=== PATIENT | female | born 1970 | race Caucasian/White ===

== ENCOUNTER 2019-03-02 08:36 | Emergency (ER) | payer OTHER, SELFPAY ==
[2019-03-02 08:37] VITALS: BP 139/84; PULSE 85; RESP 18; TEMP 36.4; O2SAT 98; BMI 30.4
--- NOTE | 2019-03-02 08:55 | ED.VIS.GEN ---
History of Present Illness Chief Complaint: Hypertension Informant: Patient, Family Onset: Today Narrative: Patient presents with concerns for hypertension. She is a history of hypertension and takes a half a tab of lisinopril a day. She believes that tabs are 25 mg. She states she has not checked her blood pressure at home for quite some time and checked it last evening. It was 126/93. Patient states she checked her blood pressure this morning and it read quite high on her home monitor. 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 Pressure readings there were 210/105 and 170/110. Patient states they had checked pressure on her left arm only. Patient went home and took her lisinopril and called her doctor's office. Doctor's office advised the pressure was too high for them to see in the office and she needed to go the emergency room. In triage here blood pressure is 139/84. Patient does report having some intermittent reflux symptoms. She denies headache. She reports being more fatigued, but states she does not sleep well and attributed it to that. - Past Medical History (1) Hypertension Status: Chronic Past Medical History Primary Care Physician: Zenaida Barksdale DO [Primary Care Provider] - Lives: With Family Review of Systems General: Denies: Chills, Fever Eyes: Denies: Visual changes - bilaterally ENT: Denies: Bilateral ear pain Cardiovascular: Reports: Chest pain - She attributes to reflux. Respiratory: Denies: Dyspnea, Cough Gastrointestinal: Denies: Abdominal pain, Nausea, Vomiting Musculoskeletal: Denies: Back pain, Extremity Pain Neurological: Denies: Headache, Weakness, Parasthesia Hematologic: Denies: Easy bruising Allergy: Denies: Uticaria Physical Exam Vital Signs/Narrative: Vital Signs Temp Pulse Resp BP Pulse Ox 03/02/19 08:37 97.6 F L 85 18 139/84 H 98 Inital Vital Signs reviewed: Yes General: Well nourished, Well developed Head: Normocephalic ENT: Moist mucous membranes Neck: Supple Cardiovascular: Regular rate, Regular rhythm Respiratory: No distress, CTA bilaterally Abdomen: Soft, Nontender Back: Nontender Extremities: Nontender Skin: Normal color, No rash Neurological: Alert, Oriented x3, Normal Strength, Normal Sensation Psychological: Normal affect Diagnostic/Tx/Re-eval Impressions Chest X-Ray 03/02/19 09:05 IMPRESSION: Normal x-ray examination of the chest. Electronically Signed: Paul Das, at 9:22 EST , Service support , 03/02/19 09:05 Chest 1 View (Portable) [RAD] Stat Laboratory Results 03/02/19 03/02/19 03/02/19 09:14 09:14 09:14 WBC 7.3 RBC 4.85 Hgb 14.9 Hct 44.4 MCV 91.5 MCH 30.7 MCHC 33.6 RDW Std Deviation 39.5 RDW Coeff of Claudio 11.8 Plt Count 315 MPV 9.6 Immature Gran % (Auto) 0.400 Neut % (Auto) 82.6 H Lymph % (Auto) 11.7 L Grand % (Auto) 4.3 Eos % (Auto) 0.3 Baso % (Auto) 0.7 Absolute Neuts (auto) 6.0 Absolute Lymphs (auto) 0.85 Nucleated RBC % 0 Sodium 139 Potassium 3.9 Chloride 105 Carbon Dioxide 24.0 Anion Gap 10 BUN 12 Creatinine 1.00 Estim Creat Clear Calc 62.58 Est GFR (MDRD) Af Amer 76 Est GFR (MDRD) Non-Af 63 BUN/Creatinine Ratio 12.0 Glucose 115 H Calcium 9.3 Troponin I < 0.015 Serum , Qual NEGATIVE Urine Color Urine Clarity Urine pH Ur Specific [place] Urine Protein Urine Glucose (UA) Urine Ketones Urine Occult Blood Urine Nitrite Urine Bilirubin Urine Urobilinogen Ur Leukocyte Esterase Urine RBC Urine WBC Ur Squamous Epith Cells Urine Bacteria Urine Mucus 03/02/19 09:20 WBC RBC Hgb Hct MCV MCH MCHC RDW Std Deviation RDW Coeff of Claudio Plt Count MPV Immature Gran % (Auto) Neut % (Auto) Lymph % (Auto) Grand % (Auto) Eos % (Auto) Baso % (Auto) Absolute Neuts (auto) Absolute Lymphs (auto) Nucleated RBC % Sodium Potassium Chloride Carbon Dioxide Anion Gap BUN Creatinine Estim Creat Clear Calc Est GFR (MDRD) Af Amer Est GFR (MDRD) Non-Af BUN/Creatinine Ratio Glucose Calcium Troponin I Serum , Qual Urine Color Yellow Urine Clarity Clear Urine pH 7.0 Ur Specific [place] 1.005 Urine Protein Negative Urine Glucose (UA) Normal Urine Ketones Negative Urine Occult Blood 50 H Urine Nitrite Negative Urine Bilirubin Negative Urine Urobilinogen Normal Ur Leukocyte Esterase Negative Urine RBC 0 SEEN Urine WBC 0 SEEN Ur Squamous Epith Cells 0 SEEN Urine Bacteria 0 SEEN Urine Mucus 0 SEEN - EKG Initial EKG Interpretation: Sinus Rhythm - Sinus at 95. Minimal anterior lateral ST depression at approximately 1/2 mm. - Medical Decision Making Patient was observed on panel monitor here. When I first saw the patient her blood pressure in her right arm was 165/88 and left arm was 147/78. At this time I rechecked blood pressure in each arm and they are essentially the same, left arm 150/83, right arm 153/99. At this time I will speak with her primary care physician. My suspicion is that we will have patient check her blood pressure couple times a day and keep a journal and follow-up in the office early next week. After speaking with Dr. Barksdale patient is advised to go ahead and take full tab of lisinopril daily and keep a journal of her blood pressures. ED Disposition - Plan for ED Patient: Disposition: Home or Assisted Living Diagnosis: Hypertension Instructions: HYPERTENSION, Established Referrals: Zenaida Barksdale DO [Primary Care Provider] - 5-7 Days Additional Instructions: Take a full tab of Lisinopril daily. Keep a journal of your blood pressures at home and follow-up with Dr Barksdale next week.
--- NOTE | 2019-03-02 09:05 | RAD_ITS ---
STUDY: X-RAY CHEST REASON FOR EXAM: Female, 48 years old. Chest pain. Hypertension. TECHNIQUE: Single AP portable view of the chest. COMPARISON: None. FINDINGS: The lungs are clear and expanded. There is no demonstrated pleural abnormality. Normal size heart. Normal mediastinum and марина. Normal visualized pulmonary arteries. Normal visualized aortic arch and descending thoracic aorta. Normal visualized thoracic spine. Normal visualized ribs, clavicles, and shoulders. There is no demonstrated abnormality of the visualized soft tissue structures of the upper abdomen. RAD/Chest 1 View (Portable) IMPRESSION: Normal x-ray examination of the chest. Electronically Signed: Paul Das, at 9:22 EST , Service support ,
[2019-03-02 09:23] LABS: Bacteria 0 SEEN /hpf (None Seen); Mucous, Urine 0 SEEN /hpf (<or=2+); Red Blood Cells-Urine 0 SEEN /hpf (0-5); Squamous Epithelial Cells - UA 0 SEEN /hpf (5-10); White Blood Cells 0 SEEN /hpf (0-5)
[2019-03-02 09:27] LABS: Absolute Lymphocyte Count 0.85 X10^3/uL (0.83-4.51); Basophil# 0.05 X10^3/uL; Basophil% 0.7 % (0-1); Eosinophil# 0.02 X10^3/uL; Eosinophils% 0.3 % (0-5); Hematocrit 44.4 % (37-47); Hemoglobin 14.9 g/dL (12.0-15.0); Lymphocyte # 0.85 X10^3/ul (4.0); Lymphocyte % 11.7 % (19-41); Mean Corp Hgb Conc 33.6 g/dL (32-36); Mean Corpuscular Hgb 30.7 pg (27.0-32.0); Mean Corpuscular Volume 91.5 fL (81-99); Mean Platelet Vol. 9.6 fl (6.2-12.0); Monocyte# 0.31 X10^3/uL; Monocyte% 4.3 % (0-10); NRBC Flagged by Analyzer 0 % (0-5); Neutrophil # 6.03 X10^3/uL (2.7-7.7); Neutrophil % 82.6 % (47-70); Platelet Count 315 K/mm3 (150-450); RBC Distribution Width CV 11.8 % (11.6-14.6); RBC Distribution Width SD 39.5 fl (35.1-43.9); Red Blood Count 4.85 M/mm3 (4.2-5.4); White Blood Count 7.3 K/mm3 (4.4-11.0)
[2019-03-02 09:31] LABS: Internal QC Validated? YES +Cl - CLEAR BKGD; Pregnancy, Serum, hCG Quali. NEGATIVE Negative
[2019-03-02 09:36] LABS: Color, Urine Yellow (Yellow); Glucose, Dipstick Normal (Normal); Ketone-Dipstick Negative (Negative); Leukocyte Esterase-Dipstick Negative /ul (Negative); Nitrite-Dipstick Negative (Negative); Occult Blood-Urine 50 /ul (Negative); Protein-Dipstick Negative (Negative); Specific Gravity, Urine 1.005 (1.002-1.030); Urine Bilirubin Dipstick Negative (Negative); Urine Clarity Clear (Clear); Urine Urobilinogen Normal (Normal)
[2019-03-02 09:42] LABS: Anion Gap 10 (5-15); BUN 12 mg/dL (7-18); Calcium,Total 9.3 mg/dL (8.5-10.1); Chloride 105 mmol/L (98-107); EST Glomerular Filtration Rate 63 mL/min (>60); Est Glom Filt Rate - Afr Amer 76 mL/min (>60); Estimated Creatinine Clearance 62.58 ml/min; Glucose 115 mg/dL (74-106); Potassium 3.9 mmol/L (3.5-5.1); Sodium Level 139 mmol/L (136-145)
[2019-03-02 10:25] VITALS: BP 158/99; RESP 20
== END 2019-03-02 10:27 | disposition home or self-care (01) ==
PROVIDERS: Emergency Provider Emergency Medicine; Family Provider Internal Medicine; PCP Internal Medicine
DX: I10 Essential (primary) hypertension (principal); Z79.899 Other long term (current) drug therapy
CPT/HCPCS: 71045; 80048; 81001; 84484; 84703; 85025; 93005; 99285

== ENCOUNTER 2020-07-24 14:58 | Outpatient (RCR) | payer OTHER, SELFPAY | END 2020-09-24 23:59 | LOC: IMMUN 14:58 | PROVIDERS: PCP Internal Medicine; Referring Provider Family Medicine; Visit Provider Family Medicine | DX: Z23 Encounter for immunization (principal) | CPT/HCPCS: 0001A; 0002A; 91300 ==

== ENCOUNTER 2021-12-06 23:48 | Emergency (ER) | payer OTHER, SELFPAY ==
[2021-12-06 23:50] VITALS: BP 159/93; PULSE 115; RESP 18; TEMP 36.7; O2SAT 99; BMI 25.0
[2021-12-07 00:46] VITALS: BP 148/87; PULSE 103; RESP 16; O2SAT 98
--- NOTE | 2021-12-07 00:46 | EKG12_ITS ---
Test Reason : PALPS Blood Pressure : / mmHG Vent. Rate : 096 BPM Atrial Rate : 096 BPM P-R Int : 118 ms QRS Dur : 080 ms QT Int : 344 ms P-R-T Axes : 051 073 039 degrees QTc Int : 434 ms Normal sinus rhythm Nonspecific ST abnormality Abnormal ECG Confirmed by OSIEL FANG, JARED ([id number]), video editor MELVI MATTA ([id number]) on 12/09/2021 12:48:49 PM Referred By: ALVARO Confirmed By:JARED CARTAGENA MD
--- NOTE | 2021-12-07 00:47 | EDS_ITS ---
HPI History of Present Illness Chief Complaint: Palpitations Informant: patient and spouse/S.O. Onset/Context/Timing Onset: Today (Several hours ago) Context: Sudden Onset (Soon after got off couch and took a drink of alcoholic beverage) Timing: Continuous Quality: Racing Location: chest Current Severity: Gone Maximum Severity: Moderate Worsened by: nothing Relieved by: nothing in particular Associated Symptoms Associated Symptoms: none Narrative Narrative: patient had sudden onset of racing heartbeat tonight. No associated chest discomfort, dyspnea, lightheadedness or near syncope/syncope, started going away as she came to the ED and now she is asymptomatic. She states when it was racing she was feeling anxious and that made it feel like it was racing further, she checked her blood pressure and it was elevated which made her feel more anxious. She has had episodes like this in the past but the last one was 2 or 3 years ago, this is only the third or fourth time it has happened. [facility] Medical History (Updated 12/07/21 @ 01:[address] Wesley Luna MD) Hypertension Home Medications lisinopril 10 mg tablet 5 mg PO DAILY 03/02/19 [History Last Taken Unknown] norethindrone 1 mg-ethinyl estradiol 20 mcg (21)-iron 75 mg (7) tablet 1 tab PO DAILY 03/02/19 [History Last Taken Unknown] levothyroxine 25 mcg tablet 25 mcg PO DAILY 12/07/21 [History Last Taken Unknown] Allergy/AdvReac Type Severity Reaction Status Date / Time No Known Allergies Allergy Verified 12/06/21 23:50 Social History Smoking Status: Never smoker ROS ROS ED Constitutional Constitutional ED: Denies chills or fever(s) Eyes Eyes: Denies change in vision or diplopia ENT ENT ED: Denies rhinorrhea or sore throat Cardiovascular Cardiovascular: Reports palpitations and racing heartbeat; Denies chest pain Respiratory/Chest Respiratory/Chest: Denies cough or dyspnea Gastrointestinal Gastrointestinal: Denies abdominal pain, diarrhea, nausea or vomiting Genitourinary Genitourinary ED: Denies dysuria or hematuria Musculoskeletal Musculoskeletal: Denies back pain or neck pain Integumentary Denies abscess or rash Neurologic Neurologic: Denies headache(s), paresthesias or weakness Psychiatric Psychiatric: Reports anxiety; Denies suicidal thoughts EXAM Physical Exam Const Vital Signs: 12/06/21 23:50 12/07/21 00:46 Temperature 98.1 F Temperature Source Temporal Pulse Rate 115 H 103 H Respiratory Rate 18 16 Blood Pressure 159/93 H 148/87 H Blood Pressure Mean 115 107 Pulse Ox 99 98 Oxygen Delivery Method Room Air Room Air Positive well nourished and well developed General Appearance ED: well developed and NAD HEENT Reports moist mucous membranes normocephalic and atraumatic Eyes PERRL and EOMs intact bilaterally Neck full ROM and supple Resp normal respiratory effort and clear to auscultation bilaterally Cardio regular rate and regular rhythm Cardio Narrative: Systolic ejection murmur heard best LLSB, 2/6 Rate: Negative for tachycardic GI non-tender and non-distended Auscultation: normoactive bowel sounds Palpation: soft Back/Spine no CVA tenderness General Back: other FROM Extremity normal to inspection General Extremety ED: Negative for edema, pulses abnormal or tenderness General Extremity: Negative for edema or pulses abnormal Neuro oriented x3, CN's II-XII intact bilaterally and no sensory deficits noted Sensorium / Orientation: awake and alert Motor Exam: strength 5/5 throughout Skin no rashes or lesions noted and no wounds MDM MDM MDM Narrative Medical decision making narrative: Patient has a normal EKG and a sinus rhythm on the monitor at this time and she is asymptomatic. I discussed her heart murmur, she states her doctor has heard it as well and she remembers having an echocardiogram, she was now referred to cardiology at that point, and does not remember if it showed anything significant. I reviewed the results in our system, the last when she had was 2012 and it showed mild 1+ tricuspid valve insufficiency, the valve was otherwise unremarkable and the other valves were unremarkable. It is unknown if this could be leading to a dysrhythmia. I recommend an outpatient follow-up with cardiology. I ran her blood counts and electrolytes here as we watched her blood pressure and rhythm on the monitor. Glucose is 209, this should be rechecked ideally when fasting as an outpatient. She had no recurrence of symptoms, her blood pressure gradually came down, 141 systolic the last time I saw it, and she is stable for discharge. Lab Data Attestation: I reviewed the patient's lab results. Labs: Laboratory Results - last 24 hr 12/07/21 12/07/21 00:20 00:20 WBC 4.6 RBC 4.35 Hgb 14.0 Hct 40.8 MCV 93.8 MCH 32.2 H MCHC 34.3 RDW Std Deviation 41.5 RDW Coeff of Claudio 11.9 Plt Count 264 MPV 9.5 Immature Gran % (Auto) 0.200 Neut % (Auto) 45.7 L Lymph % (Auto) 44.6 H [place] % (Auto) 7.1 Eos % (Auto) 1.1 Baso % (Auto) 1.3 H Absolute Neuts (auto) 2.1 Absolute Lymphs (auto) 2.06 Nucleated RBC % 0 Sodium 140 Potassium 3.9 Chloride 109 H Carbon Dioxide 26.0 Anion Gap 5 BUN 17 Creatinine 1.06 H Estim Creat Clear Calc 57.13 Est GFR (MDRD) Af Amer 71 Est GFR (MDRD) Non-Af 58 L BUN/Creatinine Ratio 16.0 Glucose 209 H Calcium 8.5 Rhythm Strip Rhythm Strip: Sinus Rhythm Rate: 100 Ectopy: None EKG Initial EKG: Attestation: I personally reviewed and interpreted this EKG as follows: Interpretation: Sinus Rhythm and No Acute Injury Pattern Discharge Plan Triage Chief Complaint: Palpitations ED Provider: Wesley Luna Dx/Rx/DC Orders Clinical Impression: Palpitations, Hyperglycemia Instructions: ED Understanding Supraventricular Tachycardia (SVT) Prescriptions: No Action norethindrone-e.estradiol-iron 1 EACH tablet 1 tab PO DAILY Label Comments: TAKE 1 TABLET BY MOUTH EVERY DAY lisinopril 10 MG tablet 5 mg PO DAILY Label Comments: TAKE 1 TABLET BY MOUTH TWICE DAILY levothyroxine 25 mcg tablet 25 mcg PO DAILY Label Comments: TAKE 1 TABLET BY MOUTH EVERY DAY IN THE MORNING ON EMPTY STOMACH Primary Care Provider: Zenaida Barksdale Referrals: Bisi Jamison MD [Med Staff - Active Staff] - (Call for appointment) Zenaida Barksdale DO [Primary Care Provider] - Activity Restrictions/Additional Instructions: Your blood sugar was 209, that is a random 1 and is a little on the high side it should be lower than 200, talk to your doctor about this and rechecking it as well. Disposition Disposition: Home, Self Care
[2021-12-07 01:04] LABS: Absolute Lymphocyte Count 2.06 X10^3/uL (0.83-4.51); Absolute Neutrophil Count 2.1 X10^3/uL (2.0-7.7); Basophil# 0.06 X10^3/uL; Basophil% 1.3 % (0-1); Eosinophil# 0.05 X10^3/uL; Eosinophils% 1.1 % (0-5); Hematocrit 40.8 % (37-47); Lymphocyte # 2.06 X10^3/ul (0.83-4.51); Lymphocyte % 44.6 % (19-41); Mean Corp Hgb Conc 34.3 g/dL (32-36); Mean Corpuscular Hgb 32.2 pg (27.0-32.0); Mean Corpuscular Volume 93.8 fL (81-99); Mean Platelet Vol. 9.5 fl (6.2-12.0); Monocyte# 0.33 X10^3/uL; Monocyte% 7.1 % (0-10); NRBC Flagged by Analyzer 0 % (0-5); Neutrophil # 2.11 X10^3/uL (2.7-7.7); Neutrophil % 45.7 % (47-70); POSITIVE MORPHOLOGY YES; Platelet Count 264 K/mm3 (150-450); RBC Distribution Width CV 11.9 % (11.6-14.6); RBC Distribution Width SD 41.5 fl (35.1-43.9); Red Blood Count 4.35 M/mm3 (4.2-5.4); White Blood Count 4.6 K/mm3 (4.4-11.0)
[2021-12-07 01:06] LABS: Differential Indicated SCAN CRITERIA MET
[2021-12-07 01:15] LABS: Anion Gap 5 (5-15); BUN 17 mg/dL (7-18); Calcium,Total 8.5 mg/dL (8.5-10.1); Chloride 109 mmol/L (98-107); Creatinine, Serum 1.06 mg/dL (0.55-1.02); EST Glomerular Filtration Rate 58 mL/min (>60); Est Glom Filt Rate - Afr Amer 71 mL/min (>60); Estimated Creatinine Clearance 57.13 ml/min; Glucose 209 mg/dL (74-106); Potassium 3.9 mmol/L (3.5-5.1); Sodium Level 140 mmol/L (136-145)
[2021-12-07 01:25] VITALS: PULSE 100; RESP 15; O2SAT 98
== END 2021-12-07 01:33 | disposition home or self-care (01) ==
PROVIDERS: Emergency Provider Emergency Medicine; PCP Internal Medicine; Visit Provider Emergency Medicine
DX: R00.2 Palpitations (principal); R73.9 Hyperglycemia, unspecified; I10 Essential (primary) hypertension; Z79.899 Other long term (current) drug therapy
CPT/HCPCS: 80048; 85025; 93005; 99284; A4216

== ENCOUNTER → 2022-01-06 | Outpatient (CLI) | payer OTHER, SELFPAY ==
--- NOTE | 2022-01-06 12:45 | ECHOD_ITS ---
Reason For Study: Tricuspid Insufficiency Procedure This was a 2D Doppler, Color Flow transthoracic echocardiogram. The exam was of adequate technical quality. Exam performed in department. Left Ventricle Normal LV size. Left ventricular systolic function is hyperdynamic. The estimated ejection fraction is 75 %. Diastolic function is indeterminate. No regional wall motion abnormalities noted. Right Ventricle Normal RV size. Normal systolic function. Atria Normal left atrium. Normal right atrium. No doppler evidence for ASD. Mitral Valve There is no mitral annular calcification. Normal mitral valve. Trivial mitral valve insufficiency. Tricuspid Valve Normal tricuspid valve. Mild to moderate (1-2+) eccentric tricuspid valve insufficiency. Right ventricular systolic pressure estimated to be 51 mmHg. Aortic Valve Trisinus/trileaflet aortic valve. Normal aortic valve. Pulmonic Valve The pulmonic valve is not well visualized. Trivial pulmonic valve insufficiency. Great Vessels Normal sized aortic root. Pericardium/Pleural No pericardial effusion. MMode/2D Measurements & Calculations LVIDd: 3.9 cm IVSd: 0.65 cm Ao root diam: 3.0 cm LVIDs: 2.4 cm LVPWd: 0.89 cm LA dimension: 3.2 cm RVDd: 3.7 cm FS: 38.4 % LAV(MOD-bp): 62.9 ml LA A4 area: 21.2 cm2 RA A4 area: 19.1 cm2 LAV(MOD-bp) Indexed: 35.5 ml/m2 LAV(MOD-sp2): 59.5 ml LAV(MOD-sp4): 64.6 ml Time Measurements MV dec time: 0.20 sec Doppler Measurements & Calculations MV E max gustabo: 106.4 cm/sec Lat Peak E' Gust[place]: 15.5 cm/sec Med Peak E' [place]: 15.4 cm/sec MV A max gustabo: 77.0 cm/sec E/E' lat: 6.9 E/E' med: 6.9 MV E/A: 1.4 MV V2 max: 118.3 cm/sec MV P1/2t max gustabo: 117.3 cm/sec Ao V2 max: 205.8 cm/sec MV max P.6 mmHg MV P1/2t: 65.4 msec Ao max P.0 mmHg MV V2 mean: 60.8 cm/sec MV dec slope: 525.6 cm/sec2 Ao V2 mean: 139.1 cm/sec MV mean P.8 mmHg MVA(P1/2t): 3.4 cm2 Ao mean P.9 mmHg MV V2 VTI: 27.6 cm Ao V2 VTI: 42.2 cm LV V1 max: 156.0 cm/sec PA V2 max: 128.9 cm/sec TR max gustabo: 325.6 cm/sec LV V1 max P.7 mmHg PA V2 mean: 96.9 cm/sec TR max P.6 mmHg LV V1 mean P.8 mmHg LV V1 mean: 114.6 cm/sec LV V1 VTI: 34.2 cm ECHO/Echo Complete Interpretation Summary Left ventricular systolic function is hyperdynamic. The estimated ejection fraction is 75 %. Trivial mitral valve insufficiency. Mild to moderate (1-2+) eccentric tricuspid valve insufficiency. Trivial pulmonic valve insufficiency. Right ventricular systolic pressure estimated to be 51 mmHg c/w pulmonary hyper tension. Diastolic function is indeterminate. Ordering Physician: Zenaida Barksdale Referring Physician: Zenaida Barksdale Performed By: Kwdawo Huerta RCS
== END | disposition home or self-care (01) ==
LOC: CVS 12:44
PROVIDERS: PCP Internal Medicine; Referring Provider Internal Medicine; Visit Provider Internal Medicine
DX: I07.1 Rheumatic tricuspid insufficiency (principal)
CPT/HCPCS: 93306

== ENCOUNTER 2022-01-23 21:56 | Emergency (ER) | payer OTHER, SELFPAY ==
[2022-01-23 21:59] VITALS: BP 151/81; PULSE 78; RESP 16; TEMP 36.4; O2SAT 97; BMI 25.9
[2022-01-23 22:12] VITALS: BP 141/94
[2022-01-23 22:56] VITALS: BP 131/81
--- NOTE | 2022-01-23 23:13 | EX.ED.DYSGE1 ---
HPI History of Present Illness Chief Complaint: Hypertension Informant: patient, spouse/S.O. and family Narrative Narrative: Patient had a switch from lisinopril at a low dose to nifedipine 30 mg a day just about a week ago. Since then her blood pressures have been running higher. She was checking them this evening and they were running up to the upper 160s systolic. She is not really having headache or visual changes. Sometimes she feels flushed when she takes the nifedipine but this was not occurring with the elevated blood pressures. The reason for the blood pressure switch was there is some question of some early pulmonary hypertension on an echo. She actually has follow-up with cardiology this . They note that their blood pressure machine was bought [id number]. It is about 3 years old. They read the instructions and it is not supposed to be kept in a humid area and has been kept in the bathroom and they are wondering if the machine is not working. They read the instructions and it is not supposed to be kept in a humid area and has been kept in the bathroom and they are wondering if the machine is not working. Since arriving here the patient's blood pressure has generally been 130s systolic. [facility] Medical History ADHD (attention deficit hyperactivity disorder) Essential hypertension Hypertension Hypothyroidism Non-rheumatic tricuspid valve insufficiency Pulmonary hypertension Pure hypercholesterolemia Home Medications levothyroxine 25 mcg tablet 25 mcg PO DAILY 12/07/21 [History Last Taken Unknown] ascorbic acid (vitamin C) 1,000 mg tablet 1 g PO DAILY 01/23/22 [History Last Taken Unknown] multivitamin 1 tab PO DAILY 01/23/22 [History Last Taken Unknown] nifedipine 30 mg tablet,extended release 30 mg PO DAILY 01/23/22 [History Last Taken Unknown] rosuvastatin 10 mg tablet 10 mg PO QHS 01/23/22 [History Last Taken Unknown] ubidecarenone-omega 3-vit E 25 mg-150 (90-60) mg-200 unit capsule (Co [id number] E-Fish Oil) 1 cap PO DAILY 01/23/22 [History Last Taken Unknown] vitamin B complex (Complex B-100 tablet,extended release) 1 tab PO Q OTHER DAY 01/23/22 [History Last Taken Unknown] Allergy/AdvReac Type Severity Reaction Status Date / Time No Known Allergies Allergy Verified 12/06/21 23:50 Family History Grandmother Heart disease Hypothyroidism Mother Hypothyroidism Diabetes Congestive heart failure Father Cancer Lung Social History Smoking Status: Never smoker alcohol intake: current details: occasional substance use type: does not use caffeine: Yes EXAM Physical Exam Const Vital Signs: 01/23/22 21:59 01/23/22 21:59 01/23/22 22:12 Temperature 97.6 F L 97.6 F L Temperature Source Temporal Temporal Pulse Rate 78 78 Respiratory Rate 16 16 Respiratory Pattern Normal Blood Pressure 151/81 H 151/81 H Blood Pressure Mean 104 104 Pulse Ox 97 97 Oxygen Delivery Method Room Air Room Air 01/23/22 22:12 01/23/22 22:56 Temperature Temperature Source Pulse Rate Respiratory Rate Respiratory Pattern Blood Pressure 141/94 H 131/81 H Blood Pressure Mean 109 97 Pulse Ox Oxygen Delivery Method Room Air Room Air Positive well nourished and well developed General Appearance ED: well developed and NAD; Negative for cyanotic, diaphoretic or pallor Eyes General Eye ED: Negative for scleral icterus Neck supple Resp normal respiratory effort and clear to auscultation bilaterally Cardio regular rate and regular rhythm Rate: Negative for bradycardia or tachycardic GI normal to inspection, nondistended, normoactive bowel sounds and non-tender Back/Spine no CVA tenderness Extremity normal to inspection General Extremety ED: Negative for edema or tenderness General Extremity: Negative for edema Neuro Sensorium / Orientation: alert Psych mental status grossly normal Skin General Skin Exam: Negative for pallor MDM MDM MDM Narrative Medical decision making narrative: Patient has multiple blood pressure checks here that are much more normal. She is not concerned about blood pressures in the 130s. I do not think we need to alter her therapy at this point. There is a question if her machine is working accurately at home. They will see if they can have this checked at her follow-up visit to see if it correlates directly with the cardiology blood pressure cuff. We will not change her meds at this point. She just had blood work done that I can see the end of November. She states she actually had blood work done more recently by her private physician that was okay. I do not think repeating this blood work EKGs x-rays will be needed at this time. Discharge Plan Triage Chief Complaint: Hypertension ED Provider: Zackery Coleman Dx/Rx/DC Orders Clinical Impression: Essential hypertension Instructions: ED Hypertension, Established Prescriptions: No Action rosuvastatin 10 mg tablet 10 mg PO QHS multivitamin Tablet 1 tab PO DAILY Co [id number] E-Fish Oil 25-150-200 mg-mg-unit capsule 1 cap PO DAILY Complex B-100 Tablet Extended Release 1 tab PO Q OTHER DAY ascorbic acid (vitamin C) 1,000 mg tablet 1 g PO DAILY levothyroxine 25 mcg tablet 25 mcg PO DAILY Label Comments: TAKE 1 TABLET BY MOUTH EVERY DAY IN THE MORNING ON EMPTY STOMACH nifedipine 30 mg tablet extended release 30 mg PO DAILY Primary Care Provider: Zenaida Barksdale Referrals: Zenaida Barksdale DO [Primary Care Provider] - Hussein De León MD [Med Staff - Active Staff] - Keep Skip appointment Disposition Disposition: Home, Self Care
[2022-01-23 23:24] VITALS: BP 144/71; PULSE 70; RESP 17; O2SAT 98
== END 2022-01-23 23:29 | disposition home or self-care (01) ==
PROVIDERS: Emergency Provider Emergency Medicine; PCP Internal Medicine; Visit Provider Emergency Medicine
DX: I10 Essential (primary) hypertension (principal); E78.00 Pure hypercholesterolemia, unspecified; E03.9 Hypothyroidism, unspecified; Z79.899 Other long term (current) drug therapy; Z82.49 Family history of ischemic heart disease and other diseases of the circulatory system
CPT/HCPCS: 99282

== ENCOUNTER → 2022-02-06 | Outpatient (CLI) | payer OTHER, SELFPAY ==
--- NOTE | 2022-02-06 06:10 | RAD_ITS ---
STUDY: X-RAY CHEST REASON FOR EXAM: Female, 51 years old. Pulmonary HTN TECHNIQUE: PA and lateral views of the chest. COMPARISON: 2018 FINDINGS: The lungs are clear and expanded. There is no demonstrated pleural abnormality. Normal size heart. Normal mediastinum and марина. Normal visualized pulmonary arteries. Normal visualized aortic arch and descending thoracic aorta. Normal visualized thoracic spine. Normal visualized ribs, clavicles, and shoulders. There is no demonstrated abnormality of the visualized soft tissue structures of the upper abdomen. RAD/Chest PA and Lateral IMPRESSION: Normal x-ray examination of the chest. Electronically Signed: Neville Kim MD at 9:26 EDT ,
== END | disposition home or self-care (01) ==
LOC: RAD 06:02
PROVIDERS: PCP Internal Medicine; Referring Provider Internal Medicine Cardiovascular Disease; Visit Provider Internal Medicine Cardiovascular Disease
DX: R00.2 Palpitations (principal); I27.20 Pulmonary hypertension, unspecified; E78.00 Pure hypercholesterolemia, unspecified; I10 Essential (primary) hypertension; I36.1 Nonrheumatic tricuspid (valve) insufficiency
CPT/HCPCS: 71046

== ENCOUNTER → 2022-02-12 | Outpatient (CLI) | payer OTHER, SELFPAY | END | disposition home or self-care (01) | LOC: CVS 11:51 | PROVIDERS: PCP Internal Medicine; Referring Provider Internal Medicine Cardiovascular Disease; Visit Provider Internal Medicine Cardiovascular Disease | DX: R69 Illness, unspecified (principal) ==

== ENCOUNTER → 2022-02-20 | Outpatient (CLI) | payer OTHER, SELFPAY ==
[2022-02-20 07:55] LABS: Erythrocyte Sedimentation Rate 10 mm/hr (0-30)
[2022-02-20 08:10] LABS: BNP,B-Type NATRIURETIC PEPTIDE 35.8 pg/mL (0-100)
[2022-02-20 08:16] LABS: AST(SGOT) 17 U/L (15-37); Alanine Aminotransfer ALT/SGPT 25 U/L (13-56); Albumin, Serum 3.2 g/dL (3.2-5.0); Alkaline Phosphatase 63 U/L (45-117); Anion Gap 6 (5-15); BUN 17 mg/dL (7-18); Bilirubin, Direct 0.22 mg/dL (0.00-0.30); CRP < 2.90 mg/L (0.0-3.0); Chloride 107 mmol/L (98-107); EST Glomerular Filtration Rate 81 mL/min (>60); Est Glom Filt Rate - Afr Amer 98 mL/min (>60); Globulin 3.4 g/dL (2.2-4.2); Potassium 3.9 mmol/L (3.5-5.1); Protein, Total 6.6 g/dL (6.4-8.2); Rheumatoid Factor < 10.0 IU/mL (<15); Sodium Level 139 mmol/L (136-145)
== END | disposition home or self-care (01) ==
LOC: LAB 05:59
PROVIDERS: PCP Internal Medicine; Referring Provider Internal Medicine Pulmonary Disease; Visit Provider Internal Medicine Pulmonary Disease
DX: I27.20 Pulmonary hypertension, unspecified (principal)
CPT/HCPCS: 36415; 80051; 80076; 82565; 83880; 84520; 85652; 86140; 86431

== ENCOUNTER → 2022-05-22 | Outpatient (CLI) | payer OTHER, SELFPAY ==
[2022-05-22 13:41] LABS: Erythrocyte Sedimentation Rate 9 mm/hr (0-30)
[2022-05-22 13:55] LABS: CRP < 2.90 mg/L (0.0-3.0)
[2022-05-25 14:25] LABS: ANTINUCLEAR ANTIBODIES DIRECT Negative (Negative); Anti-dsDNA Ab <1 IU/mL (0-9)
== END | disposition home or self-care (01) ==
LOC: LAB 12:09
PROVIDERS: PCP Internal Medicine; Referring Provider Anesthesiology Pain Medicine; Visit Provider Anesthesiology Pain Medicine
DX: I27.20 Pulmonary hypertension, unspecified (principal); R06.02 Shortness of breath
CPT/HCPCS: 36415; 85652; 86038; 86140; 86225

== ENCOUNTER → 2022-09-21 | Outpatient (CLI) | payer OTHER, SELFPAY ==
--- NOTE | 2022-09-21 13:59 | ECHOD_ITS ---
Reason For Study: PHTN Procedure This was a 2D Doppler, Color Flow transthoracic echocardiogram. Exam performed in department. Left Ventricle Normal LV size. Left ventricular systolic function is normal. The estimated ejection fraction is 65 %. Stage 1 diastolic dysfunction. No regional wall motion abnormalities noted. Right Ventricle Normal RV size. Normal systolic function. Atria Normal left atrium. Normal right atrium. Mitral Valve Normal mitral valve. Tricuspid Valve Normal tricuspid valve. Mild (1+) tricuspid valve insufficiency. Pulmonary artery systolic pressure is 52 mmHg. Aortic Valve Trisinus/trileaflet aortic valve. Pulmonic Valve Normal pulmonic valve. Great Vessels Normal aortic root. Pericardium/Pleural No pericardial effusion. MMode/2D Measurements & Calculations LVIDd: 3.8 cm IVSd: 0.87 cm LAV(MOD-bp): 47.6 ml LVIDs: 2.1 cm LVPWd: 0.84 cm LAV(MOD-bp) Indexed: 26.8 ml/m2 RVDd: 3.2 cm FS: 45.4 % LAV(MOD-sp2): 53.0 ml LAV(MOD-sp4): 41.3 ml SV(MOD-sp4): 34.4 ml SV(sp4-el): 37.4 ml LVAd ap4: 20.0 cm2 LVLd ap4: 7.3 cm EDV(MOD-sp4): 44.1 ml EDV(sp4-el): 46.8 ml LVAs ap4: 7.7 cm2 LVLs ap4: 5.3 cm ESV(MOD-sp4): 9.6 ml ESV(sp4-el): 9.4 ml EF(MOD-sp4): 78.1 % EF(sp4-el): 79.8 % LA A4 area: 16.8 cm2 RA A4 area: 17.3 cm2 Time Measurements MV dec time: 0.16 sec Doppler Measurements & Calculations MV E max gustabo: 106.8 cm/sec Lat Peak E' Gustabo: 18.5 cm/sec Med Peak E' Gustabo: 14.0 cm/sec MV A max gustabo: 86.9 cm/sec E/E' lat: 5.8 E/E' med: 7.6 MV E/A: 1.2 MV V2 max: 106.9 cm/sec MV dec slope: 663.7 cm/sec2 PA V2 max: 148.8 cm/sec MV max P.6 mmHg PA V2 mean: 111.5 cm/sec MV V2 mean: 64.9 cm/sec MV mean P.9 mmHg MV V2 VTI: 26.2 cm TR max gustabo: 346.6 cm/sec TR max P.0 mmHg ECHO/Echo Complete Interpretation Summary Normal LV size. Left ventricular systolic function is normal. The estimated ejection fraction is 65 %. Pulmonary artery systolic pressure is 52 mmHg. Stage 1 diastolic dysfunction. Ordering Physician: David Cooney V Referring Physician: David Cooney V Performed By: Mackenzie Chatman RCS
== END | disposition home or self-care (01) ==
LOC: CVS 13:58
PROVIDERS: PCP Internal Medicine; Referring Provider Internal Medicine Pulmonary Disease; Visit Provider Internal Medicine Pulmonary Disease
DX: I27.20 Pulmonary hypertension, unspecified (principal)
CPT/HCPCS: 93306

== ENCOUNTER 2024-10-12 14:30 | Outpatient (RCR) | payer OTHER, SELFPAY ==
--- NOTE | 2024-08-14 14:09 | HP.PTEVAL ---
Patient's Visit Information Visit Information Visit Information: MELVI IBARRA is a 53 year old F referred to Physical Therapy by Dr. Zenaida Barksdale DO with a diagnosis of cervical radiculopathy, trap spams, L IT band pain, piriformis and gastroc. Date of Evaluation: 08/11/24 Physical Therapist: Miguel Peng DPT Visit Plan Frequency: 2x /Week Duration: 4 Weeks Plan: Start with core and cervical strengthening lumbar ROM into extension. Add in DN as needed for cervical erector spinae and B UT. Subjective Subjective: Pt. is here today for her initial evaluation with diagnosis of cervical radiculopathy, trap spams, L IT band pain, piriformis pain and gastroc pain. Pt. has marked multiple issues, concerns for multiple signs suggesting systemic issues. Pt. reports not as much neck pain, but is more stiffness. Pt. reports having tingle in her L shoulder and shoulder blade. I can adjust a little bit and it does a away. Pt. reports that it is more annoying than painful. Pain Cervical spine: Pain Intensity (Out of 10): 2 Objective Objective: POSTURE: Pt. has fairly normal posture with out major FH posture. PALPATION: Pt. bas mild karuna NEURO: normal sensation and normal DTR of BUEs/BLEs. ROM: Pt. has normal cervical spine ROM, but does report some increase tingling with increased flexion. No marked issues. LUMBAR SPINE: normal ROM, but had a light increase in symptoms with extension, no pain with rest of movements. MMT: Pt. has 5/5 strength throughout BLEs, Core strength- fair-. BUEs 5/5 throughout. GAIT: Pt. has normal gait pattern. No abnormalities noted. STAIRS: Normal. Balance/Special Test Scores Oswestry Neck Score: 13 Goals Goal 1:: LTG: pt. to be I with HEP. Goal Time Frame: 4-6 Weeks Goal 2:: STG: Pt. to have no pain with all work and recreational activities. Goal Time Frame: 2-4 Weeks Goal 3:: LTG: pt. to sleep throughout the night without increase in symptoms. Goal Time Frame: 4-6 Weeks Goal 4:: LTG: Pt. to have full lumbar/cervical ROM without increase in symptoms. Goal Time Frame: 4-6 Weeks Goal 5:: LTG: Pt. to reports no cervical or lumbar radicular symptoms. Goal Time Frame: 4-6 Weeks Goal 6:: LTG: Pt. to complete all work activities without increase in neck or back pain. Goal Time Frame: 4-6 Weeks Rehabilitation Potential Physical Therapy Diagnosis: Pt. has signs and symptoms consistent with cervical radiculopathy, trap spams, L IT band pain, piriformis pain and gastroc pain. Pt. appears to have more chronic neck pain/tightness, but not as severe radicular symptoms. She is also having some low back pain that seems to progressing into her leg, but not marked radicular symptoms with testing today. Pt. would benefit from PT to address the above limitation progressing back to all recreational/work activities without limitations. Anticipated Interventions Therapeutic Exercise to Include: Strength training, Power training, Endurance training, Body mechanics, Flexibilty training, Passive ROM and Active ROM For the Purpose of:: To decrease pain, To decrease swelling/inflammation, To increase ROM, To improve nutrient delivery to tissue, To increase oxygenation perfusion, To improve health of tissue, To decrease soft tissue restriction and To increase flexibility/ROM Manual Therapy Techniques to Include: Mobilization, Functional dry needling and Soft tissue mobilization For the Purpose of:: To decrease pain, To decrease swelling/inflammation, To increase ROM and To improve nutrient delivery to tissue Text: Thank you for the opportunity to evaluate your patient. For Medicare and Medicare HMO plans, please review the plan of care and approve it. It will need to be FAXED BACK to us at [phone] for Medicare purposes. For Medicare only, by signing this I certify the plan of care. Please let me know if there are questions or concerns regarding this plan of care. Physician Signature: Date:
== END 2024-10-12 19:00 | disposition home or self-care (01) ==
LOC: PT 14:30
PROVIDERS: PCP Internal Medicine; Referring Provider Internal Medicine; Visit Provider Internal Medicine
DX: M54.12 Radiculopathy, cervical region (principal); M76.32 Iliotibial band syndrome, left leg
CPT/HCPCS: 97110; 97140; 97161

== ENCOUNTER 2025-03-16 17:41 | Emergency (ER) | payer OTHER, SELFPAY ==
[2025-03-16 17:42] VITALS: BP 146/87; PULSE 113; RESP 18; TEMP 35.9; O2SAT 99; BMI 31.1
--- NOTE | 2025-03-16 17:59 | EKG12_ITS ---
Test Reason : ANXIETY Blood Pressure : */* mmHG Vent. Rate : 86 BPM Atrial Rate : 86 BPM P-R Int : 128 ms QRS Dur : 84 ms QT Int : 348 ms P-R-T Axes : 56 69 32 degrees QTcB Int : 416 ms Normal sinus rhythm Normal ECG Confirmed by Eduard Limon ([id number]), fashion editor GLORIA GARNETT ([id number]) on 03/19/2025 8:37:10 AM Referred By: Confirmed By: Eduard Limon
--- NOTE | 2025-03-16 18:00 | EX.ED.DYSGE1 ---
HPI History of Present Illness Chief Complaint: General Illness Detail of Chief Complaint: Recent upper respiratory infection and palpitations Informant: patient and family Onset/Context/Timing Onset: Days Context: Sudden Onset Timing: Intermittent and Lasts (Seconds) Quality: Palpitations Location: Chest Current Severity: Gone Maximum Severity: Moderate Worsened by: Nothing Relieved by: Nothing Associated Symptoms Associated Symptoms: None Narrative Narrative: Patient is a 54-year-old woman. She has history of hypothyroidism, hypertension, hypercholesterolemia who has had upper respiratory tract infection symptoms started 8 days ago. She has mild rhinorrhea, congestion postnasal drainage. 2 when her symptoms started. She does have a cough which is nonproductive. What concerned her was that she is having palpitations. There is no exacerbating, precipitating or alleviating factors. She has no associated symptoms. She denies chest pressure, tightness or heaviness. She denies pain with breathing. She denies leg pain, swelling discoloration. She denies history of VTE. When she feels the palpitations she has not checked her heart rate. She states it only last seconds. She denies abdominal pain, she denies black or maroon-colored stool. Prior similar symptoms: No Recent Illness/Hospitalization: No PFSH PFS Medical History Palpitations Pure hypercholesterolemia ADHD (attention deficit hyperactivity disorder) Hypothyroidism Pulmonary hypertension Essential hypertension Non-rheumatic tricuspid valve insufficiency Hypertension Home Medications Medication Instructions Recorded Last Taken Type levothyroxine 25 mcg tablet 25 mcg PO DAILY 12/07/21 Unknown History ascorbic acid (vitamin C) 1,000 mg 1 g PO DAILY 01/23/22 Unknown History tablet multivitamin 1 tab PO DAILY 01/23/22 Unknown History ubidecarenone-omega 3-vit E 25 1 cap PO DAILY 01/23/22 Unknown History mg-150 (90-60) mg-200 unit capsule (Co [id number] E-Fish Oil) cholecalciferol (vitamin D3) 25 25 mcg PO DAILY 01/29/22 Unknown History mcg (1,000 unit) tablet vitamin B complex (Complex B-100 1 tab PO DAILY 05/01/22 Unknown History tablet,extended release) lisinopril 5 mg tablet 7.5 mg PO DAILY 02/25/24 Unknown History rosuvastatin 10 mg tablet 10 mg PO Q OTHER DAY 02/25/24 Unknown History cetirizine 10 mg tablet (Zyrtec) 10 mg PO DAILY 02/23/25 Unknown History magnesium glycinate mg PO DAILY 02/23/25 Unknown History metformin 500 mg tablet,extended 500 mg PO QPM #90 tabs 03/09/25 Unknown Rx release 24 hr tizanidine 4 mg capsule 4 mg PO Q8H PRN muscle spasticity 03/09/25 Unknown Rx #60 caps Allergy/AdvReac Type Severity Reaction Status Date / Time No Known Allergies Allergy Verified 03/16/25 17:42 Family History Grandmother Heart disease Hypothyroidism Mother Hypothyroidism Diabetes Congestive heart failure Father Cancer Lung Social History Smoking Status: Never smoker alcohol intake: current details: occasional substance use type: does not use caffeine: Yes Type: tea Number of servings: 1 ROS ROS ED Constitutional Constitutional ED: Denies chills, fever(s), subjective, sweats or weight loss Eyes Eyes: Denies blurry vision, change in vision or diplopia ENT ENT ED: Denies ear pain, rhinorrhea or sore throat Cardiovascular Cardiovascular: Reports palpitations; Denies chest pain, orthopnea, paroxysmal nocturnal dyspnea or racing heartbeat Respiratory/Chest Respiratory/Chest: Reports cough; Denies dyspnea, dyspnea on exertion, orthopnea, paroxysmal nocturnal dyspnea or sputum Gastrointestinal Gastrointestinal: Denies abdominal pain, melena, nausea or vomiting Musculoskeletal Musculoskeletal: Denies back pain Psychiatric Psychiatric: Reports anxiety; Denies depression Endocrine Endocrinology: Denies cold intolerance or heat intolerance Hematologic/Lymphatic Hematologic/Lymphatic: Reports systems reviewed and no addt'l complaints, except as documented EXAM Physical Exam Const Vital Signs: 03/16/25 17:42 03/16/25 18:15 03/16/25 18:17 Temperature 96.7 F L Temperature Source Temporal Pulse Rate 113 H Respiratory Rate 18 Respiratory Effort Normal Non-Labored Respiratory Pattern Normal Blood Pressure 146/87 H Blood Pressure Mean 106 Pulse Ox 99 96 Oxygen Delivery Method Room Air 03/16/25 18:30 Temperature Temperature Source Pulse Rate Respiratory Rate Respiratory Effort Respiratory Pattern Blood Pressure 149/84 H Blood Pressure Mean 103 Pulse Ox 97 Oxygen Delivery Method Positive well nourished and well developed Constitutional Narrative: Vital signs remarkable elevated blood pressure and heart rate. She is not tachypneic or hypoxic. General Appearance ED: well developed HEENT Reports moist mucous membranes HEENT Narrative: Head is atraumatic normocephalic. Ears normal. Nares patent. Eyes PERRL and EOMs intact bilaterally General Eye ED: Negative for pale conjunctiva or scleral icterus Neck no lymphadenopathy, supple and no JVD Chest Wall inspection of chest normal and palpation of chest normal Resp normal respiratory effort and clear to auscultation bilaterally Cardio regular rate, regular rhythm, S1 normal heart sound and S2 normal heart sound; Negative for no murmurs Rate: other Other Details: Patient has a known murmur. She has a grade 1/6 systolic crescendo-decrescendo murmur heard throughout the precordium GI normal to inspection, nondistended, normoactive bowel sounds, non-tender, non-distended and no masses; Negative for hepatosplenomegaly Palpation: soft Extremity normal to inspection Extremity Narrative: Insert lower extremity DVT Neuro oriented x3 and CN's II-XII intact bilaterally Sensorium / Orientation: alert Psych mental status grossly normal Skin no rashes or lesions noted, no wounds and skin turgor normal MDM MDM MDM Narrative Medical decision making narrative: Patient was concerned because EKG [place] the fire station that was abnormal. I reviewed the EKGs 1 revealed a sinus tachycardic with premature atrial beats. Another 1 that was performed was for quality and interpretation could not be made. The person is whether feels that there is something wrong. I informed him and patient that other than her heart rate being slightly fast there is no significant abnormality Prior to making informed the patient that we will obtain some blood work and EKG she made the comment "I would feel better if blood work was done". Obtain CBC to assess H&H. BMP to assess renal function and electrolytes and specifically potassium and calcium. Patient's not listed history of diabetes however she is on metformin. Lab Data Attestation: I reviewed the patient's lab results. Lab results narrative: CBC is unremarkable. Differential was not obtained since it is not needed. Basic metabolic panel is remarkable elevated glucose of 179. Patient is on metformin. Labs: Laboratory Results - last 24 hr 03/16/25 18:15 WBC 5.3 RBC 4.79 Hgb 14.8 Hct 43.8 MCV 91.4 MCH 30.9 MCHC 33.8 RDW Std Deviation 38.1 RDW Coeff of Claudio 11.2 L Plt Count 356 MPV 9.2 Sodium 139 Potassium 4.1 Chloride 101 Carbon Dioxide 24.7 Anion Gap 13 BUN 20 H Creatinine 0.90 Estim Creat Clear Calc 77.81 Est GFR (MDRD) Non-Af 76 BUN/Creatinine Ratio 22.4 H Glucose 179 H Calcium 9.0 EKG Initial EKG: Attestation: I personally reviewed and interpreted this EKG as follows: Interpretation: Sinus Rhythm (The EKG is normal. Rate is 86. PA interval 228 ms. QRS durations 84 ms. QT duration 3 and 48 ms. [place] is normal) Treatment and Re-Evaluation :: Patient was formed of results. She feels comfortable going home. Discharge Plan Triage Chief Complaint: General Illness ED Provider: Armando Ferris Dx/Rx/DC Orders Clinical Impression: Palpitations, Essential hypertension, Hypothyroidism, ADHD (attention deficit hyperactivity disorder), Pure hypercholesterolemia, Tachycardia Instructions: ED Heart Palpitations Prescriptions: No Action cholecalciferol (vitamin D3) 25 mcg (1,000 unit) tablet 25 mcg PO DAILY multivitamin Tablet 1 tab PO DAILY Co [id number] E-Fish Oil 25-150-200 mg-mg-unit capsule 1 cap PO DAILY ascorbic acid (vitamin C) 1,000 mg tablet 1 g PO DAILY Complex B-100 Tablet Extended Release 1 tab PO DAILY rosuvastatin 10 mg tablet 10 mg PO Q OTHER DAY lisinopril 5 mg tablet 7.5 mg PO DAILY cetirizine [Zyrtec] 10 mg tablet 10 mg PO DAILY magnesium glycinate 100 mg magnesium capsule PO DAILY levothyroxine 25 mcg tablet 25 mcg PO DAILY Patient Comments: TAKE 1 TABLET BY MOUTH EVERY DAY IN THE MORNING ON EMPTY STOMACH tizanidine 4 mg capsule 4 mg PO Q8H PRN (Reason: muscle spasticity) Qty: 60 0RF metformin 500 mg tablet extended release 24 hr 500 mg PO QPM Qty: 90 3RF Primary Care Provider: Zenaida Barksdale Referrals: Zenaida Barksdale DO [Primary Care Provider, Internal Medicine] - 1-2 Weeks Print Language: Occitan Disposition Disposition: Home, Self Care
[2025-03-16 18:17] VITALS: O2SAT 96
[2025-03-16 18:18] LABS: Hematocrit 43.8 % (37-47); Hemoglobin 14.8 g/dL (12.0-15.0); Mean Corp Hgb Conc 33.8 g/dL (32-36); Mean Corpuscular Volume 91.4 fL (81-99); Mean Platelet Vol. 9.2 fl (6.2-12.0); Platelet Count 356 K/mm3 (150-450); RBC Distribution Width CV 11.2 % (11.6-14.6); RBC Distribution Width SD 38.1 fl (35.1-43.9); Red Blood Count 4.79 M/mm3 (4.2-5.4); White Blood Count 5.3 K/mm3 (4.4-11.0)
--- OUTSIDE RECORDS SUMMARY | 2025-03-16 18:18 | XMS RPT_ITS | CCD ---
Author Organization [facility] Care Team Providers Care Credit Review Analyst Name Role Phone Zenaida Barksdale Unavailable Stone Torres Unavailable Gravius, Camelia Unavailable Unavailable Unavailable Unavailable MessengerTereza Unavailable Unavailable Zenaida Barksdale Unavailable Stone Torres Unavailable Messenger, Tereza Unavailable Unavailable Gravius, Camelia Unavailable Unavailable Long, Kelsy L Unavailable Unavailable Unavailable Unavailable Messenger Tereza Unavailable Unavailable Gravius, Camelia Unavailable Unavailable Keeley, Chantale Unavailable Unavailable Zenaida Barksdale DO Unavailable Stone Torres MD Unavailable Gravius CARBIDE TOOL DIE MAKER, Camelia Unavailable Unavailable Keeley CARTER, Chantale Unavailable Unavailable Unavailable Unavailable Stone Torres MD Primary Care Provider [phone] Zenaida Barksdale DO Unavailable Stone Torres MD Unavailable Dr. Zenaida Barksdale Primary Care Provider Dr. Hussein De León Attending Provider Maggie Cooney Unavailable Hussein De León MD Unavailable Yousif Greer LPN Unavailable Unavailable Dayna Couch Attending Provider Unavailable Dr. Zenaida Barksdale Referring Provider Dr. Zenaida Barksdale Primary Care Provider [phone] Dr. Hussein De León Attending Provider Dayna Couch Attending Provider Unavailable Dr. Zenaida Barksdale Referring Provider PROVIDER, UNKNOWN Attending Unavailable PROVIDER, UNKNOWN Admitting Unavailable MAGGIE COONEY Referring Unavailable Zay PYLE, Ana Unavailable Stone Torres MD Primary Care Provider Yue CARBIDE TOOL DIE MAKER, Kayela Unavailable Unavailable Zenaida Barksdale DO Attending Unavailable Stone Torres MD Referring Unavailable Zenaida Barksdale DO Consulting Unavailable Stone Torres MD Primary Care Provider Zenaida Barksdale DO Unavailable Maggie Cooney Unavailable Genet FANG, Hussein Forte Unavailable Stone Torres MD Unavailable Keeley AIRPLANE ELECTRICAL REPAIRER, Chantale Unavailable Unavailable Vipul AIRPLANE ELECTRICAL REPAIRER, PIERRE Unavailable Unavailable Zay PYLE, Ana Unavailable Cowley CARBIDE TOOL DIE MAKER, Kayela Unavailable Unavailable Gravius CARBIDE TOOL DIE MAKER, Camelia Unavailable Unavailable Unavailable Unavailable Stone Torres MD Primary Care Provider SULAIMAN WHYTE Referring Unavailable BONEZZI, STONE M Primary Care Unavailable Sulaiman Whyte MD Unavailable SULAIMAN WHYTE Attending Unavailable BONEZZI, STONE M Primary Care Unavailable DIPIKA, DANAE Referring Unavailable BONEZZI, STONE M Primary Care Unavailable DIPIKA, DANAE Attending Unavailable DIPIKA, DANAE Referring Unavailable BONEZZI, STONE M Primary Care Unavailable DIPIKA, DANAE Referring Unavailable BONEZZI, STONE M Primary Care Unavailable DIPIKA, DANAE Referring Unavailable BONEZZI, STONE M Primary Care Unavailable Jaya, Zenaida Primary Care Unavailable JayaZenaida dyson Referring Unavailable [place] CYANIDE FURNACE OPERATOR, Negrito Tabares Attending Unavailable Jaya Zenaida Primary Care Unavailable Zenaida Barksdale Referring Unavailable Dayna Colunga M Attending Unavail able Zenaida Barksdale Primary Care Unavailable Zenaida Barksdale Attending Unavailable Zenaida Barksdale Referring Unavailable Allergies Allergy Classification Reported Allergen(s) Allergy Type Date of Onset Reaction(s) Facility NEGATED: Highlighted row has been ruled out! (1 source) allergy to substance 6 [facility] Work Phone: NEGATED: Highlighted row has been ruled out! (1 source) drug allergy [facility] Work Phone: NEGATED: Highlighted row has been ruled out! (1 source) allergy to substance 6 [facility] Work Phone: NEGATED: Highlighted row has been ruled out! (1 source) drug allergy [facility] Work Phone: NEGATED: Highlighted row has been ruled out! (1 source) Allergy to substance (finding) 6 [facility]; [facility] Work Phone: NEGATED: Highlighted row has been ruled out! (1 source) Allergy to drug (finding) [facility]; [facility] Work Phone: NEGATED: Highlighted row has been ruled out! (1 source) Allergy to substance (finding) [facility]; [facility] Work Phone: NEGATED: Highlighted row has been ruled out! (1 source) Allergy to drug (finding) [facility]; [facility] Work Phone: NEGATED: Highlighted row has been ruled out! (1 source) Allergy to substance (finding) [facility]; [facility] Work Phone: NEGATED: Highlighted row has been ruled out! (1 source) Allergy to drug (finding) [facility]; [facility] Work Phone: Medications Current Medications Medication Drug Class(es) Dates Sig (Normalized) Sig (Original) amoxicillin 500 mg oral capsule (1 source) Penicillin-class Antibacterial Start: 06-29-2023 End: 07-09-2023 take 1 capsule by mouth twice daily amoxicillin (AMOXIL) 500 mg capsule Indications: Strep throat Take 1 capsule by mouth two times a day for 10 days. 20 capsule 0 06/29/2023 07/09/2023 Active Comment on above: Take 1 capsule by mo ut two times a day for 10 days. ascorbic acid 1000 mg oral tablet (20 sources) Vitamin C Start: 01-23-2022 take 1 g by mouth once daily Start: 01-23-2022 take 1 g by mouth once daily A scorbic Acid (Vitamin C) Active 1 GM PO DAILY January 22, 2022 11:00pm Start: 01-23-2022 take 1 g by mouth once daily A scorbic Acid (Vitamin C) Active 1 GM PO DAILY January 23, 2022 12:00am cholecalciferol 0.025 mg oral tablet (3 sources) Vitamin D Start: 01-29-2022 take 1 tablet by mouth once daily ergocalciferol, vitamin D2, (VITAMIN D2 ORAL) (20 sources) ergocalciferol, vitamin D2, (VITAMIN D2 ORAL) Take by mouth once daily. Active ergocalciferol, vitamin D2, (VITAMIN D2 ORAL) Take by mouth. Active ergocalciferol, vitamin D2, (VITAMIN D2 ORAL) Take by mouth. 0 Active Comment on above: Take by mouth. levothyroxine sodium 0.025 m g oral tablet (20 sources) l-Thyroxine Start: 05-16-2020 take 1 tablet by mouth once daily Start: 02-09-2020 take 1 tablet by stefanie once daily in the morning Levothyroxine Sodium 25 MCG Oral Tablet 1 (one) Tablet qam on empty stomach for 0 days Quantity: 30 {Tablet} Refills: 2 Ordered: 09-Feb-2020 Zenaida Barksdale DO, DO, Kathleen Start : 09-Feb-2020 Active Start: 11-13-2019 take 1 tablet by stefanie th once daily in the morning Levothyroxine Sodium 25 MCG Oral Tablet 1 (one) Tablet qam on empty stomach for 0 days Quantity: 30 {Tablet} Refills: 2 Ordered: 13-Nov-2019 Zenaida Barksdale DO, DO, Kathleen Start : 13-Nov-2019 Active Comment on above: TAKE 1 TABLET BY STEFANIE TH EVERY DAY IN THE MORNING ON EMPTY STOMACH lisinopril 5 mg oral tablet (20 sources) Angiotensin Converting Enzyme Inhibitor Start: 02-25-2024 take 7.5 mg by mouth once daily Start: 05-21-2023 End: 02-25-2024 take 3 tablets by mouth once daily Lisinopril 5 mg tablet Discontinued 15 mg PO DAILY May 21, 2023 9:32am February 25, 2024 9:34am Start: 02-08-2023 Start: 10-30-2022 End: 05-21-2023 take 2 tablets by mouth once daily Lisinopril 5 mg tablet Discontinued 10 mg PO DAILY October 30, 2022 8:44am May 21, 2023 9:32am Start: 09-02-2022 Start: 07-03-2022 take 1 tablet by stefanie th once daily lisinopriL 5 mg oral tablet 1 (one) Tablet qd for 0 days Quantity: 90 {Tablet} Refills: 3 Ordered: 03-Jul-2022 Zenaida Barksdale DO, DO, Kathleen Start : 03-Jul-2022 Active Comments: per dr. Vazquez bumped it up to 7.5 mg Start: 07-03-2022 take 1 tablet by stefanie th once daily lisinopriL 5 mg oral tablet 1 (one) Tablet qd for 0 days Quantity: 90 {Tablet} Refills: 3 Ordered: 03-Jul-2022 Zenaida Barksdale DO, DO, Kathleen Start : 03-Jul-2022 Active Comments: per dr. George emerymped it up to 7.5 mg Start: 05-01-2022 End: 10-30-2022 take 7.5 mg by mouth once daily Lisinopril 5 mg tablet Discontinued 7.5 mg PO DAILY 135 3 May 01, 2022 9:51am October 30, 2022 8:44am Start: 01-29-2022 End: 05-01-2022 take 1 tablet by mouth once daily Lisinopril 5 MG Oral Tablet 1 (one) Tablet qd for 0 days Quantity: 90 {Tablet} Refills: 3 Ordered: 09-Mar-2022 Zenaida Barksdale DO, DO, Kathleen Start : 09-Mar-2022 Active Comments: per dr. de león Start: 01-09-2022 End: 01-09-2022 take 1 tablet by mouth once daily Lisinopril 2.5 MG Oral Tablet 1 (one) Tablet qd for 0 days Quantity: 90 {Tablet} Refills: 3 Ordered: 23-Sep-202Zenaida Rivera DO, DO, Kathleen Start : 09-Jan-2022 End : 09-Jan-2022 Discontinued Start: 11-14-2021 take 1 tablet by stefanie th once daily Lisinopril 2.5 MG Oral Tablet 1 (one) Tablet qd for 0 days Quantity: 90 {Tablet} Refills: 3 Ordered: 14-Nov-2021 Zenaida Barksdale DO, DO, Kathleen Start : 14-Nov-2021 Active Start: 11-01-2020 take 1 tablet by stefanie th once daily Lisinopril 2.5 MG Oral Tablet 1 (one) Tablet qd for 0 days Quantity: 90 {Tablet} Refills: 3 Ordered: 01-Nov-2020 Zenaida Barksdale DO, DO, Kathleen Start : 01-Nov-2020 Active Start: 03-02-2019 End: 01-23-2022 take 5 mg by mouth once daily Lisinopril Discontinued 5 MG PO DAILY March 02, 2019 12:00am January 23, 2022 10:12am Start: 10-28-2018 take 0.5 tablet by [facility] once daily Lisinopril 10 MG Oral Tablet 1/2 Tablet qd for 0 days Quantity: 30 {Tablet} Refills: 3 Ordered: 28-Oct-2018 Zenaida Barksdale DO, DO, Kathleen Start : 28-Oct-2018 Active Start: 04-20-2017 End: 01-23-2022 take 5 mg by mouth once daily Lisinopril 10 MG tablet Discontinued 5 mg PO DAILY March 02, 2019 1:00am January 23, 2022 11:12am Start: 04-20-2017 take 7.5 mg by mouth once radha y lisinopril (ZESTRIL, PRINIVIL) 10 mg tablet Take 7.5 mg by mouth once daily. 2 04/20/2017 Active Start: 04-20-2017 take 1 tablet by stefanie th once daily, then take 5 mg by mouth once daily lisinopril (ZESTRIL, PRINIVIL) 10 mg tablet Take 10 mg by mouth once daily. 5 mg daily 2 04/20/2017 Active Start: 04-20-2017 take 1 tablet by stefanie th twice daily Lisinopril 10 MG Oral Tablet 1 (one) Tablet bid for 0 days Quantity: 60 {Tablet} Refills: 2 Ordered: 18-Nov-2017 Zenaida Barksdale DO Jaya Zenaida MCKEE Start : 18-Nov-2017 Active Comment on above: Take 10 mg by mouth twice daily. Take 10 mg by mouth once daily. [address]. de león per dr. de leónPt bumped it up to 7.5 mg Take 5 mg by mouth o nce daily. 5 mg daily 24 hr metFORMIN hydrochloride 500 mg extended release oral tablet (5 sources) Biguanide Start: 09-14-19 25 take 1 tablet by mouth once daily at bedtime metFORMIN ER (GLUCOPHAGE XR) 500 mg 24 hr tablet Take 500 mg by mouth daily at bedtime. 09/13/2024 Active Multivitamin preparation (20 sources) Start: 01-24-20 22 take 1 tablet by mouth once daily Multivitamin Active 1 TABLET PO DAILY January 22, 2022 11:00pm Start: 01-23-2022 take 1 tablet by stefanie th once daily Multivitamin Active 1 TABLET PO DAILY January 23, 2022 12:00am MULTIVITAMIN (MU LTIPLE VITAMIN ORAL) Take by mouth. Active MULTIVITAMIN (MU LTIPLE VITAMIN ORAL) Take by mouth. 0 Active Comment on above: Take by mouth. Multivitamin tablet (1 source) Start: 01-23-2022 perflutren lipid microspheres 1.3 mL in NaCl (PF) 0.9% 10 mL injection (DEFINITY) (16 sources) Start: 11-20-2022 End: 02-19-2024 perflutren lipid microspheres 1.3 mL in NaCl (PF) 0.9% 10 mL injection (DEFINITY) Start: 05-15-2022 End: 08-14-2023 perflutren lipid microsphere s 1.3 mL in NaCl (PF) 0.9% 10 mL injection (DEFINITY) 125 ml sodium chloride 9 mg/ ml prefilled syringe (9 sources) Start: 05-15-2022 End: 02-19-2024 sodium chloride 0.9 % (flush ) 10 mL (BD POSIFLUSH) Ubidecarenone-[place] 3-Vit E (Co I-31-Ytfurre E-Fish Oil) 25-150-200 mg-mg-unit capsule (4 sources) Start: 01-23-2022 Start: 01-23-2022 take 1 capsule by mo uth once daily Ubidecarenone-[place] 3-Vit E (Co G-16-Gyzohjy E-Fish Oil) 25-150-200 mg-mg-unit capsule Active 1 CAP PO DAILY January 22, 2022 11:00pm Start: 01-23-2022 take 1 capsule by mo uth once daily Ubidecarenone-[place] 3-Vit E (Co O-86-Dloyiva E-Fish Oil) 25-150-200 mg-mg-unit capsule Active 1 CAP PO DAILY January 23, 2022 12:00am Vitamin B Complex (Complex B -100) tablet extended release (5 sources) Start: 05-01-2022 Start: 01-23-2022 End: 05-01-2022 Vitamin B Complex (Complex B -100) tablet extended release Discontinued 1 {tbl} PO every other day January 23, 2022 12:00am May 01, 2022 9:28am Start: 01-23-2022 take 1 tablet by stefanie every other day Vitamin B Complex (Complex B-100) tablet extended release Active 1 TABLET PO every other day January 22, 2022 11:00pm Start: 01-23-2022 take 1 tablet by stefanie th every other day Vitamin B Complex (Complex B-100) tablet extended release Active 1 TABLET PO every other day January 23, 2022 12:00am Completed/Discontinued Medications Medication Drug Class(es) Dates Sig (Normalized) Sig (Original) amoxicillin 875 mg / clavulanate 125 mg oral tablet (20 sources) Penicillin-class Antibacterial Start: 05-06-2007 End: 11-03-2007 Start: 05-06-2007 End: 11-03-2007 take 1 tablet by mouth twice daily AUGMENTIN, 875-125MG (Oral Tablet) 1 (one) Tablet Twice daily for 0 days Quantity: 28 {Tablet} Refills: 0 Ordered: 06-May-2007 PIERRE Matthew LPN Start : 06-May-2007 End : 03-Nov-2007 Discontinued B Complex Oral Capsule (20 sources) B Complex Oral Capsule Active 24 hr buPROPion hydrochloride 150 mg extended release oral tablet (20 sources) Aminoketone Start: 09-13-2008 End: 01-07-2009 busPIRone hydrochloride 15 mg oral tablet (20 sources) Start: 01-21-2010 End: 02-10-2010 Comment on above: This order discontin ued per [facility]. cetirizine hydrochloride 10 mg oral tablet (14 sources) Histamine-1 Receptor Antagonist Start: 11-17-2022 End: 01-08-2023 Start: 11-13-2022 take 1 tablet by stefanie th once daily cetirizine 10 mg oral tablet 1 Tablet daily;allergy symptoms for 0 days Quantity: 30 {Tablet} Refills: 3 Ordered: 13-Nov-2022 Zenaida Barksdale DO, DO, Kathleen Start : 13-Nov-2022 Active Start: 10-30-2022 take 1 tablet by stefanie th once daily as needed citalopram 20 mg oral tablet (20 sources) Serotonin Reuptake Inhibitor Start: 10-03-2009 Comment on above: extreme fatigue clotrimazole 10 mg oral loze nge (6 sources) Azole Antifungal Start: 09-02-2022 End: 01-08-2023 Start: 09-02-2022 clotrimazole 1 0 mg mucous membrane Chuyita 1 Tablet 3 times per day for 0 days Quantity: 60 {Tablet} Refills: 1 Ordered: 02-Sep-2022 Ana Collazo CNP Start : 02-Sep-2022 Active dilTIAZem hydrochloride 30 m g oral tablet (15 sources) Calcium Channel Niko Start: 01-09-2022 End: 01-09-2022 PATRICIA 28, 3-0.03MG (Oral Ta blet) (20 sources) Progestin, Estrogen take 1 tablet by mouth once radha y PATRICIA 28, 3-0.03MG (Oral Tablet) 1 QD for 0 days Refills: 0 Ordered: 07-Jan-2010 PIERRE Matthew LPN Inactive take 1 tablet by mouth once radha y PATRICIA 28, 3-0.03MG (Oral Tablet) 1 QD for 0 days Refills: 0 Ordered: 07-Jan-2010 PIERRE Matthew Inactive DULoxetine 30 mg delayed release oral capsule (20 sources) Serotonin and Norepinephrine Reuptake Inhibitor Start: 11-09-2012 End: 11-09-2012 Start: 11-09-2012 End: 11-09-2012 CYMBALTA, 30MG (Oral Capsule Delayed Release Particles) [address] Part daily for 0 days Quantity: 30 {Capsule_DR_Part} Refills: 6 Ordered: 09-Nov-2012 Melissa FANG, Stone Liang Start : 09-Nov-2012 End : 09-Nov-2012 Discontinued escitalopram 10 mg oral tablet (20 sources) Serotonin Reuptake Inhibitor Start: 01-03-2013 End: 08-18-2013 esomeprazole 40 mg delayed release oral capsule (20 sources) Proton Pump Inhibitor Start: 11-29-2008 End: 01-07-2009 Ethinyl Estradiol / Ferrous fumarate / Norethindrone (20 sources) Estrogen Start: 07-14-2021 End: 09-25-2022 take 1 tablet by mouth once daily , 1 mg-20 mcg (21)/75 mg (7) per tablet TAKE 1 TABLET BY MOUTH EVERY DAY 84 tablet 3 07/14/2021 09/25/2022 Discontinued Start: 07-14-2021 take 1 tablet by stefanie th once daily , 1 mg-20 mcg (21)/75 mg (7) per tablet TAKE 1 TABLET BY MOUTH EVERY DAY 84 tablet 3 07/14/2021 Active Start: 07-23-2020 End: 07-14-2021 take 1 tablet by mouth once daily, then take 0.05 tablet by mouth once Norethin José-Eth Estrad-FE (,) 1 mg-20 mcg (21)/75 mg (7) per tablet Take 1 tablet by mouth once daily. 84 tablet 3 07/23/2020 07/14/2021 Discontinued Start: 03-02-2019 End: 01-23-2022 Norethindrone-E.Estradiol-Ir on 1 EACH tablet Discontinued 1 {tbl} PO DAILY March 02, 2019 1:00am January 23, 2022 11:13am Start: 03-02-2019 End: 01-23-2022 take 1 tablet by mouth once daily Norethindrone-E.Estradiol-Iron Discontinued 1 TABLET PO DAILY March 02, 2019 12:00am January 23, 2022 10:13am Start: 03-02-2019 End: 01-23-2022 take 1 tablet by mouth once daily Norethindrone-E.Estradiol-Iron Discontinued 1 TABLET PO DAILY March 02, 2019 1:00am January 23, 2022 11:13am Start: 03-02-2019 take 1 tablet by stefanie once daily Norethindrone-E.Estradiol-Iron Active 1 TABLET PO DAILY March 02, 2019 1:00am take 1 tablet by stefanie th once daily 05/08 1-20 MG-MCG Oral Tablet 1 qd (1-20 MG-MCG) Inactive take 1 tablet by stefanie th once daily 05/08 1-20 MG-MCG Oral Tablet 1 qd (1-20 MG-MCG) Active Comment on above: TAKE 1 TABLET BY STEFANIE TH EVERY DAY Take 1 tablet by stefanie th once daily. GILDESS 1.5/30, 1.5-30MG-MCG (Oral Tablet) (20 sources) Estrogen take 1 tablet by mouth once radha y GILDESS 1.5/30, 1.5-30MG-MCG (Oral Tablet) 1 qd as directed (1.5-30 MG-MCG) Inactive SPRINTEC 28, 0.25-35MG-MCG ( Oral Tablet) (20 sources) Progestin, Estrogen End: 05-06-2007 End: 05-06-2007 take 1 tablet by mouth once daily SPRINTEC 28, 0.25-35MG-MCG (Oral Tablet) 1 tab qd for 0 days Refills: 0 Ordered: 06-May-2007 End : 06-May-2007 Discontinued End: 05-06-2007 take 1 tablet by mouth once daily SPRINTEC 28, 0.25-35MG-MCG (Oral Tablet) 1 tab qd for 0 days Refills: 0 Ordered: 06-May-2007 Agnieszka Kyae RN End : 06-May-2007 Discontinued 12 hr fexofenadine hydrochloride 60 mg / pseudoephedrine hydrochloride 120 mg extended release oral tablet (20 sources) alpha-Adrenergic Agonist, Histamine-1 Receptor Antagonist Start: 05-06-2007 End: 11-03-2007 Start: 05-06-2007 End: 11-03-2007 take 60-120 mg by mouth twice daily MARCOS-D 12 HOUR, 60-120MG (Oral Tablet Extended Release 12 Hour) 1 (one) Tablet ER 12HR Twice daily for 0 days Quantity: 20 {Tablet_ER_12HR} Refills: 0 Ordered: 06-May-2007 PIERRE Matthew LPN Start : 06-May-2007 End : 03-Nov-2007 Discontinued Start: 05-06-2007 End: 11-03-2007 take 1 tablet by mouth every twelve hours MARCOS-D 12 HOUR, 60-120MG (Oral Tablet Extended Release 12 Hour) 1 (one) Tablet ER 12HR Twice daily for 0 days Quantity: 20 {Tablet_ER_12HR} Refills: 0 Ordered: 06-May-2007 PIERRE Matthew Start : 06-May-2007 End : 03-Nov-2007 Discontinued fish oil/borage/flax/om3,6,9 1 (FISH,BORA,FLAX OILS-OM3,6,9NO1 ORAL) (9 sources) End: 09-28-2024 fish oil/borage/flax/om3,6,9 1 (FISH,BORA,FLAX OILS-OM3,6,9NO1 ORAL) Take 1 mg by mouth. 09/28/2024 Discontinued fish oil/borage/ flax/om3,6,9 1 (FISH,BORA,FLAX OILS-OM3,6,9NO1 ORAL) Take 1 mg by mouth. Active fish oil/borage/ flax/om3,6,9 1 (FISH,BORA,FLAX OILS-OM3,6,9NO1 ORAL) Take 1 mg by mouth. 0 Active Comment on above: Take 1 mg by mouth. Fish Oils (20 sources) Fish Oil 300 MG Oral Capsule (300 MG) Active fluticasone furoate 0.0275 m g/actuat metered dose nasal spray (20 sources) Corticosteroid Start: 05-06-2007 End: 11-03-2007 Start: 05-06-2007 End: 11-03-2007 VERAMYST, 27.5MCG/SPRAY (Joe al Suspension) qd Suspension qd for 0 days Refills: 0 Ordered: 06-May-2007 PIERRE Matthew LPN Start : 06-May-2007 End : 03-Nov-2007 Discontinued GILDESS 1.5/30, 1.5-30MG-MCG (Oral Tablet) (2 sources) take 1 tablet by mouth once daily GILDESS 1.5/30, 1.5-30MG-MCG (Oral Tablet) 1 qd as directed (1.5-30 MG-MCG) Inactive Multi Vitamin Oral Tablet (20 sources) Multi Vitamin Or al Tablet Active multivit with min-folic acid (3 sources) 24 hr NIFEdipine 30 mg extended release oral tablet (19 sources) Dihydropyridine Calcium Channel Niko Start: 01-24-20 End: 07-04-19 Start: 01-09-2022 take 1 tablet by stefanie th once daily NIFEdipine ER 30 MG Oral Tablet Extended Release 24 Hour 1 (one) Tablet qd for 0 days Quantity: 30 {Tablet} Refills: 2 Ordered: 09-Jan-2022 Zenaida Barksdale DO, DO, Kathleen Start : 09-Jan-2022 Active Comments: cancel out the plain cardizem rx sent today Comment on above: cancel out the plain cardizem rx sent today omeprazole 20 mg delayed release oral capsule (20 sources) Proton Pump Inhibitor Start: 11-05-2008 End: 11-29-2008 oseltamivir 75 mg oral capsu le (9 sources) Neuraminidase Inhibitor Start: 03-27-2022 End: 04-01-2022 predniSONE 10 mg oral tablet (20 sources) Start: 02-24-2011 End: 03-03-2011 Start: 02-24-2011 End: 03-03-2011 take 3 tablets by mouth once daily PREDNISONE, 10MG (Oral Tablet) 3 (three) Tablet daily for 7 days Quantity: 21 {Tablet} Refills: 0 Ordered: 24-Feb-2011 AnaGloria lozada Start : 24-Feb-2011 End : 03-Mar-2011 Inactive rosuvastatin calcium 10 mg oral tablet (20 sources) HMG-CoA Reductase Inhibitor Start: 05-26-2019 End: 02-25-2024 take 1 tablet by mouth every other day Rosuvastatin 10 mg tablet Discontinued 10 mg PO .QOD May 01, 2022 9:27am February 25, 2024 9:34am Start: 05-26-2019 take 1 tablet by stefanie th once daily at bedtime rosuvastatin (CRESTOR) 10 mg tablet TAKE 1 TABLET BY MOUTH EVERYDAY AT BEDTIME 05/26/2019 Active Comment on above: TAKE 1 TABLET BY STEFANIE TH EVERYDAY AT BEDTIME SPRINTEC 28, 0.25-35MG-MCG (Oral Tablet) (2 sources) End: take 1 tablet by mouth once daily SPRINTEC 28, 0.25-35MG-MCG (Oral Tablet) 1 tab qd for 0 days Refills: 0 Ordered: 06-May-2007 Mast Agnieszka CARDENAS End : 06-May-2007 Discontinued traZODone hydrochloride 100 mg oral tablet (20 sources) Serotonin Reuptake Inhibitor Start: 3 End: 4 Start: 11-09-2012 End: 08-18-2013 take 0.5 tablet by mouth once daily for sleep TRAZODONE HCL, 100MG (Oral Tablet) 1/2 Tablet nightly for sleep for 0 days Quantity: 30 {Tablet} Refills: 6 Ordered: 18-Aug-2013 PIERRE Matthew LPN Start : 09-Nov-2012 End : 18-Aug-2013 Inactive Vitamin B Complex (6 sources) Vitamin B Complex Oral Capsu le (20 sources) Vitamin B Comple x Oral Capsule every other day Inactive Vitamin B Comple x Oral Capsule every other day Active NEGATED: Highlighted row has not occurred!drug or medication (17 sources) No Known Histori mariann Medications NEGATED: Highlighted row has not occurred!No Known Historical Medications (5 sources) No Known Histori mariann Medications Problems Active Problems Problem Classification Problem Date Documented Date Episodic/Chronic Abdominal pain (20 sources) Abdominal pain, unspecified site; Translations: [Generalized abdominal pain] Resolved: 3 03-06-2015 Episodic Administrative/social admission (20 sources) Counseling procedure with explicit context; Translations: [Patient encounter status] Resolved: 6 02-18-2018 Episodic Comment on above: reveiwed with patien t family history. will call over to Dr. jaclyn vizcarra to see when last tetanus. lipids. due 05-03 for pap and mammo will get done. Allergic reactions (20 sources) Contact dermatitis due to poison vern; Translations: [Contact dermatitis due to poison vern] Resolved: 3 03-05-2015 Episodic Anxiety disorders (20 sources) Anxiety; Translations: [Anxiety] Onset: 1 02-18-2018 Chronic Comment on above: stable Attention-deficit, conduct, and disruptive behavior disorders (20 sources) Attention deficit hyperactivity disorder; Translations: [Attention-deficit hyperactivity disorder, unspecified type] Onset: 3 02-18-2018 Chronic Comment on above: Saw Katey rao few yrs ago, managing without medications.Work at [employer] parttime. Cardiac dysrhythmias (20 sources) Ventricular premature beats; Translations: [Beat, premature ventricular] 02-18-2018 Chronic Comment on above: occasional assoc wit h fluttering. Cardiac dysrhythmias (20 sources) Palpitations; Translations: [Palpitations] Onset: 5 Resolved: 4 02-22-2014 Episodic Comment on above: better than was on l exapro Chronic obstructive pulmonary disease and bronchiectasis (20 sources) Bronchitis; Translations: [Bronchitis] Resolved: 9 01-22-2015 Episodic Chronic obstructive pulmonary disease and bronchiectasis (17 sources) Chronic obstructive pulmonary disease and bronchiectasis Coronary atherosclerosis and other heart disease (20 sources) Coronary atherosclerosis and other heart disease Diabetes mellitus without complication (20 sources) Impaired fasting glucose; Translations: [Impaired fasting glycaemia] 02-18-2018 Episodic Disorders of lipid metabolism (20 sources) Hyperlipidemia; Translations: [Hypercholesterolemia] Onset: 1 09-01-2019 Chronic Comment on above: discussed statin -- but not monitoring nmr in near future bc ins not covering - so woulld pay for response then not bc of sefl pay $ - wouild only ck reg lipid panel try qod Disorders of teeth and jaw (20 sources) Temporomandibular joint disorder; Translations: [Temporomandibular joint disease] Resolved: 4 05-30-2015 Episodic Essential hypertension (20 sources) Benign hypertension; Translations: [Hypertensive disorder] Onset: 1 02-18-2018 Chronic Comment on above: pt has tried going o ff med in past and it goes up needs to be consiste nt with checking BPs and make appt with kf to address any issues. Genitourinary symptoms and ill-defined conditions (20 sources) Abnormal urine odor; Translations: [Foul smelling urine] Resolved: 7 03-25-2017 Episodic Comment on above: Foul smelling urine in AM X 1 month.No burning, yellowish, no vaginal discharge, no vaginal itching.No blooddrink lots of water 90 ounces/day, thirsty all the time, frequency, Heart valve disorders (20 sources) Tricuspid valve regurgitation; Translations: [Tricuspid insufficiency] Onset: 2 01-09-2022 Chronic Comment on above: mild-mod per ECHO Immunizations and screening for infectious disease (20 sources) Need for prophylactic vaccination and inoculation against influenza; Translations: [Needs influenza immunization] 01-10-2020 Episodic Comment on above: treat w/tamiflu for household influenza A contact Malaise and fatigue (20 sources) Fatigue; Translations: [Fatigue] Resolved: 9 02-18-2018 Episodic Comment on above: sleep study good, so me insomnia--sibilia talk about ways to help. talk about relaxation breathing stress and restless sleephelp with trazadone Menstrual disorders (20 sources) Amenorrhea; Translations: [Amenorrhea] Resolved: 4 03-08-2015 Chronic Nausea and vomiting (20 sources) Nausea; Translations: [Nausea] Resolved: 9 03-05-2015 Episodic Other and unspecified benign neoplasm (20 sources) Hemangioma; Translations: [Hemangioma, multiple] 07-10-2021 Episodic Other connective tissue disease (20 sources) Myalgia; Translations: [Muscle pain] Episodic Other connective tissue disease (20 sources) Muscle pain; Translations: [Myalgia and myositis] Resolved: 9 02-18-2018 Episodic Comment on above: fibromyalgia and thi nk has. was getting massotherapy. seeing juan carlos. needs to start exercise program. clean eating.body can be sore for no apparent reason.Tension headaches Other inflammatory condition of skin (20 sources) Pruritus ani; Translations: [Pruritus ani] Resolved: 3 12-05-2012 Episodic Other lower respiratory disease (20 sources) Wheezing; Translations: [Wheezing] Resolved: 9 10-27-2012 Episodic Other lower respiratory disease (20 sources) Dyspnea; Translations: [Dyspnea on exertion] Episodic Other nutritional; endocrine; and metabolic disorders (20 sources) Overweight; Translations: [Over weight] Resolved: 9 02-18-2018 Chronic Comment on above: doing 30 day challen ges and weight watchers points. lost over 10 pounds goal 135. belly button meaurem ent 33" Other nutritional; endocrine; and metabolic disorders (20 sources) Body mass index 30+ - obesity; Translations: [BMI 30.0-30.9,adult] Resolved: 0 02-18-2018 Chronic Other nutritional; endocrine; and metabolic disorders (20 sources) Body mass index 25-29 - overweight; Translations: [BMI 26.0-26.9,adult] Resolved: 0 02-18-2018 Chronic Other nutritional; endocrine; and metabolic disorders (20 sources) Body mass index 25-29 - overweight; Translations: [BMI 27.0-27.9,adult] Resolved: 2 04-10-2020 Episodic Other nutritional; endocrine; and metabolic disorders (20 sources) Overweight; Translations: [Over weight] Resolved: 9 04-29-2018 Episodic Comment on above: gerson peralta ent 33" Other nutritional; endocrine; and metabolic disorders (20 sources) Overweight in adulthood with body mass index of 25 or more but less than 30; Translations: [BMI 27.0-27.9,adult] Resolved: 3 07-09-2021 Episodic Other upper respiratory disease (20 sources) Allergic rhinitis; Translations: [Allergic rhinitis] Resolved: 9 10-27-2012 Chronic Comment on above: see Dr. wright saw Dr. wright in [facility], nothing recent. hx allergy shots Other upper respiratory infections (20 sources) Streptococcal pharyngitis; Translations: [Acute sinusitis, unspecified] Resolved: 9 05-30-2015 Episodic Pulmonary heart disease (20 sources) Pulmonary hypertension; Translations: [Pulmonary hypertension] Onset: 2 01-09-2022 Chronic Comment on above: being followed - thi nking false read on the echo bc 5-other studies were normal and seeing pulm -- getting repeat echo at different facility at 6mo RVSP 51 mmHG per [facility] O 01/06/22 Residual codes; unclassified (20 sources) Current non-smoker ; Translations: [Current nonsmoker (Renamed from Current non-smoker)] 02-18-2018 Episodic Residual codes; unclassified (20 sources) Non-smoker; Translations: [Non-smoker] 04-10-2020 Episodic Residual codes; unclassified (20 sources) Body mass index 20-24 - normal; Translations: [BMI 23.0-23.9, adult] Resolved: 2 11-01-2020 Episodic Spondylosis; intervertebral disc disorders; other back problems (20 sources) Neck pain; Translations: [Pain in the coccyx] Resolved: 4 02-18-2018 Episodic Comment on above: xray good to PT laya use continue and now into back. doing better with PT so will follow. see chiropactor. doi ng well. see PT is helping. think fibro. Thyroid disorders (20 sources) Hypothyroidism; Translations: [Adult hypothyroidism] Onset: 1 09-01-2019 Chronic Comment on above: new dx 08/2019 Unclassified (20 sources) Abnormal cervical Papanicolaou smear; Translations: [Thyroid hormone tests abnormal] Onset: 5 Resolved: 9 03-25-2017 Episodic Comment on above: see care giver and having c olpscopy doing yearly paps. last HPV negaitve ASCUS cologuard study Unclassified (20 sources) Needs influenza immunization; Translations: [Need for prophylactic vaccination and inoculation against influenza (Renamed from Need for immunization against influenza)] 02-18-2018 Episodic Unclassified (20 sources) Coccydynia Unclassified (20 sources) Unclassified (20 sources) Current non-smoker ; Translations: [Current nonsmoker (Renamed from Current non-smoker)] 02-18-2018 Unclassified (20 sources) Beat, premature ventricular (427.69) Unclassified (20 sources) BMI 30.0-30.9,adult Unclassified (20 sources) Temporomandibular joint disease (524.60) Unclassified (20 sources) Hypertension, benign Unclassified (20 sources) Nutritional counseling Unclassified (20 sources) ADD - Adult/Child (314.00) Unclassified (20 sources) Abnormal Pap smear (795.00) Unclassified (20 sources) Patient encounter status; Translations: [Encounter for screening for lipid disorder] Resolved: 9 02-18-2018 Comment on above: reveiwed with purvi t family history. will call over to Dr. jaclyn vizcarra to see when last tetanus. lipids. due 05-03 for pap and mammo will get done. cologuard study Unclassified (20 sources) Foul smelling urine Unclassified (20 sources) Myalgia and myositis Unclassified (20 sources) Beat, premature ventricular Unclassified (20 sources) Abnormal Pap smear of cervix Unclassified (20 sources) BMI 26.0-26.9,adult Unclassified (20 sources) Abdominal Pain,General (789.07) Unclassified (20 sources) Non-smoker Unclassified (18 sources) BMI 29.0-29.9,adult Unclassified (13 sources) Abnormal TSH Unclassified (20 sources) Adult hypothyroidism Unclassified (8 sources) BMI 27.0-27.9,adult Unclassified (11 sources) Hypercholesteremia Unclassified (5 sources) BRONCHITIS, NOT SPECIFIED ACUTE OR CHRONIC (490.) Unclassified (3 sources) BMI 23.0-23.9, adult Past or Other Problems Problem Classification Problem Date Documented Date Episodic/Chronic Bacterial infection; unspecified site (13 sources) Streptococcal sore throat with scarlatina; Translations: [Strep throat/scarlet fever] Resolved: 09-25-2008 05-30-2015 Episodic Diabetes mellitus without complication (20 sources) Diabetes mellitus without complication Heart valve disorders (20 sources) Heart murmur; Translations: [Heart murmur] Onset: 07-23-2020 02-18-2018 Episodic Comment on above: echo in past echo in past/asx Other lower respiratory disease (20 sources) Dyspnea on exertion; Translations: [SOB (shortness of breath) on exertion] Resolved: 09-25-2008 03-01-2015 Episodic Comment on above: ? stress Residual codes; unclassified (5 sources) Increased body mass index; Translations: [BMI 29.0-29.9,adult] 10-28-2018 Episodic Residual codes; unclassified (19 sources) Abnormal cytology findings; Translations: [Low grade squamous intraepithelial dysplasia] Onset: 07-10-2014 Resolved: 09-25-2022 07-10-2014 Episodic Sexually transmitted infections (not HIV or hepatitis) (19 sources) Human papillomavirus deoxyribonucleic acid test positive, high risk on cervical specimen; Translations: [Cervical high risk human papillomavirus (HPV) DNA test positive] Onset: 05-25-2011 Resolved: 09-25-2022 05-25-2011 Episodic Unclassified (20 sources) Deliveries (Parity); Translations: [Deliveries (Parity)] 02-18-2018 Comment on above: 1 Unclassified (20 sources) Low Back Pain (Renamed from LBP (low back pain)) Unclassified (19 sources) Non-smoker; Translations: [Non-smoker] 02-18-2018 Unclassified (20 sources) Physical exam, routine Unclassified (20 sources) Abortions/Miscarriages ; Translations: [Abortions/Miscarriage s] 02-18-2018 Comment on above: 3 Unclassified (20 sources) Physical exam, routine (V70.0) Unclassified (20 sources) Pregnancies (); Translations: [Pregnancies ()] 02-18-2018 Comment on above: 4 Unclassified (20 sources) CONTACT DERMATITIS D/T POISON VERN, (692.6) Unclassified (20 sources) Abdominal Pain,Unspecified Site (789.00) Unclassified (20 sources) Physical exam Unclassified (17 sources) Screening status; Translations: [Screening for diabetes mellitus] Resolved: 04-29-2018 02-18-2018 Unclassified (20 sources) Work Physical (V70.5) Unclassified (20 sources) Strep throat (034.0) Unclassified (20 sources) Encounter for screening for lipid disorder Unclassified (19 sources) Screen for colon cancer Unclassified (17 sources) Abortions/Miscarriages ; Translations: [Abortions/Miscarriage s] 04-10-2020 Comment on above: 3 Unclassified (17 sources) Deliveries (Parity); Translations: [Deliveries (Parity)] 04-10-2020 Comment on above: 1 Unclassified (17 sources) Pregnancies (); Translations: [Pregnancies ()] 04-10-2020 Comment on above: 4 Unclassified (1 source) Hemangioma, multiple Results Test Name Value Interpretation Reference Range Facility Cardiology Visit Reporton Cardiology Visit Report [facility] [address] [place], [place] [address] OFFICE VISIT Date of Service: 02/23/25 MR#: [id number] Acct: [id number] Name: JAZZ PETTY Rep #: [id number] : 1970 Provider: MICK Coronel Age/Sex: 54/F Location: [facility] [place] Status: Signed HPI HPI History of Present Illness Details: This is a 54-year-old female with a history of pulmonary hypertension, hypertension and palpitations. Her most recent echocardiogram in 2022 demonstrated an ejection fraction of 65% with an RVSP of 52 mmHg with stage I diastolic dysfunction. She does see Dr. Whyte and Eros for her pulmonary HTN. From a cardiac standpoint, patient is doing well. She does not have any chest discomfort/heaviness/t ightness. Her exercise tolerance is stable for her age. She does not have any worsening symptoms of shortness of breath. She does not have any orthopnea. She denies PND. She does not have any symptoms of congestive heart failure. She does sometimes have palpitations after she takes her muscle relaxers. She does not have any lightheadedness or dizziness. She does not have any near-syncope or syncope. She does not have any lower extremity edema. She does not have any symptoms of claudication. Intake Vital Signs 02/25/24 08:30 02/23/25 08:29 Height 5 ft 5 in 5 ft 5 in Weight: 180 lb 185 lb BMI 29.9 30.7 BP 124/83 H 118/83 H Blood Pressure Location Lt brachial Lt brachial Position Sitting Sitting Respiration 16 18 Pulse 86 82 Pulse Source NIBP Monitor Pulse Oximetry (%) 98 Oxygen Delivery Method room air Intake Visit Reasons: 1 Y [employer] Director Required: No Accompanied by: Self Is patient in pain?: No Allergies No Known Allergies Allergy (Verified 02/23/25 08:50) Medications ???Medication ???Instructions ???Recorded ???Confirmed ???Type levothyroxine 25 mcg tablet 25 mcg PO DAILY 12/07/21 02/23/25 History ascorbic acid (vitamin C) 1,000 mg 1 g PO DAILY 01/23/22 02/23/25 H istory tablet multivitamin 1 tab PO DAILY 01/23/22 02/23/25 H istory ubidecarenone-omega 3-vit E 25 1 cap PO DAILY 01/23/22 02/23/25 H istory mg-150 (90-60) mg-200 unit capsule (Co E-95-Deqyoph E-Fish Oil) cholecalciferol (vitamin D3) 25 25 mcg PO DAILY 01/29/22 02/23/25 History mcg (1,000 unit) tablet vitamin B complex (Complex B-100 1 tab PO DAILY 05/01/22 02/23/25 H istory tablet,extended release) lisinopril 5 mg tablet 7.5 mg PO DAILY 02/25/24 02/23/25 History rosuvastatin 10 mg tablet 10 mg PO Q OTHER DAY 02/25/2411/10 History cetirizine 10 mg tablet (Zyrtec) 10 mg PO DAILY 02/23/25 02/23/25 H istory magnesium glycinate mg PO DAILY 02/23/25 02/23/25 Hist ory metformin 500 mg tablet,extended 500 mg PO QPM 02/23/25 02/23/25 Hi story release 24 hr Ejection fraction %: 65 Have you fallen in the past year?: No Nurse's Note: Took a muscle relaxer, and she can feel palps when she takes it. Pt's mom here in December. She is feeling "triggered" by being here today for the first time since her passing. EKG done in office today. Last one on file was from 01/29/22. [facility] Medical History Palpitations Pure hypercholesterolemia ADHD (attention deficit hyperactivity disorder) Hypothyroidism Pulmonary hypertension Essential hypertension Non-rheumatic tricuspid valve insufficiency Hypertension Family History Grandmother Heart disease Hypothyroidism Mother Hypothyroidism Diabetes Congestive heart failure Father Cancer Lung Social History Smoking Status: Never smoker alcohol intake: current details: occasional substance use type: does not use caffeine: Yes Type: tea Number of servings: 1 ROS Const Const: Negative for fatigue, weakness or headache(s) Eyes Eyes: Negative for change in vision ENT ENT: Negative for headache(s), dizziness, Nosebleed/epistaxis or balance problems Cardio Chest Pain: No Palpitations: Yes (When she takes her muscle relaxer ) feels like its: other Edema: None Resp Respiratory: Negative for SOB with activity GI GI: Negative nausea, vomiting, heartburn or bright, red blood in stools : Negative for hematuria Musc Musc: Negative for balance problems Neuro Neuro: Negative for dizziness, lightheadedness, syncope, headache(s) or weakness Endo Endo: Negative for fatigue Cardiology Exam Const Appearance: cooperative, healthy appearing, comfortable, no acute distress and well developed Nutritional Appearance: average body habitus and overweight Orientation: alert, awake and oriented x3 Head Head: normal to (more content not included)... Normal [facility] CNPNon [facility]10-2024 [facility] JAZZ PETTY ([id number]) 1970 F Date Time Provider Department 10/10/24 RAYMOND MEYERS During your visit today, we recorded the following information about you: Allergies As of Date: 10/10/2024 (No Known Allergies) Date Reviewed: 09/28/2024 Reviewed by: Danae Bar APRN.SNOW REMOVAL/PLOWING - Fully Assessed Reason for Visit: Mammogram Result Call Back [[id number]] Cmt: right breast diag mamm and us cb per ld Prescriptions as of 10/10/2024 - metFORMIN ER (GLUCOPHAGE XR) 500 mg 24 hr tablet Take 500 mg by mouth daily at bedtime. - cetirizine (ZYRTEC) 10 mg tablet Take 10 mg by mouth as needed. - levothyroxine (SYNTHROID) 25 mcg tablet TAKE 1 TABLET BY MOUTH EVERY DAY IN THE MORNING ON EMPTY STOMACH - rosuvastatin (CRESTOR) 10 mg tablet Take 10 mg by mouth every other day. - ergocalciferol, vitamin D2, (VITAMIN D2 ORAL) Take by mouth once daily. - lisinopril (ZESTRIL, PRINIVIL) 10 mg tablet Take 7.5 mg by mouth once daily. - MULTIVITAMIN (MULTIPLE VITAMIN ORAL) Take by mouth. Problem List As Of Date 10/10/2024 Noted Resolved Cervical high risk human papillomavirus (HPV) D*05/25/2011 09/25/2022 Low grade squamous intraepithelial dysplasia [I*07/10/2014 09/25/2022 Benign hypertension [I10] 07/23/2020 Heart murmur [R01.1] 07/23/2020 Hyperlipidemia [E78.5] 07/23/2020 Hypothyroidism [E03.9] 07/23/2020 Anxiety [F41.9] 07/23/2020 Attention deficit hyperactivity disorder (ADHD)*09/25/2022 Pulmonary hypertension (HCC) [I27.20] 06/02/2022 Tricuspid valve insufficiency [I07.1] 01/11/2022 Encounter Status:Closed by CLIARE ONEIL on 10/10/24 Normal [facility] DBT Breast - right diagnosti c for implanton 10-10-2024 IMPRESSION: The area of concern screening mammography is not reproduced on diagnostic mammography. No sonographic correlate. Findings may represent fibroglandular tissue or perhaps a cyst with interval resolution. There is no mammographic or sonographic evidence of malignancy in the right breast. Return to annual screening mammogram is recommended. Annual mammogram will be due in 1 year. BI-RADS Category 1: Negative RISK: Based on the Tyrer-Cuzick (TC) risk assessment model, this patient has a 16.9% lifetime risk of developing breast cancer, meaning they are at average risk for developing breast cancer. However, this is only an estimate based on available history provided on the patient's questionnaire. We encourage all patients to talk with their providers about these results, further recommendations for managing breast health, and appropriate supplemental screening options if the patient has dense breast tissue. Interpreting Radiologist: Wilton Cisneros M.D. Electronically signed on: 10/10/2024 Foot Worker: NESTOR Transcribe Date/Time: Oct 10 2024 3:26P Dictated by: WILTON CISNEROS MD This examination was interpreted and the report reviewed and electronically signed by: WILTON CISNEROS MD on Oct 10 2024 4:06PM [facility] DIVISION OF RADIOLOGY * * *Final Report* * * DATE OF EXAM: Oct 10 2024 3:57PM [facility] 0629 - EMMA JULIET SINGLETON RT / PROCEDURE REASON: Abnormal mammogram * * * * Physician Interpretation * * * * RESULT: [place] [address] #[id number] - EMMA SINGLETON RT #[id number] - [facility] Anthillz RT HISTORY: 53 year-old patient presents for diagnostic evaluation of the finding(s) described on prior mammogram in the right breast. Patient states no personal history of breast cancer. The patient has a family history of breast cancer. COMPARISON STUDIES: The present examination has been compared to prior imaging studies dated 07/23/2020 (mammogram), 08/15/2021 (mammogram), 08/21/2022 (mammogram), 09/27/2023 (mammogram) and 09/28/2024 (mammogram). MAMMOGRAM TECHNIQUE: The study was acquired using full field digital technology and interpreted from soft copy. Digital Breast Tomosynthesis (DBT) images were obtained and used to assist in the interpretation of this examination. MAMMOGRAM FINDINGS: The breast is heterogeneously dense, which may obscure small masses. No suspicious masses, calcifications or other abnormalities are seen in the right breast. There are no significant interval changes. ULTRASOUND TECHNIQUE: Targeted ultrasound of the indicated area was performed. Marie scale images were saved. ULTRASOUND FINDINGS: There are no suspicious findings in the imaged area. DIVISION OF RADIOLOGY Provider, [facility] - 10/10/2024 * * *Final Report* * * DATE OF EXAM: Oct 10 2024 3:57PM [facility] 0629 - [facility] JULIET Dior ARELI RT / PROCEDURE REASON: Abnormal mammogram * * * * Physician Interpretation * * * * RESULT: [place] [address] #[id number] - EMMA KATALINAG W ARELI RT #[id number] - [facility] Anthillz RT HISTORY: 53 year-old patient presents for diagnostic evaluation of the finding(s) described on prior mammogram in the right breast. Patient states no personal history of breast cancer. The patient has a family history of breast cancer. COMPARISON STUDIES: The present examination has been compared to prior imaging studies dated 07/23/2020 (mammogram), 08/15/2021 (mammogram), 08/21/2022 (mammogram), 09/27/2023 (mammogram) and 09/28/2024 (mammogram). MAMMOGRAM TECHNIQUE: The study was acquired using full field digital technology and interpreted from soft copy. Digital Breast Tomosynthesis (DBT) images were obtained and used to assist in the interpretation of this examination. MAMMOGRAM FINDINGS: The breast is heterogeneously dense, which may obscure small masses. No suspicious masses, calcifications or other abnormalities are seen in the right breast. There are no significant interval changes. ULTRASOUND TECHNIQUE: Targeted ultrasound of the indicated area was performed. Marie scale images were saved. ULTRASOUND FINDINGS: There are no suspicious findings in the imaged area. IMPRESSION IMPRESSION: The area of concern screening mammography is not reproduced on diagnostic mammography. No sonographic correlate. Findings may represent fibroglandular tissue or perhaps a cyst with interval resolution. There is no mammographic or sonographic evidence of malignancy in the right breast. Return to annual screening mammogram is recommended. Annual mammogram will be due in 1 year. BI-RADS Category 1: Negative RISK: Based on the Tyrer-Cuzick (TC) risk assessment model, this patient has a 16.9% lifetime risk of developing breast cancer, meaning they are at average risk for developing breast cancer. However, this is only an estimate based on available history provided on the patient's questionnaire. We encourage all patients to talk with their providers about these results, further recommendations for managing breast health, and appropriate supplemental screening options if the patient has dense breast tissue. Interpreting Radiologist: Wilton Cisneros M.D. Electronically signed on: 10/10/2024 Foot Worker: NESTOR Transcribe Date/Time: Oct 10 2024 3:26P Dictated by: WILTON CISNEROS MD This examination was interpreted and the report reviewed and electronically signed by: WILTON CISNEROS MD on Oct 10 2024 4:06PM [facility] EMMA CHUNG W ARELI RTon 025 EMMA DARDENG W ARELI RT * * *Final Report* * * DATE OF EXAM: Oct 10 2024 3:57PM W 06 - EMMA SINGLETON RT / PROCEDURE REASON: Abnormal mammogram * * * * Physician Interpretation * * * * RESULT: [place] [id number] #[id number] - EMMA SINGLETON RT #[id number] - [facility] BREAST LTD RT HISTORY: 53 year-old patient presents for diagnostic evaluation of the finding(s) described on prior mammogram in the right breast. Patient states no personal history of breast cancer. The patient has a family history of breast cancer. COMPARISON STUDIES: The present examination has been compared to prior imaging studies dated 07/23/2020 (mammogram), 08/15/2021 (mammogram), 08/21/2022 (mammogram), 09/27/2023 (mammogram) and 09/28/2024 (mammogram). MAMMOGRAM TECHNIQUE: The study was acquired using full field digital technology and interpreted from soft copy. Digital Breast Tomosynthesis (DBT) images were obtained and used to assist in the interpretation of this examination. MAMMOGRAM FINDINGS: The breast is heterogeneously dense, which may obscure small masses. No suspicious masses, calcifications or other abnormalities are seen in the right breast. There are no significant interval changes. ULTRASOUND TECHNIQUE: Targeted ultrasound of the indicated area was performed. Marie scale images were saved. ULTRASOUND FINDINGS: There are no suspicious findings in the imaged area. IMPRESSION: The area of concern screening mammography is not reproduced on diagnostic mammography. No sonographic correlate. Findings may represent fibroglandular tissue or perhaps a cyst with interval resolution. There is no mammographic or sonographic evidence of malignancy in the right breast. Return to annual screening mammogram is recommended. Annual mammogram will be due in 1 year. BI-RADS Category 1: Negative RISK: Based on the Tyrer-Cuzick (TC) risk assessment model, this patient has a 16.9% lifetime risk of developing breast cancer, meaning they are at average risk for developing breast cancer. However, this is only an estimate based on available history provided on the patient's questionnaire. We encourage all patients to talk with their providers about these results, further recommendations for managing breast health, and appropriate supplemental screening options if the patient has dense breast tissue. Interpreting Radiologist: Wilton Cisneros M.D. Electronically signed on: 10/10/2024 Foot Worker: NESTOR Transcribe Date/Time: Oct 10 2024 3:26P Dictated by: WILTON CISNEROS MD This examination was interpreted and the report reviewed and electronically signed by: WILTON CISNEROS MD on Oct 10 2024 4:06PM EST [id number] Normal [facility] US BREAST LTD RTon 10-10 [facility] US BREAST LTD RT * * *Final Report* * * DATE OF EXAM: Oct 10 2024 3:48PM WRU [id number] - [facility] US BREAST LTD RT / PROCEDURE REASON: Abnormal mammogram * * * * Physician Interpretation * * * * [place] [address] #[id number] - [facility] JULIET [place] ARELI RT #[id number] - [facility] US BREAST LTD RT HISTORY: 53 year-old patient presents for diagnostic evaluation of the finding(s) described on prior mammogram in the right breast. Patient states no personal history of breast cancer. The patient has a family history of breast cancer. COMPARISON STUDIES: The present examination has been compared to prior imaging studies dated 07/23/2020 (mammogram), 08/15/2021 (mammogram), 08/21/2022 (mammogram), 09/27/2023 (mammogram) and 09/28/2024 (mammogram). MAMMOGRAM TECHNIQUE: The study was acquired using full field digital technology and interpreted from soft copy. Digital Breast Tomosynthesis (DBT) images were obtained and used to assist in the interpretation of this examination. MAMMOGRAM FINDINGS: The breast is heterogeneously dense, which may obscure small masses. No suspicious masses, calcifications or other abnormalities are seen in the right breast. There are no significant interval changes. ULTRASOUND TECHNIQUE: Targeted ultrasound of the indicated area was performed. Marie scale images were saved. ULTRASOUND FINDINGS: There are no suspicious findings in the imaged area. IMPRESSION: The area of concern screening mammography is not reproduced on diagnostic mammography. No sonographic correlate. Findings may represent fibroglandular tissue or perhaps a cyst with interval resolution. There is no mammographic or sonographic evidence of malignancy in the right breast. Return to annual screening mammogram is recommended. Annual mammogram will be due in 1 year. BI-RADS Category 1: Negative RISK: Based on the Tyrer-Cuzick (TC) risk assessment model, this patient has a 16.9% lifetime risk of developing breast cancer, meaning they are at average risk for developing breast cancer. However, this is only an estimate based on available history provided on the patient's questionnaire. We encourage all patients to talk with their providers about these results, further recommendations for managing breast health, and appropriate supplemental screening options if the patient has dense breast tissue. Interpreting Radiologist: Wilton Cisneros M.D. Electronically signed on: 10/10/2024 Foot Worker: NESTOR Transcrihailey Date/Time: Oct 10 2024 3:46P Dictated by : WILTON CISNEROS MD This examination was interpreted and the report reviewed and electronically signed by: WILTON CISNEROS MD on Oct 10 2024 4:06PM EST [id number] Normal [facility] No Panel InformationOrdered By: [facility] Provider on 10-10-2024 [facility] No Panel Informationon 10-10 Radiology Study observation (narrative) [facility] US Breast - right limitedon 10-10-2024 IMPRESSION: The area of concern screening mammography is not reproduced on diagnostic mammography. No sonographic correlate. Findings may represent fibroglandular tissue or perhaps a cyst with interval resolution. There is no mammographic or sonographic evidence of malignancy in the right breast. Return to annual screening mammogram is recommended. Annual mammogram will be due in 1 year. BI-RADS Category 1: Negative RISK: Based on the Tyrer-Cuzick (TC) risk assessment model, this patient has a 16.9% lifetime risk of developing breast cancer, meaning they are at average risk for developing breast cancer. However, this is only an estimate based on available history provided on the patient's questionnaire. We encourage all patients to talk with their providers about these results, further recommendations for managing breast health, and appropriate supplemental screening options if the patient has dense breast tissue. Interpreting Radiologist: Wilton Cisneros M.D. Electronically signed on: 10/10/2024 Foot Worker: NESTOR Transcribe Date/Time: Oct 10 2024 3:46P Dictated by : WILTON CISNEROS MD This examination was interpreted and the report reviewed and electronically signed by: WILTON CISNEROS MD on Oct 10 2024 4:06PM EST DIVISION OF RADIOLOGY * * *Final Report* * * DATE OF EXAM: Oct 10 2024 3:48PM RUST [id number] - [facility] US BREAST [facility] RT / PROCEDURE REASON: Abnormal mammogram * * * * Physician Interpretation * * * * [facility] [address] [place] [address] #[id number] - [facility] DIAG [place] RT #[id number] - [facility] [place] BREAST [address] RT HISTORY: 53 year-old patient presents for diagnostic evaluation of the finding(s) described on prior mammogram in the right breast. Patient states no personal history of breast cancer. The patient has a family history of breast cancer. COMPARISON STUDIES: The present examination has been compared to prior imaging studies dated 07/23/2020 (mammogram), 08/15/2021 (mammogram), 08/21/2022 (mammogram), 09/27/2023 (mammogram) and 09/28/2024 (mammogram). MAMMOGRAM TECHNIQUE: The study was acquired using full field digital technology and interpreted from soft copy. Digital Breast Tomosynthesis (DBT) images were obtained and used to assist in the interpretation of this examination. MAMMOGRAM FINDINGS: The breast is heterogeneously dense, which may obscure small masses. No suspicious masses, calcifications or other abnormalities are seen in the right breast. There are no significant interval changes. ULTRASOUND TECHNIQUE: Targeted ultrasound of the indicated area was performed. Marie scale images were saved. ULTRASOUND FINDINGS: There are no suspicious findings in the imaged area. DIVISION OF RADIOLOGY Provider, [facility] - 10/10/2024 * * *Final Report* * * DATE OF EXAM: Oct 10 2024 3:48PM RUST 0594 - [facility] [place] BREAST [address] RT / PROCEDURE REASON: Abnormal mammogram * * * * Physician Interpretation * * * * [facility] [address] [place], [place] [id number] #[id number] - [facility] [place] W ARELI RT #[id number] - [facility] [place] BREAST LTD RT HISTORY: 53 year-old patient presents for diagnostic evaluation of the finding(s) described on prior mammogram in the right breast. Patient states no personal history of breast cancer. The patient has a family history of breast cancer. COMPARISON STUDIES: The present examination has been compared to prior imaging studies dated 07/23/2020 (mammogram), 08/15/2021 (mammogram), 08/21/2022 (mammogram), 09/27/2023 (mammogram) and 09/28/2024 (mammogram). MAMMOGRAM TECHNIQUE: The study was acquired using full field digital technology and interpreted from soft copy. Digital Breast Tomosynthesis (DBT) images were obtained and used to assist in the interpretation of this examination. MAMMOGRAM FINDINGS: The breast is heterogeneously dense, which may obscure small masses. No suspicious masses, calcifications or other abnormalities are seen in the right breast. There are no significant interval changes. ULTRASOUND TECHNIQUE: Targeted ultrasound of the indicated area was performed. Marie scale images were saved. ULTRASOUND FINDINGS: There are no suspicious findings in the imaged area. IMPRESSION IMPRESSION: The area of concern screening mammography is not reproduced on diagnostic mammography. No sonographic correlate. Findings may represent fibroglandular tissue or perhaps a cyst with interval resolution. There is no mammographic or sonographic evidence of malignancy in the right breast. Return to annual screening mammogram is recommended. Annual mammogram will be due in 1 year. BI-RADS Category 1: Negative RISK: Based on the Tyrer-Cuzick (TC) risk assessment model, this patient has a 16.9% lifetime risk of developing breast cancer, meaning they are at average risk for developing breast cancer. However, this is only an estimate based on available history provided on the patient's questionnaire. We encourage all patients to talk with their providers about these results, further recommendations for managing breast health, and appropriate supplemental screening options if the patient has dense breast tissue. Interpreting Radiologist: Wilton Cisneros M.D. Electronically signed on: 10/10/2024 Foot Worker: NESTOR Transcribe Date/Time: Oct 10 2024 3:46P Dictated by : WILTON CISNEROS MD This examination was interpreted and the report reviewed and electronically signed by: WILTON CISNEROS MD on Oct 10 2024 4:06PM EST [facility] CNOVon 09-28-2024 CNOV Office Visit (OBGYWM ) JAZZ PETTY ([id number]) 1970 F Date Time Provider Department 09/28/24 3:30 PM DANAE BAR OBGYWDaniel During your visit today, we recorded the following information about you: Blood pressure Weight Height Last Period 126/88 80.6 kg 1.651 m 09/18/24 Danae Bar APRN.SNOW REMOVAL/PLOWING 09/28/2024 3:07 PM Signed 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 Jazz is a 53 year old who presents for an annual gynecologic exam without complaints. Postmenopausal: No. Menstrual cycle every 45, irregular with 4-5 days flow. HRT use: No. 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 Pap smear (cervix),lgsil Essential hypertension High cholesterol Undiagnosed cardiac murmurs PAST SURGICAL HISTORY Procedure Laterality Date COLPOSCOPY CERVIX UPPER/ADJACENT VAGINA 1995,2009, Colposcopy UNSPECIFIED ORAL SURGERY PROCEDURE, BY REPORT WISDOM TEETH EXTRACTION FAMILY HISTORY Problem Relation Age of Onset Diabetes Mother Heart Mother CHF Thyroid Mother Cancer Father LUNG CANCER Thyroid Maternal Grandmother Heart Maternal Grandmother CHF Emphysema Maternal Grandfather Breast Cancer Maternal Aunt Heart Maternal Aunt CHF SOCIAL HISTORY Social History Tobacco Use Smoking status: Never Passive exposure: Never Smokeless tobacco: Never Vaping Use Vaping status: Never Used Substance Use Topics Alcohol use: Yes Comment: occasionally,NOT WHILE Drug use: No REVIEW OF SYSTEMS Abdomen: No abdominal pain, nausea, vomiting, diarrhea, or constipation. No bloating, early satiety, indigestion, or increased flatulence. Bladder: No dysuria, gross hematuria, urinary frequency, urinary urgency, or incontinence Breast: No breast lumps, nipple d/c, overlying skin changes, redness or skin retraction Allergies and current medication updated:Yes SENSITIVE EXAM: The sensitive examination was discussed with the Patient or Patient's Authorized Assurance Senior. As applicable, any other physician, advance practice provider, medical student, or other health professional student that will be observing or involved in the sensitive examination for educational or training purposes was discussed with the Patient or Authorized Assurance Senior. The Patient or Authorized Assurance Senior has agreed to proceed with the sensitive examination. (Sensitive examination includes inspection and/or palpation of the breasts, pelvis, prostate and anorectal regions). EXAM: BP 126/88 Ht 5' 5" (1.65m) Wt 177 lb 9.6 oz (80.6kg) LMP 09/18/2024 BMI 29.55 kg/(m2). GENERAL: pleasant, female in no apparent distress HEENT: Normocephalic, atraumatic, mucus membranes moist, and no lesions DERMATOLOGY: Normal, without lesions, non-icteric, and non-hirsute BREAST: soft, non-tender, symmetric, no dominant mass, normal nipple-areolar complex, no lymphadenopathy, and no nipple discharge CHEST: Normal inspiratory effort ABDOMEN: soft, non-tender, and no masses PELVIC: external genitalia normal, normal Bartholin's glands, urethra, [place]'s glands, no vulvar lesions, no cervical lesions, physiologic discharge present, normal appearing perineal body and perianal region BIMANUAL: uterus normal size, shape and consistency, no adnexal masses, and non-tender RECTOVAGINAL: deferred. NEURO: alert and oriented x3,exam grossly non-focal EXTREMITIES: normal ASSESSMENT/PLAN: 1) Health maintenance: Pap/HPV up to date. Mammogram ordered Mammogram up to date Nutrition, exercise and routine health maintenance exams reviewed. Calcium/Vitamin D supplementation information provided. 2) Follow up one year or sooner as needed Danae Bar APRN.SNOW REMOVAL/PLOWING Referring Provider: DANAE BAR [[id number]] Allergies As of Date: 09/28/2024 (No Known Allergies) Date Reviewed: 09/28/2024 Reviewed by: Danae Bar APRN.SNOW REMOVAL/PLOWING - Fully Assessed Reason for Visit: Well Woman [[id number]] Primary Visit Diagnosis:Encounter for gynecological examination (general) (routine) without abnormal findings [Z01.419] Other Visit Diagnosis:Encounter for screening mammogram for breast c (more content not included)... Normal [facility] EMMA SCREENING W TOMOon 09-28 [facility] SCREENING W ARELI * * *Final Report* * * DATE OF EXAM: Sep 28 2024 2:23PM WRW [id number] - [facility] SCREENING W ARELI / PROCEDURE REASON: Encounter for screening mammogram for breast cancer * * * * Physician Interpretation * * * * RESULT: [place] [address] [place] [address] #[id number] - [facility] SCREENING W ARELI HISTORY: 53 year-old patient presents for screening. Patient is asymptomatic in both breasts. Patient states no personal history of breast cancer. The patient has a family history of breast cancer. COMPARISON STUDIES: The present examination has been compared to prior imaging studies dated 05/21/2015 (mammogram), 06/05/2016 (mammogram), 06/08/2017 (mammogram), 06/14/2018 (mammogram), 06/16/2019 (mammogram), 07/23/2020 (mammogram), 08/15/2021 (mammogram), 08/21/2022 (mammogram) and 09/27/2023 (mammogram). MAMMOGRAM TECHNIQUE: The study was acquired using full field digital technology and interpreted from soft copy. Digital Breast Tomosynthesis (DBT) images were obtained and used to assist in the interpretation of this examination. MAMMOGRAM FINDINGS: The breasts are heterogeneously dense, which may obscure small masses. There is a low density, oval mass in the central region of the right breast, posterior depth. No suspicious masses, calcifications or other abnormalities are seen in the left breast. IMPRESSION: The oval mass in the central region of the right breast, posterior depth requires additional evaluation. Diagnostic ultrasound is recommended. BI-RADS Category 0: Incomplete: Needs Additional Imaging Evaluation RISK: Based on the Tyrer-Cuzick (TC) risk assessment model, this patient has a 16.4% lifetime risk of developing breast cancer, meaning they are at average risk for developing breast cancer. However, this is only an estimate based on available history provided on the patient's questionnaire. We encourage all patients to talk with their providers about these results, further recommendations for managing breast health, and appropriate supplemental screening options if the patient has dense breast tissue. REF#[id number]. Interpreting Radiologist: Raymond Meyers M.D. Electronically signed on: 09/29/2024 Foot Worker: NESTOR Transcribe Date/Time: Sep 28 2024 2:13P Dictated by: RAYMOND MEYERS MD This examination was interpreted and the report reviewed and electronically signed by: RAYMOND MEYERS MD on Sep 29 2024 8:20AM EST [id number] Normal [facility] Inital Evaluation (1) - PTon 08-14-2024 Inital Evaluation (1) - PT [facility] Physical Therapy [facility] [address] [place] [address] [address] [place] [address] / REHABILITATION SERVICES INITIAL EVALUATION MR#: [id number] Acct: [id number] Name: JAZZ PETTY Rep #: [id number] : 1970 53 From: Miguel Peng DPT Referring Dr.: Dr. Zenaida Barksdale DO Status: REG R Insurance: [facility] SELF PAY INSURANCE Patient's Visit Information Visit Information Visit Information: JAZZ COY is a 53 year old F referred to Physical Therapy by Dr. Zenaida Barksdale DO with a diagnosis of cervical radiculopathy, trap spams, L IT band pain, piriformis and gastroc. Date of Evaluation: 08/11/24 Physical Therapist: Miguel Peng DPT Visit Plan Frequency: 2x /Week Duration: 4 Weeks Plan: Start with core and cervical strengthening lumbar ROM into extension. Add in DN as needed for cervical erector spinae and B UT. Subjective Subjective: Pt. is here today for her initial evaluation with diagnosis of cervical radiculopathy, trap spams, L IT band pain, piriformis pain and gastroc pain. Pt. has marked multiple issues, concerns for multiple signs suggesting systemic issues. Pt. reports not as much neck pain, but is more stiffness. Pt. reports having tingle in her L shoulder and shoulder blade. "I can adjust a little bit and it does a away." Pt. reports that it is more annoying than painful. Pain Cervical spine: Pain Intensity (Out of 10): 2 Objective Objective: POSTURE: Pt. has fairly normal posture with out major FH posture. PALPATION: Pt. bas mild karuna NEURO: normal sensation and normal DTR of BUEs/BLEs. ROM: Pt. has normal cervical spine ROM, but does report some increase tingling with increased flexion. No marked issues. LUMBAR SPINE: normal ROM, but had a light increase in symptoms with extension, no pain with rest of movements. MMT: Pt. has 5/5 strength throughout BLEs, Core strength- fair-. BUEs 5/5 throughout. GAIT: Pt. has normal gait pattern. No abnormalities noted. STAIRS: Normal. Balance/Special Test Scores Oswestry Neck Score: 13 Goals Goal 1:: LTG: pt. to be I with HEP. Goal Time Frame: 4-6 Weeks Goal 2:: STG: Pt. to have no pain with all work and recreational activities. Goal Time Frame: 2-4 Weeks Goal 3:: LTG: pt. to sleep throughout the night without increase in symptoms. Goal Time Frame: 4-6 Weeks Goal 4:: LTG: Pt. to have full lumbar/cervical ROM without increase in symptoms. Goal Time Frame: 4-6 Weeks Goal 5:: LTG: Pt. to reports no cervical or lumbar radicular symptoms. Goal Time Frame: 4-6 Weeks Goal 6:: LTG: Pt. to complete all work activities without increase in neck or back pain. Goal Time Frame: 4-6 Weeks Rehabilitation Potential Physical Therapy Diagnosis: Pt. has signs and symptoms consistent with cervical radiculopathy, trap spams, L IT band pain, piriformis pain and gastroc pain. Pt. appears to have more chronic neck pain/tightness, but not as severe radicular symptoms. She is also having some low back pain that seems to progressing into her leg, but not marked radicular symptoms with testing today. Pt. would benefit from PT to address the above limitation progressing back to all recreational/work activities without limitations. Anticipated Interventions Therapeutic Exercise to Include: Strength training, Power training, Endurance training, Body mechanics, Flexibilty training, Passive ROM and Active ROM For the Purpose of:: To decrease pain, To decrease swelling/inflammation, To increase ROM, To improve nutrient delivery to tissue, To increase oxygenation perfusion, To improve health of tissue, To decrease soft tissue restriction and To increase flexibility/ROM Manual Therapy Techniques to Include: Mobilization, Functional dry needling and Soft tissue mobilization For the Purpose of:: To decrease pain, To decrease swelling/inflammation, To increase ROM and To improve nutrient delivery to tissue Text: Thank you for the opportunity to evaluate your patient. For Medicare and Medicare HMO plans, please review the plan of care and approve it. It will need to be FAXED BACK to us at [phone] for Medicare purposes. For Medicare only, by signing this I certify the plan of care. Please let me know if there are questions or concerns regarding this plan of care. Physician Signature: Date:__ 08/14/24 1409 CC: Dr. Zenaida Barksdale DO CLS Signed Normal [facility] CNOVon 03-15-2024 [facility] Office Visit ([facility] ) JAZZ PETTY ([id number]) 1970 F Date Time Provider Department 03/15/24 2:00 PM SULAIMAN WHYTE [facility] During your visit today, we recorded the following information about you: Temperature Pulse Respiration Blood pressure 97.4 degrees 76/minute 18/minute 130/83 Weight Height 83.1 kg 1.651 m Sulaiman Whyte MD 03/15/2024 2:26 PM Signed Patient Name: Jazz Coy PRIMARY CARE PHYSICIAN: Stone Torres MD Date of visit: March 15, 2024 COMMUNICATION WILL BE SENT VIA SHARED MEDICAL RECORDS OR US MAIL. Subjective: Jazz Coy is a 53 year old female who is known to this clinic and presents as follow up for pulmonary hypertension . Patient last seen back on 03/2023, in the interim patient continues to be doing great. Specifically denies any symptoms of exertion, even with intense exercise, no SOB, denies fevers, chills, NS, coughing, chest pain, pedal edema, syncope/presyncope, or any other acute respiratory complaints. Comes in today for follow up with regards to recent echocardiogram. In good spirits. In review (Documentation from prior appt on 03/2023): She is very active and exercises on elliptical 4-6x/week. No limitations in any activities. 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 Denies any chemical or occupational exposures Has no impressive tobacco use history. Has social ETOH use (minimal). Denies hx of cocaine or other illicit drug use. Denies hx of diet pill use. Denies any impressive hx of lung disease or heart disease. Family hx of CHF (mother, aunt, grandmother). Denies family hx of lung hypertension. Mother has history of VTE (has genetic predisposition). PMHx: PAST MEDICAL HISTORY Diagnosis Date Abnormal glandular Papanicolaou smear of cervix 04/19/2009 +HPV Abnormal glandular Papanicolaou smear of cervix Abn. Pap smear (cervix),lgsil Essential hypertension High cholesterol Undiagnosed cardiac murmurs MEDICATIONS: cetirizine (ZYRTEC) 10 mg tablet Take 10 mg by mouth as needed. levothyroxine (SYNTHROID) 25 mcg tablet TAKE 1 TABLET BY MOUTH EVERY DAY IN THE MORNING ON EMPTY STOMACH rosuvastatin (CRESTOR) 10 mg tablet Take 10 mg by mouth every other day. ergocalciferol, vitamin D2, (VITAMIN D2 ORAL) Take by mouth once daily. lisinopril (ZESTRIL, PRINIVIL) 10 mg tablet Take 7.5 mg by mouth once daily. MULTIVITAMIN (MULTIPLE VITAMIN ORAL) Take by mouth. fish oil/borage/flax/om3,6, 9 1 (FISH,BORA,FLAX OILS-OM3,6,9NO1 ORAL) Take 1 mg by mouth. (Patient not taking: Reported on 03/15/2024) Allergies: Patient has no known allergies. PHYSICAL EXAM: BP 130/83 Pulse 76 Temp (Src) 97.4 (Temporal Artery) Resp 18 Ht 5' 5" (1.65m) Wt 183 lb 1.6 oz (83.1kg) SpO2 96% LMP 09/19/2023 BMI 30.47 kg/(m2). Last Wt 03/15/24 83.1 kg (183 lb 1.6 oz) 09/27/23 78.7 kg (173 lb 9.6 oz) 06/29/23 78.7 kg (173 lb 8 oz) 04/09/23 77.1 kg (170 lb) General- nad, comfortable in general appearance Neck- supple, no obvious JVD CV- RRR, no M/G/R Resp- clear to auscultation bilaterally, no wheezes or crackles, breathing nonlabored Abd- +bs, soft, nt, nd Ext- no clubbing, cyanosis, or edema Psych- appropriate mood and affect Labs / Imaging / Diagnostic Studies: Diagnostic tests reviewed for today's visit, films/specimens were personally reviewed by me. PFTs 02/2022 (Within normal limits) FVC 4.75L FEV1 3.31L (127%) TLC 7.39L DlCO 121% CT Chest 02/2022 IMPRESSION: 1. No CT evidence of pulmonary hypertension. Main pulmonary artery is not enlarged. 2. Several small pulmonary nodules measuring up to 6 mm in greatest diameter. Based on the 2017 Fleischner Society guidelines, no follow is necessary if this patient is considered low risk for lung cancer. If the patient is considered high risk, a follow-up CHEST W/O CONTRAST (code: [id number]) is optional at 12 months. 3. Additional incidental findings, as above. PSG 2021: within normal limits (no SKYLAR noted) TTE 02/2024 CONCLUSIONS: - Exam indication: Re-evaluation of known pulmonary hypertension (to guide therapy) - The left ventricle is normal in size. There is no left ventricular hypertrophy. Left ventricular systolic function is normal. EF = 71 ? 5% (2D biplane) Normal left ventricular diastolic function. - The right ventricle is normal in size. Right ventricular systolic function is normal. - There is mild (1+) tricuspid valve regurgitation. - Estimated right ventricular systolic pressure is 38 mmHg consistent with mild pulmonary hypertension. Estimated right atrial pressure is 3 mmHg based on IVC assessment. - Exam was compared with the prior echocardiographic exam performed on 01/15/23. RVSP was reported at 29 mmHG on previous study. TTE 12/2022 - The left ventricle is normal in size (more content not included)... Normal [facility] ECHOon 03-03-2024 Echocardiography Report: Transthoracic Echo [facility] Date of service: 03/03/2024 2:43:18 PM [facility] Ordering physician: SULAIMAN WHYTE Indication: Re-evaluation of known pulmonary hypertension (to guide therapy) Technologist: Daniela Chang Interpreting physician: Anastasia Soares MD PATIENT: Name: MS. JAZZ COY : 1970 Age: 53 years Gender: F History of hypertension. Primary rhythm: sinus. Height: 165.10 cm BSA: 1.90 m Weight: 78.74 kg BMI: 28.9 kg/m Heart rate 80 bpm Blood pressure 132/74 mmHg Color Doppler was utilized to interrogate the cardiac valves assessed and spectral Doppler was utilized to determine the flow velocities and pressure gradients reported in this exam. MEASUREMENTS: Value Indexed Normal Max aortic dimension 2.6 cm Ao < 3.8 Left atrial volume 48 ml (biplane A-L) 25 ml/m Zuly <= 34 LV ID (diastole) 4.0 cm (2D) 2.10 cm/m LV ID (systole) 1.9 cm (2D) 1.00 cm/m IVS, leaflet tips 0.7 cm (2D) Posterior wall thickness 0.7 cm (2D) Left ventricular mass 75 g (2D) 39 g/m LV stroke volume 43 ml (2D biplane) LV end diastolic volume 61 ml (2D biplane) 32.0 ml/m 29<=EDVi<62 LV end systolic volume 18 ml (2D biplane) 9.4 ml/m Ejection Fraction 71 % (2D biplane) EF > 54 FINDINGS: LEFT VENTRICLE The left ventricle is normal in size. There is no left ventricular hypertrophy. Left ventricular systolic function is normal globally. Normal left ventricular diastolic function. Mitral annular lateral E/e': 6.3. Mitral annular septal E/e': 8.4. Wall Motion: All scored segments are normal. RIGHT VENTRICLE The right ventricle is normal in size. Right ventricular systolic function is normal. RV systolic tissue Doppler velocity is 17.0 cm/s. Tricuspid annular displacement is 1.8 cm. Estimated right ventricular systolic pressure is 38 mmHg consistent with mild pulmonary hypertension. Estimated right atrial pressure is 3 mmHg based on IVC assessment. LEFT ATRIUM The left atrial cavity is normal in size. RIGHT ATRIUM The right atrial cavity is normal in size. Inferior Vena Cava: The inferior vena cava appears normal measuring 1.7 cm. The vessel decreases greater than 50 percent with inspiration. MITRAL VALVE The mitral valve leaflets are structurally normal. There is trace mitral valve regurgitation. The pressure half time is 64 msec. The peak mitral E/A ratio is 1.20. The average mitral E/e' ratio is 7.4. The mitral flow deceleration time is 221 msec. TRICUSPID VALVE There is mild (1+) tricuspid valve regurgitation. There is no thickening. The hepatic venous pattern showed normal systolic flow. AORTIC VALVE The aortic valve cusps are structurally normal. There is no aortic valve regurgitation. Tricuspid aortic valve. PULMONIC VALVE There is trace pulmonic valve regurgitation. There is no thickening. AORTA The visualized aorta is normal in size. Measurements - Mid ascending aorta 2.6 cm. PULMONARY ARTERIES The pulmonary arteries are unseen or not interrogated. INTERATRIAL SEPTUM There is no evidence of intracardiac shunting as detected by Doppler. INTERVENTRICULAR SEPTUM There is no flow through the interventricular septum as detected by Doppler. PERICARDIUM There is no pericardial effusion. [facility] Echocardiography Echocardiography Report: Transthoracic Echo [facility] Date of service: 03/03/2024 2:43:18 PM [facility] Ordering physician: SULAIMAN WHYTE Indication: Re-evaluation of known pulmonary hypertension (to guide therapy) Technologist: Daniela Chang Interpreting physician: Anastasia Soares MD PATIENT: Name: MS. JAZZ COY : 1970 Age: 53 years Gender: F History of hypertension. Primary rhythm: sinus. Height: 165.10 cm BSA: 1.90 m Weight: 78.74 kg BMI: 28.9 kg/m Heart rate 80 bpm Blood pressure 132/74 mmHg Color Doppler was utilized to interrogate the cardiac valves assessed and spectral Doppler was utilized to determine the flow velocities and pressure gradients reported in this exam. MEASUREMENTS: Value Indexed Normal Max aortic dimension 2.6 cm Ao < 3.8 Left atrial volume 48 ml (biplane A-L) 25 ml/m Zuly <= 34 LV ID (diastole) 4.0 cm (2D) 2.10 cm/m LV ID (systole) 1.9 cm (2D) 1.00 cm/m IVS, leaflet tips 0.7 cm (2D) Posterior wall thickness 0.7 cm (2D) Left ventricular mass 75 g (2D) 39 g/m LV stroke volume 43 ml (2D biplane) LV end diastolic volume 61 ml (2D biplane) 32.0 ml/m 29<=EDVi<62 LV end systolic volume 18 ml (2D biplane) 9.4 ml/m Ejection Fraction 71 % (2D biplane) EF > 54 FINDINGS: LEFT VENTRICLE The left ventricle is normal in size. There is no left ventricular hypertrophy. Left ventricular systolic function is normal globally. Normal left ventricular diastolic function. Mitral annular lateral E/e': 6.3. Mitral annular septal E/e': 8.4. Wall Motion: All scored segments are normal. RIGHT VENTRICLE The right ventricle is normal in size. Right ventricular systolic function is normal. RV systolic tissue Doppler velocity is 17.0 cm/s. Tricuspid annular displacement is 1.8 cm. Estimated right ventricular systolic pressure is 38 mmHg consistent with mild pulmonary hypertension. Estimated right atrial pressure is 3 mmHg based on IVC assessment. LEFT ATRIUM The left atrial cavity is normal in size. RIGHT ATRIUM The right atrial cavity is normal in size. Inferior Vena Cava: The inferior vena cava appears normal measuring 1.7 cm. The vessel decreases greater than 50 percent with inspiration. MITRAL VALVE The mitral valve leaflets are structurally normal. There is trace mitral valve regurgitation. The pressure half time is 64 msec. The peak mitral E/A ratio is 1.20. The average mitral E/e' ratio is 7.4. The mitral flow deceleration time is 221 msec. TRICUSPID VALVE There is mild (1+) tricuspid valve regurgitation. There is no thickening. The hepatic venous pattern showed normal systolic flow. AORTIC VALVE The aortic valve cusps are structurally normal. There is no aortic valve regurgitation. Tricuspid aortic valve. PULMONIC VALVE There is trace pulmonic valve regurgitation. There is no thickening. AORTA The visualized aorta is normal in size. Measurements - Mid ascending aorta 2.6 cm. PULMONARY ARTERIES The pulmonary arteries are unseen or not interrogated. INTERATRIAL SEPTUM There is no evidence of intracardiac shunting as detected by Doppler. INTERVENTRICULAR SEPTUM There is no flow through the interventricular septum as detected by Doppler. PERICARDIUM There is no pericardial effusion. CONCLUSIONS: - Exam indication: Re-evaluation of known pulmonary hypertension (to guide therapy) - The left ventricle is normal in size. There is no left ventricular hypertrophy. Left ventricular systolic function is normal. EF = 71 5% (2D biplane) Normal left ventricular diastolic function. - The right ventricle is normal in size. Right ventricular systolic function is normal. - There is mild (1+) tricuspid valve regurgitation. - Estimated right ventricular systolic pressure is 38 mmHg consistent with mild pulmonary hypertension. Estimated right atrial pressure is 3 mmHg based on IVC assessment. - Exam was compared with the prior CC echocardiographic exam performed on 01/15/23. RVSP was reported at 29 mmHG on previous study. * * * Final * * * [facility] [employer] [facility] : [id number] Normal [facility] Cardiology Visit Reporton Cardiology Visit Report [facility] [place] [address] OFFICE VISIT Date of Service: 02/25/24 MR#: [id number] Acct: [id number] Name: JAZZ PETTY Rep #: [id number] : 1970 Provider: EN forte Age/Sex: 53/F Location: [facility] [place] Status: Signed HPI HPI History of Present Illness Details: This is a 53-year-old white female who presents today for outpatient cardiovascular follow-up visit. She was previously consulted based upon concerns of palpitations/rapid heart rate, hypertension, and a transthoracic echocardiogram suggesting tricuspid valve regurgitation and pulmonary hypertension. She states that she underwent evaluation several years ago for concerns of palpitations and a rapid heart rate. It appears in 2012 she underwent a 24-hour Holter monitor which according to the report at that time demonstrated sinus rhythm with an occasional PSVC/PVC. She also had a transthoracic echocardiogram performed at that time. According to the report her left ventricle was normal with an LVEF of 65%, she had mild TR, and an estimated RV systolic pressure of 28 mmHg. She states she did well until November of 2021. At that time after eating a somewhat salt loaded meal and having "a couple of alcoholic beverages and then falling asleep she was awakened by her family. At that time, she noted her heart rate was going fast. She presented to the [facility] emergency department for further evaluation. At that time it appeared her symptoms had resolved. Her ECG demonstrated sinus rhythm with nonspecific ST-T segment change. She was subsequently referred to cardiology for outpatient cardiovascular follow-up. In the interim she did have a transthoracic echocardiogram performed. It is noted that her left ventricle appeared to be hyperdynamic with an LVEF of 75% with mild to moderate TR and an estimated RV systolic pressure 51 mmHg appearing compatible with pulmonary hypertension. She does follow with pulmonology-Dr. Cooney, and is following with a Pulmonary HTN specialist at [facility]. She denies chest, arm, jaw, or neck discomfort. She denies palpitations. She denies bilateral lower extremity edema. She denies claudication. She denies shortness of breath with activity, shortness of breath at rest, orthopnea, or PND. She denies chronic cough. She denies significant, sudden weight gain. She denies lightheadedness, dizziness, near-syncope, or syncope. She denies blood in urine, blood in stool, or epistaxis. He denies fever with chills. She denies myalgia. She denies fatigue. Her exercise level has remained stable. Intake Vital Signs 05/21/23 08:30 02/25/24 08:30 Height 5 ft 5 in 5 ft 5 in Weight: 172 lb 180 lb BMI 28.6 29.9 BP 136/89 H 124/83 H Blood Pressure Location Lt brachial Lt brachial Position Sitting Sitting Respiration 18 16 Pulse 72 86 Pulse Source Monitor NIBP Pulse Oximetry (%) 98 Intake Visit Reasons: 9 M FU Technical Solutions Director Required: No Is patient in pain?: No Allergies No Known Allergies Allergy (Verified 02/25/24 08:32) Medications ???Medication ???Instructions ???Recorded ???Confirmed ???Type levothyroxine 25 mcg tablet 25 mcg PO DAILY 12/07/21 02/25/24 History ascorbic acid (vitamin C) 1,000 mg 1 g PO DAILY 01/23/22 02/25/24 History tablet multivitamin 1 tab PO DAILY 01/23/22 02/25/24 History ubidecarenone-omega 3-vit E 25 1 cap PO DAILY 01/23/22 02/25/24 History mg-150 (90-60) mg-200 unit capsule (Co V-69-Cmpxlil E-Fish Oil) cholecalciferol (vitamin D3) 25 25 mcg PO DAILY 01/29/22 02/25/24 History mcg (1,000 unit) tablet vitamin B complex (Complex B-100 1 tab PO DAILY 05/01/22 02/25/24 History tablet,extended release) cetirizine 10 mg tablet (Zyrtec) 10 mg PO DAILY PRN 10/30/22 02/25/24 History lisinopril 5 mg tablet 7.5 mg PO DAILY 02/25/24 02/25/24 History rosuvastatin 10 mg tablet 10 mg PO Q OTHER DAY 02/25/24 02/25/24 History Ejection fraction %: 65 Have you fallen in the past year?: No PFSH Medical History Palpitations Pure hypercholesterolemia ADHD (attention deficit hyperactivity disorder) Hypothyroidism Pulmonary hypertension Essential hypertension Non-rheumatic tricuspid valve insufficiency Hypertension Family History Grandmother Heart disease Hypothyroidism Mother Hypothyroidism Diabetes Congestive heart failure Father Cancer Lung Social History Smoking Status: Never smoker alcohol intake: current details: occasional substance use type: does not use caffeine: Yes Type: tea Number of servings: 1 ROS Const Const: Negative for fatigue or weakness Eyes Eyes: Negati (more content not included)... Normal [facility] STREP A MOLECULAR (POC)on Procedural Control Valid [facility] Strep A (POCT) Positive Abnormal Negative [facility] ECHOon 01-15-2023 [facility] CBC with auto diff ([id number])Or dered By: Histotechnician on 01-01-2023 Basophils (Bld) [#/Vol] 0.1 10*3/uL Normal 0.0-0.2 [facility]; [facility] Work Phone: Basophils/100 WBC (Bld) 1 % Normal [facility]; [facility] Work Phone: Eosinophils (Bld) [#/Vol] 0.1 10*3/uL Normal 0.0-0.4 [facility]; [facility] Work Phone: Eosinophils/100 WBC (Bld) 2 % Normal [facility]; [facility] Work Phone: Erythrocyte distribution width (RBC) [Ratio] 11.6 % Abnormal 11.7-15.4 [facility]; [facility] Work Phone: Hematocrit (Bld) [Volume fraction] 44.9 % Normal 34.0-46.6 [facility]; [facility] Work Phone: Hemoglobin (Bld) [Mass/Vol] 14.6 g/dL Normal 11.1-15.9 [facility]; [facility] Work Phone: Immature granulocytes (Bld) [#/Vol] 0.0 10*3/uL Normal 0.0-0.1 [facility]; [facility] Work Phone: Immature granulocytes/100 WBC (Bld) 0 % Normal [facility]; [facility] Work Phone: Lymphocytes (Bld) [#/Vol] 1.7 10*3/uL Normal 0.7-3.1 [facility]; [facility] Work Phone: Lymphocytes/100 WBC (Bld) 46 % Normal [facility]; [facility] Work Phone: MCH (RBC) [Entitic mass] 31.1 pg Normal 26.6-33.0 [facility]; [facility] Work Phone: MCHC (RBC) [Mass/Vol] 32.5 g/dL Normal 31.5-35.7 [facility] prehensive [facility]; [facility] Work Phone: MCV (RBC) [Entitic vol] 96 fL Normal 79-97 [facility]; [facility] Work Phone: Monocytes (Bld) [#/Vol] 0.2 10*3/uL Normal 0.1-0.9 [facility]; [facility] Work Phone: Monocytes/100 WBC (Bld) 7 % Normal [facility]; [facility] Work Phone: Neutrophils (Bld) [#/Vol] 1.6 10*3/uL Normal 1.4-7.0 [facility]; [facility] Work Phone: Neutrophils/100 WBC (Bld) 44 % Normal [facility]; [facility] Work Phone: Platelets (Bld) [#/Vol] 261 10*3/uL Normal 150-450 [facility]; [facility] Work Phone: RBC (Bld) [#/Vol] 4.70 10*6/uL Normal 3.77-5.28 [facility] ehensive [facility]; [facility] Work Phone: WBC (Bld) [#/Vol] 3.7 10*3/uL Normal 3.4-10.8 [facility]; [facility] Work Phone: HGB A1C ([id number])Ordered By: S ystem Nursing Teacher on 01-01-2023 HbA1c (Bld) [Mass fraction] 5.4 % Normal 4.8-5.6 [facility]; [facility] Work Phone: LIPID PANEL ([id number])Ordered B y: Histotechnician on 01-01-2023 Cholesterol [Mass/Vol] 135 mg/dL Normal 100-199 [facility]; [facility] Work Phone: Cholesterol in HDL [Mass/Vol] 61 mg/dL Normal [facility]; [facility] Work Phone: Triglyceride [Mass/Vol] 63 mg/dL Normal 0-149 [facility]; [facility] Work Phone: LIPID PANEL ([id number]) 13 mg/dL Normal 5-40 [facility]; [facility] Work Phone: LIPID PANEL ([id number]) 61 mg/dL Normal 0-99 [facility]; [facility] Work Phone: LIPID PANEL ([id number]) 1.0 {ratio} Normal 0.0-3.2 [facility]; [facility] Work Phone: METABOLIC PANEL, COMPREHENSI VE ([id number])Ordered By: Histotechnician on 01-01-2023 Albumin [Mass/Vol] 4.2 g/dL Normal 3.8-4.9 [facility]; [facility] Work Phone: Albumin/Globulin [Mass ratio] 1.6 {ratio} Normal 1.2-2.2 [facility]; [facility] Work Phone: ALP [Catalytic activity/Vol] 75 U/L Normal 44-121 [facility]; [facility] Work Phone: ALT [Catalytic activity/Vol] 22 U/L Normal 0-32 [facility]; [facility] Work Phone: AST [Catalytic activity/Vol] 22 U/L Normal 0-40 [facility]; [facility] Work Phone: Bilirubin [Mass/Vol] 0.7 mg/dL Normal 0.0-1.2 [facility]; [facility] Work Phone: Calcium [Mass/Vol] 9.2 mg/dL Normal 8.7-10.2 [facility]; [facility] Work Phone: Chloride [Moles/Vol] 103 mmol/L Normal 96-106 [facility]; [facility] Work Phone: CO2 [Moles/Vol] 23 mmol/L Normal 20-29 [facility]; [facility] Work Phone: Creatinine [Mass/Vol] 1.02 mg/dL Abnormal 0.57-1.00 [facility] pre[facility]ive [facility]; [facility] Work Phone: Globulin (S) [Mass/Vol] 2.6 g/dL Normal 1.5-4.5 [facility]; [facility] Work Phone: Glucose [Mass/Vol] 104 mg/dL Abnormal 70-99 [facility]; [facility] Work Phone: Potassium [Moles/Vol] 5.2 mmol/L Normal 3.5-5.2 [facility]ive [facility]; [facility] Work Phone: Protein [Mass/Vol] 6.8 g/dL Normal 6.0-8.5 [facility]; [facility] Work Phone: Sodium [Moles/Vol] 142 mmol/L Normal 134-144 [facility]; [facility] Work Phone: Urea nitrogen [Mass/Vol] 18 mg/dL Normal 6-24 [facility]; [facility] Work Phone: Urea nitrogen/Creatinine [Mass ratio] 18 mg/mg Normal 9-23 [facility]; [facility] Work Phone: METABOLIC PANEL, COMPREHENSIVE ([id number]) 67 mL/min/1.73 Normal [facility]; [facility] Work Phone: TSH ([id number])Ordered By: Usman Becerra on 01-01-2023 TSH Qn 2.250 {uIU/mL} Normal 0.450-4.500 [facility]; [facility] Work Phone: EMMA SCREENINGon 08-21-2022 [facility] ECHOon 07-10-[address] [facility] [address] CHEST W/O CONTRASTon 02-17 CT CHEST W/O CONTRAST EXAMINATION: CT CH EST W/O CONTRAST 02/27/2022 01:04 PM CLINICAL HISTORY: Reason for Exam: Pulmonary hypertension ASSOCIATED DIAGNOSIS: Pulmonary hypertension, unspecified (HCC) ORDERING PROVIDER: MAGGIE COONEY TECHNOLOGISTS NOTE: COMPARISON: None TECHNIQUE: Contiguous axial images of the chest without contrast were obtained from above the lung apices through the level of the adrenal glands. 2D sagittal and coronal reconstructions were obtained from the axial data. FINDINGS: Cardiovasculature: Heart is normal in size. The main pulmonary artery is normal in caliber measuring 2.2 cm in diameter. The aorta is also normal in caliber. No atherosclerotic calcifications are appreciated on the current nongated CT. Mediastinum/Pericardiu m: Unremarkable Pleura: Unremarkable Central Airways: Widely patent. Lungs: No focal consolidation. Nodules: There is a 5 x 6 mm solid pulmonary nodule in the lingula (image 80, series 3). There is a 5 mm pleural-based nodule in the left lower lobe (image 94, series 3). There are several tiny pulmonary nodules measuring less than 3 mm in the right upper and middle lobes (for example see image 63 of series 3). There are several additional pleural-based nodules measuring less than 3 mm in diameter. Lymph Nodes: No thoracic lymphadenopathy is evident. Included images of the upper abdomen: 9 mm peripheral low-attenuation lesion in the right hepatic lobe (image 144, series 3), incompletely characterized on the current exam. Visualized musculoskeletal structures: There is mild endplate spurring in the spine. No acute fracture or destructive osseous lesion is identified. IMPRESSION: 1. No CT evidence of pulmonary hypertension. Main pulmonary artery is not enlarged. 2. Several small pulmonary nodules measuring up to 6 mm in greatest diameter. Based on the 2017 Fleischner Society guidelines, no follow is necessary if this patient is considered low risk for lung cancer. If the patient is considered high risk, a follow-up CHEST W/O CONTRAST (code: [id number]) is optional at 12 months. 3. Additional incidental findings, as above. MACRO: None Normal [facility] Basophil percentageon 2021 Bilirubin [Mass/Vol] 0.80 mg/dL 0.20-1.00 [facility] Work Phone: Comment on above: For patients on eltr ombopag therapy, use of [employer] [place] TBIL is not recommended. Chloride [Moles/Vol] 107 mmol/L 98-107 [facility] Work Phone: Potassium [Moles/Vol] 3.9 mmol/L 3.5-5.1 [facility] Work Phone: Protein [Mass/Vol] 6.6 g/dL 6.4-8.2 [facility] Work Phone: Sodium [Moles/Vol] 139 mmol/L 136-145 [facility] Work Phone: Direct bilirubinon 2 Bilirubin.direct [Mass/Vol] 0.22 mg/dL 0.00-0.30 [facility] Work Phone: Erythrocyte sedimentation ra renate 02-20-2022 ESR (Bld) [Velocity] 10 mm/h 0-30 [facility] Work Phone: Laboratory - Chemistry and C hemistry - challengeon 02-20-2022 ALP [Catalytic activity/Vol] 63 U/L 45-117 [facility] Work Phone: ALT [Catalytic activity/Vol] 25 U/L 13-56 [facility] Work Phone: CO2 [Moles/Vol] 26.0 mmol/L 21.0-32.0 [facility] Work Phone: Globulin (S) [Mass/Vol] 3.4 g/dL 2.2-4.2 [facility] Work Phone: Natriuretic peptide B (Bld) [Mass/Vol] 35.8 pg/mL 0-100 [facility] Work Phone: No Panel Informationon 02-20 Estimated GFR (MDRD) Amer 98 mL/min >60 [facility] Work Phone: Comment on above: GFR Calc Estimated GFR (MDRD) Non-Af Amer 81 mL/min >60 [facility] Work Phone: Comment on above: Non- GFR Calc Serum or plasma C reactive p rotein measurement (mass/volume)on 02-20-2022 CRP [Mass/Vol] mg/L 0.0-3.0 [facility] Work Phone: Comment on above: C-Reactive Protein ( CRP) provides useful information for thediagnosis, therapy and monitoring of inflammatory processesand associated diseases. For the evaluation of Relative Riskfor Cardiovascular Disease, a High Sensitivity CRP (HSCRP)should be ordered. Serum or plasma albumin jt urement (mass/volume)on 02-20-2022 Albumin [Mass/Vol] 3.2 g/dL 3.2-5.0 [facility] Work Phone: Serum or plasma creatinine m easurement (mass/volume)on 02-20-2022 Creatinine [Mass/Vol] 0.80 mg/dL 0.55-1.02 [facility] Work Phone: Comment on above: The validity of the calculated GFR & GFRAA in patients over 70 years has not been determined. Clinical correlation is essential. Serum or plasma urea nitroge n measurement (mass/volume)on 02-20-2022 Urea nitrogen [Mass/Vol] 17 mg/dL 7-18 [facility] Work Phone: Serum rheumatoid factor dete ctionon 02-20-2022 Rheumatoid factor Ql (S) < 10.0 IU/mL <15 [facility] Work Phone: Thin prep Papanicolaou smear with manual screeningon 02-20-2022 Thin prep Papanicolaou smear with manual screening 17 U/L 15-37 [facility] Work Phone: Thin prep Papanicolaou smear with manual screening 6 5-15 [facility] Work Phone: CBC W/AUTO DIFF WBC ([id number])O rdered By: Histotechnician on 12-12-2021 Basophils (Bld) [#/Vol] 0.1 10*3/uL Normal 0.0-0.2 [facility] Work Phone: Comment on above: PATIENT WAS FASTINGP ERFORMED BY: DramaFeverFormerly [facility] [id number] Basophils/100 WBC (Bld) 1 % Normal [facility]; [facility] Work Phone: Comment on above: PATIENT WAS FASTINGP ERFORMED BY: DramaFeverFormerly [facility] [id number] Eosinophils (Bld) [#/Vol] 0.0 10*3/uL Normal 0.0-0.4 [facility]; [facility] Work Phone: Comment on above: PATIENT WAS FASTINGP ERFORMED BY: PAT Labcosarah OlveraDghcuw8075 [address] RoadDublin [place] [id number] Eosinophils/100 WBC (Bld) 1 % Normal [facility]; [facility] Work Phone: Comment on above: PATIENT WAS FASTINGP ERFORMED BY: CB [facility] Tapbbf9991 [address] [facility]in [place] [id number] Erythrocyte distribution width (RBC) [Ratio] 11.6 % Abnormal 11.7-15.4 [facility]; [facility] Work Phone: Comment on above: PATIENT WAS FASTINGP ERFORMED BY: [facility] Xphmwo8098 [address] [facility] [id number] Hematocrit (Bld) [Volume fraction] 45.9 % Normal 34.0-46.6 [facility]; [facility] Work Phone: Comment on above: PATIENT WAS FASTINGP ERFORMED BY: [facility] Fwcmgh3575 [address] [facility]in [place] [id number] Hemoglobin (Bld) [Mass/Vol] 15.3 g/dL Normal 11.1-15.9 [facility]; [facility] Work Phone: Comment on above: PATIENT WAS FASTINGP ERFORMED BY: [facility] Vayjno9049 [address] [facility] [place] [id number] Immature granulocytes (Bld) [#/Vol] 0.0 10*3/uL Normal 0.0-0.1 [facility]; [facility] Work Phone: Comment on above: PATIENT WAS FASTINGP ERFORMED BY: CB [facility] Iyxogf9150 [address] RoadDublin [place] [id number] Immature granulocytes/100 WBC (Bld) 0 % Normal [facility]; [facility] Work Phone: Comment on above: PATIENT WAS FASTINGP ERFORMED BY: [facility] Snjapy2875 [address] RoadSentara Albemarle Medical Centerin [place] [id number] Lymphocytes (Bld) [#/Vol] 1.5 10*3/uL Normal 0.7-3.1 [facility]; [facility] Work Phone: Comment on above: PATIENT WAS FASTINGP ERFORMED BY: PAT Damianimssy Cdiqod1672 [address] [facility] [id number] Lymphocytes/100 WBC (Bld) 29 % Normal [facility]; [facility] Work Phone: Comment on above: PATIENT WAS FASTINGP ERFORMED BY: PAT [facility] Iwesja5869 [address] [facility] [id number] MCH (RBC) [Entitic mass] 31.2 pg Normal 26.6-33.0 [facility]; [facility] Work Phone: Comment on above: PATIENT WAS FASTINGP ERFORMED BY: PAT [facility] Pkttab1071 [facility] [id number] MCHC (RBC) [Mass/Vol] 33.3 g/dL Normal 31.5-35.7 [facility] prehensive Internal Medicine; [facility] Work Phone: Comment on above: PATIENT WAS FASTINGP ERFORMED BY: PAT Sal[facility]estern [facility] Yaxdyj4036 [address] [facility] [id number] MCV (RBC) [Entitic vol] 94 fL Normal 79-97 [facility]; [facility] Work Phone: Comment on above: PATIENT WAS FASTINGP ERFORMED BY: [facility]University [facility]6370 [address] [facility] [id number] Monocytes (Bld) [#/Vol] 0.3 10*3/uL Normal 0.1-0.9 [facility]; [facility] Work Phone: Comment on above: PATIENT WAS FASTINGP ERFORMED BY: PAT [facility] Pxqrxe8960 [address] [facility] [id number] Monocytes/100 WBC (Bld) 6 % Normal [facility]; [facility] Work Phone: Comment on above: PATIENT WAS FASTINGP ERFORMED BY: PAT Labmissy BuchananJxkrxh8070 [address] RoadDublin [place] [id number] Neutrophils (Bld) [#/Vol] 3.4 10*3/uL Normal 1.4-7.0 [facility]; [facility] Work Phone: Comment on above: PATIENT WAS FASTINGP ERFORMED BY: PAT Labcosarah Giwupc8103 [address]Dublin [place] [id number] Neutrophils/100 WBC (Bld) 63 % Normal [facility]; [facility] Work Phone: Comment on above: PATIENT WAS FASTINGP ERFORMED BY: PAT [facility] Qdfyqu4389 [address] RoadDublin [place] [id number] Platelets (Bld) [#/Vol] 302 10*3/uL Normal 150-450 [facility]; [facility] Work Phone: Comment on above: PATIENT WAS FASTINGP ERFORMED BY: PAT [facility] Gndxhb7688 [address] RoadDublin [place] [id number] RBC (Bld) [#/Vol] 4.91 10*6/uL Normal 3.77-5.28 Compr ehensive Internal Medicine; [facility] Work Phone: Comment on above: PATIENT WAS FASTINGP ERFORMED BY: PAT [facility] Wcochv2531 [address]Dublin [place] [id number] WBC (Bld) [#/Vol] 5.4 10*3/uL Normal 3.4-10.8 Compre [facility]; [facility] Work Phone: Comment on above: PATIENT WAS FASTINGP ERFORMED BY: PAT [facility] Ynkpfj2800 [address] RoadDublin [place] [id number] HGB A1C ([id number])Ordered By: S ystem Nursing Teacher on 12-12-2021 HbA1c (Bld) [Mass fraction] 5.3 % Normal 4.8-5.6 [facility]; [facility] Work Phone: Comment on above: . Prediabetes: 5.7 - 6.4 Diabetes: >6.4 Glycemic control for adults with diabetes: <7.0 PATIENT WAS FASTINGP ERFORMED BY: PAT [facility] Vqfyoy6893 [address] RoadDublin [place] [id number] LIPID PANEL ([id number])Ordered B y: Histotechnician on 12-12-2021 Cholesterol [Mass/Vol] 163 mg/dL Normal 100-199 [facility] centerensive [facility]; [facility] Work Phone: Comment on above: PATIENT WAS FASTINGP ERFORMED BY: PAT Labmissy BuchananUluxvg6659 [address] RoadDublin [place] [id number] Cholesterol in HDL [Mass/Vol] 71 mg/dL Normal [facility]; [facility] Work Phone: Comment on above: PATIENT WAS FASTINGP ERFORMED BY: PAT Labmissy BuchananGesbao2498 [address]blin [place] [id number] Triglyceride [Mass/Vol] 107 mg/dL Normal 0-149 [facility]; [facility] Work Phone: Comment on above: PATIENT WAS FASTINGP ERFORMED BY: PAT Buchananlin6370 [address]blin [place] [id number] LIPID PANEL (01501) 19 mg/dL Normal 5-40 Compr ensive [facility]; [facility] Work Phone: Comment on above: PATIENT WAS FASTINGP ERFORMED BY: PAT Labmissy BuchananEulbdh6427 [address] RoadDublin [place] [id number] LIPID PANEL (96507) 73 mg/dL Normal 0-99 Compr ensive [facility]; [facility] Work Phone: Comment on above: PATIENT WAS FASTINGP ERFORMED BY: PAT Labmissy BuchananClpqtq[address] [facility]blin [place] [id number] LIPID PANEL (67555) 1.0 {ratio} Normal 0.0-3.2 Comp [facility] hospitalensive [facility]; [facility] Work Phone: Comment on above: LDL/HDL Ratio Men Wo men 1/2 Avg.Risk 1.0 1.5 Avg.Risk 3.6 3.2 2X Avg.Risk 6.2 5.0 3X Avg.Risk 8.0 6.1 PATIENT WAS FASTINGP ERFORMED BY: PAT Labmissy Kagvhv8533 [address] [facility]in [place] [id number] METABOLIC PANEL, COMPREHENSI VE ([id number])Ordered By: Histotechnician on 12-12-2021 Albumin [Mass/Vol] 4.5 g/dL Normal 3.8-4.8 [facility]; [facility] Work Phone: Comment on above: PATIENT WAS FASTINGP ERFORMED BY: [facility] Wiffei7937 [address]blin [place] [id number] Albumin/Globulin [Mass ratio] 1.7 {ratio} Normal 1.2-2.2 [facility]; [facility] Work Phone: Comment on above: PATIENT WAS FASTINGP ERFORMED BY: CB [facility] Gbtafz5850 [address] [facility]bl[facility] [place] [id number] ALP [Catalytic activity/Vol] 58 U/L Normal 44-121 [facility]; [facility] Work Phone: Comment on above: PATIENT WAS FASTINGP ERFORMED BY: [facility] Rkohag9806 [address] [facility]in [place] [id number] ALT [Catalytic activity/Vol] 16 U/L Normal 0-32 [facility]; [facility] Work Phone: Comment on above: PATIENT WAS FASTINGP ERFORMED BY: [facility] Qqsomy9162 [address] [facility]in [place] [id number] AST [Catalytic activity/Vol] 19 U/L Normal 0-40 [facility]; [facility] Work Phone: Comment on above: PATIENT WAS FASTINGP ERFORMED BY: CB [facility] Fvqbat4607 [address] [facility]in [place] [id number] Bilirubin [Mass/Vol] 0.7 mg/dL Normal 0.0-1.2 [facility]; [facility] Work Phone: Comment on above: PATIENT WAS FASTINGP ERFORMED BY: CB [facility] Oxymns8459 [address] [facility] [place] [id number] Calcium [Mass/Vol] 9.6 mg/dL Normal 8.7-10.2 [facility]; [facility] Work Phone: Comment on above: PATIENT WAS FASTINGP ERFORMED BY: PAT [facility] Vpvzet4974 [address] RoadDublin [place] [id number] Chloride [Moles/Vol] 101 mmol/L Normal 96-[address] [facility] rehensive Internal Medicine; [facility] Work Phone: Comment on above: PATIENT WAS FASTINGP ERFORMED BY: PAT [facility] Ufwumx2841 [address] RoadDublin [place] [id number] CO2 [Moles/Vol] 22 mmol/L Normal 20-29 [facility]; [facility] Work Phone: Comment on above: PATIENT WAS FASTINGP ERFORMED BY: PAT [facility] Pgxypt7682 [address] RoadDublin [place] [id number] Creatinine [Mass/Vol] 1.00 mg/dL Normal 0.57-1.00 [facility]; [facility] Work Phone: Comment on above: PATIENT WAS FASTINGP ERFORMED BY: PAT [facility] Xbjmfe0877 [address] RoadSentara Albemarle Medical Centerin [place] [id number] GFR/1.73 sq M.predicted among non-blacks MDRD (S/P/Bld) [Vol rate/Area] 69 mL/min/{1.73_m2} Normal Comprehens e Internal Medicine; [facility] Work Phone: Comment on above: PATIENT WAS FASTINGP ERFORMED BY: PAT [facility] Edwaxc5586 [address] RoadDuin [place] [id number] Globulin (S) [Mass/Vol] 2.7 g/dL Normal 1.5-4.5 [facility]; [facility] Work Phone: Comment on above: PATIENT WAS FASTINGP ERFORMED BY: CB [facility] Xbllgt2173 [address] RoadDublin [place] [id number] Glucose [Mass/Vol] 106 mg/dL Abnormal 65-99 [facility]; [facility] Work Phone: Comment on above: PATIENT WAS FASTINGP ERFORMED BY: PAT [facility] Sduqqo9770 [address] RoadDublin [place] [id number] Potassium [Moles/Vol] 4.8 mmol/L Normal 3.5-5.2 [facility] prehensive Internal Medicine; [facility] Work Phone: Comment on above: PATIENT WAS FASTINGP ERFORMED BY: PAT [facility] Ppciub8897 [address] RoadDublin [place] [id number] Protein [Mass/Vol] 7.2 g/dL Normal 6.0-8.5 [facility]; [facility] Work Phone: Comment on above: PATIENT WAS FASTINGP ERFORMED BY: CB [facility] Wrtbmr3218 [address] RoadDublin [place] [id number] Sodium [Moles/Vol] 139 mmol/L Normal 134-144 [facility]; [facility] Work Phone: Comment on above: PATIENT WAS FASTINGP ERFORMED BY: PAT [facility] Wqdtio6891 [address] RoadDuin [place] [id number] Urea nitrogen [Mass/Vol] 16 mg/dL Normal 6-24 [facility]; [facility] Work Phone: Comment on above: PATIENT WAS FASTINGP ERFORMED BY: CB [facility] Qtgjtq2890 [address] RoadDublin [place] [id number] Urea nitrogen/Creatinine [Mass ratio] 16 mg/mg Normal 9-23 [facility]; [facility] Work Phone: Comment on above: PATIENT WAS FASTINGP ERFORMED BY: CB [facility] Xpvrwi1145 [address] [facility]bl[facility] [place] [id number] METABOLIC PANEL, COMPREHENSIVE ([id number]) 69 mL/min/1.73 Normal Comprehens [facility]; [facility] Work Phone: MICROALBUMINOrdered By: Syst em Nursing Teacher on 12-12-2021 Albumin DL <= 20 mg/L (U) [Mass/Vol] 4.6 ug/mL Normal [facility]; [facility] Work Phone: Comment on above: PATIENT WAS FASTINGP ERFORMED BY: CB [facility] Kivzna9390 [address]Dublin [place] [id number] Albumin/Creatinine (U) [Mass ratio] 3 {mg/g_creat} Normal 0-29 [facility]; [facility] Work Phone: Comment on above: Normal: 0 - 29 Moder ately increased: 30 - 300 Severely increased: >300 PATIENT WAS FASTINGP ERFORMED BY: PAT Labmissy BuchananFkuitd4476 [address] RoadDublin [place] [id number] Creatinine (U) [Mass/Vol] 133.8 mg/dL Normal [facility]; [facility] Work Phone: Comment on above: PATIENT WAS FASTINGP ERFORMED BY: PAT [facility] Kilium2744 [address] RoadDublin [place] [id number] TSH (THYROID STIMULATING HOR ALEXEY) ([id number])Ordered By: Histotechnician on 12-12-2021 TSH Qn 1.970 {uIU/mL} Normal 0.450-4.500 Comprehen [facility]; [facility] Work Phone: Comment on above: PATIENT WAS FASTINGP ERFORMED BY: PAT Buchananlin6370 [address]bl[address] [place] [id number] URINALYSIS ([id number])Ordered By : Histotechnician on 12-12-2021 Appearance (U) Clear Normal Comprehens [facility]; [facility] Work Phone: Comment on above: PATIENT WAS FASTINGP ERFORMED BY: PAT Buchananlin6370 [address]Dublin [place] [id number] Bilirubin Ql (U) Negative Normal Comprehe nsive Internal Medicine; [facility] Work Phone: Comment on above: PATIENT WAS FASTINGP ERFORMED BY: PAT Labmissy BuchananFllzvj5419 [address] RoadDublin [place] [id number] Color (U) Yellow Normal [facility]; [facility] Work Phone: Comment on above: PATIENT WAS FASTINGP ERFORMED BY: PAT Labcosarah BuchananXhqert0564 [address]Dublin [place] [id number] Glucose Ql (U) Negative Normal Comprehens [facility]; [facility] Work Phone: Comment on above: PATIENT WAS FASTINGP ERFORMED BY: PAT Labmissy BuchananIzoyhm9142 [address] RoadSentara Albemarle Medical Centerin [place] [id number] Hemoglobin Ql (U) Negative Normal Compreh ensive Internal Medicine; [facility] Work Phone: Comment on above: PATIENT WAS FASTINGP ERFORMED BY: PAT Olvera6370 [address]Dublin [place] [id number] Ketones Ql (U) Negative Normal Comprehens [facility]; [facility] Work Phone: Comment on above: PATIENT WAS FASTINGP ERFORMED BY: PAT Carolina Otmenx7324 [address] [facility]in [place] [id number] Leukocyte esterase Test strip Ql (U) Negative Normal [facility]; [facility] Work Phone: Comment on above: PATIENT WAS FASTINGP ERFORMED BY: PAT Christiano Buchananlin[address] [facility]in [place] [id number] Microscopic observation LM Nom (Urine sed) MICNIP Normal [facility]; [facility] Work Phone: Comment on above: Microscopic not justo cated and not performed. PATIENT WAS FASTINGP ERFORMED BY: PAT Carolina Wuojww8[address] [facility]in [place] [id number] Nitrite Ql (U) Negative Normal Comprehens [facility]; [facility] Work Phone: Comment on above: PATIENT WAS FASTINGP ERFORMED BY: PAT Christiano Buchananlin6[address] [facility] [id number] pH (U) 6.5 [pH] Normal 5.0-7.5 [facility]; [facility] Work Phone: Comment on above: PATIENT WAS FASTINGP ERFORMED BY: PAT [facility] Ecayhr6[address] [facility]in [place] [id number] Protein Ql (U) Negative Normal Comprehens [facility]; [facility] Work Phone: Comment on above: PATIENT WAS FASTINGP ERFORMED BY: PAT Carolina Vbxzfq7446 [address] [facility]in [place] [id number] Specific gravity (U) [Rel density] 1.021 1 Normal 1.005-1.030 [facility]; [facility] Work Phone: Comment on above: PATIENT WAS FASTINGP ERFORMED BY: [facility]adUniversity [facility] Health6370 [facility] [id number] Urobilinogen (U) [Mass/Vol] 1.0 mg/dL Normal 0.2-1.0 [facility]; [facility] Work Phone: Comment on above: PATIENT WAS FASTINGP ERFORMED BY: [facility]6370 [facility] [id number] Absolute lymphocyte counton 12-07-2021 Lymphocytes Auto (Unsp spec) [#/Vol] 2.06 10*3/uL 0.83-4.51 [facility] Work Phone: Basophil percentageon 2021 Basophils/100 WBC (Bld) 1.3 % 0-1 [facility] Work Phone: Chloride [Moles/Vol] 109 mmol/L 98-107 [facility] Work Phone: Eosinophils/100 WBC (Bld) 1.1 % 0-5 [facility] Work Phone: Glucose [Mass/Vol] 209 mg/dL 74-106 [facility] Work Phone: Comment on above: Glucose result great er than or equal to 200 mg/dLsuggests DIABETES MELLITUS per A.D.A. criteria. Neutrophils (Bld) [#/Vol] 2.1 10*3/uL 2.0-7.7 [facility] Work Phone: Neutrophils/100 WBC (Bld) 45.7 % 47-70 [facility] Work Phone: Potassium [Moles/Vol] 3.9 mmol/L 3.5-5.1 [facility] Work Phone: Sodium [Moles/Vol] 140 mmol/L 136-145 [facility] Work Phone: WBC (Bld) [#/Vol] 4.6 10*3/uL 4.4-11.0 [facility] Work Phone: Blood erythrocytes count (nu mber/volume)on 12-07-2021 RBC (Bld) [#/Vol] 4.35 10*6/uL 4.2-5.4 [facility] Work Phone: Blood hemoglobin measurement (mass/volume)on 12-07-2021 Hemoglobin (Bld) [Mass/Vol] 14.0 g/dL 12.0-15.0 [facility] Work Phone: Blood lymphocytes/100 leukoc yteson 12-07-2021 Lymphocytes/100 WBC (Bld) 44.6 % 19-41 [facility] Work Phone: Blood monocytes/100 leukocyt eson 12-07-2021 Monocytes/100 WBC (Bld) 7.1 % 0-10 [facility] Work Phone: Blood platelet mean volumeon 12-07-2021 Platelet mean volume (Bld) [Entitic vol] 9.5 fL 6.2-12.0 [facility] Work Phone: Determination of erythrocyte mean corpuscular volume (MCV)on 12-07-2021 MCV (RBC) [Entitic vol] 93.8 fL 81-99 [facility] Work Phone: Hematocrit Auto (Bld) [Volum e fraction]on 12-07-2021 Hematocrit (Bld) [Volume fraction] 40.8 % 37-47 [facility] Work Phone: Laboratory - Chemistry and C hemistry - challengeon 12-07-2021 CO2 [Moles/Vol] 26.0 mmol/L 21.0-32.0 [facility] Work Phone: Urea nitrogen/Creatinine [Mass ratio] 16.0 mg/mg 10-20 [facility] Work Phone: Laboratory - Hematology and Cell countson 12-07-2021 Erythrocyte distribution width (RBC) [Entitic vol] 41.5 fL 35.1-43.9 [facility] Work Phone: Erythrocyte distribution width (RBC) [Ratio] 11.9 % 11.6-14.6 [facility] Work Phone: Immature granulocytes/100 WBC (Bld) 0.200 % 0.0-0.9 [facility] Work Phone: Comment on above: IG% - Immature Granu locytes (promyelocytes, myelocytes and metamyelocytes) > 1% indicates that a LEFT SHIFT is Present. MCH (RBC) [Entitic mass] 32.2 pg 27.0-32.0 [facility] Work Phone: Nucleated RBC/100 WBC (Bld) [Ratio] 0 % 0-5 [facility] Work Phone: MCHC Auto (RBC) [Mass/Vol]on 12-07-2021 MCHC (RBC) [Mass/Vol] 34.3 g/dL 32-36 [facility] Work Phone: No Panel Informationon 12-07 Estimated Creatinine Clearance Calc 57.13 ml/min [facility] Work Phone: Estimated GFR (MDRD) Amer 71 mL/min >60 [facility] Work Phone: Comment on above: GFR Calc Estimated GFR (MDRD) Non-Af Amer 58 mL/min >60 [facility] Work Phone: Comment on above: Non- GFR Calc Platelets bldon 12-07-2021 Platelets (Bld) [#/Vol] 264 10*3/uL 150-450 [facility] Work Phone: Serum or plasma calcium jt urement (mass/volume)on 12-07-2021 Calcium [Mass/Vol] 8.5 mg/dL 8.5-10.1 [facility] Work Phone: Serum or plasma creatinine m easurement (mass/volume)on 12-07-2021 Creatinine [Mass/Vol] 1.06 mg/dL 0.55-1.02 [facility] Work Phone: Comment on above: The validity of the calculated GFR & GFRAA in patients over 70 years has not been determined. Clinical correlation is essential. Serum or plasma urea nitroge n measurement (mass/volume)on 12-07-2021 Urea nitrogen [Mass/Vol] 17 mg/dL 7-18 [facility] Work Phone: Thin prep Papanicolaou smear with manual screeningon 12-07-2021 Thin prep Papanicolaou smear with manual screening 5 5-15 [facility] Work Phone: EMMA SCREENINGon 08-15-2021 [facility] HEPATIC FUNCTION PANEL (8007 [id number])Ordered By: Histotechnician on 04-25-2021 Albumin [Mass/Vol] 4.0 g/dL Normal 3.8-4.8 [facility]; [facility] Work Phone: Comment on above: PATIENT NOT FASTINGP ERFORMED BY: CB [facility] Efthcu8203 [address]Dublin [place] [id number] ALP [Catalytic activity/Vol] 67 U/L Normal 44-121 [facility]; [facility] Work Phone: Comment on above: Please note refere nce interval change PATIENT NOT FASTINGP ERFORMED BY: CB [facility] Etnwzb4370 [address] RoadDublin [place] [id number] ALT [Catalytic activity/Vol] 16 U/L Normal 0-32 [facility]; [facility] Work Phone: Comment on above: PATIENT NOT FASTINGP ERFORMED BY: CB [facility] Yaodry7449 [address] RoadDublin [place] [id number] AST [Catalytic activity/Vol] 16 U/L Normal 0-40 [facility]; [facility] Work Phone: Comment on above: PATIENT NOT FASTINGP ERFORMED BY: CB [facility] Fpnbdm4257 [address] RoadDublin [place] [id number] Bilirubin [Mass/Vol] 0.6 mg/dL Normal 0.0-1.2 [facility]; [facility] Work Phone: Comment on above: PATIENT NOT FASTINGP ERFORMED BY: CB [facility] Yibhec3958 [address] RoadDublin [place] [id number] Bilirubin.direct [Mass/Vol] 0.21 mg/dL Normal 0.00-0.40 [facility]; [facility] Work Phone: Comment on above: PATIENT NOT FASTINGP ERFORMED BY: PAT Labpatriciarp Chdxjf3723 [address] RoadDublin [place] [id number] Protein [Mass/Vol] 6.7 g/dL Normal 6.0-8.5 [facility]; [facility] Work Phone: Comment on above: PATIENT NOT FASTINGP ERFORMED BY: PAT [facility] Scriii8434 [address] [facility] [id number] HGB A1C (20782)Ordered By: S ystem Nursing Teacher on 04-25-2021 HbA1c (Bld) [Mass fraction] 5.3 % Normal 4.8-5.6 [facility]; [facility] Work Phone: Comment on above: . Prediabetes: 5.7 - 6.4 Diabetes: >6.4 Glycemic control for adults with diabetes: <7.0 PATIENT NOT FASTINGP ERFORMED BY: PAT [facility] Xrwvkz3417 [address] [facility] [id number] LIPID PANEL ([id number])Ordered B y: Histotechnician on 04-25-2021 Cholesterol [Mass/Vol] 149 mg/dL Normal 100-199 [facility] Internal Medicine; [facility] Work Phone: Comment on above: PATIENT NOT FASTINGP ERFORMED BY: CB [facility] Jnlgpe0220 [address] [facility] [id number] Cholesterol in HDL [Mass/Vol] 64 mg/dL Normal [facility]; [facility] Work Phone: Comment on above: PATIENT NOT FASTINGP ERFORMED BY: CB [facility] Xvdreu[address]74 [address] [facility]in [place] [id number] Triglyceride [Mass/Vol] 96 mg/dL Normal 0-149 [facility]; [facility] Work Phone: Comment on above: PATIENT NOT FASTINGP ERFORMED BY: CB [facility] Izblhz4397 [facility] [id number] LIPID PANEL ([id number]) 18 mg/dL Normal 5-40 [facility]; [facility] Work Phone: Comment on above: PATIENT NOT FASTINGP ERFORMED BY: PAT Carolinasarah Pljfud7362 [facility] [id number] LIPID PANEL (40993) 67 mg/dL Normal 0-99 [facility]; [facility] Work Phone: Comment on above: PATIENT NOT FASTINGP ERFORMED BY: PAT Olvera6370 [facility] [id number] LIPID PANEL (91095) 1.0 {ratio} Normal 0.0-3.2 [facility]; [facility] Work Phone: Comment on above: LDL/HDL Ratio Men Wo men 1/2 Avg.Risk 1.0 1.5 Avg.Risk 3.6 3.2 2X Avg.Risk 6.2 5.0 3X Avg.Risk 8.0 6.1 PATIENT NOT FASTINGP ERFORMED BY: PAT Olvera6370 [facility] [id number] LIPID PANEL (50863)Ordered B y: Histotechnician on 10-25-2020 Cholesterol [Mass/Vol] 131 mg/dL Normal 100-199 [facility]erens[facility]; [facility] Work Phone: Comment on above: PATIENT WAS FASTINGP ERFORMED BY: PAT Olvera6370 [facility] [id number]; appt 16 Cholesterol in HDL [Mass/Vol] 54 mg/dL Normal [facility]; [facility] Work Phone: Comment on above: PATIENT WAS FASTINGP ERFORMED BY: PAT LabMissy Olvera6370 [facility] [id number]; appt 7/16 Triglyceride [Mass/Vol] 100 mg/dL Normal 0-149 [facility]; [facility] Work Phone: Comment on above: PATIENT WAS FASTINGP ERFORMED BY: PAT LabMissy BuchananYaecst1841 [facility] [id number]; appt 11/01 LIPID PANEL (02255) 19 mg/dL Normal 5-40 [facility]; [facility] Work Phone: Comment on above: PATIENT WAS FASTINGP ERFORMED BY: CB [facility] Dylnfx3496 [address] RoadDublin [place] [id number]; appt 11/01 LIPID PANEL (16457) 58 mg/dL Normal 0-99 [facility]; [facility] Work Phone: Comment on above: PATIENT WAS FASTINGP ERFORMED BY: CB [facility] Qhfmsj0320 [address] RoadDublin [place] [id number]; appt 11/01 LIPID PANEL (44829) 1.1 {ratio} Normal 0.0-3.2 [facility]; [facility] Work Phone: Comment on above: LDL/HDL Ratio Men Wo men 1/2 Avg.Risk 1.0 1.5 Avg.Risk 3.6 3.2 2X Avg.Risk 6.2 5.0 3X Avg.Risk 8.0 6.1 PATIENT WAS FASTINGP ERFORMED BY: CB [facility] Fezixx3041 [address]Dublin [place] [id number]; appt 11/01 METABOLIC PANEL, COMPREHENSI VE (31087)Ordered By: Histotechnician on 10-25-2020 Albumin [Mass/Vol] 4.0 g/dL Normal 3.8-4.8 [facility] Internal Medicine; [facility] Work Phone: Comment on above: PATIENT WAS FASTINGP ERFORMED BY: CB [facility] Ddlinf9200 [address] RoadDublin [place] [id number] Albumin/Globulin [Mass ratio] 1.6 {ratio} Normal 1.2-2.2 [facility]; [facility] Work Phone: Comment on above: PATIENT WAS FASTINGP ERFORMED BY: CB [facility] Uparkb3581 [address] RoadDublin [place] [id number] ALP [Catalytic activity/Vol] 64 U/L Normal 48-121 [facility]; [facility] Work Phone: Comment on above: PATIENT WAS FASTINGP ERFORMED BY: CB [facility] Jduhkq1772 [address] RoadDublin [place] [id number] ALT [Catalytic activity/Vol] 21 U/L Normal 0-32 [facility]; [facility] Work Phone: Comment on above: PATIENT WAS FASTINGP ERFORMED BY: CB [facility] Kdsoui9056 [address] RoadDublin [place] [id number] AST [Catalytic activity/Vol] 14 U/L Normal 0-40 [facility]; [facility] Work Phone: Comment on above: PATIENT WAS FASTINGP ERFORMED BY: CB [facility] Dhtnvh7607 [address]Dublin [place] [id number] Bilirubin [Mass/Vol] 0.5 mg/dL Normal 0.0-1.2 Comp rehensive Internal Medicine; [facility] Work Phone: Comment on above: PATIENT WAS FASTINGP ERFORMED BY: CB [facility] Mdipef0007 [address] RoadDublin [place] [id number] Calcium [Mass/Vol] 8.9 mg/dL Normal 8.7-10.2 [facility] Internal [facility]; [facility] Work Phone: Comment on above: PATIENT WAS FASTINGP ERFORMED BY: CB [facility] Ajgbfb9206 [address] RoadDublin [place] [id number] Chloride [Moles/Vol] 105 mmol/L Normal 96-106 Comp rehensive Internal Medicine; [facility] Work Phone: Comment on above: PATIENT WAS FASTINGP ERFORMED BY: CB [facility] Awcaww2523 [address] RoadDublin [place] [id number] CO2 [Moles/Vol] 23 mmol/L Normal 20-29 [facility]; [facility] Work Phone: Comment on above: PATIENT WAS FASTINGP ERFORMED BY: CB [facility] Hffuue1005 [address] RoadDublin [place] [id number] Creatinine [Mass/Vol] 1.08 mg/dL Abnormal 0.57-1.00 [facility] prehensive Internal Medicine; [facility] Work Phone: Comment on above: PATIENT WAS FASTINGP ERFORMED BY: [facility]6370 [facility]in [place] [id number] GFR/1.73 sq M.predicted among blacks CKD-EPI (S/P/Bld) [Vol rate/Area] 70 mL/min/1.73 Normal [facility]; [facility] Work Phone: Comment on above: [facility] currently reports eGFR in compliance with the current recommendations of the National Kidney Foundation. [facility] will update reporting as new guidelines are published from the NKF-ASN Task force. PATIENT WAS FASTINGP ERFORMED BY: [facility]6370 [facility] [id number] GFR/1.73 sq M.predicted among non-blacks CKD-EPI (S/P/Bld) [Vol rate/Area] 61 mL/min/1.73 Normal [facility]; [facility] Work Phone: Comment on above: PATIENT WAS FASTINGP ERFORMED BY: [facility]6370 [facility] [id number] Globulin (S) [Mass/Vol] 2.5 g/dL Normal 1.5-4.5 [facility] Internal Medicine; [facility] Work Phone: Comment on above: PATIENT WAS FASTINGP ERFORMED BY: [facility] Oiqiuo0986 [facility] [id number] Glucose [Mass/Vol] 101 mg/dL Abnormal 65-99 [facility] Internal [facility]; [facility] Work Phone: Comment on above: PATIENT WAS FASTINGP ERFORMED BY: [facility] Dmfetm1977 [facility] [id number] Potassium [Moles/Vol] 4.1 mmol/L Normal 3.5-5.2 [facility] Internal Medicine; [facility] Work Phone: Comment on above: PATIENT WAS FASTINGP ERFORMED BY: [facility] Dussbg[address]75 [address] [facility] HospitalD[facility] [place] [id number] Protein [Mass/Vol] 6.5 g/dL Normal 6.0-8.5 [facility]; [facility] Work Phone: Comment on above: PATIENT WAS FASTINGP ERFORMED BY: PAT [facility] Jojpqd5667 [address] RoadDublin [place] [id number] Sodium [Moles/Vol] 139 mmol/L Normal 134-144 [facility]; [facility] Work Phone: Comment on above: PATIENT WAS FASTINGP ERFORMED BY: CB [facility] Teoafc7609 [address]Dublin [place] [id number] Urea nitrogen [Mass/Vol] 17 mg/dL Normal 6-24 [facility]; [facility] Work Phone: Comment on above: PATIENT WAS FASTINGP ERFORMED BY: CB [facility] Wfhxue1069 [address] RoadDublin [place] [id number] Urea nitrogen/Creatinine [Mass ratio] 16 mg/mg Normal 9-23 [facility]; [facility] Work Phone: Comment on above: PATIENT WAS FASTINGP ERFORMED BY: CB [facility] Iygake9073 [address] RoadDublin [place] [id number] LIPID PANEL ([id number])Ordered B y: Histotechnician on 04-18-2020 Cholesterol [Mass/Vol] 118 mg/dL Normal 100-199 Co [facility] Internal [facility]; [facility] Work Phone: Comment on above: PATIENT WAS FASTINGP ERFORMED BY: CB [facility] Xqjsno2866 [address] Roadblin [place] [id number] Cholesterol in HDL [Mass/Vol] 46 mg/dL Normal [facility]; [facility] Work Phone: Comment on above: PATIENT WAS FASTINGP ERFORMED BY: CB [facility] Ctnklx7461 [address]Dublin [place] [id number] Cholesterol in LDL/Cholesterol in HDL [Mass ratio] 1.1 {ratio} Normal 0.0-3.2 [facility]; [facility] Work Phone: Comment on above: LDL/HDL Ratio Men Wo men 1/2 Avg.Risk 1.0 1.5 Avg.Risk 3.6 3.2 2X Avg.Risk 6.2 5.0 3X Avg.Risk 8.0 6.1 PATIENT WAS FASTINGP ERFORMED BY: PAT Christiano Buchananlin6370 [facility] [id number] Triglyceride [Mass/Vol] 108 mg/dL Normal 0-149 [facility]; [facility] Work Phone: Comment on above: PATIENT WAS FASTINGP ERFORMED BY: PAT [place] Gtfpwz[address] [id number] LIPID PANEL (21154) 20 mg/dL Normal 5-40 Compr ensive Internal Medicine; [facility] Work Phone: Comment on above: PATIENT WAS FASTINGP ERFORMED BY: PAT [facility] Xpdzex48[address] [id number] LIPID PANEL (29959) 52 mg/dL Normal 0-99 [facility]; [facility] Work Phone: Comment on above: PATIENT WAS FASTINGP ERFORMED BY: PAT [address] [id number] LIPID PANEL (38350) 1.1 {ratio} Normal 0.0-3.2 [facility]; [facility] Work Phone: Comment on above: LDL/HDL Ratio Men Wo men 1/2 Avg.Risk 1.0 1.5 Avg.Risk 3.6 3.2 2X Avg.Risk 6.2 5.0 3X Avg.Risk 8.0 6.1 PATIENT WAS FASTINGP ERFORMED BY: PAT [facility]6370 [facility] [id number] CBC W/AUTO DIFF WBC (16397)O rdered By: Histotechnician on 03-29-2020 Basophils (Bld) [#/Vol] 0.0 {x10E3/uL} Normal 0.0-0.2 [facility]; [facility] Work Phone: Comment on above: PATIENT WAS FASTINGP ERFORMED BY: [place] 4046970 [facility] [id number] Basophils (Bld) [#/Vol] 0.0 10*3/uL Normal 0.0-0.2 [facility]; [facility] Work Phone: Comment on above: PATIENT WAS FASTINGP ERFORMED BY: PAT LabCosarah OlveraBwoole5119 [address]o RoadSentara Albemarle Medical Centerin [place] [id number] Basophils/100 WBC (Bld) 1 % Normal [facility]; [facility] Work Phone: Comment on above: PATIENT WAS FASTINGP ERFORMED BY: PAT [facility] Haegkb5560 [address] [facility] [id number] Eosinophils (Bld) [#/Vol] 0.1 {x10E3/uL} Normal 0.0-0.4 [facility]; [facility] Work Phone: Comment on above: PATIENT WAS FASTINGP ERFORMED BY: PAT [facility] Tcxxmu8462 [address] [facility] [id number] Eosinophils (Bld) [#/Vol] 0.1 10*3/uL Normal 0.0-0.4 [facility]; [facility] Work Phone: Comment on above: PATIENT WAS FASTINGP ERFORMED BY: PAT [facility] Xkxxgg1926 [address] [facility]in [place] [id number] Eosinophils/100 WBC (Bld) 1 % Normal [facility]; [facility] Work Phone: Comment on above: PATIENT WAS FASTINGP ERFORMED BY: PAT [facility] Onnuti2997 [address] [facility] [id number] Erythrocyte distribution width (RBC) [Ratio] 12.1 % Normal 11.7-15.4 [facility]; [facility] Work Phone: Comment on above: PATIENT WAS FASTINGP ERFORMED BY: [facility] Nmvign8932 [address] [facility]in [place] [id number] Hematocrit (Bld) [Volume fraction] 44.2 % Normal 34.0-46.6 [facility]; [facility] Work Phone: Comment on above: PATIENT WAS FASTINGP ERFORMED BY: [facility] Dwntzc4025 [address] [facility] [id number] Hemoglobin (Bld) [Mass/Vol] 14.8 g/dL Normal 11.1-15.9 [facility]; [facility] Work Phone: Comment on above: PATIENT WAS FASTINGP ERFORMED BY: PAT Sánchez Nyyfzy7832 [facility] [id number] Immature granulocytes (Bld) [#/Vol] 0.0 {x10E3/uL} Normal 0.0-0.1 [facility]; [facility] Work Phone: Comment on above: PATIENT WAS FASTINGP ERFORMED BY: DamianChristopher [place] 7571970 [facility] [id number] Immature granulocytes (Bld) [#/Vol] 0.0 10*3/uL Normal 0.0-0.1 [facility]; [facility] Work Phone: Comment on above: PATIENT WAS FASTINGP ERFORMED BY: Damian[address] [id number] Immature granulocytes/100 WBC (Bld) 0 % Normal [facility]; [facility] Work Phone: Comment on above: PATIENT WAS FASTINGP ERFORMED BY: [facility] Ptwupw5541 [facility] [id number] Lymphocytes (Bld) [#/Vol] 2.0 {x10E3/uL} Normal 0.7-3.1 [facility]; [facility] Work Phone: Comment on above: PATIENT WAS FASTINGP ERFORMED BY: DamianChristopher [place] 7571970 [facility] [id number] Lymphocytes (Bld) [#/Vol] 2.0 10*3/uL Normal 0.7-3.1 [facility]; [facility] Work Phone: Comment on above: PATIENT WAS FASTINGP ERFORMED BY: [facility] Wddbpa1497 [facility] [id number] Lymphocytes/100 WBC (Bld) 43 % Normal [facility]; [facility] Work Phone: Comment on above: PATIENT WAS FASTINGP ERFORMED BY: PAT [facility] Mdcbqf3506 [address] [facility]bl[facility] [place] [id number] MCH (RBC) [Entitic mass] 31.8 pg Normal 26.6-33.0 [facility]; [facility] Work Phone: Comment on above: PATIENT WAS FASTINGP ERFORMED BY: [facility] Orvfwe0755 [address] RoadDublin [place] [id number] MCHC (RBC) [Mass/Vol] 33.5 g/dL Normal 31.5-35.7 [facility] prehensive Internal Medicine; [facility] Work Phone: Comment on above: PATIENT WAS FASTINGP ERFORMED BY: [facility] Fyuygy9295 [address] RoadSentara Albemarle Medical Centerin [place] [id number] MCV (RBC) [Entitic vol] 95 fL Normal 79-97 [facility]; [facility] Work Phone: Comment on above: PATIENT WAS FASTINGP ERFORMED BY: [facility] Tzytcy1648 [address] [facility]in [place] [id number] Monocytes (Bld) [#/Vol] 0.3 {x10E3/uL} Normal 0.1-0.9 [facility]; [facility] Work Phone: Comment on above: PATIENT WAS FASTINGP ERFORMED BY: [facility] Okeqyd1227 [address] [facility]in [place] [id number] Monocytes (Bld) [#/Vol] 0.3 10*3/uL Normal 0.1-0.9 [facility] Internal Medicine; [facility] Work Phone: Comment on above: PATIENT WAS FASTINGP ERFORMED BY: [facility] Xrotyu0153 [address] [facility] [place] [id number] Monocytes/100 WBC (Bld) 7 % Normal [facility] Internal Medicine; [facility] Work Phone: Comment on above: PATIENT WAS FASTINGP ERFORMED BY: [facility] Mxrrne3659 [address] [facility] HospitalD[place] [id number] Neutrophils (Bld) [#/Vol] 2.2 {x10E3/uL} Normal 1.4-7.0 [facility]; [facility] Work Phone: Comment on above: PATIENT WAS FASTINGP ERFORMED BY: PAT Christiano Olvera6370 [address]Dublin [place] [id number] Neutrophils (Bld) [#/Vol] 2.2 10*3/uL Normal 1.4-7.0 [facility]; [facility] Work Phone: Comment on above: PATIENT WAS FASTINGP ERFORMED BY: PAT LabCosarah BuchananFbdkgk7736 [address] RoadDublin [place] [id number] Neutrophils/100 WBC (Bld) 48 % Normal [facility]; [facility] Work Phone: Comment on above: PATIENT WAS FASTINGP ERFORMED BY: PAT Christiano Olvera6370 [address]Dublin [place] [id number] Platelets (Bld) [#/Vol] 259 {x10E3/uL} Normal 150-450 [facility]; [facility] Work Phone: Comment on above: PATIENT WAS FASTINGP ERFORMED BY: PAT Carolinasarah Gzuzfb1668 [address] RoadDublin [place] [id number] Platelets (Bld) [#/Vol] 259 10*3/uL Normal 150-450 [facility]; [facility] Work Phone: Comment on above: PATIENT WAS FASTINGP ERFORMED BY: PAT DamianMissy BuchananBigsnz9237 [address] RoadDublin [place] [id number] RBC (Bld) [#/Vol] 4.66 {x10E6/uL} Normal 3.77-5.28 [facility] Internal Medicine; [facility] Work Phone: Comment on above: PATIENT WAS FASTINGP ERFORMED BY: PAT [facility] Tvzjfz9945 [address] RoadDublin [place] [id number] RBC (Bld) [#/Vol] 4.66 10*6/uL Normal 3.77-5.28 [facility] Internal Medicine; [facility] Work Phone: Comment on above: PATIENT WAS FASTINGP ERFORMED BY: PAT Olvera6370 [facility] [id number] WBC (Bld) [#/Vol] 4.7 {x10E3/uL} Normal 3.4-10.8 [facility] Internal Medicine; [facility] Work Phone: Comment on above: PATIENT WAS FASTINGP ERFORMED BY: PAT LabPatricia Uluoyh7150 [facility] [id number] WBC (Bld) [#/Vol] 4.7 10*3/uL Normal 3.4-10.8 [facility] Internal Medicine; [facility] Work Phone: Comment on above: PATIENT WAS FASTINGP ERFORMED BY: PAT LabMissy Olvera6370 [facility] [id number] HGB A1C ([id number])Ordered By: S ystem Nursing Teacher on 03-29-2020 HbA1c (Bld) [Mass fraction] 5.3 % Normal 4.8-5.6 [facility] Internal Medicine; [facility] Work Phone: Comment on above: . Prediabetes: 5.7 - 6.4 Diabetes: >6.4 Glycemic control for adults with diabetes: <7.0 PATIENT WAS FASTINGP ERFORMED BY: PAT LabPatricia Dqheka8072 [facility] [id number] METABOLIC PANEL, COMPREHENSI VE ([id number])Ordered By: Histotechnician on 03-29-2020 Albumin [Mass/Vol] 4.1 g/dL Normal 3.8-4.8 [facility] Internal [facility]; [facility] Work Phone: Comment on above: PATIENT WAS FASTINGP ERFORMED BY: PAT [facility] Edjpyc4313 [facility] [id number] Albumin/Globulin [Mass ratio] 1.7 {ratio} Normal 1.2-2.2 [facility] Internal Medicine; [facility] Work Phone: Comment on above: PATIENT WAS FASTINGP ERFORMED BY: PAT [facility] Xoakhu8545 [facility] [id number] ALP [Catalytic activity/Vol] 76 [iU]/L Normal 39-117 [facility]; [facility] Work Phone: Comment on above: PATIENT WAS FASTINGP ERFORMED BY: PAT LabCosarah Dvbzwt0168 [address] RoadDublin [place] [id number] ALP [Catalytic activity/Vol] 76 U/L Normal 39-117 [facility]; [facility] Work Phone: Comment on above: PATIENT WAS FASTINGP ERFORMED BY: PAT LabCosarah BuchananQpwmbk7559 [address] RoadDublin [place] [id number] ALT [Catalytic activity/Vol] 22 [iU]/L Normal 0-32 [facility]; [facility] Work Phone: Comment on above: PATIENT WAS FASTINGP ERFORMED BY: PAT LabCosarah BuchananOrygbg6472 [address] RoadDublin [place] [id number] ALT [Catalytic activity/Vol] 22 U/L Normal 0-32 [facility]; [facility] Work Phone: Comment on above: PATIENT WAS FASTINGP ERFORMED BY: PAT Buchananlin6370 [address]Dublin [place] [id number] AST [Catalytic activity/Vol] 16 [iU]/L Normal 0-40 [facility]; [facility] Work Phone: Comment on above: PATIENT WAS FASTINGP ERFORMED BY: PAT Buchananlin6370 [address]Dublin [place] [id number] AST [Catalytic activity/Vol] 16 U/L Normal 0-40 [facility]; [facility] Work Phone: Comment on above: PATIENT WAS FASTINGP ERFORMED BY: PAT [facility] Fymiyq6811 [address] RoadDublin [place] [id number] Bilirubin [Mass/Vol] 0.8 mg/dL Normal 0.0-1.2 Comp [facility]ensive [facility]; [facility] Work Phone: Comment on above: PATIENT WAS FASTINGP ERFORMED BY: PAT [facility] Drjzvi9431 [address] RoadDublin [place] [id number] Calcium [Mass/Vol] 9.4 mg/dL Normal 8.7-10.2 [facility] Internal [facility]; [facility] Work Phone: Comment on above: PATIENT WAS FASTINGP ERFORMED BY: CB [facility] Miukth4294 [address] RoadDublin [place] [id number] Chloride [Moles/Vol] 101 mmol/L Normal 96-106 Comp rehensive Internal Medicine; [facility] Work Phone: Comment on above: PATIENT WAS FASTINGP ERFORMED BY: CB [facility] Efhhid7915 [address] RoadDublin [place] [id number] CO2 [Moles/Vol] 25 mmol/L Normal 20-29 [facility] Internal Medicine; [facility] Work Phone: Comment on above: PATIENT WAS FASTINGP ERFORMED BY: CB [facility] Buyurt9885 [address]o RoadDublin [place] [id number] Creatinine [Mass/Vol] 1.15 mg/dL Abnormal 0.57-1.00 [facility]; [facility] Work Phone: Comment on above: PATIENT WAS FASTINGP ERFORMED BY: CB [facility] Cbvkih3642 [address]o RoadDublin [place] [id number] GFR/1.73 sq M predicted among blacks CKD-EPI (S/P/Bld) [Vol rate/Area] 65 mL/min/1.73 Normal [facility]; [facility] Work Phone: Comment on above: PATIENT WAS FASTINGP ERFORMED BY: CB [facility] Zbhkvd3925 [address] RoadDublin [place] [id number] GFR/1.73 sq M predicted among non-blacks CKD-EPI (S/P/Bld) [Vol rate/Area] 56 mL/min/1.73 Abnormal [facility]; [facility] Work Phone: Comment on above: PATIENT WAS FASTINGP ERFORMED BY: CB [facility] Kkzjeq2075 [address] RoadDublin [place] [id number] Globulin (S) [Mass/Vol] 2.4 g/dL Normal 1.5-4.5 [facility]; [facility] Work Phone: Comment on above: PATIENT WAS FASTINGP ERFORMED BY: CB [facility] Sbwqbz78[address] [facility]in [place] [id number] Glucose [Mass/Vol] 104 mg/dL Abnormal 65-99 [facility] Internal Medicine; [facility] Work Phone: Comment on above: PATIENT WAS FASTINGP ERFORMED BY: PAT LabMissy BuchananInttxi5001 [address]Dublin [place] [id number] Potassium [Moles/Vol] 4.6 mmol/L Normal 3.5-5.2 [facility] Internal Medicine; [facility] Work Phone: Comment on above: PATIENT WAS FASTINGP ERFORMED BY: PAT LabMissy BuchananPxdtcm2263 [address] Roadblin [place] [id number] Protein [Mass/Vol] 6.5 g/dL Normal 6.0-8.5 [facility] Internal Medicine; [facility] Work Phone: Comment on above: PATIENT WAS FASTINGP ERFORMED BY: PAT LabMissy BuchananVwdctx0223 [address] [facility]in [place] [id number] Sodium [Moles/Vol] 137 mmol/L Normal 134-144 [facility] Internal Medicine; [facility] Work Phone: Comment on above: PATIENT WAS FASTINGP ERFORMED BY: PAT LabMissy BuchananDuyttw3256 [address] [facility]in [place] [id number] Urea nitrogen [Mass/Vol] 18 mg/dL Normal 6-24 [facility]; [facility] Work Phone: Comment on above: PATIENT WAS FASTINGP ERFORMED BY: PAT LabCosarah Onkiml3[address] [facility]in [place] [id number] Urea nitrogen/Creatinine [Mass ratio] 16 mg/mg Normal 9-23 [facility]; [facility] Work Phone: Comment on above: PATIENT WAS FASTINGP ERFORMED BY: PAT LabCosarah Cncsid9032 [address] [facility]in [place] [id number] MICROALBUMINOrdered By: Syst em Nursing Teacher on 03-29-2020 Albumin DL <= 20 mg/L (U) [Mass/Vol] 7.0 ug/mL Normal [facility]; [facility] Work Phone: Comment on above: PATIENT WAS FASTINGP ERFORMED BY: PAT LabCosarah Wpvkyp4027 [address] MiTurnoDublin [place] [id number] Albumin/Creatinine (U) [Mass ratio] 3 {mg/g_creat} Normal 0-29 [facility]; [facility] Work Phone: Comment on above: Normal: 0 - 29 Moder ately increased: 30 - 300 Severely increased: >300 PATIENT WAS FASTINGP ERFORMED BY: PAT [facility] Iqrpxf4582 [address]Dublin [place] [id number] Creatinine (U) [Mass/Vol] 264.3 mg/dL Normal [facility]; [facility] Work Phone: Comment on above: PATIENT WAS FASTINGP ERFORMED BY: PAT Lab[facility] Llpjgz4676 [address] MiTurnoblin [place] [id number] TSH (21352)Ordered By: ClipMine m Nursing Teacher on 03-29-2020 TSH Qn 2.720 {uIU/mL} Normal 0.450-4.500 Comprehen sive Internal Medicine; [facility] Work Phone: Comment on above: PATIENT WAS FASTINGP ERFORMED BY: PAT LabCosarah Zrywvp2706 [address] [facility]in [place] [id number] URINALYSIS, W/ MICRO ([id number]) Ordered By: Histotechnician on 03-29-2020 Appearance (U) Clear Normal Comprehens [facility] Internal Medicine; [facility] Work Phone: Comment on above: PATIENT WAS FASTINGP ERFORMED BY: PAT LabCosarah Bbjzuz3901 [address] [facility]in [place] [id number]; ov 12 Bilirubin Ql (U) Negative Normal Comprehe nsive Internal Medicine; [facility] Work Phone: Comment on above: PATIENT WAS FASTINGP ERFORMED BY: PAT [facility] Ppvfbj3316 [address] RoadDublin [place] [id number]; ov 12 Bilirubin Ql (U) Negative Normal Comprehe nsive Internal Medicine; [facility] Work Phone: Comment on above: PATIENT WAS FASTINGP ERFORMED BY: PAT [facility] Fpsrix4556 [address] RoadDublin [place] [id number]; ov 04/10 Color (U) Yellow Normal [facility]; [facility] Work Phone: Comment on above: PATIENT WAS FASTINGP ERFORMED BY: CB [facility] Cxhqqf6594 [address] RoadDublin [place] [id number]; ov 12 Glucose Ql (U) Negative Normal Comprehens [facility]; [facility] Work Phone: Comment on above: PATIENT WAS FASTINGP ERFORMED BY: CB [facility] Wzwcqk1035 [address] RoadDublin [place] [id number]; ov 04/10 Glucose Ql (U) Negative Normal Comprehens [facility]; [facility] Work Phone: Comment on above: PATIENT WAS FASTINGP ERFORMED BY: CB [facility] Mxecsh0573 [address] RoadDublin [place] [id number]; ov 04/10 Hemoglobin Ql (U) Negative Normal Compreh ensive Internal Medicine; [facility] Work Phone: Comment on above: PATIENT WAS FASTINGP ERFORMED BY: CB [facility] Eljtpz6433 [address] RoadDublin [place] [id number]; ov 04/10 Hemoglobin Ql (U) Negative Normal Compreh ensive Internal Medicine; [facility] Work Phone: Comment on above: PATIENT WAS FASTINGP ERFORMED BY: CB [facility] Kzmdow8093 [address] RoadDublin [place] [id number]; ov 04/10 Ketones Ql (U) Trace Abnormal Comprehens [facility]; [facility] Work Phone: Comment on above: PATIENT WAS FASTINGP ERFORMED BY: CB [facility] Pxewph1057 [address] RoadDublin [place] [id number]; ov 12 Leukocyte esterase Test strip Ql (U) 1+ Abnormal [facility]; [facility] Work Phone: Comment on above: PATIENT WAS FASTINGP ERFORMED BY: CB [facility] Yojypn1018 [address] RoadDublin [place] [id number]; ov 04/10 Microscopic observation LM Nom (Urine sed) See below: Normal [facility]; [facility] Work Phone: Comment on above: Microscopic was justo cated and was performed. PATIENT WAS FASTINGP ERFORMED BY: CB [facility] Qewkba1117 [address] RoadDublin [place] [id number]; ov 12 Nitrite Ql (U) Negative Normal Comprehens [facility]; [facility] Work Phone: Comment on above: PATIENT WAS FASTINGP ERFORMED BY: CB [facility] Ycqwjh2350 [address] RoadDublin [place] [id number]; ov 12 Nitrite Ql (U) Negative Normal Comprehens [facility]; [facility] Work Phone: Comment on above: PATIENT WAS FASTINGP ERFORMED BY: CB [facility] Jerijx9469 [address] RoadDublin [place] [id number]; ov 12 pH (U) 5.5 [pH] Normal 5.0-7.5 [facility]; [facility] Work Phone: Comment on above: PATIENT WAS FASTINGP ERFORMED BY: CB [facility] Wthyfa7653 [address] RoadDublin [place] [id number]; ov 12 Protein Ql (U) Trace Normal Comprehens [facility]; [facility] Work Phone: Comment on above: PATIENT WAS FASTINGP ERFORMED BY: CB [facility] Pwvlvn8672 [address] RoadDublin [place] [id number]; ov 04/10 Specific gravity (U) [Rel density] >=1.030 Abnormal 1.005-1.030 [facility]; [facility] Work Phone: Comment on above: PATIENT WAS FASTINGP ERFORMED BY: CB [facility] Wwxvol7994 [address] RoadDublin [place] [id number]; ov 12 Urobilinogen (U) [Mass/Vol] 1.0 mg/dL Normal 0.2-1.0 [facility]; [facility] Work Phone: Comment on above: PATIENT WAS FASTINGP ERFORMED BY: CB [facility] Sgowov7990 [address] RoadDublin [place] [id number]; ov 04/10 Urobilinogen Test strip (U) [Mass/Vol] 1.0 mg/dL Normal 0.2-1.0 Comprehensi Internal Medicine; [facility] Work Phone: Comment on above: PATIENT WAS FASTINGP ERFORMED BY: CB [facility] Ivrujk5491 [facility] [id number]; ov 04/10 NMR Profile (24668)Ordered B y: Histotechnician on 10-13-2019 Cholesterol [Mass/Vol] 151 mg/dL Normal 100-199 [facility] Internal Medicine Work Phone: Comment on above: Test(s) 612263-KQK-Y ; 383420-FDX-L; 223090-LPE-W; 453695-Srlpetonvyfan; 593807-Zgooombzlxt, Total; 223609-EJV-N (Total);995823-Uqybr LDL-P; 555347-ZDY Size; 746231-MY-YV Scorewas developed and its performance characteristics determinedby [employer]. It has not been cleared or approved by the Foodand Drug Administration.PATIENT WAS FASTINGPERFORMED BY: [employer] [address] [id number] BY: [employer] GlycomindsFormerly [facility] [id number] Cholesterol in HDL [Mass/Vol] 60 mg/dL Normal [facility] Work Phone: Comment on above: Test(s) 466180-DRW-I ; 458673-KCV-T; 101175-XJI-F; 575859-Xgviazywljuzx; 241488-Plvdwnfbjdi, Total; 044365-PRY-T (Total);372262-Fmjny LDL-P; 850512-OTP Size; 303362-YP-HW Scorewas developed and its performance characteristics determinedby [employer]. It has not been cleared or approved by the Foodand Drug Administration.PATIENT WAS FASTINGPERFORMED BY: [employer] [address] [id number] BY: [employer]6370 [facility] [id number] Lipoprotein.alpha [Moles/Vol] 48.5 umol/L Normal [facility] Work Phone: Comment on above: Test(s) 785567-KBR-O ; 233512-QHF-R; 298399-STY-U; 051729-Nfaefarnofzuy; 591722-Pzdcezmhlag, Total; 303311-VHO-A (Total);226212-Gxqqx LDL-P; 196264-EVM Size; 568719-OS-HZ Scorewas developed and its performance characteristics determinedby [employer]. It has not been cleared or approved by the Foodand Drug Administration.PATIENT WAS FASTINGPERFORMED BY: BN [facility] Tzvjwbxckd0857 [facility] [id number] BY: CB [facility] Wwkguu0277 [facility] [id number] Lipoprotein.beta.subpa rticle [Entitic length] 20.7 nm Normal [facility] Work Phone: Comment on above: INTERPRETATIVE INFORMATION PARTICLE CONCENTRATION AND SIZE <--Lower CVD Risk Higher CVD Risk--> LDL AND HDL PARTICLES Percentile in Reference Population HDL-P (total) High 75th 50th 25th Low >34.9 34.9 30.5 26.7 <26.7 . Small LDL-P Low 25th 50th 75th High <117 117 527 839 >839 . LDL Size <-Large (Pattern A)-> <-Small (Pattern B)-> 23.0 20.6 20.5 19.0 Small LDL-P and LDL Size are associated with CVD risk, but not afterLDL-P is taken into account. Test(s) 822907-PIS-U ; 481223-ZTP-V; 086734-XSP-T; 816355-Qgnvujpmprqnz; 321083-Qojawmmmits, Total; 963687-EKV-D (Total);688982-Ayxml LDL-P; 346950-RHR Size; 509023-QI-VE Scorewas developed and its performance characteristics determinedby [employer]. It has not been cleared or approved by the Foodand Drug Administration.PATIENT WAS FASTINGPERFORMED BY: [employer] [address] [id number] BY: [employer]70 [facility] [id number] Lipoprotein.beta.subpa rticle [Moles/Vol] 1044 nmol/L Abnormal [facility] Work Phone: Comment on above: Low < 1000 Moderate 1000 - 1299 Borderline-High 1300 - 1599 High 1600 - 2000 Very High > 2000 Test(s) 988339-PQV-Q ; 428124-IHW-T; 893317-LEQ-F; 979320-Grtepalyeqpfg; 212781-Qnjghcqmjwq, Total; 827089-OOK-O (Total);522702-Ewfqi LDL-P; 552850-QHQ Size; 208893-OV-CS Scorewas developed and its performance characteristics determinedby [employer]. It has not been cleared or approved by the Foodand Drug Administration.PATIENT WAS FASTINGPERFORMED BY: [employer] [address] [id number] BY: [employer]6370 [facility] [id number] Lipoprotein.beta.subpa rticle.small [Moles/Vol] 682 nmol/L Abnormal [facility] Work Phone: Comment on above: Test(s) 974336-SHO-U ; 682446-YSO-K; 737505-ENE-X; 710850-Dgqemgkomufpk; 229627-Raaztgzpjct, Total; 424689-GVC-G (Total);715797-Czisq LDL-P; 069588-KDX Size; 121198-ZI-ZI Scorewas developed and its performance characteristics determinedby [employer]. It has not been cleared or approved by the Foodand Drug Administration.PATIENT WAS FASTINGPERFORMED BY: Witel[address] [id number] BY: [employer]70 [facility] [id number] Triglyceride [Mass/Vol] 112 mg/dL Normal 0-149 [facility] Internal Medicine Work Phone: Comment on above: Test(s) 673745-ZJH-C ; 762024-COC-T; 645237-HJA-U; 592216-Vbiohvksfhbir; 762399-Qeipvwyntdi, Total; 783548-SDD-D (Total);376768-Vnxzk LDL-P; 981199-OCH Size; 914730-KQ-ZV Scorewas developed and its performance characteristics determinedby [employer]. It has not been cleared or approved by the Foodand Drug Administration.PATIENT WAS FASTINGPERFORMED BY: [address]el[address] [id number] BY: [employer]6370 [facility] [id number] NMR Profile (45370) 69 mg/dL Normal 0-99 [facility] Internal Medicine Work Phone: Comment on above: . Optimal < 100 Abov e optimal 100 - 129 Borderline 130 - 159 High 160 - 189 Very high > 189 .LDL-C is inaccurate if patient is non-fasting. Test(s) 514458-JVN-B ; 864604-ZUM-E; 445771-AGX-H; 517562-Dsglhdpsbfhco; 533496-Gvpovdllolk, Total; 322225-SCN-Q (Total);983047-Hksyw LDL-P; 755200-ISE Size; 665006-SD-WY Scorewas developed and its performance characteristics determinedby [employer]. It has not been cleared or approved by the Foodand Drug Administration.PATIENT WAS FASTINGPERFORMED BY: [employer] [address] [id number] BY: [employer] Ayhyvj2110 [facility] [id number] NMR Profile (14599) 60 mg/dL Normal [facility] Internal Medicine; [facility] Internal Medicine Work Phone: NMR Profile (01036) 112 mg/dL Normal 0-149 [facility] Internal Medicine; [facility] Internal Medicine Work Phone: NMR Profile (43469) 151 mg/dL Normal 100-199 [facility] Internal [facility]; [facility] Internal Medicine Work Phone: T3, FREE (TRIDOTHYRONINE) (8 7245)Ordered By: Histotechnician on 10-13-2019 Free T3 [Mass/Vol] 3.1 pg/mL Normal 2.0-4.4 [facility] Work Phone: Comment on above: Test(s) 070006-QWW-X ; 335872-HEP-I; 685037-JWM-K; 622838-Civmttuqxzobf; 314893-Zzlloerpzzr, Total; 378846-IJG-A (Total);287135-Wjegm LDL-P; 677877-ZRN Size; 464876-CB-XF Scorewas developed and its performance characteristics determinedby [employer]. It has not been cleared or approved by the Foodand Drug Administration.PATIENT WAS FASTINGPERFORMED BY: [employer] [address] [id number] BY: [employer] Lztrci7383 [facility] [id number] T4, FREE (THYROXINE) (55380) Ordered By: Histotechnician on 10-13-2019 Free T4 [Mass/Vol] 1.21 ng/dL Normal 0.82-1.77 [facility] Internal [facility] Work Phone: Comment on above: Test(s) 064911-ZVF-N ; 779209-VCO-P; 712315-UPU-O; 119354-Nocefulvvyqst; 701993-Ekzkjqcftji, Total; 993843-DKK-J (Total);741092-Rwapj LDL-P; 969540-DCA Size; 181285-GT-JH Scorewas developed and its performance characteristics determinedby [employer]. It has not been cleared or approved by the Foodand Drug Administration.PATIENT WAS FASTINGPERFORMED BY: LabCoMichael Ville 583237 [facility] [id number] BY: Alkymos Ugiaoa3459 [address] MiTurnoAtrium Health [id number] TSH (18604)Ordered By: Usman liang Nursing Teacher on 10-13-2019 TSH Qn 3.080 {uIU/mL} Normal 0.450-4.500 [facility] Internal Medicine Work Phone: Comment on above: Test(s) 621073-FTP-V ; 113299-IJW-H; 837408-SEZ-K; 238504-Ztnyofzaudbsz; 698526-Cwinjidnzpr, Total; 706007-HTW-I (Total);767521-Jdwsf LDL-P; 289434-YRV Size; 834639-XZ-KA Scorewas developed and its performance characteristics determinedby [employer]. It has not been cleared or approved by the Foodand Drug Administration.PATIENT WAS FASTINGPERFORMED BY: [employer] Zrjedjteiq3665 [facility] [id number] BY: Alkymos Eamxxc5608 [facility] [id number] CBC W/AUTO DIFF WBC (45148)O rdered By: Histotechnician on 08-25-2019 Basophils (Bld) [#/Vol] 0.1 {x10E3/uL} Normal 0.0-0.2 [facility] Work Phone: Comment on above: PATIENT WAS FASTINGP ERFORMED BY: Alkymos Fxstqh9724 OteroBrandProjectFormerly [facility] [id number] Basophils (Bld) [#/Vol] 0.1 10*3/uL Normal 0.0-0.2 [facility]; [facility] Work Phone: Comment on above: PATIENT WAS FASTINGP ERFORMED BY: Alkymos Yehfux4593 [address] MiTurnoAtrium Health [id number] Basophils/100 WBC (Bld) 1 % Normal [facility] Work Phone: Comment on above: PATIENT WAS FASTINGP ERFORMED BY: Alkymos Nkihsc2198 [place] MiTurnoAtrium Health [id number] Eosinophils (Bld) [#/Vol] 0.1 {x10E3/uL} Normal 0.0-0.4 [facility] Work Phone: Comment on above: PATIENT WAS FASTINGP ERFORMED BY: PAT LabCoMonmouth Medical CenterJnhpzq7275 [address] [facility] [place] [id number] Eosinophils (Bld) [#/Vol] 0.1 10*3/uL Normal 0.0-0.4 [facility]; [facility] Work Phone: Comment on above: PATIENT WAS FASTINGP ERFORMED BY: [facility]6370 [address] [facility] [place] [id number] Eosinophils/100 WBC (Bld) 1 % Normal [facility] Work Phone: Comment on above: PATIENT WAS FASTINGP ERFORMED BY: [facility] Nspnwo7347 [facility] [id number] Erythrocyte distribution width (RBC) [Ratio] 11.9 % Normal 11.7-15.4 [facility] Work Phone: Comment on above: PATIENT WAS FASTINGP ERFORMED BY: [facility]6370 [address] [facility] [id number] Hematocrit (Bld) [Volume fraction] 41.2 % Normal 34.0-46.6 [facility] Work Phone: Comment on above: PATIENT WAS FASTINGP ERFORMED BY: [facility]6[address] [facility] [id number] Hemoglobin (Bld) [Mass/Vol] 13.6 g/dL Normal 11.1-15.9 [facility] Work Phone: Comment on above: PATIENT WAS FASTINGP ERFORMED BY: Lab[facility] Uehcjl2953 [address] [facility] [place] [id number] Immature granulocytes (Bld) [#/Vol] 0.0 {x10E3/uL} Normal 0.0-0.1 [facility] Work Phone: Comment on above: PATIENT WAS FASTINGP ERFORMED BY: LabCoKyle Ville 2632[address] [facility] [id number] Immature granulocytes (Bld) [#/Vol] 0.0 10*3/uL Normal 0.0-0.1 [facility]; [facility] Work Phone: Comment on above: PATIENT WAS FASTINGP ERFORMED BY: PAT Buchananlin6370 [address] [facility] [place] [id number] Immature granulocytes/100 WBC (Bld) 0 % Normal [facility] Work Phone: Comment on above: PATIENT WAS FASTINGP ERFORMED BY: PAT [facility] Ogiuqf9762 [address] [facility]in [place] [id number] Lymphocytes (Bld) [#/Vol] 2.6 {x10E3/uL} Normal 0.7-3.1 [facility] Work Phone: Comment on above: PATIENT WAS FASTINGP ERFORMED BY: PAT [facility]Miss[facility] Rbocyp1122 [address] [facility] [id number] Lymphocytes (Bld) [#/Vol] 2.6 10*3/uL Normal 0.7-3.1 [facility]; [facility] Work Phone: Comment on above: PATIENT WAS FASTINGP ERFORMED BY: PAT SalgadoMiss[facility] Rehabilitation Center Rosaug0193 [address] [facility] [id number] Lymphocytes/100 WBC (Bld) 42 % Normal [facility] Work Phone: Comment on above: PATIENT WAS FASTINGP ERFORMED BY: PAT SalgadoMiss[facility] Rehabilitation Center Gbbhwl5154 [facility] [id number] MCH (RBC) [Entitic mass] 30.9 pg Normal 26.6-33.0 [facility] Work Phone: Comment on above: PATIENT WAS FASTINGP ERFORMED BY: PAT [facility] Coxtem0272 [address] [facility] [id number] MCHC (RBC) [Mass/Vol] 33.0 g/dL Normal 31.5-35.7 [facility] prehensive Internal Medicine Work Phone: Comment on above: PATIENT WAS FASTINGP ERFORMED BY: [facility]6370 [facility] [place] [id number] MCV (RBC) [Entitic vol] 94 fL Normal 79-97 [facility] Work Phone: Comment on above: PATIENT WAS FASTINGP ERFORMED BY: PAT Christiano Olvera6370 [address] Road[address] [place] [id number] Monocytes (Bld) [#/Vol] 0.4 {x10E3/uL} Normal 0.1-0.9 [facility] Work Phone: Comment on above: PATIENT WAS FASTINGP ERFORMED BY: PAT LabMiss[facility] Knaxpp0028 [address] [facility] [id number] Monocytes (Bld) [#/Vol] 0.4 10*3/uL Normal 0.1-0.9 [facility]; [facility] Work Phone: Comment on above: PATIENT WAS FASTINGP ERFORMED BY: PAT SalgadoMiss[facility] Rehabilitation Center Jzfcrz9548 [address] [facility] [id number] Monocytes/100 WBC (Bld) 6 % Normal [facility] Work Phone: Comment on above: PATIENT WAS FASTINGP ERFORMED BY: LabMiss[facility] Vsevxj6945 [address] [facility] [id number] Neutrophils (Bld) [#/Vol] 3.1 {x10E3/uL} Normal 1.4-7.0 [facility] Work Phone: Comment on above: PATIENT WAS FASTINGP ERFORMED BY: LabM[facility]6370 [address] [facility] [id number] Neutrophils (Bld) [#/Vol] 3.1 10*3/uL Normal 1.4-7.0 [facility]; [facility] Work Phone: Comment on above: PATIENT WAS FASTINGP ERFORMED BY: LabMiss[facility] Vnsnpu5210 [address] [facility] [place] [id number] Neutrophils/100 WBC (Bld) 50 % Normal [facility] Work Phone: Comment on above: PATIENT WAS FASTINGP ERFORMED BY: LabMiss[facility] Vmunzw2999 [address] RoadDublin [place] [id number] Platelets (Bld) [#/Vol] 325 {x10E3/uL} Normal 150-450 [facility] Work Phone: Comment on above: PATIENT WAS FASTINGP ERFORMED BY: PAT [facility] Rqdzse6089 [address] RoadDublin [place] [id number] Platelets (Bld) [#/Vol] 325 10*3/uL Normal 150-450 [facility]; [facility] Work Phone: Comment on above: PATIENT WAS FASTINGP ERFORMED BY: CB [facility] Uvizbu6818 [address]o RoadDublin [place] [id number] RBC (Bld) [#/Vol] 4.40 {x10E6/uL} Normal 3.77-5.28 [facility] Internal Medicine Work Phone: Comment on above: PATIENT WAS FASTINGP ERFORMED BY: [facility] Schspi9993 [address] RoadDublin [place] [id number] RBC (Bld) [#/Vol] 4.40 10*6/uL Normal 3.77-5.28 [facility]; [facility] Work Phone: Comment on above: PATIENT WAS FASTINGP ERFORMED BY: [facility] Jldkgc8716 [address] RoadDublin [place] [id number] WBC (Bld) [#/Vol] 6.2 {x10E3/uL} Normal 3.4-10.8 [facility] Work Phone: Comment on above: PATIENT WAS FASTINGP ERFORMED BY: CB [facility] Iloklg9106 [address] RoadDublin [place] [id number] WBC (Bld) [#/Vol] 6.2 10*3/uL Normal 3.4-10.8 [facility]; [facility] Work Phone: Comment on above: PATIENT WAS FASTINGP ERFORMED BY: CB [facility] Sllrip9577 [address]Dublin [place] [id number] HGB A1C (80538)Ordered By: S ystem Nursing Teacher on 08-25-2019 HbA1c (Bld) [Mass fraction] 5.4 % Normal 4.8-5.6 [facility] Work Phone: Comment on above: . Prediabetes: 5.7 - 6.4 Diabetes: >6.4 Glycemic control for adults with diabetes: <7.0 PATIENT WAS FASTINGP ERFORMED BY: PAT [facility] Vxaugs5166 [address] RoadDublin [place] [id number] METABOLIC PANEL, COMPREHENSI ALONDRA (02961)Ordered By: Histotechnician on 08-25-2019 Albumin [Mass/Vol] 3.9 g/dL Normal 3.8-4.8 [facility] Internal Medicine Work Phone: Comment on above: PATIENT WAS FASTINGP ERFORMED BY: PAT [facility] Jovsaj26[address]Dublin [place] [id number] Albumin/Globulin [Mass ratio] 1.6 {ratio} Normal 1.2-2.2 [facility] Work Phone: Comment on above: PATIENT WAS FASTINGP ERFORMED BY: [facility] Otzjfa0136 [address] RoadDublin [place] [id number] ALP [Catalytic activity/Vol] 74 [iU]/L Normal 39-117 [facility] Work Phone: Comment on above: PATIENT WAS FASTINGP ERFORMED BY: [facility] Udwcwv9950 [address] RoadDublin [place] [id number] ALP [Catalytic activity/Vol] 74 U/L Normal 39-117 [facility]; [facility] Work Phone: Comment on above: PATIENT WAS FASTINGP ERFORMED BY: [facility] Ixkwaz7[address] RoadDublin [place] [id number] ALT [Catalytic activity/Vol] 14 [iU]/L Normal 0-32 [facility] Work Phone: Comment on above: PATIENT WAS FASTINGP ERFORMED BY: [facility] Ddbkdv4361 [address] RoadDublin [place] [id number] ALT [Catalytic activity/Vol] 14 U/L Normal 0-32 [facility]; [facility] Work Phone: Comment on above: PATIENT WAS FASTINGP ERFORMED BY: PAT [facility] Dcxnel1823 [address] RoadDublin [place] [id number] AST [Catalytic activity/Vol] 13 [iU]/L Normal 0-40 [facility] Work Phone: Comment on above: PATIENT WAS FASTINGP ERFORMED BY: PAT [facility] Sqvgxl5287 [address] RoadDublin [place] [id number] AST [Catalytic activity/Vol] 13 U/L Normal 0-40 [facility]; [facility] Internal Medicine Work Phone: Comment on above: PATIENT WAS FASTINGP ERFORMED BY: PAT [facility] Tohvmh8073 [address]Dublin [place] [id number] Bilirubin [Mass/Vol] 0.5 mg/dL Normal 0.0-1.2 [facility] Work Phone: Comment on above: PATIENT WAS FASTINGP ERFORMED BY: [facility] Ouihdk6622 [address] RoadDublin [place] [id number] Calcium [Mass/Vol] 8.9 mg/dL Normal 8.7-10.2 [facility] Internal Medicine Work Phone: Comment on above: PATIENT WAS FASTINGP ERFORMED BY: PAT [facility] Vzgnhk4186 [address]Dublin [place] [id number] Chloride [Moles/Vol] 102 mmol/L Normal 96-106 [facility] Internal Medicine Work Phone: Comment on above: PATIENT WAS FASTINGP ERFORMED BY: [facility] Buirxq8229 [address] RoadDublin [place] [id number] CO2 [Moles/Vol] 22 mmol/L Normal 20-29 [facility] Internal Medicine Work Phone: Comment on above: PATIENT WAS FASTINGP ERFORMED BY: [facility] Xbjnmw2817 [address]Dublin [place] [id number] Creatinine [Mass/Vol] 0.95 mg/dL Normal 0.57-1.00 [facility] Internal Medicine Work Phone: Comment on above: PATIENT WAS FASTINGP ERFORMED BY: [facility] Gwnbfa0261 [address]Dublin [place] [id number] GFR/1.73 sq M predicted among blacks CKD-EPI (S/P/Bld) [Vol rate/Area] 82 mL/min/1.73 Normal [facility] Work Phone: Comment on above: PATIENT WAS FASTINGP ERFORMED BY: PAT [facility]6[address] [facility] Hospitalin [place] [id number] GFR/1.73 sq M predicted among non-blacks CKD-EPI (S/P/Bld) [Vol rate/Area] 72 mL/min/1.73 Normal [facility] Work Phone: Comment on above: PATIENT WAS FASTINGP ERFORMED BY: PAT [place] 7583970 [facility] [id number] Globulin (S) [Mass/Vol] 2.5 g/dL Normal 1.5-4.5 [facility] Internal Medicine Work Phone: Comment on above: PATIENT WAS FASTINGP ERFORMED BY: [facility]6[address] [facility] [id number] Glucose [Mass/Vol] 106 mg/dL Abnormal 65-99 [facility] Internal Medicine Work Phone: Comment on above: PATIENT WAS FASTINGP ERFORMED BY: [facility]6[address] [facility] [id number] Potassium [Moles/Vol] 4.7 mmol/L Normal 3.5-5.2 [facility] Work Phone: Comment on above: PATIENT WAS FASTINGP ERFORMED BY: [facility]6[address] [facility] [id number] Protein [Mass/Vol] 6.4 g/dL Normal 6.0-8.5 [facility] Internal Medicine Work Phone: Comment on above: PATIENT WAS FASTINGP ERFORMED BY: [facility]6[address] [facility] [id number] Sodium [Moles/Vol] 138 mmol/L Normal 134-144 [facility] Internal Medicine Work Phone: Comment on above: PATIENT WAS FASTINGP ERFORMED BY: PAT [facility] Vbpfeo8617 [address]Dublin [place] [id number] Urea nitrogen [Mass/Vol] 18 mg/dL Normal 6-24 [facility] Work Phone: Comment on above: PATIENT WAS FASTINGP ERFORMED BY: PAT [facility] Adroog49[address]Dublin [place] [id number] Urea nitrogen/Creatinine [Mass ratio] 19 mg/mg Normal 9-23 [facility] Work Phone: Comment on above: PATIENT WAS FASTINGP ERFORMED BY: PAT [facility] Arsgep0341 [address]Dublin [place] [id number] MICROALBUMINOrdered By: Syst em Nursing Teacher on 08-25-2019 Albumin DL <= 20 mg/L (U) [Mass/Vol] mg/dL Normal [facility] Work Phone: Comment on above: PATIENT WAS FASTINGP ERFORMED BY: PAT [facility] Egtkir9593 [address] RoadDublin [place] [id number] Albumin DL <= 20 mg/L (U) [Mass/Vol] mg/dL Normal [facility]; [facility] Work Phone: Comment on above: PATIENT WAS FASTINGP ERFORMED BY: PAT [facility] Lblyqq5704 [address] RoadDublin [place] [id number] Albumin/Creatinine (U) [Mass ratio] <2 Normal 0-29 [facility] Work Phone: Comment on above: Normal: 0 - 29 Moder ately increased: 30 - 300 Severely increased: >300 Please note reference interval change PATIENT WAS FASTINGP ERFORMED BY: PAT [facility] Vldpzy0181 [address] RoadDublin [place] [id number] Creatinine (U) [Mass/Vol] 160.6 mg/dL Normal [facility] Work Phone: Comment on above: PATIENT WAS FASTINGP ERFORMED BY: CB [facility] Kpshva7529 [address] RoadDublin [place] [id number] TSH (THYROID STIMULATING HOR ALEXEY) (96773)Ordered By: Histotechnician on 08-25-2019 TSH Qn 4.910 {uIU/mL} Abnormal 0.450-4.500 [facility] Internal Medicine Work Phone: Comment on above: PATIENT WAS FASTINGP ERFORMED BY: [employer] MiTurnoAtrium Health [id number] CBC W/AUTO DIFF WBC (54508)O rdered By: Histotechnician on 04-28-2019 Basophils (Bld) [#/Vol] 0.0 {x10E3/uL} Normal 0.0-0.2 [facility] Work Phone: Comment on above: Test(s) 246748-WLJ-D ; 043210-QHL-L; 639725-ICY-I; 214821-Dxdgqwsiqgcmh; 398517-Fkslpdpzyxe, Total; 165921-USG-W (Total);998846-Dcbmc LDL-P; 416542-FLU Size; 248093-AL-NT Scorewas developed and its performance characteristics determinedby [employer]. It has not been cleared or approved by the Foodand Drug Administration.PATIENT WAS FASTINGPERFORMED BY: Witel[address] [id number] BY: [employer]6370 IIZI groupFormerly [facility] [id number] Basophils (Bld) [#/Vol] 0.0 10*3/uL Normal 0.0-0.2 [facility]; [facility] Work Phone: Comment on above: Test(s) 527014-OFG-R ; 394568-NQL-B; 805800-KVP-H; 782210-Kdyorqfvyeesz; 401633-Jvpzeqmwgyg, Total; 651520-ICU-W (Total);346355-Erwpk LDL-P; 916913-XMJ Size; 421360-AX-ZB Scorewas developed and its performance characteristics determinedby [employer]. It has not been cleared or approved by the Foodand Drug Administration.PATIENT WAS FASTINGPERFORMED BY: [employer] [address] [id number] BY: [employer]70 Otero RoadAtrium Health [id number] Basophils/100 WBC (Bld) 1 % Normal [facility] Work Phone: Comment on above: Test(s) 432714-NYN-R ; 441031-HEG-B; 619778-VFY-R; 374155-Hvilxggjxvjjm; 728691-Zrpzxzsukoy, Total; 819694-SDP-U (Total);035269-Zxuug LDL-P; 181551-LBJ Size; 776937-JN-TF Scorewas developed and its performance characteristics determinedby [employer]. It has not been cleared or approved by the Foodand Drug Administration.PATIENT WAS FASTINGPERFORMED BY: [employer] [address] [id number] BY: [employer]70 [facility] [id number] Eosinophils (Bld) [#/Vol] 0.1 {x10E3/uL} Normal 0.0-0.4 [facility] Work Phone: Comment on above: Test(s) 908721-UBY-Z ; 242618-OFO-Z; 308040-HSD-S; 344697-Ewwfoeatmagcr; 393416-Mcdmbdispoi, Total; 430814-CEW-G (Total);152352-Vywcb LDL-P; 989292-ZIS Size; 472330-OF-VQ Scorewas developed and its performance characteristics determinedby [employer]. It has not been cleared or approved by the Foodand Drug Administration.PATIENT WAS FASTINGPERFORMED BY: [employer] [address] [id number] BY: [employer] Drtdqz5252 [facility] [id number] Eosinophils (Bld) [#/Vol] 0.1 10*3/uL Normal 0.0-0.4 [facility]; [facility] Work Phone: Comment on above: Test(s) 609544-BKQ-T ; 335661-GPB-Y; 382520-NPZ-P; 971341-Jrsrgwvlbkzig; 623403-Jwpomdrtxdh, Total; 102771-CKB-Z (Total);497689-Rkmzv LDL-P; 715869-RWI Size; 392759-VU-YR Scorewas developed and its performance characteristics determinedby [employer]. It has not been cleared or approved by the Foodand Drug Administration.PATIENT WAS FASTINGPERFORMED BY: [employer] [address] [id number] BY: Alkymos Siwsmr6567 IIZI groupFormerly [facility] [id number] Eosinophils/100 WBC (Bld) 1 % Normal [facility] Work Phone: Comment on above: Test(s) 870771-HXF-R ; 035450-OQJ-P; 059972-PYB-F; 355945-Oqiwlxrouleau; 820462-Zicxsoykuzt, Total; 275593-QZK-J (Total);110134-Llxdn LDL-P; 951815-LWL Size; 854198-PB-FU Scorewas developed and its performance characteristics determinedby [employer]. It has not been cleared or approved by the Foodand Drug Administration.PATIENT WAS FASTINGPERFORMED BY: [employer] [address] [id number] BY: [employer]70 IIZI groupFormerly [facility] [id number] Erythrocyte distribution width (RBC) [Ratio] 12.3 % Normal 11.7-15.4 [facility] Work Phone: Comment on above: Please note refere nce interval change Test(s) 321017-WIX-H ; 016514-TYA-L; 888061-VMQ-H; 040428-Kzfzbarspesvd; 623098-Mxejnctposv, Total; 556549-JGN-Z (Total);553540-Tfrix LDL-P; 499830-FZE Size; 611638-JR-QK Scorewas developed and its performance characteristics determinedby [employer]. It has not been cleared or approved by the Foodand Drug Administration.PATIENT WAS FASTINGPERFORMED BY: [employer] [address] [id number] BY: [employer] MiTurnoAtrium Health [id number] Hematocrit (Bld) [Volume fraction] 41.1 % Normal 34.0-46.6 [facility] Work Phone: Comment on above: Test(s) 970928-NSU-X ; 839292-ZFT-G; 413411-FKD-R; 034537-Dwfyzvrlgomtl; 894213-Nclhhsnzaho, Total; 186377-XAE-C (Total);023878-Etdxi LDL-P; 452355-LSG Size; 165515-OF-TU Scorewas developed and its performance characteristics determinedby [employer]. It has not been cleared or approved by the Foodand Drug Administration.PATIENT WAS FASTINGPERFORMED BY: [employer] [address] [id number] BY: [employer]70 [facility] [id number] Hemoglobin (Bld) [Mass/Vol] 13.6 g/dL Normal 11.1-15.9 [facility] Work Phone: Comment on above: Test(s) 021688-WWY-Z ; 320464-CMZ-D; 921309-SZW-R; 026737-Awdyiwnjxrtfz; 865906-Ahpzshrawut, Total; 937727-FZZ-I (Total);458487-Drdou LDL-P; 446580-KAW Size; 440037-EZ-CD Scorewas developed and its performance characteristics determinedby [employer]. It has not been cleared or approved by the Foodand Drug Administration.PATIENT WAS FASTINGPERFORMED BY: [employer] [address] [id number] BY: [employer]6370 [facility] [id number] Immature granulocytes (Bld) [#/Vol] 0.0 {x10E3/uL} Normal 0.0-0.1 [facility] Work Phone: Comment on above: Test(s) 784609-LWD-S ; 292288-DLH-B; 896355-YJT-W; 691036-Slxijbkctgpms; 738446-Jpxasovsykw, Total; 386988-JFY-J (Total);198465-Yzavw LDL-P; 629824-DME Size; 676254-LR-DF Scorewas developed and its performance characteristics determinedby [employer]. It has not been cleared or approved by the Foodand Drug Administration.PATIENT WAS FASTINGPERFORMED BY: [employer] [address] [id number] BY: Alkymos Uvoyod7991 [facility] [id number] Immature granulocytes (Bld) [#/Vol] 0.0 10*3/uL Normal 0.0-0.1 [facility]; [facility] Work Phone: Comment on above: Test(s) 637226-AQS-L ; 336419-LAY-G; 142643-JGE-W; 216769-Fepyctjdvdatv; 079426-Dpqrtpbtomh, Total; 595684-WUR-A (Total);836640-Pzcdh LDL-P; 366042-NTW Size; 489132-IM-LQ Scorewas developed and its performance characteristics determinedby [employer]. It has not been cleared or approved by the Foodand Drug Administration.PATIENT WAS FASTINGPERFORMED BY: [employer] [address] [id number] BY: [employer]70 [facility] [id number] Immature granulocytes/100 WBC (Bld) 0 % Normal [facility] Internal Medicine Work Phone: Comment on above: Test(s) 031425-SYS-N ; 369884-ZTB-N; 553994-JTI-Y; 748218-Uiucywhsuirro; 132753-Vffrhptejjs, Total; 528671-SWI-R (Total);056567-Dxihm LDL-P; 256208-QPR Size; 959515-XD-IG Scorewas developed and its performance characteristics determinedby [employer]. It has not been cleared or approved by the Foodand Drug Administration.PATIENT WAS FASTINGPERFORMED BY: [employer] [address] [id number] BY: [employer] Mwsmzc2798 [facility] [id number] Lymphocytes (Bld) [#/Vol] 1.9 {x10E3/uL} Normal 0.7-3.1 [facility] Work Phone: Comment on above: Test(s) 402145-EWB-N ; 634772-CWG-L; 660125-NHN-Y; 325136-Elyxirktgjita; 395217-Ifrkoordeli, Total; 101617-WJU-D (Total);047470-Odpzb LDL-P; 176730-PFC Size; 443216-WH-CL Scorewas developed and its performance characteristics determinedby [employer]. It has not been cleared or approved by the Foodand Drug Administration.PATIENT WAS FASTINGPERFORMED BY: Witel[address] [id number] BY: [employer]70 [facility] [id number] Lymphocytes (Bld) [#/Vol] 1.9 10*3/uL Normal 0.7-3.1 [facility]; [facility] Work Phone: Comment on above: Test(s) 379265-MPA-W ; 346007-WBY-P; 122050-FNX-P; 812114-Ritxgrqcvwhfi; 409746-Fujrrcxluxx, Total; 618062-YOH-E (Total);858113-Yltev LDL-P; 362170-CIJ Size; 923871-AL-HE Scorewas developed and its performance characteristics determinedby [employer]. It has not been cleared or approved by the Foodand Drug Administration.PATIENT WAS FASTINGPERFORMED BY: [employer] [address] [id number] BY: [employer]70 [facility] [id number] Lymphocytes/100 WBC (Bld) 40 % Normal [facility] Work Phone: Comment on above: Test(s) 010603-QEL-R ; 551800-HWA-K; 431079-LRK-I; 311505-Adnxxidwyyuzx; 593833-Liwnajwadeo, Total; 917573-QSZ-P (Total);979053-Ocpom LDL-P; 310236-NWX Size; 387572-JP-AM Scorewas developed and its performance characteristics determinedby [employer]. It has not been cleared or approved by the Foodand Drug Administration.PATIENT WAS FASTINGPERFORMED BY: Alkymos[address] [id number] BY: Alkymos Evnvux4093 [facility] [id number] MCH (RBC) [Entitic mass] 30.4 pg Normal 26.6-33.0 [facility] Internal Medicine Work Phone: Comment on above: Test(s) 633210-MLX-Q ; 835980-OEF-N; 587645-AWU-R; 516205-Efvjobcwmfrfm; 861540-Ifysgwmpmuj, Total; 975378-LRM-L (Total);772243-Kajvx LDL-P; 241213-GNU Size; 182899-AV-RX Scorewas developed and its performance characteristics determinedby [employer]. It has not been cleared or approved by the Foodand Drug Administration.PATIENT WAS FASTINGPERFORMED BY: [employer] [address] [id number] BY: [employer]70 [facility] [id number] MCHC (RBC) [Mass/Vol] 33.1 g/dL Normal 31.5-35.7 [facility] Internal Medicine Work Phone: Comment on above: Test(s) 800492-JFW-X ; 548231-JYB-C; 578773-ADH-L; 273643-Olpcphvjeelbc; 917707-Rnmpfowmbfx, Total; 339790-XJO-X (Total);539008-Sjpsa LDL-P; 550001-MTI Size; 422567-XU-GG Scorewas developed and its performance characteristics determinedby [employer]. It has not been cleared or approved by the Foodand Drug Administration.PATIENT WAS FASTINGPERFORMED BY: [employer] [address] [id number] BY: [employer] Ucrcbb5578 [facility] [id number] MCV (RBC) [Entitic vol] 92 fL Normal 79-97 [facility] Work Phone: Comment on above: Test(s) 494568-JJV-T ; 792084-HPP-Z; 580596-IHZ-T; 711885-Nyjdektxqrqup; 591979-Tozmdyjbxpp, Total; 391655-DCS-N (Total);477950-Ptjqq LDL-P; 275187-BVB Size; 045775-RO-OF Scorewas developed and its performance characteristics determinedby [employer]. It has not been cleared or approved by the Foodand Drug Administration.PATIENT WAS FASTINGPERFORMED BY: Witel[address] [id number] BY: [employer]70 [facility] [id number] Monocytes (Bld) [#/Vol] 0.2 {x10E3/uL} Normal 0.1-0.9 [facility] Work Phone: Comment on above: Test(s) 009197-LWB-O ; 865578-PNM-Y; 412400-QEI-P; 862071-Jfpllxgwkngfh; 845774-Pjffjbowzoo, Total; 425684-YAC-A (Total);653899-Zicry LDL-P; 452482-XOK Size; 500567-RW-EE Scorewas developed and its performance characteristics determinedby [employer]. It has not been cleared or approved by the Foodand Drug Administration.PATIENT WAS FASTINGPERFORMED BY: Witel[address] [id number] BY: [employer]6370 [facility] [id number] Monocytes (Bld) [#/Vol] 0.2 10*3/uL Normal 0.1-0.9 [facility]; [facility] Work Phone: Comment on above: Test(s) 178328-OEC-Q ; 978787-CGF-J; 473001-FYB-G; 696504-Fbugwudajsusg; 268280-Wbluwivuvwy, Total; 847097-OOW-E (Total);528881-Ncmjc LDL-P; 776363-CTY Size; 790479-AT-LB Scorewas developed and its performance characteristics determinedby [employer]. It has not been cleared or approved by the Foodand Drug Administration.PATIENT WAS FASTINGPERFORMED BY: [employer] [address] [id number] BY: [employer]70 IIZI groupFormerly [facility] [id number] Monocytes/100 WBC (Bld) 5 % Normal [facility] Work Phone: Comment on above: Test(s) 059639-OYC-W ; 678576-DNB-B; 954630-BSK-W; 974548-Ymelcmftromwh; 265834-Nfgxgfrzdid, Total; 425434-NVT-H (Total);186726-Krmxy LDL-P; 427728-NBP Size; 332689-IU-EC Scorewas developed and its performance characteristics determinedby [employer]. It has not been cleared or approved by the Foodand Drug Administration.PATIENT WAS FASTINGPERFORMED BY: [employer] [address] [id number] BY: [employer]70 IIZI groupFormerly [facility] [id number] Neutrophils (Bld) [#/Vol] 2.5 {x10E3/uL} Normal 1.4-7.0 [facility] Work Phone: Comment on above: Test(s) 836564-YGX-E ; 417817-IVR-B; 904774-UNA-F; 823416-Vqmkafuyhxhvy; 762777-Xjgqlklwocl, Total; 156831-NNU-L (Total);014493-Qhfoy LDL-P; 563044-QJG Size; 111398-PO-YB Scorewas developed and its performance characteristics determinedby [employer]. It has not been cleared or approved by the Foodand Drug Administration.PATIENT WAS FASTINGPERFORMED BY: [employer] [address] [id number] BY: [employer] GlycomindsFormerly [facility] [id number] Neutrophils (Bld) [#/Vol] 2.5 10*3/uL Normal 1.4-7.0 [facility]; [facility] Work Phone: Comment on above: Test(s) 664176-KWP-M ; 371693-YBL-M; 010366-AAC-M; 709182-Usxnexpsfpjnj; 126540-Dwqpmqytgzm, Total; 859352-IVR-O (Total);488770-Uxahp LDL-P; 343193-DMY Size; 094253-HK-JN Scorewas developed and its performance characteristics determinedby [employer]. It has not been cleared or approved by the Foodand Drug Administration.PATIENT WAS FASTINGPERFORMED BY: Witel[address] [id number] BY: [employer]70 [facility] [id number] Neutrophils/100 WBC (Bld) 53 % Normal [facility] Work Phone: Comment on above: Test(s) 635318-KUF-E ; 789526-ROS-W; 219608-LBD-W; 096542-Uwsebsftcqanu; 764206-Efiuzkxtpsq, Total; 112363-OYY-C (Total);327525-Rljrg LDL-P; 825563-VUO Size; 930520-TR-AL Scorewas developed and its performance characteristics determinedby [employer]. It has not been cleared or approved by the Foodand Drug Administration.PATIENT WAS FASTINGPERFORMED BY: Witel[address] [id number] BY: [employer]6370 [facility] [id number] Platelets (Bld) [#/Vol] 322 {x10E3/uL} Normal 150-450 [facility] Work Phone: Comment on above: Test(s) 894149-ZVN-S ; 411961-EPR-M; 427806-XQD-X; 187737-Wbtwpwhcdojjb; 501877-Wddisrhvfix, Total; 595449-GQT-G (Total);799925-Lugsj LDL-P; 850219-HXH Size; 214875-RQ-LZ Scorewas developed and its performance characteristics determinedby [employer]. It has not been cleared or approved by the Foodand Drug Administration.PATIENT WAS FASTINGPERFORMED BY: [employer] [address] [id number] BY: CB [employer] Pnyixj6296 IIZI groupFormerly [facility] [id number] Platelets (Bld) [#/Vol] 322 10*3/uL Normal 150-450 [facility]; [facility] Internal Medicine Work Phone: Comment on above: Test(s) 011415-MAP-Q ; 572078-AGL-N; 857646-FFG-X; 997383-Ukrdqxjxdtomj; 935756-Xwcvmctizzx, Total; 928500-IBA-C (Total);019254-Xduby LDL-P; 651317-TQQ Size; 263028-NB-AE Scorewas developed and its performance characteristics determinedby [employer]. It has not been cleared or approved by the Foodand Drug Administration.PATIENT WAS FASTINGPERFORMED BY: [employer] [address] [id number] BY: [employer]70 IIZI groupFormerly [facility] [id number] RBC (Bld) [#/Vol] 4.47 {x10E6/uL} Normal 3.77-5.28 [facility] Internal Medicine Work Phone: Comment on above: Test(s) 674532-SZE-G ; 880712-OYD-F; 400157-TUD-P; 693071-Zqvxqlgegpswz; 266216-Kmejcqhsfic, Total; 074595-IHD-L (Total);555619-Biixy LDL-P; 026208-HTG Size; 542178-XW-PB Scorewas developed and its performance characteristics determinedby [employer]. It has not been cleared or approved by the Foodand Drug Administration.PATIENT WAS FASTINGPERFORMED BY: Myntra [address] [id number] BY: [employer]70 [facility] [id number] RBC (Bld) [#/Vol] 4.47 10*6/uL Normal 3.77-5.28 [facility] Work Phone: Comment on above: Test(s) 260363-YBW-A ; 673158-YZE-N; 716484-ESK-M; 719443-Puancykxqovau; 946703-Ocforgtevgh, Total; 497107-AOT-G (Total);483468-Wiekx LDL-P; 390857-JHP Size; 499582-JW-XF Scorewas developed and its performance characteristics determinedby [employer]. It has not been cleared or approved by the Foodand Drug Administration.PATIENT WAS FASTINGPERFORMED BY: Witel[address] [id number] BY: [employer]6370 [facility] [id number] WBC (Bld) [#/Vol] 4.8 {x10E3/uL} Normal 3.4-10.8 [facility] Internal Medicine Work Phone: Comment on above: Test(s) 525618-TND-L ; 351924-SCX-G; 130731-JCD-I; 492213-Aoowwgffhrhpw; 392588-Qxaylnmszgk, Total; 824045-OPS-Y (Total);429024-Hrujc LDL-P; 993242-JWN Size; 017656-BP-PE Scorewas developed and its performance characteristics determinedby [employer]. It has not been cleared or approved by the Foodand Drug Administration.PATIENT WAS FASTINGPERFORMED BY: [employer] [address] [id number] BY: People [employer]6370 [facility] [id number] WBC (Bld) [#/Vol] 4.8 10*3/uL Normal 3.4-10.8 [facility] Internal Medicine; [facility] Work Phone: Comment on above: Test(s) 020517-RYB-V ; 555885-VCA-N; 743779-GJF-W; 914557-Jdhvquetdyswc; 335006-Yuptutzixwb, Total; 248810-SHP-E (Total);837986-Jdckr LDL-P; 055827-AOZ Size; 684944-WU-DR Scorewas developed and its performance characteristics determinedby [employer]. It has not been cleared or approved by the Foodand Drug Administration.PATIENT WAS FASTINGPERFORMED BY: BN LabF[employer] Ofspjaxwfo1747 [facility] [id number] BY: CB [employer] Hekesg1459 [facility] [id number] METABOLIC PANEL, COMPREHENSI VE (44491)Ordered By: Histotechnician on 04-28-2019 Albumin [Mass/Vol] 4.0 g/dL Normal 3.5-5.5 [facility] Internal Medicine Work Phone: Comment on above: Effective May 08, 2019 Albumin reference interval will be changing to: Age Male Female 0 - 7 days 3.6 - 4.9 3.6 - 4.9 8 - 30 days 3.4 - 4.7 3.4 - 4.7 1 - 6 month 3.7 - 4.8 3.7 - 4.8 7 months - 2 years 3.9 - 5.0 3.9 - 5.0 3 - 5 years 4.0 - 5.0 4.0 - 5.0 6 - 12 years 4.1 - 5.0 4.0 - 5.0 13 - 30 years 4.1 - 5.2 3.9 - 5.0 31 - 50 years 4.0 - 5.0 3.8 - 4.8 51 - 60 years 3.8 - 4.9 3.8 - 4.9 61 - 70 years 3.8 - 4.8 3.8 - 4.8 71 - 80 years 3.7 - 4.7 3.7 - 4.7 81 - 89 years 3.6 - 4.6 3.6 - 4.6 >89 years 3.5 - 4.6 3.5 - 4.6 Test(s) 399346-ACU-M ; 668747-HFU-J; 913974-QIH-I; 606336-Ngcujujumvbly; 795872-Zavvvffijmx, Total; 647580-IXH-B (Total);547181-Bneay LDL-P; 536966-AGR Size; 318202-GM-BQ Scorewas developed and its performance characteristics determinedby [employer]. It has not been cleared or approved by the Foodand Drug Administration.PATIENT WAS FASTINGPERFORMED BY: Naked[address] [id number] BY: Alkymos Fspkmi2049 [place] [facility] [id number] Albumin/Globulin [Mass ratio] 1.6 {ratio} Normal 1.2-2.2 [facility] Work Phone: Comment on above: Test(s) 195556-HHY-B ; 404612-KYP-M; 292417-ZSG-T; 667295-Hgdyofzigrmje; 667866-Cnpvnogrqgw, Total; 119386-PRN-P (Total);206024-Uzplk LDL-P; 691376-SZQ Size; 722951-MQ-YW Scorewas developed and its performance characteristics determinedby [employer]. It has not been cleared or approved by the FoodCGTrader Drug Administration.PATIENT WAS FASTINGPERFORMED BY: Myntra [address] [id number] BY: [employer] Software70 [place] [facility] [id number] ALP [Catalytic activity/Vol] 69 [iU]/L Normal 39-117 [facility] Work Phone: Comment on above: Test(s) 235313-DRL-S ; 850626-YVY-R; 323307-AOP-D; 101942-Vsbtyjocyspda; 030448-Lvexhzldpdz, Total; 362274-UQE-V (Total);275483-Bgjbs LDL-P; 974290-NJO Size; 174800-AT-DI Scorewas developed and its performance characteristics determinedby [employer]. It has not been cleared or approved by the Foodand Drug Administration.PATIENT WAS FASTINGPERFORMED BY: Naked[address] [id number] BY: [employer] Tgkblv8244 [place] [facility] [id number] ALP [Catalytic activity/Vol] 69 U/L Normal 39-117 [facility]; [facility] Work Phone: Comment on above: Test(s) 448280-XSP-F ; 066244-OLC-W; 261370-URJ-Y; 571973-Kbebkplyzfize; 773156-Kyvasqezdoq, Total; 207873-YTZ-W (Total);545633-Licnu LDL-P; 936512-SSC Size; 453889-DQ-OO Scorewas developed and its performance characteristics determinedby [employer]. It has not been cleared or approved by the Foodand Drug Administration.PATIENT WAS FASTINGPERFORMED BY: Witel[address] [id number] BY: [employer] Software70 [facility] [id number] ALT [Catalytic activity/Vol] 13 [iU]/L Normal 0-32 [facility] Internal Medicine Work Phone: Comment on above: Test(s) 653592-BJZ-T ; 959921-PYP-N; 595885-OVC-E; 319943-Cguaselrwkfps; 509937-Koswummiehj, Total; 095772-AXT-P (Total);363409-Coozt LDL-P; 827513-LLU Size; 085525-DA-YF Scorewas developed and its performance characteristics determinedby [employer]. It has not been cleared or approved by the Foodand Drug Administration.PATIENT WAS FASTINGPERFORMED BY: Myntra [address] [id number] BY: Dizkon Fxqnfq2599 [facility] [id number] ALT [Catalytic activity/Vol] 13 U/L Normal 0-32 [facility]; [facility] Work Phone: Comment on above: Test(s) 757236-JIX-W ; 256952-WFG-G; 421977-FWA-H; 418786-Mqeruznofzvge; 152963-Tusktqqvqbj, Total; 490443-XPT-P (Total);865228-Voacd LDL-P; 280498-KXO Size; 046149-YZ-BC Scorewas developed and its performance characteristics determinedby [employer]. It has not been cleared or approved by the Foodand Drug Administration.PATIENT WAS FASTINGPERFORMED BY: Alkymos[address] [id number] BY: Alkymos Kulrzz2372 [place] [facility] [id number] AST [Catalytic activity/Vol] 16 [iU]/L Normal 0-40 [facility] Work Phone: Comment on above: Test(s) 931723-CWP-I ; 044291-DDT-E; 804129-HVD-N; 626992-Tndweguleeeii; 409130-Udswfpzfwzj, Total; 990276-PFD-Y (Total);180036-Uyvay LDL-P; 609258-XAL Size; 145026-RB-EF Scorewas developed and its performance characteristics determinedby [employer]. It has not been cleared or approved by the Foodand Drug Administration.PATIENT WAS FASTINGPERFORMED BY: Myntra [address] [id number] BY: [employer] Software70 [place] [facility] [id number] AST [Catalytic activity/Vol] 16 U/L Normal 0-40 [facility]; [facility] Internal Medicine Work Phone: Comment on above: Test(s) 358201-XMA-L ; 378068-QAP-G; 361361-ZOV-A; 593952-Ncgxrstbqdrra; 980791-Umrvnnxbjap, Total; 273499-SEJ-A (Total);933948-Payob LDL-P; 029905-LNP Size; 014367-SC-KH Scorewas developed and its performance characteristics determinedby [employer]. It has not been cleared or approved by the Foodand Drug Administration.PATIENT WAS FASTINGPERFORMED BY: Alkymos[address] [id number] BY: [employer]6370 [facility] [id number] Bilirubin [Mass/Vol] 0.6 mg/dL Normal 0.0-1.2 [facility] Internal Medicine Work Phone: Comment on above: Test(s) 438766-ULQ-I ; 450698-HAL-I; 407697-YKC-H; 901312-Calmokdzogrpp; 030409-Uhsurbwrhth, Total; 292498-OJP-U (Total);763209-Qbznb LDL-P; 961886-REH Size; 800622-EI-WN Scorewas developed and its performance characteristics determinedby [employer]. It has not been cleared or approved by the Foodand Drug Administration.PATIENT WAS FASTINGPERFORMED BY: Myntra [address] [id number] BY: [employer] Software70 IIZI groupFormerly [facility] [id number] Calcium [Mass/Vol] 8.8 mg/dL Normal 8.7-10.2 [facility] Internal [facility] Work Phone: Comment on above: Test(s) 122334-TGT-K ; 119541-KZO-P; 119910-JPA-V; 663594-Jgmnenwnptiva; 703688-Urjqqqgclwc, Total; 090227-GLG-S (Total);006200-Msyul LDL-P; 361896-XJS Size; 337617-XB-BU Scorewas developed and its performance characteristics determinedby [employer]. It has not been cleared or approved by the Foodand Drug Administration.PATIENT WAS FASTINGPERFORMED BY: Myntra [address] [id number] BY: [employer]6[address] [place] GlycomindsFormerly [facility] [id number] Chloride [Moles/Vol] 105 mmol/L Normal 96-106 [facility] Internal Medicine Work Phone: Comment on above: Test(s) 248222-SXB-I ; 476299-ICR-U; 584232-LXQ-Q; 119019-Clpoisoedzyuh; 518413-Kvsxnpqqwby, Total; 465978-BPP-K (Total);990080-Ofkmi LDL-P; 058521-XSJ Size; 339768-QT-GT Scorewas developed and its performance characteristics determinedby [employer]. It has not been cleared or approved by the Foodand Drug Administration.PATIENT WAS FASTINGPERFORMED BY: Witel[address] [id number] BY: [employer] Software70 [facility] [id number] CO2 [Moles/Vol] 23 mmol/L Normal 20-29 [facility] Internal Medicine Work Phone: Comment on above: Test(s) 168106-FEJ-Z ; 367699-UND-C; 811094-WOV-M; 764289-Qkwjogbffvoic; 214918-Hczveytmnvi, Total; 122204-IAT-R (Total);042349-Zejjs LDL-P; 300359-WGV Size; 664931-ND-NX Scorewas developed and its performance characteristics determinedby [employer]. It has not been cleared or approved by the Foodand Drug Administration.PATIENT WAS FASTINGPERFORMED BY: Witel[address] [id number] BY: [employer]6370 [facility] [id number] Creatinine [Mass/Vol] 0.83 mg/dL Normal 0.57-1.00 [facility] Internal Medicine Work Phone: Comment on above: Test(s) 651786-TFY-F ; 629770-EPB-V; 246842-NIX-L; 451971-Zvthfdyoynhrn; 443769-Ipfgnrrqmjw, Total; 164755-RJV-X (Total);950416-Cvvds LDL-P; 187573-OUX Size; 017031-KE-NA Scorewas developed and its performance characteristics determinedby [employer]. It has not been cleared or approved by the Foodand Drug Administration.PATIENT WAS FASTINGPERFORMED BY: Witel[address] [id number] BY: Dizkon Psjgls3959 [facility] [id number] GFR/1.73 sq M predicted among blacks CKD-EPI (S/P/Bld) [Vol rate/Area] 97 mL/min/1.73 Normal [facility] Internal Medicine Work Phone: Comment on above: Test(s) 677488-DDN-M ; 528024-TLC-C; 023410-OLJ-G; 495855-Fkmumvkcpisam; 694610-Kpswoljzjzv, Total; 138056-QPI-B (Total);462785-Qruaf LDL-P; 766519-EYL Size; 626718-AR-VF Scorewas developed and its performance characteristics determinedby [employer]. It has not been cleared or approved by the Foodand Drug Administration.PATIENT WAS FASTINGPERFORMED BY: Myntra [address] [id number] BY: Alt12 [employer] [facility] [id number] GFR/1.73 sq M predicted among non-blacks CKD-EPI (S/P/Bld) [Vol rate/Area] 84 mL/min/1.73 Normal [facility] Work Phone: Comment on above: Test(s) 566338-APN-B ; 359254-JGY-V; 408386-CXU-W; 434146-Akfvvoxfwulzr; 813440-Qnuegazrtex, Total; 972828-EOX-K (Total);643519-Exfon LDL-P; 334146-AHS Size; 448012-ZO-GS Scorewas developed and its performance characteristics determinedby [employer]. It has not been cleared or approved by the FoodCGTrader Drug Administration.PATIENT WAS FASTINGPERFORMED BY: Myntra [address] [id number] BY: [employer] Software70 [facility] [id number] Globulin (S) [Mass/Vol] 2.5 g/dL Normal 1.5-4.5 [facility] Work Phone: Comment on above: Test(s) 576208-RXR-X ; 397913-KTP-Z; 958446-IHP-S; 955331-Uyvwpwiawhtxl; 924767-Boxqlyfcxuv, Total; 613467-VDX-P (Total);053048-Vciys LDL-P; 929656-MWJ Size; 571304-UK-SQ Scorewas developed and its performance characteristics determinedby [employer]. It has not been cleared or approved by the Foodand Drug Administration.PATIENT WAS FASTINGPERFORMED BY: Myntra [address] [id number] BY: Alkymos Mrroza8085 [facility] [id number] Glucose [Mass/Vol] 84 mg/dL Normal 65-99 [facility] Internal Medicine Work Phone: Comment on above: Test(s) 829286-VCW-D ; 041505-UXR-V; 085363-BBZ-N; 451816-Xowzjhgikpkwk; 531469-Tqwodqfkywm, Total; 103948-ZZH-S (Total);797661-Yyqnp LDL-P; 394867-GUW Size; 422721-SR-BI Scorewas developed and its performance characteristics determinedby [employer]. It has not been cleared or approved by the Foodand Drug Administration.PATIENT WAS FASTINGPERFORMED BY: Myntra [address] [id number] BY: [employer]6370 [facility] [id number] Potassium [Moles/Vol] 4.8 mmol/L Normal 3.5-5.2 [facility] Internal Medicine Work Phone: Comment on above: Test(s) 472051-ACJ-B ; 904031-AIV-B; 947941-ULB-C; 179540-Osnfexfaarevd; 152086-Ggazousazwj, Total; 335659-AUZ-J (Total);901398-Nhjpr LDL-P; 916124-ADB Size; 722131-SI-CG Scorewas developed and its performance characteristics determinedby [employer]. It has not been cleared or approved by the Foodand Drug Administration.PATIENT WAS FASTINGPERFORMED BY: Naked[address] [id number] BY: BioRegenerative Scienceslin6370 [facility] [id number] Protein [Mass/Vol] 6.5 g/dL Normal 6.0-8.5 [facility] Internal Medicine Work Phone: Comment on above: Test(s) 232484-WMC-N ; 400764-JGM-P; 294059-MXB-Q; 312352-Uwxemlyrtoioa; 244267-Iyunahnmrbs, Total; 094583-JJJ-Y (Total);837813-Rvdew LDL-P; 114285-FAU Size; 449206-WD-OL Scorewas developed and its performance characteristics determinedby [employer]. It has not been cleared or approved by the Foodand Drug Administration.PATIENT WAS FASTINGPERFORMED BY: Witel[address] [id number] BY: Mir[employer]oint Software70 GripeO [facility] [id number] Sodium [Moles/Vol] 141 mmol/L Normal 134-144 [facility] Internal Medicine Work Phone: Comment on above: Test(s) 798019-ORO-D ; 675252-JUS-E; 269990-VFC-G; 431793-Nnrtiwrnbuakm; 871589-Ruistofeqxi, Total; 204255-ISD-P (Total);692144-Wxhbh LDL-P; 494298-AGG Size; 119995-DC-MA Scorewas developed and its performance characteristics determinedby [employer]. It has not been cleared or approved by the Foodand Drug Administration.PATIENT WAS FASTINGPERFORMED BY: Witel[address] [id number] BY: [employer]6370 [facility] [id number] Urea nitrogen [Mass/Vol] 12 mg/dL Normal 6-24 [facility] Work Phone: Comment on above: Test(s) 724364-CEI-N ; 325945-KIM-Y; 065956-CMX-Y; 601194-Xnwjhqqtcpuza; 961473-Hpbdtibtgnu, Total; 943309-FTP-W (Total);280527-Puhws LDL-P; 178578-QBK Size; 497641-NF-AE Scorewas developed and its performance characteristics determinedby [employer]. It has not been cleared or approved by the Foodand Drug Administration.PATIENT WAS FASTINGPERFORMED BY: Myntra [address] [id number] BY: [employer] Software70 IIZI groupFormerly [facility] [id number] Urea nitrogen/Creatinine [Mass ratio] 14 mg/mg Normal 9- [facility] Work Phone: Comment on above: Test(s) 311150-KYG-V ; 125485-QYX-O; 891510-GMV-Z; 877166-Zwgmaafneabal; 218778-Pyhmtrcwdbp, Total; 731030-CSV-X (Total);172144-Rxzog LDL-P; 599473-PQM Size; 105493-HG-JE Scorewas developed and its performance characteristics determinedby [employer]. It has not been cleared or approved by the Foodand Drug Administration.PATIENT WAS FASTINGPERFORMED BY: Witel[address] [id number] BY: [employer] Software70 [place] [facility] [id number] MICROALBUMINOrdered By: Syst em Nursing Teacher on 04-28-2019 Albumin DL <= 20 mg/L (U) [Mass/Vol] 10.8 ug/mL Normal [facility] Work Phone: Comment on above: Test(s) 165033-QQG-Z ; 203016-GUQ-I; 271533-QAE-I; 843291-Uzojqlldbkfkz; 693932-Kcaxaknftww, Total; 871910-GYQ-W (Total);483467-Cfdwe LDL-P; 830846-RFE Size; 406590-GB-UI Scorewas developed and its performance characteristics determinedby [employer]. It has not been cleared or approved by the Foodand Drug Administration.PATIENT WAS FASTINGPERFORMED BY: Myntra [address] [id number] BY: [employer]6370 [facility] [id number] Albumin/Creatinine (U) [Mass ratio] 6.1 {mg/g_creat} Normal 0.0-30.0 [facility] Work Phone: Comment on above: Normal: 0.0 - 30.0 A lbuminuria: 31.0 - 300.0 Clinical albuminuria: >300.0 Effective May 08, 2019 the reference interval for Albumin/Creatinine Ratio will be changing to: Normal: 0 - 29 Moderately increased: 30 - 300 Severely Increased: >300 The result type will also be changing to 0. Test(s) 015786-EMF-Z ; 722679-CUN-B; 637415-MFH-L; 308267-Myljpfhuapqop; 459102-Dkwmxldvpxr, Total; 173816-QYL-E (Total);369480-Hgych LDL-P; 369819-AMU Size; 730228-GM-WB Scorewas developed and its performance characteristics determinedby [employer]. It has not been cleared or approved by the Foodand Drug Administration.PATIENT WAS FASTINGPERFORMED BY: Go Try It On [facility] [id number] BY: Wayin [facility] [id number] Creatinine (U) [Mass/Vol] 178.3 mg/dL Normal [facility] Work Phone: Comment on above: Test(s) 498562-LPY-C ; 224036-NJD-K; 656711-XLH-R; 023133-Iyqftesuktrye; 279474-Amaxwhnjfvm, Total; 296838-JWY-O (Total);061703-Iesgn LDL-P; 983338-PBW Size; 237059-WQ-RU Scorewas developed and its performance characteristics determinedby [employer]. It has not been cleared or approved by the Foodand Drug Administration.PATIENT WAS FASTINGPERFORMED BY: Go Try It On [facility] [id number] BY: [employer]6370 [facility] [id number] NMR Profile (15884)Ordered B y: Histotechnician on 04-28-2019 Cholesterol [Mass/Vol] 236 mg/dL Abnormal 100-199 [facility] Internal Medicine Work Phone: Comment on above: Test(s) 617545-DOH-B ; 664757-LQI-M; 256222-VGC-B; 683596-Lnycpnvjzlxqc; 236994-Yswqukrtxhs, Total; 426760-CZJ-K (Total);863976-Yurbf LDL-P; 236555-IJK Size; 464225-SO-XS Scorewas developed and its performance characteristics determinedby [employer]. It has not been cleared or approved by the Foodand Drug Administration.PATIENT WAS FASTINGPERFORMED BY: Myntra [address] [id number] BY: [employer] Software70 [facility] [id number] Cholesterol in HDL [Mass/Vol] 70 mg/dL Normal [facility] Work Phone: Comment on above: Test(s) 401149-ANU-Z ; 510502-VQF-H; 953747-MJM-Q; 210191-Arxixtfjlipjx; 527213-Kcdbszxrhjo, Total; 088698-EUN-W (Total);564669-Pdiqk LDL-P; 999486-RYK Size; 093614-CJ-EH Scorewas developed and its performance characteristics determinedby [employer]. It has not been cleared or approved by the Foodand Drug Administration.PATIENT WAS FASTINGPERFORMED BY: Myntra [address] [id number] BY: [employer]6370 [facility] [id number] Lipoprotein.alpha [Moles/Vol] 46.8 umol/L Normal [facility] Work Phone: Comment on above: Test(s) 234559-WFO-V ; 916413-WRE-G; 431581-KGZ-Z; 333928-Vttqvvvyvnyis; 044697-Kgsizguqvte, Total; 209201-YNX-P (Total);371344-Nfvyg LDL-P; 754529-GQZ Size; 867339-ZM-SZ Scorewas developed and its performance characteristics determinedby [employer]. It has not been cleared or approved by the Foodand Drug Administration.PATIENT WAS FASTINGPERFORMED BY: Alkymos[address] [id number] BY: AlkymosMonmouth Medical CenterGtvqgg9322 [facility] [id number] Lipoprotein.beta.subpa rticle [Entitic length] 21.1 nm Normal [facility] Work Phone: Comment on above: INTERPRETATIVE INFORMATION PARTICLE CONCENTRATION AND SIZE <--Lower CVD Risk Higher CVD Risk--> LDL AND HDL PARTICLES Percentile in Reference Population HDL-P (total) High 75th 50th 25th Low >34.9 34.9 30.5 26.7 <26.7 . Small LDL-P Low 25th 50th 75th High <117 117 527 839 >839 . LDL Size <-Large (Pattern A)-> <-Small (Pattern B)-> 23.0 20.6 20.5 19.0 Small LDL-P and LDL Size are associated with CVD risk, but not afterLDL-P is taken into account. Test(s) 692347-FNN-U ; 024717-XPX-G; 786398-NCG-F; 601807-Yfqwzascuoeum; 699529-Mrqswngspvb, Total; 198422-LPN-M (Total);288273-Osagp LDL-P; 174106-HWV Size; 967618-LC-KY Scorewas developed and its performance characteristics determinedby [employer]. It has not been cleared or approved by the Foodand Drug Administration.PATIENT WAS FASTINGPERFORMED BY: Alkymos[address] [id number] BY: AlkymosMonmouth Medical CenterOpackr3317 [facility] [id number] Lipoprotein.beta.subpa rticle [Moles/Vol] 2046 nmol/L Abnormal [facility] Work Phone: Comment on above: Low < 1000 Moderate 1000 - 1299 Borderline-High 1300 - 1599 High 1600 - 2000 Very High > 2000 Test(s) 954831-ZMJ-U ; 010077-NFI-B; 220544-PMI-Y; 993834-Ltwmcmycvqvdr; 546157-Jhiymyevnjc, Total; 968261-RVO-I (Total);313462-Fzvpa LDL-P; 148743-SRU Size; 567481-AW-EA Scorewas developed and its performance characteristics determinedby [employer]. It has not been cleared or approved by the Foodand Drug Administration.PATIENT WAS FASTINGPERFORMED BY: Witel[address] [id number] BY: [employer] Software70 IIZI groupFormerly [facility] [id number] Lipoprotein.beta.subpa rticle.small [Moles/Vol] 806 nmol/L Abnormal [facility] Work Phone: Comment on above: Test(s) 600645-WON-Q ; 594916-PYX-K; 764497-POI-S; 151810-Voiqvwxjehldx; 294426-Tzudkjqjnnf, Total; 799205-DBG-P (Total);015557-Prtjz LDL-P; 156208-NBQ Size; 663601-GC-CJ Scorewas developed and its performance characteristics determinedby [employer]. It has not been cleared or approved by the Foodand Drug Administration.PATIENT WAS FASTINGPERFORMED BY: Witel[address] [id number] BY: [employer]6370 IIZI groupFormerly [facility] [id number] Triglyceride [Mass/Vol] 105 mg/dL Normal 0-149 [facility] Work Phone: Comment on above: Test(s) 633921-EFA-Y ; 607567-UZI-C; 999071-SPO-X; 970447-Mlrtrbbdxrcym; 393468-Owiutxbvxvo, Total; 318990-PPM-T (Total);930945-Acovj LDL-P; 816964-TUT Size; 816537-NV-NB Scorewas developed and its performance characteristics determinedby [employer]. It has not been cleared or approved by the Foodand Drug Administration.PATIENT WAS FASTINGPERFORMED BY: Myntra [address] [id number] BY: Dizkon Cfpnql2530 [facility] [id number] NMR Profile (28703) 145 mg/dL Abnormal 0-99 [facility]: Comment on above: . Optimal < 100 Abov e optimal 100 - 129 Borderline 130 - 159 High 160 - 189 Very high > 189 .LDL-C is inaccurate if patient is non-fasting. Test(s) 307874-YID-G ; 480900-HAY-C; 738169-KOO-C; 453223-Hsqoqxjmbtvmm; 926061-Hcqwwcgxotx, Total; 725806-CHI-F (Total);097600-Lepbp LDL-P; 296411-JUH Size; 092284-WH-ZO Scorewas developed and its performance characteristics determinedby [employer]. It has not been cleared or approved by the Foodand Drug Administration.PATIENT WAS FASTINGPERFORMED BY: Myntra [address] [id number] BY: Dizkon Vtlwxi5354 [facility] [id number] NMR Profile (35673) 70 mg/dL Normal [facility] Work Phone: NMR Profile (26918) 105 mg/dL Normal 0-149 [facility] Work Phone: NMR Profile (19927) 236 mg/dL Abnormal 100-199 [facility] Work Phone: TSH (01793)Ordered By: Usman liang Nursing Teacher on 04-28-2019 TSH Qn 2.300 {uIU/mL} Normal 0.450-4.500 Comprehen [facility] Internal Medicine Work Phone: Comment on above: Test(s) 063199-MOZ-I ; 499677-XFA-M; 185380-JQK-I; 207193-Asolxvlkeymqf; 902197-Prgrccvrhun, Total; 280495-VQM-S (Total);200371-Rhupc LDL-P; 379908-JKO Size; 857751-UK-OD Scorewas developed and its performance characteristics determinedby [employer]. It has not been cleared or approved by the Foodand Drug Administration.PATIENT WAS FASTINGPERFORMED BY: Myntra [address] [id number] BY: [employer]70 Project TalentsAtrium Health [id number] URINALYSIS, W/ MICRO (10302) Ordered By: Histotechnician on 04-28-2019 Appearance (U) Cloudy Abnormal [facility] Internal [facility] Work Phone: Comment on above: Test(s) 409484-CDW-O ; 319383-ICA-Z; 973406-LIF-M; 832437-Clfnedtbfcjyd; 456466-Nqpkpxtlemg, Total; 935490-QIW-K (Total);793462-Nigah LDL-P; 877715-QUZ Size; 117403-KI-RG Scorewas developed and its performance characteristics determinedby [employer]. It has not been cleared or approved by the Foodand Drug Administration.PATIENT WAS FASTINGPERFORMED BY: Myntra [address] [id number] BY: [employer]70 GripeO [facility] [id number] Bilirubin Ql (U) Negative Normal Comprehe nsive Internal Medicine Work Phone: Comment on above: Test(s) 122291-OXE-A ; 259431-QBT-P; 326525-NEM-Y; 268912-Zxqcxmbdbzolv; 179618-Jetfemncvtj, Total; 393152-PWQ-S (Total);422857-Btfxq LDL-P; 561266-QXH Size; 329534-IF-DE Scorewas developed and its performance characteristics determinedby [employer]. It has not been cleared or approved by the Foodand Drug Administration.PATIENT WAS FASTINGPERFORMED BY: Myntra [address] [id number] BY: [employer] Hrkban76[address] GlycomindsFormerly [facility] [id number] Bilirubin Ql (U) Negative Normal Comprehe nsive Internal Medicine; [facility] Work Phone: Comment on above: Test(s) 063527-URJ-J ; 900877-FAN-M; 252440-NIM-A; 096191-Zhbdpluynsxoz; 695258-Kydonatvtzq, Total; 236304-FXA-U (Total);088881-Wgqpr LDL-P; 774216-ZDI Size; 916291-KH-OR Scorewas developed and its performance characteristics determinedby [employer]. It has not been cleared or approved by the FoodCGTrader Drug Administration.PATIENT WAS FASTINGPERFORMED BY: Witel[address] [id number] BY: Mir[employer]oint Software70 [address] MiTurnoAtrium Health [id number] Color (U) Yellow Normal [facility] Work Phone: Comment on above: Test(s) 209115-NED-L ; 258507-BFH-Q; 068144-GCZ-E; 856862-Ypasbxfoitave; 795799-Zalxamyxnhw, Total; 971518-GQJ-O (Total);700340-Uooyg LDL-P; 855006-QSA Size; 362885-VD-SS Scorewas developed and its performance characteristics determinedby [employer]. It has not been cleared or approved by the FoodCGTrader Drug Administration.PATIENT WAS FASTINGPERFORMED BY: Myntra [address] [id number] BY: [employer] Opfkhj3452 [facility] [id number] Glucose Ql (U) Negative Normal [facility] Internal [facility] Work Phone: Comment on above: Test(s) 811133-YLV-H ; 305792-UAZ-L; 590450-TOG-Y; 514392-Bkrvhuyqfrbsz; 970471-Ithgxrskvat, Total; 629820-XGR-R (Total);509328-Gsshd LDL-P; 369986-IXU Size; 846281-IG-WF Scorewas developed and its performance characteristics determinedby [employer]. It has not been cleared or approved by the Foodand Drug Administration.PATIENT WAS FASTINGPERFORMED BY: Myntra [address] [id number] BY: AdenyoWhitesburg ARH Hospital [id number] Glucose Ql (U) Negative Normal [facility]; [facility] Work Phone: Comment on above: Test(s) 817358-KQL-D ; 432560-JKB-D; 199460-KWT-S; 832084-Kjhwdbfzbkpcq; 595930-Tjqqcjsepgv, Total; 118118-RXE-Z (Total);305535-Ysplp LDL-P; 050602-TUC Size; 110196-EB-QQ Scorewas developed and its performance characteristics determinedby [employer]. It has not been cleared or approved by the Foodand Drug Administration.PATIENT WAS FASTINGPERFORMED BY: Myntra [address] [id number] BY: [employer]70 IIZI groupFormerly [facility] [id number] Hemoglobin Ql (U) 2+ Abnormal Compreh ensive Internal Medicine Work Phone: Comment on above: Test(s) 560125-SMJ-W ; 317764-LZZ-P; 186594-CDI-D; 004890-Kkkqbfxlzrsgy; 609206-Nbdbzgpmpzx, Total; 572563-TEG-A (Total);156254-Nkqvd LDL-P; 928257-BGX Size; 975845-XO-AV Scorewas developed and its performance characteristics determinedby [employer]. It has not been cleared or approved by the Foodand Drug Administration.PATIENT WAS FASTINGPERFORMED BY: Myntra [address] [id number] BY: [employer]70 IIZI groupFormerly [facility] [id number] Ketones Ql (U) Negative Normal [facility] Work Phone: Comment on above: Test(s) 350621-SUK-K ; 384477-BHM-Q; 988966-FRK-G; 968603-Feuvrqyxylkwy; 010381-Mcdhdsgiyss, Total; 043619-OEL-N (Total);256983-Ptkvh LDL-P; 336600-NSA Size; 369812-CF-WZ Scorewas developed and its performance characteristics determinedby [employer]. It has not been cleared or approved by the Foodand Drug Administration.PATIENT WAS FASTINGPERFORMED BY: Myntra [address] [id number] BY: [employer]70 [facility] [id number] Ketones Ql (U) Negative Normal [facility]; [facility] Work Phone: Comment on above: Test(s) 130938-WYI-A ; 395869-KZG-G; 551371-HMS-M; 040529-Ajucjjzpelsrj; 690916-Clcccflgvze, Total; 761116-HFE-K (Total);129343-Qiqdu LDL-P; 023216-TJJ Size; 933628-ZK-VT Scorewas developed and its performance characteristics determinedby [employer]. It has not been cleared or approved by the Foodand Drug Administration.PATIENT WAS FASTINGPERFORMED BY: Myntra [address] [id number] BY: [employer]fficient Cloud6370 [facility] [id number] Leukocyte esterase Test strip Ql (U) 1+ Abnormal [facility] Work Phone: Comment on above: Test(s) 122390-VXI-D ; 910665-HLV-E; 197134-WNC-N; 290935-Klkwbfdpkdhgg; 720574-Nlyitviqtnj, Total; 880850-YVC-O (Total);249142-Xlrqb LDL-P; 500954-QFM Size; 047526-YC-QE Scorewas developed and its performance characteristics determinedby [employer]. It has not been cleared or approved by the Foodand Drug Administration.PATIENT WAS FASTINGPERFORMED BY: Alkymos[address] [id number] BY: AlkymosMonmouth Medical CenterYspvpb6444 [facility] [id number] Microscopic observation LM Nom (Urine sed) See below: Normal [facility] Work Phone: Comment on above: Microscopic was justo cated and was performed. Test(s) 156662-FHN-K ; 247717-FWQ-B; 191842-EWK-T; 829056-Mktonxriowuvw; 825791-Zjsalekwwlt, Total; 750905-NFW-T (Total);500434-Daqpj LDL-P; 484689-RDL Size; 841244-IJ-QH Scorewas developed and its performance characteristics determinedby [employer]. It has not been cleared or approved by the Foodand Drug Administration.PATIENT WAS FASTINGPERFORMED BY: Myntra [address] [id number] BY: AlkymosMonmouth Medical CenterIuopuu0306 [facility] [id number] Nitrite Ql (U) Negative Normal [facility] Work Phone: Comment on above: Test(s) 422409-MVC-T ; 803179-LZO-K; 489515-VUM-K; 459949-Zabczseyiymun; 004135-Nukwvzhwdys, Total; 230973-HCJ-M (Total);885955-Nujef LDL-P; 819877-DBG Size; 627405-XC-HM Scorewas developed and its performance characteristics determinedby [employer]. It has not been cleared or approved by the Foodand Drug Administration.PATIENT WAS FASTINGPERFORMED BY: Alkymos[address] [id number] BY: AlkymosMonmouth Medical CenterIgmgab5814 [facility] [id number] Nitrite Ql (U) Negative Normal [facility]; [facility] Work Phone: Comment on above: Test(s) 978543-YUR-U ; 996287-LCV-C; 433900-RSP-H; 280140-Gpaliwvynblig; 841097-Bakbektrrmh, Total; 230636-WXU-R (Total);975956-Mfxew LDL-P; 357307-LIF Size; 732754-PJ-UE Scorewas developed and its performance characteristics determinedby [employer]. It has not been cleared or approved by the Foodand Drug Administration.PATIENT WAS FASTINGPERFORMED BY: Witel[address] [id number] BY: [employer]oint Software70 [facility] [id number] pH (U) 5.0 [pH] Normal 5.0-7.5 [facility] Internal Medicine Work Phone: Comment on above: Test(s) 500779-GOQ-Y ; 124335-MTU-Y; 905986-ADB-S; 767846-Hwllguxldhapl; 792137-Qrkjdhjjkdq, Total; 798989-WQS-E (Total);258869-Jwpxb LDL-P; 874907-WCJ Size; 538106-NK-JZ Scorewas developed and its performance characteristics determinedby [employer]. It has not been cleared or approved by the Foodand Drug Administration.PATIENT WAS FASTINGPERFORMED BY: Witel[address] [id number] BY: Efficient Cloud6370 [facility] [id number] Protein Ql (U) Negative Normal [facility] Internal Medicine Work Phone: Comment on above: Test(s) 370857-MVT-O ; 184756-MGY-E; 004678-ONP-I; 381097-Qvphhnppkbhvc; 413229-Nkvqtobmlgh, Total; 660348-MGZ-L (Total);812951-Fxrew LDL-P; 568197-VDK Size; 769099-WK-EH Scorewas developed and its performance characteristics determinedby [employer]. It has not been cleared or approved by the Foodand Drug Administration.PATIENT WAS FASTINGPERFORMED BY: Witel[address] [id number] BY: Efficient Cloud6370 IIZI groupFormerly [facility] [id number] Protein Ql (U) Negative Normal [facility]prehens [facility]; [facility] Work Phone: Comment on above: Test(s) 644658-ZQJ-Y ; 341477-JWL-J; 830034-BLR-Q; 439602-Uklafyvjynhll; 483215-Bfxdtqchblq, Total; 971149-AQM-C (Total);022518-Lcwrj LDL-P; 313810-VKF Size; 773258-FB-XW Scorewas developed and its performance characteristics determinedby [employer]. It has not been cleared or approved by the Foodand Drug Administration.PATIENT WAS FASTINGPERFORMED BY: Witel[address] [id number] BY: [employer]oint Software70 KasennaWhitesburg ARH Hospital [id number] Specific gravity (U) [Rel density] 1.023 1 Normal 1.005-1.030 [facility] Work Phone: Comment on above: Test(s) 785700-EKC-Q ; 285248-SIF-M; 368346-FZN-Z; 061009-Mueauithvcrvi; 657111-Uyumfxxzekt, Total; 036997-XAI-L (Total);464878-Ywgah LDL-P; 430824-SJQ Size; 870955-PP-ZX Scorewas developed and its performance characteristics determinedby [employer]. It has not been cleared or approved by the Foodand Drug Administration.PATIENT WAS FASTINGPERFORMED BY: Myntra [address] [id number] BY: SVXRlin6370 IIZI groupFormerly [facility] [id number] Urobilinogen (U) [Mass/Vol] 0.2 mg/dL Normal 0.2-1.0 [facility]; [facility] Work Phone: Comment on above: Test(s) 142160-MTG-G ; 156474-RKM-E; 184117-KTL-Z; 651291-Hbevyicnrcgrt; 895740-Idsrpawtnhh, Total; 112854-FQU-K (Total);855346-Typkb LDL-P; 612740-SCO Size; 087866-PY-UM Scorewas developed and its performance characteristics determinedby [employer]. It has not been cleared or approved by the Foodand Drug Administration.PATIENT WAS FASTINGPERFORMED BY: [employer] [address] [id number] BY: AdenyoWhitesburg ARH Hospital [id number] Urobilinogen Test strip (U) [Mass/Vol] 0.2 mg/dL Normal 0.2-1.0 [facility] Internal Medicine Work Phone: Comment on above: Test(s) 821939-UXG-A ; 144838-ZWA-W; 774607-BDW-M; 043487-Wdsipougjdabj; 013754-Gqnzrhyiqto, Total; 653864-CRE-Y (Total);287685-Bbvaz LDL-P; 114092-YRS Size; 605322-EI-XX Scorewas developed and its performance characteristics determinedby [employer]. It has not been cleared or approved by the Foodand Drug Administration.PATIENT WAS FASTINGPERFORMED BY: Myntra [address] [id number] BY: Efficient Cloud6370 IIZI groupFormerly [facility] [id number] CBC with auto diff (27903)Or dered By: Histotechnician on 10-21-2018 Basophils (Bld) [#/Vol] 0.1 {x10E3/uL} Normal 0.0-0.2 [facility] Internal Medicine Work Phone: Comment on above: PATIENT WAS FASTINGP ERFORMED BY: [employer] Software70 [place] [id number] Basophils (Bld) [#/Vol] 0.1 10*3/uL Normal 0.0-0.2 [facility]; [facility] Internal Medicine Work Phone: Comment on above: PATIENT WAS FASTINGP ERFORMED BY: Active Voice CorporationFormerly [facility] [id number] Basophils/100 WBC (Bld) 1 % Normal [facility] Work Phone: Comment on above: PATIENT WAS FASTINGP ERFORMED BY: [facility] Kiwwkg0572 [address] RoadDublin [place] [id number] Eosinophils (Bld) [#/Vol] 0.1 {x10E3/uL} Normal 0.0-0.4 [facility] Work Phone: Comment on above: PATIENT WAS FASTINGP ERFORMED BY: CB [facility] Mcwjsy1061 [address] Roadblin [place] [id number] Eosinophils (Bld) [#/Vol] 0.1 10*3/uL Normal 0.0-0.4 [facility]; [facility] Work Phone: Comment on above: PATIENT WAS FASTINGP ERFORMED BY: [facility] Hosxod4312 [address] RoadSentara Albemarle Medical Centerin [place] [id number] Eosinophils/100 WBC (Bld) 2 % Normal [facility] Work Phone: Comment on above: PATIENT WAS FASTINGP ERFORMED BY: [facility] Rrvnmy[address] [facility] [id number] Erythrocyte distribution width (RBC) [Ratio] 12.3 % Normal 12.3-15.4 [facility] Work Phone: Comment on above: PATIENT WAS FASTINGP ERFORMED BY: [facility] Zosdvx[address] [facility]in [place] [id number] Hematocrit (Bld) [Volume fraction] 40.7 % Normal 34.0-46.6 [facility] Work Phone: Comment on above: PATIENT WAS FASTINGP ERFORMED BY: [facility] Vsfsqe7024 [address] RoadDublin [place] [id number] Hemoglobin (Bld) [Mass/Vol] 14.1 g/dL Normal 11.1-15.9 [facility] Work Phone: Comment on above: PATIENT WAS FASTINGP ERFORMED BY: [facility] Afhhad[address] [facility] [place] [id number] Immature granulocytes (Bld) [#/Vol] 0.0 {x10E3/uL} Normal 0.0-0.1 [facility] Work Phone: Comment on above: PATIENT WAS FASTINGP ERFORMED BY: PAT LabMissy BuchananYapudd6483 [address] RoadDublin [place] [id number] Immature granulocytes (Bld) [#/Vol] 0.0 10*3/uL Normal 0.0-0.1 [facility]; [facility] Work Phone: Comment on above: PATIENT WAS FASTINGP ERFORMED BY: PAT Buchananlin6370 [address] RoadDublin [place] [id number] Immature granulocytes/100 WBC (Bld) 0 % Normal [facility] Work Phone: Comment on above: PATIENT WAS FASTINGP ERFORMED BY: PAT Olvera6370 [address] RoadDublin [place] [id number] Lymphocytes (Bld) [#/Vol] 2.0 {x10E3/uL} Normal 0.7-3.1 [facility] Work Phone: Comment on above: PATIENT WAS FASTINGP ERFORMED BY: PAT Buchananlin6370 [address] RoadDublin [place] [id number] Lymphocytes (Bld) [#/Vol] 2.0 10*3/uL Normal 0.7-3.1 [facility]; [facility] Work Phone: Comment on above: PATIENT WAS FASTINGP ERFORMED BY: PAT LabMiss[facility] Zpgjwg1956 [address] RoadDublin [place] [id number] Lymphocytes/100 WBC (Bld) 42 % Normal [facility] Work Phone: Comment on above: PATIENT WAS FASTINGP ERFORMED BY: PAT LabPatricia Opjgju7646 [address] RoadDublin [place] [id number] MCH (RBC) [Entitic mass] 31.3 pg Normal 26.6-33.0 [facility] Work Phone: Comment on above: PATIENT WAS FASTINGP ERFORMED BY: PAT LabCo Veklmf4846 [address] RoadDublin [place] [id number] MCHC (RBC) [Mass/Vol] 34.6 g/dL Normal 31.5-35.7 [facility] prehensive Internal Medicine Work Phone: Comment on above: PATIENT WAS FASTINGP ERFORMED BY: PAT LabCosarah Rlsaxw[address] [facility]bl[facility] [place] [id number] MCV (RBC) [Entitic vol] 90 fL Normal 79-97 [facility] Work Phone: Comment on above: PATIENT WAS FASTINGP ERFORMED BY: PAT [facility] Tzalel2202 [address] RoadSentara Albemarle Medical Centerin [place] [id number] Monocytes (Bld) [#/Vol] 0.3 {x10E3/uL} Normal 0.1-0.9 [facility] Work Phone: Comment on above: PATIENT WAS FASTINGP ERFORMED BY: PAT [facility] Wqopio7806 [address]tero RoadAtrium Health [id number] Monocytes (Bld) [#/Vol] 0.3 10*3/uL Normal 0.1-0.9 [facility]; [facility] Work Phone: Comment on above: PATIENT WAS FASTINGP ERFORMED BY: PAT [facility] Pywkgh[address] [facility]bl[facility] [place] [id number] Monocytes/100 WBC (Bld) 7 % Normal [facility] Work Phone: Comment on above: PATIENT WAS FASTINGP ERFORMED BY: PAT [facility] Hgpvvf[address] [facility]in [place] [id number] Neutrophils (Bld) [#/Vol] 2.3 {x10E3/uL} Normal 1.4-7.0 [facility] Work Phone: Comment on above: PATIENT WAS FASTINGP ERFORMED BY: [facility] Qjxgjc7269 [address] RoadDublin [place] [id number] Neutrophils (Bld) [#/Vol] 2.3 10*3/uL Normal 1.4-7.0 [facility]; [facility] Work Phone: Comment on above: PATIENT WAS FASTINGP ERFORMED BY: [facility] Xerggj8924 [facility] [id number] Neutrophils/100 WBC (Bld) 48 % Normal [facility] Work Phone: Comment on above: PATIENT WAS FASTINGP ERFORMED BY: PAT Christiano Olvera6370 [facility] [id number] Platelets (Bld) [#/Vol] 296 {x10E3/uL} Normal 150-450 [facility] Work Phone: Comment on above: PATIENT WAS FASTINGP ERFORMED BY: PAT Carolina Ggrzpt[address] [facility] [id number] Platelets (Bld) [#/Vol] 296 10*3/uL Normal 150-450 [facility]; [facility] Work Phone: Comment on above: PATIENT WAS FASTINGP ERFORMED BY: PAT Carolina Vhqdxv3521 [facility] [id number] RBC (Bld) [#/Vol] 4.50 {x10E6/uL} Normal 3.77-5.28 [facility] Internal Medicine Work Phone: Comment on above: PATIENT WAS FASTINGP ERFORMED BY: PAT DamianMiss[facility] Rehabilitation Center Oncolv7576 [facility] [id number] RBC (Bld) [#/Vol] 4.50 10*6/uL Normal 3.77-5.28 [facility]; [facility] Work Phone: Comment on above: PATIENT WAS FASTINGP ERFORMED BY: PAT DamianMiss[facility] Center Yoghzb8422 [facility] [id number] WBC (Bld) [#/Vol] 4.8 {x10E3/uL} Normal 3.4-10.8 [facility] Internal Medicine Work Phone: Comment on above: PATIENT WAS FASTINGP ERFORMED BY: PAT LabMissouri Rehabilitation Center Azvrjl2212 [facility] [id number] WBC (Bld) [#/Vol] 4.8 10*3/uL Normal 3.4-10.8 [facility] Internal Medicine; [facility] Work Phone: Comment on above: PATIENT WAS FASTINGP ERFORMED BY: PAT [facility] Xzxnhy8043 [address] RoadDublin [place] [id number] HGB A1C (54029)Ordered By: S ystem Nursing Teacher on 10-21-2018 HbA1c (Bld) [Mass fraction] 5.1 % Normal 4.8-5.6 [facility] Work Phone: Comment on above: . Prediabetes: 5.7 - 6.4 Diabetes: >6.4 Glycemic control for adults with diabetes: <7.0 PATIENT WAS FASTINGP ERFORMED BY: PAT LabCosarah Vmskuu8573 [address] RoadDublin [place] [id number] LIPID PANEL ([id number])Ordered B y: Histotechnician on 10-21-2018 Cholesterol [Mass/Vol] 178 mg/dL Normal 100-199 [facility] Internal Medicine Work Phone: Comment on above: PATIENT WAS FASTINGP ERFORMED BY: PAT LabMissy BuchananMxihrt7081 [address] RoadDublin [place] [id number] Cholesterol in HDL [Mass/Vol] 60 mg/dL Normal [facility] Work Phone: Comment on above: PATIENT WAS FASTINGP ERFORMED BY: PAT LabMissy BuchananJxrvuy1836 [address] RoadDublin [place] [id number] Cholesterol in LDL [Mass/Vol] 98 mg/dL Normal 0-99 [facility] Work Phone: Comment on above: PATIENT WAS FASTINGP ERFORMED BY: PAT [facility] Cjivtr0333 [address] RoadDublin [place] [id number] Cholesterol in LDL/Cholesterol in HDL [Mass ratio] 1.6 {ratio} Normal 0.0-3.2 [facility] Work Phone: Comment on above: LDL/HDL Ratio Men Wo men 1/2 Avg.Risk 1.0 1.5 Avg.Risk 3.6 3.2 2X Avg.Risk 6.2 5.0 3X Avg.Risk 8.0 6.1 PATIENT WAS FASTINGP ERFORMED BY: PAT LabCosarah Yslsnt0888 [address] RoadDublin [place] [id number] Cholesterol in VLDL [Mass/Vol] 20 mg/dL Normal 5-40 [facility] Work Phone: Comment on above: PATIENT WAS FASTINGP ERFORMED BY: PAT [facility] Jjjxrk1306 [address] RoadDublin [place] [id number] Triglyceride [Mass/Vol] 100 mg/dL Normal 0-149 [facility] Work Phone: Comment on above: PATIENT WAS FASTINGP ERFORMED BY: PAT [facility] Szqecn9698 [address] RoadDublin [place] [id number] METABOLIC PANEL, COMPREHENSI VE (67149)Ordered By: Histotechnician on 10-21-2018 Albumin [Mass/Vol] 3.8 g/dL Normal 3.5-5.5 [facility] Internal Medicine Work Phone: Comment on above: PATIENT WAS FASTINGP ERFORMED BY: PAT [facility] Xpszhs7582 [address] RoadDublin [place] [id number] Albumin/Globulin [Mass ratio] 1.4 {ratio} Normal 1.2-2.2 [facility] Work Phone: Comment on above: PATIENT WAS FASTINGP ERFORMED BY: PAT [facility] Rgqstd2162 [address]Dublin [place] [id number] ALP [Catalytic activity/Vol] 70 [iU]/L Normal 39-117 [facility] Work Phone: Comment on above: PATIENT WAS FASTINGP ERFORMED BY: PAT [facility] Vnnsge6370 [address]Dublin [place] [id number] ALP [Catalytic activity/Vol] 70 U/L Normal 39-117 [facility]; [facility] Work Phone: Comment on above: PATIENT WAS FASTINGP ERFORMED BY: CB [facility] Mpfguw8061 [address]Dublin [place] [id number] ALT [Catalytic activity/Vol] 12 [iU]/L Normal 0-32 [facility] Work Phone: Comment on above: PATIENT WAS FASTINGP ERFORMED BY: CB [facility] Tqbinp1768 [address] RoadDublin [place] [id number] ALT [Catalytic activity/Vol] 12 U/L Normal 0-32 [facility]; [facility] Work Phone: Comment on above: PATIENT WAS FASTINGP ERFORMED BY: CB [facility] Afpyxu3116 [address]Dublin [place] [id number] AST [Catalytic activity/Vol] 12 [iU]/L Normal 0-40 [facility] Internal Medicine Work Phone: Comment on above: PATIENT WAS FASTINGP ERFORMED BY: CB [facility] Xflszt1474 [address] RoadDublin [place] [id number] AST [Catalytic activity/Vol] 12 U/L Normal 0-40 [facility]; [facility] Internal Medicine Work Phone: Comment on above: PATIENT WAS FASTINGP ERFORMED BY: [facility] Vulbnl9049 [address] RoadDublin [place] [id number] Bilirubin [Mass/Vol] 0.5 mg/dL Normal 0.0-1.2 [facility] Work Phone: Comment on above: PATIENT WAS FASTINGP ERFORMED BY: [facility] Ducrfo9130 [address] RoadDublin [place] [id number] Calcium [Mass/Vol] 8.7 mg/dL Normal 8.7-10.2 [facility] Internal Medicine Work Phone: Comment on above: PATIENT WAS FASTINGP ERFORMED BY: [facility] Wxrsiw9956 [address] RoadDublin [place] [id number] Chloride [Moles/Vol] 104 mmol/L Normal 96-106 [facility] Work Phone: Comment on above: PATIENT WAS FASTINGP ERFORMED BY: CB [facility] Zodeyj1638 [address] RoadDublin [place] [id number] CO2 [Moles/Vol] 23 mmol/L Normal 20-29 [facility] Internal Medicine Work Phone: Comment on above: PATIENT WAS FASTINGP ERFORMED BY: CB [facility] Ccwhrp8080 [address]Dublin [place] [id number] Creatinine [Mass/Vol] 0.86 mg/dL Normal 0.57-1.00 [facility] Work Phone: Comment on above: PATIENT WAS FASTINGP ERFORMED BY: CB [facility] Siyvcw8274 [address] RoadDublin [place] [id number] GFR/1.73 sq M predicted among blacks CKD-EPI (S/P/Bld) [Vol rate/Area] 94 mL/min/1.73 Normal [facility] Work Phone: Comment on above: PATIENT WAS FASTINGP ERFORMED BY: CB [facility] Otsvnq9773 [address] RoadDublin [place] [id number] GFR/1.73 sq M predicted among non-blacks CKD-EPI (S/P/Bld) [Vol rate/Area] 81 mL/min/1.73 Normal [facility] Work Phone: Comment on above: PATIENT WAS FASTINGP ERFORMED BY: [facility] Patohp0470 [address]Dublin [place] [id number] Globulin (S) [Mass/Vol] 2.8 g/dL Normal 1.5-4.5 [facility] Internal Medicine Work Phone: Comment on above: PATIENT WAS FASTINGP ERFORMED BY: [facility] Gfwydn6159 [address]Dublin [place] [id number] Glucose [Mass/Vol] 104 mg/dL Abnormal 65-99 [facility] Internal Medicine Work Phone: Comment on above: PATIENT WAS FASTINGP ERFORMED BY: [facility] Ymimsv0066 [address] RoadDublin [place] [id number] Potassium [Moles/Vol] 5.4 mmol/L Abnormal 3.5-5.2 [facility] Internal Medicine Work Phone: Comment on above: PATIENT WAS FASTINGP ERFORMED BY: CB [facility] Bdnnef1722 [address] RoadDublin [place] [id number] Protein [Mass/Vol] 6.6 g/dL Normal 6.0-8.5 [facility] Internal Medicine Work Phone: Comment on above: PATIENT WAS FASTINGP ERFORMED BY: CB [facility] Kvdlqo8259 [address]Dublin [place] [id number] Sodium [Moles/Vol] 140 mmol/L Normal 134-144 Compre [facility] Internal Medicine Work Phone: Comment on above: PATIENT WAS FASTINGP ERFORMED BY: PAT LabMissy BuchananAupdho5255 [address] RoadDublin [place] [id number] Urea nitrogen [Mass/Vol] 18 mg/dL Normal 6-24 [facility] Work Phone: Comment on above: PATIENT WAS FASTINGP ERFORMED BY: PAT LabMissy BuchananExisgj7083 [address] RoadDublin [place] [id number] Urea nitrogen/Creatinine [Mass ratio] 21 mg/mg Normal 9-23 [facility] Work Phone: Comment on above: PATIENT WAS FASTINGP ERFORMED BY: PAT LabMissy BuchananVendin1434 [address]Dublin [place] [id number] MICROALBUMINOrdered By: Syst em Nursing Teacher on 10-21-2018 Albumin DL <= 20 mg/L (U) [Mass/Vol] mg/dL Normal [facility] Work Phone: Comment on above: PATIENT WAS FASTINGP ERFORMED BY: PAT Buchananlin6370 [address]Dublin [place] [id number] Albumin DL <= 20 mg/L (U) [Mass/Vol] mg/dL Normal [facility]; [facility] Work Phone: Comment on above: PATIENT WAS FASTINGP ERFORMED BY: PAT Buchananlin6370 [address]Dublin [place] [id number] Albumin/Creatinine (U) [Mass ratio] <2.4 Normal 0.0-30.0 [facility] Work Phone: Comment on above: Normal: 0.0 - 30.0 A lbuminuria: 31.0 - 300.0 Clinical albuminuria: >300.0 PATIENT WAS FASTINGP ERFORMED BY: PAT LabCosarah Cjjntp2408 [address] RoadDublin [place] [id number] Creatinine (U) [Mass/Vol] 124.8 mg/dL Normal [facility] Work Phone: Comment on above: PATIENT WAS FASTINGP ERFORMED BY: PAT LabCosarah Qtcnhi5099 [address]Dublin [place] [id number] TSH (THYROID STIMULATING HOR ALEXEY) ([id number])Ordered By: Histotechnician on 10-21-2018 TSH Qn 4.110 {uIU/mL} Normal 0.450-4.500 Ericaregina dickson Internal Medicine Work Phone: Comment on above: PATIENT WAS FASTINGP ERFORMED BY: [place] [id number] [facility] [id number] CBC W/AUTO DIFF WBC ([id number])O rdered By: Histotechnician on 02-18-2018 Basophils #/vol (Bld) 0.0 {x10E3/uL} Normal 0.0-0.2 [facility] Work Phone: Comment on above: PATIENT WAS FASTINGP ERFORMED BY: [address] [id number] Basophils (Bld) [#/Vol] 0.0 10*3/uL Normal 0.0-0.2 [facility]; [facility] Work Phone: Comment on above: PATIENT WAS FASTINGP ERFORMED BY: [place] [id number] [facility] [id number] Basophils Auto #/vol (Bld) 0.0 {x10E3/uL} Normal 0.0-0.2 [facility] Work Phone: Basophils/100 WBC (Bld) 1 % Normal [facility] Work Phone: Comment on above: PATIENT WAS FASTINGP ERFORMED BY: LabChristopher [place] 7571970 [facility] [id number] Basophils/100 WBC Auto (Bld) 1 % Normal [facility] Work Phone: Eosinophils #/vol (Bld) 0.1 {x10E3/uL} Normal 0.0-0.4 [facility] Work Phone: Comment on above: PATIENT WAS FASTINGP ERFORMED BY: [place] [id number] [facility] [id number] Eosinophils (Bld) [#/Vol] 0.1 10*3/uL Normal 0.0-0.4 [facility]; [facility] Work Phone: Comment on above: PATIENT WAS FASTINGP ERFORMED BY: [facility]6370 [facility] [id number] Eosinophils Auto #/vol (Bld) 0.1 {x10E3/uL} Normal 0.0-0.4 [facility] Work Phone: Eosinophils/100 WBC (Bld) 2 % Normal [facility] Work Phone: Comment on above: PATIENT WAS FASTINGP ERFORMED BY: RolladChristopher [place] 7571970 [facility] [id number] Eosinophils/100 WBC Auto (Bld) 2 % Normal [facility] Work Phone: Erythrocyte distribution width Auto Ratio (RBC) 12.7 % Normal 12.3-15.4 [facility] Work Phone: Erythrocyte distribution width Ratio (RBC) 12.7 % Normal 12.3-15.4 [facility] Work Phone: Comment on above: PATIENT WAS FASTINGP ERFORMED BY: RolladChristopher [place] 7571970 [facility] [id number] Hematocrit Auto Volume Fraction (Bld) 43.3 % Normal 34.0-46.6 [facility] Work Phone: Hematocrit Volume Fraction (Bld) 43.3 % Normal 34.0-46.6 [facility] Work Phone: Comment on above: PATIENT WAS FASTINGP ERFORMED BY: [facility]6370 [facility] [id number] Hemoglobin mass conc (Bld) 14.4 g/dL Normal 11.1-15.9 [facility] Work Phone: Comment on above: PATIENT WAS FASTINGP ERFORMED BY: [facility]6370 [facility] [id number] Immature granulocytes #/vol (Bld) 0.0 {x10E3/uL} Normal 0.0-0.1 [facility] Work Phone: Comment on above: PATIENT WAS FASTINGP ERFORMED BY: [place] [id number] [facility] [id number] Immature granulocytes (Bld) [#/Vol] 0.0 10*3/uL Normal 0.0-0.1 [facility]; [facility] Work Phone: Comment on above: PATIENT WAS FASTINGP ERFORMED BY: [place] [id number] [facility] [id number] Immature granulocytes/100 WBC (Bld) 0 % Normal [facility] Work Phone: Comment on above: PATIENT WAS FASTINGP ERFORMED BY: [place] [id number] [facility] [id number] Lymphocytes #/vol (Bld) 1.7 {x10E3/uL} Normal 0.7-3.1 [facility] Work Phone: Comment on above: PATIENT WAS FASTINGP ERFORMED BY: [place] [id number] [facility] [id number] Lymphocytes (Bld) [#/Vol] 1.7 10*3/uL Normal 0.7-3.1 [facility]; [facility] Work Phone: Comment on above: PATIENT WAS FASTINGP ERFORMED BY: [place] [id number] [facility] [id number] Lymphocytes Auto #/vol (Bld) 1.7 {x10E3/uL} Normal 0.7-3.1 [facility] Work Phone: Lymphocytes/100 WBC (Bld) 43 % Normal [facility] Work Phone: Comment on above: PATIENT WAS FASTINGP ERFORMED BY: [place] [id number] [facility] [id number] Lymphocytes/100 WBC Auto (Bld) 43 % Normal [facility] Work Phone: MCH Auto Entitic mass (RBC) 30.7 pg Normal 26.6-33.0 [facility] Work Phone: MCH Entitic mass (RBC) 30.7 pg Normal 26.6-33.0 [facility] Internal Medicine Work Phone: Comment on above: PATIENT WAS FASTINGP ERFORMED BY: PAT [facility] HospitalMissy BuchananYorvjn7721 [facility] [id number] MCHC Auto mass conc (RBC) 33.3 g/dL Normal 31.5-35.7 [facility] Work Phone: MCHC mass conc (RBC) 33.3 g/dL Normal 31.5-35.7 [facility] Internal Medicine Work Phone: Comment on above: PATIENT WAS FASTINGP ERFORMED BY: PAT Buchananlin6370 [facility] [id number] MCV Auto Entitic volume (RBC) 92 fL Normal 79-97 [facility] Work Phone: MCV Entitic volume (RBC) 92 fL Normal 79-97 [facility] Work Phone: Comment on above: PATIENT WAS FASTINGP ERFORMED BY: PAT [facility]Miss[facility] Vvpzqv6113 [facility] [id number] Monocytes #/vol (Bld) 0.3 {x10E3/uL} Normal 0.1-0.9 [facility] Work Phone: Comment on above: PATIENT WAS FASTINGP ERFORMED BY: PAT [facility] Byvhui[address] [id number] Monocytes (Bld) [#/Vol] 0.3 10*3/uL Normal 0.1-0.9 [facility]; [facility] Work Phone: Comment on above: PATIENT WAS FASTINGP ERFORMED BY: [place] [id number] [facility] [id number] Monocytes Auto #/vol (Bld) 0.3 {x10E3/uL} Normal 0.1-0.9 [facility] Work Phone: Monocytes/100 WBC (Bld) 6 % Normal [facility] Work Phone: Comment on above: PATIENT WAS FASTINGP ERFORMED BY: [facility]6370 [facility] [id number] Monocytes/100 WBC Auto (Bld) 6 % Normal [facility] Work Phone: Neutrophils #/vol (Bld) 2.0 {x10E3/uL} Normal 1.4-7.0 [facility] Work Phone: Comment on above: PATIENT WAS FASTINGP ERFORMED BY: [place] [address] [facility] [id number] Neutrophils (Bld) [#/Vol] 2.0 10*3/uL Normal 1.4-7.0 [facility]; [facility] Work Phone: Comment on above: PATIENT WAS FASTINGP ERFORMED BY: PAT [facility] Anomhp7998 [facility] [id number] Neutrophils Auto #/vol (Bld) 2.0 {x10E3/uL} Normal 1.4-7.0 [facility] Work Phone: Neutrophils/100 WBC (Bld) 48 % Normal [facility] Work Phone: Comment on above: PATIENT WAS FASTINGP ERFORMED BY: [facility] Lufoov6023 [facility] [id number] Neutrophils/100 WBC Auto (Bld) 48 % Normal [facility] Work Phone: Platelets #/vol (Bld) 287 {x10E3/uL} Normal 150-379 [facility] Work Phone: Comment on above: PATIENT WAS FASTINGP ERFORMED BY: [place] [id number] [facility] [id number] Platelets (Bld) [#/Vol] 287 10*3/uL Normal 150-379 [facility]; [facility] Work Phone: Comment on above: PATIENT WAS FASTINGP ERFORMED BY: [facility] Xnrmsj1139 [facility] [id number] Platelets Auto #/vol (Bld) 287 {x10E3/uL} Normal 150-379 [facility] Work Phone: RBC #/vol (Bld) 4.69 {x10E6/uL} Normal 3.77-5.28 [facility] Internal Medicine Work Phone: Comment on above: PATIENT WAS FASTINGP ERFORMED BY: [facility]6370 [facility] [id number] RBC (Bld) [#/Vol] 4.69 10*6/uL Normal 3.77-5.28 [facility] Internal Medicine; [facility] Work Phone: Comment on above: PATIENT WAS FASTINGP ERFORMED BY: LabChristopher [place] 7571970 [facility] [id number] RBC Auto #/vol (Bld) 4.69 {x10E6/uL} Normal 3.77-5.28 [facility] Work Phone: WBC #/vol (Bld) 4.1 {x10E3/uL} Normal 3.4-10.8 [facility] Internal Medicine Work Phone: Comment on above: PATIENT WAS FASTINGP ERFORMED BY: [facility]6370 [facility] [id number] WBC (Bld) [#/Vol] 4.1 10*3/uL Normal 3.4-10.8 [facility] Internal Medicine; [facility] Work Phone: Comment on above: PATIENT WAS FASTINGP ERFORMED BY: [facility]6370 [facility] [id number] WBC Auto #/vol (Bld) 4.1 {x10E3/uL} Normal 3.4-10.8 [facility] Internal Medicine Work Phone: HGB A1C ([id number])Ordered By: S ystem Nursing Teacher on 02-18-2018 Hemoglobin A1c/Hemoglobin.total mass fraction (Bld) 5.1 % Normal 4.8-5.6 Comprehens e Internal Medicine Work Phone: Comment on above: . Prediabetes: 5.7 - 6.4 Diabetes: >6.4 Glycemic control for adults with diabetes: <7.0 PATIENT WAS FASTINGP ERFORMED BY: PAT [facility] Lqchlw7027 [address] RoadDublin [place] [id number] LIPID PANEL ([id number])Ordered B y: Histotechnician on 02-18-2018 Cholesterol in HDL mass conc 50 mg/dL Normal [facility] Work Phone: Comment on above: PATIENT WAS FASTINGP ERFORMED BY: PAT [facility] Zwypri4047 [address] RoadDublin [place] [id number] Cholesterol in LDL mass conc 92 mg/dL Normal 0-99 [facility] Work Phone: Comment on above: PATIENT WAS FASTINGP ERFORMED BY: PAT [facility] Wsazuf7434 [address] RoadDublin [place] [id number] Cholesterol in LDL/Cholesterol in HDL mass ratio 1.8 {ratio} Normal 0.0-3.2 [facility] Work Phone: Comment on above: LDL/HDL Ratio Men Wo men 1/2 Avg.Risk 1.0 1.5 Avg.Risk 3.6 3.2 2X Avg.Risk 6.2 5.0 3X Avg.Risk 8.0 6.1 PATIENT WAS FASTINGP ERFORMED BY: PAT LabCosarah Mgeoro4730 [address] RoadDublin [place] [id number] Cholesterol in VLDL mass conc 15 mg/dL Normal 5-40 [facility] Work Phone: Comment on above: PATIENT WAS FASTINGP ERFORMED BY: PAT LabCosarah Ntyzco9804 [address] RoadDublin [place] [id number] Cholesterol mass conc 157 mg/dL Normal 100-199 Com prehensive Internal Medicine Work Phone: Comment on above: PATIENT WAS FASTINGP ERFORMED BY: PAT [facility] Zafdvz8094 [address] RoadDublin [place] [id number] Triglyceride mass conc 75 mg/dL Normal 0-149 Co mprehensive Internal Medicine Work Phone: Comment on above: PATIENT WAS FASTINGP ERFORMED BY: PAT [facility] Hquugs8618 [address] RoadDublin [place] [id number] METABOLIC PANEL, COMPREHENSI VE ([id number])Ordered By: Histotechnician on 02-18-2018 Albumin mass conc 4.2 g/dL Normal 3.5-5.5 [facility] Internal Medicine Work Phone: Comment on above: PATIENT WAS FASTINGP ERFORMED BY: PAT [facility] Awsdvp5832 [address] RoadDublin [place] [id number] Albumin/Globulin mass ratio 1.8 {ratio} Normal 1.2-2.2 [facility] Internal Medicine Work Phone: Comment on above: PATIENT WAS FASTINGP ERFORMED BY: CB [facility] Syyeuu2567 [address] RoadDublin [place] [id number] ALP [Catalytic activity/Vol] 80 U/L Normal 39-117 [facility]; [facility] Internal Medicine Work Phone: Comment on above: PATIENT WAS FASTINGP ERFORMED BY: PAT [facility] Dvqdgi6060 [address] RoadDublin [place] [id number] ALP enzyme act/vol 80 [iU]/L Normal 39-117 [facility] Internal Medicine Work Phone: Comment on above: PATIENT WAS FASTINGP ERFORMED BY: CB [facility] Vjpkez1603 [address] RoadDublin [place] [id number] ALT [Catalytic activity/Vol] 11 U/L Normal 0-32 [facility]; [facility] Internal Medicine Work Phone: Comment on above: PATIENT WAS FASTINGP ERFORMED BY: [facility] Jezlma0582 [address] RoadDublin [place] [id number] ALT enzyme act/vol 11 [iU]/L Normal 0-32 [facility] Internal Medicine Work Phone: Comment on above: PATIENT WAS FASTINGP ERFORMED BY: CB [facility] Tysecq4173 [address]Dublin [place] [id number] AST [Catalytic activity/Vol] 12 U/L Normal 0-40 [facility] Internal Medicine; [facility] Internal Medicine Work Phone: Comment on above: PATIENT WAS FASTINGP ERFORMED BY: CB [facility] Ilzuad0255 [address] RoadDublin [place] [id number] AST enzyme act/vol 12 [iU]/L Normal 0-40 [facility] Internal Medicine Work Phone: Comment on above: PATIENT WAS FASTINGP ERFORMED BY: PAT [facility] Gxftaz9703 [address] RoadDublin [place] [id number] Bilirubin mass conc 0.7 mg/dL Normal 0.0-1.2 [facility] Work Phone: Comment on above: PATIENT WAS FASTINGP ERFORMED BY: PAT [facility] Wmbkds8784 [address] Roadblin [place] [id number] Calcium mass conc 9.2 mg/dL Normal 8.7-10.[address] [facility]ive Internal Medicine Work Phone: Comment on above: PATIENT WAS FASTINGP ERFORMED BY: PAT [facility] Lmroof[address] [facility] [id number] Chloride molar conc 102 mmol/L Normal 96-106 [facility] Internal Medicine Work Phone: Comment on above: PATIENT WAS FASTINGP ERFORMED BY: PAT LabCosarah BuchananLvxcjw3987 [address] [facility] [id number] CO2 molar conc 23 mmol/L Normal 20-29 Comprehens catalina Internal Medicine Work Phone: Comment on above: PATIENT WAS FASTINGP ERFORMED BY: PAT LabMissy BuchananSodpwf19[address] [facility] [id number] Creatinine mass conc 0.79 mg/dL Normal 0.57-1.00 [facility] Internal Medicine Work Phone: Comment on above: PATIENT WAS FASTINGP ERFORMED BY: CB [facility] Hjntlx3185 Otero RoadAtrium Health [id number] GFR/1.73 sq M predicted among blacks CKD-EPI vol rate/area (S/P/Bld) 104 mL/min/1.73 Normal [facility] Work Phone: Comment on above: PATIENT WAS FASTINGP ERFORMED BY: PAT [facility] Qucyow[address] [facility]blin [place] [id number] GFR/1.73 sq M predicted among non-blacks CKD-EPI vol rate/area (S/P/Bld) 90 mL/min/1.73 Normal Comprehensiv e Internal Medicine Work Phone: Comment on above: PATIENT WAS FASTINGP ERFORMED BY: PAT [facility] Nmdqyr2661 [address]Dublin [place] [id number] Globulin Calculated mass conc (S) 2.3 g/dL Normal 1.5-4.5 [facility] Work Phone: Globulin mass conc (S) 2.3 g/dL Normal 1.5-4.5 Co mprehensive Internal Medicine Work Phone: Comment on above: PATIENT WAS FASTINGP ERFORMED BY: PAT [facility] Pirzes4661 [address]Dublin [place] [id number] Glucose mass conc 93 mg/dL Normal 65-99 Compreh ensive Internal Medicine Work Phone: Comment on above: PATIENT WAS FASTINGP ERFORMED BY: PAT [facility] Vmiuuz9411 [address] RoadDublin [place] [id number] Potassium molar conc 4.8 mmol/L Normal 3.5-5.2 Comp rehensive Internal Medicine Work Phone: Comment on above: PATIENT WAS FASTINGP ERFORMED BY: PAT [facility] Bjflko6791 [address] RoadDublin [place] [id number] Protein mass conc 6.5 g/dL Normal 6.0-8.5 Compreh ensive Internal Medicine Work Phone: Comment on above: PATIENT WAS FASTINGP ERFORMED BY: PAT [facility] Ibbigx0017 [address] RoadDublin [place] [id number] Sodium molar conc 140 mmol/L Normal 134-144 Compreh ensive Internal Medicine Work Phone: Comment on above: PATIENT WAS FASTINGP ERFORMED BY: PAT [facility] Mxgktn8879 [address] RoadDublin [place] [id number] Urea nitrogen mass conc 12 mg/dL Normal 6-24 [facility] Work Phone: Comment on above: PATIENT WAS FASTINGP ERFORMED BY: PAT [facility] Ltmkxl8894 [address] RoadDublin [place] [id number] Urea nitrogen/Creatinine mass ratio 15 mg/mg Normal 9-23 [facility] Work Phone: Comment on above: PATIENT WAS FASTINGP ERFORMED BY: PAT [facility] Euzwxq2889 [address] RoadDublin [place] [id number] MICROALBUMINOrdered By: Syst em Nursing Teacher on 02-18-2018 Albumin DL <= 20 mg/L (U) [Mass/Vol] mg/dL Normal [facility]; [facility] Work Phone: Comment on above: PATIENT WAS FASTINGP ERFORMED BY: PAT [facility] Xamxoz2251 [address] RoadDublin [place] [id number] Albumin DL <= 20 mg/L mass conc (U) mg/dL Normal [facility] Work Phone: Comment on above: PATIENT WAS FASTINGP ERFORMED BY: PAT [facility] Woqjwp9265 [address] RoadSentara Albemarle Medical Centerin [place] [id number] Albumin/Creatinine mass ratio (U) <2.9 Normal 0.0-30.0 [facility] Work Phone: Comment on above: Normal: 0.0 - 30.0 A lbuminuria: 31.0 - 300.0 Clinical albuminuria: >300.0 PATIENT WAS FASTINGP ERFORMED BY: PAT [facility] Tojgat0230 [address]blin [place] [id number] Creatinine mass conc (U) 104.4 mg/dL Normal [facility] Work Phone: Comment on above: PATIENT WAS FASTINGP ERFORMED BY: PAT [facility] Ewwbpi[address] [facility]in [place] [id number] Microscopic ExaminationOrder ed By: Histotechnician on 02-18-2018 Bacteria LM.HPF #/area (Urine sed) Few Normal [facility] Work Phone: Comment on above: PATIENT WAS FASTINGP ERFORMED BY: PAT [facility] Qkybod8403 [address] RoadDublin [place] [id number] Epithelial cells LM.HPF #/area (Urine sed) 0-10 Normal 0 - 10 [facility] Work Phone: Comment on above: PATIENT WAS FASTINGP ERFORMED BY: PAT [facility] Ajbwrj0242 [address] RoadDublin [place] [id number] Mucus LM Ql (Urine sed) Present Normal [facility] Work Phone: Mucus Ql (Urine sed) Present Normal Comp rehensive Internal Medicine Work Phone: Comment on above: PATIENT WAS FASTINGP ERFORMED BY: PAT [facility] Npbpep9851 [address] RoadDublin [place] [id number] RBC LM.HPF #/area (Urine sed) None seen Normal 0 - 2 [facility] Work Phone: Comment on above: PATIENT WAS FASTINGP ERFORMED BY: PAT [facility] Whbemh1462 [address] RoadDublin [place] [id number] WBC LM.HPF #/area (Urine sed) 0-5 Normal 0 - 5 [facility] Work Phone: Comment on above: PATIENT WAS FASTINGP ERFORMED BY: PTA [facility] Avggof0453 [address] RoadDublin [place] [id number] TSH ([id number])Ordered By: Syste m Nursing Teacher on 02-18-2018 Thyrotropin Qn 2.070 {uIU/mL} Normal 0.450-4.500 Compr ehensive Internal Medicine Work Phone: Comment on above: PATIENT WAS FASTINGP ERFORMED BY: PAT [facility] Baviby5334 [address] RoadDublin [place] [id number] URINALYSIS, W/ MICRO ([id number]) Ordered By: Histotechnician on 02-18-2018 Appearance Nom (U) Clear Normal Compre hensive Internal Medicine Work Phone: Comment on above: PATIENT WAS FASTINGP ERFORMED BY: PAT [facility] Dulnyk9467 [address] RoadDublin [place] [id number] Bilirubin Ql (U) Negative Normal Comprehe nsive Internal Medicine Work Phone: Comment on above: PATIENT WAS FASTINGP ERFORMED BY: PAT [facility] Eytfri9253 [address]Dublin [place] [id number] Bilirubin Ql (U) Negative Normal Comprehe nsive Internal Medicine; [facility] Work Phone: Comment on above: PATIENT WAS FASTINGP ERFORMED BY: PAT [facility] Mttodi2078 [address]Dublin [place] [id number] Color Nom (U) Yellow Normal Comprehensi ve Internal Medicine Work Phone: Comment on above: PATIENT WAS FASTINGP ERFORMED BY: PAT Sutherland70 [address]Dublin [place] [id number] Glucose Ql (U) Negative Normal [facility] Work Phone: Comment on above: PATIENT WAS FASTINGP ERFORMED BY: PAT Sutherland70 [address]Dublin [place] [id number] Glucose Ql (U) Negative Normal [facility]; [facility] Work Phone: Comment on above: PATIENT WAS FASTINGP ERFORMED BY: PAT Sutherland70 [address]Dublin [place] [id number] Hemoglobin Ql (U) Negative Normal Compreh ensive Internal Medicine Work Phone: Comment on above: PATIENT WAS FASTINGP ERFORMED BY: PAT Badillo [address]o RoadDublin [place] [id number] Hemoglobin Ql (U) Negative Normal Compreh ensive [facility]; [facility] Work Phone: Comment on above: PATIENT WAS FASTINGP ERFORMED BY: PAT Sutherland70 [address]Dublin [place] [id number] Hemoglobin Test strip Ql (U) Negative Normal [facility] Work Phone: Ketones Ql (U) Negative Normal [facility] Work Phone: Comment on above: PATIENT WAS FASTINGP ERFORMED BY: PAT Buchananlin6[address] RoadDublin [place] [id number] Ketones Ql (U) Negative Normal [facility]; [facility] Work Phone: Comment on above: PATIENT WAS FASTINGP ERFORMED BY: PAT Olvera6[address]Dublin [place] [id number] Leukocyte esterase Test strip Ql (U) Negative Normal [facility] Work Phone: Comment on above: PATIENT WAS FASTINGP ERFORMED BY: PAT Olvera6[address]Dublin [place] [id number] Leukocyte esterase Test strip Ql (U) Negative Normal [facility]; [facility] Work Phone: Comment on above: PATIENT WAS FASTINGP ERFORMED BY: PAT Buchananlin[address] [facility] [id number] Microscopic observation LM Nom (Urine sed) See below: Normal [facility] Work Phone: Comment on above: Microscopic was justo cated and was performed. PATIENT WAS FASTINGP ERFORMED BY: PAT Sánchze Kzivwx[address] [facility] [id number] Microscopic observation LM Nom (Urine sed) MICRON Normal [facility] Work Phone: Comment on above: Microscopic follows if indicated. PATIENT WAS FASTINGP ERFORMED BY: PAT Buchananlin[address] [facility] [id number] Nitrite Ql (U) Negative Normal [facility] Work Phone: Comment on above: PATIENT WAS FASTINGP ERFORMED BY: PAT Buchananlin6370 [facility] [id number] Nitrite Ql (U) Negative Normal [facility]; [facility] Work Phone: Comment on above: PATIENT WAS FASTINGP ERFORMED BY: PAT Buchananlin6370 [facility] [id number] Nitrite Test strip Ql (U) Negative Normal [facility] Work Phone: pH (U) 6.0 [pH] Normal 5.0-7.5 [facility] Work Phone: Comment on above: PATIENT WAS FASTINGP ERFORMED BY: PAT [facility] Uyalmu[address] [facility] [id number] pH Test strip (U) 6.0 [pH] Normal 5.0-7.5 Compreh ens[facility] Work Phone: Protein Ql (U) Negative Normal [facility] Work Phone: Comment on above: PATIENT WAS FASTINGP ERFORMED BY: PAT [facility] Yeuaos0485 [address] RoadSentara Albemarle Medical Centerin [place] [id number] Protein Ql (U) Negative Normal [facility]; [facility] Work Phone: Comment on above: PATIENT WAS FASTINGP ERFORMED BY: PAT LabCosarah BuchananImojyt2404 [address]Dublin [place] [id number] Protein Test strip Ql (U) Negative Normal [facility] Work Phone: Specific gravity Relative Density (U) 1.018 1 Normal 1.005-1.030 Comprehensi ve Internal Medicine Work Phone: Comment on above: PATIENT WAS FASTINGP ERFORMED BY: PAT [facility] Iianuc5616 [address]blin [place] [id number] Urobilinogen (U) [Mass/Vol] 0.2 mg/dL Normal 0.2-1.0 [facility]; [facility] Work Phone: Comment on above: PATIENT WAS FASTINGP ERFORMED BY: PAT LabCo Lddtzt8947 [address]blin [place] [id number] Urobilinogen Test strip mass conc (U) 0.2 mg/dL Normal 0.2-1.0 Comprehensiv e Internal Medicine Work Phone: Comment on above: PATIENT WAS FASTINGP ERFORMED BY: PAT LabCo Laafyl[address] [facility] Centerblin [place] [id number] METABOLIC PANEL, COMPREHENSI VE ([id number])Ordered By: Histotechnician on 03-15-2017 Albumin mass conc 4.1 g/dL Normal 3.5-5.5 Compreh ensive [facility] Medicine Work Phone: Comment on above: PATIENT NOT FASTINGP ERFORMED BY: PAT [facility] Pcecvg7628 [address] RoadDublin [place] [id number]; can review on 03/25 Albumin/Globulin mass ratio 1.4 {ratio} Normal 1.2-2.2 [facility] Work Phone: Comment on above: PATIENT NOT FASTINGP ERFORMED BY: PAT [facility] Dvghbz5068 [address] RoadDublin [place] [id number]; can review on 03/25 ALP [Catalytic activity/Vol] 90 U/L Normal 39-117 [facility]; [facility] Internal Medicine Work Phone: Comment on above: PATIENT NOT FASTINGP ERFORMED BY: CB [facility] Mcobmv0[address]Dublin [place] [id number]; can review on 03/25 ALP enzyme act/vol 90 [iU]/L Normal 39-117 [facility] Internal Medicine Work Phone: Comment on above: PATIENT NOT FASTINGP ERFORMED BY: CB [facility] Oaowre77[address]Dublin [place] [id number]; can review on 03/25 ALT [Catalytic activity/Vol] 17 U/L Normal 0-32 [facility] Internal Medicine; [facility] Medicine Work Phone: Comment on above: PATIENT NOT FASTINGP ERFORMED BY: CB [facility] Gunmnb1733 [address] RoadDublin [place] [id number]; can review on 03/25 ALT enzyme act/vol 17 [iU]/L Normal 0-32 [facility] Internal Medicine Work Phone: Comment on above: PATIENT NOT FASTINGP ERFORMED BY: CB [facility] Tigwif3052 [address] RoadDublin [place] [id number]; can review on 03/25 AST [Catalytic activity/Vol] 17 U/L Normal 0-40 [facility] Internal Medicine; [facility] Work Phone: Comment on above: PATIENT NOT FASTINGP ERFORMED BY: CB [facility] Uljzqa9420 [address] RoadDublin [place] [id number]; can review on 03/25 AST enzyme act/vol 17 [iU]/L Normal 0-40 [facility] Internal Medicine Work Phone: Comment on above: PATIENT NOT FASTINGP ERFORMED BY: CB [facility] Npxvch3201 [address] RoadDublin [place] [id number]; can review on 03/25 Bilirubin mass conc 0.6 mg/dL Normal 0.0-1.2 [facility] Internal Medicine Work Phone: Comment on above: PATIENT NOT FASTINGP ERFORMED BY: CB [facility] Iuaucl8292 [address] RoadDublin [place] [id number]; can review on 03/25 Calcium mass conc 9.2 mg/dL Normal 8.7-10.2 Compreh ensive Internal Medicine Work Phone: Comment on above: PATIENT NOT FASTINGP ERFORMED BY: PAT [facility] Evtovy0455 [address] RoadDublin [place] [id number]; can review on 03/25 Chloride molar conc 99 mmol/L Normal 96-106 Compr ehensive Internal Medicine Work Phone: Comment on above: PATIENT NOT FASTINGP ERFORMED BY: CB [facility] Zkyiex4552 [address] RoadDublin [place] [id number]; can review on 03/25 CO2 molar conc 24 mmol/L Normal 18-29 [facility] Work Phone: Comment on above: PATIENT NOT FASTINGP ERFORMED BY: PAT [facility] Rgiosw2071 [address] RoadDublin [place] [id number]; can review on 03/25 Creatinine mass conc 0.81 mg/dL Normal 0.57-1.00 [facility]ensive [facility] Work Phone: Comment on above: PATIENT NOT FASTINGP ERFORMED BY: PAT [facility] Feyzyi0335 [address] RoadDublin [place] [id number]; can review on 03/25 GFR/1.73 sq M predicted among blacks CKD-EPI vol rate/area (S/P/Bld) 101 mL/min/1.73 Normal [facility] Work Phone: Comment on above: PATIENT NOT FASTINGP ERFORMED BY: CB [facility] Jzzygt7888 [address] RoadDublin [place] [id number]; can review on 03/25 GFR/1.73 sq M predicted among non-blacks CKD-EPI vol rate/area (S/P/Bld) 88 mL/min/1.73 Normal Comprehensiv e Internal Medicine Work Phone: Comment on above: PATIENT NOT FASTINGP ERFORMED BY: CB [facility] Bcqzlw0461 [address]Dublin [place] [id number]; can review on 03/25 Globulin Calculated mass conc (S) 3.0 g/dL Normal 1.5-4.5 [facility] Work Phone: Globulin mass conc (S) 3.0 g/dL Normal 1.5-4.5 Co mprehensive [facility] Work Phone: Comment on above: PATIENT NOT FASTINGP ERFORMED BY: CB [facility] Alortg8430 [address] RoadDublin [place] [id number]; can review on 03/25 Glucose mass conc 86 mg/dL Normal 65-99 Compreh ensive [facility] Medicine Work Phone: Comment on above: PATIENT NOT FASTINGP ERFORMED BY: CB [facility] Wrcznx0747 [address] RoadDublin [place] [id number]; can review on 03/25 Potassium molar conc 4.9 mmol/L Normal 3.5-5.2 Comp [facility] Work Phone: Comment on above: PATIENT NOT FASTINGP ERFORMED BY: CB [facility] Kyxqbo8550 [address] RoadSentara Albemarle [facility] Centerin [place] [id number]; can review on 03/25 Protein mass conc 7.1 g/dL Normal 6.0-8.5 Compreh ensive [facility] Medicine Work Phone: Comment on above: PATIENT NOT FASTINGP ERFORMED BY: CB [facility] Umweos1218 [address]Dublin [place] [id number]; can review on 03/25 Sodium molar conc 140 mmol/L Normal 134-144 Compreh ensive Internal Medicine Work Phone: Comment on above: PATIENT NOT FASTINGP ERFORMED BY: CB [facility] Ucmstz8342 [address] RoadSentara Albemarle Medical Centerin [place] [id number]; can review on 03/25 Urea nitrogen mass conc 12 mg/dL Normal 6-24 [facility] Work Phone: Comment on above: PATIENT NOT FASTINGP ERFORMED BY: CB [facility] Fdhhjf6546 [address] RoadDublin [place] [id number]; can review on 03/25 Urea nitrogen/Creatinine mass ratio 15 mg/mg Normal 9-23 [facility] Work Phone: Comment on above: PATIENT NOT FASTINGP ERFORMED BY: PAT [facility] Hdsqon1759 [address] RoadDublin [place] [id number]; can review on 03/25 LIPID PANEL ([id number])Ordered B y: Histotechnician on 03-10-2017 Cholesterol in HDL mass conc 50 mg/dL Normal [facility] Work Phone: Comment on above: PATIENT NOT FASTINGP ERFORMED BY: PAT [facility] Vhtmqj8473 [address] RoadDublin [place] [id number] Cholesterol in LDL mass conc 103 mg/dL Abnormal 0-99 [facility] Work Phone: Comment on above: PATIENT NOT FASTINGP ERFORMED BY: PAT [facility] Kibvgs9532 [address]Dublin [place] [id number] Cholesterol in LDL/Cholesterol in HDL mass ratio 2.1 {ratio_units} Normal 0.0-3.2 [facility] Work Phone: Comment on above: LDL/HDL Ratio Men Wo men 1/2 Avg.Risk 1.0 1.5 Avg.Risk 3.6 3.2 2X Avg.Risk 6.2 5.0 3X Avg.Risk 8.0 6.1 PATIENT NOT FASTINGP ERFORMED BY: PAT [facility] Itomtr3389 [address] RoadDublin [place] [id number] Cholesterol in VLDL mass conc 33 mg/dL Normal 5-40 [facility] Work Phone: Comment on above: PATIENT NOT FASTINGP ERFORMED BY: PAT [facility] Lcwfmo9603 [address] RoadDublin [place] [id number] Cholesterol mass conc 186 mg/dL Normal 100-199 Com prehensive Internal Medicine Work Phone: Comment on above: PATIENT NOT FASTINGP ERFORMED BY: CB [facility] Cwsjho3086 [address] RoadDublin [place] [id number] Triglyceride mass conc 165 mg/dL Abnormal 0-149 Co mprehensive [facility] Work Phone: Comment on above: PATIENT NOT FASTINGP ERFORMED BY: PAT [facility] Gqsilf5906 [address] RoadDublin [place] [id number] CALCIFEDIOL ([id number])Ordered B y: Histotechnician on 01-17-2016 25-Hydroxyvitamin D2+25-Hydroxyvitamin D3 mass conc 32.7 ng/mL Normal 30.0-100.0 [facility] Work Phone: Comment on above: Vitamin D deficiency has been defined by the [place] of[place]icine and an Endocrine Society practice guideline as alevel of serum 25-OH vitamin D less than 20 ng/mL (1,2).The Endocrine Society went on to further define vitamin Dinsufficiency as a level between 21 and 29 ng/mL (2).1. IOM ([place] of Medicine). 2010. Dietary reference intakes for calcium and D. [place]: The National Academies Press.2. Connie MF, Sriram NC, Fabiola ZARATE, et al. Evaluation, treatment, and prevention of vitamin D deficiency: an Endocrine Society clinical practice guideline. JCEM. 2010; 96(7):1911-30. PATIENT WAS FASTINGP ERFORMED BY: CB [facility] Pknvlq8805 [address] RoadDublin [place] [id number] CBC, PLATELETS & AUT DIFF (1 [id number])Ordered By: Histotechnician on 01-17-2016 Basophils #/vol (Bld) 0.1 {x10E3/uL} Normal 0.0-0.2 [facility] Work Phone: Comment on above: PATIENT WAS FASTINGP ERFORMED BY: LawDeck [facility] Izfboo5480 [address]o RoadDublin [place] [id number] Basophils (Bld) [#/Vol] 0.1 10*3/uL Normal 0.0-0.2 [facility]; [facility] Work Phone: Comment on above: PATIENT WAS FASTINGP ERFORMED BY: CB [facility] Nethts9197 [address] RoadDublin [place] [id number] Basophils Auto #/vol (Bld) 0.1 {x10E3/uL} Normal 0.0-0.2 [facility] Work Phone: Basophils/100 WBC (Bld) 1 % Normal [facility] Work Phone: Comment on above: PATIENT WAS FASTINGP ERFORMED BY: [employer] [facility] Luwxdl1008 [facility] [id number] Basophils/100 WBC Auto (Bld) 1 % Normal [facility] Work Phone: Eosinophils #/vol (Bld) 0.1 {x10E3/uL} Normal 0.0-0.4 [facility] Work Phone: Comment on above: PATIENT WAS FASTINGP ERFORMED BY: PAT [place] [id number] [facility] [id number] Eosinophils (Bld) [#/Vol] 0.1 10*3/uL Normal 0.0-0.4 [facility]; [facility] Work Phone: Comment on above: PATIENT WAS FASTINGP ERFORMED BY: PAT [facility] Hetkmj2483 [facility] [id number] Eosinophils Auto #/vol (Bld) 0.1 {x10E3/uL} Normal 0.0-0.4 [facility] Work Phone: Eosinophils/100 WBC (Bld) 1 % Normal [facility] Work Phone: Comment on above: PATIENT WAS FASTINGP ERFORMED BY: PAT [facility]6370 [facility] [id number] Eosinophils/100 WBC Auto (Bld) 1 % Normal [facility] Work Phone: Erythrocyte distribution width Auto Ratio (RBC) 12.7 % Normal 12.3-15.4 [facility] Work Phone: Erythrocyte distribution width Ratio (RBC) 12.7 % Normal 12.3-15.4 [facility] Work Phone: Comment on above: PATIENT WAS FASTINGP ERFORMED BY: [place] [id number] [facility] [id number] Hematocrit Auto Volume Fraction (Bld) 39.7 % Normal 34.0-46.6 [facility] Work Phone: Hematocrit Volume Fraction (Bld) 39.7 % Normal 34.0-46.6 [facility] Work Phone: Comment on above: PATIENT WAS FASTINGP ERFORMED BY: [place] 4046970 [facility] [id number] Hemoglobin mass conc (Bld) 13.4 g/dL Normal 11.1-15.9 [facility] Work Phone: Comment on above: PATIENT WAS FASTINGP ERFORMED BY: [place] 4046970 [facility] [id number] Immature granulocytes #/vol (Bld) 0.0 {x10E3/uL} Normal 0.0-0.1 [facility] Work Phone: Comment on above: PATIENT WAS FASTINGP ERFORMED BY: [address] [id number] Immature granulocytes (Bld) [#/Vol] 0.0 10*3/uL Normal 0.0-0.1 [facility]; [facility] Work Phone: Comment on above: PATIENT WAS FASTINGP ERFORMED BY: [address] [id number] Immature granulocytes/100 WBC (Bld) 0 % Normal [facility] Work Phone: Comment on above: PATIENT WAS FASTINGP ERFORMED BY: [address] [id number] Lymphocytes #/vol (Bld) 1.5 {x10E3/uL} Normal 0.7-3.1 [facility] Work Phone: Comment on above: PATIENT WAS FASTINGP ERFORMED BY: [place] [id number] [facility] [id number] Lymphocytes (Bld) [#/Vol] 1.5 10*3/uL Normal 0.7-3.1 [facility]; [facility] Work Phone: Comment on above: PATIENT WAS FASTINGP ERFORMED BY: [place] 4046970 [facility] [id number] Lymphocytes Auto #/vol (Bld) 1.5 {x10E3/uL} Normal 0.7-3.1 [facility] Work Phone: Lymphocytes/100 WBC (Bld) 34 % Normal [facility] Work Phone: Comment on above: PATIENT WAS FASTINGP ERFORMED BY: PAT [facility] HospitalMissy BuchananAtuscb7528 [facility] [id number] Lymphocytes/100 WBC Auto (Bld) 34 % Normal [facility] Work Phone: MCH Auto Entitic mass (RBC) 30.5 pg Normal 26.6-33.0 [facility] Work Phone: MCH Entitic mass (RBC) 30.5 pg Normal 26.6-33.0 Co [facility] Internal Medicine Work Phone: Comment on above: PATIENT WAS FASTINGP ERFORMED BY: PAT [facility] HospitalMissy BuchananGfybzd7161 [facility] [id number] MCHC Auto mass conc (RBC) 33.8 g/dL Normal 31.5-35.7 [facility] Work Phone: MCHC mass conc (RBC) 33.8 g/dL Normal 31.5-35.7 [facility] Internal Medicine Work Phone: Comment on above: PATIENT WAS FASTINGP ERFORMED BY: PAT Florez Bafhlq9027 [facility] [id number] MCV Auto Entitic volume (RBC) 90 fL Normal 79-97 [facility] Work Phone: MCV Entitic volume (RBC) 90 fL Normal 79-97 [facility] Work Phone: Comment on above: PATIENT WAS FASTINGP ERFORMED BY: PAT [place] [id number] [facility] [id number] Monocytes #/vol (Bld) 0.2 {x10E3/uL} Normal 0.1-0.9 [facility] Work Phone: Comment on above: PATIENT WAS FASTINGP ERFORMED BY: PAT [place] [id number] [facility] [id number] Monocytes (Bld) [#/Vol] 0.2 10*3/uL Normal 0.1-0.9 [facility]; [facility] Work Phone: Comment on above: PATIENT WAS FASTINGP ERFORMED BY: PAT Buchananlin6370 [facility] [id number] Monocytes Auto #/vol (Bld) 0.2 {x10E3/uL} Normal 0.1-0.9 [facility] Work Phone: Monocytes/100 WBC (Bld) 5 % Normal [facility] Work Phone: Comment on above: PATIENT WAS FASTINGP ERFORMED BY: PAT LabPatricia Frzdqh4357 [facility] [id number] Monocytes/100 WBC Auto (Bld) 5 % Normal [facility] Work Phone: Neutrophils #/vol (Bld) 2.6 {x10E3/uL} Normal 1.4-7.0 [facility] Work Phone: Comment on above: PATIENT WAS FASTINGP ERFORMED BY: PAT Buchananlin6370 [facility] [id number] Neutrophils (Bld) [#/Vol] 2.6 10*3/uL Normal 1.4-7.0 [facility]; [facility] Work Phone: Comment on above: PATIENT WAS FASTINGP ERFORMED BY: PAT Olvera6370 [facility] [id number] Neutrophils Auto #/vol (Bld) 2.6 {x10E3/uL} Normal 1.4-7.0 [facility] Work Phone: Neutrophils/100 WBC (Bld) 59 % Normal [facility] Work Phone: Comment on above: PATIENT WAS FASTINGP ERFORMED BY: PAT [facility] Omloai2658 [facility] [id number] Neutrophils/100 WBC Auto (Bld) 59 % Normal [facility] Work Phone: Platelets #/vol (Bld) 310 {x10E3/uL} Normal 150-379 [facility] Work Phone: Comment on above: PATIENT WAS FASTINGP ERFORMED BY: PAT [facility] Izahpq9417 [address]Dublin [place] [id number] Platelets (Bld) [#/Vol] 310 10*3/uL Normal 150-379 [facility]; [facility] Work Phone: Comment on above: PATIENT WAS FASTINGP ERFORMED BY: PAT [facility] Xzsjfz4178 [address] RoadDublin [place] [id number] Platelets Auto #/vol (Bld) 310 {x10E3/uL} Normal 150-379 [facility] Work Phone: RBC #/vol (Bld) 4.39 {x10E6/uL} Normal 3.77-5.28 Comp [facility] Internal Medicine Work Phone: Comment on above: PATIENT WAS FASTINGP ERFORMED BY: PAT Lab[facility] Vlddww3000 [address]o RoadSentara Albemarle Medical Centerin [place] [id number] RBC (Bld) [#/Vol] 4.39 10*6/uL Normal 3.77-5.28 Compr ensive Internal Medicine; [facility] Work Phone: Comment on above: PATIENT WAS FASTINGP ERFORMED BY: PAT LabMiss[facility] Tlnohj8572 [address]o RoadSentara Albemarle Medical Centerin [place] [id number] RBC Auto #/vol (Bld) 4.39 {x10E6/uL} Normal 3.77-5.28 [facility] Work Phone: WBC #/vol (Bld) 4.5 {x10E3/uL} Normal 3.4-10.8 [facility] Work Phone: Comment on above: PATIENT WAS FASTINGP ERFORMED BY: PAT LabCoMonmouth Medical CenterRrcdjb4245 [address] RoadDublin [place] [id number] WBC (Bld) [#/Vol] 4.5 10*3/uL Normal 3.4-10.8 Compre [facility] Internal Medicine; [facility] Work Phone: Comment on above: PATIENT WAS FASTINGP ERFORMED BY: LabCo Ucetiq8053 [address] RoadDublin [place] [id number] WBC Auto #/vol (Bld) 4.5 {x10E3/uL} Normal 3.4-10.8 [facility] Work Phone: LIPID PANEL ([id number])Ordered B y: Histotechnician on 01-17-2016 Cholesterol in HDL mass conc 57 mg/dL Normal [facility] Work Phone: Comment on above: According to ATP-III Guidelines, HDL-C >59 mg/dL is considered anegative risk factor for CHD. PATIENT WAS FASTINGP ERFORMED BY: PAT Olvera6370 [facility] [id number] Cholesterol in LDL mass conc 106 mg/dL Abnormal 0-99 [facility] Work Phone: Comment on above: PATIENT WAS FASTINGP ERFORMED BY: PAT Buchananlin6370 [facility] [id number] Cholesterol in LDL/Cholesterol in HDL mass ratio 1.9 {ratio_units} Normal 0.0-3.2 [facility] Work Phone: Comment on above: LDL/HDL Ratio Men Wo men 1/2 Avg.Risk 1.0 1.5 Avg.Risk 3.6 3.2 2X Avg.Risk 6.2 5.0 3X Avg.Risk 8.0 6.1 PATIENT WAS FASTINGP ERFORMED BY: PAT Buchananlin6370 [facility] [id number] Cholesterol in VLDL mass conc 27 mg/dL Normal 5-40 [facility] Work Phone: Comment on above: PATIENT WAS FASTINGP ERFORMED BY: PAT Buchananlin6370 [facility] [id number] Cholesterol mass conc 190 mg/dL Normal 100-199 Com prehensive Internal Medicine Work Phone: Comment on above: PATIENT WAS FASTINGP ERFORMED BY: PAT LabMissy BuchananWijxxp3409 [facility] [id number] Triglyceride mass conc 134 mg/dL Normal 0-149 Co mprehensive [facility] Medicine Work Phone: Comment on above: PATIENT WAS FASTINGP ERFORMED BY: PAT LabMissy BuchananOhdoxf0102 [address] RoadDublin [place] [id number] METABOLIC PANEL, COMPREHENSI VE ([id number])Ordered By: Histotechnician on 01-17-2016 Albumin mass conc 3.8 g/dL Normal 3.5-5.5 Compreh [facility] Internal Medicine Work Phone: Comment on above: PATIENT WAS FASTINGP ERFORMED BY: APT [facility] Tfqmkf5749 [address] RoadDublin [place] [id number] Albumin/Globulin mass ratio 1.4 {ratio} Normal 1.1-2.5 [facility] Work Phone: Comment on above: PATIENT WAS FASTINGP ERFORMED BY: PAT [facility] Gabzne0361 [address] RoadDublin [place] [id number] ALP [Catalytic activity/Vol] 74 U/L Normal 39-117 [facility]; [facility] Work Phone: Comment on above: PATIENT WAS FASTINGP ERFORMED BY: PAT LabCosarah BuchananQjhoph2554 [address] RoadDublin [place] [id number] ALP enzyme act/vol 74 [iU]/L Normal 39-117 [facility] Internal Medicine Work Phone: Comment on above: PATIENT WAS FASTINGP ERFORMED BY: PAT [facility] Doornv2056 [address] RoadDublin [place] [id number] ALT [Catalytic activity/Vol] 11 U/L Normal 0-32 [facility]; [facility] Work Phone: Comment on above: PATIENT WAS FASTINGP ERFORMED BY: PAT [facility] Maovxf3520 [address] RoadDublin [place] [id number] ALT enzyme act/vol 11 [iU]/L Normal 0-32 [facility] Internal Medicine Work Phone: Comment on above: PATIENT WAS FASTINGP ERFORMED BY: PAT [facility] Blptht4108 [address] RoadDublin [place] [id number] AST [Catalytic activity/Vol] 9 U/L Normal 0-40 [facility]; [facility] Work Phone: Comment on above: PATIENT WAS FASTINGP ERFORMED BY: PAT [facility] Ixfnpt1238 [address] RoadDublin [place] [id number] AST enzyme act/vol 9 [iU]/L Normal 0-40 [facility] Internal Medicine Work Phone: Comment on above: PATIENT WAS FASTINGP ERFORMED BY: PAT [facility] Nqgmsf8183 [address]blin [place] [id number] Bilirubin mass conc 0.5 mg/dL Normal 0.0-1.2 Compr ensive Internal Medicine Work Phone: Comment on above: PATIENT WAS FASTINGP ERFORMED BY: CB [facility] Cbjytv5605 [address] RoadSentara Albem[facility] Centerin [place] [id number] Calcium mass conc 8.9 mg/dL Normal 8.7-10.[address] [facility] Internal Medicine Work Phone: Comment on above: PATIENT WAS FASTINGP ERFORMED BY: PAT [facility] Pkqahh[address] [facility] [id number] Chloride molar conc 100 mmol/L Normal 97-108 Compr [facility] Internal Medicine Work Phone: Comment on above: PATIENT WAS FASTINGP ERFORMED BY: PAT [facility] Hxyvzw2908 [address] [facility] [place] [id number] CO2 molar conc 21 mmol/L Normal 18-29 Comprehens [facility] Internal Medicine Work Phone: Comment on above: PATIENT WAS FASTINGP ERFORMED BY: PAT [facility] Nyykxs[address] [facility] [id number] Creatinine mass conc 0.91 mg/dL Normal 0.57-1.00 Comp [facility] Internal Medicine Work Phone: Comment on above: PATIENT WAS FASTINGP ERFORMED BY: CB [facility] Sbrpzj4657 [address] RoadSentara Albemarle Medical Centerin [place] [id number] GFR/1.73 sq M predicted among blacks CKD-EPI vol rate/area (S/P/Bld) 89 mL/min/1.73 Normal [facility] Work Phone: Comment on above: PATIENT WAS FASTINGP ERFORMED BY: CB [facility] Ptofsi5513 [address] RoadSentara Albemarle Medical Centerin [place] [id number] GFR/1.73 sq M predicted among non-blacks CKD-EPI vol rate/area (S/P/Bld) 77 mL/min/1.73 Normal Comprehensiv e Internal Medicine Work Phone: Comment on above: PATIENT WAS FASTINGP ERFORMED BY: PAT Buchananlin6370 [facility] [id number] Globulin Calculated mass conc (S) 2.8 g/dL Normal 1.5-4.5 [facility] Work Phone: Globulin mass conc (S) 2.8 g/dL Normal 1.5-4.5 Co mprehensive Internal Medicine Work Phone: Comment on above: PATIENT WAS FASTINGP ERFORMED BY: PAT Olvera6370 [facility] [id number] Glucose mass conc 104 mg/dL Abnormal 65-99 Compreh ensive Internal Medicine Work Phone: Comment on above: PATIENT WAS FASTINGP ERFORMED BY: PAT Olvera6370 [facility] [id number] Potassium molar conc 4.7 mmol/L Normal 3.5-5.2 Comp rehensive Internal Medicine Work Phone: Comment on above: PATIENT WAS FASTINGP ERFORMED BY: PAT Olvera6370 [facility] [id number] Protein mass conc 6.6 g/dL Normal 6.0-8.5 Compreh ensive Internal Medicine Work Phone: Comment on above: PATIENT WAS FASTINGP ERFORMED BY: PAT Buchananlin6370 [facility] [id number] Sodium molar conc 138 mmol/L Normal 134-144 Compreh ensive Internal Medicine Work Phone: Comment on above: PATIENT WAS FASTINGP ERFORMED BY: PAT Buchananlin6370 [facility] [id number] Urea nitrogen mass conc 15 mg/dL Normal 6-24 [facility] Work Phone: Comment on above: PATIENT WAS FASTINGP ERFORMED BY: PAT Buchananlin6370 [facility] [id number] Urea nitrogen/Creatinine mass ratio 16 mg/mg Normal 9-23 [facility] Work Phone: Comment on above: PATIENT WAS FASTINGP ERFORMED BY: PAT [facility] Czuyat9[address]Dublin [place] [id number] MICROALBUMINOrdered By: Syst em Nursing Teacher on 01-17-2016 Albumin DL <= 20 mg/L (U) [Mass/Vol] mg/dL Normal [facility]; [facility] Work Phone: Comment on above: PATIENT WAS FASTINGP ERFORMED BY: PAT [facility] Eudogc00[address]Dublin [place] [id number] Albumin DL <= 20 mg/L mass conc (U) mg/dL Normal [facility] Work Phone: Comment on above: PATIENT WAS FASTINGP ERFORMED BY: PAT [facility] Aqgvrq7099 [address] RoadSentara Albemarle Medical Centerin [place] [id number] Albumin/Creatinine mass ratio (U) <1.9 Normal 0.0-30.0 [facility] Work Phone: Comment on above: PATIENT WAS FASTINGP ERFORMED BY: PAT [facility] Qaykpt1279 [address] RoadDublin [place] [id number] Creatinine mass conc (U) 161.5 mg/dL Normal [facility] Work Phone: Comment on above: PATIENT WAS FASTINGP ERFORMED BY: PAT [facility] Mfdmpa[address] [facility]in [place] [id number] TSH (THYROID STIMULATING HOR ALEXEY) ([id number])Ordered By: Histotechnician on 01-17-2016 Thyrotropin Qn 2.660 {uIU/mL} Normal 0.450-4.500 Compr [facility] Internal Medicine Work Phone: Comment on above: PATIENT WAS FASTINGP ERFORMED BY: PAT [facility] Dbldmq1335 [address] [facility] [place] [id number] URINE BARBARA CULTURE-IDENTIFICA [place] (74049)Ordered By: Histotechnician on 01-14-2016 Bacteria identified Cx Nom (U) Final report Normal [facility] Work Phone: Comment on above: PATIENT NOT FASTINGP ERFORMED BY: [facility] Amsygw8068 [facility] [id number] Information: SRC:UC Bacteria identified Cx Nom (U) MUG Normal [facility] Work Phone: Comment on above: Mixed urogenital areil ra10,000-25,000 colony forming units per mL PATIENT NOT FASTINGP ERFORMED BY: [facility] Lzaoyy2798 [facility] [id number] Information: SRC:TUAN Urinalysis, Office ([id number])Or dered By: Barbie Kwok on 01-14-2016 Bilirubin Ql (U) Negative Normal Comprehe nsive Internal Medicine Work Phone: Bilirubin Ql (U) Negative Normal Comprehe nsive Internal Medicine; [facility] Work Phone: Glucose Test strip (U) [Mass/Vol] Negative Normal [facility]; [facility] Work Phone: Glucose Test strip mass conc (U) Negative Normal [facility] Work Phone: Hemoglobin Ql (U) Hemolyzed Small Normal Co mprehensive Internal Medicine Work Phone: Hemoglobin Test strip Ql (U) Hemolyzed Small Normal [facility] Work Phone: Ketones Ql (U) Negative Normal Comprehens [place] [facility] Work Phone: Ketones Ql (U) Negative Normal Comprehens [facility]; [facility] Work Phone: Leukocyte esterase Test strip Ql (U) Small Normal [facility] Work Phone: Nitrite Ql (U) Negative Normal Comprehens [place] Internal [facility] Work Phone: Nitrite Ql (U) Negative Normal Comprehens [facility]; [facility] Work Phone: Nitrite Test strip Ql (U) Negative Normal [facility] Work Phone: pH (U) 6.0 [pH] Normal [facility] Work Phone: Comment on above: 5.5 pH Test strip (U) 6.0 [pH] Normal Compreh ensive Internal Medicine Work Phone: Comment on above: 5.5 Protein Ql (U) Negative Normal Comprehens [place] Internal Medicine Work Phone: Protein Ql (U) Negative Normal Comprehens [place]; [facility] Work Phone: Protein Test strip Ql (U) Negative Normal [facility] Work Phone: Specific gravity Relative Density (U) 1.015 1 Normal Comprehensi ve Internal Medicine Work Phone: Urobilinogen mass/time (24H U) Normal Normal [facility] Work Phone: HGB A1C (79367)Ordered By: Tylor ystem Nursing Teacher on 09-09-2015 Hemoglobin A1c/Hemoglobin.total mass fraction (Bld) 5.3 % Normal 4.8-5.6 Comprehensiv e Internal Medicine Work Phone: Comment on above: . Pre-diabetes: 5.7 - 6.4 Diabetes: >6.4 Glycemic control for adults with diabetes: <7.0 PATIENT NOT FASTINGP ERFORMED BY: Active Voice CorporationFormerly [facility] [id number] Information: [id number] Glucose (10927)Ordered By: S ystem Nursing Teacher on 06-14-2015 Glucose mass conc 104 mg/dL Abnormal 65-99 Compreh ensive Internal Medicine Work Phone: Comment on above: PATIENT WAS FASTINGP ERFORMED BY: [employer]70 Project TalentsAt[facility] Health [id number] LIPID PANEL ([id number])Ordered B y: Histotechnician on 06-14-2015 Cholesterol in HDL mass conc 53 mg/dL Normal [facility] Work Phone: Comment on above: According to ATP-III Guidelines, HDL-C >59 mg/dL is considered anegative risk factor for CHD. PATIENT WAS FASTINGP ERFORMED BY: [employer]70 IIZI groupFormerly [facility] [id number] Information: [id number] Cholesterol in LDL mass conc 113 mg/dL Abnormal 0-99 [facility] Work Phone: Comment on above: PATIENT WAS FASTINGP ERFORMED BY: PAT [facility] Gfjhao1982 [facility] [id number] Information: [id number] Cholesterol in LDL/Cholesterol in HDL mass ratio 2.1 {ratio_units} Normal 0.0-3.2 [facility] Work Phone: Comment on above: LDL/HDL Ratio Men Wo men 1/2 Avg.Risk 1.0 1.5 Avg.Risk 3.6 3.2 2X Avg.Risk 6.2 5.0 3X Avg.Risk 8.0 6.1 PATIENT WAS FASTINGP ERFORMED BY: [facility] Dfqbfi3317 [facility] [id number] Information: [id number] Cholesterol in VLDL mass conc 25 mg/dL Normal 5-40 [facility] Work Phone: Comment on above: PATIENT WAS FASTINGP ERFORMED BY: [facility] Gnkzjq0574 [facility] [id number] Information: [id number] Cholesterol mass conc 191 mg/dL Normal 100-199 Com prehensive Internal Medicine Work Phone: Comment on above: PATIENT WAS FASTINGP ERFORMED BY: PAT [facility] Ikjomf0025 [facility] [id number] Information: [id number] Triglyceride mass conc 124 mg/dL Normal 0-149 Co [facility] centerensive Internal Medicine Work Phone: Comment on above: PATIENT WAS FASTINGP ERFORMED BY: [facility] Alieuu3358 [facility] [id number] Information: [id number] Glucose (75138)Ordered By: Tylor ystem Nursing Teacher on 02-22-2014 Glucose mass conc 101 mg/dL Abnormal 65-99 [facility] Internal [facility] Work Phone: Comment on above: PATIENT WAS FASTINGP ERFORMED BY: [facility] Trtozy1968 [facility] [id number] Lipid Panel ([id number])Ordered B y: Histotechnician on 02-22-2014 Cholesterol in HDL mass conc 56 mg/dL Normal [facility] Work Phone: Comment on above: According to ATP-III Guidelines, HDL-C >59 mg/dL is considered anegative risk factor for CHD. PATIENT WAS FASTINGP ERFORMED BY: LabCoMonmouth Medical CenterIzjgbr7009 [facility] [id number] Information: [id number] Cholesterol in LDL mass conc 116 mg/dL Abnormal 0-99 [facility] Work Phone: Comment on above: PATIENT WAS FASTINGP ERFORMED BY: [place] 4046970 [facility] [id number] Information: [id number] Cholesterol in LDL/Cholesterol in HDL mass ratio 2.1 {ratio_units} Normal 0.0-3.2 [facility] Work Phone: Comment on above: LDL/HDL Ratio Men Wo men 1/2 Avg.Risk 1.0 1.5 Avg.Risk 3.6 3.2 2X Avg.Risk 6.2 5.0 3X Avg.Risk 8.0 6.1 PATIENT WAS FASTINGP ERFORMED BY: [facility]6370 [facility] [id number] Information: [id number] Cholesterol in VLDL mass conc 21 mg/dL Normal 5-40 [facility] Work Phone: Comment on above: PATIENT WAS FASTINGP ERFORMED BY: [place] 4046970 [facility] [id number] Information: [id number] Cholesterol mass conc 193 mg/dL Normal 100-199 Com prehensive Internal Medicine Work Phone: Comment on above: PATIENT WAS FASTINGP ERFORMED BY: [facility]6370 [facility] [id number] Information: [id number] Triglyceride mass conc 107 mg/dL Normal 0-149 Co mprehensive Internal Medicine Work Phone: Comment on above: PATIENT WAS FASTINGP ERFORMED BY: PAT [facility] Ktutcy0[address] [place] [id number] Information: [id number] Metabolic Panel, Basic (1797 8)Ordered By: Histotechnician on 10-27-2012 Calcium mass conc 8.9 mg/dL Normal 8.7-10.2 Compreh ensive Internal Medicine Work Phone: Comment on above: PATIENT NOT FASTINGP ERFORMED BY: CB [facility] Pdberg22[address] [facility] [id number] Information: [id number] Chloride molar conc 103 mmol/L Normal 97-108 [facility] Internal Medicine Work Phone: Comment on above: PATIENT NOT FASTINGP ERFORMED BY: CB [facility] Snlhdm3397 [facility] [id number] Information: [id number] CO2 molar conc 21 mmol/L Normal 19-28 Comprehens [place] Internal Medicine Work Phone: Comment on above: PATIENT NOT FASTINGP ERFORMED BY: CB [facility] Rwqhtj8553 [address] [facility] [id number] Information: [id number] Creatinine mass conc 0.88 mg/dL Normal 0.57-1.00 [facility] Internal Medicine Work Phone: Comment on above: PATIENT NOT FASTINGP ERFORMED BY: CB [facility] Szooyz09[address] [facility] [id number] Information: [id number] GFR/1.73 sq M predicted among blacks CKD-EPI vol rate/area (S/P/Bld) 95 mL/min/1.73 Normal [facility] Work Phone: Comment on above: PATIENT NOT FASTINGP ERFORMED BY: CB [facility] Zlthhe1342 [address]o RoadSentara Albem[facility]le [facility] Centerin [place] [id number] Information: [id number] GFR/1.73 sq M predicted among non-blacks CKD-EPI vol rate/area (S/P/Bld) 82 mL/min/1.73 Normal Comprehensiv e Internal Medicine Work Phone: Comment on above: PATIENT NOT FASTINGP ERFORMED BY: PAT Olvera6370 [facility] [id number] Information: [id number] Glucose mass conc 89 mg/dL Normal 65-99 Compreh ensive Internal Medicine Work Phone: Comment on above: PATIENT NOT FASTINGP ERFORMED BY: PAT SalgadoCo Rwojox6675 [facility] [id number] Information: [id number] Potassium molar conc 4.2 mmol/L Normal 3.5-5.2 Comp rehensive Internal Medicine Work Phone: Comment on above: PATIENT NOT FASTINGP ERFORMED BY: PAT SalgadoChristopher V[place] 7571970 [facility] [id number] Information: [id number] Sodium molar conc 138 mmol/L Normal 134-144 Compreh ensive Internal Medicine Work Phone: Comment on above: PATIENT NOT FASTINGP ERFORMED BY: PAT Sánchez Uokpwq4928 [facility] [id number] Information: [id number] Urea nitrogen mass conc 13 mg/dL Normal 6-24 [facility] Work Phone: Comment on above: PATIENT NOT FASTINGP ERFORMED BY: PAT SalgadoChristopher [place] 7571970 [facility] [id number] Information: [id number] Urea nitrogen/Creatinine mass ratio 15 mg/mg Normal 9-23 [facility] Work Phone: Comment on above: PATIENT NOT FASTINGP ERFORMED BY: [facility] Qtzfsb8033 [facility] [id number] Information: [id number] TSH ([id number])Ordered By: Usman Becerra on 10-27-2012 Thyrotropin Qn 2.040 {uIU/mL} Normal 0.450-4.500 Compr ehensive Internal Medicine Work Phone: Comment on above: PATIENT NOT FASTINGP ERFORMED BY: PAT [facility] Vgqmtd8907 [address] [facility] [place] [id number] BILAT SCRN DIGITAL & CADOrde red By: Histotechnician on 12-17-2011 BILAT SCRN DIGITAL & CAD See Note Normal [facility] Work Phone: Comment on above: MAMMOGRAPHY - BILATE RAL SCREENING REASON FOR EXAM: Female, 41 years old. Routine annual screeningexamination. PERTINENT HISTORY: Aunt with breast cancer. TECHNIQUE: Digital examination. Mediolateral oblique (MLO) andcraniocaudad (CC) views of both breasts were obtained. CAD: CAD wasperformed on this study. COMPARISON: Comparison is made with prior outside studies datedN2008 and February 13, 2009. FINDINGS:The breast composition is heterogeneously dense. There are no dominant masses or suspicious calcifications. No other significant abnormalities are identified. There has been nosignificant change since the prior study. IMPRESSION:Stable bilateral screening mammogram. Yearly follow-up recommended. (A) ASSESSMENT CATEGORY:BIRADS Category 2: Benign finding(s). A letter regarding these resultswill be sent to the patient by the facility within 30 days. Approximately 10% of breast cancers are not detected by mammography. Anormal mammogram should not delay biopsy of a clinically suspiciousabnormality. Signed:Paul Lovett M.D.December 30, 2011 at 1:55:13 PM [phone] Signed GP/GP If you are the referring physician and would like to consult with theradiologist who provided this interpretation, please contact Hari Nicole at [phone]. If this radiologist is unavailable, youwill be directed to another radiologist to assist. If you are a patient with a question regarding this report, pleasecontactyour referring physician directly. Professional Interpretation Provided By: [employer], Phone , These documents contain legally protected and confidential healthinformation intended only for the use of the individual or entity namedabove. If you are not the intended recipient, you are hereby notifiedthatany disclosure, copying, distribution, or other use of these documents isstrictly prohibited. If you have received this information in error,pleasenotify the sender immediately and arrange for the return or destructionofthese documents. Dictated on 12/17/11 1647 by Reji Lovett MDranscribed on 12/30/11 1401 by ITS IMPORTSign by Paul Lovett MD on 12/30/11 1402 Sign by: Paul Lovett MD CMPOrdered By: System Manage r on 11-28-2011 Albumin mass conc 3.3 g/dL Abnormal 3.4-5.0 Compreh ensive Internal Medicine Work Phone: Albumin/Globulin mass ratio 0.8 {RATIO} Abnormal 0.9-2.4 [facility] Work Phone: ALP enzyme act/vol 64 U/L Normal 50-136 [facility] Work Phone: ALT enzyme act/vol 19 U/L Normal 12-[address] [facility] Work Phone: Anion gap 3 molar conc 7 mmol/L Normal 5-15 Co mprehensive Internal Medicine Work Phone: Anion gap molar conc 7 mmol/L Normal 5-15 Comp rehensive Internal Medicine Work Phone: AST enzyme act/vol 11 U/L Abnormal 15-[address] [facility] Work Phone: Bilirubin mass conc 0.60 mg/dL Normal 0.00-1.00 Compr ehensive Internal Medicine Work Phone: Calcium mass conc 8.3 mg/dL Abnormal 8.5-10.1 Compreh ensive Internal Medicine Work Phone: Chloride molar conc 105 mmol/L Normal 98-107 Compr ensive Internal Medicine Work Phone: CO2 molar conc 28.0 mmol/L Normal 21.0-32.0 Comprehen [facility] Work Phone: Creatinine mass conc 1.0 mg/dL Normal 0.6-1.0 Comp rehensive Internal Medicine Work Phone: GFR/1.73 sq M predicted among blacks MDRD vol rate/area (S/P/Bld) 79 mL/min/{1.73_m2} Normal Comprehensiv e Internal Medicine Work Phone: GFR/1.73 sq M.predicted MDRD (S/P/Bld) [Vol rate/Area] 65 mL/min/{1.73_m2} Normal Comprehensiv e Internal Medicine Work Phone: GFR/1.73 sq M.predicted MDRD vol rate/area 65 mL/min/{1.73_m2} Normal Comprehensiv e Internal Medicine Work Phone: Globulin Calculated mass conc (S) 4.0 g/dL Normal 2.7-4.2 [facility] Work Phone: Globulin mass conc (S) 4.0 g/dL Normal 2.7-4.2 Co mprehensive Internal Medicine Work Phone: Glucose mass conc 92 mg/dL Normal 70-110 Compreh ensive Internal Medicine Work Phone: Potassium molar conc 3.9 mmol/L Normal 3.5-5.1 Comp rehensive Internal Medicine Work Phone: Protein mass conc 7.3 g/dL Normal 6.4-8.2 Compreh ensive Internal Medicine Work Phone: Sodium molar conc 140 mmol/L Normal 136-145 Compreh ensive Internal Medicine Work Phone: Urea nitrogen mass conc 11 mg/dL Normal 7-18 [facility] Work Phone: Urea nitrogen/Creatinine [Mass ratio] 11.0 mg/mg Normal 10-20 [facility]; [facility] Work Phone: Urea nitrogen/Creatinine mass ratio 11.0 {RATIO} Normal 10-20 [facility] Work Phone: LIPIDOrdered By: Yanet middleton on 11-28-2011 Cholesterol in HDL mass conc 59 mg/dL Normal [facility] Work Phone: Comment on above: Reference Range HDL <40 mg/dL Low HDL Cholesterol HDL >or= 60 mg/dL High HDL Cholesterol Cholesterol in LDL mass conc 97 mg/dL Normal 0-130 [facility] Work Phone: Cholesterol in VLDL mass conc 20 mg/dL Normal 5-40 [facility] Work Phone: Cholesterol mass conc 176 mg/dL Normal Com prehensive Internal Medicine Work Phone: Comment on above: <200 mg/dL Desirable 200-240 mg/dL Borderline >240 mg/dL High Risk Triglyceride mass conc 101 mg/dL Normal Co mprehensive Internal Medicine Work Phone: Comment on above: Serum Triglycerides Reference Interval Normal <150 mg/dL Borderline high 150 - 199 mg/dL High 200 - 499 mg/dL Very High > or = 500 mg/dL TSHOrdered By: System Manage r on 11-28-2011 Thyrotropin Qn 2.23 {uIU/mL} Normal 0.358-3.74 Compreh ensive Internal Medicine Work Phone: ,SERUMOrdered By: Tylor ystem Nursing Teacher on 02-24-2011 ,SERUM SeeNote Normal 0-9 Nonpreg Comprehe nsive Internal Medicine Work Phone: Comment on above: Result: NEGATIVE STAT Urine Test, Office ([id number])on 02-24-2011 Beta HCG ( test) Ql (U) Negative Normal [facility]; [facility] Work Phone: Urine Test, Office (00482) Negative Normal [facility]; [facility] Work Phone: Urine Test, Office ([id number])Ordered By: Cherelle Antony on 02-24-2011 HCG.beta subunit ( test) Ql (U) Negative Normal [facility] Work Phone: TRANSVAGINAL WITH ARTERIAL F LOOrdered By: Histotechnician on 01-09-2010 TRANSVAGINAL WITH ARTERIAL ARIEL See Note Normal [facility] Work Phone: Comment on above: Exam Number: [id number] CLINICAL:This is a 39-year-old female patient with history of abdominal andpelvic pain. PELVIC ULTRASOUND - COMPLETE TECHNIQUE:Transabdominal and Transvaginal COMPARISON:None. FINDINGS:Normal urinary bladder contour, without focal or diffuse wallthickening. There are no bladder calculi or intracystic masses. Normal uterine size, measuring 9.1 cm in maximum craniocaudaldimension. There are no myometrial masses. Normal endometrial thickness measuring 5 mm. Normal right ovary measuring 2.2 cm x 1.8 cm by 1.5 cm. There areno cystic or solid adnexal masses. Normal left ovary measuring 2.1 cm x 1.7 cm by .7 cm. There are nocystic or solid adnexal masses. There is a small amount of fluid in the cul-de-sac. IMPRESSION:Small amount of fluid seen in the cul-de-sac. Reported By: PAUL LOVETT Exam Number: [id number] CLINICAL:This is a 39-year-old female patient with history of abdominal andpelvic pain. PELVIC ULTRASOUND - COMPLETE TECHNIQUE:Transabdominal and Transvaginal COMPARISON:None. FINDINGS:Normal urinary bladder contour, without focal or diffuse wallthickening. There are no bladder calculi or intracystic masses. Normal uterine size, measuring 9.1 cm in maximum craniocaudaldimension. There are no myometrial masses. Normal endometrial thickness measuring 5 mm. Normal right ovary measuring 2.2 cm x 1.8 cm by 1.5 cm. There areno cystic or solid adnexal masses. Normal left ovary measuring 2.1 cm x 1.7 cm by .7 cm. There are nocystic or solid adnexal masses. There is a small amount of fluid in the cul-de-sac. IMPRESSION:Small amount of fluid seen in the cul-de-sac. Reported By: PAUL LOVETT Exam Number: [id number] CLINICAL:This is a 39-year-old female patient with history of abdominal pain. RENAL ULTRASOUND TECHNIQUE:The kidneys and bladder were evaluated at real-time sonographicallywith static marie scale images obtained for image documentation. COMPARISON:None. FINDINGS:Normal location of the right kidney. Normal length of the rightkidney. The right kidney measures 9.9 cm. There is no focalparenchymal thinning of the right kidney. There is no right renalmass or cyst. There are no right renal calculi. There is no righthydronephrosis. There is no dilatation of the visualized distal right ureter. Thereis no demonstrated right ureteral calculus. Normal location of the left kidney. Normal length of the leftkidney. The left kidney measures 10.2 cm. There is no focalparenchymal thinning of the left kidney. There is no left renalmass or cyst. There are no left renal calculi. There is no lefthydronephrosis. There is no dilatation of the visualized distal left ureter. Thereis no demonstrated left ureteral calculus. There is a minimally distended urinary bladder. The visualized aorta and IVC are unremarkable. IMPRESSION:Normal ultrasound examination of the bilateral kidneys. Reported By: PAUL LOVETT Urinalysis, Office ([id number])Or dered By: Kelsy Herrera on 01-07-2010 Bilirubin Ql (U) Negative Normal Compre[facility] Work Phone: Bilirubin Ql (U) Negative Normal Com[facility]; [facility] Work Phone: Glucose Test strip (U) [Mass/Vol] Negative Normal [facility]; [facility] Work Phone: Glucose Test strip mass conc (U) Negative Normal [facility] Work Phone: Hemoglobin Ql (U) Non Hemolyzed Trace Normal [facility] Work Phone: Hemoglobin Test strip Ql (U) Non Hemolyzed Trace Normal Comprehens[facility] e [facility] Work Phone: Ketones Ql (U) Negative Normal [facility] [place] [facility] Work Phone: Ketones Ql (U) Negative Normal [facility] [place]; [facility] Work Phone: Leukocyte esterase Test strip Ql (U) Negative Normal [facility] Work Phone: Leukocyte esterase Test strip Ql (U) Negative Normal [facility]; [facility] Work Phone: Nitrite Ql (U) Negative Normal [facility] [place] Work Phone: Nitrite Ql (U) Negative Normal [facility] [place]; [facility] Work Phone: Nitrite Test strip Ql (U) Negative Normal [facility] Work Phone: pH (U) 6.0 [pH] Normal [facility] Work Phone: pH Test strip (U) 6.0 [pH] Normal Compreh [facility] Work Phone: Protein Ql (U) Negative Normal [facility] [place] Work Phone: Protein Ql (U) Negative Normal [facility] [place]; [facility] Work Phone: Protein Test strip Ql (U) Negative Normal [facility] Work Phone: Specific gravity Relative Density (U) 1.020 1 Normal Comprehensi ve [facility] Work Phone: Urobilinogen mass/time (24H U) Normal Normal [facility] Work Phone: BMPOrdered By: System Manage r on 09-05-2009 Anion gap 3 molar conc 9 mmol/L Normal 5-15 [facility] Work Phone: Anion gap molar conc 9 mmol/L Normal 5-15 Comp rehensive [facility] Work Phone: Calcium mass conc 8.9 mg/dL Normal 8.5-10.1 Compre[facility] Work Phone: Chloride molar conc 102 mmol/L Normal 98-107 Compr ehensive [facility] Work Phone: CO2 molar conc 25.0 mmol/L Normal 21.0-32.0 Comprehen s[facility] Work Phone: Creatinine mass conc 0.9 mg/dL Normal 0.6-1.0 Comp rehensive [facility] Work Phone: GFR/1.73 sq M predicted among blacks MDRD vol rate/area (S/P/Bld) 91 mL/min/{1.73_m2} Normal Comprehens[facility] e [facility] Work Phone: GFR/1.73 sq M.predicted MDRD vol rate/area 75 mL/min/{1.73_m2} Normal Comprehens[facility] e [facility] Work Phone: Glucose mass conc 82 mg/dL Normal 70-110 Com[facility] Work Phone: Potassium molar conc 4.6 mmol/L Normal 3.5-5.1 Comp rehensive [facility] Work Phone: Sodium molar conc 136 mmol/L Normal 136-145 Com[facility] Work Phone: Urea nitrogen mass conc 18 mg/dL Normal 7-18 [facility] Work Phone: Urea nitrogen/Creatinine mass ratio 20.0 {RATIO} Normal 10-20 [facility] Work Phone: CBCOrdered By: System Manage r on 09-05-2009 Erythrocyte distribution width Auto Ratio (RBC) 12.1 % Normal 11.6-14.6 [facility] Work Phone: Erythrocyte distribution width Ratio (RBC) 12.1 % Normal 11.6-14.6 [facility] Work Phone: Hematocrit Auto Volume Fraction (Bld) 40.9 % Normal 37-47 [facility] Work Phone: Hematocrit Volume Fraction (Bld) 40.9 % Normal 37-47 [facility] Work Phone: Hemoglobin mass conc (Bld) 14.1 g/dL Normal 12.0-16.0 [facility] Work Phone: MCH Auto Entitic mass (RBC) 31.3 pg Normal 27.0-32.0 [facility] Work Phone: MCH Entitic mass (RBC) 31.3 pg Normal 27.0-32.0 [facility] Work Phone: MCHC Auto mass conc (RBC) 34.5 g/dL Normal 32-36 [facility] Work Phone: MCHC mass conc (RBC) 34.5 g/dL Normal 32-36 Comp rehensive [facility] Work Phone: MCV Auto Entitic volume (RBC) 90.9 fL Normal 81-99 [facility] Work Phone: MCV Entitic volume (RBC) 90.9 fL Normal 81-99 [facility] Work Phone: Platelet mean volume Auto Entitic volume (Bld) 7.8 fL Normal 6.5-12.0 [facility] Work Phone: Platelet mean volume Entitic volume (Bld) 7.8 fL Normal 6.5-12.0 Comprehensi ve [facility] Work Phone: Platelets #/vol (Bld) 266 10*3/uL Normal 150-450 [facility] Work Phone: Platelets Auto #/vol (Bld) 266 10*3/uL Normal 150-450 [facility] Work Phone: RBC #/vol (Bld) 4.50 {M/mm3} Normal 4.2-5.4 Compre[facility] Work Phone: RBC Auto #/vol (Bld) 4.50 {M/mm3} Normal 4.2-5.4 [facility] Work Phone: WBC #/vol (Bld) 6.3 10*3/uL Normal 4.4-11.0 Comprehe [facility] Work Phone: WBC Auto #/vol (Bld) 6.3 10*3/uL Normal 4.4-11.0 Com prehensive [facility] Work Phone: TSHOrdered By: System Manage r on 09-05-2009 Thyrotropin Qn 2.33 {uIU/mL} Normal 0.358-3.74 Compreh [facility] Work Phone: HEPATOBILIARY IMAGINGOrdered By: Histotechnician on 11-26-2008 HEPATOBILIARY IMAGING See Note Normal Com prehensive [facility] Work Phone: Comment on above: Exam Number: [id number] NUCLEAR MEDICINE HEPATOBILIARY SCAN CLINICAL HISTORYNausea and epigastric pain. 4.7 mCi of Technetium-99m Choletec were infused, and scintigraphicimages were acquired of the abdomen. There is rapid radiotracer clearance by the liver. By 30 minutes,tracer can be seen accumulating in the gallbladder, common bile duct,and intrahepatic biliary ducts. By 60 minutes, there is tracer in the small bowel. 1.4 mcg of cholecystokinin analog were administered over 30 minutes. A region of interest was assigned to the gallbladder, and imaging wascontinued. A gallbladder ejection fraction was calculated. The gallbladder ejection fraction is 83%. This is in the normalrange. IMPRESSION The study is within normal limits. Reported By: Raghu Delgado M.D. GALLBLADDEROrdered By: Usman liang Nursing Teacher on 11-07-2008 GALLBLADDER See Note Normal [facility] Work Phone: Comment on above: Exam Number: [id number] CLINICAL:Nausea ABDOMINAL ULTRASOUND LIMITED COMPARISON:None. FINDINGS:Normal liver size, contour and echogenicity without mass or other lesion. Normal portal venous flow. The hepatic veins and the inferior vena cava are all normal Normal gallbladder size and contour, with no wall thickening, filling defects or pericholecystic fluid. Normal caliber of the common bile duct, measuring 3 mm. Normal intrahepatic ducts with no intrahepatic biliary ductal dilatation. Normal pancreas without focal or diffuse enlargement, and there are no cysts or calcifications. Normal visualized pancreatic duct. Normal right kidney size, contour, and echogenicity, measuring 10.1 cm length. Normal right renal cortex with no masses or cysts. Normal intrarenal collecting system with no renal calculi or hydronephrosis. IMPRESSION:Normal study. Reported By: AURORA HANNA CBCD,SMEAR DIFFOrdered By: Tylor ystem Nursing Teacher on 11-06-2008 Eosinophils/100 WBC (Bld) 2 % Normal 0-5 [facility] Work Phone: Eosinophils/100 WBC Auto (Bld) 2 % Normal 0-5 [facility] Work Phone: Erythrocyte distribution width Auto Ratio (RBC) 11.9 % Normal 11.6-14.6 [facility] Work Phone: Erythrocyte distribution width Ratio (RBC) 11.9 % Normal 11.6-14.6 [facility] Work Phone: Hematocrit Auto Volume Fraction (Bld) 38.6 % Normal 37-47 [facility] Work Phone: Hematocrit Volume Fraction (Bld) 38.6 % Normal 37-47 [facility] Work Phone: Hemoglobin mass conc (Bld) 13.5 g/dL Normal 12.0-16.0 [facility] Work Phone: Lymphocytes/100 WBC (Bld) 37 % Normal 19-41 [facility] Work Phone: Lymphocytes/100 WBC Auto (Bld) 37 % Normal 19-41 [facility] Work Phone: MCH Auto Entitic mass (RBC) 31.2 pg Normal 27.0-32.0 [facility] Work Phone: MCH Entitic mass (RBC) 31.2 pg Normal 27.0-32.0 [facility] Work Phone: MCHC Auto mass conc (RBC) 35.1 g/dL Normal 32-36 [facility] Work Phone: MCHC mass conc (RBC) 35.1 g/dL Normal 32-36 Comp rehensive [facility] Work Phone: MCV Auto Entitic volume (RBC) 88.8 fL Normal 81-99 [facility] Work Phone: MCV Entitic volume (RBC) 88.8 fL Normal 81-99 [facility] Work Phone: Monocytes/100 WBC (Bld) 7 % Normal 0-10 [facility] Work Phone: Monocytes/100 WBC Auto (Bld) 7 % Normal 0-10 [facility] Work Phone: Platelets #/vol (Bld) SeeNote Normal Com prehensive [facility] Work Phone: Comment on above: Result: ADEQUATE Platelets #/vol (Bld) 255 10*3/uL Normal 150-450 [facility] Work Phone: Platelets Auto #/vol (Bld) 255 10*3/uL Normal 150-450 [facility] Work Phone: RBC #/vol (Bld) 4.34 {M/mm3} Normal 4.2-5.4 Com[facility] Work Phone: RBC Auto #/vol (Bld) 4.34 {M/mm3} Normal 4.2-5.4 [facility] Work Phone: WBC #/vol (Bld) 5.0 10*3/uL Normal 4.4-11.0 Comprehe [facility] Work Phone: WBC Auto #/vol (Bld) 5.0 10*3/uL Normal 4.4-11.0 Com prehensive [facility] Work Phone: CBCD,SMEAR DIFF 100 1 Normal [facility] Work Phone: CBCD,SMEAR DIFF SeeNote Normal [facility] Work Phone: Comment on above: Result: ADEQUATE Result: NORM C+C CBCD,SMEAR DIFF 54 % Normal 47-70 [facility] Work Phone: COMP METABOLICOrdered By: Shashi stem Nursing Teacher on 11-06-2008 Albumin mass conc 3.0 g/dL Abnormal 3.4-5.0 Compreh [facility] Work Phone: Albumin/Globulin mass ratio 0.8 {RATIO} Abnormal 0.9-2.4 [facility] Work Phone: ALP enzyme act/vol 84 U/L Normal 50-136 [facility] Work Phone: ALT enzyme act/vol 17 U/L Abnormal 30-65 [facility] Work Phone: Anion gap 3 molar conc 4 mmol/L Abnormal 5-15 [facility] Work Phone: Anion gap molar conc 4 mmol/L Abnormal 5-15 Comp rehensive [facility] Work Phone: AST enzyme act/vol 4 U/L Abnormal 15-37 [facility] Work Phone: Bilirubin mass conc 0.50 mg/dL Normal 0.00-1.00 Compr [facility] Internal Medicine Work Phone: Calcium mass conc 8.7 mg/dL Normal 8.5-10.1 Compreh [facility] Work Phone: Chloride molar conc 105 mmol/L Normal 98-107 Compr ehensive [facility] Work Phone: CO2 molar conc 27.0 mmol/L Normal 21.0-32.0 Comprehen s[facility] Work Phone: Creatinine mass conc 0.9 mg/dL Normal 0.6-1.0 Comp rehens[facility] Work Phone: GFR/1.73 sq M predicted among blacks MDRD vol rate/area (S/P/Bld) 91 mL/min/{1.73_m2} Normal Comprehensiv e [facility] Work Phone: GFR/1.73 sq M.predicted MDRD vol rate/area 75 mL/min/{1.73_m2} Normal Comprehensiv e [facility] Work Phone: Globulin Calculated mass conc (S) 3.8 g/dL Normal 2.7-4.2 [facility] Work Phone: Globulin mass conc (S) 3.8 g/dL Normal 2.7-4.2 [facility] Work Phone: Glucose mass conc 105 mg/dL Normal 70-110 Compre[facility] Work Phone: Potassium molar conc 4.0 mmol/L Normal 3.5-5.1 Comp rehensive [facility] Work Phone: Protein mass conc 6.8 g/dL Normal 6.4-8.2 [facility] Work Phone: Sodium molar conc 136 mmol/L Normal 136-145 Com[facility] Work Phone: Urea nitrogen mass conc 15 mg/dL Normal 7-18 [facility] Work Phone: Urea nitrogen/Creatinine mass ratio 16.7 {RATIO} Normal 10-20 [facility] Work Phone: CBCD,SMEAR DIFFOrdered By: Tylor ystem Nursing Teacher on 2007 Band form neutrophils/100 WBC (Bld) 1 % Normal 0-5 [facility] Work Phone: Band form neutrophils/100 WBC Manual cnt (Bld) 1 % Normal 0-5 [facility] Work Phone: Eosinophils/100 WBC (Bld) 3 % Normal 0-5 [facility] Work Phone: Eosinophils/100 WBC Auto (Bld) 3 % Normal 0-5 [facility] Work Phone: Erythrocyte distribution width Auto Ratio (RBC) 12.1 % Normal 11.6-14.6 [facility] Work Phone: Erythrocyte distribution width Ratio (RBC) 12.1 % Normal 11.6-14.6 [facility] Work Phone: Hematocrit Auto Volume Fraction (Bld) 36.6 % Abnormal 37-47 [facility] Work Phone: Hematocrit Volume Fraction (Bld) 36.6 % Abnormal 37-47 [facility] Work Phone: Hemoglobin mass conc (Bld) 13.0 g/dL Normal 12.0-16.0 [facility] Work Phone: Lymphocytes/100 WBC (Bld) 31 % Normal 19-41 [facility] Work Phone: Lymphocytes/100 WBC Auto (Bld) 31 % Normal 19-41 [facility] Work Phone: MCH Auto Entitic mass (RBC) 31.2 pg Normal 27.0-32.0 [facility] Work Phone: MCH Entitic mass (RBC) 31.2 pg Normal 27.0-32.0 Co [facility] Internal Medicine Work Phone: MCHC Auto mass conc (RBC) 35.5 g/dL Normal 32-36 [facility] Work Phone: MCHC mass conc (RBC) 35.5 g/dL Normal 32-36 Comp [facility] Medicine Work Phone: MCV Auto Entitic volume (RBC) 87.8 fL Normal 81-99 [facility] Work Phone: MCV Entitic volume (RBC) 87.8 fL Normal 81-99 [facility] Work Phone: Monocytes/100 WBC (Bld) 2 % Normal 0-10 [facility] Work Phone: Monocytes/100 WBC Auto (Bld) 2 % Normal 0-10 [facility] Work Phone: Platelets #/vol (Bld) SeeNote Normal Com prehensive [facility] Work Phone: Comment on above: Result: ADEQUATE Platelets #/vol (Bld) 244 10*3/uL Normal 150-450 [facility] Work Phone: Platelets Auto #/vol (Bld) 244 10*3/uL Normal 150-450 [facility] Work Phone: RBC #/vol (Bld) 4.17 {M/mm3} Abnormal 4.2-5.[address] [facility] Work Phone: RBC Auto #/vol (Bld) 4.17 {M/mm3} Abnormal 4.2-5.4 Co [facility] Internal Medicine Work Phone: WBC #/vol (Bld) 4.2 10*3/uL Abnormal 4.4-11.0 Comprehe [facility] Internal Medicine Work Phone: WBC Auto #/vol (Bld) 4.2 10*3/uL Abnormal 4.4-11.0 Com [facility] Work Phone: CBCD,SMEAR DIFF 100 1 Normal Comprehen [facility] Internal Medicine Work Phone: CBCD,SMEAR DIFF SeeNote Normal Comprehen [facility] Internal Medicine Work Phone: Comment on above: Result: ADEQUATE Result: NORM C+C CBCD,SMEAR DIFF 63 % Normal 47-70 Comprehen [facility] Internal Medicine Work Phone: COMP METABOLICOrdered By: Sy stem Nursing Teacher on 2007 Albumin mass conc 3.3 g/dL Abnormal 3.4-5.0 Compreh [facility] Internal Medicine Work Phone: Albumin/Globulin mass ratio 1.0 {RATIO} Normal 0.9-2.4 [facility] Internal [facility] Work Phone: ALP enzyme act/vol 74 U/L Normal 50-136 [facility] Work Phone: ALT enzyme act/vol 32 U/L Normal 30-65 Compre [facility] Internal Medicine Work Phone: Anion gap 3 molar conc 3 mmol/L Abnormal 5-15 [facility] Work Phone: Anion gap molar conc 3 mmol/L Abnormal 5-15 [facility] Work Phone: AST enzyme act/vol 17 U/L Normal 15-37 Compre [facility] Internal Medicine Work Phone: Bilirubin mass conc 0.46 mg/dL Normal 0.00-1.00 Compr ensive [facility] Medicine Work Phone: Calcium mass conc 8.6 mg/dL Normal 8.5-10.[address] [facility] Work Phone: Chloride molar conc 104 mmol/L Normal 98-107 Compr [facility] Internal Medicine Work Phone: CO2 molar conc 27.4 mmol/L Normal 21.0-32.0 Comprehen [facility] Internal Medicine Work Phone: Creatinine mass conc 1.1 mg/dL Abnormal 0.6-1.0 [facility] Work Phone: Globulin Calculated mass conc (S) 3.4 g/dL Normal 2.7-4.2 [facility] Internal Medicine Work Phone: Globulin mass conc (S) 3.4 g/dL Normal 2.7-4.2 Co [facility] Internal Medicine Work Phone: Glucose mass conc 99 mg/dL Normal 70-[address] [facility] Work Phone: Potassium molar conc 4.6 mmol/L Normal 3.5-5.1 [facility] Work Phone: Protein mass conc 6.7 g/dL Normal 6.4-8.[address] [facility] Work Phone: Sodium molar conc 134 mmol/L Abnormal 136-[address] [facility] Work Phone: Urea nitrogen mass conc 14 mg/dL Normal 7-18 [facility] Work Phone: Urea nitrogen/Creatinine mass ratio 12.7 {RATIO} Normal 10-20 [facility] Work Phone: CPK TOTALOrdered By: Histotechnician on 2007 CPK TOTAL 42 U/L Normal 21-215 [facility] Work Phone: ESROrdered By: System Manage r on 2007 ESR Velocity (Bld) 14 mm/h Normal 0-20 Compre hensive Internal Medicine Work Phone: LIPIDOrdered By: System Sofía emi on 2007 Cholesterol in HDL mass conc 58 mg/dL Normal [facility] Work Phone: Comment on above: Reference Range HDL <40 mg/dL Low HDL Cholesterol HDL >or= 60 mg/dL High HDL Cholesterol Cholesterol in LDL mass conc 78 mg/dL Normal 0-130 [facility] Work Phone: Cholesterol in VLDL mass conc 22 mg/dL Normal 5-40 [facility] Work Phone: Cholesterol mass conc 158 mg/dL Normal Com prehensive [facility] Medicine Work Phone: Comment on above: <200 mg/dL Desirable 200-240 mg/dL Borderline >240 mg/dL High Risk Triglyceride mass conc 108 mg/dL Normal Co mprehensive [facility] Work Phone: Comment on above: Serum Triglycerides Reference Interval Normal <150 mg/dL Borderline high 150 - 199 mg/dL High 200 - 499 mg/dL Very High > or = 500 mg/dL MGOrdered By: Histotechnician on 2007 Magnesium mass conc 2.0 mg/dL Normal 1.5-2.2 Compr ehensive Internal Medicine Work Phone: TSHOrdered By: System Manage r on 2007 Thyrotropin Qn 2.34 {uIU/mL} Normal 0.34-4.82 Compreh ensive Internal Medicine Work Phone: Rapid Strep Test, Office ([phone])on 07-30-2006 S. pyogenes Ag EIA Ql (Throat) Positive Normal [facility]; [facility] Work Phone: Comment on above: done-jjp Rapid Strep Test, Office ([phone])Ordered By: Pauline Kang on 07-30-2006 S. pyogenes Ag IA Ql (Unsp spec) Positive Normal [facility] Work Phone: Comment on above: done-jjp Vital Signs Date Time Vital Sign Value Performing Clinician Facility 09-28-2024 14:37-0400 Body height 165.1 cm [place]e [place] [employer]OVAL[employer]PLOWING Work Phone: [facility] 09-28-2024 14:37-0400 Body mass index (BMI) [Ratio] 29.55 kg/m2 [place]e [place] [employer]OVAL[employer]PLOWING Work Phone: [facility] 09-28-2024 14:37-0400 Body weight 80.56 kg Danae Dipika [employer] REMOVAL/PLOWING Work Phone: [facility] 09-28-2024 14:37-0400 Diastolic blood pressure 88 mm[Hg] Danae [place] [employer] REMOVAL/PLOWING Work Phone: [facility] 09-28-2024 14:37-0400 Systolic blood pressure 126 mm[Hg] Danae [place] [employer] REMOVAL/PLOWING Work Phone: [facility] 03-15-2024 14:02-0500 Body height 165.1 cm Sulaiman Whyte MD Work Phone: [facility] 03-15-2024 14:02-0500 Body mass index (BMI) [Ratio] 30.47 kg/m2 Sulaiman Whyte MD Work Phone: [facility] 03-15-2024 14:02-0500 Body temperature 97.39 [degF] Sulaiman Whyte MD Work Phone: [facility] 03-15-2024 14:02-0500 Body weight 83.05 kg Sulaiman Whyte MD Work Phone: [facility] 03-15-2024 14:02-0500 Diastolic blood pressure 83 mm[Hg] Sulaiman Whyte MD Work Phone: [facility] 03-15-2024 14:02-0500 Heart rate 76 /min Sulaiman Whyte MD Work Phone: [facility] 03-15-2024 14:02-0500 Respiratory rate 18 /min Sulaiman Whyte MD Work Phone: [facility] 03-15-2024 14:02-0500 SaO2% (BldA) [Mass fraction] 96 % Sulaiman Whyte MD Work Phone: [facility] 03-15-2024 14:02-0500 Systolic blood pressure 130 mm[Hg] Sulaiman Whyte MD Work Phone: [facility] 09-27-2023 15:22-0400 Body height 165.1 cm Danae Dipika [employer] REMOVAL/PLOWING Work Phone: [facility] 09-27-2023 15:22-0400 Body mass index (BMI) [Ratio] 28.89 kg/m2 Danae [place] [employer] REMOVAL/PLOWING Work Phone: [facility] 09-27-2023 15:22-0400 Body weight 78.74 kg Danae Dipika [employer].SNOW REMOVAL/PLOWING Work Phone: [facility] 09-27-2023 15:22-0400 Diastolic blood pressure 70 mm[Hg] Danae Dipika [employer].SNOW REMOVAL/PLOWING Work Phone: [facility] 09-27-2023 15:22-0400 Systolic blood pressure 120 mm[Hg] Danae [place] [employer].SNOW REMOVAL/PLOWING Work Phone: [facility] 06-29-2023 18:32-0400 Body temperature 100.09 [degF] Rina [place] [employer].SNOW REMOVAL/PLOWING Work Phone: [facility] 06-29-2023 18:32-0400 Body weight 78.7 kg Rina [place] [employer].SNOW REMOVAL/PLOWING Work Phone: [facility] 06-29-2023 18:32-0400 Diastolic blood pressure 80 mm[Hg] Rina [place] [employer]PER [employer]TER.SNOW REMOVAL/PLOWING Work Phone: [facility] 06-29-2023 18:32-0400 Heart rate 108 /min Rina P[place] [employer]PER [employer]TER.SNOW REMOVAL/PLOWING Work Phone: [facility] 06-29-2023 18:32-0400 Respiratory rate 20 /min Rina P[place]ler-[place] [employer]PER [employer]TER.SNOW REMOVAL/PLOWING Work Phone: [facility] 06-29-2023 18:32-0400 SaO2% (BldA) [Mass fraction] 98 % Rina Praisler-[place] DAMPER [employer]TER.SNOW REMOVAL/PLOWING Work Phone: [facility] [facility] 06-29-2023 18:32-0400 Systolic blood pressure 120 mm[Hg] Rina Praisler-Wood DAMPER FITTER.SNOW REMOVAL/PLOWING Work Phone: [facility] 01-08-2023 07:11-0400 Body height 165.1 cm PIERRE Matthew LPN [facility] Work Phone: 01-08-2023 07:11-0400 Body mass index (BMI) [Ratio] 26.96 kg/m2 PIERRE Matthew LPN [facility] Work Phone: 01-08-2023 07:11-0400 Body surface area Derived from formula 1.81 m2 PIERRE Matthew LPN [facility]; [facility] Work Phone: 01-08-2023 07:11-0400 Body temperature 97.6 [degF] PIERRE Matthew LPN [facility] Work Phone: 01-08-2023 07:11-0400 Body weight 73.48 kg PIERRE Matthew LPN [facility]; [facility] Work Phone: 01-08-2023 07:11-0400 Diastolic blood pressure 80 mm[Hg] PIERRE Matthew LPN [facility] Work Phone: 01-08-2023 07:11-0400 Heart rate 90 /min PIERRE Matthew LPN [facility]; [facility] Work Phone: 01-08-2023 07:11-0400 Respiratory rate 18 /min PIERRE Matthew LPN [facility]; [facility] Work Phone: 01-08-2023 07:11-0400 SaO2% (BldA) [Mass fraction] 98 % PIERRE Matthew LPN [facility]; [facility] Work Phone: 01-08-2023 07:11-0400 Systolic blood pressure 120 mm[Hg] PIERRE Matthew LPN [facility] Work Phone: 11-20-2022 10:49-0400 Body height 165.1 cm Sulaiman Whyte MD Work Phone: [facility] 11-20-2022 10:49-0400 Body temperature 98.01 [degF] Sulaiman Whyte MD Work Phone: [facility] 11-20-2022 10:49-0400 Body weight 72.35 kg Sulaiman Whyte MD Work Phone: [facility] 11-20-2022 10:49-0400 Diastolic blood pressure 82 mm[Hg] Sulaiman Whyte MD Work Phone: [facility] 11-20-2022 10:49-0400 Heart rate 78 /min Sulaiman Whyte MD Work Phone: [facility] 11-20-2022 10:49-0400 Respiratory rate 20 /min Sulaiman Whyte MD Work Phone: [facility] 11-20-2022 10:49-0400 SaO2% (BldA) [Mass fraction] 99 % Sulaiman Whyte MD Work Phone: [facility] 11-20-2022 10:49-0400 Systolic blood pressure 134 mm[Hg] Sulaiman Whyte MD Work Phone: [facility] 09-02-2022 08:04-0400 Body height 165.1 cm Chantale Mina AIRPLANE ELECTRICAL REPAIRER [facility] Work Phone: 09-02-2022 08:04-0400 Body mass index (BMI) [Ratio] 25.88 kg/m2 Chantale Mina [employer]PL[employer] ELECTRICAL REPAIRER [facility] Work Phone: 09-02-2022 08:04-0400 Body surface area Derived from formula 1.78 m2 Chantale Mina LPN [facility]; [facility] Work Phone: 09-02-2022 08:04-0400 Body temperature 97.3 [degF] Chantale Mina LPN [facility] Work Phone: 09-02-2022 08:04-0400 Body weight 70.53 kg Chantale Mina LPN [facility]; [facility] Work Phone: 09-02-2022 08:04-0400 Diastolic blood pressure 90 mm[Hg] Chantale Mina LPN [facility]; [facility] Work Phone: Comment on above: Patient Position: Sitting; Cuff Location : Left Arm; Cuff Size: Standard 09-02-2022 08:04-0400 Heart rate 87 /min Chantale Mina LPN [facility]; [facility] Work Phone: Comment on above: Pattern: Regular 09-02-2022 08:04-0400 Respiratory rate 16 /min Chantale Mina LPN [facility]; [facility] Work Phone: Comment on above: Pattern: Unlabored 09-02-2022 08:04-0400 SaO2% (BldA) [Mass fraction] 98 % Chantale Mina LPN [facility]; [facility] Work Phone: Comment on above: Room air 09-02-2022 08:04-0400 Systolic blood pressure 148 mm[Hg] Chantale Mina LPN [facility]; [facility] Work Phone: Comment on above: Patient Position: Sitting; Cuff Location : Left Arm; Cuff Size: Standard 07-03-2022 07:28-0400 Body height 165.1 cm [facility] Work Phone: 07-03-2022 07:28-0400 Body mass index (BMI) [Ratio] 25.88 kg/m2 [facility] Work Phone: 07-03-2022 07:28-0400 Body surface area Derived from formula 1.78 m2 [facility] Work Phone: 07-03-2022 07:28-0400 Body temperature 97.1 [degF] [facility] Work Phone: 07-03-2022 07:28-0400 Body [facility]53 [facility] Work Phone: 07-03-2022 07:28-0400 Diastolic blood pressure 80 mm[Hg] [facility] Work Phone: Comment on above: Patient Position: Sitting; Cuff Location : Left Arm; Cuff Size: Standard 07-03-2022 07:28-0400 Heart rate 88 /min [facility]; [facility] Work Phone: Comment on above: Pattern: Regular 07-03-2022 07:28-0400 Respiratory rate 16 /min [facility] Work Phone: Comment on above: Pattern: Unlabored 07-03-2022 07:28-0400 SaO2% (BldA) [Mass fraction] 95 % [facility]; [facility] Work Phone: Comment on above: Room air 07-03-2022 07:28-0400 Systolic blood pressure 120 mm[Hg] [facility]; [facility] Work Phone: Comment on above: Patient Position: Sitting; Cuff Location : Left Arm; Cuff Size: Standard 01-29-2022 13:32-0400 Body height 165.[address] Zenaida Barksdale Work Phone: [facility] Work Phone: 01-29-2022 13:32-0400 Body mass index (BMI) [Ratio] 25.8 kg/m2 Dr. Zenaida Barksdale Work Phone: [facility] Work Phone: 01-29-2022 13:32-0400 Body weight 70.[address] Zenaida Barksdale Work Phone: [facility] Work Phone: 01-29-2022 13:32-0400 Diastolic blood pressure 80 mm[Hg] Dr. Zenaida Barksdale Work Phone: [facility] Work Phone: 01-29-2022 13:32-0400 Heart rate 88 /min Dr. Zenaida Barksdale Work Phone: [facility] Work Phone: 01-29-2022 13:32-0400 Respiratory rate 16 /min Dr. Zenaida Barksdale Work Phone: [facility] Work Phone: 01-29-2022 13:32-0400 Systolic blood pressure 148 mm[Hg] Dr. Zenaida Barksdale Work Phone: [facility] Work Phone: 01-23-2022 23:24-0400 Diastolic blood pressure 71 mm[Hg] Dr. Zenaida Barksdale Work Phone: [facility] Work Phone: 01-23-2022 23:24-0400 Heart rate 70 /min Dr. Zenaida Barksdale Work Phone: [facility] Work Phone: 01-23-2022 23:24-0400 Respiratory rate 17 /min Dr. Zenaida Barksdale Work Phone: [facility] Work Phone: 01-23-2022 23:24-0400 SaO2% (BldA) [Mass fraction] 98 % Dr. Zenaida Barksdale Work Phone: [facility] Work Phone: 01-23-2022 23:24-0400 Systolic blood pressure 144 mm[Hg] Dr. Zenaida Barksdale Work Phone: [facility] Work Phone: 01-23-2022 21:59-0400 Body height 165.[address] Zenaida Barksdale Work Phone: [facility] Work Phone: 01-23-2022 21:59-0400 Body mass index (BMI) [Ratio] 25.9 kg/m2 Dr. Zenaida Barksdale Work Phone: [facility] Work Phone: 01-23-2022 21:59-0400 Body temperature 97.6 [degF] Dr. Zenaida Barksdale Work Phone: [facility] Work Phone: 01-23-2022 21:59-0400 Body weight 70.[address] Zenaida Barksdale Work Phone: [facility] Work Phone: 01-09-2022 09:48-0400 Body height 165.1 cm Yousif Greer LPN [facility]; [facility] Work Phone: 01-09-2022 09:48-0400 Body mass index (BMI) [Ratio] 26.63 kg/m2 Yousif Greer LPN [facility]; [facility] Work Phone: 01-09-2022 09:48-0400 Body surface area Derived from formula 1.8 m2 Yousif Greer LPN [facility]; [facility] Work Phone: 01-09-2022 09:48-0400 Body temperature 97.7 [degF] Yousif Greer LPN [facility]; [facility] Work Phone: Comment on above: Method: Infrared 01-09-2022 09:48-0400 Body weight 72.58 kg Yousif Greer LPN [facility]; [facility] Work Phone: 01-09-2022 09:48-0400 Diastolic blood pressure 72 mm[Hg] Yousif Greer LPN [facility]; [facility] Work Phone: Comment on above: Patient Position: Sitting; Cuff Location : Left Arm; Cuff Size: Standard 01-09-2022 09:48-0400 Heart rate 87 /min Yousif Greer LPN [facility]; [facility] Work Phone: Comment on above: Pattern: Regular 01-09-2022 09:48-0400 Respiratory rate 16 /min Yousif Greer LPN [facility]; [facility] Work Phone: Comment on above: Pattern: Unlabored 01-09-2022 09:48-0400 SaO2% (BldA) [Mass fraction] 99 % Yousif Greer LPN [facility]; [facility] Work Phone: Comment on above: Room air 01-09-2022 09:48-0400 Systolic blood pressure 106 mm[Hg] Yousif Greer LPN [facility]; [facility] Work Phone: Comment on above: Patient Position: Sitting; Cuff Location : Left Arm; Cuff Size: Standard 12-12-2021 08:37-0400 Body height 165.1 cm Camelia Keller [facility]; [facility] Work Phone: 12-12-2021 08:37-0400 Body mass index (BMI) [Ratio] 25.02 kg/m2 Camelia Keller [facility]; [facility] Work Phone: 12-12-2021 08:37-0400 Body surface area Derived from formula 1.75 m2 Camelia Keller [facility]; [facility] Work Phone: 12-12-2021 08:37-0400 Body temperature 97.3 [degF] Camelia Keller [facility]; [facility] Work Phone: Comment on above: Method: Infrared 12-12-2021 08:37-0400 Body weight 68.21 kg Camelia Keller [facility]; [facility] Work Phone: 12-12-2021 08:37-0400 Diastolic blood pressure 78 mm[Hg] Camelia Keller [facility]; [facility] Work Phone: Comment on above: Patient Position: Sitting; Cuff Location : Left Arm; Cuff Size: Standard 12-12-2021 08:37-0400 Heart rate 76 /min Camelia Keller [facility]; [facility] Work Phone: Comment on above: Pattern: Regular 12-12-2021 08:37-0400 Respiratory rate 18 /min Camelia Keller [facility]; [facility] Work Phone: Comment on above: Pattern: Unlabored 12-12-2021 08:37-0400 SaO2% (BldA) [Mass fraction] 98 % Camelia Keller [facility]; [facility] Work Phone: Comment on above: Room air 12-12-2021 08:37-0400 Systolic blood pressure 130 mm[Hg] Camelia Keller [facility]; [facility] Work Phone: Comment on above: Patient Position: Sitting; Cuff Location : Left Arm; Cuff Size: Standard 12-07-2021 01:25-0400 Heart rate 100 /min [facility] Work Phone: 12-07-2021 01:25-0400 Respiratory rate 15 /min [facility] Work Phone: 12-07-2021 01:25-0400 SaO2% (BldA) [Mass fraction] 98 % [facility] Work Phone: 12-07-2021 00:46-0400 Diastolic blood pressure 87 mm[Hg] [facility] Work Phone: 12-07-2021 00:46-0400 Systolic blood pressure 148 mm[Hg] [facility] Work Phone: 12-06-2021 23:50-0400 Body height 165.1 cm [facility] Work Phone: 12-06-2021 23:50-0400 Body mass index (BMI) [Ratio] 25 kg/m2 [facility] Work Phone: 12-06-2021 23:50-0400 Body temperature 98.1 [degF] [facility] Work Phone: 12-06-2021 23:50-0400 Body weight 68.03 kg [facility] Work Phone: 08-15-2021 09:05-0400 Body height 165.1 cm Sommer Matthew MD Work Phone: [facility] 08-15-2021 09:05-0400 Body weight 64.86 kg Sommer Matthew MD Work Phone: [facility] 08-15-2021 09:05-0400 Diastolic blood pressure 68 mm[Hg] Sommer Matthew MD Work Phone: [facility] 08-15-2021 09:05-0400 Systolic blood pressure 110 mm[Hg] Sommer Matthew MD Work Phone: [facility] 07-09-2021 17:25-0400 Body height 165.1 cm Camelia Gravius [facility] Work Phone: 07-09-2021 17:25-0400 Body mass index (BMI) [Ratio] 23.36 kg/m2 Camelia Gravius [facility]; [facility] Work Phone: 07-09-2021 17:25-0400 Body surface area Derived from formula 1.7 m2 Camelia Gravius [facility]; [facility] Work Phone: 07-09-2021 17:25-0400 Body temperature 97.3 [degF] Camelia Gravius [facility]; [facility] Work Phone: Comment on above: Method: Infrared 07-09-2021 17:25-0400 Body weight 63.67 kg Camelia Gravius [facility] Work Phone: 07-09-2021 17:25-0400 Diastolic blood pressure 70 mm[Hg] Camelia Keller [facility]; [facility] Work Phone: Comment on above: Patient Position: Sitting; Cuff Location : Left Arm; Cuff Size: Standard 07-09-2021 17:25-0400 Heart rate 105 /min Camelia Keller [facility]; [facility] Work Phone: Comment on above: Pattern: Regular 07-09-2021 17:25-0400 Respiratory rate 18 /min Camelia Keller [facility]; [facility] Work Phone: Comment on above: Pattern: Unlabored 07-09-2021 17:25-0400 SaO2% (BldA) [Mass fraction] 97 % Camelia Keller [facility]; [facility] Work Phone: Comment on above: Room air 07-09-2021 17:25-0400 Systolic blood pressure 130 mm[Hg] Camelia Keller [facility] Work Phone: Comment on above: Patient Position: Sitting; Cuff Location : Left Arm; Cuff Size: Standard 11-01-2020 07:13-0400 Body height 165.1 cm Camelia Keller [facility] Work Phone: 11-01-2020 07:13-0400 Body mass index (BMI) [Ratio] 23.53 kg/m2 Camelia Keller [facility] Work Phone: 11-01-2020 07:13-0400 Body surface area Derived from formula 1.71 m2 Camelia Keller [facility]; [facility] Work Phone: 11-01-2020 07:13-0400 Body temperature 97.3 [degF] Camelia Keller [facility]; [facility] Work Phone: Comment on above: Method: Infrared 11-01-2020 07:13-0400 Body weight 64.13 kg Camelia Keller [facility]; [facility] Work Phone: 11-01-2020 07:13-0400 Diastolic blood pressure 72 mm[Hg] Camelia Keller [employer]KER [facility]; [facility] Work Phone: Comment on above: Patient Position: Sitting; Cuff Location : Left Arm; Cuff Size: Standard 11-01-2020 07:13-0400 Heart rate 83 /min Camelia Keller [facility]; [facility] Work Phone: Comment on above: Pattern: Regular 11-01-2020 07:13-0400 Respiratory rate 16 /min Camelia Keller [facility]; [facility] Work Phone: Comment on above: Pattern: Unlabored 11-01-2020 07:13-0400 SaO2% (BldA) [Mass fraction] 96 % Camelia Keller [facility]; [facility] Work Phone: Comment on above: Room air 11-01-2020 07:13-0400 Systolic blood pressure 118 mm[Hg] Camelia Keller [facility] Work Phone: Comment on above: Patient Position: Sitting; Cuff Location : Left Arm; Cuff Size: Standard 04-10-2020 13:39-0500 BMI (Body Mass Index) 27.19 kg/m2 Camelia Keller [facility] Work Phone: 04-10-2020 13:39-0500 Body Temperature 97.3 [degF] Camelia Keller [employer] [facility]; [facility] Work Phone: Comment on above: Method: Infrared 04-10-2020 13:39-0500 Body weight 74.11 kg Camelia Keller [facility]; [facility] Work Phone: 04-10-2020 13:39-0500 BP Diastolic 80 mm[Hg] Camelia Keller [facility]; [facility] Work Phone: Comment on above: Patient Position: Sitting; Cuff Location : Left Arm; Cuff Size: Standard 04-10-2020 13:39-0500 BP Systolic 120 mm[Hg] Camelia Keller [facility]; [facility] Work Phone: Comment on above: Patient Position: Sitting; Cuff Location : Left Arm; Cuff Size: Standard 04-10-2020 13:39-0500 BSA (Body Surface Area) 1.82 m2 Camelia Keller [facility]; [facility] Work Phone: 04-10-2020 13:39-0500 Height 165.1 cm Camelia Keller [employer] [facility]; [facility] Work Phone: 04-10-2020 13:39-0500 Pulse (Heart Rate) 84 /min Camelia Keller [facility]; [facility] Work Phone: Comment on above: Pattern: Regular 04-10-2020 13:39-0500 Pulse Oximetry 98 % Zenaida Barksdale [facility]; [facility] Work Phone: Comment on above: Room air 04-10-2020 13:39-0500 Respiratory Rate 18 /min Camelia Keller [facility]; [facility] Work Phone: Comment on above: Pattern: Unlabored 04-10-2020 13:39-0500 SaO2% (BldA) [Mass fraction] 98 % Camelia Keller [facility]; [facility] Work Phone: Comment on above: Room air 01-10-2020 14:45-0400 BMI (Body Mass Index) 30.35 kg/m2 Chantale Mina LPN [facility] Work Phone: 01-10-2020 14:45-0400 Body Temperature 98.2 [degF] Chantale Mina LPN [facility] Work Phone: Comment on above: Method: Temporal 01-10-2020 14:45-0400 Body weight 82.73 kg Chantale Mina LPN [facility] Work Phone: 01-10-2020 14:45-0400 BP Diastolic 78 mm[Hg] Chantale Mina LPN [facility] Work Phone: Comment on above: Patient Position: Sitting; Cuff Location : Left Arm; Cuff Size: Standard 01-10-2020 14:45-0400 BP Systolic 136 mm[Hg] Chantale Mina LPN [facility] Work Phone: Comment on above: Patient Position: Sitting; Cuff Location : Left Arm; Cuff Size: Standard 01-10-2020 14:45-0400 BSA (Body Surface Area) 1.9 m2 Chantale Mina AIRPL[employer] ELECTRICAL REPAIRER [facility] Work Phone: 01-10-2020 14:45-0400 Height 165.1 cm Chantale Mina [employer]PL[employer] ELECTRICAL REPAIRER [facility] Work Phone: 01-10-2020 14:45-0400 Pulse (Heart Rate) 88 /min Chantale Mina [employer]PL[employer] ELECTRICAL REPAIRER [facility] Work Phone: Comment on above: Pattern: Regular 01-10-2020 14:45-0400 Pulse Oximetry 98 % Zenaida Barksdale [facility] Work Phone: Comment on above: Room air 01-10-2020 14:45-0400 Respiratory Rate 16 /min Chantalelisha Mina AIRPLANE ELECTRICAL REPAIRER [facility] Work Phone: Comment on above: Pattern: Unlabored 01-10-2020 14:45-0400 SaO2% (BldA) [Mass fraction] 98 % Chantalelisha Mina [facility]; [facility] Work Phone: Comment on above: Room air 09-01-2019 08:42-0400 BMI (Body Mass Index) 30.79 kg/m2 Zenaida Jaya DO Work Phone: [facility] Work Phone: Comment on above: vs 09-01-2019 08:42-0400 Body weight 83.92 kg Zenaida Jaya DO Work Phone: [facility] Work Phone: Comment on above: vs 09-01-2019 08:42-0400 BSA (Body Surface Area) 1.91 m2 Zenaida Jaya DO Work Phone: [facility] Work Phone: Comment on above: vs 09-01-2019 08:42-0400 Height 165.1 cm Zenaida Jaya DO Work Phone: [facility] Work Phone: Comment on above: vs 05-05-2019 09:07-0500 BMI (Body Mass Index) 30.79 kg/m2 Camelia Keller [facility] Work Phone: 05-05-2019 09:07-0500 Body Temperature 96 [degF] Camelia Keller [facility] Work Phone: Comment on above: Method: Temporal 05-05-2019 09:07-0500 Body weight 83.92 kg Camelia Keller [facility] Work Phone: 05-05-2019 09:07-0500 BP Diastolic 68 mm[Hg] Camelia Keller [facility] Work Phone: Comment on above: Patient Position: Sitting; Cuff Location : Left Arm; Cuff Size: Standard 05-05-2019 09:07-0500 BP Systolic 106 mm[Hg] Camelia Keller [facility] Work Phone: Comment on above: Patient Position: Sitting; Cuff Location : Left Arm; Cuff Size: Standard 05-05-2019 09:07-0500 BSA (Body Surface Area) 1.91 m2 Camelia Keller [facility] Work Phone: 05-05-2019 09:07-0500 Height 165.1 cm Camelia Keller [facility] Work Phone: 05-05-2019 09:07-0500 Pulse (Heart Rate) 76 /min Camelia Keller [facility] Work Phone: Comment on above: Pattern: Regular 05-05-2019 09:07-0500 Pulse Oximetry 98 % Zenaida Arteagaon [facility] Work Phone: Comment on above: Room air 05-05-2019 09:07-0500 Respiratory Rate 16 /min Camelia Keller [facility] Work Phone: Comment on above: Pattern: Unlabored 05-05-2019 09:07-0500 SaO2% (BldA) [Mass fraction] 98 % Camelia Keller [facility]; [facility] Work Phone: Comment on above: Room air 03-24-2019 11:32-0500 BMI (Body Mass Index) 30.79 kg/m2 Tereza Jefferson RN [facility] Work Phone: 03-24-2019 11:32-0500 Body weight 83.92 kg Tereza Jefferson RN [facility] Work Phone: 03-24-2019 11:32-0500 BP Diastolic 80 mm[Hg] Tereza Jefferson RN [facility] Work Phone: Comment on above: Patient Position: Sitting; Cuff Location : Left Arm; Cuff Size: Large 03-24-2019 11:32-0500 BP Systolic 128 mm[Hg] Tereza Jefferson RN [facility] Work Phone: Comment on above: Patient Position: Sitting; Cuff Location : Left Arm; Cuff Size: Large 03-24-2019 11:32-0500 BSA (Body Surface Area) 1.91 m2 Tereza Jefferson RN [facility] Work Phone: 03-24-2019 11:32-0500 Height 165.1 cm Tereza Jefferson RN [facility] Work Phone: 03-24-2019 11:32-0500 Pulse (Heart Rate) 90 /min Tereza Jefferson RN [facility] Work Phone: Comment on above: Pattern: Regular 03-24-2019 11:32-0500 Pulse Oximetry 98 % Zenaida Barksdale [facility] Work Phone: Comment on above: Room air 03-24-2019 11:32-0500 Respiratory Rate 18 /min Tereza Jefferson RN [facility] Work Phone: Comment on above: Pattern: Unlabored 03-24-2019 11:32-0500 SaO2% (BldA) [Mass fraction] 98 % Tereza Jefferson RN [facility]; [facility] Work Phone: Comment on above: Room air 10-28-2018 08:55-0400 BMI (Body Mass Index) 29.52 kg/m2 Tereza Jefferson RN [facility] Work Phone: 10-28-2018 08:55-0400 Body weight 80.46 kg Tereza Jefferson RN [facility] Work Phone: 10-28-2018 08:55-0400 BP Diastolic 76 mm[Hg] Tereza Jefferson RN [facility] Work Phone: Comment on above: Patient Position: Sitting; Cuff Location : Left Arm; Cuff Size: Large 10-28-2018 08:55-0400 BP Systolic 118 mm[Hg] Terzea Jefferson RN [facility] Work Phone: Comment on above: Patient Position: Sitting; Cuff Location : Left Arm; Cuff Size: Large 10-28-2018 08:55-0400 BSA (Body Surface Area) 1.88 m2 Tereza Jefferson RN [facility] Work Phone: 10-28-2018 08:55-0400 Height 165.1 cm Tereza Jefferson RN [facility] Work Phone: 10-28-2018 08:55-0400 Pulse (Heart Rate) 83 /min Tereza Jefferson RN [facility] Work Phone: Comment on above: Pattern: Regular 10-28-2018 08:55-0400 Pulse Oximetry 98 % Zenaida Barksdale [facility] Work Phone: Comment on above: Room air 10-28-2018 08:55-0400 Respiratory Rate 18 /min Tereza Jefferson RN [facility] Work Phone: Comment on above: Pattern: Unlabored 10-28-2018 08:55-0400 SaO2% (BldA) [Mass fraction] 98 % Tereza Jefferson RN [facility]; [facility] Work Phone: Comment on above: Room air 04-29-2018 09:13-0500 BMI (Body Mass Index) 26.5 kg/m2 Tereza Jefferson RN [facility] Work Phone: 04-29-2018 09:13-0500 Body weight 72.24 kg Tereza Jefferson RN [facility] Work Phone: 04-29-2018 09:13-0500 BP Diastolic 78 mm[Hg] Tereza Jefferson RN [facility] Work Phone: Comment on above: Patient Position: Sitting; Cuff Location : Left Arm; Cuff Size: Large 04-29-2018 09:13-0500 BP Systolic 124 mm[Hg] Tereza Jefferson RN [facility] Work Phone: Comment on above: Patient Position: Sitting; Cuff Location : Left Arm; Cuff Size: Large 04-29-2018 09:13-0500 BSA (Body Surface Area) 1.8 m2 Tereza Jefferson RN [facility] Work Phone: 04-29-2018 09:13-0500 Height 165.1 cm Tereza Jefferson RN [facility] Work Phone: 04-29-2018 09:13-0500 Pulse (Heart Rate) 82 /min Tereza Jefferson RN [facility] Work Phone: Comment on above: Pattern: Regular 04-29-2018 09:13-0500 Pulse Oximetry 98 % Zenaida Jaya [facility] Work Phone: Comment on above: Room air 04-29-2018 09:13-0500 Respiratory Rate 18 /min Tereza Jeffersno RN [facility] Work Phone: Comment on above: Pattern: Unlabored 04-29-2018 09:13-0500 SaO2% (BldA) [Mass fraction] 98 % Tereza Jefferson RN [facility]; [facility] Work Phone: Comment on above: Room air 04-29-2018 09:13-0500 Weight 72.24 kg Zenaida Arteagaon [facility] Work Phone: 02-18-2018 10:37-0400 BMI (Body Mass Index) 26.81 kg/m2 Camelia Keller [facility] Work Phone: 02-18-2018 10:37-0400 Body Temperature 98.3 [degF] Camelia Keller [facility] Work Phone: Comment on above: Method: Temporal 02-18-2018 10:37-0400 Body weight 73.09 kg Camelia Keller [facility] Work Phone: 02-18-2018 10:37-0400 BP Diastolic 70 mm[Hg] Camelia Keller [facility] Work Phone: Comment on above: Patient Position: Sitting; Cuff Location : Left Arm; Cuff Size: Standard 02-18-2018 10:37-0400 BP Systolic 100 mm[Hg] Camelia Keller [facility] Work Phone: Comment on above: Patient Position: Sitting; Cuff Location : Left Arm; Cuff Size: Standard 02-18-2018 10:37-0400 BSA (Body Surface Area) 1.8 m2 Camelia Keller [facility] Work Phone: 02-18-2018 10:37-0400 Height 165.1 cm Camelia Keller [facility] Work Phone: 02-18-2018 10:37-0400 Pulse (Heart Rate) 64 /min Camelia Keller [facility] Work Phone: Comment on above: Pattern: Regular 02-18-2018 10:37-0400 Pulse Oximetry 98 % Zenaida Barksdale [facility] Work Phone: Comment on above: Room air 02-18-2018 10:37-0400 Respiratory Rate 16 /min Camelia Keller [facility] Work Phone: Comment on above: Pattern: Unlabored 02-18-2018 10:37-0400 SaO2% (BldA) [Mass fraction] 98 % Camelia Keller [facility]; [facility] Work Phone: Comment on above: Room air 02-18-2018 10:37-0400 Weight 73.09 kg Zenaida Barksdale [facility] Work Phone: 04-21-2017 15:41-0500 BMI (Body Mass Index) 30.75 kg/m2 Tereza Jefferson RN [facility] Work Phone: 04-21-2017 15:41-0500 Body weight 81.25 kg Tereza Jefferson RN [facility] Work Phone: 04-21-2017 15:41-0500 BP Diastolic 78 mm[Hg] Tereza Jefferson RN [facility] Work Phone: Comment on above: Patient Position: Sitting; Cuff Location : Left Arm; Cuff Size: Large 04-21-2017 15:41-0500 BP Systolic 118 mm[Hg] Tereza Jefferson RN [facility] Work Phone: Comment on above: Patient Position: Sitting; Cuff Location : Left Arm; Cuff Size: Large 04-21-2017 15:41-0500 BSA (Body Surface Area) 1.87 m2 Tereza Jefferson RN [facility] Work Phone: 04-21-2017 15:41-0500 Height 162.56 cm Tereza Jefferson RN [facility] Work Phone: 04-21-2017 15:41-0500 Pulse (Heart Rate) 80 /min Tereza Jefferson RN [facility] Work Phone: Comment on above: Pattern: Regular 04-21-2017 15:41-0500 Pulse Oximetry 98 % Zenaida Jaya [facility] Work Phone: Comment on above: Room air 04-21-2017 15:41-0500 Respiratory Rate 18 /min Tereza Jefferson RN [facility] Work Phone: Comment on above: Pattern: Unlabored 04-21-2017 15:41-0500 SaO2% (BldA) [Mass fraction] 98 % Tereza Jefferson RN [facility]; [facility] Work Phone: Comment on above: Room air 04-21-2017 15:41-0500 Weight 81.25 kg Zenaida Arteagaon [facility] Work Phone: 03-25-2017 13:58-0500 BMI (Body Mass Index) 30.75 kg/m2 Tereza Jefferson RN [facility] Work Phone: 03-25-2017 13:58-0500 Body weight 81.25 kg Tereza Jefferson RN [facility] Work Phone: 03-25-2017 13:58-0500 BP Diastolic 90 mm[Hg] Tereza Jefferson RN [facility] Work Phone: Comment on above: Patient Position: Sitting; Cuff Location : Left Arm; Cuff Size: Large 03-25-2017 13:58-0500 BP Systolic 138 mm[Hg] Tereza Jefferson RN [facility] Work Phone: Comment on above: Patient Position: Sitting; Cuff Location : Left Arm; Cuff Size: Large 03-25-2017 13:58-0500 BSA (Body Surface Area) 1.87 m2 Tereza Jefferson RN [facility] Work Phone: 03-25-2017 13:58-0500 Height 162.56 cm Tereza Jefefrson RN [facility] Work Phone: 03-25-2017 13:58-0500 Pulse (Heart Rate) 90 /min Tereza Jefferson RN [facility] Work Phone: Comment on above: Pattern: Regular 03-25-2017 13:58-0500 Pulse Oximetry 96 % Zenaida Barksdale [facility] Work Phone: Comment on above: Room air 03-25-2017 13:58-0500 Respiratory Rate 18 /min Tereza Jefferson RN [facility] Work Phone: Comment on above: Pattern: Unlabored 03-25-2017 13:58-0500 SaO2% (BldA) [Mass fraction] 96 % Tereza Jefferson RN [facility]; [facility] Work Phone: Comment on above: Room air 03-25-2017 13:58-0500 Weight 81.25 kg Zenaidawander Barksdale [facility] Work Phone: 03-09-2017 13:50-0500 BMI (Body Mass Index) 32.33 kg/m2 Asuncion Slarb [employer] [facility] Work Phone: 03-09-2017 13:50-0500 Body Temperature 97.1 [degF] Asuncion Slarb [employer] [facility] Work Phone: 03-09-2017 13:50-0500 Body weight 85.45 kg Asuncion Slarb [employer] [facility] Work Phone: 03-09-2017 13:50-0500 BP Diastolic 94 mm[Hg] Asuncion Slarb [employer] [facility] Work Phone: Comment on above: Patient Position: Sitting; Cuff Location : Left Arm; Cuff Size: Standard 03-09-2017 13:50-0500 BP Systolic 150 mm[Hg] Asuncion Slarb [employer] [facility] Work Phone: Comment on above: Patient Position: Sitting; Cuff Location : Left Arm; Cuff Size: Standard 03-09-2017 13:50-0500 BSA (Body Surface Area) 1.91 m2 Asuncion Alejandro CARTER [facility] Work Phone: 03-09-2017 13:50-0500 Height 162.56 cm Asuncion Alejandro CARTER [facility] Work Phone: 03-09-2017 13:50-0500 Pulse (Heart Rate) 91 /min Asuncion Slaannia CARTER [facility] Work Phone: Comment on above: Pattern: Regular 03-09-2017 13:50-0500 Pulse Oximetry 97 % Zenaida Jaya [facility] Work Phone: Comment on above: Room air 03-09-2017 13:50-0500 Respiratory Rate 16 /min Asuncion Allen LPN [facility] Work Phone: Comment on above: Pattern: Unlabored 03-09-2017 13:50-0500 SaO2% (BldA) [Mass fraction] 97 % Asuncion Allen LPN [facility]; [facility] Work Phone: Comment on above: Room air 03-09-2017 13:50-0500 Weight 85.45 kg Zenaida Arteagaon [facility] Work Phone: 01-14-2016 12:48-0400 BMI (Body Mass Index) 31.07 kg/m2 Kelsy Herrera RN [facility] Work Phone: 01-14-2016 12:48-0400 Body Temperature 97.8 [degF] Kelsy Herrera RN [facility] Work Phone: Comment on above: Method: Temporal 01-14-2016 12:48-0400 Body weight 82.1 kg Kelsy Herrera RN [facility] Work Phone: 01-14-2016 12:48-0400 BP Diastolic 76 mm[Hg] Kelsy Herrera RN [facility] Work Phone: Comment on above: Patient Position: Sitting; Cuff Location : Left Arm; Cuff Size: Standard 01-14-2016 12:48-0400 BP Systolic 120 mm[Hg] Kelsy Herrera RN [facility] Work Phone: Comment on above: Patient Position: Sitting; Cuff Location : Left Arm; Cuff Size: Standard 01-14-2016 12:48-0400 BSA (Body Surface Area) 1.87 m2 Kelsy Herrera RN [facility] Work Phone: 01-14-2016 12:48-0400 Height 162.56 cm Kelsy Herrera RN [facility] Work Phone: 01-14-2016 12:48-0400 Pulse (Heart Rate) 76 /min Kelsy Herrera RN [facility] Work Phone: Comment on above: Pattern: Regular 01-14-2016 12:48-0400 Respiratory Rate 16 /min Kelsy Herrera RN [facility] Work Phone: Comment on above: Pattern: Unlabored 01-14-2016 12:48-0400 Weight 82.1 kg Zenaida Barksdale [facility] Work Phone: 09-09-2015 13:29-0400 BMI (Body Mass Index) 30.21 kg/m2 PIERRE Matthew LPN [facility] Work Phone: 09-09-2015 13:29-0400 Body Temperature 97.6 [degF] PIERRE Matthew LPN [facility] Work Phone: Comment on above: Method: Temporal 09-09-2015 13:29-0400 Body weight 79.83 kg PIERRE Matthew LPN [facility] Work Phone: 09-09-2015 13:29-0400 BP Diastolic 90 mm[Hg] PIERRE Matthew LPN [facility] Work Phone: Comment on above: Patient Position: Sitting; Cuff Location : Left Arm; Cuff Size: Standard 09-09-2015 13:29-0400 BP Systolic 124 mm[Hg] PIERRE Matthew LPN [facility] Work Phone: Comment on above: Patient Position: Sitting; Cuff Location : Left Arm; Cuff Size: Standard 09-09-2015 13:29-0400 BSA (Body Surface Area) 1.85 m2 PIERRE Matthew LPN [facility] Work Phone: 09-09-2015 13:29-0400 Height 162.56 cm PIERRE Matthew LPN [facility] Work Phone: 09-09-2015 13:29-0400 Pulse (Heart Rate) 74 /min PIERRE Matthew LPN [facility] Work Phone: Comment on above: Pattern: Regular 09-09-2015 13:29-0400 Pulse Oximetry 97 % Zenaida Barksdale [facility] Work Phone: Comment on above: Room air 09-09-2015 13:29-0400 Respiratory Rate 18 /min PIERRE Matthew LPN [facility] Work Phone: Comment on above: Pattern: Unlabored 09-09-2015 13:29-0400 SaO2% (BldA) [Mass fraction] 97 % PIERRE Matthew LPN [facility]; [facility] Work Phone: Comment on above: Room air 09-09-2015 13:29-0400 Weight 79.83 kg Zenaida Barksdale [facility] Work Phone: 06-11-2015 13:24-0500 BMI (Body Mass Index) 29.35 kg/m2 Rachel Barros [facility] Work Phone: 06-11-2015 13:24-0500 Body Temperature 98.1 [degF] Rachel Barros [facility] Work Phone: Comment on above: Method: Temporal 06-11-2015 13:24-0500 Body weight 77.57 kg Rachel Barros [facility] Work Phone: 06-11-2015 13:24-0500 BP Diastolic 68 mm[Hg] Rachel Barros [facility] Work Phone: Comment on above: Patient Position: Sitting; Cuff Location : Left Arm; Cuff Size: Standard 06-11-2015 13:24-0500 BP Systolic 118 mm[Hg] Rachel Christensensonageorge [employer] [facility] Work Phone: Comment on above: Patient Position: Sitting; Cuff Location : Left Arm; Cuff Size: Standard 06-11-2015 13:24-0500 BSA (Body Surface Area) 1.83 m2 Rachel Barros [facility] Work Phone: 06-11-2015 13:24-0500 Height 162.56 cm Rachel Barros [facility] Work Phone: 06-11-2015 13:24-0500 Pulse (Heart Rate) 82 /min Rachel Barros [facility] Work Phone: Comment on above: Pattern: Regular 06-11-2015 13:24-0500 Pulse Oximetry 98 % Zenaida Barksdale [facility] Work Phone: Comment on above: Room air 06-11-2015 13:24-0500 Respiratory Rate 16 /min Rachel Barros [facility] Work Phone: Comment on above: Pattern: Unlabored 06-11-2015 13:24-0500 SaO2% (BldA) [Mass fraction] 98 % Rachel Barros [facility]; [facility] Work Phone: Comment on above: Room air 06-11-2015 13:24-0500 Weight 77.57 kg Zenaida Barksdale [facility] Work Phone: 02-22-2014 08:50-0500 BMI (Body Mass Index) 28.49 kg/m2 PIERRE Matthew LPN [facility] Work Phone: 02-22-2014 08:50-0500 Body Temperature 97 [degF] PIERRE Matthew LPN [facility] Work Phone: Comment on above: Method: Temporal 02-22-2014 08:50-0500 Body weight 75.3 kg PIERRE Matthew LPN [facility] Work Phone: 02-22-2014 08:50-0500 BP Diastolic 76 mm[Hg] PIERRE Matthew [employer] [facility] Work Phone: Comment on above: Patient Position: Sitting; Cuff Location : Left Arm; Cuff Size: Standard 02-22-2014 08:50-0500 BP Systolic 118 mm[Hg] [facility] Work Phone: Comment on above: Patient Position: Sitting; Cuff Location : Left Arm; Cuff Size: Standard 02-22-2014 08:50-0500 BSA (Body Surface Area) 1.81 m2 PIERRE Matthew [facility] Work Phone: 02-22-2014 08:50-0500 Height 162.56 cm PIERRE Matthew [facility] Work Phone: 02-22-2014 08:50-0500 Pulse (Heart Rate) 70 /min PIERRE Matthew [facility] Work Phone: Comment on above: Pattern: Regular 02-22-2014 08:50-0500 Respiratory Rate 20 /min PIERRE Matthew [facility] Work Phone: Comment on above: Pattern: Unlabored 02-22-2014 08:50-0500 Weight 75.3 kg Zenaida Barskdale [facility] Work Phone: 11-14-2013 08:12-0400 BMI (Body Mass Index) 30.38 kg/m2 Barbiepeggy Kwok [facility] Medicine Work Phone: Comment on above: hip 41 inches 11-14-2013 08:12-0400 Body Temperature 97.2 [degF] Barbiepeggy Kwok [facility] Work Phone: Comment on above: Method: Temporal hip 41 inches 11-14-2013 08:12-0400 Body weight 80.29 kg Barbiepeggy Kwok [facility] Work Phone: Comment on above: hip 41 inches 11-14-2013 08:12-0400 BP Diastolic 80 mm[Hg] Barbiepeggy Kwok [facility] Work Phone: Comment on above: Patient Position: Sitting; Cuff Location : Left Arm; Cuff Size: Standard hip 41 inches 11-14-2013 08:12-0400 BP Systolic 126 mm[Hg] Barbiepeggy Pruitty [facility] Work Phone: Comment on above: Patient Position: Sitting; Cuff Location : Left Arm; Cuff Size: Standard hip 41 inches 11-14-2013 08:12-0400 BSA (Body Surface Area) 1.86 m2 Barbie Kwok [facility] Work Phone: Comment on above: hip 41 inches 11-14-2013 08:12-0400 Height 162.56 cm Barbie Kwok [facility] Work Phone: Comment on above: hip 41 inches 11-14-2013 08:12-0400 Pulse (Heart Rate) 82 /min Barbie Kwok [facility] Work Phone: Comment on above: Pattern: Regular hip 41 inches 11-14-2013 08:12-0400 Pulse Oximetry 98 % Zenaida Barksdale [facility] Work Phone: Comment on above: Room air hip 41 inches 11-14-2013 08:12-0400 Respiratory Rate 16 /min Barbie Kwok [facility] Work Phone: Comment on above: Pattern: Unlabored hip 41 inches 11-14-2013 08:12-0400 SaO2% (BldA) [Mass fraction] 98 % Barbie Kwok [facility]; [facility] Work Phone: Comment on above: Room air hip 41 inches 11-14-2013 08:12-0400 Weight 80.29 kg Zenaida Barksdale [facility] Work Phone: Comment on above: hip 41 inches 10-10-2013 15:53-0400 BMI (Body Mass Index) 30.38 kg/m2 Kelsy Herrera RN [facility] Medicine Work Phone: 10-10-2013 15:53-0400 Body Temperature 97.5 [degF] Kelsy Herrera RN [facility] Work Phone: Comment on above: Method: Temporal 10-10-2013 15:53-0400 Body weight 80.29 kg Kelsy Herrera RN [facility] Work Phone: 10-10-2013 15:53-0400 BP Diastolic 76 mm[Hg] Kelsy Herrera RN [facility] Work Phone: Comment on above: Patient Position: Sitting; Cuff Location : Left Arm; Cuff Size: Standard 10-10-2013 15:53-0400 BP Systolic 124 mm[Hg] Kelsy Herrera RN [facility] Work Phone: Comment on above: Patient Position: Sitting; Cuff Location : Left Arm; Cuff Size: Standard 10-10-2013 15:53-0400 BSA (Body Surface Area) 1.86 m2 Kelsy Herrera RN [facility] Work Phone: 10-10-2013 15:53-0400 Height 162.56 cm Kelsy Herrera RN [facility] Work Phone: 10-10-2013 15:53-0400 Pulse (Heart Rate) 78 /min Kelsy Herrera RN [facility] Work Phone: Comment on above: Pattern: Regular 10-10-2013 15:53-0400 Pulse Oximetry 96 % Zenaida Barksdale [facility] Work Phone: Comment on above: Room air 10-10-2013 15:53-0400 Respiratory Rate 16 /min Kelsy Herrera RN [facility] Work Phone: Comment on above: Pattern: Unlabored 10-10-2013 15:53-0400 SaO2% (BldA) [Mass fraction] 96 % Kelsy Herrera RN [facility]; [facility] Work Phone: Comment on above: Room air 10-10-2013 15:53-0400 Weight 80.29 kg Zenaida Arteagaon [facility] Work Phone: 08-18-2013 09:57-0400 BMI (Body Mass Index) 30.38 kg/m2 PIERRE Matthew LPN [facility] Work Phone: 08-18-2013 09:57-0400 Body Temperature 97.6 [degF] PIERRE Matthew LPN [facility] Work Phone: Comment on above: Method: Oral 08-18-2013 09:57-0400 Body weight 80.29 kg PIERRE Matthew LPN [facility] Work Phone: 08-18-2013 09:57-0400 BP Diastolic 80 mm[Hg] PIERRE Matthew LPN [facility] Work Phone: Comment on above: Patient Position: Sitting; Cuff Location : Left Arm; Cuff Size: Standard 08-18-2013 09:57-0400 BP Systolic 120 mm[Hg] PIERRE Matthew LPN [facility] Work Phone: Comment on above: Patient Position: Sitting; Cuff Location : Left Arm; Cuff Size: Standard 08-18-2013 09:57-0400 BSA (Body Surface Area) 1.86 m2 PIERRE Matthew LPN [facility] Work Phone: 08-18-2013 09:57-0400 Height 162.56 cm PIERRE Matthew LPN [facility] Work Phone: 08-18-2013 09:57-0400 Pulse (Heart Rate) 70 /min PIERRE Matthew LPN [facility] Work Phone: Comment on above: Pattern: Regular 08-18-2013 09:57-0400 Respiratory Rate 18 /min PIERRE Matthew LPN [facility] Work Phone: Comment on above: Pattern: Unlabored 08-18-2013 09:57-0400 Weight 80.29 kg Zenaida Barksdale [facility] Work Phone: 01-03-2013 15:48-0400 BMI (Body Mass Index) 27.29 kg/m2 Stone Torres MD Work Phone: [facility] Work Phone: 01-03-2013 15:48-0400 Body Temperature 98.2 [degF] Stone Torres MD Work Phone: [facility] Work Phone: Comment on above: Method: Temporal 01-03-2013 15:48-0400 Body weight 72.12 kg Stone Torres MD Work Phone: [facility] Work Phone: 01-03-2013 15:48-0400 BP Diastolic 70 mm[Hg] Stone Torres MD Work Phone: [facility] Work Phone: Comment on above: Patient Position: Sitting; Cuff Location : Left Arm; Cuff Size: Standard 01-03-2013 15:48-0400 BP Systolic 124 mm[Hg] Stone oTrres MD Work Phone: [facility] Work Phone: Comment on above: Patient Position: Sitting; Cuff Location : Left Arm; Cuff Size: Standard 01-03-2013 15:48-0400 BSA (Body Surface Area) 1.77 m2 Stone Torres MD Work Phone: [facility] Work Phone: 01-03-2013 15:48-0400 Height 162.56 cm Stone Torres MD Work Phone: [facility] Work Phone: 01-03-2013 15:48-0400 Pulse (Heart Rate) 98 /min Stone Torres MD Work Phone: [facility] Work Phone: Comment on above: Pattern: Regular 01-03-2013 15:48-0400 Pulse Oximetry 86 % Zenaida Jaya [facility] Work Phone: Comment on above: Room air 01-03-2013 15:48-0400 Respiratory Rate 16 /min Stone Torres MD Work Phone: [facility] Work Phone: Comment on above: Pattern: Unlabored 01-03-2013 15:48-0400 SaO2% (BldA) [Mass fraction] 86 % Stone Torres MD Work Phone: [facility]; [facility] Work Phone: Comment on above: Room air 01-03-2013 15:48-0400 Weight 72.12 kg Zenaida Barksdale [facility] Work Phone: 11-09-2012 12:23-0400 BMI (Body Mass Index) 26.95 kg/m2 [facility] Work Phone: 11-09-2012 12:23-0400 Body Temperature 98 [degF] Barbie Kwok [facility] Work Phone: Comment on above: Method: Oral 11-09-2012 12:23-0400 Body weight 71.22 kg Barbie Kwok [facility] Work Phone: 11-09-2012 12:23-0400 BP Diastolic 82 mm[Hg] Barbie Kwok [facility] Work Phone: Comment on above: Patient Position: Sitting; Cuff Location : Left Arm; Cuff Size: Standard 11-09-2012 12:23-0400 BP Systolic 120 mm[Hg] Barbie Kwok [facility] Work Phone: Comment on above: Patient Position: Sitting; Cuff Location : Left Arm; Cuff Size: Standard 11-09-2012 12:23-0400 BSA (Body Surface Area) 1.76 m2 Barbie Kwok [facility] Work Phone: 11-09-2012 12:[id number] Height 162.56 cm Barbie Kwok [facility] Work Phone: 11-09-2012 12:23-0400 Pulse (Heart Rate) 72 /min Barbie Kwok [facility] Work Phone: Comment on above: Pattern: Regular 11-09-2012 12:23-0400 Respiratory Rate 16 /min Barbie Kwok [facility] Work Phone: Comment on above: Pattern: Unlabored 11-09-2012 12:23-0400 Weight 71.22 kg Zenaida Barksdale [facility] Work Phone: 10-27-2012 11:09-0400 BMI (Body Mass Index) 26.95 kg/m2 PIERRE Matthew LPN [facility] Work Phone: 10-27-2012 11:09-0400 Body weight 71.22 kg PIERRE Matthew LPN [facility] Work Phone: 10-27-2012 11:09-0400 BP Diastolic 78 mm[Hg] PIERRE Matthew LPN [facility] Work Phone: Comment on above: Patient Position: Sitting; Cuff Location : Left Arm; Cuff Size: Standard 10-27-2012 11:09-0400 BP Systolic 120 mm[Hg] PIERRE Matthew LPN [facility] Work Phone: Comment on above: Patient Position: Sitting; Cuff Location : Left Arm; Cuff Size: Standard 10-27-2012 11:09-0400 BSA (Body Surface Area) 1.76 m2 PIERRE Matthew LPN [facility] Work Phone: 10-27-2012 11:090400 Height 162.56 cm PIERRE Matthew LPN [facility] Work Phone: 10-27-2012 11:09-0400 Pulse (Heart Rate) 88 /min PIERRE Matthew LPN [facility] Work Phone: Comment on above: Pattern: Regular 10-27-2012 11:09-0400 Respiratory Rate 18 /min PIERRE Matthew LPN [facility] Work Phone: Comment on above: Pattern: Unlabored 10-27-2012 11:09-0400 Weight 71.22 kg Zenaida Barksdale [facility] Work Phone: 12-31-2011 12:04-0400 BMI (Body Mass Index) 24.89 kg/m2 PIERRE Matthew LPN [facility] Work Phone: 12-31-2011 12:04-0400 Body Temperature 97.8 [degF] PIERRE Matthew LPN [facility] Work Phone: Comment on above: Method: Oral 12-31-2011 12:04-0400 Body weight 65.77 kg PIERRE Matthew LPN [facility] Work Phone: 12-31-2011 12:04-0400 BP Diastolic 80 mm[Hg] PIERRE Matthew LPN [facility] Work Phone: Comment on above: Patient Position: Sitting; Cuff Location : Left Arm; Cuff Size: Standard 12-31-2011 12:04-0400 BP Systolic 118 mm[Hg] PIERRE Matthew LPN [facility] Work Phone: Comment on above: Patient Position: Sitting; Cuff Location : Left Arm; Cuff Size: Standard 12-31-2011 12:04-0400 BSA (Body Surface Area) 1.71 m2 PIERRE Matthew LPN [facility] Work Phone: 12-31-2011 12:04-0400 Height 162.56 cm PIERRE Matthew LPN [facility] Work Phone: 12-31-2011 12:04-0400 Pulse (Heart Rate) 74 /min PIERRE Matthew LPN [facility] Work Phone: Comment on above: Pattern: Regular 12-31-2011 12:04-0400 Respiratory Rate 18 /min PIERRE Matthew LPN [facility] Work Phone: Comment on above: Pattern: Unlabored 12-31-2011 12:04-0400 Weight 65.77 kg Zenaida Barksdale [facility] Work Phone: 11-16-2011 14:55-0400 BMI (Body Mass Index) 24.89 kg/m2 PIERRE Matthew LPN [facility] Work Phone: 11-16-2011 14:55-0400 Body Temperature 97.6 [degF] PIERRE Matthew LPN [facility] Work Phone: Comment on above: Method: Oral 11-16-2011 14:55-0400 Body weight 65.77 kg PIERRE Matthew LPN [facility] Work Phone: 11-16-2011 14:55-0400 BP Diastolic 80 mm[Hg] PIERRE Matthew LPN [facility] Work Phone: Comment on above: Patient Position: Sitting; Cuff Location : Left Arm; Cuff Size: Standard 11-16-2011 14:55-0400 BP Systolic 126 mm[Hg] PIERRE Matthew LPN [facility] Work Phone: Comment on above: Patient Position: Sitting; Cuff Location : Left Arm; Cuff Size: Standard 11-16-2011 14:55-0400 BSA (Body Surface Area) 1.71 m2 PIERRE Matthew LPN [facility] Work Phone: 11-16-2011 14:55-0400 Height 162.56 cm PIERRE Matthew LPN [facility] Work Phone: 11-16-2011 14:55-0400 Pulse (Heart Rate) 70 /min PIERRE Matthew LPN [facility] Work Phone: Comment on above: Pattern: Regular 11-16-2011 14:55-0400 Respiratory Rate 18 /min PIERRE Matthew LPN [facility] Work Phone: Comment on above: Pattern: Unlabored 11-16-2011 14:55-0400 Weight 65.77 kg Zenaida Barksdale [facility] Work Phone: 02-24-2011 08:52-0500 BMI (Body Mass Index) 24.03 kg/m2 Zenaida Barksdale [facility] Work Phone: 02-24-2011 08:52-0500 Body weight 63.5 kg Zenaida Barksdale [facility] Work Phone: 02-24-2011 08:52-0500 BP Diastolic 84 mm[Hg] Zenaida Barksdale [facility] Work Phone: Comment on above: Patient Position: Sitting; Cuff Location : Left Arm; Cuff Size: Standard 02-24-2011 08:52-0500 BP Systolic 128 mm[Hg] Zenaida Barksdale [facility] Work Phone: Comment on above: Patient Position: Sitting; Cuff Location : Left Arm; Cuff Size: Standard 02-24-2011 08:52-0500 BSA (Body Surface Area) 1.68 m2 Zenaida Barksdale [facility] Work Phone: 02-24-2011 08:52-0500 Height 162.56 cm Zenaida Barksdale [facility] Work Phone: 02-24-2011 08:52-0500 Pulse (Heart Rate) 74 /min Zenaida Barksdale [facility] Work Phone: Comment on above: Pattern: Regular 02-24-2011 08:52-0500 Respiratory Rate 18 /min Zenaida Barksdale [facility] Work Phone: 02-24-2011 08:52-0500 Weight 63.5 kg Zenaida Barksdale [facility] Work Phone: 05-01-2010 12:07-0500 BMI (Body Mass Index) 24.01 kg/m2 PIERRE Matthew LPN [facility] Work Phone: 05-01-2010 12:07-0500 Body Temperature 97.6 [degF] PIERRE Matthew LPN [facility] Work Phone: Comment on above: Method: Oral 05-01-2010 12:07-0500 Body weight 63.96 kg PIERRE Matthew LPN [facility] Work Phone: 05-01-2010 12:07-0500 BP Diastolic 80 mm[Hg] PIERRE Matthew LPN [facility] Work Phone: Comment on above: Patient Position: Sitting; Cuff Location : Left Arm; Cuff Size: Standard 05-01-2010 12:07-0500 BP Systolic 130 mm[Hg] PIERRE Matthew LPN [facility] Work Phone: Comment on above: Patient Position: Sitting; Cuff Location : Left Arm; Cuff Size: Standard 05-01-2010 12:07-0500 BSA (Body Surface Area) 1.69 m2 PIERRE Matthew LPN [facility] Work Phone: 05-01-2010 12:07-0500 Height 163.19 cm PIERRE Matthew LPN [facility] Work Phone: 05-01-2010 12:07-0500 Pulse (Heart Rate) 64 /min PIERRE Matthew LPN [facility] Work Phone: Comment on above: Pattern: Regular 05-01-2010 12:07-0500 Respiratory Rate 18 /min PIERRE Matthew LPN [facility] Work Phone: Comment on above: Pattern: Unlabored 05-01-2010 12:07-0500 Weight 63.96 kg Zenaida Barksdale [facility] Work Phone: 02-10-2010 13:45-0400 Body Temperature 98.1 [degF] Cristine Shukla LPN [facility] Work Phone: Comment on above: Method: Oral 02-10-2010 13:45-0400 Body weight 64.18 kg Cristine Shukla LPN [facility] Work Phone: 02-10-2010 13:45-0400 BP Diastolic 90 mm[Hg] Cristine Shukla LPN [facility] Work Phone: Comment on above: Patient Position: Sitting; Cuff Location : Left Arm; Cuff Size: Standard 02-10-2010 13:45-0400 BP Systolic 148 mm[Hg] Cristine Shukla LPN [facility] Work Phone: Comment on above: Patient Position: Sitting; Cuff Location : Left Arm; Cuff Size: Standard 02-10-2010 13:45-0400 Pulse (Heart Rate) 60 /min Cristine Shukla LPN [facility] Work Phone: Comment on above: Pattern: Regular 02-10-2010 13:45-0400 Respiratory Rate 16 /min Cristine Shukla LPN [facility] Work Phone: Comment on above: Pattern: Unlabored 02-10-2010 13:45-0400 Weight 64.18 kg Zenaida Barksdale [facility] Work Phone: 01-07-2010 13:15-0400 Body Temperature 97.6 [degF] PIERRE Matthew [facility] Work Phone: Comment on above: Method: Oral 01-07-2010 13:15-0400 Body weight 63.05 kg PIERRE Matthew [employer] [facility] Work Phone: 01-07-2010 13:15-0400 Respiratory Rate 18 /min PIERRE Matthew [employer] [facility] Work Phone: Comment on above: Pattern: Unlabored 01-07-2010 13:15-0400 Weight 63.05 kg Zenaida Barksdale [facility] Work Phone: 12-12-2009 13:34-0400 Body Temperature 98.2 [degF] PIERRE Matthew LPN [facility] Work Phone: Comment on above: Method: Oral 12-12-2009 13:34-0400 Body weight 63.96 kg PIERRE Matthew LPN [facility] Work Phone: 12-12-2009 13:34-0400 BP Diastolic 78 mm[Hg] PIERRE Matthew [employer] [facility] Work Phone: Comment on above: Patient Position: Sitting; Cuff Location : Left Arm; Cuff Size: Standard 12-12-2009 13:34-0400 BP Systolic 128 mm[Hg] PIERRE Matthew [facility] Work Phone: Comment on above: Patient Position: Sitting; Cuff Location : Left Arm; Cuff Size: Standard 12-12-2009 13:34-0400 Pulse (Heart Rate) 70 /min PIERRE Matthew [facility] Work Phone: Comment on above: Pattern: Regular 12-12-2009 13:34-0400 Respiratory Rate 18 /min PIERRE Matthew [facility] Work Phone: Comment on above: Pattern: Unlabored 12-12-2009 13:34-0400 Weight 63.96 kg Zenaida Barksdale [facility] Work Phone: 10-03-2009 12:19-0400 Body weight 64.86 kg PIERRE Matthew [facility] Work Phone: 10-03-2009 12:19-0400 BP Diastolic 80 mm[Hg] PIERRE Matthew [facility] Work Phone: Comment on above: Patient Position: Sitting; Cuff Location : Left Arm; Cuff Size: Standard 10-03-2009 12:19-0400 BP Systolic 136 mm[Hg] PIERRE Matthew [facility] Work Phone: Comment on above: Patient Position: Sitting; Cuff Location : Left Arm; Cuff Size: Standard 10-03-2009 12:19-0400 Pulse (Heart Rate) 78 /min PIERRE Matthew [facility] Work Phone: Comment on above: Pattern: Regular 10-03-2009 12:19-0400 Respiratory Rate 18 /min PIERRE Matthew RAUL [facility] Work Phone: Comment on above: Pattern: Unlabored 10-03-2009 12:19-0400 Weight 64.86 kg Zenaida Barksdale [facility] Work Phone: 09-05-2009 13:18-0400 Body weight 64.86 kg Zenaida Barksdale [facility] Work Phone: 09-05-2009 13:18-0400 BP Diastolic 80 mm[Hg] Zenaida Barksdale [facility] Work Phone: Comment on above: Patient Position: Sitting; Cuff Location : Left Arm; Cuff Size: Standard 09-05-2009 13:18-0400 BP Systolic 142 mm[Hg] Zenaida Barksdale [facility] Work Phone: Comment on above: Patient Position: Sitting; Cuff Location : Left Arm; Cuff Size: Standard 09-05-2009 13:18-0400 Pulse (Heart Rate) 80 /min Zenaida Barksdale [facility] Work Phone: Comment on above: Pattern: Regular 09-05-2009 13:18-0400 Respiratory Rate 18 /min Zenaida Barksdale [facility] Work Phone: Comment on above: Pattern: Unlabored 09-05-2009 13:18-0400 Weight 64.86 kg Zenaida Barksdale [facility] Work Phone: 07-26-2009 10:39-0400 Body Temperature 98.3 [degF] Zenaida Barksdale [facility] Work Phone: Comment on above: Method: Oral 07-26-2009 10:39-0400 Body weight 68.04 kg Zenaida Barksdale [facility] Work Phone: 07-26-2009 10:39-0400 BP Diastolic 68 mm[Hg] Zenaida Barksdale [facility] Work Phone: Comment on above: Patient Position: Sitting; Cuff Location : Left Arm; Cuff Size: Standard 07-26-2009 10:39-0400 BP Systolic 122 mm[Hg] Zenaida Barksdale [facility] Work Phone: Comment on above: Patient Position: Sitting; Cuff Location : Left Arm; Cuff Size: Standard 07-26-2009 10:39-0400 Pulse (Heart Rate) 84 /min Zenaida Barksdale [facility] Work Phone: Comment on above: Pattern: Regular 07-26-2009 10:39-0400 Respiratory Rate 16 /min Zenaida Barksdale [facility] Work Phone: Comment on above: Pattern: Unlabored 07-26-2009 10:39-0400 Weight 68.04 kg Zenaida Barksdale [facility] Work Phone: 01-07-2009 16:24-0400 Body weight 73.48 kg PIERRE Matthew RAUL [facility] Work Phone: 01-07-2009 16:24-0400 BP Diastolic 80 mm[Hg] PIERRE Matthew RAUL [facility] Work Phone: Comment on above: Patient Position: Sitting; Cuff Location : Left Arm; Cuff Size: Standard 01-07-2009 16:24-0400 BP Systolic 126 mm[Hg] PIERRE Matthew RAUL [facility] Work Phone: Comment on above: Patient Position: Sitting; Cuff Location : Left Arm; Cuff Size: Standard 01-07-2009 16:24-0400 Head Circumference 0 cm Zenaida Barksdale [facility] Work Phone: 01-07-2009 16:24-0400 Head Occipital-frontal circumference 0 cm PIERRE Matthew RAUL [facility]; [facility] Work Phone: 01-07-2009 16:24-0400 Height 0 cm PIERRE Matthew RAUL [facility] Work Phone: 01-07-2009 16:24-0400 Pulse (Heart Rate) 78 /min PIERRE Matthew [employer] [facility] Work Phone: Comment on above: Pattern: Regular 01-07-2009 16:24-0400 Respiratory Rate 16 /min PIERRE Matthew RAUL [facility] Work Phone: Comment on above: Pattern: Unlabored 01-07-2009 16:24-0400 Weight 73.48 kg Zenaida Barksdale [facility] Work Phone: 11-29-2008 12:56-0400 Body weight 68.96 kg Zenaida Barksdale [facility] Work Phone: 11-29-2008 12:56-0400 BP Diastolic 88 mm[Hg] Zenaida Barksdale [facility] Work Phone: Comment on above: Patient Position: Supine; Cuff Location: Left Arm; Cuff Size: Standard 11-29-2008 12:56-0400 BP Systolic 152 mm[Hg] Zenaida Barksdale [facility] Work Phone: Comment on above: Patient Position: Supine; Cuff Location: Left Arm; Cuff Size: Standard 11-29-2008 12:56-0400 Head Circumference 0 cm Zenaida Barksdale [facility] Work Phone: 11-29-2008 12:56-0400 Head Occipital-frontal circumference 0 cm Zenaida Barksdale DO Work Phone: [facility]; [facility] Work Phone: 11-29-2008 12:56-0400 Height 0 cm Zenaida Barksdale [facility] Work Phone: 11-29-2008 12:56-0400 Pulse (Heart Rate) 88 /min Zenaida Barksdale [facility] Work Phone: Comment on above: Pattern: Regular 11-29-2008 12:56-0400 Respiratory Rate 16 /min Zenaida Barksdale [facility] Work Phone: Comment on above: Pattern: Unlabored 11-29-2008 12:56-0400 Weight 68.96 kg Zenaida Barksdale [facility] Work Phone: 11-05-2008 12:01-0400 Body Temperature 98 [degF] Zenaiad Barksdale [facility] Work Phone: Comment on above: Method: Undefined 11-05-2008 12:01-0400 Body weight 0 kg Zenaida Barksdale [facility] Work Phone: 11-05-2008 12:01-0400 BP Diastolic 90 mm[Hg] Zenaida Barksdale [facility] Work Phone: Comment on above: Patient Position: Sitting; Cuff Location : Left Arm; Cuff Size: Standard 11-05-2008 12:01-0400 BP Systolic 126 mm[Hg] Zenaida Barksdale [facility] Work Phone: Comment on above: Patient Position: Sitting; Cuff Location : Left Arm; Cuff Size: Standard 11-05-2008 12:01-0400 Head Circumference 0 cm Zenaida Barksdale [facility] Work Phone: 11-05-2008 12:01-0400 Head Occipital-frontal circumference 0 cm Zenaida Barksdale DO Work Phone: [facility]; [facility] Work Phone: 11-05-2008 12:01-0400 Height 0 cm Zenaida Barksdale [facility] Work Phone: 11-05-2008 12:01-0400 Pulse (Heart Rate) 84 /min Zenaida Barksdale [facility] Work Phone: Comment on above: Pattern: Regular 11-05-2008 12:01-0400 Respiratory Rate 18 /min Zenaida Barksdale [facility] Work Phone: Comment on above: Pattern: Undefined 11-05-2008 12:01-0400 Weight 0 kg Zenaida Barksdale [facility] Work Phone: 06-25-2008 16:46-0400 Body weight 68.96 kg PIERRE Matthew RAUL [facility] Work Phone: 06-25-2008 16:46-0400 BP Diastolic 76 mm[Hg] PIERRE Matthew LPN [facility] Work Phone: Comment on above: Patient Position: Sitting; Cuff Location : Left Arm; Cuff Size: Standard 06-25-2008 16:46-0400 BP Systolic 116 mm[Hg] PIERRE Matthew LPN [facility] Work Phone: Comment on above: Patient Position: Sitting; Cuff Location : Left Arm; Cuff Size: Standard 06-25-2008 16:46-0400 Head Circumference 0 cm Zenaida Barksdale [facility] Work Phone: 06-25-2008 16:46-0400 Head Occipital-frontal circumference 0 cm PIERRE Matthew LPN [facility]; [facility] Work Phone: 06-25-2008 16:46-0400 Height 0 cm PIERRE Matthew [employer] [facility] Work Phone: 06-25-2008 16:46-0400 Pulse (Heart Rate) 72 /min PIERRE Matthew [employer] [facility] Work Phone: Comment on above: Pattern: Regular 06-25-2008 16:46-0400 Respiratory Rate 16 /min PIERRE Matthew [employer] [facility] Work Phone: Comment on above: Pattern: Unlabored 06-25-2008 16:46-0400 Weight 68.96 kg Zenaida Barksdale [facility] Work Phone: 05-21-2008 16:55-0500 Body weight 68.95 kg PIERRE Matthew [employer] [facility] Work Phone: 05-21-2008 16:55-0500 BP Diastolic 80 mm[Hg] PIERRE Matthew [employer] [facility] Work Phone: Comment on above: Patient Position: Sitting; Cuff Location : Left Arm; Cuff Size: Standard 05-21-2008 16:55-0500 BP Systolic 120 mm[Hg] PIERRE Matthew [facility] Work Phone: Comment on above: Patient Position: Sitting; Cuff Location : Left Arm; Cuff Size: Standard 05-21-2008 16:55-0500 Head Circumference 0 cm Zenaida Barksdale [facility] Work Phone: 05-21-2008 16:55-0500 Head Occipital-frontal circumference 0 cm PIERRE Matthew LPN [facility]; [facility] Work Phone: 05-21-2008 16:55-0500 Height 0 cm PIERRE Matthew [employer] [facility] Work Phone: 05-21-2008 16:55-0500 Pulse (Heart Rate) 70 /min PIERRE Matthew LPN [facility] Work Phone: Comment on above: Pattern: Regular 05-21-2008 16:55-0500 Respiratory Rate 16 /min PIERRE Matthew LPN [facility] Work Phone: Comment on above: Pattern: Unlabored 05-21-2008 16:55-0500 Weight 68.95 kg Zenaida Barksdale [facility] Work Phone: 11-21-2007 16:02-0400 Body Temperature 98.2 [degF] PIERRE Matthew LPN [facility] Work Phone: Comment on above: Method: Oral 11-21-2007 16:02-0400 Body weight 0 kg PIERRE Matthew LPN [facility] Work Phone: 11-21-2007 16:02-0400 BP Diastolic 78 mm[Hg] PIERRE Matthew LPN [facility] Work Phone: Comment on above: Patient Position: Sitting; Cuff Location : Left Arm; Cuff Size: Standard 11-21-2007 16:02-0400 BP Systolic 124 mm[Hg] PIERRE Matthew LPN [facility] Work Phone: Comment on above: Patient Position: Sitting; Cuff Location : Left Arm; Cuff Size: Standard 11-21-2007 16:02-0400 Head Circumference 0 cm Zenaida Barksdale [facility] Work Phone: 11-21-2007 16:02-0400 Head Occipital-frontal circumference 0 cm PIERRE Mattehw LPN [facility]; [facility] Work Phone: 11-21-2007 16:02-0400 Height 0 cm PIERRE Matthew LPN [facility] Work Phone: 11-21-2007 16:02-0400 Pulse (Heart Rate) 74 /min PIERRE Matthew LPN [facility] Work Phone: Comment on above: Pattern: Regular 11-21-2007 16:02-0400 Respiratory Rate 18 /min PIERRE Matthew LPN [facility] Work Phone: Comment on above: Pattern: Unlabored 11-21-2007 16:02-0400 Weight 0 kg Zenaida Barksdale [facility] Work Phone: 11-03-2007 13:26-0400 BMI (Body Mass Index) 25.72 kg/m2 PIERRE Matthew LPN [facility] Work Phone: 11-03-2007 13:26-0400 Body Temperature 97.8 [degF] PIERRE Matthew LPN [facility] Work Phone: Comment on above: Method: Oral 11-03-2007 13:26-0400 Body weight 68.49 kg PIERRE Matthew LPN [facility] Work Phone: 11-03-2007 13:26-0400 BP Diastolic 74 mm[Hg] PIERRE Matthew LPN [facility] Work Phone: Comment on above: Patient Position: Sitting; Cuff Location : Left Arm; Cuff Size: Standard 11-03-2007 13:26-0400 BP Systolic 118 mm[Hg] PIERRE Matthew LPN [facility] Work Phone: Comment on above: Patient Position: Sitting; Cuff Location : Left Arm; Cuff Size: Standard 11-03-2007 13:26-0400 BSA (Body Surface Area) 1.74 m2 PIERRE Matthew LPN [facility] Work Phone: 11-03-2007 13:26-0400 Head Circumference 0 cm Zenaida Barksdale [facility] Work Phone: 11-03-2007 13:26-0400 Head Occipital-frontal circumference 0 cm PIERRE Matthew LPN [facility]; [facility] Work Phone: 11-03-2007 13:26-0400 Height 163.19 cm PIERRE Matthew LPN [facility] Work Phone: 11-03-2007 13:26-0400 Pulse (Heart Rate) 64 /min PIERRE Matthew LPN [facility] Work Phone: Comment on above: Pattern: Regular 11-03-2007 13:26-0400 Respiratory Rate 16 /min PIERRE Matthew LPN [facility] Work Phone: Comment on above: Pattern: Unlabored 11-03-2007 13:26-0400 Weight 68.49 kg Zenaida Barksdale [facility] Work Phone: 05-06-2007 10:52-0500 Body Temperature 99.3 [degF] Zenaida Barksdale [facility] Work Phone: Comment on above: Method: Oral 05-06-2007 10:52-0500 Body weight 0 kg Zenaida Barksdale [facility] Work Phone: 05-06-2007 10:52-0500 BP Diastolic 76 mm[Hg] Zenaida Barksdale [facility] Work Phone: Comment on above: Patient Position: Sitting; Cuff Location : Left Arm; Cuff Size: Standard 05-06-2007 10:52-0500 BP Systolic 124 mm[Hg] Zenaida Barksdale [facility] Work Phone: Comment on above: Patient Position: Sitting; Cuff Location : Left Arm; Cuff Size: Standard 05-06-2007 10:52-0500 Head Circumference 0 cm Zenaida Barksdale [facility] Work Phone: 05-06-2007 10:52-0500 Head Occipital-frontal circumference 0 cm Zenaida Barksdale DO Work Phone: [facility] Work Phone: 05-06-2007 10:52-0500 Height 0 cm Zenaida Barksdale [facility] Work Phone: 05-06-2007 10:52-0500 Pulse (Heart Rate) 92 /min Zenaida Barksdale [facility] Work Phone: Comment on above: Pattern: Regular 05-06-2007 10:52-0500 Respiratory Rate 18 /min Zenaida Barksdale [facility] Work Phone: Comment on above: Pattern: Unlabored 05-06-2007 10:52-0500 Weight 0 kg Zenaida Barksdale [facility] Work Phone: 07-30-2006 09:10-0400 Body Temperature 98.5 [degF] Zenaida Barksdale [facility] Work Phone: Comment on above: Method: Oral 07-30-2006 09:10-0400 Body weight 0 kg Zenaida Barksdale [facility] Work Phone: 07-30-2006 09:10-0400 BP Diastolic 76 mm[Hg] Zenaida Barksdale [facility] Work Phone: Comment on above: Patient Position: Sitting; Cuff Location : Right Arm; Cuff Size: Standard 07-30-2006 09:10-0400 BP Systolic 118 mm[Hg] Zenaida Barksdale [facility] Work Phone: Comment on above: Patient Position: Sitting; Cuff Location : Right Arm; Cuff Size: Standard 07-30-2006 09:10-0400 Head Circumference 0 cm Zenaida Barksdale [facility] Work Phone: 07-30-2006 09:10-0400 Head Occipital-frontal circumference 0 cm Zenaida Barksdale DO Work Phone: [facility]; [facility] Work Phone: 07-30-2006 09:10-0400 Height 0 cm Zenaida Barksdale [facility] Work Phone: 07-30-2006 09:10-0400 Pulse (Heart Rate) 108 /min Zenaida Barksdale [facility] Work Phone: Comment on above: Pattern: Regular 07-30-2006 09:10-0400 Respiratory Rate 16 /min Zenaida Barksdale [facility] Work Phone: Comment on above: Pattern: Unlabored 07-30-2006 09:10-0400 Weight 0 kg Zenaida Barksdale [facility] Work Phone: Encounters Encounter Date Encounter Type Care Provider Facility Start: 02-23-2025 End: 02-23-2025 ambulatory Zenaida Jaya Facility:[facility] Start: 10-12-2024 End: 10-12-2024 ambulatory Zenaida Jaya Facility:[facility] Start: 10-10-2024 ambulatory DANAE DIPIKA Facility: [facility] Start: 10-10-2024 End: 10-10-2024 Subsequent hospital visit by physician Diagnostic Mammo [facility] Comment on above: Abnormal mammogram [ R92.8] Start: 10-10-2024 End: 10-10-2024 Telephone encounter Raymond Meyers MD Work Phone: Mammography Comment on above: Mammogram Result Mariann l Back (right breast diag mamm and us cb per ld) Start: 09-29-2024 End: 09-29-2024 Follow-up encounter Danae Bar APRN.SNOW REMOVAL/PLOWING Work Phone: OB/Gynecology Comment on above: Orders Start: 09-28-2024 End: 09-28-2024 Patient encounter procedure Danae Bar APRN.SNOW REMOVAL/PLOWING Work Phone: OB/Gynecology Comment on above: Encounter for gyneco logical examination (general) (routine) without abnormal findings (Primary Dx); Encounter for screening mammogram for breast cancer Start: 09-28-2024 End: 09-28-2024 Patient encounter status Danae Bar APRN.SNOW REMOVAL/PLOWING Work Phone: [facility] Start: 09-28-2024 End: 09-28-2024 ambulatory DANAEANGELA ARAUJOF Facility:[facility] Start: 09-28-2024 Encounter for gynecological examination (general) (routine) without abnormal findings DANAE BAR [facility] Start: 09-28-2024 End: 09-28-2024 Subsequent hospital visit by physician Screen Mammo [facility] Start: 03-15-2024 End: 03-15-2024 ambulatory SULAIMAN WHYTE Facility:[facility] Start: 03-15-2024 End: 03-15-2024 Patient encounter procedure Sulaiman Whyte MD Work Phone: Pulmonary Medicine Comment on above: Pulmonary hypertensi on (HCC) (Primary Dx) Start: 03-03-2024 ambulatory SULAIMAN WHYTE Facilit y:[facility] Start: 03-03-2024 End: 03-03-2024 Subsequent hospital visit by physician Echo Lab [place] [facility] Comment on above: Pulmonary hypertensi on (HCC) [I27.20] Start: 02-25-2024 End: 02-25-2024 ambulatory Zenaida Barksdale Facility:[facility] Start: 10-02-2023 Documentation procedure Mammog annmarie Coordinator [facility] Department Start: 10-02-2023 Letter encounter Mammography Coordinator [facility] Department Start: 09-27-2023 End: 09-27-2023 Patient encounter procedure Danae Bar DAMPER [employer]TER.SNOW REMOVAL/PLOWING Work Phone: OB/Gynecology Comment on above: Encounter for gyneco logical examination (general) (routine) without abnormal findings (Primary Dx); Encounter for screening mammogram for breast cancer Start: 09-27-2023 End: 09-27-2023 Patient encounter status Danae Bar APRN.SNOW REMOVAL/PLOWING Work Phone: [facility] Start: 09-27-2023 End: 09-27-2023 Subsequent hospital visit by physician Screen Mammo [facility] Comment on above: Encounter for screen ing mammogram for breast cancer [Z12.31] Start: 09-17-2023 Telephone encounter Sulaiman Whyte MD Work Phone: Pulmonary Medicine Comment on above: Other (Medical R ecords) Start: 06-29-2023 End: 06-29-2023 Patient encounter procedure Rina Puckett DAMPER FITTER.SNOW REMOVAL/PLOWING Work Phone: [facility] Comment on above: Strep throat (Primar y Dx) Start: 01-18-2023 Telephone encounter Sulaiman Whyte MD Work Phone: Pulmonary Medicine Comment on above: Results Start: 01-15-2023 End: 01-15-2023 Subsequent hospital visit by physician [facility] Comment on above: Pulmonary hypertensi on (HCC) [I27.20] Start: 01-08-2023 Zenaida Arteagashirin n DO Work Phone: [facility] Start: 01-08-2023 End: 01-08-2023 Patient encounter status Zenaida Barksdale DO Work Phone: [facility]; [facility] Work Phone: Start: 01-08-2023 End: 01-08-2023 Periodic preventive med est patient 40-64yrs Zenaida Jaya DO Work Phone: [facility] Start: 11-20-2022 End: 11-20-2022 Patient encounter procedure Sulaiman Whyte MD Work Phone: Pulmonary Medicine Comment on above: Pulmonary hypertensi on (HCC) (Primary Dx); Heart murmur; Hypothyroidism, unspecified type; Essential hypertension, malignant; Generalized anxiety disorder Start: 09-02-2022 End: 09-02-2022 Office outpatient visit 15 minutes Zenaida Jaya DO Work Phone: [facility] Start: 08-24-2022 Documentation procedure Mammog annmarie Coordinator [facility] Start: 08-24-2022 Letter encounter Mammography Coordinator [facility] Department Start: 08-21-2022 End: 08-21-2022 Subsequent hospital visit by physician Screen Mammo [facility] Comment on above: Encounter for screen ing mammogram for breast cancer [Z12.31] Start: 07-10-2022 End: 07-10-2022 Subsequent hospital visit by physician Card Lab [facility] [place] [facility] Comment on above: Pulmonary hypertensi on (HCC) [I27.20] Start: 07-03-2022 ambulatory Zenaida Jaya DO [facility] Start: 07-03-2022 End: 07-03-2022 Office outpatient visit 25 minutes Zenaida Jaya DO Work Phone: [facility] Start: 07-03-2022 Review Zenaida Fearo n DO Work Phone: [facility] Start: 05-15-2022 Orders Only Sulaiman Andrade i, MD Work Phone: [facility]monary Medicine Comment on above: Pulmonary hypertensi on (HCC) (Primary Dx) Start: 03-27-2022 End: 03-27-2022 Patient encounter procedure Zenaida Jaya DO Work Phone: [facility] Start: 03-27-2022 End: 03-27-2022 Zenaida Jaya DO Work Phone: [facility] Start: 02-27-2022 End: 02-28-2022 ambulatory UNKNOWN PROVIDER [facility] Start: 02-20-2022 End: 02-20-[address] Zenaida Barksdale Work Phone: [facility] Work Phone: Start: 02-20-2022 End: 02-20-[address] Zenaida Barksdale Work Phone: [facility]-Laboratory Start: 02-12-2022 End: 02-12-[address] Zenaida Barksdale Work Phone: [facility] Work Phone: Start: 02-12-2022 End: 02-12-[address] Zenaida Barksdale Work Phone: [facility]-Cardiovascula r Services Start: 02-06-2022 End: 02-06-[address] Zenaida Barksdale Work Phone: [facility] Start: 01-29-2022 End: 01-29-[address] Zenaida Barksdale Work Phone: [facility] Start: 01-23-2022 End: 01-23-2022 Emergency department patient visit Dr. Zenaida Barksdale Work Phone: [facility]-Emergency Department Start: 01-23-2022 Non-patient / Non-visit Dr. Raina Barksdale Work Phone: [facility] Start: 01-09-2022 End: 01-09-2022 Office outpatient visit 25 minutes Zenaida Barksdale DO Work Phone: [facility] Start: 01-06-2022 Non-patient / Non-visit Dr. Raina Barksdale Work Phone: [facility] Start: 01-06-2022 End: 01-06-[address] Zenaida Barksdale Work Phone: [facility] Work Phone: Start: 01-06-2022 End: 01-06-[address] Zenaida Barksdale Work Phone: [facility]Cardiov[facility] Start: 12-15-2021 Review Zenaida coronado DO Work Phone: [facility] Start: 12-12-2021 End: 12-12-2021 Office outpatient visit 15 minutes Zenaida Barksdale DO Work Phone: [facility] Start: 12-10-2021 End: 12-10-2021 Lab Order Zenaidaromeo Barksdale DO Work Phone: [facility] Start: 12-10-2021 End: 12-10-2021 Zenaida Barksdale DO Work Phone: [facility] Start: 12-06-2021 End: 12-07-2021 Emergency department patient visit [facility]-Emergency Department Start: 08-15-2021 Documentation procedure Mammog annmarie Coordinator [facility] Start: 08-15-2021 Letter encounter Mammography Coordinator [facility] Department Start: 08-15-2021 End: 08-15-2021 Patient encounter procedure Sommer Matthew MD Work Phone: OB/Gynecology Comment on above: Encounter for gyneco logical examination (general) (routine) without abnormal findings; Screening for cervical cancer; Encounter for screening for human papillomavirus (HPV); Encounter for screening mammogram for breast cancer Start: 08-15-2021 End: 08-15-2021 Patient encounter status Sommer Matthew MD Work Phone: OB/Gynecology Start: 08-15-2021 End: 08-15-2021 Subsequent hospital visit by physician Screen Mammo [facility] Comment on above: Encounter for gyneco logical examination (general) (routine) without abnormal findings [Z01.419] Start: 07-14-2021 Refill Sommer rooney MD Work Phone: OB/Gynecology Comment on above: Refill Request Start: 07-10-2021 End: 07-10-2021 Office outpatient visit 10 minutes Zenaida Barksdale DO Work Phone: [facility] Start: 11-01-2020 End: 11-01-2020 Office outpatient visit 25 minutes Zenaida Barksdale DO Work Phone: [facility] Start: 10-24-2020 End: 10-24-2020 Phone Encounter Zenaida Barksdale DO Work Phone: [facility] Start: 10-24-2020 End: 10-24-2020 Zenaida Barksdale DO Work Phone: [facility] Start: 04-10-2020 End: 04-10-2020 Office outpatient visit 15 minutes Zenaida Barksdale [facility] Start: 01-10-2020 End: 01-10-2020 Office outpatient visit 25 minutes Zenaida Barksdale [facility] Start: 09-01-2019 End: 09-01-2019 Office outpatient visit 25 minutes Zenaida Barksdale [facility] Start: 05-05-2019 End: 05-05-2019 Office outpatient visit 25 minutes Zenaida Jaya [facility] Start: 03-24-2019 End: 03-24-2019 Office outpatient visit 15 minutes Zenaida Barksdale [facility] Start: 10-28-2018 End: 10-28-2018 Office outpatient visit 15 minutes Zenaida Jaya [facility] Start: 10-28-2018 Review Zenaida Barksdale [facility] Start: 06-10-2018 End: 06-10-2018 Phone Encounter Zenaida Nice [facility] Start: 06-10-2018 End: 06-10-2018 Zenaida Barksdale DO Work Phone: [facility] Start: 04-29-2018 End: 04-29-2018 Office outpatient visit 15 minutes Zenaida Barksdale [facility] Start: 02-18-2018 End: 02-18-2018 Periodic preventive med est patient 40-64yrs Zenaida Barksdale [facility] Start: 02-18-2018 End: 02-18-2018 Physical examination Zenaida Barksdale DO Work Phone: [facility] Start: 04-21-2017 End: 04-21-2017 Office outpatient visit 15 minutes Zenaida Barksdale [facility] Start: 03-25-2017 End: 03-25-2017 Office outpatient visit 15 minutes Zenaida Barksdale [facility] Start: 03-15-2017 End: 03-15-2017 Lab Order Zenaida Barksdale [facility] Start: 03-15-2017 End: 03-15-2017 Zenaida Barksdale DO Work Phone: [facility] Start: 03-09-2017 End: 03-09-2017 Periodic preventive med est patient 40-64yrs Zenaida Barksdale [facility] Start: 03-09-2017 End: 03-09-2017 Physical examination Zenaida Barksdale DO Work Phone: [facility] Start: 01-14-2016 End: 01-14-2016 Patient encounter Zenaida Barksdale [facility] Start: 01-14-2016 End: 01-14-2016 Zenaida Barksdale DO Work Phone: [facility] Start: 09-09-2015 End: 09-09-2015 Office outpatient visit 15 minutes Zenaida Barksdale [facility] Start: 09-09-2015 End: 09-09-2015 Physical examination Zenaida Barksdale DO Work Phone: [facility] Start: 06-11-2015 End: 06-11-2015 Periodic preventive med est patient 18-39 yrs Zenaida Barksdale [facility] Start: 06-11-2015 End: 06-11-2015 Physical examination Zenaida Barksdale DO Work Phone: [facility] Start: 02-22-2014 End: 02-22-2014 Office outpatient visit 40 minutes Zenaida Barksdale [facility] Start: 11-14-2013 End: 11-14-2013 Office outpatient visit 25 minutes Zenaida Barksdale [facility] Start: 10-10-2013 End: 10-10-2013 Patient encounter Zenaida Barksdale [facility] Start: 10-10-2013 End: 10-10-2013 Zenaida Barksdale DO Work Phone: [facility] Start: 08-18-2013 End: 08-18-2013 Patient encounter Zenaida Barksdale [facility] Start: 08-18-2013 End: 08-18-2013 Zenaida Barksdale DO Work Phone: [facility] Start: 01-03-2013 End: 01-03-2013 Patient encounter Zenaida Barksdale [facility] Start: 01-03-2013 End: 01-03-2013 Zenaida Barksdale DO Work Phone: [facility] Start: 11-09-2012 End: 11-09-2012 Patient encounter Zenaida Barksdale [facility] Start: 11-09-2012 End: 11-09-2012 Zenaida Barksdale DO Work Phone: [facility] Start: 10-27-2012 End: 10-27-2012 Patient encounter Zenaida Barksdale [facility] Start: 10-27-2012 End: 10-27-2012 Zenaida Barksdale DO Work Phone: [facility] Start: 12-31-2011 End: 12-31-2011 Patient encounter Zenaida Barksdale [facility] Start: 12-31-2011 End: 12-31-2011 Zenaida Barksdale DO Work Phone: [facility] Start: 11-16-2011 End: 11-16-2011 Patient encounter Zenaida Barksdale [facility] Start: 11-16-2011 End: 11-16-2011 Physical examination Zenaida Barksdale DO Work Phone: [facility] Start: 11-16-2011 End: 11-16-2011 Zenaida Barksdale DO Work Phone: [facility] Start: 02-24-2011 End: 02-24-2011 Office outpatient visit 15 minutes Zenaida Barksdale [facility] Start: 05-01-2010 End: 05-01-2010 Patient encounter Zenaida Barksdale [facility] Start: 05-01-2010 End: 05-01-2010 Zenaida Barksdale DO Work Phone: [facility] Start: 02-10-2010 End: 02-10-2010 Patient encounter Zenaida Barksdale [facility] Start: 02-10-2010 End: 02-10-2010 Zenaida Barksdale DO Work Phone: [facility] Start: 01-07-2010 End: 01-07-2010 Patient encounter Zenaida Barksdale [facility] Start: 01-07-2010 End: 01-07-2010 Zenaida Barksdale DO Work Phone: [facility] Start: 01-07-2010 End: 01-07-2010 Patient encounter Zenaida Barksdale [facility] Start: 01-07-2010 End: 01-07-2010 Zenaida Barksdale DO Work Phone: [facility] Start: 12-12-2009 End: 12-12-2009 Office outpatient visit 15 minutes Zenaida Barksdale [facility] Start: 10-03-2009 End: 10-03-2009 Office outpatient visit 15 minutes Zenaida Barksdale [facility] Start: 09-05-2009 End: 09-05-2009 Office outpatient visit 15 minutes Zenaida Barksdale [facility] Start: 07-26-2009 End: 07-26-2009 Patient encounter Zenaida Barksdale [facility] Start: 07-26-2009 End: 07-26-2009 Zenaida Barksdale DO Work Phone: [facility] Start: 01-07-2009 End: 01-07-2009 Patient encounter Zenaida Barksdale [facility] Start: 01-07-2009 End: 01-07-2009 Zenaida Barksdale DO Work Phone: [facility] Start: 11-29-2008 End: 11-29-2008 Patient encounter Zenaida Barksdale [facility] Start: 11-29-2008 End: 11-29-2008 Zenaida Barksdale DO Work Phone: [facility] Start: 11-05-2008 End: 11-12-2008 Patient encounter Zenaida Barksdale [facility] Start: 11-05-2008 End: 11-12-2008 Zenaida Barksdale DO Work Phone: [facility] Start: 06-25-2008 End: 06-25-2008 Office outpatient visit 15 minutes Zenaida Barksdale [facility] Start: 05-21-2008 End: 05-21-2008 Patient encounter Zenaida Barksdale [facility] Start: 05-21-2008 End: 05-21-2008 Zenaida Barksdale DO Work Phone: [facility] Start: 11-21-2007 End: 11-21-2007 Office outpatient visit 15 minutes Zenaida Barksdale [facility] Start: 11-03-2007 End: 11-03-2007 Patient encounter Zenaida Barksdale [facility] Start: 11-03-2007 End: 11-03-2007 Zenaida Barksdale DO Work Phone: [facility] Start: 05-06-2007 End: 05-06-2007 Patient encounter Zenaida Barksdale [facility] Start: 05-06-2007 End: 05-06-2007 Zenaida Barksdale DO Work Phone: [facility] Start: 07-30-2006 End: 07-30-2006 Patient encounter Zenaida Barksdale [facility] Start: 07-30-2006 End: 07-30-2006 Zenaida Barksdale DO Work Phone: [facility] Physical examination Zenaida deo DO Work Phone: [facility]; [facility] Work Phone: End: 04-29-2018 Physical examination Tereza Jefferson RN [facility] Work Phone: Procedures Date Procedure Procedure Detail Performing Clinician Start: 10-10-2024 Digital breast tomosynthesis unilateral Danae [place] [employer]PER [employer]TER.SNOW REMOVAL/PLOWING Work Phone: Start: 10-10-2024 Us breast uni real time with image limited Danae [place] [employer]PER FITTER.SNOW REMOVAL/PLOWING Work Phone: Start: 03-03-2024 Echo tthrc r-t 2d w/wom-mode compl spec&colr d Sulaiman Whyte MD Work Phone: Start: 06-29-2023 STREP A MOLECULAR (POC) [facility] Provider Start: 01-15-2023 Echo tthrc r-t 2d w/wom-mode compl spec&colr d Sulaiman Whyte MD Work Phone: Start: 10-30-2022 End: 10-30-2022 Cardiology Visit Report Procedure Note: See Note; NOTES: [facility] [address] [place] [address] OFFICE VISIT Date of Service: 10/30/22 MR#: [id number] Acct: [id number] Name: JAZZ PETTY Rep #: [id number] : 1970 Provider: EN kennedy Age/Sex: 51/F Location: [facility] [place] Status: Signed HPI [facility] History of Present Illness Details: This is a 51-year-old white female who presents today for outpatient cardiovascular follow-up visit. She was previously consulted based upon concerns of palpitations/rapid heart rate, hypertension, and a transthoracic echocardiogram suggesting tricuspid valve regurgitation and pulmonary hypertension. She states that she underwent evaluation several years ago for concerns of palpitations and a rapid heart rate. It appears in 2012 she underwent a 24-hour Holter monitor which according to the report at that time demonstrated sinus rhythm with an occasional PSVC/PVC. She also had a transthoracic echocardiogram performed at that time. According to the report her left ventricle was normal with an LVEF of 65%, she had mild TR, and an estimated RV systolic pressure of 28 mmHg. She states she did well until November of 2021. At that time after eating a somewhat salt loaded meal and having "a couple of alcoholic beverages and then falling asleep she was awakened by her family. At that time, she noted her heart rate was going fast. She presented to the [facility] emergency department for further evaluation. At that time it appeared her symptoms had resolved. Her ECG demonstrated sinus rhythm with nonspecific ST-T segment change. She was subsequently referred to cardiology for outpatient cardiovascular follow-up. In the interim she did have a transthoracic echocardiogram performed. The results are noted below. It is noted that her left ventricle appeared to be hyperdynamic with an LVEF of 75% with mild to moderate TR and an estimated RV systolic pressure 51 mmHg appearing compatible with pulmonary hypertension. She does follow with pulmonology-Dr. Cooney, and is following with a Pulmonary HTN specialist at [facility]. From a cardiac standpoint, the patient is doing well. She denies any palpitations, chest pain, pressure or heaviness. She denies SOB, Orthopnea, and PND. She does not have bleeding issues; no blood in urine, stool or nosebleeds. She denies any decrease in energy level, myalgias, or claudication. She does not have edema, or sudden weight gain. She denies dizziness, lightheadedness, syncopal or near syncopal episodes, and headaches. She states that she does work out 4-7x a week and uses the elliptical for about 3-40minutes without any issues. Intake Vital Signs 05/01/22 08:25 10/30/22 08:42 Height 5 ft 5 in 5 ft 5 in Weight: 155 lb BMI 25.7 BP 133/81 H Blood Pressure Location Lt brachial Position Sitting Respiration 18 Pulse 82 Pulse Source Monitor Pulse Oximetry (%) 99 Oxygen Delivery Method room air Intake Visit Reasons: 6 M FU Allergies No Known Allergies Allergy (Verified 10/30/22 08:39) Medications levothyroxine 25 mcg tablet 25 mcg PO DAILY 12/07/21 [History Confirmed 10/30/22] ascorbic acid (vitamin C) 1,000 mg tablet 1 g PO DAILY 01/23/22 [History Confirmed 10/30/22] multivitamin 1 tab PO DAILY 01/23/22 [History Confirmed 10/30/22] ubidecarenone-omega 3-vit E 25 mg-150 (90-60) mg-200 unit capsule (Co F-20-Vjdpjnr E-Fish Oil) 1 cap PO DAILY 01/23/22 [History Confirmed 10/30/22] cholecalciferol (vitamin D3) 25 mcg (1,000 unit) tablet 25 mcg PO DAILY 01/29/22 [History Confirmed 10/30/22] rosuvastatin 10 mg tablet 10 mg PO .QOD 05/01/22 [History Confirmed 10/30/22] vitamin B complex (Complex B-100 tablet,extended release) 1 tab PO DAILY 05/01/22 [History Confirmed 10/30/22] cetirizine 10 mg tablet (Zyrtec) 10 mg PO DAILY PRN 10/30/22 [History Confirmed 10/30/22] lisinopril 5 mg tablet 10 mg PO DAILY 10/30/22 [History Confirmed 10/30/22] [facility] Medical History ADHD (attention deficit hyperactivity disorder) Essential hypertension Hypertension Hypothyroidism Non-rheumatic tricuspid valve insufficiency Palpitations Pulmonary hypertension Pure hypercholesterolemia Family History Grandmother Heart disease Hypothyroidism Mother Hypothyroidism Diabetes Congestive heart failure Father Cancer Lung Social History Smoking Status: Never smoker alcohol intake: current details: occasional substance use type: does not use caffeine: Yes Type: tea Number of servings: 1 ROS Const Const: Negative for fatigue, weakness, fever(s), headache(s), chills, frequent falls, weight gain or weight loss Eyes Eyes: Negative for blind spots, loss of peripheral vision, transient loss of vision, blurry vision, change in vision, double vision, floaters or tunnel vision ENT ENT: Negative for headache(s), dizziness, Nosebleed/epistaxis, balance problems or neck pain Cardio Chest Pain: No Palpitations: No Edema: None Muscle aches with walking: None Resp Respiratory: Negative for SOB with activity, SOB at rest or SOB orthopnea SOB lying down GI GI: Negative nausea, vomiting, heartburn, bloating, vomiting blood/hematemesis, bright, red blood in stools or black,tarry stools Musc Musc: Negative for muscle aches/ myalgia, muscle weakness, joint pain or balance problems Neuro Neuro: Negative for dizziness, lightheadedness, near syncope, syncope, orthostatic symptoms, frequent falls, headache(s), weakness, blurry vision or double vision Babak Hematologic/Lymphatic: Negative for easy bleeding or easy bruising Endo Endo: Negative for fatigue Cardiology Exam Const Appearance: cooperative, healthy appearing, comfortable, no acute distress and well developed Nutritional Appearance: average body habitus Orientation: alert, awake and oriented x3 Head Head: normal to inspection, normocephalic and atraumatic Ears: hearing grossly normal bilaterally Nose: external nose normal Face and Sinus: face symmetric Eyes Eyelids: eyelids normal Conjunctivae: conjunctivae normal Pupils: PERRL EOM: EOM intact bilaterally Neck Neck: normal visual inspection and full ROM Carotids: normal carotid upstroke Chest Chest inspection: normal inspection of the chest and normal respiratory effort Auscultation: Bilateral: Clear to Auscultation Cardio Palpation: normal PMI Rate: regular rate Rhythm: regular rhythm Heart sounds: S1 normal, S2 normal and murmur Murmur: Grade 2/6, soft, mid systolic, LLSB, LVOT and sternal notch Cardiac murmur: Increases status post inspiration GI GI: normal to inspection and soft Neuro General: patient alert, patient awake, patient oriented x3, gait normal and moves all extremities Skin Skin: no rashes or lesions noted Extremities Pulses: Normal: Right Posterior Tibial Pulse, Left Posterior Tibial Pulse, Right Radial Pulse and Left Radial Pulse Lower Extremity Edema: None: Bilateral Psych Psychological: normal affect Supplemental Info Supplemental Information Echocardiogram 09/21/2022: Interpretation Summary Normal LV size. Left ventricular systolic function is normal. The estimated ejection fraction is 65 %. Pulmonary artery systolic pressure is 52 mmHg. Stage 1 diastolic dysfunction. Transthoracic echocardiogram: 01-06-2022 Interpretation Summary Left ventricular systolic function is hyperdynamic. The estimated ejection fraction is 75 %. Trivial mitral valve insufficiency. Mild to moderate (1-2+) eccentric tricuspid valve insufficiency. Trivial pulmonic valve insufficiency. Right ventricular systolic pressure estimated to be 51 mmHg c/w pulmonary hypertension. Diastolic function is indeterminate. Labs: No Data to Display Diagnostics: Electrocardiogram Echocardiogram Chest X-Ray Pulmonary: No Data to Display Past Visits: Cardiology Visit 10/30/22 Assessment and Plan Assessment and Plan (1) Pulmonary hypertension: Status: Acute Comment: RVSP 51 mmHG per ECHO 01/06/22 Plan: Patient has a history of pulmonary hypertension. Her echocardiogram from 09/21/2022 demonstrated an ejection fraction of 65%, stage I diastolic dysfunction, and right ventricular systolic pressure estimated to be 52 mmHg c/w pulmonary hypertension. She appears stable at this time, and denies any recent symptoms or events. She tells me she is following with a pulmonary HTN specialist at [facility]. Her echocardiogram that was completed at [facility] earlier this year did not show elevated pulmonary pressures. She will continue to follow with him, and monitor for any concerning symptoms. (2) Palpitations: Status: Acute Plan: Patient has a history of palpitations. She denies any recent symptoms or events. At this time, she will continue to monitor for any concerning symptoms. (3) Pure hypercholesterolemia: Status: Acute Plan: Patient has a history of hypercholesterolemia. Her PCP monitors this. She will continue rosuvastatin 10mg every other day, along with aggressive risk factor and lifestyle modifications. A copy of her most recent lipid panel would be greatly appreciated for continuity of care. (4) Essential hypertension: Status: Acute Plan: Patient has a history of hypertension. Her blood pressure is well controlled at this time. She will continue lisinopril 10mg daily, along with monitoring her blood pressures at home. She will notify our office of any persistently elevated or low blood pressure readings. Medications: Changed From lisinopril 7.5 mg (1.5 x 5 mg) PO DAILY 135 tabs 3RF To lisinopril 10 mg PO DAILY Plan Details Additional Comments: Patient will follow up in 6 months, or sooner if needed. Thank you for allowing me to participate in the care of your patient. Please don't hesitate to call if any issues arise. This note was generated using a voice recognition system and there may be incorrect words, spelling, or punctuation that were not noted when reviewing the office note prior to saving. Portions of this documentation were copied and pasted from previous office visit notes to provide a cohesive continuity of the history. The note has been reviewed, edited, and updated, as necessary. Follow Up: Please obtain echocardiogram from [facility] 6 Months (CYANIDE FURNACE OPERATOR/PA) Coding Level of Care Code Off vis,est,level 3 Diagnoses Pulmonary hypertension I27.20 Palpitations R00.2 Pure hypercholesterolemia E78.00 Essential hypertension I10 Coding Level of Care Code Off vis,est,level 3 Diagnoses Pulmonary hypertension I27.20 Palpitations R00.2 Pure hypercholesterolemia E78.00 Essential hypertension I10 10/30/22 1120 <Electronically signed by Tereza Madsen NP CYANIDE FURNACE OPERATOR-C> Date Tereza Madsen NP CYANIDE FURNACE OPERATOR-C Cosigner Signature: Date (if applicable) CC: Zenaida Barksdale DO Work Phone: Start: 09-21-2022 End: 09-21-2022 Echo Complete Procedure Note: See Note; NOTES: [facility] [address] [place] [address] Echo Complete 09/21/22 1408 MR#: [id number] Acct: [id number] Name: JAZZ PETTY Rep #: [id number] : 1970 51 From: Ricardo Mccallum MD Attending Dr: Dr. Maggie Cooney MD Status: REG CLI Ordering Dr: Maggie Cooney MD Date: 09/21/22 Location: [facility] Sex: F C Admitted: Reason For Study: PHTN Procedure This was a 2D Doppler, Color Flow transthoracic echocardiogram. Exam performed in department. Left Ventricle Normal LV size. Left ventricular systolic function is normal. The estimated ejection fraction is 65 %. Stage 1 diastolic dysfunction. No regional wall motion abnormalities noted. Right Ventricle Normal RV size. Normal systolic function. Atria Normal left atrium. Normal right atrium. Mitral Valve Normal mitral valve. Tricuspid Valve Normal tricuspid valve. Mild (1+) tricuspid valve insufficiency. Pulmonary artery systolic pressure is 52 mmHg. Aortic Valve Trisinus/trileaflet aortic valve. Pulmonic Valve Normal pulmonic valve. Great Vessels Normal aortic root. Pericardium/Pleural No pericardial effusion. MMode/2D Measurements Calculations LVIDd: 3.8 cm IVSd: 0.87 cm LAV(MOD-bp): 47.6 ml LVIDs: 2.1 cm LVPWd: 0.84 cm LAV(MOD-bp) Indexed: 26.8 ml/m2 RVDd: 3.2 cm FS: 45.4 % LAV(MOD-sp2): 53.0 ml LAV(MOD-sp4): 41.3 ml SV(MOD-sp4): 34.4 ml SV(sp4-el): 37.4 ml LVAd ap4: 20.0 cm2 LVLd ap4: 7.3 cm EDV(MOD-sp4): 44.1 ml EDV(sp4-el): 46.8 ml LVAs ap4: 7.7 cm2 LVLs ap4: 5.3 cm ESV(MOD-sp4): 9.6 ml ESV(sp4-el): 9.4 ml EF(MOD-sp4): 78.1 % EF(sp4-el): 79.8 % LA A4 area: 16.8 cm2 RA A4 area: 17.3 cm2 Time Measurements MV dec time: 0.16 sec Doppler Measurements Calculations MV E max maribell: 106.8 cm/sec Lat Peak E' Maribell: 18.5 cm/sec Med Peak E' Maribell: 14.0 cm/sec MV A max maribell: 86.9 cm/sec E/E' lat: 5.8 E/E' med: 7.6 MV E/A: 1.2 MV V2 max: 106.9 cm/sec MV dec slope: 663.7 cm/sec2 PA V2 max: 148.8 cm/sec MV max P.6 mmHg PA V2 mean: 111.5 cm/sec MV V2 mean: 64.9 cm/sec MV mean P.9 mmHg MV V2 VTI: 26.2 cm TR max maribell: 346.6 cm/sec TR max P.0 mmHg ECHO/Echo Complete Interpretation Summary Normal LV size. Left ventricular systolic function is normal. The estimated ejection fraction is 65 %. Pulmonary artery systolic pressure is 52 mmHg. Stage 1 diastolic dysfunction. Ordering Physician: Maggie Cooney V Referring Physician: Maggie Cooney V Performed By: Mackenzie Chatman RCS 09/21/22 1523 Date Ricardo Mccallum MD CC: Dr. Zenaida Barksdale, DO; Dr. Maggie Cooney MD Date Dictated: 09/21/22 1408 Date Transcribed: 09/21/22 152 Foot Worker: Signed Maggie Cooney Work Phone: Start: 08-21-2022 End: 08-21-2022 Mammography Sommer Matthew MD Work Phone: Start: 07-10-2022 Echo tthrc r-t 2d w/wom-mode compl spec&colr d Sulaiman Whyte MD Work Phone: Start: 05-01-2022 End: 05-01-2022 Cardiology Visit Report Procedure Note: See Note; NOTES: [facility] [address] [place], [place] [id number] OFFICE VISIT Date of Service: 05/01/22 MR#: [id number] Acct: [id number] Name: JAZZ PETTY Rep #: [id number] : 1970 Provider: CYANIDE FURNACE OPERATOR-C Tereza Robe rts Age/Sex: 51/F Location: [facility] Status: Signed [facility] History of Present Illness Details: This is a 51-year-old white female who presents today for outpatient cardiovascular follow-up visit. She was previously consulted based upon concerns of palpitations/rapid heart rate, hypertension, and a transthoracic echocardiogram suggesting tricuspid valve regurgitation and pulmonary hypertension. She states that she underwent evaluation several years ago for concerns of palpitations and a rapid heart rate. It appears in 2012 she underwent a 24-hour Holter monitor which according to the report at that time demonstrated sinus rhythm with an occasional PSVC/PVC. She also had a transthoracic echocardiogram performed at that time. According to the report her left ventricle was normal with an LVEF of 65%, she had mild TR, and an estimated RV systolic pressure of 28 mmHg. She states she did well until November of this year. At that time after eating a somewhat salt loaded meal and having a couple of alcoholic beverages "and then falling asleep she was awakened by her family. She notes then she noted her heart rate going fast. She presented to the [facility] emergency department for further evaluation. At that time it appeared her symptoms had resolved. Her ECG demonstrated sinus rhythm with nonspecific ST-T segment change. She was subsequently referred to cardiology for outpatient cardiovascular follow-up. In the interim she did have a transthoracic echocardiogram performed. The results are noted below. It is noted that her left ventricle appeared to be hyperdynamic with an LVEF of 75% with mild to moderate TR and an estimated RV systolic pressure 51 mmHg appearing compatible with pulmonary hypertension. Her ECG in the office on 01/29/2022 was noted to have a nonspecific ST segment change. In comparison to her previous ECG from 12-07-2021 there appear to be no significant change. Of note, to the best of her knowledge, she has never had any primary pulmonary disease process. She does not recall any secondary pulmonary disease process. She does not recall any history of thromboembolic events such as pulmonary emboli. She does follow with pulmonology-Dr. Cooney. She states that he is having her repeat an echocardiogram in June-September. She does states she has had a cardiac murmur. She believes she has noted to been present since the age of 20. From a cardiac standpoint, the patient is doing well. She denies any palpitations, chest pain, pressure or heaviness. She denies SOB, Orthopnea, and PND. She does not have bleeding issues; no blood in urine, stool or nosebleeds. She denies any decrease in energy level, myalgias, or claudication. She does not have edema, or sudden weight gain. She denies dizziness, lightheadedness, syncopal or near syncopal episodes, and headaches. She did not obtain the stress test that was previously ordered due to financial reasons. She states that she does work out 4-7x a week and uses the elliptical for about 3-40minutes without any issues. Intake Vital Signs 01/29/22 13:32 05/01/22 08:25 Height 5 ft 5 in 5 ft 5 in Weight: 156 lb BMI 25.9 BP 117/79 Blood Pressure Location Lt brachial Position Sitting Respiration 16 Pulse 71 Pulse Source Auscultation Intake Visit Reasons: 3 M FU Technical Solutions Director Required: No Accompanied by: Self Is patient in pain?: No Allergies No Known Allergies Allergy (Verified 05/01/22 08:51) Medications levothyroxine 25 mcg tablet 25 mcg PO DAILY 12/07/21 [History Confirmed 05/01/22] ascorbic acid (vitamin C) 1,000 mg tablet 1 g PO DAILY 01/23/22 [History Confirmed 05/01/22] multivitamin 1 tab PO DAILY 01/23/22 [History Confirmed 05/01/22] ubidecarenone-omega 3-vit E 25 mg-150 (90-60) mg-200 unit capsule (Co D-54-Mnocpfc E-Fish Oil) 1 cap PO DAILY 01/23/22 [History Confirmed 05/01/22] cholecalciferol (vitamin D3) 25 mcg (1,000 unit) tablet 25 mcg PO DAILY 01/29/22 [History Confirmed 05/01/22] lisinopril 5 mg tablet 7.5 mg PO DAILY #135 tabs 05/01/22 [Rx Confirmed 05/01/22] rosuvastatin 10 mg tablet 10 mg PO .QOD 05/01/22 [History Confirmed 05/01/22] vitamin B complex (Complex B-100 tablet,extended release) 1 tab PO DAILY 05/01/22 [History Confirmed 05/01/22] Ejection fraction %: 65 to 70 [facility] Medical History ADHD (attention deficit hyperactivity disorder) Essential hypertension Hypertension Hypothyroidism Non-rheumatic tricuspid valve insufficiency Palpitations Pulmonary hypertension Pure hypercholesterolemia Family History Grandmother Heart disease Hypothyroidism Mother Hypothyroidism Diabetes Congestive heart failure Father Cancer Lung Social History Smoking Status: Never smoker alcohol intake: current details: occasional substance use type: does not use caffeine: Yes Type: tea Number of servings: 1 ROS Const Const: Negative for fatigue, weakness, headache(s), frequent falls, difficulty sleeping or excessive sweating Eyes Eyes: Negative for loss of peripheral vision, transient loss of vision, blurry vision, double vision or tunnel vision ENT ENT: Negative for headache(s), dizziness, Nosebleed/epistaxis or balance problems Cardio Chest Pain: No Palpitations: No Edema: None Muscle aches with walking: None Resp Respiratory: Negative for SOB with activity, SOB at rest, SOB orthopnea SOB lying down, Cough or paroxysmal nocturnal dyspnea GI GI: Negative nausea, vomiting, heartburn or black,tarry stools : Negative for hematuria Musc Musc: Positive for joint pain (feet/toes hurting); Negative for muscle aches/ myalgia, muscle weakness or balance problems Skin Skin: Negative non-healing lesions, rash or unusual bruising Neuro Neuro: Negative for dizziness, lightheadedness, near syncope, syncope, frequent falls, headache(s), weakness, blurry vision, double vision or lack of coordination Babak Hematologic/Lymphatic: Negative for easy bleeding or easy bruising Endo Endo: Negative for fatigue, excessive sweating or increased thirst/drinking Psych Psych: Negative for anxiety or depression Allergy Allergy/Immunology: Negative for hives and Negative for rash Cardiology Exam Const Appearance: cooperative, healthy appearing, comfortable, no acute distress and well developed Nutritional Appearance: average body habitus Orientation: alert, awake and oriented x3 Head Head: normal to inspection, normocephalic and atraumatic Ears: hearing grossly normal bilaterally Nose: external nose normal Face and Sinus: face symmetric Eyes Eyelids: eyelids normal Conjunctivae: conjunctivae normal Pupils: PERRL EOM: EOM intact bilaterally Neck Neck: normal visual inspection and full ROM Carotids: normal carotid upstroke Chest Chest inspection: normal inspection of the chest and normal respiratory effort Auscultation: Bilateral: Clear to Auscultation Cardio Palpation: normal PMI Rate: regular rate Rhythm: regular rhythm Heart sounds: S1 normal, S2 normal and murmur Murmur: Grade 2/6, soft, mid systolic, LLSB, LVOT and sternal notch Cardiac murmur: Increases status post inspiration GI GI: normal to inspection, soft and bowel sounds present Neuro General: patient alert, patient awake, patient oriented x3, gait normal and moves all extremities Skin Skin: no rashes or lesions noted Extremities Pulses: Normal: Right Posterior Tibial Pulse, Left Posterior Tibial Pulse, Right Radial Pulse and Left Radial Pulse Lower Extremity Edema: None: Bilateral Psych Psychological: normal affect Supplemental Info Supplemental Information Transthoracic echocardiogram: 01-06-2022 Interpretation Summary Left ventricular systolic function is hyperdynamic. The estimated ejection fraction is 75 %. Trivial mitral valve insufficiency. Mild to moderate (1-2+) eccentric tricuspid valve insufficiency. Trivial pulmonic valve insufficiency. Right ventricular systolic pressure estimated to be 51 mmHg c/w pulmonary hypertension. Diastolic function is indeterminate. Labs: LDL Cholesterol 120 mg/dL (0-130) HDL Cholesterol 59 mg/dL (40-) Triglycerides 163 mg/dL (0-199) VLDL Cholesterol 33 mg/dL (5-40) Diagnostics: Electrocardiogram Echocardiogram Chest X-Ray Pulmonary: No Data to Display Assessment and Plan Assessment and Plan (1) Palpitations: Status: Acute Plan: Patient has a history of palpitations. She denies any recent symptoms or events. At this time, she will continue to monitor for any concerning symptoms. (2) Non-rheumatic tricuspid valve insufficiency: Status: Acute Comment: mild-mod per ECHO 01/06/22 Plan: Patient has a history of non-rheumatic tricuspid valve insufficiency. Her most recent echocardiogram from 01/06/2022 demonstrated mild to moderate (1-2+) eccentric tricuspid valve insufficiency, trivial pulmonic valve insufficiency, and right ventricular systolic pressure estimated to be 51 mmHg c/w pulmonary hypertension. This does not appear to have had negative impact on her atrial size or her right ventricular size and function. We will continue to monitor this with history, exam, and echocardiograms as deemed appropriate. (3) Pulmonary hypertension: Status: Acute Comment: RVSP 51 mmHG per ECHO 01/06/22 Plan: Patient has a history of pulmonary hypertension. Her most recent echocardiogram demonstrated right ventricular systolic pressure estimated to be 51 mmHg c/w pulmonary hypertension. The etiology for this is unclear at this time as she does not appear to have evidence of LV systolic dysfunction, mitral valve disease, or definitive evidence of diastolic dysfunction that would lead to such a finding. She will continue to follow with pulmonology for this. She states that Dr. Cooney has ordered an echocardiogram to be completed in the upcoming months. We will await those results. (4) Pure hypercholesterolemia: Status: Acute Plan: Patient has a history of hypercholesterolemia. Her PCP monitors this. She will continue rosuvastatin 10mg every other day, along with aggressive risk factor and lifestyle modifications. (5) Essential hypertension: Status: Acute Plan: Patient has a history of hypertension. Her blood pressure is well controlled at this time. She states that she discontinued her nifedipine, and is currently taking lisinopril 7.5mg daily. She w ill continue to monitor her blood pressures at home, and notify our office of any persistently elevated blood pressure readings. Medications: New lisinopril 7.5 mg (1.5 x 5 mg) PO DAILY 135 tabs 3RF Plan Details Additional Comments: Patient will follow up in 6 months, or sooner if needed. Thank you for allowing me to participate in the care of your patient. Please don't hesitate to call if any issues arise. This note was generated using a voice recognition system and there may be incorrect words, spelling, or punctuation that were not noted when reviewing the office note prior to saving. Portions of this documentation were copied and pasted from previous office visit notes to provide a cohesive continuity of the history. The note has been reviewed, edited, and updated, as necessary. Follow Up: 6 Months (CYANIDE FURNACE OPERATOR/PA) 12 Months (PFM) Coding Level of Care Code Off vis,est,level 4 Diagnoses Palpitations R00.2 Non-rheumatic tricuspid valve insufficiency I36.1 Pulmonary hypertension I27.20 Pure hypercholesterolemia E78.00 Essential hypertension I10 Coding Level of Care Code Off vis,est,level 4 Diagnoses Palpitations R00.2 Non-rheumatic tricuspid valve insufficiency I36.1 Pulmonary hypertension I27.20 Pure hypercholesterolemia E78.00 Essential hypertension I10 05/01/22 0939 <Electronically signed by Tereza Madsen NP CYANIDE FURNACE OPERATOR-C> Date Tereza Madsen NP CYANIDE FURNACE OPERATOR-C Cosigner Signature: Date (if applicable) CC: DO Zenaida Chavez DO Work Phone: Start: 02-06-2022 End: 02-06-2022 Chest PA and Lateral Procedure Note: See Note; NOTES: [facility] Imaging Services [address] [place] [id number] Chest PA and Lateral MR#: [id number] Acct: [id number] Name: JAZZ PETTY Rep #: [id number] : 1970 F 51 From: Rick Kim MD PCP: Dr. Zenaida Barksdale DO Status: REG CLI Study: Chest PA and Lateral Date of Exam: 02/06/22 Exam# [id number] Ordering Dr: Hussein De León MD STUDY: X-RAY CHEST REASON FOR EXAM: Female, 51 years old. Pulmonary HTN TECHNIQUE: PA and lateral views of the chest. COMPARISON: 2018 FINDINGS: The lungs are clear and expanded. There is no demonstrated pleural abnormality. Normal size heart. Normal mediastinum and марина. Normal visualized pulmonary arteries. Normal visualized aortic arch and descending thoracic aorta. Normal visualized thoracic spine. Normal visualized ribs, clavicles, and shoulders. There is no demonstrated abnormality of the visualized soft tissue structures of the upper abdomen. RAD/Chest PA and Lateral IMPRESSION: Normal x-ray examination of the chest. Electronically Signed: Neville Kim MD at 9:26 EDT , CC: Dr. Zenaida Barksdale DO; Dr. Hussein De León MD Foot Worker: Signed Hussein De León MD Work Phone: Start: 02-06-2022 Plain chest X-ray Dr. Zenaida Barksdale Work Phone: Start: 01-29-2022 End: 01-29-2022 12 Lead EKG performed by BMS Procedure Note: See Note; NOTES: [id number] [place] [address] 12 Lead EKG performed by BMS 01/29/221326 MR#: [id number] Acct: [id number] Name: JAZZ PETTY Rep #: [id number] : 1970 51 From: Hussein De León MD Attending Dr: Dr. Hussein De León MD Status: DE P AMB Ordering Dr: Hussein De León MD Date: 01/29/22 Location: [facility] [place] Sex: F C Admitted: BMS/12 Lead EKG performed by BMS ECG Report Interpretation Sin us Rhythm Nonspecific ST depression ABNORMAL Electronically signed on 01/29/2022 at 15:06 by Hussein De León Software Version [id number] 01/29/22 1510 Date Hussein De León MD CC: Dr. Zenaida Barksdale DO Date Dictated: 01/29/221326 Date Transcribed: 01/29/221326 Foot Worker: PM Signed Hussein De León MD Work Phone: Start: 01-29-2022 End: 01-29-2022 Cardiology Visit Report Procedure Note: See Note; NOTES: [facility] [address] [place] [address] OFFICE VISIT Date of Service: 01/29/22 MR#: [id number] Acct: [id number] Name: JAZZ PETTY Rep #: [id number] : 1970 Provider: Dr. Hussein mckeon MD Age/Sex: 51/F Location: [facility] [place] Status: Signed HPI [facility] History of Present Illness Details: This is a 51-year-old white female who presents today for outpatient cardiovascular consultation based upon concerns of palpitations/rapid heart rate, hypertension, and a transthoracic echocardiogram suggesting tricuspid valve regurgitation and pulmonary hypertension. She states that she underwent evaluation several years ago for concerns of palpitations and a rapid heart rate. It appears in 2012 she underwent a 24-hour Holter monitor which according to the report at that time demonstrated sinus rhythm with an occasional PSVC/PVC. She also had a transthoracic echocardiogram performed at that time. According to the report her left ventricle was normal with an LVEF of 65%, she had mild TR, and an estimated RV systolic pressure of 28 mmHg. She states she did well until November of this year. At that time after eating a somewhat salt loaded meal and having a couple of alcoholic beverages "and then falling asleep she was awakened by her family. She notes then she noted her heart rate going fast. She presented to the [facility] emergency department for further evaluation. At that time it appeared her symptoms had resolved. Her ECG demonstrated sinus rhythm with nonspecific ST-T segment change. She was subsequently referred to cardiology for outpatient cardiovascular follow-up. In the interim she did have a transthoracic echocardiogram performed. The results are noted below. It is noted that her left ventricle appeared to be hyperdynamic with an LVEF of 75% with mild to moderate TR and an estimated RV systolic pressure 51 mmHg appearing compatible with pulmonary hypertension. She notes based upon that her medications were adjusted. She states her lisinopril was discontinued. She was placed on nifedipine XL 30 mg a day. She notes that on the medication change her blood pressure has been higher and she has not felt as well. She states she has noted headaches which she is not sure whether it is related to her blood pressure being higher or the new medication. She did bring her blood pressure cuff with her today. It was correlated with the office blood pressure cuff. Her systolic and diastolic blood pressures on her cuff were higher than the office cuff pressures. She states that she is very active. She works out on her elliptical type device multiple times per week for 30 to 40 minutes at a time. She brings her heart rate up to 120 bpm to 140 bpm. She has not noted any obvious additional heart rate elevations. There is been no near-syncope or syncope in her history. She does not note any resting or exercise related chest discomforts or difficulty breathing. In the office today she had sinus rhythm on her ECG. She was noted to have a nonspecific ST segment change. In comparison to her previous ECG from 12-07-2021 there appear to be no significant change. She has not had any further radiologic follow-up. She states she is due to see Dr. Cooney of pulmonology, who evaluated her in the remote past, based upon concerns of the potential of pulmonary hypertension. Of note, to the best of her knowledge, she has never had any primary pulmonary disease process. She does not recall any secondary pulmonary disease process. She does not recall any history of thromboembolic events such as pulmonary emboli. She does states she has had a cardiac murmur. She believes she has noted to been present since the age of 20. Intake Vital Signs 12/06/21 23:50 01/23/22 21:59 01/29/22 13:27 01/29/22 13:32 Height 5 ft 5 in 5 ft 5 in 5 ft 5 in 5 ft 5 in Weight: 155 lb 2 oz BMI 25.8 BP 148/80 H Blood Pressure Location Lt brachial Position Sitting Respiration 16 Pulse 88 Pulse Source Auscultation Intake Visit Reasons: RACING HB/REF. [employer] Director Required: No Accompanied by: Self Allergies No Known Allergies Allergy (Verified 01/29/22 13:32) Medications levothyroxine 25 mcg tablet 25 mcg PO DAILY 12/07/21 [History Confirmed 01/29/22] ascorbic acid (vitamin C) 1,000 mg tablet 1 g PO DAILY 01/23/22 [History Confirmed 01/29/22] multivitamin 1 tab PO DAILY 01/23/22 [History Confirmed 01/29/22] nifedipine 30 mg tablet,extended release 30 mg PO DAILY 01/23/22 [History Confirmed 01/29/22] rosuvastatin 10 mg tablet 10 mg PO QHS 01/23/22 [History Confirmed 01/29/22] ubidecarenone-omega 3-vit E 25 mg-150 (90-60) mg-200 unit capsule (Co C-41-Vtiehky E-Fish Oil) 1 cap PO DAILY 01/23/22 [History Confirmed 01/29/22] vitamin B complex (Complex B-100 tablet,extended release) 1 tab PO Q OTHER DAY 01/23/22 [History Confirmed 01/29/22] cholecalciferol (vitamin D3) 25 mcg (1,000 unit) tablet 25 mcg PO DAILY 01/29/22 [History Confirmed 01/29/22] lisinopril 5 mg tablet 5 mg PO DAILY #1 TAB 01/29/22 [Rx Confirmed 01/29/22] PFSH Medical History ADHD (attention deficit hyperactivity disorder) Essential hypertension Hypertension Hypothyroidism Non-rheumatic tricuspid valve insufficiency Palpitations Pulmonary hypertension Pure hypercholesterolemia Family History Grandmother Heart disease Hypothyroidism Mother Hypothyroidism Diabetes Congestive heart failure Father Cancer Lung Social History Smoking Status: Never smoker alcohol intake: current details: occasional substance use type: does not use caffeine: Yes ROS Const Const: Negative for fatigue, weakness, body ache, fever(s), headache(s), chills, frequent falls, night sweats, daytime sleepiness, difficulty sleeping, excessive sweating, weight gain, weight loss, increased appetite, poor appetite, anorexia or other Eyes Eyes: Negative for blurry vision or double vision ENT ENT: Positive for balance problems (occasional); Negative for headache(s) or dizziness Cardio Chest Pain: No Palpitations: Yes (rare) feels like its: fast Edema: None Muscle aches with walking: None Resp Respiratory: Negative for SOB with activity, SOB at rest, SOB orthopnea SOB lying down, Cough, Coughing up blood/hemoptysis, chest congestion, pain on inspiration, snoring, stridor, wheezing, crackles, paroxysmal nocturnal dyspnea or other Musc Musc: Positive for balance problems (occasional); Negative for muscle aches/ myalgia, muscle weakness or joint pain Neuro Neuro: Negative for dizziness, lightheadedness, near syncope, syncope, orthostatic symptoms, frequent falls, headache(s), weakness, confusion, memory loss, restless legs, blurry vision, double vision, vertigo, seizures, lack of coordination or other Endo Endo: Negative for fatigue or excessive sweating Cardiology Exam Const Appearance: cooperative, healthy appearing, comfortable, no acute distress and well developed Nutritional Appearance: average body habitus Orientation: alert, awake and oriented x3 Head Head: normal to inspection, normocephalic and atraumatic Ears: hearing grossly normal bilaterally Nose: external nose normal Face and Sinus: face symmetric Eyes Eyelids: eyelids normal Conjunctivae: conjunctivae normal Pupils: PERRL EOM: EOM intact bilaterally Neck Neck: normal visual inspection and full ROM Carotids: normal carotid upstroke Chest Chest inspection: normal inspection of the chest and normal respiratory effort Auscultation: Bilateral: Clear to Auscultation Cardio Palpation: normal PMI Rate: regular rate Rhythm: regular rhythm Heart sounds: S1 normal, S2 normal and murmur Murmur: Grade 2/6, soft, mid systolic, LLSB, LVOT and sternal notch Cardiac murmur: Increases status post inspiration GI GI: normal to inspection, soft and bowel sounds present Neuro General: patient alert, patient awake, patient oriented x3, gait normal and moves all extremities Skin Skin: no rashes or lesions noted Extremities Pulses: Normal: Right Femoral Pulse, Left Femoral Pulse, Right Dorsalis Pedis Pulse, Left Dorsalis Pedis Pulse, Right Posterior Tibial Pulse, Left Posterior Tibial Pulse, Right Radial Pulse and Left Radial Pulse Lower Extremity Edema: None: Bilateral Psych Psychological: normal affect Supplemental Info Supplemental Information Transthoracic echocardiogram: 01-06-2022 Interpretation Summary Left ventricular systolic function is hyperdynamic. The estimated ejection fraction is 75 %. Trivial mitral valve insufficiency. Mild to moderate (1-2+) eccentric tricuspid valve insufficiency. Trivial pulmonic valve insufficiency. Right ventricular systolic pressure estimated to be 51 mmHg c/w pulmonary hypertension. Diastolic function is indeterminate. Labs: LDL Cholesterol 120 mg/dL (0-130) HDL Cholesterol 59 mg/dL (40-) Triglycerides 163 mg/dL (0-199) VLDL Cholesterol 33 mg/dL (5-40) Diagnostics: Electrocardiogram Echocardiogram Chest X-Ray Pulmonary: No Data to Display Assessment and Plan Assessment and Plan (1) Palpitations: Status: Acute Plan: At the present time it is unclear as to the exact etiology of her 2 separate episodes of her elevated heart rates. She noted they were relatively brief. She had no adverse sequela I from them. These episodes occurred years apart. It is also been over a month since her last episode. At the present time it appears it may be challenging to capture one of her episodes using a Holter monitor or even a 30-day ambulatory event recorder. Thus, she was asked to monitor for any recurrent events. If her proceeds with recurrent events then it may be reasonable to proceed with additional ambulatory monitoring. If she is not a candidate for ambulatory monitoring based upon her events being rare and there is still concern of underlying rhythm related issues then she may need to be considered for an implantable loop recorder. In the interim she will be asked to have a treadmill stress test to assess for any obvious cardiac dysrhythmias that could be brought out under exercise. (2) Non-rheumatic tricuspid valve insufficiency: Status: Acute Comment: mild-mod per ECHO 01/06/22 Plan: She does have an element of tricuspid valve regurgitation. It appears she has not had this noted in 2013 as well. At the moment it does not appear to be severe or critical. It does not appear to have had negative impact on her atrial size or her right ventricular size and function. This will need to be followed over time by history and exam and echocardiographic studies. (3) Pulmonary hypertension: Status: Acute Comment: RVSP 51 mmHG per ECHO 01/06/22 Plan: Her most recent echocardiogram suggest elevated right-sided pressures compatible with pulmonary hypertension. The etiology for this is unclear at this time as she does not appear to have evidence of LV systolic dysfunction, mitral valve disease, or definitive evidence of diastolic dysfunction that would lead to such a finding. Thus it is reasonable that she be evaluated by pulmonology for any other obvious pulmonary etiologies that would lead to this finding. In the interim she will be asked to have a chest x-ray performed. Depending upon her clinical course over time it would be reasonable to repeat her echocardiogram in the future to reassess her right-sided pressures for dynamic changes. (4) Pure hypercholesterolemia: Status: Acute Plan: She should continue lipid-lowering therapy with follow-up with her PCP as deemed appropriate. (5) Essential hypertension: Status: Acute Plan: Her blood pressure is noted to be somewhat elevated. She does not believe the calcium channel antagonist is controlling her blood pressure as well as her JOSÉ inhibitor did. At the moment she will be asked to reinitiate her JOSÉ zcargkkug-wzkuaozjci-an 5 mg p.o. daily as she states this worked well for her in the past. She will continue her calcium channel antagonist therapy which was initiated based upon concerns of elevated right-sided pressures. She will monitor her blood pressures at home as well as her symptoms. Over time her medicines may need to be adjusted. Orders: Orders 12 Lead EKG performed by BMS Today R00.2 - Palpitations Stress Test Regular Today E78.00 - Pure hypercholesterolemia, unspecified, I10 - Essential (primary) hypertension, I27.20 - Pulmonary hypertension, unspecified, I36.1 - Nonrheumatic tricuspid (valve) insufficiency, R00.2 - Palpitations Chest PA and Lateral Today E78.00 - Pure hypercholesterolemia, unspecified, I10 - Essential (primary) hypertension, I27.20 - Pulmonary hypertension, unspecified, I36.1 - Nonrheumatic tricuspid (valve) insufficiency, R00.2 - Palpitations Medications: New lisinopril 5 mg PO DAILY 1 TAB 0RF Plan Details Additional Comments: She will be asked to have future outpatient cardiovascular follow-up. She will continue to follow with Dr. Cooney of pulmonology. She will continue to follow with Dr. Barksdale as her PCP. The above was discussed with her and she was agreeable to this approach. Thank you for allowing me to participate in the care of your patient. Please don't hesitate to call if any issues arise. This note was generated using a voice recognition system and there may be incorrect words, spelling or punctuation that were not noted when reviewing the office note prior to saving. Follow Up: 3 Months (PFM ) COVID (Procedure Consent) Procedure Criteria Procedure Criteria: Yes Elective The surgeon/proceduralist and patient have discussed in detail the risk of exposure to and/or potential harm posed by the COVID-19 virus with having a surgery/procedure at this time versus the risk of??? delaying the surgery/procedure. It is not possible to know either the risk of delaying the surgery or procedure or chance of getting an infection with perfect accuracy, but a joint decision was made between the patient and the surgeon/proceduralist ???to proceed at this time with the scheduled surgery/procedure as indicated on the consent form. Coding Level of Care Code Off vis,new,level 4 Diagnoses Palpitations R00.2 Non-rheumatic tricuspid valve insufficiency I36.1 Pulmonary hypertension I27.20 Pure hypercholesterolemia E78.00 Essential hypertension I10 Coding Level of Care Code Off vis,new,level 4 Diagnoses Palpitations R00.2 Non-rheumatic tricuspid valve insufficiency I36.1 Pulmonary hypertension I27.20 Pure hypercholesterolemia E78.00 Essential hypertension I10 01/29/22 1502 <Electronically signed by Hussein De León MD> Date Hussein De León MD Cosigner Signature: Date (if applicable) CC: Dr. Zenaida Barksdale DO; MD Zenaida Best DO Work Phone: Start: 01-23-2022 End: 01-23-2022 Emergency Department Summary Procedure Note: See Note; NOTES: [facility] Medical Records Department [address] [place] [address] Emergency Department Summary 01/23/22 MR#: [id number] Acct: [id number] Name: JAZZ PETTY Rep #: [id number] : 1970 51 From: Zackery Coleman MD PCP: Dr. Zenaida Barksdale DO Status:REG ER Location: ED HPI History of Present Illness Chief Complaint: Hypertension Informant: patient, spouse/S.O. and family Narrative Narrative: Patient had a switch from lisinopril at a low dose to nifedipine 30 mg a day just about a week ago. Since then her blood pressures have been running higher. She was checking them this evening and they were running up to the upper 160s systolic. She is not really having headache or visual changes. Sometimes she feels flushed when she takes the nifedipine but this was not occurring with the elevated blood pressures. The reason for the blood pressure switch was there is some question of some early pulmonary hypertension on an echo. She actually has follow-up with cardiology this . They note that their blood pressure machine was bought [id number]. It is about 3 years old. They read the instructions and it is not supposed to be kept in a humid area and has been kept in the bathroom and they are wondering if the machine is not working. They read the instructions and it is not supposed to be kept in a humid area and has been kept in the bathroom and they are wondering if the machine is not working. Since arriving here the patient's blood pressure has generally been 130s systolic. [facility] Medical History ADHD (attention deficit hyperactivity disorder) Essential hypertension Hypertension Hypothyroidism Non-rheumatic tricuspid valve insufficiency Pulmonary hypertension Pure hypercholesterolemia Home Medications levothyroxine 25 mcg tablet 25 mcg PO DAILY 12/07/21 [History Last Taken Unknown] ascorbic acid (vitamin C) 1,000 mg tablet 1 g PO DAILY 01/23/22 [History Last Taken Unknown] multivitamin 1 tab PO DAILY 01/23/22 [History Last Taken Unknown] nifedipine 30 mg tablet,extended release 30 mg PO DAILY 01/23/22 [History Last Taken Unknown] rosuvastatin 10 mg tablet 10 mg PO QHS 01/23/22 [History Last Taken Unknown] ubidecarenone-omega 3-vit E 25 mg-150 (90-60) mg-200 unit capsule (Co R-24-Owifpgk E-Fish Oil) 1 cap PO DAILY 01/23/22 [History Last Taken Unknown] vitamin B complex (Complex B-100 tablet,extended release) 1 tab PO Q OTHER DAY 01/23/22 [History Last Taken Unknown] Allergy/AdvReac Type Severity Reaction Status Date / Time No Known Allergies Allergy Verified 12/06/21 23:50 Family History Grandmother Heart disease Hypothyroidism Mother Hypothyroidism Diabetes Congestive heart failure Father Cancer Lung Social History Smoking Status: Never smoker alcohol intake: current details: occasional substance use type: does not use caffeine: Yes EXAM Physical Exam Const Vital Signs: 01/23/22 21:59 01/23/22 21:59 01/23/22 22:12 Temperature 97.6 F L 97.6 F L Temperature Source Temporal Temporal Pulse Rate 78 78 Respiratory Rate 16 16 Respiratory Pattern Normal Blood Pressure 151/81 H 151/81 H Blood Pressure Mean 104 104 Pulse Ox 97 97 Oxygen Delivery Method Room Air Room Air 01/23/22 22:12 01/23/22 22:56 Temperature Temperature Source Pulse Rate Respiratory Rate Respiratory Pattern Blood Pressure 141/94 H 131/81 H Blood Pressure Mean 109 97 Pulse Ox Oxygen Delivery Method Room Air Room Air Positive well nourished and well developed General Appearance ED: well developed and NAD; Negative for cyanotic, diaphoretic or pallor Eyes General Eye ED: Negative for scleral icterus Neck supple Resp normal respiratory effort and clear to auscultation bilaterally Cardio regular rate and regular rhythm Rate: Negative for bradycardia or tachycardic GI normal to inspection, nondistended, normoactive bowel sounds and non-tender Back/Spine no CVA tenderness Extremity normal to inspection General Extremety ED: Negative for edema or tenderness General Extremity: Negative for edema Neuro Sensorium / Orientation: alert Psych mental status grossly normal Skin General Skin Exam: Negative for pallor MDM MDM MDM Narrative Medical decision making narrative: Patient has multiple blood pressure checks here that are much more normal. She is not concerned about blood pressures in the 130s. I do not think we need to alter her therapy at this point. There is a question if her machine is working accurately at home. They will see if they can have this checked at her follow-up visit to see if it correlates directly with the cardiology blood pressure cuff. We will not change her meds at this point. She just had blood work done that I can see the end of November. She states she actually had blood work done more recently by her private physician that was okay. I do not think repeating this blood work EKGs x-rays will be needed at this time. Discharge Plan Triage Chief Complaint: Hypertension ED Provider: Zackery Coleman Dx/Rx/DC Orders Clinical Impression: Essential hypertension Instructions: ED Hypertension, Established Prescriptions: No Action rosuvastatin 10 mg tablet 10 mg PO QHS multivitamin Tablet 1 tab PO DAILY Co L-76-Piejcho E-Fish Oil 25-150-200 mg-mg-unit capsule 1 cap PO DAILY Complex B-100 Tablet Extended Release 1 tab PO Q OTHER DAY ascorbic acid (vitamin C) 1,000 mg tablet 1 g PO DAILY levothyroxine 25 mcg tablet 25 mcg PO DAILY Label Comments: TAKE 1 TABLET BY MOUTH EVERY DAY IN THE MORNING ON EMPTY STOMACH nifedipine 30 mg tablet extended release 30 mg PO DAILY Primary Care Provider: Zenaida Barksdale Referrals: Zenaida Barksdale DO [Primary Care Provider] - Hussein De León MD [Med Staff - Active Staff] - Keep [facility] appointment Disposition Disposition: Home, Self Care What to do if you have Problems For any increased pain, shortness of breath, bleeding, nausea or vomiting, chest pain, or any unexpected problems, contact your Primary Care Provider. Call [facility] ([phone]) or report to the closest Emergency Room. Call 911 if necessary. 01/23/22 9707 <Electronically signed by Zackery Coleman MD> Cosigner Signature (if applicable): CC: Dr. Zenaida Barksdale DO Signed Zenaida Barksdale DO Work Phone: Start: 01-06-2022 End: 01-06-2022 Echo Complete Procedure Note: See Note; NOTES: [facility] [address] [place] [address] Echo Complete 01/06/22 1255 MR#: [id number] Acct: [id number] Name: JAZZ PETTY Rep #: [id number] : 1970 51 From: Hussein De León MD Attending Dr: Dr. Zenaida Barksdale DO Status: R EG CLI Ordering Dr: Zenaida Barksdale DO Date: 01/06/22 Location: [facility] Sex: F C Admitted: Reason For Study: Tricuspid Insufficiency Procedure This was a 2D Doppler, Color Flow transthoracic echocardiogram. The exam was of adequate technical quality. Exam performed in department. Left Ventricle Normal LV size. Left ventricular systolic function is hyperdynamic. The estimated ejection fraction is 75 %. Diastolic function is indeterminate. No regional wall motion abnormalities noted. Right Ventricle Normal RV size. Normal systolic function. Atria Normal left atrium. Normal right atrium. No doppler evidence for ASD. Mitral Valve There is no mitral annular calcification. Normal mitral valve. Trivial mitral valve insufficiency. Tricuspid Valve Normal tricuspid valve. Mild to moderate (1-2+) eccentric tricuspid valve insufficiency. Right ventricular systolic pressure estimated to be 51 mmHg. Aortic Valve Trisinus/trileaflet aortic valve. Normal aortic valve. Pulmonic Valve The pulmonic valve is not well visualized. Trivial pulmonic valve insufficiency. Great Vessels Normal sized aortic root. Pericardium/Pleural No pericardial effusion. MMode/2D Measurements Calculations LVIDd: 3.9 cm IVSd: 0.65 cm Ao root diam: 3.0 cm LVIDs: 2.4 cm LVPWd: 0.89 cm LA dimension: 3.2 cm RVDd: 3.7 cm FS: 38.4 % LAV(MOD-bp): 62.9 ml LA A4 area: 21.2 cm2 RA A4 area: 19.1 cm2 LAV(MOD-bp) Indexed: 35.5 ml/m2 LAV(MOD-sp2): 59.5 ml LAV(MOD-sp4): 64.6 ml Time Measurements MV dec time: 0.20 sec Doppler Measurements Calculations MV E max maribell: 106.4 cm/sec Lat Peak E' Maribell: 15.5 cm/sec Med Peak E' Maribell: 15.4 cm/sec MV A max maribell: 77.0 cm/sec E/E' lat: 6.9 E/E' med: 6.9 MV E/A: 1.4 MV V2 max: 118.3 cm/sec MV P1/2t max maribell: 117.3 cm/sec Ao V2 max: 205.8 cm/sec MV max P.6 mmHg MV P1/2t: 65.4 msec Ao max P.0 mmHg MV V2 mean: 60.8 cm/sec MV dec slope: 525.6 cm/sec2 Ao V2 mean: 139.1 cm/sec MV mean P.8 mmHg MVA(P1/2t): 3.4 cm2 Ao mean P.9 mmHg MV V2 VTI: 27.6 cm Ao V2 VTI: 42.2 cm LV V1 max: 156.0 cm/sec PA V2 max: 128.9 cm/sec TR max maribell: 325.6 cm/sec LV V1 max P.7 mmHg PA V2 mean: 96.9 cm/sec TR max P.6 mmHg LV V1 mean P.8 mmHg LV V1 mean: 114.6 cm/sec LV V1 VTI: 34.2 cm ECHO/Echo Complete Interpretation Summary Left ventricular systolic function is hyperdynamic. The estimated ejection fraction is 75 %. Trivial mitral valve insufficiency. Mild to moderate (1-2+) eccentric tricuspid valve insufficiency. Trivial pulmonic valve insufficiency. Right ventricular systolic pressure estimated to be 51 mmHg c/w pulmonary hypertension. Diastolic function is indeterminate. Ordering Physician: Zenaida Barksdale Referring Physician: Zenaida Barksdale Performed By: Kwadwo Huerta RCS 01/06/22 1741 Date Hussein De León MD CC: Dr. Zenaida Barksdale, DO Date Dictated: 01/06/22 1255 Date Transcribed: 01/06/22 1741 Foot Worker: Signed Zenaida Barksdale DO Work Phone: Start: 12-07-2021 End: 12-08-2021 Emergency Department Summary Procedure Note: See Note; NOTES: [facility] Medical Records Department [address] [place] [address] Emergency Department Summary 12/07/21 MR#: [id number] Acct: [id number] Name: JAZZ PETTY Rep #: [id number] : 1970 51 From: Wesley Luna MD PCP: Dr. Zenaida Barksdale DO Status:REG ER Location: ED HPI History of Present Illness Chief Complaint: Palpitations Informant: patient and spouse/S.O. Onset/Context/Timing Onset: Today (Several hours ago) Context: Sudden Onset (Soon after got off couch and took a drink of alcoholic beverage) Timing: Continuous Quality: Racing Location: chest Current Severity: Gone Maximum Severity: Moderate Worsened by: nothing Relieved by: nothing in particular Associated Symptoms Associated Symptoms: none Narrative Narrative: patient had sudden onset of racing heartbeat tonight. No associated chest discomfort, dyspnea, lightheadedness or near syncope/syncope, started going away as she came to the ED and now she is asymptomatic. She states when it was racing she was feeling anxious and that made it feel like it was racing further, she checked her blood pressure and it was elevated which made her feel more anxious. She has had episodes like this in the past but the last one was 2 or 3 years ago, this is only the third or fourth time it has happened. [facility] Medical History (Updated 12/07/21 @ 01:[address] Wesley Luna MD) Hypertension Home Medications lisinopril 10 mg tablet 5 mg PO DAILY 03/02/19 [History Last Taken Unknown] norethindrone 1 mg-ethinyl estradiol 20 mcg (21)-iron 75 mg (7) tablet 1 tab PO DAILY 03/02/19 [History Last Taken Unknown] levothyroxine 25 mcg tablet 25 mcg PO DAILY 12/07/21 [History Last Taken Unknown] Allergy/AdvReac Type Severity Reaction Status Date / Time No Known Allergies Allergy Verified 12/06/21 23:50 Social History Smoking Status: Never smoker ROS ROS ED Constitutional Constitutional ED: Denies chills or fever(s) Eyes Eyes: Denies change in vision or diplopia ENT ENT ED: Denies rhinorrhea or sore throat Cardiovascular Cardiovascular: Reports palpitations and racing heartbeat; Denies chest pain Respiratory/Chest Respiratory/Chest: Denies cough or dyspnea Gastrointestinal Gastrointestinal: Denies abdominal pain, diarrhea, nausea or vomiting Genitourinary Genitourinary ED: Denies dysuria or hematuria Musculoskeletal Musculoskeletal: Denies back pain or neck pain Integumentary Denies abscess or rash Neurologic Neurologic: Denies headache(s), paresthesias or weakness Psychiatric Psychiatric: Reports anxiety; Denies suicidal thoughts EXAM Physical Exam Const Vital Signs: 12/06/21 23:50 12/07/21 00:46 Temperature 98.1 F Temperature Source Temporal Pulse Rate 115 H 103 H Respiratory Rate 18 16 Blood Pressure 159/93 H 148/87 H Blood Pressure Mean 115 107 Pulse Ox 99 98 Oxygen Delivery Method Room Air Room Air Positive well nourished and well developed General Appearance ED: well developed and NAD HEENT Reports moist mucous membranes normocephalic and atraumatic Eyes PERRL and EOMs intact bilaterally Neck full ROM and supple Resp normal respiratory effort and clear to auscultation bilaterally Cardio regular rate and regular rhythm Cardio Narrative: Systolic ejection murmur heard best LLSB, 2/6 Rate: Negative for tachycardic GI non-tender and non-distended Auscultation: normoactive bowel sounds Palpation: soft Back/Spine no CVA tenderness General Back: other FROM Extremity normal to inspection General Extremety ED: Negative for edema, pulses abnormal or tenderness General Extremity: Negative for edema or pulses abnormal Neuro oriented x3, CN's II-XII intact bilaterally and no sensory deficits noted Sensorium / Orientation: awake and alert Motor Exam: strength 5/5 throughout Skin no rashes or lesions noted and no wounds MDM MDM MDM Narrative Medical decision making narrative: Patient has a normal EKG and a sinus rhythm on the monitor at this time and she is asymptomatic. I discussed her heart murmur, she states her doctor has heard it as well and she remembers having an echocardiogram, she was now referred to cardiology at that point, and does not remember if it showed anything significant. I reviewed the results in our system, the last when she had was 2012 and it showed mild 1+ tricuspid valve insufficiency, the valve was otherwise unremarkable and the other valves were unremarkable. It is unknown if this could be leading to a dysrhythmia. I recommend an outpatient follow-up with cardiology. I ran her blood counts and electrolytes here as we watched her blood pressure and rhythm on the monitor. Glucose is 209, this should be rechecked ideally when fasting as an outpatient. She had no recurrence of symptoms, her blood pressure gradually came down, 141 systolic the last time I saw it, and she is stable for discharge. Lab Data Attestation: I reviewed the patient's lab results. Labs: Laboratory Results - last 24 hr 12/07/21 12/07/21 00:20 00:20 WBC 4.6 RBC 4.35 Hgb 14.0 Hct 40.8 MCV 93.8 MCH 32.2 H MCHC 34.3 RDW Std Deviation 41.5 RDW Coeff of Claudio 11.9 Plt Count 264 MPV 9.5 Immature Gran % (Auto) 0.200 Neut % (Auto) 45.7 L Lymph % (Auto) 44.6 H Pondera % (Auto) 7.1 Eos % (Auto) 1.1 Baso % (Auto) 1.3 H Absolute Neuts (auto) 2.1 Absolute Lymphs (auto) 2.06 Nucleated RBC % 0 Sodium 140 Potassium 3.9 Chloride 109 H Carbon Dioxide 26.0 Anion Gap 5 BUN 17 Creatinine 1.06 H Estim Creat Clear Calc 57.13 Est GFR (MDRD) Af Amer 71 Est GFR (MDRD) Non-Af 58 L BUN/Creatinine Ratio 16.0 Glucose 209 H Calcium 8.5 Rhythm Strip Rhythm Strip: Sinus Rhythm Rate: 100 Ectopy: None EKG Initial EKG: Attestation: I personally reviewed and interpreted this EKG as follows: Interpretation: Sinus Rhythm and No Acute Injury Pattern Discharge Plan Triage Chief Complaint: Palpitations ED Provider: Wesley Luna Dx/Rx/DC Orders Clinical Impression: Palpitations, Hyperglycemia Instructions: ED Understanding Supraventricular Tachycardia (SVT) Prescriptions: No Action norethindrone-e.estradiol-iro n 1 EACH tablet 1 tab PO DAILY Label Comments: TAKE 1 TABLET BY MOUTH EVERY DAY lisinopril 10 MG tablet 5 mg PO DAILY Label Comments: TAKE 1 TABLET BY MOUTH TWICE DAILY levothyroxine 25 mcg tablet 25 mcg PO DAILY Label Comments: TAKE 1 TABLET BY MOUTH EVERY DAY IN THE MORNING ON EMPTY STOMACH Primary Care Provider: Zenaida Barksdale Referrals: Bisi Jamison MD [Med Staff - Active Staff] - (Call for appointment) Zenaida Barksdale DO [Primary Care Provider] - Activity Restrictions/Additional Instructions: Your blood sugar was 209, that is a random 1 and is a little on the high side it should be lower than 200, talk to your doctor about this and rechecking it as well. Disposition Disposition: Home, Self Care What to do if you have Problems For any increased pain, shortness of breath, bleeding, nausea or vomiting, chest pain, or any unexpected problems, contact your Primary Care Provider. Call [facility] ([phone]) or report to the closest Emergency Room. Call 911 if necessary. 12/07/21 0126 <Electronically signed by Wesley Luna MD> Cosigner Signature (if applicable): CC: Dr. Zenaida Barksdale DO Signed Zenaida Barksdale DO Work Phone: Start: 12-07-2021 End: 12-09-2021 12 Lead EKG Procedure Note: See Note; NOTES: [facility] Cardiovascular Services [address] [place] [id number] 12 Lead EKG 12/07/21 0000 MR#: [id number] Acct: [id number] Name: JAZZ PETTY Rep #: [id number] : 1970 51 From: Hussein De León MD Attending Dr: Status: DEP ER Ordering Dr: Wesley Luna MD Date: 12/07/21 Location: ED Sex: F C Admitted: Test Reason : PALPS Blood Pressure : / mmHG Vent. Rate : 096 BPM Atrial Rate : 096 BPM P-R Int : 118 ms QRS Dur : 080 ms QT Int : 344 ms P-R-T Axes : 051 073 039 degrees QTc Int : 434 ms Normal sinus rhythm Nonspecific ST abnormality Abnormal ECG Confirmed by GENET FANG, HUSSEIN ([id number]), commercial production editor JAZZ MATTA ([id number]) on 12/09/2021 12:48:49 PM Referred By: BB Confirmed By:HUSSEIN DE LEÓN MD 12/09/21 1248 Date Hussein De León MD CC: Dr. Wesley Luna MD; Dr. Zenaida Barksdale DO Signed Zenaida Barksdale DO Work Phone: Start: 08-15-2021 End: 08-15-2021 Mammography Sommer Matthew MD Work Phone: Start: 07-23-2020 Mammography Sommer Matthew MD Work Phone: Start: 03-02-2019 End: 03-06-2019 Emergency Department Summary Comments: See Note; NOTES: [facility] Medical Records Department [address] [place] [address] Emergency Department Summary 03/02/19 0855 MR#: [id number] Acct: [id number] Name: JAZZ SHARMA Rep #: [id number] : 1970 48 From: Pauline Wesley MD PCP: Zenaida Barksdale DO Status: DEP ER History of Present Illness Chief Complaint: Hypertension Informant: Patient, Family Onset: Today Narrative: Patient presents with concerns for hypertension. She is a history of hypertension and takes a half a tab of lisinopril a day. She believes that tabs are 25 mg. She states she has not checked her blood pressure at home for quite some time and checked it last evening. It was 126/93. Patient states she checked her blood pressure this morning and it read quite high on her home monitor. 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 Pressure readings there were 210/105 and 170/110. Patient states they had checked pressure on her left arm only. Patient went home and took her lisinopril and called her doctor's office. Doctor's office advised the pressure was too high for them to see in the office and she needed to go the emergency room. In triage here blood pressure is 139/84. Patient does report having some intermittent reflux symptoms. She denies headache. She reports being more fatigued, but states she does not sleep well and attributed it to that. - Past Medical History (1) Hypertension Status: Chronic Past Medical History Primary Care Physician: Zenaida Barksdale DO [Primary Care Provider] - Lives: With Family Review of Systems General: Denies: Chills, Fever Eyes: Denies: Visual changes - bilaterally ENT: Denies: Bilateral ear pain Cardiovascular: Reports: Chest pain - She attributes to reflux. Respiratory: Denies: Dyspnea, Cough Gastrointestinal: Denies: Abdominal pain, Nausea, Vomiting Musculoskeletal: Denies: Back pain, Extremity Pain Neurological: Denies: Headache, Weakness, Parasthesia Hematologic: Denies: Easy bruising Allergy: Denies: Uticaria Physical Exam Vital Signs/Narrative: Vital Signs 03/02/19 08:37 97.6 F L 85 18 139/84 H 98 Inital Vital Signs reviewed: Yes General: Well nourished, Well developed Head: Normocephalic ENT: Moist mucous membranes Neck: Supple Cardiovascular: Regular rate, Regular rhythm Respiratory: No distress, CTA bilaterally Abdomen: Soft, Nontender Back: Nontender Extremities: Nontender Skin: Normal color, No rash Neurological: Alert, Oriented x3, Normal Strength, Normal Sensation Psychological: Normal affect Diagnostic/Tx/Re-eval Impressions Chest X-Ray 03/02/19 09:05 IMPRESSION: Normal x-ray examination of the chest. Electronically Signed: Paul Thiago, at 9:22 EST , Service support , 03/02/19 09:05 Chest 1 View (Portable) [RAD] Stat Laboratory Results WBC 7.3 RBC 4.85 Hgb 14.9 Hct 44.4 MCV 91.5 MCH 30.7 MCHC 33.6 RDW Std Deviation 39.5 WBC RBC Hgb Hct MCV MCH MCHC RDW Std Deviation RDW Coeff of Claudio Plt Count MPV Immature Gran % (Auto) Neut % (Auto) Lymph % (Auto) Pondera % (Auto) - EKG Initial EKG Interpretation: Sinus Rhythm - Sinus at 95. Minimal anterior lateral ST depression at approximately 1/2 mm. - Medical Decision Making Patient was observed on surveillance monitor here. When I first saw the patient her blood pressure in her right arm was 165/88 and left arm was 147/78. At this time I rechecked blood pressure in each arm and they are essentially the same, left arm 150/83, right arm 153/99. At this time I will speak with her primary care physician. My suspicion is that we will have patient check her blood pressure couple times a day and keep a journal and follow-up in the office early next week. After speaking with Dr. Barksdale patient is advised to go ahead and take full tab of lisinopril daily and keep a journal of her blood pressures. ED Disposition - Plan for ED Patient: Disposition: Home or Assisted Living Diagnosis: Hypertension Instructions: HYPERTENSION, Established Referrals: Zenaida Barksdale DO [Primary Care Provider] - 5-7 Days Additional Instructions: Take a full tab of Lisinopril daily. Keep a journal of your blood pressures at home and follow-up with Dr Barksdale next week. What to do if you have Problems For any increased pain, shortness of breath, bleeding, nausea or vomiting, chest pain, or any unexpected problems, contact your Primary Care Provider. Call [facility] ([phone]) or report to the closest Emergency Room. Call 911 if necessary. 03/02/19 1520 <Electronically signed by Pauline Wesley MD> Date Pauline Wesley MD Cosigner Signature (If Indicated): Date CC: Zenaida Crandall Start: 03-02-2019 End: 03-06-2019 Chest 1 View (Portable) Comments: See Note; NOTES: [facility] Imaging Services [address] [place] [address] Chest 1 View (Portable) MR#: [id number] Acct: [id number] Name: JAZZ PETTY Rep #: [id number] : 1970 F 48 From: Paul Lovett MD PCP: Zenaida Barksdale DO Status: PRE ER Study: Chest 1 View (Portable) Date of Exam: 03/02/19 Exam# [id number] Ordering Dr: Pauline Wesley MD STUDY: X-RAY CHEST REASON FOR EXAM: Female, 48 years old. Chest pain. Hypertension. TECHNIQUE: Single AP portable view of the chest. COMPARISON: None. FINDINGS: The lungs are clear and expanded. There is no demonstrated pleural abnormality. Normal size heart. Normal mediastinum and марина. Normal visualized pulmonary arteries. Normal visualized aortic arch and descending thoracic aorta. Normal visualized thoracic spine. Normal visualized ribs, clavicles, and shoulders. There is no demonstrated abnormality of the visualized soft tissue structures of the upper abdomen. RAD/Chest 1 View (Portable) IMPRESSION: Normal x-ray examination of the chest. Electronically Signed: Paul Lovett, at 9:22 EST , Service support , CC: Pauline Wesley MD; Zenaida Barksdale DO Foot Worker: Signed Zenaida Barksdale Start: 06-11-2015 End: 06-11-2015 No Known Past Surgical History Cameliavitcor manuel Matutekayla Start: 11-21-2013 End: 11-21-2013 PT Discharge Summary Comments: See Note; NOTES: [facility] Physical Therapy Health[address] [place] [address] Fax REHABILITATION SERVICES DISCHARGE SUMMARY MR#: [id number] Acct: [id number] Name: JAZZ PETTY Rep #: [id number] : 1970 43 From: Celi Adan Referring : Stone Torres MD Status: DIS RCR Eval Date: Discharge Date: 11/16/13 DATE OF SERVICE: 11/10/2013 This patient was referred to physical therapy by Dr. Stone Torres with a diagnosis of low back pain/coccyx pain. She has been seen in our clinic times a total of 9 visits during this episode of care. Her physical therapy has mainly consisted of therapeutic exercise to improve her dynamic lumbar stabilization and lower extremity strength. Upon presentation to her last visit, she reports intermittent tailbone pain. She reports having a tendency to get tight in the glute and back areas. Since starting physical therapy, she states "I am definitely better." She plans to follow up with Dr. Torres next week. She is reporting 60-70% improvement. Celi Adan, PT T: [facility] JOB: [id number] <Electronically signed by Celi Adan > 11/21/13 0920 CC: Signed Zenaidawander Barksdale Start: 10-17-2013 End: 10-17-2013 Inital Evaluation - PT Comments: See Note; NOTES: [facility] Physical Therapy Health[address] [place] [address] Fax REHABILITATION SERVICES INITIAL EVALUATION MR#: [id number] Acct: [id number] Name: JAZZ PETTY Rep #: [id number] : 1970 42 From: Celi Adan Referring : Stone Torres MD Status: DIS RCR Insurance: [facility] Eval Date: DATE OF SERVICE: 10/12/2013 SUBJECTIVE: This patient was referred to physical therapy by Dr. Stone Torres with a diagnosis of low back and coccyx pain. She reports that she is unemployed. Her back pain is constant and ranges in intensity from 3/10-7/10. She also reports back, buttock and posterior thigh "tightness." She has intermittent posterior thigh pain 0-3/10 right greater than left. She reports that she has had the pain for months, but it has been worsening less than a year. It started for no apparent reason. She has a long history of chiropractic treatments off and on since the age of 26 for her back and neck. She reports that chiropractic treatments and massage helped. Currently, bending, picking strawberries, sometimes sitting, walking and jogging increases her pain. She reports decreased pain with ibuprofen. The pain is not disturbing her sleep. She denies increased pain with coughing, sneezing or straining. She denies needing an assistive device. She denies difficulty initiating urination. She states that she is not taking any prescription medications and is in good health otherwise. A recent lumbar x-ray was normal according to patient report. She denies any recent or major surgery, having been in any accidents or any unexplained weight loss. OBJECTIVE: This patient ambulates independently into physical therapy with no gross deviations noted. Her sitting posture is fair. Her standing posture is fair. She has a normal lumbar lordosis and no relevant lateral shift. Active correction of her sitting posture has no effect on her symptoms. Bilateral lower extremity strength is 5/5 with manual muscle testing. Bilateral lower extremity light touch sensation is intact and symmetrical. Bilateral lower extremity reflexes are 2/2. She has a possible positive right lower extremity dural sign and negative left lower extremity dural sign. Lumbar movement loss: Flexion - moderate, extension - moderate, right side gliding - minimal, left side gliding - minimal. The patient denies pain with side glide testing, but reports pain with flexion and extension. She has fair core strength. She does not have tenderness with palpation, but she does have increased muscle tone of bilateral thoracic and lumbar paraspinals. She was able to demonstrate planks, prone arm/leg lift and bridges which are exercises that her chiropractor taught her and she has been doing. TREATMENT: This patient was seen today initiating treatment with ultrasound at 1.5 ibarra per cm2, 50% x8 minutes to the right lumbosacral and gluteal region. She reported decreased pain after ultrasound. ASSESSMENT: This patient is a 42-year-old female with complaint of back, bilateral gluteal and hamstring "tightness and pain." She also has tailbone pain. Her pain started months ago for no apparent reason and are worsening. She has a long history of chiropractic treatments. GOALS: 1. Decrease complaint of low back pain. 2. Decrease complaint of bilateral lower extremity symptoms. 3. Improve bending, sitting, walking, jogging function. 4. Instruct in prophylaxis. PLAN: We plan to see this patient 2-3 times a week x4-6 weeks for modalities as needed, dynamic lumbar stabilization, posture correction, instruction in proper body mechanics and home exercise program, instruction to help meet the above goals. She was agreeable with this plan of care. Celi Adan, PT T: [facility] JOB: [id number] <Electronically signed by Celi Adan > 10/17/13 1601 CC: Signed For Medicare only, by signing this I certify the plan of care. Physicians Signature Date Zenaida Barksdale Start: 08-18-2013 End: 08-21-2013 Sacrum-Coccyx min 2 Views Comments: See Note; NOTES: [facility] Imaging Services [address] [place] [address] Radiology Report MR#: [id number] Acct: [id number] Name: JAZZ PETTY Rep #: [id number] : 1970 F 42 From: Julio Cesar Lewis DO PCP: Stone Torres MD Status: REG CLI Study: Sacrum-Coccyx min 2 Views Date of Exam: 08/18/13 Exam# [id number] Ordering Dr: Stone Torres MD STUDY: X-RAY - SACRUM/COCCYX REASON FOR EXAM: Female, 42 years old. Pain. TECHNIQUE: 3 view(s) of the sacrum and coccyx were obtained. COMPARISON: None. FINDINGS: Normal bilateral sacroiliac joints. Normal visualized sacral ala and fused sacral bodies. Normal sacrococcygeal junction with a normal angulation. Normal coccygeal segments. The presacral soft tissue structures are unremarkable. There is no visualized fracture or dislocation. There is generalized osteopenia. IMPRESSION: No acute abnormality of the sacrum or coccyx. Electronically Signed: Julio Cesar Lewis DO at 23:14 EDT Tel [phone], Service support [phone], RAD/Sacrum-Coccyx min 2 Views IMPRESSION: No acute abnormality of the sacrum or coccyx. Electronically Signed: Julio Cesar Lewis at 23:14 EDT Tel [phone], Service support [phone], CC: Stone Torres MD Foot Worker: Signed Stone Torres Work Phone: Start: 09-06-2007 Lipid 1996 panel - Serum or Plasma [place] Plan of Treatment Date Care Activity Detail Author Start: 08-15-2026 HPV TESTING HPV TESTING [facility] Start: 08-15-2026 PAP TESTING PAP TESTING [facility] Start: 08-15-2026 Screening for malignant neoplasm of cervix [facility] Start: 10-02-2025 End: 10-02-2025 Patient encounter procedure Mammogram Comment on above: Encounter for gynecological examination (general) (routine) without abnormal findings [Z01.419]; Encounter for screening mammogram for breast cancer [Z12.31] Annual Start: 09-28-2025 Screening for malignant neoplasm of breast Mammogram Screening [facility] Start: 12-18-2024 Influenza vaccination Influenza Vaccine (Season Ended) [facility] Start: 10-10-2024 End: 10-10-2024 Patient encounter procedure Mammogram Comment on above: right breast diag mamm and us cb per ld Start: 09-28-2024 End: 09-28-2024 Patient encounter procedure Mammogram Comment on above: Encounter for screening mammogram for [facility] [Z12.31] Annual Start: 09-26-2024 BP Controlled (<130/80) BP Controlled (<130/80) [facility] Start: 09-26-2024 Screening for malignant neoplasm of breast Mammogram Screening [facility] Start: 03-15-2024 End: 03-15-2024 Patient encounter procedure 03/15/2024 2:00 PM EST Office Visit Pulmonary Medicine [address] [place] [address] Sulaiman Whyte MD [address] [place] [address] follow up echo resulsd [facility] Comment on above: follow up echo resulsd Start: 12-19-2023 Covid-19 Vaccine ( season) Covid-19 Vaccine () [facility] Start: 12-19-2023 Influenza vaccination [facility] Start: 09-27-2023 End: 09-27-2023 Patient encounter procedure Mammogram Comment on above: mammo screen annual Start: 08-22-2023 Mammography [facility] Start: 08-22-2023 Screening for malignant neoplasm of breast Mammogram Screening [facility] Start: 04-19-2023 Behavioral Health Screening Behavioral Health Screening [facility] Start: 04-19-2023 Depression Assessment Depression Assessment [facility] Start: 01-08-2023 Procedure Education [facility] Work Phone: Start: 01-08-2023 Provider Instructions for Treatment [facility]; [facility] Work Phone: Start: 12-18-2022 Covid-19 Vaccine () Covid-19 Vaccine () [facility] Start: 12-18-2022 Influenza vaccination [facility] Start: 09-02-2022 Procedure Education [facility]; [facility] Work Phone: Start: 08-15-2022 BP CONTROLLED (<130/80) BP CONTROLLED (<130/80) [facility] Start: 08-15-2022 Mammography MAMMOGRAM [facility] Start: 07-03-2022 Procedure Education [facility]; [facility] Work Phone: Start: 07-03-2022 Provider Instructions for Treatment [facility]; [facility] Work Phone: Start: 07-03-2022 Comprehensive metabolic panel METABOLIC PANEL, COMPREHENSIVE (35637) [facility]; [facility] Work Phone: Start: 07-03-2022 Blood count complete auto&auto difrntl wbc CBC with auto diff (07776) [facility]; [facility] Work Phone: Start: 07-03-2022 Hemoglobin glycosylated a1c HGB A1C (88062) [facility]; [facility] Work Phone: Start: 07-03-2022 Lipid panel LIPID PANEL (39650) [facility]; [facility] Work Phone: Start: 07-03-2022 Assay of thyroid stimulating hormone tsh TSH (96510) [facility]; [facility] Work Phone: Start: 04-19-2022 DEPRESSION ASSESSMENT DEPRESSION ASSESSMENT [facility] Start: 01-09-2022 Procedure Education [facility]; [facility] Work Phone: Start: 01-09-2022 Provider Instructions for Treatment [facility]; [facility] Work Phone: Start: 12-18-2021 Influenza vaccination INFLUENZA (#1) [facility] Start: 12-12-2021 Procedure Education [facility]; [facility] Work Phone: Start: 12-12-2021 Provider Instructions for Treatment [facility]; [facility] Work Phone: Start: 11-03-2021 Pneumococcal Vaccine: 50+ (1 of 1 - PCV) Pneumococcal Vaccine: 50+ (1 of 1 - PCV) [facility] Start: 11-03-2021 SHINGRIX VACCINE (1 of 2) SHINGRIX VACCINE (1 of 2) [facility] Start: 07-23-2021 BP CONTROLLED (<130/80) BP CONTROLLED (<130/80) [facility] Start: 07-23-2021 Mammography MAMMOGRAM [facility] Start: 07-10-2021 Procedure Education [facility]; [facility] Work Phone: Start: 06-05-2021 HPV TESTING HPV TESTING [facility] Start: 06-05-2021 PAP TESTING PAP TESTING [facility] Start: 05-20-2021 COVID-19 VACCINE (4 - Booster for Pfizer series) COVID-19 VACCINE (4 - Booster for Pfizer series) [facility] Start: 04-01-2021 Urine microalbumin profile [facility] Start: 12-18-2020 Influenza vaccination INFLUENZA (#1) [facility] Start: 11-01-2020 Procedure Education [facility]; [facility] Work Phone: Start: 11-01-2020 Provider Instructions for Treatment [facility]; [facility] Work Phone: Start: 11-01-2020 Hemoglobin glycosylated a1c HGB A1C (87597) [facility]; [facility] Work Phone: Start: 11-01-2020 Lipid panel LIPID PANEL (45368) [facility]; [facility] Work Phone: Start: 11-01-2020 Hepatic function panel HEPATIC FUNCTION PANEL (28995) [facility]; [facility] Work Phone: Start: 10-24-2020 Comprehensive metabolic panel METABOLIC PANEL, COMPREHENSIVE (44012) [facility]; [facility] Work Phone: Start: 10-24-2020 Lipid panel LIPID PANEL (87939) [facility]; [facility] Work Phone: Start: 04-10-2020 Lipid panel LIPID PANEL (72324) [facility]; [facility] Work Phone: Start: 04-10-2020 Procedure Education [facility]; [facility] Work Phone: Start: 04-10-2020 Provider Instructions for Treatment [facility]; [facility] Work Phone: Start: 01-10-2020 HbA1c (Bld) [Mass fraction] HGB A1C (86492) [facility] Work Phone: Start: 01-10-2020 Urnls dip stick/tablet reagent auto microscopy URINALYSIS, W/ MICRO (21760) [facility] Work Phone: Start: 01-10-2020 Urine albumin quantitative MICROALBUMIN: CREATININE RATIO (65864) AND (60134) [facility] Work Phone: Start: 01-10-2020 Comprehensive metabolic panel METABOLIC PANEL, COMPREHENSIVE (15627) [facility] Work Phone: Start: 01-10-2020 Blood count complete auto&auto difrntl wbc CBC W/AUTO DIFF WBC (79136) [facility] Work Phone: Start: 01-10-2020 TSH Qn TSH (71240) [facility] Work Phone: Start: 01-10-2020 Procedure Education [facility] Work Phone: Start: 01-10-2020 Provider Instructions for Treatment [facility] Work Phone: Start: 09-01-2019 Provider Instructions for Treatment [facility] Work Phone: Start: 05-05-2019 Procedure Education [facility] Work Phone: Start: 05-05-2019 Provider Instructions for Treatment [facility] Work Phone: Start: 03-24-2019 Provider Instructions for Treatment [facility] Work Phone: Start: 10-28-2018 Provider Instructions for Treatment [facility] Work Phone: Start: 04-29-2018 Provider Instructions for Treatment [facility] Work Phone: Start: 04-29-2018 Thyrotropin Qn TSH (THYROID STIMULATING HORMONE) (51660) [facility] Work Phone: Start: 04-29-2018 Urine albumin quantitative MICROALBUMIN: CREATININE RATIO (66869) AND (59385) [facility] Work Phone: Start: 04-29-2018 Comprehensive metabolic panel METABOLIC PANEL, COMPREHENSIVE (43892) [facility] Work Phone: Start: 04-29-2018 Lipid panel LIPID PANEL (51701) [facility] Work Phone: Start: 04-29-2018 Blood count complete auto&auto difrntl wbc CBC with auto diff (19759) [facility] Work Phone: Start: 04-29-2018 Hemoglobin A1c/Hemoglobin.total mass fraction (Bld) HGB A1C (39608) [facility] Work Phone: Start: 02-18-2018 Procedure Education [facility] Work Phone: Start: 02-18-2018 Hemoglobin A1c/Hemoglobin.total mass fraction (Bld) HGB A1C (69837) [facility] Work Phone: Start: 02-18-2018 Thyrotropin Qn TSH (40318) [facility] Work Phone: Start: 02-18-2018 Urnls dip stick/tablet reagent auto microscopy URINALYSIS, W/ MICRO (56847) [facility] Work Phone: Start: 02-18-2018 Urine albumin quantitative MICROALBUMIN: CREATININE RATIO (60726) AND (38289) [facility] Work Phone: Start: 02-18-2018 Comprehensive metabolic panel METABOLIC PANEL, COMPREHENSIVE (58995) [facility] Work Phone: Start: 02-18-2018 Blood count complete auto&auto difrntl wbc CBC W/AUTO DIFF WBC (33817) [facility] Work Phone: Start: 02-18-2018 Glucose mass conc GLUCOSE (81982) [facility] Work Phone: Start: 02-18-2018 Glucose quantitative blood xcpt reagent strip [facility]; [facility] Work Phone: Start: 02-18-2018 Lipid panel LIPID PANEL (57666) [facility] Work Phone: Start: 04-21-2017 Provider Instructions for Treatment [facility] Work Phone: Start: 03-25-2017 Provider Instructions for Treatment [facility] Work Phone: Start: 03-09-2017 Gluc bld gluc mntr dev cleared fda spec home use [facility]; [facility] Work Phone: Start: 03-09-2017 Glucose mass conc Blood Glucose , Office (79998) [facility] Work Phone: Start: 03-09-2017 Procedure Education [facility] Work Phone: Start: 03-09-2017 Provider Instructions for Treatment [facility] Work Phone: Start: 11-03-2016 COLOGUARD (FIT-DNA) COLOGUARD (FIT-DNA) [facility] Start: 11-03-2016 Colonoscopy COLONOSCOPY [facility] Start: 11-03-2016 COLORECTAL CANCER SCREENING COLORECTAL CANCER SCREENING [facility] Start: 11-03-[address] COLONOGRAPHY [facility] Start: 11-03-2016 DIABETES SCREEN DIABETES SCREEN [facility] Start: 11-03-2016 Diabetes Screening Diabetes Screening [facility] Start: 11-03-2016 FECAL OCCULT BLOOD FECAL OCCULT BLOOD [facility] Start: 11-03-2016 Lipid 1996 panel - Serum or Plasma Lipid Screening [facility] Start: 11-03-2016 Lipid panel Lipid Screening [facility] Start: 11-03-2016 LIPID SCREEN LIPID SCREEN [facility] Start: 11-03-2016 Screening for malignant neoplasm of colon [facility] Start: 11-03-2016 SIGMOIDOSCOPY SIGMOIDOSCOPY [facility] Start: 01-14-2016 Procedure Education [facility] Work Phone: Start: 01-14-2016 Provider Instructions for Treatment [facility] Work Phone: Start: 06-11-2015 Procedure Education [facility] Work Phone: Start: 11-14-2013 Procedure Education [facility] Work Phone: Start: 10-10-2013 Procedure Education [facility] Work Phone: Start: 02-24-2011 Gonadotropin chorionic qualitative [facility] Work Phone: Start: 09-05-2009 Basic metabolic panel calcium total [facility] Work Phone: Start: 09-05-2009 Blood count complete automated [facility] Work Phone: Start: 09-05-2009 Assay of thyroid stimulating hormone tsh [facility]; [facility] Work Phone: Comment on above: presyncope Start: 09-05-2009 Thyrotropin Qn TSH (41921) [facility] Work Phone: Comment on above: presyncope Start: 11-05-2008 Comprehensive metabolic panel [facility] Work Phone: Start: 11-05-2008 Blood count manual cell count each [facility] Work Phone: Start: 11-03-2007 Lipid panel [facility] Work Phone: Start: 11-03-2007 Sedimentation rate rbc non-automated [facility] Work Phone: Start: 11-03-2007 Assay of magnesium [facility]; [facility] Work Phone: Start: 11-03-2007 Magnesium mass conc Magnesium (90565) [facility] Work Phone: Start: 11-03-2007 Creatine kinase total [facility] Work Phone: Start: 11-03-2007 Blood count manual cell count each [facility] Work Phone: Start: 11-03-2007 Comprehensive metabolic panel [facility] Work Phone: Start: 11-03-2007 Assay of thyroid stimulating hormone tsh [facility]; [facility] Work Phone: Start: 11-03-2007 Thyrotropin Qn TSH (33070) [facility] Work Phone: Start: 11-03-2007 Provider Instructions for Treatment [facility] Work Phone: Start: 05-06-2007 Provider Instructions for Treatment [facility] Work Phone: Start: 07-30-2006 Provider Instructions for Treatment [facility] Work Phone: Start: 11-03-1990 Hepatitis B Vaccine (1 of 3 - 19+ 3-dose series) Hepatitis B Vaccine (1 of 3 - 19+ 3-dose series) [facility] Start: 11-03-1989 ANNUAL PCP TEAM CHRONIC DISEASE VISIT ANNUAL PCP TEAM CHRONIC DISEASE VISIT [facility] Start: 11-03-1989 BP CONTROLLED (<130/80) BP CONTROLLED (<130/80) [facility] Start: 11-03-1989 Depression Screening Depression Screening [facility] Start: 11-03-1989 HEPATITIS C SCREENING HEPATITIS C SCREENING [facility] Start: 11-03-1989 Hepatitis C screening Hepatitis C Screening [facility] Start: 1983 Adult depression screening assessment DEPRESSION SCREENING [facility] Start: 11-03-1976 COVID-19 VACCINE (1) COVID-19 VACCINE (1) [facility] Start: 1971 HEPATITIS B (1 of 3 - 3-dose series) HEPATITIS B (1 of 3 - 3-dose series) [facility] Start: 1971 Hepatitis B Vaccine (1 of 3 - 3-dose series) Hepatitis B Vaccine (1 of 3 - 3-dose series) [facility] End: 10-28-2025 DBT Breast - bilateral screening [facility]MA SCREENING W ARELI Radiology Routine Encounter for gynecological examination (general) (routine) without abnormal findings Encounter for screening mammogram for breast cancer 1 Occurrences starting 09/28/2024 until 10/28/2025 [facility] Work Phone: Comment on above: 1 Occurrences starting 09/28/2024 until 10/28/2025 End: 09-28-2024 DBT Breast - bilateral screening [facility] Work Phone: Comment on above: ONCE for 1 Occurrences starting 09/29/19 until 09/28/2024 End: 05-15-2023 Echocardiography ECHO Cardiology Routine Pulmonary hypertension (HCC) 1 Occurrences starting 05/15/2022 until 05/15/2023 [facility] Work Phone: Comment on above: 1 Occurrences starting 05/15/2022 until 05/15/2023 End: 11-21-2023 Echocardiography ECHO Cardiology Routine Pulmonary hypertension (HCC) 1 Occurrences starting 11/20/2022 until 11/21/2023 [facility] Work Phone: Comment on above: 1 Occurrences starting 11/20/2022 until 11/21/2023 End: 03-15-2025 Echocardiography ECHO Cardiology Routine Pulmonary hypertension (HCC) 1 Occurrences starting 03/15/2024 until 03/15/2025 [facility] Work Phone: Comment on above: 1 Occurrences starting 03/15/2024 until 03/15/2025 End: 10-29-2025 MG Breast - right Diagnostic for implant EMMA DIAGNOSTIC RIGHT Radiology Routine Abnormal mammogram 1 Occurrences starting 09/29/2024 until 10/29/2025 [facility] Comment on above: 1 Occurrences starting 09/29/2024 until 10/29/2025 End: 10-26-2024 MG Breast Screening EMMA SCREENING Radiology Routine Encounter for screening mammogram for breast cancer 1 Occurrences starting 09/27/2023 until 10/26/2024 [facility] Work Phone: Comment on above: 1 Occurrences starting 09/27/2023 until 10/26/2024 MG Breast Screening EMMA SCREENIN G Radiology Routine Encounter for screening mammogram for breast cancer 09/27/2023 3:09 PM EDT [facility] Work Phone: PAP FLUID CERVICAL SCREENING PAP FLUID CERVICAL SCREENING Lab Routine Screening for cervical cancer Encounter for screening for human papillomavirus (HPV) 08/15/2021 12:16 PM EDT [facility] Work Phone: Patient Education [facility] Work Phone: Patient referral [facility] Work Phone: End: 09-14-2022 Screening mammography bi 2-view breast inc cad [facility]MA SCREENING Radiology Routine Encounter for screening mammogram for breast cancer 1 Occurrences starting 08/15/2021 until 09/14/2022 [facility] Work Phone: Comment on above: 1 Occurrences starting 08/15/2021 until 09/14/2022 End: 10-29-2025 US Breast - right limited US BREAST LTD RIGHT Radiology Routine Abnormal mammogram 1 Occurrences starting 09/29/2024 until 10/29/2025 [facility] Work Phone: Comment on above: 1 Occurrences starting 09/29/2024 until 10/29/2025 [facility] Work Phone: [facility] Work Phone: [facility] Work Phone: [facility] Work Phone: [facility] Work Phone: [facility] Work Phone: [facility] Work Phone: [facility] Work Phone: [facility] Work Phone: [facility] Work Phone: [facility] Work Phone: [facility] Work Phone: [facility] Work Phone: [facility] Work Phone: [facility] Work Phone: [facility] Work Phone: [facility] Work Phone: [facility] Work Phone: [facility]; [facility] Work Phone: [facility]; [facility] Work Phone: Immunizations Immunization Date Immunization Notes Care Provider Erasmo erazo 03-27-2022 influenza virus vaccine, unspecified formulation [facility] 01-28-2021 influenza, injectabl e, quadrivalent, preservative free Zenaida Barksdale DO Work Phone: [facility]; [facility] Work Phone: 04-19-2017 influenza, seasonal, injectable Zenaida Jaya [facility] Work Phone: 03-18-2017 influenza, injectabl e, quadrivalent, contains preservative Sommer Matthew MD Work Phone: [facility] 02-14-2014 influenza, seasonal, injectable Sommer Matthew MD Work Phone: [facility] Work Phone: 04-01-2011 tetanus toxoid, reduced diphtheria toxoid, and acellular pertussis vaccine, adsorbed Sommer Matthew MD Work Phone: [facility] Work Phone: 03-19-2011 tetanus toxoid, reduced diphtheria toxoid, and acellular pertussis vaccine, adsorbed Zenaida Barksdale [facility] Work Phone: Payers Date Payer Category Payer Self-pay [id number] 2013 Private Health Insurance MMO [employer] PPO [id number] 2013 Unknown 2013 Unknown MMO MMO [employer] [id number] 2013-Present [phone] [address] [place] [id number] PPO [id number] 2012 Unknown [id number] 2010 Unknown [id number] 2004 Unknown [id number] 1971 Unknown [id number] 1971 Unknown [id number] Unknown [id number] Unknown [id number] Unknown [id number] Unknown [id number] Social History Date Type Detail Facility Start: 09-25-2022 End: 11-20-2022 Alcohol Use Never smoker [facility] Work Phone: Comment on above: ocassionally 1 or 2 qd lives with s marlena Current Work/Study Status: Part-time. [facility] Work Phone: Comment on above: at a [employer] Exercise History: Exercises occasionally. [facility] Work Phone: Tobacco use: Never smoker. [facility] Work Phone: Current Work/Study Status: Current Work/Study Status: [facility]; [facility] Work Phone: Comment on above: at a [employer] Exercise History: Exercise History: Compr e[facility]; [facility] Work Phone: Tobacco use: Tobacco use: [facility] Work Phone: Start: 03-31-2011 End: 09-27-2023 Tobacco smoking status NHIS Never smoked tobacco [facility] Start: 07-23-2020 End: 09-28-2024 Alcohol intake Current drinker of alcohol (finding) [facility] Start: 03-25-2010 History SDOH Alcohol Comment occasionally,NOT WHILE [facility] Start: 1970 Sex Assigned At Not on file [facility] Start: 08-05-2021 End: 08-15-2021 Exposure to SARS-CoV-2 (event) Not sure [facility] Start: 12-07-2021 End: 01-29-2022 Tobacco smoking status NHIS Unknown if ever smoked [facility] Work Phone: Start: 03-02-2019 With Family [facility] Work Phone: Start: 1970 Sex Assigned At Female W [facility] Start: 03-31-2011 End: 09-27-2023 Tobacco use and exposure Smokeless tobacco non-user [facility] Work Phone: Start: 09-25-2022 End: 11-20-2022 Tobacco use panel [facility] National Score (1-100), lower number is lower risk 67 [facility] NEGATED: Highlighted rowStart: EDILF History of tobacco use Passive smoker [facility] Functional Status Date Assessment Result Facility 10-13-2019 LP-IR Score 60 [facility] Work Phone: Comment on above: INSULIN RESISTANCE M ARKER <--Insulin Sensitive Insulin Resistant--> Percentile in Reference PopulationInsulin Resistance ScoreLP-IR Score Low 25th 50th 75th High <27 27 45 63 >63LP-IR Score is inaccurate if patient is non-fasting. .The LP-IR score is a laboratory developed index that has beenassociated with insulin resistance and diabetes risk and should beused as one component of a physician's clinical assessment. Test(s) 375362-ZDL-V ; 226295-UKA-V; 057133-RXI-Y; 886152-Eiuqdgbpfzbyz; 417135-Swisevjhqip, Total; 434380-MZA-R (Total);975886-Uwggf LDL-P; 742788-ENW Size; 187842-TQ-VM Scorewas developed and its performance characteristics determinedby [employer]. It has not been cleared or approved by the Foodand Drug Administration.PATIENT WAS FASTINGPERFORMED BY: BN [employer] [address] [id number] BY: CB [id number] [facility] [id number] 04-28-2019 LP-IR Score 32 [facility] Work Phone: Comment on above: INSULIN RESISTANCE M ARKER <--Insulin Sensitive Insulin Resistant--> Percentile in Reference PopulationInsulin Resistance ScoreLP-IR Score Low 25th 50th 75th High <27 27 45 63 >63LP-IR Score is inaccurate if patient is non-fasting. .The LP-IR score is a laboratory developed index that has beenassociated with insulin resistance and diabetes risk and should beused as one component of a physician's clinical assessment. Test(s) 347834-TYD-H ; 314697-ABA-N; 497860-KLB-D; 271764-Mywrlrhwqands; 253336-Tqunuzdwqnf, Total; 447704-YCQ-O (Total);411504-Csegq LDL-P; 363188-GEC Size; 273305-PG-TA Scorewas developed and its performance characteristics determinedby [employer]. It has not been cleared or approved by the Foodand Drug Administration.PATIENT WAS FASTINGPERFORMED BY: BN [facility] [id number] [facility] [id number] BY: CB [facility] [id number] [facility] [id number] 07-10-2014 Are you deaf, or do you have serious difficulty hearing No 07/10/2014 1:39 PM EDT Kalyani Jiang [facility] 07-10-2014 Are you blind, or do you have serious difficulty seeing, even when wearing glasses No 07/10/2014 1:39 PM EDKalyani Shook Ma [facility] 07-10-2014 Do you have serious difficulty walking or climbing stairs No 07/10/2014 1:39 PM EDKalyani Shook Ma [facility] 07-10-2014 Do you have difficul ty dressing or bathing No 07/10/2014 1:39 PM EDT Kalyani Jiang Ma [facility] 07-10-2014 Because of a physica l, mental, or emotional condition, do you have difficulty doing errands alone such as visiting a physician's office or shopping No 07/10/2014 1:39 PM EDKalyani Shook Ma [facility] Mental Status Date Assessment Result Facility 01-23-2022 Cognitive function Level Of Cons ciousness Awake;Alert [facility] Work Phone: 12-07-2021 Cognitive function Voice/Name [facility] Work Phone: 07-10-2014 Because of a physica l, mental, or emotional condition, do you have serious difficulty concentrating, remembering, or making decisions No 07/10/2014 1:39 PM EDT Kalyani Jiang Ma [facility] Clinical Notes 07-10-2014 to 10-10-2024 Cristine Benavides RDMS - 10/10/2024 4:00 PM Petty Caro Mammo Tech - 09/28/2024 2:30 PM Danae Killian APRN.SNOW REMOVAL/PLOWING - 09/28/2024 2:24 PM Sulaiman Parker MD - 03/15/2024 2:00 PM EST Note Date & Type Note Facility 10-10-2024 History of Presen t illness Narrative Radiology Service Progress Note PATIENT NAME: Jazz Coy DATE OF SERVICE: October 10, 2024 TIME: 4:10 PM PATIENT IDENTITY VERIFICATION COMPLETED USING TWO (2) IDENTIFIERS: Name and Date of confirmed by patient verbally. FALL SCREENING: Has the patient had 2 falls in the last year or 1 fall with injury or currently using an Ambulatory Assistive Device (Walker, Cane, Wheelchair, Crutches, etc.)? No PATIENT GENDER DATA: Assigned female at . status: : No status: NO. PATIENT RELEVANT IMPLANT DATA REVIEWED: Not Applicable PATIENT PRESENTS WITH AN IMPLANTABLE OR ATTACHED SURVEILLANCE INVESTIGATOR: No RADIOLOGY DEPARTMENT: Ultrasound PERIPHERAL IV DATA: Not applicable SIGNED BY: Cristine Benavides RDMS October 10, 2024 4:10 PM documented in this encounter [facility] 10-10-2024 Note HNO ID: [id number] Author: CRISTINE BENAVIDES RDMS Service: ? Author Type: Supervisor Water Softener Service Type: Progress Notes Filed: 10/10/2024 16:10 Note Text: Radiology Service Progress Note PATIENT NAME: Jazz Coy DATE OF SERVICE: October 10, 2024 TIME: 4:10 PM PATIENT IDENTITY VERIFICATION COMPLETED USING TWO (2) IDENTIFIERS: Name and Date of confirmed by patient verbally. FALL SCREENING: Has the patient had 2 falls in the last year or 1 fall with injury or currently using an Ambulatory Assistive Device (Walker, Cane, Wheelchair, Crutches, etc.)? No PATIENT GENDER DATA: Assigned female at . status: : No status: NO. PATIENT RELEVANT IMPLANT DATA REVIEWED: Not Applicable PATIENT PRESENTS WITH AN IMPLANTABLE OR ATTACHED SURVEILLANCE INVESTIGATOR: No RADIOLOGY DEPARTMENT: Ultrasound PERIPHERAL IV DATA: Not applicable SIGNED BY: Cristine Benavides RDMS October 10, 2024 4:10 PM [facility] 09-28-2024 History of Presen t illness Narrative Radiology Service Progress Note PATIENT NAME: Jazz Coy DATE OF SERVICE: September 28, 2024 TIME: 2:30 PM PATIENT IDENTITY VERIFICATION COMPLETED USING TWO (2) IDENTIFIERS: Name and Date of confirmed by patient verbally. FALL SCREENING: Has the patient had 2 falls in the last year or 1 fall with injury or currently using an Ambulatory Assistive Device (Walker, Cane, Wheelchair, Crutches, etc.)? No PATIENT GENDER DATA: Assigned female at . status: : No status: NO. PATIENT RELEVANT IMPLANT DATA REVIEWED: Not Applicable PATIENT PRESENTS WITH AN IMPLANTABLE OR ATTACHED SURVEILLANCE INVESTIGATOR: No RADIOLOGY DEPARTMENT: Mammography PERIPHERAL IV DATA: Not applicable SIGNED BY: Sebastian Mcmahon September 28, 2024 2:30 PM documented in this encounter [facility] 09-28-2024 Note HNO ID: [id number] Author: PETTY FERRER Mammo Tech Service: ? Author Type: Supervisor Water Softener Service Type: Progress Notes Filed: 09/28/2024 14:30 Note Text: Radiology Service Progress Note PATIENT NAME: Jazz Coy DATE OF SERVICE: September 28, 2024 TIME: 2:30 PM PATIENT IDENTITY VERIFICATION COMPLETED USING TWO (2) IDENTIFIERS: Name and Date of confirmed by patient verbally. FALL SCREENING: Has the patient had 2 falls in the last year or 1 fall with injury or currently using an Ambulatory Assistive Device (Walker, Cane, Wheelchair, Crutches, etc.)? No PATIENT GENDER DATA: Assigned female at . status: : No status: NO. PATIENT RELEVANT IMPLANT DATA REVIEWED: Not Applicable PATIENT PRESENTS WITH AN IMPLANTABLE OR ATTACHED SURVEILLANCE INVESTIGATOR: No RADIOLOGY DEPARTMENT: Mammography PERIPHERAL IV DATA: Not applicable SIGNED BY: Sebastian Mcmahon September 28, 2024 2:30 PM [facility] 09-28-2024 Note HNO ID: [id number] Author: DANAE BAR APRN.SNOW REMOVAL/PLOWING Service: ? Author Type: Nurse Practitioner Type: Progress Notes Filed: 09/28/2024 15:07 Note Text: Patient declined professor of communication and writingAranza Schulz is a 53 year old who presents for an annual gynecologic exam without complaints. Postmenopausal: No. Menstrual cycle every 45, irregular with 4-5 days flow. HRT use: No. 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 Pap smear (cervix),lgsil Essential hypertension High cholesterol Undiagnosed cardiac murmurs PAST SURGICAL HISTORY Procedure Laterality Date COLPOSCOPY CERVIX UPPER/ADJACENT VAGINA 1995,2009, Colposcopy UNSPECIFIED ORAL SURGERY PROCEDURE, BY REPORT WISDOM TEETH EXTRACTION FAMILY HISTORY Problem Relation Age of Onset Diabetes Mother Heart Mother CHF Thyroid Mother Cancer Father LUNG CANCER Thyroid Maternal Grandmother Heart Maternal Grandmother CHF Emphysema Maternal Grandfather Breast Cancer Maternal Aunt Heart Maternal Aunt CHF SOCIAL HISTORY Social History Tobacco Use Smoking status: Never Passive exposure: Never Smokeless tobacco: Never Vaping Use Vaping status: Never Used Substance Use Topics Alcohol use: Yes Comment: occasionally,NOT WHILE Drug use: No REVIEW OF SYSTEMS Abdomen: No abdominal pain, nausea, vomiting, diarrhea, or constipation. No bloating, early satiety, indigestion, or increased flatulence. Bladder: No dysuria, gross hematuria, urinary frequency, urinary urgency, or incontinence Breast: No breast lumps, nipple d/c, overlying skin changes, redness or skin retraction Allergies and current medication updated:Yes SENSITIVE EXAM: The sensitive examination was discussed with the Patient or Patient's Authorized Assurance Senior. As applicable, any other physician, advance practice provider, medical student, or other health professional student that will be observing or involved in the sensitive examination for educational or training purposes was discussed with the Patient or Authorized Assurance Senior. The Patient or Authorized Assurance Senior has agreed to proceed with the sensitive examination. (Sensitive examination includes inspection and/or palpation of the breasts, pelvis, prostate and anorectal regions). EXAM: BP 126/88 Ht 5' 5" (1.65m) Wt 177 lb 9.6 oz (80.6kg) LMP 09/18/2024 BMI 29.55 kg/(m2). GENERAL: pleasant, female in no apparent distress HEENT: Normocephalic, atraumatic, mucus membranes moist, and no lesions DERMATOLOGY: Normal, without lesions, non-icteric, and non-hirsute BREAST: soft, non-tender, symmetric, no dominant mass, normal nipple-areolar complex, no lymphadenopathy, and no nipple discharge CHEST: Normal inspiratory effort ABDOMEN: soft, non-tender, and no masses PELVIC: external genitalia normal, normal Bartholin's glands, urethra, [place]'s glands, no vulvar lesions, no cervical lesions, physiologic discharge present, normal appearing perineal body and perianal region BIMANUAL: uterus normal size, shape and consistency, no adnexal masses, and non-tender RECTOVAGINAL: deferred. NEURO: alert and oriented x3,exam grossly non-focal EXTREMITIES: normal ASSESSMENT/PLAN: 1) Health maintenance: Pap/HPV up to date. Mammogram ordered Mammogram up to date Nutrition, exercise and routine health maintenance exams reviewed. Calcium/Vitamin D supplementation information provided. 2) Follow up one year or sooner as needed Danae Bar APRN.[facility] 09-28-2024 History of Presen t illness Narrative 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 Jazz is a 53 year old who presents for an annual gynecologic exam without complaints. Postmenopausal: No. Menstrual cycle every 45, irregular with 4-5 days flow. HRT use: No. 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 Pap smear (cervix),lgsil Essential hypertension High cholesterol Undiagnosed cardiac murmurs PAST SURGICAL HISTORY Procedure Laterality Date COLPOSCOPY CERVIX UPPER/ADJACENT VAGINA 1995,2009, Colposcopy UNSPECIFIED ORAL SURGERY PROCEDURE, BY REPORT WISDOM TEETH EXTRACTION FAMILY HISTORY Problem Relation Age of Onset Diabetes Mother Heart Mother CHF Thyroid Mother Cancer Father LUNG CANCER Thyroid Maternal Grandmother Heart Maternal Grandmother CHF Emphysema Maternal Grandfather Breast Cancer Maternal Aunt Heart Maternal Aunt CHF SOCIAL HISTORY Social History Tobacco Use Smoking status: Never Passive exposure: Never Smokeless tobacco: Never Vaping Use Vaping status: Never Used Substance Use Topics Alcohol use: Yes Comment: occasionally,NOT WHILE Drug use: No REVIEW OF SYSTEMS Abdomen: No abdominal pain, nausea, vomiting, diarrhea, or constipation. No bloating, early satiety, indigestion, or increased flatulence. Bladder: No dysuria, gross hematuria, urinary frequency, urinary urgency, or incontinence Breast: No breast lumps, nipple d/c, overlying skin changes, redness or skin retraction Allergies and current medication updated:Yes SENSITIVE EXAM: The sensitive examination was discussed with the Patient or Patient's Authorized Assurance Senior. As applicable, any other physician, advance practice provider, medical student, or other health professional student that will be observing or involved in the sensitive examination for educational or training purposes was discussed with the Patient or Authorized Assurance Senior. The Patient or Authorized Assurance Senior has agreed to proceed with the sensitive examination. (Sensitive examination includes inspection and/or palpation of the breasts, pelvis, prostate and anorectal regions). EXAM: BP 126/88 Ht 5' 5" (1.65m) Wt 177 lb 9.6 oz (80.6kg) LMP 09/18/2024 BMI 29.55 kg/(m^2). GENERAL: pleasant, female in no apparent distress HEENT: Normocephalic, atraumatic, mucus membranes moist, and no lesions DERMATOLOGY: Normal, without lesions, non-icteric, and non-hirsute BREAST: soft, non-tender, symmetric, no dominant mass, normal nipple-areolar complex, no lymphadenopathy, and no nipple discharge CHEST: Normal inspiratory effort ABDOMEN: soft, non-tender, and no masses PELVIC: external genitalia normal, normal Bartholin's glands, urethra, [place]'s glands, no vulvar lesions, no cervical lesions, physiologic discharge present, normal appearing perineal body and perianal region BIMANUAL: uterus normal size, shape and consistency, no adnexal masses, and non-tender RECTOVAGINAL: deferred. NEURO: alert and oriented x3,exam grossly non-focal EXTREMITIES: normal ASSESSMENT/PLAN: 1) Health maintenance: Pap/HPV up to date. Mammogram ordered Mammogram up to date Nutrition, exercise and routine health maintenance exams reviewed. Calcium/Vitamin D supplementation information provided. 2) Follow up one year or sooner as needed Danae Bar APRN.LASHANDA documented in this encounter [facility] 03-15-2024 History of Presen t illness Narrative Patient Name: Jazz Coy PRIMARY CARE PHYSICIAN: Stone Torres MD Date of visit: March 15, 2024 COMMUNICATION WILL BE SENT VIA SHARED MEDICAL RECORDS OR US MAIL. Subjective: Jazz Coy is a 53 year old female who is known to this clinic and presents as follow up for pulmonary hypertension . Patient last seen back on 03/2023, in the interim patient continues to be doing great. Specifically denies any symptoms of exertion, even with intense exercise, no SOB, denies fevers, chills, NS, coughing, chest pain, pedal edema, syncope/presyncope, or any other acute respiratory complaints. Comes in today for follow up with regards to recent echocardiogram. In good spirits. In review (Documentation from prior appt on 03/2023): She is very active and exercises on elliptical 4-6x/week. No limitations in any activities. 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 Denies any chemical or occupational exposures Has no impressive tobacco use history. Has social ETOH use (minimal). Denies hx of cocaine or other illicit drug use. Denies hx of diet pill use. Denies any impressive hx of lung disease or heart disease. Family hx of CHF (mother, aunt, grandmother). Denies family hx of lung hypertension. Mother has history of VTE (has genetic predisposition). PMHx: PAST MEDICAL HISTORY Diagnosis Date Abnormal glandular Papanicolaou smear of cervix 04/19/2009 +HPV Abnormal glandular Papanicolaou smear of cervix Abn. Pap smear (cervix),lgsil Essential hypertension High cholesterol Undiagnosed cardiac murmurs MEDICATIONS: cetirizine (ZYRTEC) 10 mg tablet Take 10 mg by mouth as needed. levothyroxine (SYNTHROID) 25 mcg tablet TAKE 1 TABLET BY MOUTH EVERY DAY IN THE MORNING ON EMPTY STOMACH rosuvastatin (CRESTOR) 10 mg tablet Take 10 mg by mouth every other day. ergocalciferol, vitamin D2, (VITAMIN D2 ORAL) Take by mouth once daily. lisinopril (ZESTRIL, PRINIVIL) 10 mg tablet Take 7.5 mg by mouth once daily. MULTIVITAMIN (MULTIPLE VITAMIN ORAL) Take by mouth. fish oil/borage/flax/om3,6,9 1 (FISH,BORA,FLAX OILS-OM3,6,9NO1 ORAL) Take 1 mg by mouth. (Patient not taking: Reported on 03/15/2024) Allergies: Patient has no known allergies. PHYSICAL EXAM: BP 130/83 Pulse 76 Temp (Src) 97.4 (Temporal Artery) Resp 18 Ht 5' 5" (1.65m) Wt 183 lb 1.6 oz (83.1kg) SpO2 96% LMP 09/19/2023 BMI 30.47 kg/(m^2). Last Wt 03/15/24 83.1 kg (183 lb 1.6 oz) 09/27/23 78.7 kg (173 lb 9.6 oz) 06/29/23 78.7 kg (173 lb 8 oz) 04/09/23 77.1 kg (170 lb) General- nad, comfortable in general appearance Neck- supple, no obvious JVD CV- RRR, no M/G/R Resp- clear to auscultation bilaterally, no wheezes or crackles, breathing nonlabored Abd- +bs, soft, nt, nd Ext- no clubbing, cyanosis, or edema Psych- appropriate mood and affect Labs / Imaging / Diagnostic Studies: Diagnostic tests reviewed for today's visit, films/specimens were personally reviewed by me. PFTs 02/2022 (Within normal limits) FVC 4.75L FEV1 3.31L (127%) TLC 7.39L DlCO 121% CT Chest 02/2022 IMPRESSION: 1. No CT evidence of pulmonary hypertension. Main pulmonary artery is not enlarged. 2. Several small pulmonary nodules measuring up to 6 mm in greatest diameter. Based on the 2017 Fleischner Society guidelines, no follow is necessary if this patient is considered low risk for lung cancer. If the patient is considered high risk, a follow-up CHEST W/O CONTRAST (code: [id number]) is optional at 12 months. 3. Additional incidental findings, as above. PSG 2021: within normal limits (no SKYLAR noted) TTE 02/2024 CONCLUSIONS: - Exam indication: Re-evaluation of known pulmonary hypertension (to guide therapy) - The left ventricle is normal in size. There is no left ventricular hypertrophy. Left ventricular systolic function is normal. EF = 71 5% (2D biplane) Normal left ventricular diastolic function. - The right ventricle is normal in size. Right ventricular systolic function is normal. - There is mild (1+) tricuspid valve regurgitation. - Estimated right ventricular systolic pressure is 38 mmHg consistent with mild pulmonary hypertension. Estimated right atrial pressure is 3 mmHg based on IVC assessment. - Exam was compared with the prior echocardiographic exam performed on 01/15/23. RVSP was reported at 29 mmHG on previous study. TTE 12/2022 - The left ventricle is normal in size. Left ventricular systolic function is normal. EF = 63 5% (2D biplane) Normal left ventricular diastolic function. - The right ventricle is normal in size. Right ventricular systolic function is normal. - Negative agitated saline study performed in clips: 87, 88. Right ventricular systolic function is normal. RV systolic tissue Doppler velocity is 15.0 cm/s. Tricuspid annular displacement is 2.7 cm. Estimated right ventricular systolic pressure is 29 mmHg consistent with normal pulmonary artery pressures. Estimated right atrial pressure is 3 mmHg based on IVC assessment. The tricuspid valve leaflets are structurally normal. There is mild (1+) tricuspid valve regurgitation. The hepatic venous pattern showed normal systolic flow. TTE 06/2022 CONCLUSIONS: - Exam indication: Suspected pulmonary hypertension - The left ventricle is normal in size. Left ventricular systolic function is normal. EF = 66 5% (2D biplane) Normal left ventricular diastolic function. - The right ventricle is normal in size. Right ventricular systolic function is normal. - There is mild (1+) tricuspid valve regurgitation. - Estimated right ventricular systolic pressure is 34 mmHg consistent with normal pulmonary artery pressures. Estimated right atrial pressure is 3 mmHg based on IVC assessment. TTE 12/2021 (OSH) Intermediate LV diastolic function 1-2+ TR with RVSP 51 mmHg LVEF 75% Assessment: - Presence of mild TR on echocardiogram - Absence of respiratory symptoms or risk factors for PH - Lifelong non-smoker - Significant general/health associated anxiety Plan: - Overall, patient continues to remain asymptomatic and repeat TTE remains underwhelming with minimal TR. We discussed options including undergoing RHC for confirmatory evaluation vs ongoing serial echo for ongoing surveillance, if stable in 02/2025, given stability over > 2 years, doubt patient has any concerns for underlying PAH given lack of progression of symptoms or findings on echo - Recommend follow up after TTE in 02/2025 with follow up visit after No follow-ups on file. Sulaiman Whyte MD March 15, 2024 11:19 AM documented in this encounter [facility] 03-15-2024 Note HNO ID: [id number] Author: SULAIMAN WHYTE MD Service: ? Author Type: Physician Type: Progress Notes Filed: 03/15/2024 14:26 Note Text: Patient Name: Jazz Coy PRIMARY CARE PHYSICIAN: Stone Torres MD Date of visit: March 15, 2024 COMMUNICATION WILL BE SENT VIA SHARED MEDICAL RECORDS OR US MAIL. Subjective: Jazz Coy is a 53 year old female who is known to this clinic and presents as follow up for pulmonary hypertension . Patient last seen back on 03/2023, in the interim patient continues to be doing great. Specifically denies any symptoms of exertion, even with intense exercise, no SOB, denies fevers, chills, NS, coughing, chest pain, pedal edema, syncope/presyncope, or any other acute respiratory complaints. Comes in today for follow up with regards to recent echocardiogram. In good spirits. In review (Documentation from prior appt on 03/2023): She is very active and exercises on elliptical 4-6x/week. No limitations in any activities. 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 Denies any chemical or occupational exposures Has no impressive tobacco use history. Has social ETOH use (minimal). Denies hx of cocaine or other illicit drug use. Denies hx of diet pill use. Denies any impressive hx of lung disease or heart disease. Family hx of CHF (mother, aunt, grandmother). Denies family hx of lung hypertension. Mother has history of VTE (has genetic predisposition). PMHx: PAST MEDICAL HISTORY Diagnosis Date Abnormal glandular Papanicolaou smear of cervix 04/19/2009 +HPV Abnormal glandular Papanicolaou smear of cervix Abn. Pap smear (cervix),lgsil Essential hypertension High cholesterol Undiagnosed cardiac murmurs MEDICATIONS: cetirizine (ZYRTEC) 10 mg tablet Take 10 mg by mouth as needed. levothyroxine (SYNTHROID) 25 mcg tablet TAKE 1 TABLET BY MOUTH EVERY DAY IN THE MORNING ON EMPTY STOMACH rosuvastatin (CRESTOR) 10 mg tablet Take 10 mg by mouth every other day. ergocalciferol, vitamin D2, (VITAMIN D2 ORAL) Take by mouth once daily. lisinopril (ZESTRIL, PRINIVIL) 10 mg tablet Take 7.5 mg by mouth once daily. MULTIVITAMIN (MULTIPLE VITAMIN ORAL) Take by mouth. fish oil/borage/flax/om3,6,9 1 (FISH,BORA,FLAX OILS-OM3,6,9NO1 ORAL) Take 1 mg by mouth. (Patient not taking: Reported on 03/15/2024) Allergies: Patient has no known allergies. PHYSICAL EXAM: BP 130/83 Pulse 76 Temp (Src) 97.4 (Temporal Artery) Resp 18 Ht 5' 5" (1.65m) Wt 183 lb 1.6 oz (83.1kg) SpO2 96% LMP 09/19/2023 BMI 30.47 kg/(m2). Last Wt 03/15/24 83.1 kg (183 lb 1.6 oz) 09/27/23 78.7 kg (173 lb 9.6 oz) 06/29/23 78.7 kg (173 lb 8 oz) 04/09/23 77.1 kg (170 lb) General- nad, comfortable in general appearance Neck- supple, no obvious JVD CV- RRR, no M/G/R Resp- clear to auscultation bilaterally, no wheezes or crackles, breathing nonlabored Abd- +bs, soft, nt, nd Ext- no clubbing, cyanosis, or edema Psych- appropriate mood and affect Labs / Imaging / Diagnostic Studies: Diagnostic tests reviewed for today's visit, films/specimens were personally reviewed by me. PFTs 02/2022 (Within normal limits) FVC 4.75L FEV1 3.31L (127%) TLC 7.39L DlCO 121% CT Chest 02/[address]: 1[address] evidence of pulmonary hypertension. Main pulmonary artery is not enlarged. 2. Several small pulmonary nodules measuring up to 6 mm in greatest diameter. Based on the 2017 Fleischner Society guidelines, no follow is necessary if this patient is considered low risk for lung cancer. If the patient is considered high risk, a follow-up CHEST W/O CONTRAST (code: [id number]) is optional at 12 months. 3. Additional incidental findings, as above. PSG 2021: within normal limits (no SKYLAR noted) TTE 02/2024 CONCLUSIONS: - Exam indication: Re-evaluation of known pulmonary hypertension (to guide therapy) - The left ventricle is normal in size. There is no left ventricular hypertrophy. Left ventricular systolic function is normal. EF = 71 ? 5% (2D biplane) Normal left ventricular diastolic function. - The right ventricle is normal in size. Right ventricular systolic function is normal. - There is mild (1+) tricuspid valve regurgitation. - Estimated right ventricular systolic pressure is 38 mmHg consistent with mild pulmonary hypertension. Estimated right atrial pressure is 3 mmHg based on IVC assessment. - Exam was compared with the prior CC echocardiographic exam performed on 01/15/23. RVSP was reported at 29 mmHG on previous study. TTE 12/2022 - The left ventricle is normal in size. Left ventricular systolic function is normal. EF = 63 ? 5% (2D biplane) Normal left ventricular diastolic function. - The right ventricle is normal in size. Right ventricular systolic function is normal. - Negative agitated saline study performed in clips: 87, 88. Right ventricular systolic function is normal. RV (more content not included)... [facility] 03-03-2024 Note CONCLUSIONS: - Exam indication: Re-evaluation of known pulmonary hypertension (to guide therapy) - The left ventricle is normal in size. There is no left ventricular hypertrophy. Left ventricular systolic function is normal. EF = 71 5% (2D biplane) Normal left ventricular diastolic function. - The right ventricle is normal in size. Right ventricular systolic function is normal. - There is mild (1+) tricuspid valve regurgitation. - Estimated right ventricular systolic pressure is 38 mmHg consistent with mild pulmonary hypertension. Estimated right atrial pressure is 3 mmHg based on IVC assessment. - Exam was compared with the prior CC echocardiographic exam performed on 01/15/23. RVSP was reported at 29 mmHG on previous study. * * * Final * * * [facility] 10-02-2023 Note Formatting of this n ote might be different from the original. October 04, 2023 PID: [id number] Jazz Coy [address] [place] [address] Dear Ms. Candelario Coy, We are pleased to inform you that the results of your recent breast imaging exam on 09/27/2023 are normal. Your mammogram demonstrates that you have dense breast tissue, which could hide abnormalities. Dense breast tissue, in and of itself, is a relatively common condition. Therefore, this information is not provided to cause undue concern; rather, it is to raise your awareness and promote discussion with your health care provider regarding the presence of dense breast tissue in addition to other risk factors. Early detection of cancer is very important. We also understand recommendations regarding breast cancer screening are controversial. Please discuss with your primary care provider which strategy is best for you and whether a mammogram is right for you. Your imaging studies and report will be kept on file at [facility] as part of your permanent medical record and are available for your continuing care. Thank you for allowing us to help in meeting your health care needs. Sincerely, Dr. Decker Interpreting Radiologist [facility] (Normal over 40) [facility] 10-02-2023 Miscellaneous Notes October 04, 2023 PID: [id number] Jazz Coy [address] [place] [address] Dear Ms. Candelario Coy, We are pleased to inform you that the results of your recent breast imaging exam on 09/27/2023 are normal. Your mammogram demonstrates that you have dense breast tissue, which could hide abnormalities. Dense breast tissue, in and of itself, is a relatively common condition. Therefore, this information is not provided to cause undue concern; rather, it is to raise your awareness and promote discussion with your health care provider regarding the presence of dense breast tissue in addition to other risk factors. Early detection of cancer is very important. We also understand recommendations regarding breast cancer screening are controversial. Please discuss with your primary care provider which strategy is best for you and whether a mammogram is right for you. Your imaging studies and report will be kept on file at [facility] as part of your permanent medical record and are available for your continuing care. Thank you for allowing us to help in meeting your health care needs. Sincerely, Dr. Decker Interpreting Radiologist [facility] (Normal over 40) documented in this encounter [facility] 09-27-2023 History of Presen t illness Narrative Extruder Tender offered: Patient declines. Jazz is a 52 year old who presents for an annual gynecologic exam without complaints. Postmenopausal: No. Menstrual cycle every 25-30 days Flow 3 days light flow HRT use: No. 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 Pap smear (cervix),lgsil Essential hypertension High cholesterol Undiagnosed cardiac murmurs PAST SURGICAL HISTORY Procedure Laterality Date COLPOSCOPY CERVIX UPPER/ADJACENT VAGINA 1995,2009, Colposcopy UNSPECIFIED ORAL SURGERY PROCEDURE, BY REPORT WISDOM TEETH EXTRACTION FAMILY HISTORY Problem Relation Age of Onset Diabetes Mother Heart Mother CHF Thyroid Mother Cancer Father LUNG CANCER Thyroid Maternal Grandmother Heart Maternal Grandmother CHF Emphysema Maternal Grandfather Breast Cancer Maternal Aunt Heart Maternal Aunt CHF SOCIAL HISTORY Social History Tobacco Use Smoking status: Never Passive exposure: Never Smokeless tobacco: Never Vaping Use Vaping Use: Never used Substance Use Topics Alcohol use: Yes Comment: occasionally,NOT WHILE Drug use: No REVIEW OF SYSTEMS Abdomen: No abdominal pain, nausea, vomiting, diarrhea, or constipation. No bloating, early satiety, indigestion, or increased flatulence. Bladder: No dysuria, gross hematuria, urinary frequency, urinary urgency, or incontinence Breast: No breast lumps, nipple d/c, overlying skin changes, redness or skin retraction Allergies and current medication updated:Yes EXAM: Ht 5' 5" (1.65m) Wt 173 lb 9.6 oz (78.7kg) LMP 09/19/2023 BMI 28.89 kg/(m^2). GENERAL: pleasant, female in no apparent distress HEENT: Normocephalic, atraumatic, mucus membranes moist, and no lesions NECK: Supple, full range of motion, no adenopathy, and thyroid normal DERMATOLOGY: Normal, without lesions, non-icteric, and non-hirsute BREAST: soft, non-tender, symmetric, no dominant mass, normal nipple-areolar complex, no lymphadenopathy, and no nipple discharge CHEST: Normal inspiratory effort ABDOMEN: soft, non-tender, and no masses PELVIC: external genitalia normal, normal Bartholin's glands, urethra, [place]'s glands, no vulvar lesions, no cervical lesions, physiologic discharge present, normal appearing perineal body and perianal region BIMANUAL: uterus normal size, shape and consistency, no adnexal masses, and non-tender RECTOVAGINAL: deferred. NEURO: alert and oriented x3,exam grossly non-focal EXTREMITIES: normal ASSESSMENT/PLAN: 1) Health maintenance: Pap/HPV up to date. Mammogram ordered Mammogram up to date Nutrition, exercise and routine health maintenance exams reviewed. Calcium/Vitamin D supplementation information provided. Colon cancer screening: patient to discuss with PCP 2) Follow up one year or sooner as needed Danae Bar APRN.CNP documented in this encounter [facility] 09-27-2023 History of Presen t illness Narrative Radiology Service Progress Note PATIENT NAME: Jazz Cyo DATE OF SERVICE: September 27, 2023 TIME: 3:12 PM PATIENT IDENTITY VERIFICATION COMPLETED USING TWO (2) IDENTIFIERS: Name and Date of confirmed by patient verbally. FALL SCREENING: Has the patient had 2 falls in the last year or 1 fall with injury or currently using an Ambulatory Assistive Device (Walker, Cane, Wheelchair, Crutches, etc.)? No PATIENT GENDER DATA: Female. status: : No status: NO. PATIENT RELEVANT IMPLANT DATA REVIEWED: Not Applicable PATIENT PRESENTS WITH AN IMPLANTABLE OR ATTACHED SURVEILLANCE INVESTIGATOR: No RADIOLOGY DEPARTMENT: Mammography PERIPHERAL IV DATA: Not applicable SIGNED BY: Sebastian Mcmahon September 27, 2023 3:12 PM documented in this encounter [facility] 09-17-2023 Telephone encounter Note Last 2 office visits and Echo with Dr. Whyte was requested from [facility] [place], [place]. Today I faxed that information over to this fax number ([phone]. [facility] 09-17-2023 Miscellaneous Notes Last 2 office visits and Echo with Dr. Whyte was requested from [facility] [place], [place]. Today I faxed that information over to this fax number [phone]. documented in this encounter [facility] 06-29-2023 History of Presen t illness Narrative Subjective Sore Throat Associated symptoms include congestion. Pertinent negatives include no coughing or ear pain. Jazz Coy is a 52 year old female who presents with sore throat x 2 days. Rates pain 4/10. She has a fever today. Has had some nasal drainage today She took tylenol at home. 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 Review of Systems Constitutional: Positive for chills and fever. Negative for malaise/fatigue. HENT: Positive for congestion and sore throat. Negative for ear pain. Respiratory: Negative for cough. Cardiovascular: Negative. Musculoskeletal: Negative for myalgias. BP 120/80 Pulse 108 Temp 37.8 C (100.1 F) Resp 20 Wt 78.7 kg (173 lb 8 oz) LMP 09/11/2022 SpO2 98% BMI 28.87 kg/m PAST MEDICAL HISTORY Diagnosis Date Abnormal glandular Papanicolaou smear of cervix 04/19/2009 +HPV Abnormal glandular Papanicolaou smear of cervix Abn. Pap smear (cervix),lgsil Essential hypertension High cholesterol Undiagnosed cardiac murmurs PAST SURGICAL HISTORY Procedure Laterality Date COLPOSCOPY CERVIX UPPER/ADJACENT VAGINA 1995,2009, Colposcopy UNSPECIFIED ORAL SURGERY PROCEDURE, BY REPORT WISDOM TEETH EXTRACTION ALLERGIES Patient has no known allergies. MEDICATIONS fish oil/borage/flax/om3,6,9 1 (FISH,BORA,FLAX OILS-OM3,6,9NO1 ORAL)^Take 1 mg by mouth.^Disp: ^Rfl: levothyroxine (SYNTHROID) 25 mcg tablet^TAKE 1 TABLET BY MOUTH EVERY DAY IN THE MORNING ON EMPTY STOMACH^Disp: ^Rfl: rosuvastatin (CRESTOR) 10 mg tablet^TAKE 1 TABLET BY MOUTH EVERYDAY AT BEDTIME^Disp: ^Rfl: ergocalciferol, vitamin D2, (VITAMIN D2 ORAL)^Take by mouth.^Disp: ^Rfl: lisinopril (ZESTRIL, PRINIVIL) 10 mg tablet^Take 5 mg by mouth once daily. 5 mg daily^Disp: ^Rfl: 2 MULTIVITAMIN (MULTIPLE VITAMIN ORAL)^Take by mouth.^Disp: ^Rfl: amoxicillin (AMOXIL) 500 mg capsule^Take 1 capsule by mouth two times a day for 10 days.^Disp: 20 capsule^Rfl: 0 FAMILY HISTORY Problem Relation Age of Onset Cancer Father LUNG CANCER Diabetes Mother Heart Mother CHF Thyroid Mother Thyroid Maternal Grandmother Heart Maternal Grandmother CHF Emphysema Maternal Grandfather Breast Cancer Maternal Aunt Heart Maternal Aunt CHF Social History Tobacco Use Smoking status: Never Smokeless tobacco: Never Vaping Use Vaping Use: Never used Substance Use Topics Alcohol use: Yes Comment: occasionally,NOT WHILE Drug use: No Objective Physical Exam Vitals and nursing note reviewed. Constitutional: General: She is not in acute distress. Appearance: Normal appearance. She is not ill-appearing. HENT: Right Ear: Tympanic membrane, ear canal and external ear normal. Left Ear: Tympanic membrane, ear canal and external ear normal. Nose: Nose normal. Mouth/Throat: Mouth: Mucous membranes are moist. Pharynx: Oropharynx is clear. Uvula midline. No oropharyngeal exudate or posterior oropharyngeal erythema. Cardiovascular: Rate and Rhythm: Normal rate and regular rhythm. Heart sounds: Normal heart sounds. Pulmonary: Effort: Pulmonary effort is normal. No respiratory distress. Breath sounds: Normal breath sounds. No wheezing or rales. Musculoskeletal: Cervical back: Neck supple. Lymphadenopathy: Cervical: No cervical adenopathy. Skin: General: Skin is warm and dry. Findings: No erythema or rash. Neurological: Mental Status: She is alert. ASSESSMENT/PLAN: 1. Strep throat - ICD9: 034.0, ICD10: J02.0 - Group A strep molecular testing positive - Amoxicillin for 10 days. - Discussed supportive care treatment with fluids, rest and analgesia. - The patient may also use warm salt water gargles, throat lozenges and/or OTC throat spray as needed. - Contagious dz precautions discussed- including considered contagious until on antibiotics for 24 hours - Call back if drooling, increased temperature, symptoms of dehydration and/or still sick in one week - AMOXICILLIN 500 MG CAPSULE - Follow-up with your PCP in 3-5 days if symptoms have not improved or sooner if symptoms worsen - Discussed red flags and need for immediate medical evaluation if any occur. - Discussed supportive care treatment with fluids, rest and analgesia. - Discussed expected course of illness Rina Puckett APRN.LASHANDA documented in this encounter [facility] 06-29-2023 Instructions Rina Puckett APRN.LASHANDA - 06/29/2023 6:40 PM EDT ASSESSMENT/PLAN: 1. Strep throat - ICD9: 034.0, ICD10: J02.0 - Group A strep molecular testing positive - Amoxicillin for 10 days. - Discussed supportive care treatment with fluids, rest and analgesia. - The patient may also use warm salt water gargles, throat lozenges and/or OTC throat spray as needed. - Contagious dz precautions discussed- including considered contagious until on antibiotics for 24 hours - Call back if drooling, increased temperature, symptoms of dehydration and/or still sick in one week - AMOXICILLIN 500 MG CAPSULE - Follow-up with your PCP in 3-5 days if symptoms have not improved or sooner if symptoms worsen - Discussed red flags and need for immediate medical evaluation if any occur. - Discussed supportive care treatment with fluids, rest and analgesia. - Discussed expected course of illness Rina Puckett APRN.CNP STREP INFECTIONS: Streptococcal bacteria can cause a sore throat, ear and sinus infections, and skin diseases. Strep throat is diagnosed by a special throat swab or culture test. These infections require either an antibiotic shot or an oral antibiotic medicine to get rid of all the bacteria and prevent rheumatic fever, a dangerous complication. The symptoms of Strep infection, however, usually get better after just 2-3 days of drug treatment. These infections are very contagious; any close contacts who have a fever, sore throat, or illness symptoms should see their doctor right away. Strep is no longer contagious after 24 hours of antibiotic treatment so you may return to school or work if your fever and pain are better in one day. Strep infections can cause serious complications including throat abscess, rheumatic fever and kidney disease, so be sure to take all your antibiotic medicine. See your doctor or return here if your symptoms worsen or are not improved in 3 days or for difficulty breathing or inability to swallow. documented in this encounter [facility] 01-18-2023 Miscellaneous Notes Images from the original note were not included. Sulaiman Whyte MD P [facility] Nurse Pool Please notify patient that I reviewed her echocardiogram and there again appears to be no evidence of pulmonary hypertension. This is good news. We can repeat another echo in a year if she would like. Can discuss during her next visit with me AC Pt notified of results, verbalized understanding. Maribell Courtney RN documented in this encounter [facility] 11-20-2022 History of Presen t illness Narrative Patient Name: Jazz Coy PRIMARY CARE PHYSICIAN: Stone Torres MD Date of visit: November 20, 2022 COMMUNICATION WILL BE SENT VIA SHARED MEDICAL RECORDS OR US MAIL. Subjective: Jazz Coy is a 52 year old female who is new to this clinic for evaluation of pulmonary hypertension. This is a referral from Dr Cooney in [place], [place] for further evaluation of this. Her story starts back in 11/2021 for high heart rate in which she felt palpitations. She doesn't recall what they found in the ED, but she was not admitted to hospital. She was subsequently referred to cardiology and pulmonary for further evaluation. From what I can tell she has underwent a number of tests including CXR, PFTs, ambulatory evalution, and CT chest of her lungs which was unremarkable with exception of echocardiograms which showed concerns for pulmonary hypertension. She was subsequently referred here for further evaluation. She denies shortness of breath, exertional dyspnea, pedal edema, lightheadedness, syncope, chest pain, weight gain, weight loss, fevers, chills, or NS. She is very active and exercises on elliptical 4-6x/week. No limitations in any activities. 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 Denies any chemical or occupational exposures Has no impressive tobacco use history. Has social ETOH use (minimal). Denies hx of cocaine or other illicit drug use. Denies hx of diet pill use. Denies any impressive hx of lung disease or heart disease. Family hx of CHF (mother, aunt, grandmother). Denies family hx of lung hypertension. Mother has history of VTE (has genetic predisposition). QUESTIONS SURROUNDING PULMONARY HYPERTENSION RISK: Prior diet pill use? No Prior use of amphetamines? No H/o DVT or PE? No Prior liver disease? No Prior HIV/Hepatitis B or C risk?No H/o splenectomy? No Prior thyroid disease? Yes - Hyperthyroidism Prior lung disease? No Family h/o PAH? No Snoring or witnessed apneas? No Arthralgias? No Skin rash or lesions? No Raynaud's symptoms? No PMHx: PAST MEDICAL HISTORY Diagnosis Date Abnormal glandular Papanicolaou smear of cervix 04/19/2009 +HPV Abnormal glandular Papanicolaou smear of cervix Abn. Pap smear (cervix),lgsil Essential hypertension High cholesterol Undiagnosed cardiac murmurs MEDICATIONS: levothyroxine (SYNTHROID) 25 mcg tablet^TAKE 1 TABLET BY MOUTH EVERY DAY IN THE MORNING ON EMPTY STOMACH^Disp: ^Rfl: rosuvastatin (CRESTOR) 10 mg tablet^TAKE 1 TABLET BY MOUTH EVERYDAY AT BEDTIME^Disp: ^Rfl: ergocalciferol, vitamin D2, (VITAMIN D2 ORAL)^Take by mouth.^Disp: ^Rfl: lisinopril (ZESTRIL, PRINIVIL) 10 mg tablet^Take 5 mg by mouth once daily. 5 mg daily^Disp: ^Rfl: 2 MULTIVITAMIN (MULTIPLE VITAMIN ORAL)^Take by mouth.^Disp: ^Rfl: Allergies: Patient has no known allergies. ROS: GENERAL: (-) fevers, (-) chills, (-) night sweats, (-) nausea/vomiting, (-) weight loss, (-) weight gain HEENT: (-) runny nose, (-) sore throat, (-) post-nasal drip RESPIRATORY: As above in subjective CARDIOVASCULAR: (-) chest pain, (-) palpitations, (-) LE edema. All other 10 point ROS reviewed and negative except for that mentioned above. PHYSICAL EXAM: BP 134/82 Pulse 78 Temp (Src) 98 (Temporal Artery) Resp 20 Ht 5' 5" (1.65m) Wt 159 lb 8 oz (72.3kg) SpO2 99% LMP 09/11/2022 BMI 26.54 kg/(m^2). General- nad, comfortable in general appearance Eyes- eomi, perrl ENT- oropharynx clear, atraumatic Neck- supple, no obvious JVD CV- RRR, no M/G/R Resp- clear to auscultation bilaterally, no wheezes or crackles, breathing nonlabored Abd- +bs, soft, nt, nd Ext- no clubbing, cyanosis, or edema`1 Derm- no lesions/rashes Psych- appropriate mood and affect Labs / Imaging / Diagnostic Studies: Diagnostic tests reviewed for today's visit, films/specimens were personally reviewed by me. PFTs 02/2022 (Within normal limits) FVC 4.75L FEV1 3.31L (127%) TLC 7.39L DlCO 121% CT Chest 02/2022 IMPRESSION: 1. No CT evidence of pulmonary hypertension. Main pulmonary artery is not enlarged. 2. Several small pulmonary nodules measuring up to 6 mm in greatest diameter. Based on the 2017 Fleischner Society guidelines, no follow is necessary if this patient is considered low risk for lung cancer. If the patient is considered high risk, a follow-up CHEST W/O CONTRAST (code: [id number]) is optional at 12 months. 3. Additional incidental findings, as above. PSG 2021: within normal limits (no SKYLAR noted) TTE 12/2021 ([facility]) Intermediate LV diastolic function 1-2+ TR with RVSP 51 mmHg LVEF 75% TTE 06/2022 CONCLUSIONS: - Exam indication: Suspected pulmonary hypertension - The left ventricle is normal in size. Left ventricular systolic function is normal. EF = 66 5% (2D biplane) Normal left ventricular diastolic function. - The right ventricle is normal in size. Right ventricular systolic function is normal. - There is mild (1+) tricuspid valve regurgitation. - Estimated right ventricular systolic pressure is 34 mmHg consistent with normal pulmonary artery pressures. Estimated right atrial pressure is 3 mmHg based on IVC assessment. Assessment: - Presence of mild TR with concerns of presence of pulmonary hypertension - Absence of respiratory symptoms or risk factors for PH - Lifelong non-smoker - Significant general/health associated anxiety Plan: - Patient referred here for evaluation of possible pulmonary hypertension. Look at reports from OSH, TTE has been suggestive of underlying PH given degree of TR (RVSP 51 mmHg). Repeat [facility] shows less impressive results with minimal TR and reported RVSP < 35 mmHg. - Overall, patient remains asymptomatic and has no personal or clinical risk factors for development of PH. - We discussed options, including 1) ongoing serial TTE for ongoing surveillance of worsening TR. If indeed patient develops worsening TR (rise in estimated RVSP) at any point, recommend pursuing RHC for further evaluation. 2) Another option is pursuing RHC at this time for reassurance. Overall, we discussed risks/benefits of both approachs. I expressed that I recommend consideration of early RHC for reassurance as patient has had significant anxiety over this situation now for almost 1 year now. However, patient defers and requests serial echo for ongoing surveillance. - I discussed with patient that I have some suspicion that her RVSP maybe reflective of significant elevations in her systemic BP during her echo, given her severe anxiety. In other words, I suspect patient's BP is very elevated during these procedures and this might be reflected in her echo. - Continue BP management as per patients PCP - Educated on mindfulness and medication this visit as means to help her anxiety. - Obtain echo in 1 month (6 months from prior [facility]) - Recommend follow up in 3 months I spent a total of 60 minutes on the date of the service which included preparing to see the patient, [id number] patient care, completing clinical documentation, obtaining and/or reviewing separately obtained history, performing a medically appropriate examination, counseling and educating the patient/family/caregiver, ordering medications, tests, or procedures, communicating with other HCPs (not separately reported), independently interpreting results (not separately reported), communicating results to the patient/family/caregiver and care coordination (not separately reported). Return in about 3 months (around 02/20/2023). documented in this encounter [facility] 08-24-2022 Miscellaneous Notes August 25, 2022 PID: [id number] Jazz Coy [address] [place] [address] Dear Ms. Candelario Coy, We are pleased to inform you that the results of your recent breast imaging exam on 08/21/2022 are normal. Your mammogram demonstrates that you have dense breast tissue, which could hide abnormalities. Dense breast tissue, in and of itself, is a relatively common condition. Therefore, this information is not provided to cause undue concern; rather, it is to raise your awareness and promote discussion with your health care provider regarding the presence of dense breast tissue in addition to other risk factors. Early detection of cancer is very important. We also understand recommendations regarding breast cancer screening are controversial. Please discuss with your primary care provider which strategy is best for you and whether a mammogram is right for you. Your imaging studies and report will be kept on file at [facility] as part of your permanent medical record and are available for your continuing care. Thank you for allowing us to help in meeting your health care needs. Sincerely, Dr. Meyers Interpreting Radiologist [facility] (Normal over 40) documented in this encounter [facility] 08-21-2022 History of Presen t illness Narrative Radiology Service Progress Note PATIENT NAME: Jazz Coy DATE OF SERVICE: August 21, 2022 TIME: 8:31 AM PATIENT IDENTITY VERIFICATION COMPLETED USING TWO (2) IDENTIFIERS: Name and Date of confirmed by patient verbally. FALL SCREENING: Has the patient had 2 falls in the last year or 1 fall with injury or currently using an Ambulatory Assistive Device (Walker, Cane, Wheelchair, Crutches, etc.)? No PATIENT GENDER DATA: Female. status: : No status: NO. PATIENT RELEVANT IMPLANT DATA REVIEWED: Not Applicable RADIOLOGY DEPARTMENT: Mammography PERIPHERAL IV DATA: Not applicable SIGNED BY: RT Roberto(Keaton) August 21, 2022 8:31 AM documented in this encounter [facility] 05-15-2022 History of Presen t illness Narrative Patient with worsening RVSP on echocardiogram. Recommend repeat echo in 6 months (06/2022) documented in this encounter [facility] 08-15-2021 Miscellaneous Notes August 15, 2021 PID: [id number] Jazz Coy [address] [place] [address] Dear Ms. Candelario Coy, We are pleased to inform you that the results of your recent breast imaging exam on 08/15/2021 are normal. Your mammogram demonstrates that you have dense breast tissue, which could hide abnormalities. Dense breast tissue, in and of itself, is a relatively common condition. Therefore, this information is not provided to cause undue concern; rather, it is to raise your awareness and promote discussion with your health care provider regarding the presence of dense breast tissue in addition to other risk factors. Early detection of cancer is very important. We also understand recommendations regarding breast cancer screening are controversial. Please discuss with your primary care provider which strategy is best for you and whether a mammogram is right for you. Your imaging studies and report will be kept on file at [facility] as part of your permanent medical record and are available for your continuing care. Thank you for allowing us to help in meeting your health care needs. Sincerely, Dr. Quintero Interpreting Radiologist [facility] (Normal over 40) documented in this encounter [facility] 08-15-2021 History of Presen t illness Narrative Jazz is a 50 year old who presents for an annual gynecologic exam without complaints. Menses: regular but very light. 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 Pap smear (cervix),lgsil Undiagnosed cardiac murmurs PAST SURGICAL HISTORY Procedure Laterality Date COLPOSCOPY (VAGINOSCOPY) 1995,2009,14 Colposcopy UNSPECIFIED ORAL SURGERY PROCEDURE, BY REPORT WISDOM TEETH EXTRACTION FAMILY HISTORY Problem Relation Age of Onset Cancer Father LUNG CANCER Diabetes Mother Heart Mother CHF Thyroid Mother Thyroid Maternal Grandmother Heart Maternal Grandmother CHF Emphysema Maternal Grandfather Breast Cancer Maternal Aunt Heart Maternal Aunt CHF SOCIAL HISTORY Social History Tobacco Use Smoking status: Never Smoker Smokeless tobacco: Never Used Substance Use Topics Alcohol use: Yes Comment: occasionally,NOT WHILE Drug use: No REVIEW OF SYSTEMS Abdomen: No abdominal pain, nausea, vomiting, diarrhea, or constipation. No bloating, early satiety, indigestion, or increased flatulence. Bladder: No dysuria, gross hematuria, urinary frequency, urinary urgency, or incontinence. Breast: No breast lumps, nipple d/c, overlying skin changes, redness or skin retraction. Allergies and current medication updated:Yes EXAM: LMP 06/16/2019 GENERAL: pleasant, female in no apparent distress HEENT: Normocephalic, atraumatic, mucus membranes moist and no lesions NECK: Supple, full range of motion, no adenopathy and thyroid normal DERMATOLOGY: Normal, without lesions, non-icteric and non-hirsute BREAST: soft, non-tender, symmetric, no dominant mass, normal nipple-areolar complex, no lymphadenopathy and no nipple discharge CHEST: Normal inspiratory effort ABDOMEN: soft, non-tender and no masses PELVIC: external genitalia normal, normal Bartholin's glands, urethra, [place]'s glands, no vulvar lesions, no cervical lesions, good vaginal support, physiologic discharge present, normal appearing perineal body and perianal region BIMANUAL: uterus normal size, shape and consistency, no adnexal masses and non-tender RECTOVAGINAL: deferred. NEURO: alert and oriented x3,exam grossly non-focal EXTREMITIES: normal ASSESSMENT/PLAN: 1) Health maintenance: Pap done with HPV. Mammogram up to date . 2) Contraception: combined hormonal contraceptives. Contraceptive options reviewed and information provided. 3) STD screening: Declined STD check. 4) Follow up one year or sooner as needed Sommer Matthew MD documented in this encounter [facility] 07-14-2021 Miscellaneous Notes Refill request received from pharmacy for patients OCP Rx. Patient last seen 07/23/20. She is scheduled for upcoming annual exam on 08/15/21. Franci Cardenas RN documented in this encounter [facility] 07-10-2014 History of Past i llness Narrative Problem Noted Date Diagnosed Date Resolved Date Low grade squamous intraepithelial dysplasia 5 09/25/2022 Cervical high risk human pap illomavirus (HPV) DNA test positive 05/25/2011 09/25/2022 documented as of this encounter (statuses as of 11/20/2022) [facility] History of Past illness Narrative* Problem Noted Date Diagnosed Date Resolved Date Low grade squamous intraepithelial dysplasia 5 09/25/2022 Cervical high risk human pap illomavirus (HPV) DNA test positive 05/25/2011 09/25/2022 documented as of this encounter (statuses as of 01/16/2023) [facility] History of Past illness Narrative* Problem Noted Date Diagnosed Date Resolved Date Low grade squamous intraepithelial dysplasia 5 09/25/2022 Cervical high risk human pap illomavirus (HPV) DNA test positive 05/25/2011 09/25/2022 documented as of this encounter (statuses as of 01/19/2023) [facility] History of Past illness Narrative* Problem Noted Date Diagnosed Date Resolved Date Low grade squamous intraepithelial dysplasia 5 09/25/2022 Cervical high risk human pap illomavirus (HPV) DNA test positive 05/25/2011 09/25/2022 documented as of this encounter (statuses as of 02/21/2023) [facility] History of Past illness Narrative* Problem Noted Date Diagnosed Date Resolved Date Low grade squamous intraepithelial dysplasia 5 09/25/2022 Cervical high risk human pap illomavirus (HPV) DNA test positive 05/25/2011 09/25/2022 documented as of this encounter (statuses as of 06/30/2023) [facility] Diagnosis Encounter for gynecological examination (general) (routine) without abnormal findings Screening for cervical cancer Screening for malignant neoplasm of the cervix Encounter for screening for human papillomavirus (HPV) Special screening examination for human papillomavirus (HPV) Encounter for screening mammogram for breast cancer [facility] Diagnosis Encounter for gynecological examination (general) (routine) without abnormal findings Encounter for screening mammogram for breast cancer [facility] noteNo assessment information availableWCleveland [facility] Work Phone: evaluation note* Diagnosis Onset Date Resolution Status Essential hypertension acute Non-rheumatic tricuspid valve insufficiency acute Palpitations acute Pulmonary hypertension acute Pure hypercholesterolemia ac wiyot [facility] Work Phone: evaluation note* Diagnosis Pulmonary hypertension (HCC)- Primary Other chronic pulmonary heart diseases [facility] Diagnosis Pulmonary hypertension (HCC) Other chronic pulmonary heart diseases [facility]* Diagnosis Pulmonary hypertension (HCC)- Primary Other chronic pulmonary heart diseases Heart murmur Undiagnosed cardiac murmurs Hypothyroidism, unspecified type Essential hypertension, malignant Generalized anxiety disorder [facility]* Diagnosis Pulmonary hypertension (HCC) Other chronic pulmonary heart diseases [facility]* Diagnosis Encounter for screening mammogram for breast cancer [facility]* Diagnosis Strep throat- Primary Streptococcal sore throat [facility] Diagnosis Encounter for gynecological examination (general) (routine) without abnormal findings- Primary Encounter for screening mammogram for breast cancer [facility]* Diagnosis Encounter for screening mammogram for breast cancer [facility] Diagnosis Pulmonary hypertension (HCC)- Primary Other chronic pulmonary heart diseases [facility] Diagnosis Encounter for gynecological examination (general) (routine) without abnormal findings- Primary Encounter for screening mammogram for breast cancer [facility]* Diagnosis Encounter for screening mammogram for breast cancer [facility]* Diagnosis Abnormal mammogram- Primary Abnormal mammogram, unspecified [facility] Diagnosis Abnormal [facility]ogram Abnormal mammogram, unspecified [facility] Abnormal mammogram Abnormal mammogram, unspecified [facility] Additional Instructions Your blood sugar was 209, that is a random 1 and is a little on the high side it should be lower than 200, talk to your doctor about this and rechecking it as well.[facility] Work Phone: Instructions* Name Dates Details Patient Instructions Indication:Non-smoker Start:10-Apr-2020 Instruction Type:Provider Instructions for Treatment How to Access Health Informa tion Online using Patient Portal and [employer]rd [employer] Apps Indication:Non-smoker Start:10-Apr-2020 Instruction Type:Patient Education How to access health informa tion online Indication:BMI 30.0-30.9,adult Start:10-Jan-2020 Instruction Type:Patient Education How to access health informa tion online - Detail Indication:BMI 30.0-30.9,adult Start:10-Jan-2020 Instruction Type:Patient Education Patient Instructions Indication:BMI 30.0-30.9,adult Start:10-Jan-2020 Instruction Type:Provider Instructions for Treatment How to access health informa tion online Indication:Non-smoker Start:01-Sep-2019 Instruction Type:Patient Education How to access health informa tion online - Detail Indication:Non-smoker Start:01-Sep-2019 Instruction Type:Patient Education Patient Instructions Indication:Non-smoker Start:01-Sep-2019 Instruction Type:Provider Instructions for Treatment How to access health informa tion online Indication:Non-smoker Start:05-May-2019 Instruction Type:Patient Education How to access health informa tion online - Detail Indication:Non-smoker Start:05-May-2019 Instruction Type:Patient Education Patient Instructions Indication:Non-smoker Start:05-May-2019 Instruction Type:Provider Instructions for Treatment How to access health informa tion online Indication:BMI 30.0-30.9,adult Start:24-Mar-2019 Instruction Type:Patient Education How to access health informa tion online - Detail Indication:BMI 30.0-30.9,adult Start:24-Mar-2019 Instruction Type:Patient Education Patient Instructions Indication:BMI 30.0-30.9,adult Start:24-Mar-2019 Instruction Type:Provider Instructions for Treatment How to access health informa tion online Indication:BMI 29.0-29.9,adult Start:28-Oct-2018 Instruction Type:Patient Education Patient Instructions Indication:BMI 29.0-29.9,adult Start:28-Oct-2018 Instruction Type:Provider Instructions for Treatment How to access health informa tion online Indication:Non-smoker Start:29-Apr-2018 Instruction Type:Patient Education How to access health informa tion online - Detail Indication:Non-smoker Start:29-Apr-2018 Instruction Type:Patient Education Patient Instructions Indication:Non-smoker Start:29-Apr-2018 Instruction Type:Provider Instructions for Treatment How to access health informa tion online Indication:BMI 26.0-26.9,adult Start:18-Feb-2018 Instruction Type:Patient Education How to access health informa tion online Indication:BMI 26.0-26.9,adult Start:18-Feb-2018 Instruction Type:Patient Education How to access health informa tion online - Detail Indication:BMI 26.0-26.9,adult Start:18-Feb-2018 Instruction Type:Patient Education Patient Instructions Indication:BMI 26.0-26.9,adult Start:18-Feb-2018 Instruction Type:Provider Instructions for Treatment How to access health informa tion online Indication:Current nonsmoker (Renamed from Current non-smoker) Start:21-Apr-2017 Instruction Type:Patient Education How to access health informa tion online - Detail Indication:Current nonsmoker (Renamed from Current non-smoker) Start:21-Apr-2017 Instruction Type:Patient Education Patient Instructions Indication:Current nonsmoker (Renamed from Current non-smoker) Start:21-Apr-2017 Instruction Type:Provider Instructions for Treatment How to access health informa tion online Indication:BMI 30.0-30.9,adult Start:25-Mar-2017 Instruction Type:Patient Education How to access health informa tion online - Detail Indication:BMI 30.0-30.9,adult Start:25-Mar-2017 Instruction Type:Patient Education Patient Instructions Indication:BMI 30.0-30.9,adult Start:25-Mar-2017 Instruction Type:Provider Instructions for Treatment How to access health informa tion online Indication:Physical exam, routine Start:09-Mar-2017 Instruction Type:Patient Education How to access health informa tion online - Detail Indication:Physical exam, routine Start:09-Mar-2017 Instruction Type:Patient Education Patient Instructions Indication:Physical exam, routine Start:09-Mar-2017 Instruction Type:Provider Instructions for Treatment How to access health informa tion online Indication:Impaired fasting glucose Start:14-Jan-2016 Instruction Type:Patient Education How to access health informa tion online - Detail Indication:Impaired fasting glucose Start:14-Jan-2016 Instruction Type:Patient Education Patient Instructions Indication:Impaired fasting glucose Start:14-Jan-2016 Instruction Type:Provider Instructions for Treatment How to access health informa tion online Indication:Impaired fasting glucose Start:09-Sep-2015 Instruction Type:Patient Education How to access health informa tion online - Detail Indication:Impaired fasting glucose Start:09-Sep-2015 Instruction Type:Patient Education Patient Instructions Indication:Impaired fasting glucose Start:09-Sep-2015 Instruction Type:Provider Instructions for Treatment How to access health informa tion online Indication:Physical exam, routine Start:11-Jun-2015 Instruction Type:Patient Education How to access health informa tion online - Detail Indication:Physical exam, routine Start:11-Jun-2015 Instruction Type:Patient Education Patient Instructions Indication:Physical exam, routine Start:11-Jun-2015 Instruction Type:Provider Instructions for Treatment Patient Instructions Indication:Low Back Pain (Renamed from LBP (low back pain)) Start:14-Nov-2013 Instruction Type:Provider Instructions for Treatment Patient Instructions Indication:Low Back Pain (Renamed from LBP (low back pain)) Start:10-Oct-2013 Instruction Type:Provider Instructions for Treatment Patient Instructions Indication:Anxiety Start:03-Jan-2013 Instruction Type:Provider Instructions for Treatment [facility]; [facility] Work Phone: Instructions* Name Dates Details Patient Instructions Indication:Non-smoker Start:10-Apr-2020 Instruction Type:Provider Instructions for Treatment How to Access Health Informa tion Online using Patient Portal and 3rd [employer] Apps Indication:Non-smoker Start:10-Apr-2020 Instruction Type:Patient Education How to access health informa tion online Indication:BMI 30.0-30.9,adult Start:10-Jan-2020 Instruction Type:Patient Education How to access health informa tion online - Detail Indication:BMI 30.0-30.9,adult Start:10-Jan-2020 Instruction Type:Patient Education Patient Instructions Indication:BMI 30.0-30.9,adult Start:10-Jan-2020 Instruction Type:Provider Instructions for Treatment How to access health informa tion online Indication:Non-smoker Start:01-Sep-2019 Instruction Type:Patient Education How to access health informa tion online - Detail Indication:Non-smoker Start:01-Sep-2019 Instruction Type:Patient Education Patient Instructions Indication:Non-smoker Start:01-Sep-2019 Instruction Type:Provider Instructions for Treatment How to access health informa tion online Indication:Non-smoker Start:05-May-2019 Instruction Type:Patient Education How to access health informa tion online - Detail Indication:Non-smoker Start:05-May-2019 Instruction Type:Patient Education Patient Instructions Indication:Non-smoker Start:05-May-2019 Instruction Type:Provider Instructions for Treatment How to access health informa tion online Indication:BMI 30.0-30.9,adult Start:24-Mar-2019 Instruction Type:Patient Education How to access health informa tion online - Detail Indication:BMI 30.0-30.9,adult Start:24-Mar-2019 Instruction Type:Patient Education Patient Instructions Indication:BMI 30.0-30.9,adult Start:24-Mar-2019 Instruction Type:Provider Instructions for Treatment How to access health informa tion online Indication:BMI 29.0-29.9,adult Start:28-Oct-2018 Instruction Type:Patient Education Patient Instructions Indication:BMI 29.0-29.9,adult Start:28-Oct-2018 Instruction Type:Provider Instructions for Treatment How to access health informa tion online Indication:Non-smoker Start:29-Apr-2018 Instruction Type:Patient Education How to access health informa tion online - Detail Indication:Non-smoker Start:29-Apr-2018 Instruction Type:Patient Education Patient Instructions Indication:Non-smoker Start:29-Apr-2018 Instruction Type:Provider Instructions for Treatment How to access health informa tion online Indication:BMI 26.0-26.9,adult Start:18-Feb-2018 Instruction Type:Patient Education How to access health informa tion online Indication:BMI 26.0-26.9,adult Start:18-Feb-2018 Instruction Type:Patient Education How to access health informa tion online - Detail Indication:BMI 26.0-26.9,adult Start:18-Feb-2018 Instruction Type:Patient Education Patient Instructions Indication:BMI 26.0-26.9,adult Start:18-Feb-2018 Instruction Type:Provider Instructions for Treatment How to access health informa tion online Indication:Current nonsmoker (Renamed from Current non-smoker) Start:21-Apr-2017 Instruction Type:Patient Education How to access health informa tion online - Detail Indication:Current nonsmoker (Renamed from Current non-smoker) Start:21-Apr-2017 Instruction Type:Patient Education Patient Instructions Indication:Current nonsmoker (Renamed from Current non-smoker) Start:21-Apr-2017 Instruction Type:Provider Instructions for Treatment How to access health informa tion online Indication:BMI 30.0-30.9,adult Start:25-Mar-2017 Instruction Type:Patient Education How to access health informa tion online - Detail Indication:BMI 30.0-30.9,adult Start:25-Mar-2017 Instruction Type:Patient Education Patient Instructions Indication:BMI 30.0-30.9,adult Start:25-Mar-2017 Instruction Type:Provider Instructions for Treatment How to access health informa tion online Indication:Physical exam, routine Start:09-Mar-2017 Instruction Type:Patient Education How to access health informa tion online - Detail Indication:Physical exam, routine Start:09-Mar-2017 Instruction Type:Patient Education Patient Instructions Indication:Physical exam, routine Start:09-Mar-2017 Instruction Type:Provider Instructions for Treatment How to access health informa tion online Indication:Impaired fasting glucose Start:14-Jan-2016 Instruction Type:Patient Education How to access health informa tion online - Detail Indication:Impaired fasting glucose Start:14-Jan-2016 Instruction Type:Patient Education Patient Instructions Indication:Impaired fasting glucose Start:14-Jan-2016 Instruction Type:Provider Instructions for Treatment How to access health informa tion online Indication:Impaired fasting glucose Start:09-Sep-2015 Instruction Type:Patient Education How to access health informa tion online - Detail Indication:Impaired fasting glucose Start:09-Sep-2015 Instruction Type:Patient Education Patient Instructions Indication:Impaired fasting glucose Start:09-Sep-2015 Instruction Type:Provider Instructions for Treatment How to access health informa tion online Indication:Physical exam, routine Start:11-Jun-2015 Instruction Type:Patient Education How to access health informa tion online - Detail Indication:Physical exam, routine Start:11-Jun-2015 Instruction Type:Patient Education Patient Instructions Indication:Physical exam, routine Start:11-Jun-2015 Instruction Type:Provider Instructions for Treatment Patient Instructions Indication:Low Back Pain (Renamed from LBP (low back pain)) Start:14-Nov-2013 Instruction Type:Provider Instructions for Treatment Patient Instructions Indication:Low Back Pain (Renamed from LBP (low back pain)) Start:10-Oct-2013 Instruction Type:Provider Instructions for Treatment Patient Instructions Indication:Anxiety Start:03-Jan-2013 Instruction Type:Provider Instructions for Treatment [facility]; [facility] Work Phone: Instructions* Name Dates Details Patient Instructions Indication:Non-smoker Start:10-Apr-2020 Instruction Type:Provider Instructions for Treatment How to Access Health Informa tion Online using Patient Portal and [employer] Apps Indication:Non-smoker Start:10-Apr-2020 Instruction Type:Patient Education How to access health informa tion online Indication:BMI 30.0-30.9,adult Start:10-Jan-2020 Instruction Type:Patient Education How to access health informa tion online - Detail Indication:BMI 30.0-30.9,adult Start:10-Jan-2020 Instruction Type:Patient Education Patient Instructions Indication:BMI 30.0-30.9,adult Start:10-Jan-2020 Instruction Type:Provider Instructions for Treatment How to access health informa tion online Indication:Non-smoker Start:01-Sep-2019 Instruction Type:Patient Education How to access health informa tion online - Detail Indication:Non-smoker Start:01-Sep-2019 Instruction Type:Patient Education Patient Instructions Indication:Non-smoker Start:01-Sep-2019 Instruction Type:Provider Instructions for Treatment How to access health informa tion online Indication:Non-smoker Start:05-May-2019 Instruction Type:Patient Education How to access health informa tion online - Detail Indication:Non-smoker Start:05-May-2019 Instruction Type:Patient Education Patient Instructions Indication:Non-smoker Start:05-May-2019 Instruction Type:Provider Instructions for Treatment How to access health informa tion online Indication:BMI 30.0-30.9,adult Start:24-Mar-2019 Instruction Type:Patient Education How to access health informa tion online - Detail Indication:BMI 30.0-30.9,adult Start:24-Mar-2019 Instruction Type:Patient Education Patient Instructions Indication:BMI 30.0-30.9,adult Start:24-Mar-2019 Instruction Type:Provider Instructions for Treatment How to access health informa tion online Indication:BMI 29.0-29.9,adult Start:28-Oct-2018 Instruction Type:Patient Education Patient Instructions Indication:BMI 29.0-29.9,adult Start:28-Oct-2018 Instruction Type:Provider Instructions for Treatment How to access health informa tion online Indication:Non-smoker Start:29-Apr-2018 Instruction Type:Patient Education How to access health informa tion online - Detail Indication:Non-smoker Start:29-Apr-2018 Instruction Type:Patient Education Patient Instructions Indication:Non-smoker Start:29-Apr-2018 Instruction Type:Provider Instructions for Treatment How to access health informa tion online Indication:BMI 26.0-26.9,adult Start:18-Feb-2018 Instruction Type:Patient Education How to access health informa tion online Indication:BMI 26.0-26.9,adult Start:18-Feb-2018 Instruction Type:Patient Education How to access health informa tion online - Detail Indication:BMI 26.0-26.9,adult Start:18-Feb-2018 Instruction Type:Patient Education Patient Instructions Indication:BMI 26.0-26.9,adult Start:18-Feb-2018 Instruction Type:Provider Instructions for Treatment How to access health informa tion online Indication:Current nonsmoker (Renamed from Current non-smoker) Start:21-Apr-2017 Instruction Type:Patient Education How to access health informa tion online - Detail Indication:Current nonsmoker (Renamed from Current non-smoker) Start:21-Apr-2017 Instruction Type:Patient Education Patient Instructions Indication:Current nonsmoker (Renamed from Current non-smoker) Start:21-Apr-2017 Instruction Type:Provider Instructions for Treatment How to access health informa tion online Indication:BMI 30.0-30.9,adult Start:25-Mar-2017 Instruction Type:Patient Education How to access health informa tion online - Detail Indication:BMI 30.0-30.9,adult Start:25-Mar-2017 Instruction Type:Patient Education Patient Instructions Indication:BMI 30.0-30.9,adult Start:25-Mar-2017 Instruction Type:Provider Instructions for Treatment How to access health informa tion online Indication:Physical exam, routine Start:09-Mar-2017 Instruction Type:Patient Education How to access health informa tion online - Detail Indication:Physical exam, routine Start:09-Mar-2017 Instruction Type:Patient Education Patient Instructions Indication:Physical exam, routine Start:09-Mar-2017 Instruction Type:Provider Instructions for Treatment How to access health informa tion online Indication:Impaired fasting glucose Start:14-Jan-2016 Instruction Type:Patient Education How to access health informa tion online - Detail Indication:Impaired fasting glucose Start:14-Jan-2016 Instruction Type:Patient Education Patient Instructions Indication:Impaired fasting glucose Start:14-Jan-2016 Instruction Type:Provider Instructions for Treatment How to access health informa tion online Indication:Impaired fasting glucose Start:09-Sep-2015 Instruction Type:Patient Education How to access health informa tion online - Detail Indication:Impaired fasting glucose Start:09-Sep-2015 Instruction Type:Patient Education Patient Instructions Indication:Impaired fasting glucose Start:09-Sep-2015 Instruction Type:Provider Instructions for Treatment How to access health informa tion online Indication:Physical exam, routine Start:11-Jun-2015 Instruction Type:Patient Education How to access health informa tion online - Detail Indication:Physical exam, routine Start:11-Jun-2015 Instruction Type:Patient Education Patient Instructions Indication:Physical exam, routine Start:11-Jun-2015 Instruction Type:Provider Instructions for Treatment Patient Instructions Indication:Low Back Pain (Renamed from LBP (low back pain)) Start:14-Nov-2013 Instruction Type:Provider Instructions for Treatment Patient Instructions Indication:Low Back Pain (Renamed from LBP (low back pain)) Start:10-Oct-2013 Instruction Type:Provider Instructions for Treatment Patient Instructions Indication:Anxiety Start:03-Jan-2013 Instruction Type:Provider Instructions for Treatment [facility]; [facility] Work Phone: Instructions* Name Dates Details Patient Instructions Indication:BMI 23.0-23.9, adult Start:01-Nov-2020 Instruction Type:Provider Instructions for Treatment How to Access Health Informa tion Online using Patient Portal and [employer]rd [employer] Apps Indication:BMI 23.0-23.9, adult Start:01-Nov-2020 Instruction Type:Patient Education Patient Instructions Indication:Non-smoker Start:10-Apr-2020 Instruction Type:Provider Instructions for Treatment How to Access Health Informa tion Online using Patient Portal and [employer]rd [employer] Apps Indication:Non-smoker Start:10-Apr-2020 Instruction Type:Patient Education How to access health informa tion online Indication:BMI 30.0-30.9,adult Start:10-Jan-2020 Instruction Type:Patient Education How to access health informa tion online - Detail Indication:BMI 30.0-30.9,adult Start:10-Jan-2020 Instruction Type:Patient Education Patient Instructions Indication:BMI 30.0-30.9,adult Start:10-Jan-2020 Instruction Type:Provider Instructions for Treatment How to access health informa tion online Indication:Non-smoker Start:01-Sep-2019 Instruction Type:Patient Education How to access health informa tion online - Detail Indication:Non-smoker Start:01-Sep-2019 Instruction Type:Patient Education Patient Instructions Indication:Non-smoker Start:01-Sep-2019 Instruction Type:Provider Instructions for Treatment How to access health informa tion online Indication:Non-smoker Start:05-May-2019 Instruction Type:Patient Education How to access health informa tion online - Detail Indication:Non-smoker Start:05-May-2019 Instruction Type:Patient Education Patient Instructions Indication:Non-smoker Start:05-May-2019 Instruction Type:Provider Instructions for Treatment How to access health informa tion online Indication:BMI 30.0-30.9,adult Start:24-Mar-2019 Instruction Type:Patient Education How to access health informa tion online - Detail Indication:BMI 30.0-30.9,adult Start:24-Mar-2019 Instruction Type:Patient Education Patient Instructions Indication:BMI 30.0-30.9,adult Start:24-Mar-2019 Instruction Type:Provider Instructions for Treatment How to access health informa tion online Indication:BMI 29.0-29.9,adult Start:28-Oct-2018 Instruction Type:Patient Education Patient Instructions Indication:BMI 29.0-29.9,adult Start:28-Oct-2018 Instruction Type:Provider Instructions for Treatment How to access health informa tion online Indication:Non-smoker Start:29-Apr-2018 Instruction Type:Patient Education How to access health informa tion online - Detail Indication:Non-smoker Start:29-Apr-2018 Instruction Type:Patient Education Patient Instructions Indication:Non-smoker Start:29-Apr-2018 Instruction Type:Provider Instructions for Treatment How to access health informa tion online Indication:BMI 26.0-26.9,adult Start:18-Feb-2018 Instruction Type:Patient Education How to access health informa tion online Indication:BMI 26.0-26.9,adult Start:18-Feb-2018 Instruction Type:Patient Education How to access health informa tion online - Detail Indication:BMI 26.0-26.9,adult Start:18-Feb-2018 Instruction Type:Patient Education Patient Instructions Indication:BMI 26.0-26.9,adult Start:18-Feb-2018 Instruction Type:Provider Instructions for Treatment How to access health informa tion online Indication:Current nonsmoker (Renamed from Current non-smoker) Start:21-Apr-2017 Instruction Type:Patient Education How to access health informa tion online - Detail Indication:Current nonsmoker (Renamed from Current non-smoker) Start:21-Apr-2017 Instruction Type:Patient Education Patient Instructions Indication:Current nonsmoker (Renamed from Current non-smoker) Start:21-Apr-2017 Instruction Type:Provider Instructions for Treatment How to access health informa tion online Indication:BMI 30.0-30.9,adult Start:25-Mar-2017 Instruction Type:Patient Education How to access health informa tion online - Detail Indication:BMI 30.0-30.9,adult Start:25-Mar-2017 Instruction Type:Patient Education Patient Instructions Indication:BMI 30.0-30.9,adult Start:25-Mar-2017 Instruction Type:Provider Instructions for Treatment How to access health informa tion online Indication:Physical exam, routine Start:09-Mar-2017 Instruction Type:Patient Education How to access health informa tion online - Detail Indication:Physical exam, routine Start:09-Mar-2017 Instruction Type:Patient Education Patient Instructions Indication:Physical exam, routine Start:09-Mar-2017 Instruction Type:Provider Instructions for Treatment How to access health informa tion online Indication:Impaired fasting glucose Start:14-Jan-2016 Instruction Type:Patient Education How to access health informa tion online - Detail Indication:Impaired fasting glucose Start:14-Jan-2016 Instruction Type:Patient Education Patient Instructions Indication:Impaired fasting glucose Start:14-Jan-2016 Instruction Type:Provider Instructions for Treatment How to access health informa tion online Indication:Impaired fasting glucose Start:09-Sep-2015 Instruction Type:Patient Education How to access health informa tion online - Detail Indication:Impaired fasting glucose Start:09-Sep-2015 Instruction Type:Patient Education Patient Instructions Indication:Impaired fasting glucose Start:09-Sep-2015 Instruction Type:Provider Instructions for Treatment How to access health informa tion online Indication:Physical exam, routine Start:11-Jun-2015 Instruction Type:Patient Education How to access health informa tion online - Detail Indication:Physical exam, routine Start:11-Jun-2015 Instruction Type:Patient Education Patient Instructions Indication:Physical exam, routine Start:11-Jun-2015 Instruction Type:Provider Instructions for Treatment Patient Instructions Indication:Low Back Pain (Renamed from LBP (low back pain)) Start:14-Nov-2013 Instruction Type:Provider Instructions for Treatment Patient Instructions Indication:Low Back Pain (Renamed from LBP (low back pain)) Start:10-Oct-2013 Instruction Type:Provider Instructions for Treatment Patient Instructions Indication:Anxiety Start:03-Jan-2013 Instruction Type:Provider Instructions for Treatment [facility]; [facility] Work Phone: Instructions* Name Dates Details How to Access Health Informa tion Online using Patient Portal and [employer] Apps Indication:Non-smoker Start:10-Jul-2021 Instruction Type:Patient Education Patient Instructions Indication:Non-smoker Start:10-Jul-2021 Instruction Type:Provider Instructions for Treatment Patient Instructions Indication:BMI 23.0-23.9, adult Start:01-Nov-2020 Instruction Type:Provider Instructions for Treatment How to Access Health Informa tion Online using Patient Portal and [employer] Apps Indication:BMI 23.0-23.9, adult Start:01-Nov-2020 Instruction Type:Patient Education Patient Instructions Indication:Non-smoker Start:10-Apr-2020 Instruction Type:Provider Instructions for Treatment How to Access Health Informa tion Online using Patient Portal and [employer] Apps Indication:Non-smoker Start:10-Apr-2020 Instruction Type:Patient Education How to access health informa tion online Indication:BMI 30.0-30.9,adult Start:10-Jan-2020 Instruction Type:Patient Education How to access health informa tion online - Detail Indication:BMI 30.0-30.9,adult Start:10-Jan-2020 Instruction Type:Patient Education Patient Instructions Indication:BMI 30.0-30.9,adult Start:10-Jan-2020 Instruction Type:Provider Instructions for Treatment How to access health informa tion online Indication:Non-smoker Start:01-Sep-2019 Instruction Type:Patient Education How to access health informa tion online - Detail Indication:Non-smoker Start:01-Sep-2019 Instruction Type:Patient Education Patient Instructions Indication:Non-smoker Start:01-Sep-2019 Instruction Type:Provider Instructions for Treatment How to access health informa tion online Indication:Non-smoker Start:05-May-2019 Instruction Type:Patient Education How to access health informa tion online - Detail Indication:Non-smoker Start:05-May-2019 Instruction Type:Patient Education Patient Instructions Indication:Non-smoker Start:05-May-2019 Instruction Type:Provider Instructions for Treatment How to access health informa tion online Indication:BMI 30.0-30.9,adult Start:24-Mar-2019 Instruction Type:Patient Education How to access health informa tion online - Detail Indication:BMI 30.0-30.9,adult Start:24-Mar-2019 Instruction Type:Patient Education Patient Instructions Indication:BMI 30.0-30.9,adult Start:24-Mar-2019 Instruction Type:Provider Instructions for Treatment How to access health informa tion online Indication:BMI 29.0-29.9,adult Start:28-Oct-2018 Instruction Type:Patient Education Patient Instructions Indication:BMI 29.0-29.9,adult Start:28-Oct-2018 Instruction Type:Provider Instructions for Treatment How to access health informa tion online Indication:Non-smoker Start:29-Apr-2018 Instruction Type:Patient Education How to access health informa tion online - Detail Indication:Non-smoker Start:29-Apr-2018 Instruction Type:Patient Education Patient Instructions Indication:Non-smoker Start:29-Apr-2018 Instruction Type:Provider Instructions for Treatment How to access health informa tion online Indication:BMI 26.0-26.9,adult Start:18-Feb-2018 Instruction Type:Patient Education How to access health informa tion online Indication:BMI 26.0-26.9,adult Start:18-Feb-2018 Instruction Type:Patient Education How to access health informa tion online - Detail Indication:BMI 26.0-26.9,adult Start:18-Feb-2018 Instruction Type:Patient Education Patient Instructions Indication:BMI 26.0-26.9,adult Start:18-Feb-2018 Instruction Type:Provider Instructions for Treatment How to access health informa tion online Indication:Current nonsmoker (Renamed from Current non-smoker) Start:21-Apr-2017 Instruction Type:Patient Education How to access health informa tion online - Detail Indication:Current nonsmoker (Renamed from Current non-smoker) Start:21-Apr-2017 Instruction Type:Patient Education Patient Instructions Indication:Current nonsmoker (Renamed from Current non-smoker) Start:21-Apr-2017 Instruction Type:Provider Instructions for Treatment How to access health informa tion online Indication:BMI 30.0-30.9,adult Start:25-Mar-2017 Instruction Type:Patient Education How to access health informa tion online - Detail Indication:BMI 30.0-30.9,adult Start:25-Mar-2017 Instruction Type:Patient Education Patient Instructions Indication:BMI 30.0-30.9,adult Start:25-Mar-2017 Instruction Type:Provider Instructions for Treatment How to access health informa tion online Indication:Physical exam, routine Start:09-Mar-2017 Instruction Type:Patient Education How to access health informa tion online - Detail Indication:Physical exam, routine Start:09-Mar-2017 Instruction Type:Patient Education Patient Instructions Indication:Physical exam, routine Start:09-Mar-2017 Instruction Type:Provider Instructions for Treatment How to access health informa tion online Indication:Impaired fasting glucose Start:14-Jan-2016 Instruction Type:Patient Education How to access health informa tion online - Detail Indication:Impaired fasting glucose Start:14-Jan-2016 Instruction Type:Patient Education Patient Instructions Indication:Impaired fasting glucose Start:14-Jan-2016 Instruction Type:Provider Instructions for Treatment How to access health informa tion online Indication:Impaired fasting glucose Start:09-Sep-2015 Instruction Type:Patient Education How to access health informa tion online - Detail Indication:Impaired fasting glucose Start:09-Sep-2015 Instruction Type:Patient Education Patient Instructions Indication:Impaired fasting glucose Start:09-Sep-2015 Instruction Type:Provider Instructions for Treatment How to access health informa tion online Indication:Physical exam, routine Start:11-Jun-2015 Instruction Type:Patient Education How to access health informa tion online - Detail Indication:Physical exam, routine Start:11-Jun-2015 Instruction Type:Patient Education Patient Instructions Indication:Physical exam, routine Start:11-Jun-2015 Instruction Type:Provider Instructions for Treatment Patient Instructions Indication:Low Back Pain (Renamed from LBP (low back pain)) Start:14-Nov-2013 Instruction Type:Provider Instructions for Treatment Patient Instructions Indication:Low Back Pain (Renamed from LBP (low back pain)) Start:10-Oct-2013 Instruction Type:Provider Instructions for Treatment Patient Instructions Indication:Anxiety Start:03-Jan-2013 Instruction Type:Provider Instructions for Treatment [facility]; [facility] Work Phone: Instructions* Name Dates Details Patient Instructions Indication:Non-smoker Start:09-Jan-2022 Instruction Type:Provider Instructions for Treatment How to Access Health Informa tion Online using Patient Portal and [employer]rd [employer] Apps Indication:Non-smoker Start:09-Jan-2022 Instruction Type:Patient Education Patient Instructions Indication:BMI 25.0-25.9,adult Start:12-Dec-2021 Instruction Type:Provider Instructions for Treatment How to Access Health Informa tion Online using Patient Portal and [employer]rd [employer] Apps Indication:BMI 25.0-25.9,adult Start:12-Dec-2021 Instruction Type:Patient Education How to Access Health Informa tion Online using Patient Portal and [employer]rd [employer] Apps Indication:Non-smoker Start:10-Jul-2021 Instruction Type:Patient Education Patient Instructions Indication:Non-smoker Start:10-Jul-2021 Instruction Type:Provider Instructions for Treatment Patient Instructions Indication:BMI 23.0-23.9, adult Start:01-Nov-2020 Instruction Type:Provider Instructions for Treatment How to Access Health Informa tion Online using Patient Portal and [employer] Indication:BMI 23.0-23.9, adult Start:01-Nov-2020 Instruction Type:Patient Education Patient Instructions Indication:Non-smoker Start:10-Apr-2020 Instruction Type:Provider Instructions for Treatment How to Access Health Informa tion Online using Patient Portal and [employer] Indication:Non-smoker Start:10-Apr-2020 Instruction Type:Patient Education How to access health informa tion online Indication:BMI 30.0-30.9,adult Start:10-Jan-2020 Instruction Type:Patient Education How to access health informa tion online - Detail Indication:BMI 30.0-30.9,adult Start:10-Jan-2020 Instruction Type:Patient Education Patient Instructions Indication:BMI 30.0-30.9,adult Start:10-Jan-2020 Instruction Type:Provider Instructions for Treatment How to access health informa tion online Indication:Non-smoker Start:01-Sep-2019 Instruction Type:Patient Education How to access health informa tion online - Detail Indication:Non-smoker Start:01-Sep-2019 Instruction Type:Patient Education Patient Instructions Indication:Non-smoker Start:01-Sep-2019 Instruction Type:Provider Instructions for Treatment How to access health informa tion online Indication:Non-smoker Start:05-May-2019 Instruction Type:Patient Education How to access health informa tion online - Detail Indication:Non-smoker Start:05-May-2019 Instruction Type:Patient Education Patient Instructions Indication:Non-smoker Start:05-May-2019 Instruction Type:Provider Instructions for Treatment How to access health informa tion online Indication:BMI 30.0-30.9,adult Start:24-Mar-2019 Instruction Type:Patient Education How to access health informa tion online - Detail Indication:BMI 30.0-30.9,adult Start:24-Mar-2019 Instruction Type:Patient Education Patient Instructions Indication:BMI 30.0-30.9,adult Start:24-Mar-2019 Instruction Type:Provider Instructions for Treatment How to access health informa tion online Indication:BMI 29.0-29.9,adult Start:28-Oct-2018 Instruction Type:Patient Education Patient Instructions Indication:BMI 29.0-29.9,adult Start:28-Oct-2018 Instruction Type:Provider Instructions for Treatment How to access health informa tion online Indication:Non-smoker Start:29-Apr-2018 Instruction Type:Patient Education How to access health informa tion online - Detail Indication:Non-smoker Start:29-Apr-2018 Instruction Type:Patient Education Patient Instructions Indication:Non-smoker Start:29-Apr-2018 Instruction Type:Provider Instructions for Treatment How to access health informa tion online Indication:BMI 26.0-26.9,adult Start:18-Feb-2018 Instruction Type:Patient Education How to access health informa tion online Indication:BMI 26.0-26.9,adult Start:18-Feb-2018 Instruction Type:Patient Education How to access health informa tion online - Detail Indication:BMI 26.0-26.9,adult Start:18-Feb-2018 Instruction Type:Patient Education Patient Instructions Indication:BMI 26.0-26.9,adult Start:18-Feb-2018 Instruction Type:Provider Instructions for Treatment How to access health informa tion online Indication:Current nonsmoker (Renamed from Current non-smoker) Start:21-Apr-2017 Instruction Type:Patient Education How to access health informa tion online - Detail Indication:Current nonsmoker (Renamed from Current non-smoker) Start:21-Apr-2017 Instruction Type:Patient Education Patient Instructions Indication:Current nonsmoker (Renamed from Current non-smoker) Start:21-Apr-2017 Instruction Type:Provider Instructions for Treatment How to access health informa tion online Indication:BMI 30.0-30.9,adult Start:25-Mar-2017 Instruction Type:Patient Education How to access health informa tion online - Detail Indication:BMI 30.0-30.9,adult Start:25-Mar-2017 Instruction Type:Patient Education Patient Instructions Indication:BMI 30.0-30.9,adult Start:25-Mar-2017 Instruction Type:Provider Instructions for Treatment How to access health informa tion online Indication:Physical exam, routine Start:09-Mar-2017 Instruction Type:Patient Education How to access health informa tion online - Detail Indication:Physical exam, routine Start:09-Mar-2017 Instruction Type:Patient Education Patient Instructions Indication:Physical exam, routine Start:09-Mar-2017 Instruction Type:Provider Instructions for Treatment How to access health informa tion online Indication:Impaired fasting glucose Start:14-Jan-2016 Instruction Type:Patient Education How to access health informa tion online - Detail Indication:Impaired fasting glucose Start:14-Jan-2016 Instruction Type:Patient Education Patient Instructions Indication:Impaired fasting glucose Start:14-Jan-2016 Instruction Type:Provider Instructions for Treatment How to access health informa tion online Indication:Impaired fasting glucose Start:09-Sep-2015 Instruction Type:Patient Education How to access health informa tion online - Detail Indication:Impaired fasting glucose Start:09-Sep-2015 Instruction Type:Patient Education Patient Instructions Indication:Impaired fasting glucose Start:09-Sep-2015 Instruction Type:Provider Instructions for Treatment How to access health informa tion online Indication:Physical exam, routine Start:11-Jun-2015 Instruction Type:Patient Education How to access health informa tion online - Detail Indication:Physical exam, routine Start:11-Jun-2015 Instruction Type:Patient Education Patient Instructions Indication:Physical exam, routine Start:11-Jun-2015 Instruction Type:Provider Instructions for Treatment Patient Instructions Indication:Low Back Pain (Renamed from LBP (low back pain)) Start:14-Nov-2013 Instruction Type:Provider Instructions for Treatment Patient Instructions Indication:Low Back Pain (Renamed from LBP (low back pain)) Start:10-Oct-2013 Instruction Type:Provider Instructions for Treatment Patient Instructions Indication:Anxiety Start:03-Jan-2013 Instruction Type:Provider Instructions for Treatment [facility]; [facility] Work Phone: Instructions* Name Dates Details Patient Instructions Indication:Non-smoker Start:09-Jan-2022 Instruction Type:Provider Instructions for Treatment How to Access Health Informa tion Online using Patient Portal and [employer]rd [employer] Indication:Non-smoker Start:09-Jan-2022 Instruction Type:Patient Education Patient Instructions Indication:BMI 25.0-25.9,adult Start:12-Dec-2021 Instruction Type:Provider Instructions for Treatment How to Access Health Informa tion Online using Patient Portal and [employer] Apps Indication:BMI 25.0-25.9,adult Start:12-Dec-2021 Instruction Type:Patient Education How to Access Health Informa tion Online using Patient Portal and [employer]rd [employer] Apps Indication:Non-smoker Start:10-Jul-2021 Instruction Type:Patient Education Patient Instructions Indication:Non-smoker Start:10-Jul-2021 Instruction Type:Provider Instructions for Treatment Patient Instructions Indication:BMI 23.0-23.9, adult Start:01-Nov-2020 Instruction Type:Provider Instructions for Treatment How to Access Health Informa tion Online using Patient Portal and [employer]rd [employer] Apps Indication:BMI 23.0-23.9, adult Start:01-Nov-2020 Instruction Type:Patient Education Patient Instructions Indication:Non-smoker Start:10-Apr-2020 Instruction Type:Provider Instructions for Treatment How to Access Health Informa tion Online using Patient Portal and [employer] Apps Indication:Non-smoker Start:10-Apr-2020 Instruction Type:Patient Education How to access health informa tion online Indication:BMI 30.0-30.9,adult Start:10-Jan-2020 Instruction Type:Patient Education How to access health informa tion online - Detail Indication:BMI 30.0-30.9,adult Start:10-Jan-2020 Instruction Type:Patient Education Patient Instructions Indication:BMI 30.0-30.9,adult Start:10-Jan-2020 Instruction Type:Provider Instructions for Treatment How to access health informa tion online Indication:Non-smoker Start:01-Sep-2019 Instruction Type:Patient Education How to access health informa tion online - Detail Indication:Non-smoker Start:01-Sep-2019 Instruction Type:Patient Education Patient Instructions Indication:Non-smoker Start:01-Sep-2019 Instruction Type:Provider Instructions for Treatment How to access health informa tion online Indication:Non-smoker Start:05-May-2019 Instruction Type:Patient Education How to access health informa tion online - Detail Indication:Non-smoker Start:05-May-2019 Instruction Type:Patient Education Patient Instructions Indication:Non-smoker Start:05-May-2019 Instruction Type:Provider Instructions for Treatment How to access health informa tion online Indication:BMI 30.0-30.9,adult Start:24-Mar-2019 Instruction Type:Patient Education How to access health informa tion online - Detail Indication:BMI 30.0-30.9,adult Start:24-Mar-2019 Instruction Type:Patient Education Patient Instructions Indication:BMI 30.0-30.9,adult Start:24-Mar-2019 Instruction Type:Provider Instructions for Treatment How to access health informa tion online Indication:BMI 29.0-29.9,adult Start:28-Oct-2018 Instruction Type:Patient Education Patient Instructions Indication:BMI 29.0-29.9,adult Start:28-Oct-2018 Instruction Type:Provider Instructions for Treatment How to access health informa tion online Indication:Non-smoker Start:29-Apr-2018 Instruction Type:Patient Education How to access health informa tion online - Detail Indication:Non-smoker Start:29-Apr-2018 Instruction Type:Patient Education Patient Instructions Indication:Non-smoker Start:29-Apr-2018 Instruction Type:Provider Instructions for Treatment How to access health informa tion online Indication:BMI 26.0-26.9,adult Start:18-Feb-2018 Instruction Type:Patient Education How to access health informa tion online Indication:BMI 26.0-26.9,adult Start:18-Feb-2018 Instruction Type:Patient Education How to access health informa tion online - Detail Indication:BMI 26.0-26.9,adult Start:18-Feb-2018 Instruction Type:Patient Education Patient Instructions Indication:BMI 26.0-26.9,adult Start:18-Feb-2018 Instruction Type:Provider Instructions for Treatment How to access health informa tion online Indication:Current nonsmoker (Renamed from Current non-smoker) Start:21-Apr-2017 Instruction Type:Patient Education How to access health informa tion online - Detail Indication:Current nonsmoker (Renamed from Current non-smoker) Start:21-Apr-2017 Instruction Type:Patient Education Patient Instructions Indication:Current nonsmoker (Renamed from Current non-smoker) Start:21-Apr-2017 Instruction Type:Provider Instructions for Treatment How to access health informa tion online Indication:BMI 30.0-30.9,adult Start:25-Mar-2017 Instruction Type:Patient Education How to access health informa tion online - Detail Indication:BMI 30.0-30.9,adult Start:25-Mar-2017 Instruction Type:Patient Education Patient Instructions Indication:BMI 30.0-30.9,adult Start:25-Mar-2017 Instruction Type:Provider Instructions for Treatment How to access health informa tion online Indication:Physical exam, routine Start:09-Mar-2017 Instruction Type:Patient Education How to access health informa tion online - Detail Indication:Physical exam, routine Start:09-Mar-2017 Instruction Type:Patient Education Patient Instructions Indication:Physical exam, routine Start:09-Mar-2017 Instruction Type:Provider Instructions for Treatment How to access health informa tion online Indication:Impaired fasting glucose Start:14-Jan-2016 Instruction Type:Patient Education How to access health informa tion online - Detail Indication:Impaired fasting glucose Start:14-Jan-2016 Instruction Type:Patient Education Patient Instructions Indication:Impaired fasting glucose Start:14-Jan-2016 Instruction Type:Provider Instructions for Treatment How to access health informa tion online Indication:Impaired fasting glucose Start:09-Sep-2015 Instruction Type:Patient Education How to access health informa tion online - Detail Indication:Impaired fasting glucose Start:09-Sep-2015 Instruction Type:Patient Education Patient Instructions Indication:Impaired fasting glucose Start:09-Sep-2015 Instruction Type:Provider Instructions for Treatment How to access health informa tion online Indication:Physical exam, routine Start:11-Jun-2015 Instruction Type:Patient Education How to access health informa tion online - Detail Indication:Physical exam, routine Start:11-Jun-2015 Instruction Type:Patient Education Patient Instructions Indication:Physical exam, routine Start:11-Jun-2015 Instruction Type:Provider Instructions for Treatment Patient Instructions Indication:Low Back Pain (Renamed from LBP (low back pain)) Start:14-Nov-2013 Instruction Type:Provider Instructions for Treatment Patient Instructions Indication:Low Back Pain (Renamed from LBP (low back pain)) Start:10-Oct-2013 Instruction Type:Provider Instructions for Treatment Patient Instructions Indication:Anxiety Start:03-Jan-2013 Instruction Type:Provider Instructions for Treatment [facility]; [facility] Work Phone: Instructions* Name Dates Details Patient Instructions Indication:Non-smoker Start:09-Jan-2022 Instruction Type:Provider Instructions for Treatment How to Access Health Informa tion Online using Patient Portal and [employer] Indication:Non-smoker Start:09-Jan-2022 Instruction Type:Patient Education Patient Instructions Indication:BMI 25.0-25.9,adult Start:12-Dec-2021 Instruction Type:Provider Instructions for Treatment How to Access Health Informa tion Online using Patient Portal and [employer] Indication:BMI 25.0-25.9,adult Start:12-Dec-2021 Instruction Type:Patient Education How to Access Health Informa tion Online using Patient Portal and [employer] Indication:Non-smoker Start:10-Jul-2021 Instruction Type:Patient Education Patient Instructions Indication:Non-smoker Start:10-Jul-2021 Instruction Type:Provider Instructions for Treatment Patient Instructions Indication:BMI 23.0-23.9, adult Start:01-Nov-2020 Instruction Type:Provider Instructions for Treatment How to Access Health Informa tion Online using Patient Portal and [employer] Indication:BMI 23.0-23.9, adult Start:01-Nov-2020 Instruction Type:Patient Education Patient Instructions Indication:Non-smoker Start:10-Apr-2020 Instruction Type:Provider Instructions for Treatment How to Access Health Informa tion Online using Patient Portal and [employer] Apps Indication:Non-smoker Start:10-Apr-2020 Instruction Type:Patient Education How to access health informa tion online Indication:BMI 30.0-30.9,adult Start:10-Jan-2020 Instruction Type:Patient Education How to access health informa tion online - Detail Indication:BMI 30.0-30.9,adult Start:10-Jan-2020 Instruction Type:Patient Education Patient Instructions Indication:BMI 30.0-30.9,adult Start:10-Jan-2020 Instruction Type:Provider Instructions for Treatment How to access health informa tion online Indication:Non-smoker Start:01-Sep-2019 Instruction Type:Patient Education How to access health informa tion online - Detail Indication:Non-smoker Start:01-Sep-2019 Instruction Type:Patient Education Patient Instructions Indication:Non-smoker Start:01-Sep-2019 Instruction Type:Provider Instructions for Treatment How to access health informa tion online Indication:Non-smoker Start:05-May-2019 Instruction Type:Patient Education How to access health informa tion online - Detail Indication:Non-smoker Start:05-May-2019 Instruction Type:Patient Education Patient Instructions Indication:Non-smoker Start:05-May-2019 Instruction Type:Provider Instructions for Treatment How to access health informa tion online Indication:BMI 30.0-30.9,adult Start:24-Mar-2019 Instruction Type:Patient Education How to access health informa tion online - Detail Indication:BMI 30.0-30.9,adult Start:24-Mar-2019 Instruction Type:Patient Education Patient Instructions Indication:BMI 30.0-30.9,adult Start:24-Mar-2019 Instruction Type:Provider Instructions for Treatment How to access health informa tion online Indication:BMI 29.0-29.9,adult Start:28-Oct-2018 Instruction Type:Patient Education Patient Instructions Indication:BMI 29.0-29.9,adult Start:28-Oct-2018 Instruction Type:Provider Instructions for Treatment How to access health informa tion online Indication:Non-smoker Start:29-Apr-2018 Instruction Type:Patient Education How to access health informa tion online - Detail Indication:Non-smoker Start:29-Apr-2018 Instruction Type:Patient Education Patient Instructions Indication:Non-smoker Start:29-Apr-2018 Instruction Type:Provider Instructions for Treatment How to access health informa tion online Indication:BMI 26.0-26.9,adult Start:18-Feb-2018 Instruction Type:Patient Education How to access health informa tion online Indication:BMI 26.0-26.9,adult Start:18-Feb-2018 Instruction Type:Patient Education How to access health informa tion online - Detail Indication:BMI 26.0-26.9,adult Start:18-Feb-2018 Instruction Type:Patient Education Patient Instructions Indication:BMI 26.0-26.9,adult Start:18-Feb-2018 Instruction Type:Provider Instructions for Treatment How to access health informa tion online Indication:Current nonsmoker (Renamed from Current non-smoker) Start:21-Apr-2017 Instruction Type:Patient Education How to access health informa tion online - Detail Indication:Current nonsmoker (Renamed from Current non-smoker) Start:21-Apr-2017 Instruction Type:Patient Education Patient Instructions Indication:Current nonsmoker (Renamed from Current non-smoker) Start:21-Apr-2017 Instruction Type:Provider Instructions for Treatment How to access health informa tion online Indication:BMI 30.0-30.9,adult Start:25-Mar-2017 Instruction Type:Patient Education How to access health informa tion online - Detail Indication:BMI 30.0-30.9,adult Start:25-Mar-2017 Instruction Type:Patient Education Patient Instructions Indication:BMI 30.0-30.9,adult Start:25-Mar-2017 Instruction Type:Provider Instructions for Treatment How to access health informa tion online Indication:Physical exam, routine Start:09-Mar-2017 Instruction Type:Patient Education How to access health informa tion online - Detail Indication:Physical exam, routine Start:09-Mar-2017 Instruction Type:Patient Education Patient Instructions Indication:Physical exam, routine Start:09-Mar-2017 Instruction Type:Provider Instructions for Treatment How to access health informa tion online Indication:Impaired fasting glucose Start:14-Jan-2016 Instruction Type:Patient Education How to access health informa tion online - Detail Indication:Impaired fasting glucose Start:14-Jan-2016 Instruction Type:Patient Education Patient Instructions Indication:Impaired fasting glucose Start:14-Jan-2016 Instruction Type:Provider Instructions for Treatment How to access health informa tion online Indication:Impaired fasting glucose Start:09-Sep-2015 Instruction Type:Patient Education How to access health informa tion online - Detail Indication:Impaired fasting glucose Start:09-Sep-2015 Instruction Type:Patient Education Patient Instructions Indication:Impaired fasting glucose Start:09-Sep-2015 Instruction Type:Provider Instructions for Treatment How to access health informa tion online Indication:Physical exam, routine Start:11-Jun-2015 Instruction Type:Patient Education How to access health informa tion online - Detail Indication:Physical exam, routine Start:11-Jun-2015 Instruction Type:Patient Education Patient Instructions Indication:Physical exam, routine Start:11-Jun-2015 Instruction Type:Provider Instructions for Treatment Patient Instructions Indication:Low Back Pain (Renamed from LBP (low back pain)) Start:14-Nov-2013 Instruction Type:Provider Instructions for Treatment Patient Instructions Indication:Low Back Pain (Renamed from LBP (low back pain)) Start:10-Oct-2013 Instruction Type:Provider Instructions for Treatment Patient Instructions Indication:Anxiety Start:03-Jan-2013 Instruction Type:Provider Instructions for Treatment [facility]; [facility] Work Phone: Instructions* Name Dates Details Patient Instructions Indication:Non-smoker Start:09-Jan-2022 Instruction Type:Provider Instructions for Treatment How to Access Health Informa tion Online using Patient Portal and [employer] Indication:Non-smoker Start:09-Jan-2022 Instruction Type:Patient Education Patient Instructions Indication:BMI 25.0-25.9,adult Start:12-Dec-2021 Instruction Type:Provider Instructions for Treatment How to Access Health Informa tion Online using Patient Portal and [employer] Indication:BMI 25.0-25.9,adult Start:12-Dec-2021 Instruction Type:Patient Education How to Access Health Informa tion Online using Patient Portal and [employer] Indication:Non-smoker Start:10-Jul-2021 Instruction Type:Patient Education Patient Instructions Indication:Non-smoker Start:10-Jul-2021 Instruction Type:Provider Instructions for Treatment Patient Instructions Indication:BMI 23.0-23.9, adult Start:01-Nov-2020 Instruction Type:Provider Instructions for Treatment How to Access Health Informa tion Online using Patient Portal and [employer] Indication:BMI 23.0-23.9, adult Start:01-Nov-2020 Instruction Type:Patient Education Patient Instructions Indication:Non-smoker Start:10-Apr-2020 Instruction Type:Provider Instructions for Treatment How to Access Health Informa tion Online using Patient Portal and [employer] Indication:Non-smoker Start:10-Apr-2020 Instruction Type:Patient Education How to access health informa tion online Indication:BMI 30.0-30.9,adult Start:10-Jan-2020 Instruction Type:Patient Education How to access health informa tion online - Detail Indication:BMI 30.0-30.9,adult Start:10-Jan-2020 Instruction Type:Patient Education Patient Instructions Indication:BMI 30.0-30.9,adult Start:10-Jan-2020 Instruction Type:Provider Instructions for Treatment How to access health informa tion online Indication:Non-smoker Start:01-Sep-2019 Instruction Type:Patient Education How to access health informa tion online - Detail Indication:Non-smoker Start:01-Sep-2019 Instruction Type:Patient Education Patient Instructions Indication:Non-smoker Start:01-Sep-2019 Instruction Type:Provider Instructions for Treatment How to access health informa tion online Indication:Non-smoker Start:05-May-2019 Instruction Type:Patient Education How to access health informa tion online - Detail Indication:Non-smoker Start:05-May-2019 Instruction Type:Patient Education Patient Instructions Indication:Non-smoker Start:05-May-2019 Instruction Type:Provider Instructions for Treatment How to access health informa tion online Indication:BMI 30.0-30.9,adult Start:24-Mar-2019 Instruction Type:Patient Education How to access health informa tion online - Detail Indication:BMI 30.0-30.9,adult Start:24-Mar-2019 Instruction Type:Patient Education Patient Instructions Indication:BMI 30.0-30.9,adult Start:24-Mar-2019 Instruction Type:Provider Instructions for Treatment How to access health informa tion online Indication:BMI 29.0-29.9,adult Start:28-Oct-2018 Instruction Type:Patient Education Patient Instructions Indication:BMI 29.0-29.9,adult Start:28-Oct-2018 Instruction Type:Provider Instructions for Treatment How to access health informa tion online Indication:Non-smoker Start:29-Apr-2018 Instruction Type:Patient Education How to access health informa tion online - Detail Indication:Non-smoker Start:29-Apr-2018 Instruction Type:Patient Education Patient Instructions Indication:Non-smoker Start:29-Apr-2018 Instruction Type:Provider Instructions for Treatment How to access health informa tion online Indication:BMI 26.0-26.9,adult Start:18-Feb-2018 Instruction Type:Patient Education How to access health informa tion online Indication:BMI 26.0-26.9,adult Start:18-Feb-2018 Instruction Type:Patient Education How to access health informa tion online - Detail Indication:BMI 26.0-26.9,adult Start:18-Feb-2018 Instruction Type:Patient Education Patient Instructions Indication:BMI 26.0-26.9,adult Start:18-Feb-2018 Instruction Type:Provider Instructions for Treatment How to access health informa tion online Indication:Current nonsmoker (Renamed from Current non-smoker) Start:21-Apr-2017 Instruction Type:Patient Education How to access health informa tion online - Detail Indication:Current nonsmoker (Renamed from Current non-smoker) Start:21-Apr-2017 Instruction Type:Patient Education Patient Instructions Indication:Current nonsmoker (Renamed from Current non-smoker) Start:21-Apr-2017 Instruction Type:Provider Instructions for Treatment How to access health informa tion online Indication:BMI 30.0-30.9,adult Start:25-Mar-2017 Instruction Type:Patient Education How to access health informa tion online - Detail Indication:BMI 30.0-30.9,adult Start:25-Mar-2017 Instruction Type:Patient Education Patient Instructions Indication:BMI 30.0-30.9,adult Start:25-Mar-2017 Instruction Type:Provider Instructions for Treatment How to access health informa tion online Indication:Physical exam, routine Start:09-Mar-2017 Instruction Type:Patient Education How to access health informa tion online - Detail Indication:Physical exam, routine Start:09-Mar-2017 Instruction Type:Patient Education Patient Instructions Indication:Physical exam, routine Start:09-Mar-2017 Instruction Type:Provider Instructions for Treatment How to access health informa tion online Indication:Impaired fasting glucose Start:14-Jan-2016 Instruction Type:Patient Education How to access health informa tion online - Detail Indication:Impaired fasting glucose Start:14-Jan-2016 Instruction Type:Patient Education Patient Instructions Indication:Impaired fasting glucose Start:14-Jan-2016 Instruction Type:Provider Instructions for Treatment How to access health informa tion online Indication:Impaired fasting glucose Start:09-Sep-2015 Instruction Type:Patient Education How to access health informa tion online - Detail Indication:Impaired fasting glucose Start:09-Sep-2015 Instruction Type:Patient Education Patient Instructions Indication:Impaired fasting glucose Start:09-Sep-2015 Instruction Type:Provider Instructions for Treatment How to access health informa tion online Indication:Physical exam, routine Start:11-Jun-2015 Instruction Type:Patient Education How to access health informa tion online - Detail Indication:Physical exam, routine Start:11-Jun-2015 Instruction Type:Patient Education Patient Instructions Indication:Physical exam, routine Start:11-Jun-2015 Instruction Type:Provider Instructions for Treatment Patient Instructions Indication:Low Back Pain (Renamed from LBP (low back pain)) Start:14-Nov-2013 Instruction Type:Provider Instructions for Treatment Patient Instructions Indication:Low Back Pain (Renamed from LBP (low back pain)) Start:10-Oct-2013 Instruction Type:Provider Instructions for Treatment Patient Instructions Indication:Anxiety Start:03-Jan-2013 Instruction Type:Provider Instructions for Treatment [facility]; [facility] Work Phone: Instructions* Name Dates Details Patient Instructions Indication:Non-smoker Start:09-Jan-2022 Instruction Type:Provider Instructions for Treatment How to Access Health Informa tion Online using Patient Portal and [employer] Indication:Non-smoker Start:09-Jan-2022 Instruction Type:Patient Education Patient Instructions Indication:BMI 25.0-25.9,adult Start:12-Dec-2021 Instruction Type:Provider Instructions for Treatment How to Access Health Informa tion Online using Patient Portal and [employer] Indication:BMI 25.0-25.9,adult Start:12-Dec-2021 Instruction Type:Patient Education How to Access Health Informa tion Online using Patient Portal and [employer] Indication:Non-smoker Start:10-Jul-2021 Instruction Type:Patient Education Patient Instructions Indication:Non-smoker Start:10-Jul-2021 Instruction Type:Provider Instructions for Treatment Patient Instructions Indication:BMI 23.0-23.9, adult Start:01-Nov-2020 Instruction Type:Provider Instructions for Treatment How to Access Health Informa tion Online using Patient Portal and [employer] Indication:BMI 23.0-23.9, adult Start:01-Nov-2020 Instruction Type:Patient Education Patient Instructions Indication:Non-smoker Start:10-Apr-2020 Instruction Type:Provider Instructions for Treatment How to Access Health Informa tion Online using Patient Portal and [employer] Indication:Non-smoker Start:10-Apr-2020 Instruction Type:Patient Education How to access health informa tion online Indication:BMI 30.0-30.9,adult Start:10-Jan-2020 Instruction Type:Patient Education How to access health informa tion online - Detail Indication:BMI 30.0-30.9,adult Start:10-Jan-2020 Instruction Type:Patient Education Patient Instructions Indication:BMI 30.0-30.9,adult Start:10-Jan-2020 Instruction Type:Provider Instructions for Treatment How to access health informa tion online Indication:Non-smoker Start:01-Sep-2019 Instruction Type:Patient Education How to access health informa tion online - Detail Indication:Non-smoker Start:01-Sep-2019 Instruction Type:Patient Education Patient Instructions Indication:Non-smoker Start:01-Sep-2019 Instruction Type:Provider Instructions for Treatment How to access health informa tion online Indication:Non-smoker Start:05-May-2019 Instruction Type:Patient Education How to access health informa tion online - Detail Indication:Non-smoker Start:05-May-2019 Instruction Type:Patient Education Patient Instructions Indication:Non-smoker Start:05-May-2019 Instruction Type:Provider Instructions for Treatment How to access health informa tion online Indication:BMI 30.0-30.9,adult Start:24-Mar-2019 Instruction Type:Patient Education How to access health informa tion online - Detail Indication:BMI 30.0-30.9,adult Start:24-Mar-2019 Instruction Type:Patient Education Patient Instructions Indication:BMI 30.0-30.9,adult Start:24-Mar-2019 Instruction Type:Provider Instructions for Treatment How to access health informa tion online Indication:BMI 29.0-29.9,adult Start:28-Oct-2018 Instruction Type:Patient Education Patient Instructions Indication:BMI 29.0-29.9,adult Start:28-Oct-2018 Instruction Type:Provider Instructions for Treatment How to access health informa tion online Indication:Non-smoker Start:29-Apr-2018 Instruction Type:Patient Education How to access health informa tion online - Detail Indication:Non-smoker Start:29-Apr-2018 Instruction Type:Patient Education Patient Instructions Indication:Non-smoker Start:29-Apr-2018 Instruction Type:Provider Instructions for Treatment How to access health informa tion online Indication:BMI 26.0-26.9,adult Start:18-Feb-2018 Instruction Type:Patient Education How to access health informa tion online Indication:BMI 26.0-26.9,adult Start:18-Feb-2018 Instruction Type:Patient Education How to access health informa tion online - Detail Indication:BMI 26.0-26.9,adult Start:18-Feb-2018 Instruction Type:Patient Education Patient Instructions Indication:BMI 26.0-26.9,adult Start:18-Feb-2018 Instruction Type:Provider Instructions for Treatment How to access health informa tion online Indication:Current nonsmoker (Renamed from Current non-smoker) Start:21-Apr-2017 Instruction Type:Patient Education How to access health informa tion online - Detail Indication:Current nonsmoker (Renamed from Current non-smoker) Start:21-Apr-2017 Instruction Type:Patient Education Patient Instructions Indication:Current nonsmoker (Renamed from Current non-smoker) Start:21-Apr-2017 Instruction Type:Provider Instructions for Treatment How to access health informa tion online Indication:BMI 30.0-30.9,adult Start:25-Mar-2017 Instruction Type:Patient Education How to access health informa tion online - Detail Indication:BMI 30.0-30.9,adult Start:25-Mar-2017 Instruction Type:Patient Education Patient Instructions Indication:BMI 30.0-30.9,adult Start:25-Mar-2017 Instruction Type:Provider Instructions for Treatment How to access health informa tion online Indication:Physical exam, routine Start:09-Mar-2017 Instruction Type:Patient Education How to access health informa tion online - Detail Indication:Physical exam, routine Start:09-Mar-2017 Instruction Type:Patient Education Patient Instructions Indication:Physical exam, routine Start:09-Mar-2017 Instruction Type:Provider Instructions for Treatment How to access health informa tion online Indication:Impaired fasting glucose Start:14-Jan-2016 Instruction Type:Patient Education How to access health informa tion online - Detail Indication:Impaired fasting glucose Start:14-Jan-2016 Instruction Type:Patient Education Patient Instructions Indication:Impaired fasting glucose Start:14-Jan-2016 Instruction Type:Provider Instructions for Treatment How to access health informa tion online Indication:Impaired fasting glucose Start:09-Sep-2015 Instruction Type:Patient Education How to access health informa tion online - Detail Indication:Impaired fasting glucose Start:09-Sep-2015 Instruction Type:Patient Education Patient Instructions Indication:Impaired fasting glucose Start:09-Sep-2015 Instruction Type:Provider Instructions for Treatment How to access health informa tion online Indication:Physical exam, routine Start:11-Jun-2015 Instruction Type:Patient Education How to access health informa tion online - Detail Indication:Physical exam, routine Start:11-Jun-2015 Instruction Type:Patient Education Patient Instructions Indication:Physical exam, routine Start:11-Jun-2015 Instruction Type:Provider Instructions for Treatment Patient Instructions Indication:Low Back Pain (Renamed from LBP (low back pain)) Start:14-Nov-2013 Instruction Type:Provider Instructions for Treatment Patient Instructions Indication:Low Back Pain (Renamed from LBP (low back pain)) Start:10-Oct-2013 Instruction Type:Provider Instructions for Treatment Patient Instructions Indication:Anxiety Start:03-Jan-2013 Instruction Type:Provider Instructions for Treatment [facility]; [facility] Work Phone: Instructions* Name Dates Details Patient Instructions Indication:BMI 25.0-25.9,adult Start:03-Jul-2022 Instruction Type:Provider Instructions for Treatment How to Access Health Informa tion Online using Patient Portal and [employer]rd [employer] Indication:BMI 25.0-25.9,adult Start:03-Jul-2022 Instruction Type:Patient Education Patient Instructions Indication:Non-smoker Start:09-Jan-2022 Instruction Type:Provider Instructions for Treatment How to Access Health Informa tion Online using Patient Portal and [employer] Apps Indication:Non-smoker Start:09-Jan-2022 Instruction Type:Patient Education Patient Instructions Indication:BMI 25.0-25.9,adult Start:12-Dec-2021 Instruction Type:Provider Instructions for Treatment How to Access Health Informa tion Online using Patient Portal and [employer] Apps Indication:BMI 25.0-25.9,adult Start:12-Dec-2021 Instruction Type:Patient Education How to Access Health Informa tion Online using Patient Portal and [employer] Apps Indication:Non-smoker Start:10-Jul-2021 Instruction Type:Patient Education Patient Instructions Indication:Non-smoker Start:10-Jul-2021 Instruction Type:Provider Instructions for Treatment Patient Instructions Indication:BMI 23.0-23.9, adult Start:01-Nov-2020 Instruction Type:Provider Instructions for Treatment How to Access Health Informa tion Online using Patient Portal and [employer] Indication:BMI 23.0-23.9, adult Start:01-Nov-2020 Instruction Type:Patient Education Patient Instructions Indication:Non-smoker Start:10-Apr-2020 Instruction Type:Provider Instructions for Treatment How to Access Health Informa tion Online using Patient Portal and [employer] Indication:Non-smoker Start:10-Apr-2020 Instruction Type:Patient Education How to access health informa tion online Indication:BMI 30.0-30.9,adult Start:10-Jan-2020 Instruction Type:Patient Education How to access health informa tion online - Detail Indication:BMI 30.0-30.9,adult Start:10-Jan-2020 Instruction Type:Patient Education Patient Instructions Indication:BMI 30.0-30.9,adult Start:10-Jan-2020 Instruction Type:Provider Instructions for Treatment How to access health informa tion online Indication:Non-smoker Start:01-Sep-2019 Instruction Type:Patient Education How to access health informa tion online - Detail Indication:Non-smoker Start:01-Sep-2019 Instruction Type:Patient Education Patient Instructions Indication:Non-smoker Start:01-Sep-2019 Instruction Type:Provider Instructions for Treatment How to access health informa tion online Indication:Non-smoker Start:05-May-2019 Instruction Type:Patient Education How to access health informa tion online - Detail Indication:Non-smoker Start:05-May-2019 Instruction Type:Patient Education Patient Instructions Indication:Non-smoker Start:05-May-2019 Instruction Type:Provider Instructions for Treatment How to access health informa tion online Indication:BMI 30.0-30.9,adult Start:24-Mar-2019 Instruction Type:Patient Education How to access health informa tion online - Detail Indication:BMI 30.0-30.9,adult Start:24-Mar-2019 Instruction Type:Patient Education Patient Instructions Indication:BMI 30.0-30.9,adult Start:24-Mar-2019 Instruction Type:Provider Instructions for Treatment How to access health informa tion online Indication:BMI 29.0-29.9,adult Start:28-Oct-2018 Instruction Type:Patient Education Patient Instructions Indication:BMI 29.0-29.9,adult Start:28-Oct-2018 Instruction Type:Provider Instructions for Treatment How to access health informa tion online Indication:Non-smoker Start:29-Apr-2018 Instruction Type:Patient Education How to access health informa tion online - Detail Indication:Non-smoker Start:29-Apr-2018 Instruction Type:Patient Education Patient Instructions Indication:Non-smoker Start:29-Apr-2018 Instruction Type:Provider Instructions for Treatment How to access health informa tion online Indication:BMI 26.0-26.9,adult Start:18-Feb-2018 Instruction Type:Patient Education How to access health informa tion online Indication:BMI 26.0-26.9,adult Start:18-Feb-2018 Instruction Type:Patient Education How to access health informa tion online - Detail Indication:BMI 26.0-26.9,adult Start:18-Feb-2018 Instruction Type:Patient Education Patient Instructions Indication:BMI 26.0-26.9,adult Start:18-Feb-2018 Instruction Type:Provider Instructions for Treatment How to access health informa tion online Indication:Current nonsmoker (Renamed from Current non-smoker) Start:21-Apr-2017 Instruction Type:Patient Education How to access health informa tion online - Detail Indication:Current nonsmoker (Renamed from Current non-smoker) Start:21-Apr-2017 Instruction Type:Patient Education Patient Instructions Indication:Current nonsmoker (Renamed from Current non-smoker) Start:21-Apr-2017 Instruction Type:Provider Instructions for Treatment How to access health informa tion online Indication:BMI 30.0-30.9,adult Start:25-Mar-2017 Instruction Type:Patient Education How to access health informa tion online - Detail Indication:BMI 30.0-30.9,adult Start:25-Mar-2017 Instruction Type:Patient Education Patient Instructions Indication:BMI 30.0-30.9,adult Start:25-Mar-2017 Instruction Type:Provider Instructions for Treatment How to access health informa tion online Indication:Physical exam, routine Start:09-Mar-2017 Instruction Type:Patient Education How to access health informa tion online - Detail Indication:Physical exam, routine Start:09-Mar-2017 Instruction Type:Patient Education Patient Instructions Indication:Physical exam, routine Start:09-Mar-2017 Instruction Type:Provider Instructions for Treatment How to access health informa tion online Indication:Impaired fasting glucose Start:14-Jan-2016 Instruction Type:Patient Education How to access health informa tion online - Detail Indication:Impaired fasting glucose Start:14-Jan-2016 Instruction Type:Patient Education Patient Instructions Indication:Impaired fasting glucose Start:14-Jan-2016 Instruction Type:Provider Instructions for Treatment How to access health informa tion online Indication:Impaired fasting glucose Start:09-Sep-2015 Instruction Type:Patient Education How to access health informa tion online - Detail Indication:Impaired fasting glucose Start:09-Sep-2015 Instruction Type:Patient Education Patient Instructions Indication:Impaired fasting glucose Start:09-Sep-2015 Instruction Type:Provider Instructions for Treatment How to access health informa tion online Indication:Physical exam, routine Start:11-Jun-2015 Instruction Type:Patient Education How to access health informa tion online - Detail Indication:Physical exam, routine Start:11-Jun-2015 Instruction Type:Patient Education Patient Instructions Indication:Physical exam, routine Start:11-Jun-2015 Instruction Type:Provider Instructions for Treatment Patient Instructions Indication:Low Back Pain (Renamed from LBP (low back pain)) Start:14-Nov-2013 Instruction Type:Provider Instructions for Treatment Patient Instructions Indication:Low Back Pain (Renamed from LBP (low back pain)) Start:10-Oct-2013 Instruction Type:Provider Instructions for Treatment Patient Instructions Indication:Anxiety Start:03-Jan-2013 Instruction Type:Provider Instructions for Treatment [facility]; [facility] Work Phone: Instructions* Name Dates Details Patient Instructions Indication:BMI 25.0-25.9,adult Start:03-Jul-2022 Instruction Type:Provider Instructions for Treatment How to Access Health Informa tion Online using Patient Portal and [employer] Indication:BMI 25.0-25.9,adult Start:03-Jul-2022 Instruction Type:Patient Education Patient Instructions Indication:Non-smoker Start:09-Jan-2022 Instruction Type:Provider Instructions for Treatment How to Access Health Informa tion Online using Patient Portal and [employer] Indication:Non-smoker Start:09-Jan-2022 Instruction Type:Patient Education Patient Instructions Indication:BMI 25.0-25.9,adult Start:12-Dec-2021 Instruction Type:Provider Instructions for Treatment How to Access Health Informa tion Online using Patient Portal and [employer] Indication:BMI 25.0-25.9,adult Start:12-Dec-2021 Instruction Type:Patient Education How to Access Health Informa tion Online using Patient Portal and [employer] Indication:Non-smoker Start:10-Jul-2021 Instruction Type:Patient Education Patient Instructions Indication:Non-smoker Start:10-Jul-2021 Instruction Type:Provider Instructions for Treatment Patient Instructions Indication:BMI 23.0-23.9, adult Start:01-Nov-2020 Instruction Type:Provider Instructions for Treatment How to Access Health Informa tion Online using Patient Portal and [employer] Indication:BMI 23.0-23.9, adult Start:01-Nov-2020 Instruction Type:Patient Education Patient Instructions Indication:Non-smoker Start:10-Apr-2020 Instruction Type:Provider Instructions for Treatment How to Access Health Informa tion Online using Patient Portal and [employer] Indication:Non-smoker Start:10-Apr-2020 Instruction Type:Patient Education How to access health informa tion online Indication:BMI 30.0-30.9,adult Start:10-Jan-2020 Instruction Type:Patient Education How to access health informa tion online - Detail Indication:BMI 30.0-30.9,adult Start:10-Jan-2020 Instruction Type:Patient Education Patient Instructions Indication:BMI 30.0-30.9,adult Start:10-Jan-2020 Instruction Type:Provider Instructions for Treatment How to access health informa tion online Indication:Non-smoker Start:01-Sep-2019 Instruction Type:Patient Education How to access health informa tion online - Detail Indication:Non-smoker Start:01-Sep-2019 Instruction Type:Patient Education Patient Instructions Indication:Non-smoker Start:01-Sep-2019 Instruction Type:Provider Instructions for Treatment How to access health informa tion online Indication:Non-smoker Start:05-May-2019 Instruction Type:Patient Education How to access health informa tion online - Detail Indication:Non-smoker Start:05-May-2019 Instruction Type:Patient Education Patient Instructions Indication:Non-smoker Start:05-May-2019 Instruction Type:Provider Instructions for Treatment How to access health informa tion online Indication:BMI 30.0-30.9,adult Start:24-Mar-2019 Instruction Type:Patient Education How to access health informa tion online - Detail Indication:BMI 30.0-30.9,adult Start:24-Mar-2019 Instruction Type:Patient Education Patient Instructions Indication:BMI 30.0-30.9,adult Start:24-Mar-2019 Instruction Type:Provider Instructions for Treatment How to access health informa tion online Indication:BMI 29.0-29.9,adult Start:28-Oct-2018 Instruction Type:Patient Education Patient Instructions Indication:BMI 29.0-29.9,adult Start:28-Oct-2018 Instruction Type:Provider Instructions for Treatment How to access health informa tion online Indication:Non-smoker Start:29-Apr-2018 Instruction Type:Patient Education How to access health informa tion online - Detail Indication:Non-smoker Start:29-Apr-2018 Instruction Type:Patient Education Patient Instructions Indication:Non-smoker Start:29-Apr-2018 Instruction Type:Provider Instructions for Treatment How to access health informa tion online Indication:BMI 26.0-26.9,adult Start:18-Feb-2018 Instruction Type:Patient Education How to access health informa tion online Indication:BMI 26.0-26.9,adult Start:18-Feb-2018 Instruction Type:Patient Education How to access health informa tion online - Detail Indication:BMI 26.0-26.9,adult Start:18-Feb-2018 Instruction Type:Patient Education Patient Instructions Indication:BMI 26.0-26.9,adult Start:18-Feb-2018 Instruction Type:Provider Instructions for Treatment How to access health informa tion online Indication:Current nonsmoker (Renamed from Current non-smoker) Start:21-Apr-2017 Instruction Type:Patient Education How to access health informa tion online - Detail Indication:Current nonsmoker (Renamed from Current non-smoker) Start:21-Apr-2017 Instruction Type:Patient Education Patient Instructions Indication:Current nonsmoker (Renamed from Current non-smoker) Start:21-Apr-2017 Instruction Type:Provider Instructions for Treatment How to access health informa tion online Indication:BMI 30.0-30.9,adult Start:25-Mar-2017 Instruction Type:Patient Education How to access health informa tion online - Detail Indication:BMI 30.0-30.9,adult Start:25-Mar-2017 Instruction Type:Patient Education Patient Instructions Indication:BMI 30.0-30.9,adult Start:25-Mar-2017 Instruction Type:Provider Instructions for Treatment How to access health informa tion online Indication:Physical exam, routine Start:09-Mar-2017 Instruction Type:Patient Education How to access health informa tion online - Detail Indication:Physical exam, routine Start:09-Mar-2017 Instruction Type:Patient Education Patient Instructions Indication:Physical exam, routine Start:09-Mar-2017 Instruction Type:Provider Instructions for Treatment How to access health informa tion online Indication:Impaired fasting glucose Start:14-Jan-2016 Instruction Type:Patient Education How to access health informa tion online - Detail Indication:Impaired fasting glucose Start:14-Jan-2016 Instruction Type:Patient Education Patient Instructions Indication:Impaired fasting glucose Start:14-Jan-2016 Instruction Type:Provider Instructions for Treatment How to access health informa tion online Indication:Impaired fasting glucose Start:09-Sep-2015 Instruction Type:Patient Education How to access health informa tion online - Detail Indication:Impaired fasting glucose Start:09-Sep-2015 Instruction Type:Patient Education Patient Instructions Indication:Impaired fasting glucose Start:09-Sep-2015 Instruction Type:Provider Instructions for Treatment How to access health informa tion online Indication:Physical exam, routine Start:11-Jun-2015 Instruction Type:Patient Education How to access health informa tion online - Detail Indication:Physical exam, routine Start:11-Jun-2015 Instruction Type:Patient Education Patient Instructions Indication:Physical exam, routine Start:11-Jun-2015 Instruction Type:Provider Instructions for Treatment Patient Instructions Indication:Low Back Pain (Renamed from LBP (low back pain)) Start:14-Nov-2013 Instruction Type:Provider Instructions for Treatment Patient Instructions Indication:Low Back Pain (Renamed from LBP (low back pain)) Start:10-Oct-2013 Instruction Type:Provider Instructions for Treatment Patient Instructions Indication:Anxiety Start:03-Jan-2013 Instruction Type:Provider Instructions for Treatment [facility]; [facility] Work Phone: Instructions* Name Dates Details Patient Instructions Indication:BMI 25.0-25.9,adult Start:02-Sep-2022 Instruction Type:Provider Instructions for Treatment How to Access Health Informa tion Online using Patient Portal and [employer] Indication:BMI 25.0-25.9,adult Start:02-Sep-2022 Instruction Type:Patient Education Patient Instructions Indication:BMI 25.0-25.9,adult Start:03-Jul-2022 Instruction Type:Provider Instructions for Treatment How to Access Health Informa tion Online using Patient Portal and [employer] Indication:BMI 25.0-25.9,adult Start:03-Jul-2022 Instruction Type:Patient Education Patient Instructions Indication:Non-smoker Start:09-Jan-2022 Instruction Type:Provider Instructions for Treatment How to Access Health Informa tion Online using Patient Portal and [employer] Indication:Non-smoker Start:09-Jan-2022 Instruction Type:Patient Education Patient Instructions Indication:BMI 25.0-25.9,adult Start:12-Dec-2021 Instruction Type:Provider Instructions for Treatment How to Access Health Informa tion Online using Patient Portal and [employer] Indication:BMI 25.0-25.9,adult Start:12-Dec-2021 Instruction Type:Patient Education How to Access Health Informa tion Online using Patient Portal and [employer] Indication:Non-smoker Start:10-Jul-2021 Instruction Type:Patient Education Patient Instructions Indication:Non-smoker Start:10-Jul-2021 Instruction Type:Provider Instructions for Treatment Patient Instructions Indication:BMI 23.0-23.9, adult Start:01-Nov-2020 Instruction Type:Provider Instructions for Treatment How to Access Health Informa tion Online using Patient Portal and [employer] Indication:BMI 23.0-23.9, adult Start:01-Nov-2020 Instruction Type:Patient Education Patient Instructions Indication:Non-smoker Start:10-Apr-2020 Instruction Type:Provider Instructions for Treatment How to Access Health Informa tion Online using Patient Portal and [employer] Indication:Non-smoker Start:10-Apr-2020 Instruction Type:Patient Education How to access health informa tion online Indication:BMI 30.0-30.9,adult Start:10-Jan-2020 Instruction Type:Patient Education How to access health informa tion online - Detail Indication:BMI 30.0-30.9,adult Start:10-Jan-2020 Instruction Type:Patient Education Patient Instructions Indication:BMI 30.0-30.9,adult Start:10-Jan-2020 Instruction Type:Provider Instructions for Treatment How to access health informa tion online Indication:Non-smoker Start:01-Sep-2019 Instruction Type:Patient Education How to access health informa tion online - Detail Indication:Non-smoker Start:01-Sep-2019 Instruction Type:Patient Education Patient Instructions Indication:Non-smoker Start:01-Sep-2019 Instruction Type:Provider Instructions for Treatment How to access health informa tion online Indication:Non-smoker Start:05-May-2019 Instruction Type:Patient Education How to access health informa tion online - Detail Indication:Non-smoker Start:05-May-2019 Instruction Type:Patient Education Patient Instructions Indication:Non-smoker Start:05-May-2019 Instruction Type:Provider Instructions for Treatment How to access health informa tion online Indication:BMI 30.0-30.9,adult Start:24-Mar-2019 Instruction Type:Patient Education How to access health informa tion online - Detail Indication:BMI 30.0-30.9,adult Start:24-Mar-2019 Instruction Type:Patient Education Patient Instructions Indication:BMI 30.0-30.9,adult Start:24-Mar-2019 Instruction Type:Provider Instructions for Treatment How to access health informa tion online Indication:BMI 29.0-29.9,adult Start:28-Oct-2018 Instruction Type:Patient Education Patient Instructions Indication:BMI 29.0-29.9,adult Start:28-Oct-2018 Instruction Type:Provider Instructions for Treatment How to access health informa tion online Indication:Non-smoker Start:29-Apr-2018 Instruction Type:Patient Education How to access health informa tion online - Detail Indication:Non-smoker Start:29-Apr-2018 Instruction Type:Patient Education Patient Instructions Indication:Non-smoker Start:29-Apr-2018 Instruction Type:Provider Instructions for Treatment How to access health informa tion online Indication:BMI 26.0-26.9,adult Start:18-Feb-2018 Instruction Type:Patient Education How to access health informa tion online Indication:BMI 26.0-26.9,adult Start:18-Feb-2018 Instruction Type:Patient Education How to access health informa tion online - Detail Indication:BMI 26.0-26.9,adult Start:18-Feb-2018 Instruction Type:Patient Education Patient Instructions Indication:BMI 26.0-26.9,adult Start:18-Feb-2018 Instruction Type:Provider Instructions for Treatment How to access health informa tion online Indication:Current nonsmoker (Renamed from Current non-smoker) Start:21-Apr-2017 Instruction Type:Patient Education How to access health informa tion online - Detail Indication:Current nonsmoker (Renamed from Current non-smoker) Start:21-Apr-2017 Instruction Type:Patient Education Patient Instructions Indication:Current nonsmoker (Renamed from Current non-smoker) Start:21-Apr-2017 Instruction Type:Provider Instructions for Treatment How to access health informa tion online Indication:BMI 30.0-30.9,adult Start:25-Mar-2017 Instruction Type:Patient Education How to access health informa tion online - Detail Indication:BMI 30.0-30.9,adult Start:25-Mar-2017 Instruction Type:Patient Education Patient Instructions Indication:BMI 30.0-30.9,adult Start:25-Mar-2017 Instruction Type:Provider Instructions for Treatment How to access health informa tion online Indication:Physical exam, routine Start:09-Mar-2017 Instruction Type:Patient Education How to access health informa tion online - Detail Indication:Physical exam, routine Start:09-Mar-2017 Instruction Type:Patient Education Patient Instructions Indication:Physical exam, routine Start:09-Mar-2017 Instruction Type:Provider Instructions for Treatment How to access health informa tion online Indication:Impaired fasting glucose Start:14-Jan-2016 Instruction Type:Patient Education How to access health informa tion online - Detail Indication:Impaired fasting glucose Start:14-Jan-2016 Instruction Type:Patient Education Patient Instructions Indication:Impaired fasting glucose Start:14-Jan-2016 Instruction Type:Provider Instructions for Treatment How to access health informa tion online Indication:Impaired fasting glucose Start:09-Sep-2015 Instruction Type:Patient Education How to access health informa tion online - Detail Indication:Impaired fasting glucose Start:09-Sep-2015 Instruction Type:Patient Education Patient Instructions Indication:Impaired fasting glucose Start:09-Sep-2015 Instruction Type:Provider Instructions for Treatment How to access health informa tion online Indication:Physical exam, routine Start:11-Jun-2015 Instruction Type:Patient Education How to access health informa tion online - Detail Indication:Physical exam, routine Start:11-Jun-2015 Instruction Type:Patient Education Patient Instructions Indication:Physical exam, routine Start:11-Jun-2015 Instruction Type:Provider Instructions for Treatment Patient Instructions Indication:Low Back Pain (Renamed from LBP (low back pain)) Start:14-Nov-2013 Instruction Type:Provider Instructions for Treatment Patient Instructions Indication:Low Back Pain (Renamed from LBP (low back pain)) Start:10-Oct-2013 Instruction Type:Provider Instructions for Treatment Patient Instructions Indication:Anxiety Start:03-Jan-2013 Instruction Type:Provider Instructions for Treatment [facility]; [facility] Work Phone: Instructions* Name Dates Details Patient Instructions Indication:HTN (hypertension) Start:08-Jan-2023 Instruction Type:Provider Instructions for Treatment How to Access Health Informa tion Online using Patient Portal and [employer] Indication:HTN (hypertension) Start:08-Jan-2023 Instruction Type:Patient Education Patient Instructions Indication:BMI 25.0-25.9,adult Start:02-Sep-2022 Instruction Type:Provider Instructions for Treatment How to Access Health Informa tion Online using Patient Portal and [employer] Indication:BMI 25.0-25.9,adult Start:02-Sep-2022 Instruction Type:Patient Education Patient Instructions Indication:BMI 25.0-25.9,adult Start:03-Jul-2022 Instruction Type:Provider Instructions for Treatment How to Access Health Informa tion Online using Patient Portal and [employer] Indication:BMI 25.0-25.9,adult Start:03-Jul-2022 Instruction Type:Patient Education Patient Instructions Indication:Non-smoker Start:09-Jan-2022 Instruction Type:Provider Instructions for Treatment How to Access Health Informa tion Online using Patient Portal and [employer] Indication:Non-smoker Start:09-Jan-2022 Instruction Type:Patient Education Patient Instructions Indication:BMI 25.0-25.9,adult Start:12-Dec-2021 Instruction Type:Provider Instructions for Treatment How to Access Health Informa tion Online using Patient Portal and [employer] Indication:BMI 25.0-25.9,adult Start:12-Dec-2021 Instruction Type:Patient Education How to Access Health Informa tion Online using Patient Portal and [employer] Indication:Non-smoker Start:10-Jul-2021 Instruction Type:Patient Education Patient Instructions Indication:Non-smoker Start:10-Jul-2021 Instruction Type:Provider Instructions for Treatment Patient Instructions Indication:BMI 23.0-23.9, adult Start:01-Nov-2020 Instruction Type:Provider Instructions for Treatment How to Access Health Informa tion Online using Patient Portal and [employer] Indication:BMI 23.0-23.9, adult Start:01-Nov-2020 Instruction Type:Patient Education Patient Instructions Indication:Non-smoker Start:10-Apr-2020 Instruction Type:Provider Instructions for Treatment How to Access Health Informa tion Online using Patient Portal and [employer] Indication:Non-smoker Start:10-Apr-2020 Instruction Type:Patient Education How to access health informa tion online Indication:BMI 30.0-30.9,adult Start:10-Jan-2020 Instruction Type:Patient Education How to access health informa tion online - Detail Indication:BMI 30.0-30.9,adult Start:10-Jan-2020 Instruction Type:Patient Education Patient Instructions Indication:BMI 30.0-30.9,adult Start:10-Jan-2020 Instruction Type:Provider Instructions for Treatment How to access health informa tion online Indication:Non-smoker Start:01-Sep-2019 Instruction Type:Patient Education How to access health informa tion online - Detail Indication:Non-smoker Start:01-Sep-2019 Instruction Type:Patient Education Patient Instructions Indication:Non-smoker Start:01-Sep-2019 Instruction Type:Provider Instructions for Treatment How to access health informa tion online Indication:Non-smoker Start:05-May-2019 Instruction Type:Patient Education How to access health informa tion online - Detail Indication:Non-smoker Start:05-May-2019 Instruction Type:Patient Education Patient Instructions Indication:Non-smoker Start:05-May-2019 Instruction Type:Provider Instructions for Treatment How to access health informa tion online Indication:BMI 30.0-30.9,adult Start:24-Mar-2019 Instruction Type:Patient Education How to access health informa tion online - Detail Indication:BMI 30.0-30.9,adult Start:24-Mar-2019 Instruction Type:Patient Education Patient Instructions Indication:BMI 30.0-30.9,adult Start:24-Mar-2019 Instruction Type:Provider Instructions for Treatment How to access health informa tion online Indication:BMI 29.0-29.9,adult Start:28-Oct-2018 Instruction Type:Patient Education Patient Instructions Indication:BMI 29.0-29.9,adult Start:28-Oct-2018 Instruction Type:Provider Instructions for Treatment How to access health informa tion online Indication:Non-smoker Start:29-Apr-2018 Instruction Type:Patient Education How to access health informa tion online - Detail Indication:Non-smoker Start:29-Apr-2018 Instruction Type:Patient Education Patient Instructions Indication:Non-smoker Start:29-Apr-2018 Instruction Type:Provider Instructions for Treatment How to access health informa tion online Indication:BMI 26.0-26.9,adult Start:18-Feb-2018 Instruction Type:Patient Education How to access health informa tion online Indication:BMI 26.0-26.9,adult Start:18-Feb-2018 Instruction Type:Patient Education How to access health informa tion online - Detail Indication:BMI 26.0-26.9,adult Start:18-Feb-2018 Instruction Type:Patient Education Patient Instructions Indication:BMI 26.0-26.9,adult Start:18-Feb-2018 Instruction Type:Provider Instructions for Treatment How to access health informa tion online Indication:Current nonsmoker (Renamed from Current non-smoker) Start:21-Apr-2017 Instruction Type:Patient Education How to access health informa tion online - Detail Indication:Current nonsmoker (Renamed from Current non-smoker) Start:21-Apr-2017 Instruction Type:Patient Education Patient Instructions Indication:Current nonsmoker (Renamed from Current non-smoker) Start:21-Apr-2017 Instruction Type:Provider Instructions for Treatment How to access health informa tion online Indication:BMI 30.0-30.9,adult Start:25-Mar-2017 Instruction Type:Patient Education How to access health informa tion online - Detail Indication:BMI 30.0-30.9,adult Start:25-Mar-2017 Instruction Type:Patient Education Patient Instructions Indication:BMI 30.0-30.9,adult Start:25-Mar-2017 Instruction Type:Provider Instructions for Treatment How to access health informa tion online Indication:Physical exam, routine Start:09-Mar-2017 Instruction Type:Patient Education How to access health informa tion online - Detail Indication:Physical exam, routine Start:09-Mar-2017 Instruction Type:Patient Education Patient Instructions Indication:Physical exam, routine Start:09-Mar-2017 Instruction Type:Provider Instructions for Treatment How to access health informa tion online Indication:Impaired fasting glucose Start:14-Jan-2016 Instruction Type:Patient Education How to access health informa tion online - Detail Indication:Impaired fasting glucose Start:14-Jan-2016 Instruction Type:Patient Education Patient Instructions Indication:Impaired fasting glucose Start:14-Jan-2016 Instruction Type:Provider Instructions for Treatment How to access health informa tion online Indication:Impaired fasting glucose Start:09-Sep-2015 Instruction Type:Patient Education How to access health informa tion online - Detail Indication:Impaired fasting glucose Start:09-Sep-2015 Instruction Type:Patient Education Patient Instructions Indication:Impaired fasting glucose Start:09-Sep-2015 Instruction Type:Provider Instructions for Treatment How to access health informa tion online Indication:Physical exam, routine Start:11-Jun-2015 Instruction Type:Patient Education How to access health informa tion online - Detail Indication:Physical exam, routine Start:11-Jun-2015 Instruction Type:Patient Education Patient Instructions Indication:Physical exam, routine Start:11-Jun-2015 Instruction Type:Provider Instructions for Treatment Patient Instructions Indication:Low Back Pain (Renamed from LBP (low back pain)) Start:14-Nov-2013 Instruction Type:Provider Instructions for Treatment Patient Instructions Indication:Low Back Pain (Renamed from LBP (low back pain)) Start:10-Oct-2013 Instruction Type:Provider Instructions for Treatment Patient Instructions Indication:Anxiety Start:03-Jan-2013 Instruction Type:Provider Instructions for Treatment [facility]; [facility] Work Phone: Instructions* Name Dates Details Patient Instructions Indication:HTN (hypertension) Start:08-Jan-2023 Instruction Type:Provider Instructions for Treatment How to Access Health Informa tion Online using Patient Portal and [employer] Indication:HTN (hypertension) Start:08-Jan-2023 Instruction Type:Patient Education Patient Instructions Indication:BMI 25.0-25.9,adult Start:02-Sep-2022 Instruction Type:Provider Instructions for Treatment How to Access Health Informa tion Online using Patient Portal and [employer] Indication:BMI 25.0-25.9,adult Start:02-Sep-2022 Instruction Type:Patient Education Patient Instructions Indication:BMI 25.0-25.9,adult Start:03-Jul-2022 Instruction Type:Provider Instructions for Treatment How to Access Health Informa tion Online using Patient Portal and [employer] Indication:BMI 25.0-25.9,adult Start:03-Jul-2022 Instruction Type:Patient Education Patient Instructions Indication:Non-smoker Start:09-Jan-2022 Instruction Type:Provider Instructions for Treatment How to Access Health Informa tion Online using Patient Portal and [employer] Indication:Non-smoker Start:09-Jan-2022 Instruction Type:Patient Education Patient Instructions Indication:BMI 25.0-25.9,adult Start:12-Dec-2021 Instruction Type:Provider Instructions for Treatment How to Access Health Informa tion Online using Patient Portal and [employer] Indication:BMI 25.0-25.9,adult Start:12-Dec-2021 Instruction Type:Patient Education How to Access Health Informa tion Online using Patient Portal and [employer] Indication:Non-smoker Start:10-Jul-2021 Instruction Type:Patient Education Patient Instructions Indication:Non-smoker Start:10-Jul-2021 Instruction Type:Provider Instructions for Treatment Patient Instructions Indication:BMI 23.0-23.9, adult Start:01-Nov-2020 Instruction Type:Provider Instructions for Treatment How to Access Health Informa tion Online using Patient Portal and [employer] Indication:BMI 23.0-23.9, adult Start:01-Nov-2020 Instruction Type:Patient Education Patient Instructions Indication:Non-smoker Start:10-Apr-2020 Instruction Type:Provider Instructions for Treatment How to Access Health Informa tion Online using Patient Portal and [employer] Indication:Non-smoker Start:10-Apr-2020 Instruction Type:Patient Education How to access health informa tion online Indication:BMI 30.0-30.9,adult Start:10-Jan-2020 Instruction Type:Patient Education How to access health informa tion online - Detail Indication:BMI 30.0-30.9,adult Start:10-Jan-2020 Instruction Type:Patient Education Patient Instructions Indication:BMI 30.0-30.9,adult Start:10-Jan-2020 Instruction Type:Provider Instructions for Treatment How to access health informa tion online Indication:Non-smoker Start:01-Sep-2019 Instruction Type:Patient Education How to access health informa tion online - Detail Indication:Non-smoker Start:01-Sep-2019 Instruction Type:Patient Education Patient Instructions Indication:Non-smoker Start:01-Sep-2019 Instruction Type:Provider Instructions for Treatment How to access health informa tion online Indication:Non-smoker Start:05-May-2019 Instruction Type:Patient Education How to access health informa tion online - Detail Indication:Non-smoker Start:05-May-2019 Instruction Type:Patient Education Patient Instructions Indication:Non-smoker Start:05-May-2019 Instruction Type:Provider Instructions for Treatment How to access health informa tion online Indication:BMI 30.0-30.9,adult Start:24-Mar-2019 Instruction Type:Patient Education How to access health informa tion online - Detail Indication:BMI 30.0-30.9,adult Start:24-Mar-2019 Instruction Type:Patient Education Patient Instructions Indication:BMI 30.0-30.9,adult Start:24-Mar-2019 Instruction Type:Provider Instructions for Treatment How to access health informa tion online Indication:BMI 29.0-29.9,adult Start:28-Oct-2018 Instruction Type:Patient Education Patient Instructions Indication:BMI 29.0-29.9,adult Start:28-Oct-2018 Instruction Type:Provider Instructions for Treatment How to access health informa tion online Indication:Non-smoker Start:29-Apr-2018 Instruction Type:Patient Education How to access health informa tion online - Detail Indication:Non-smoker Start:29-Apr-2018 Instruction Type:Patient Education Patient Instructions Indication:Non-smoker Start:29-Apr-2018 Instruction Type:Provider Instructions for Treatment How to access health informa tion online Indication:BMI 26.0-26.9,adult Start:18-Feb-2018 Instruction Type:Patient Education How to access health informa tion online Indication:BMI 26.0-26.9,adult Start:18-Feb-2018 Instruction Type:Patient Education How to access health informa tion online - Detail Indication:BMI 26.0-26.9,adult Start:18-Feb-2018 Instruction Type:Patient Education Patient Instructions Indication:BMI 26.0-26.9,adult Start:18-Feb-2018 Instruction Type:Provider Instructions for Treatment How to access health informa tion online Indication:Current nonsmoker (Renamed from Current non-smoker) Start:21-Apr-2017 Instruction Type:Patient Education How to access health informa tion online - Detail Indication:Current nonsmoker (Renamed from Current non-smoker) Start:21-Apr-2017 Instruction Type:Patient Education Patient Instructions Indication:Current nonsmoker (Renamed from Current non-smoker) Start:21-Apr-2017 Instruction Type:Provider Instructions for Treatment How to access health informa tion online Indication:BMI 30.0-30.9,adult Start:25-Mar-2017 Instruction Type:Patient Education How to access health informa tion online - Detail Indication:BMI 30.0-30.9,adult Start:25-Mar-2017 Instruction Type:Patient Education Patient Instructions Indication:BMI 30.0-30.9,adult Start:25-Mar-2017 Instruction Type:Provider Instructions for Treatment How to access health informa tion online Indication:Physical exam, routine Start:09-Mar-2017 Instruction Type:Patient Education How to access health informa tion online - Detail Indication:Physical exam, routine Start:09-Mar-2017 Instruction Type:Patient Education Patient Instructions Indication:Physical exam, routine Start:09-Mar-2017 Instruction Type:Provider Instructions for Treatment How to access health informa tion online Indication:Impaired fasting glucose Start:14-Jan-2016 Instruction Type:Patient Education How to access health informa tion online - Detail Indication:Impaired fasting glucose Start:14-Jan-2016 Instruction Type:Patient Education Patient Instructions Indication:Impaired fasting glucose Start:14-Jan-2016 Instruction Type:Provider Instructions for Treatment How to access health informa tion online Indication:Impaired fasting glucose Start:09-Sep-2015 Instruction Type:Patient Education How to access health informa tion online - Detail Indication:Impaired fasting glucose Start:09-Sep-2015 Instruction Type:Patient Education Patient Instructions Indication:Impaired fasting glucose Start:09-Sep-2015 Instruction Type:Provider Instructions for Treatment How to access health informa tion online Indication:Physical exam, routine Start:11-Jun-2015 Instruction Type:Patient Education How to access health informa tion online - Detail Indication:Physical exam, routine Start:11-Jun-2015 Instruction Type:Patient Education Patient Instructions Indication:Physical exam, routine Start:11-Jun-2015 Instruction Type:Provider Instructions for Treatment Patient Instructions Indication:Low Back Pain (Renamed from LBP (low back pain)) Start:14-Nov-2013 Instruction Type:Provider Instructions for Treatment Patient Instructions Indication:Low Back Pain (Renamed from LBP (low back pain)) Start:10-Oct-2013 Instruction Type:Provider Instructions for Treatment Patient Instructions Indication:Anxiety Start:03-Jan-2013 Instruction Type:Provider Instructions for Treatment [facility]; [facility] Work Phone: Instructions* Name Dates Details Patient Instructions Indication:HTN (hypertension) Start:08-Jan-2023 Instruction Type:Provider Instructions for Treatment How to Access Health Informa tion Online using Patient Portal and [employer] Indication:HTN (hypertension) Start:08-Jan-2023 Instruction Type:Patient Education Patient Instructions Indication:BMI 25.0-25.9,adult Start:02-Sep-2022 Instruction Type:Provider Instructions for Treatment How to Access Health Informa tion Online using Patient Portal and [employer] Indication:BMI 25.0-25.9,adult Start:02-Sep-2022 Instruction Type:Patient Education Patient Instructions Indication:BMI 25.0-25.9,adult Start:03-Jul-2022 Instruction Type:Provider Instructions for Treatment How to Access Health Informa tion Online using Patient Portal and [employer] Indication:BMI 25.0-25.9,adult Start:03-Jul-2022 Instruction Type:Patient Education Patient Instructions Indication:Non-smoker Start:09-Jan-2022 Instruction Type:Provider Instructions for Treatment How to Access Health Informa tion Online using Patient Portal and [employer] Indication:Non-smoker Start:09-Jan-2022 Instruction Type:Patient Education Patient Instructions Indication:BMI 25.0-25.9,adult Start:12-Dec-2021 Instruction Type:Provider Instructions for Treatment How to Access Health Informa tion Online using Patient Portal and [employer] Indication:BMI 25.0-25.9,adult Start:12-Dec-2021 Instruction Type:Patient Education How to Access Health Informa tion Online using Patient Portal and [employer] Indication:Non-smoker Start:10-Jul-2021 Instruction Type:Patient Education Patient Instructions Indication:Non-smoker Start:10-Jul-2021 Instruction Type:Provider Instructions for Treatment Patient Instructions Indication:BMI 23.0-23.9, adult Start:01-Nov-2020 Instruction Type:Provider Instructions for Treatment How to Access Health Informa tion Online using Patient Portal and [employer] Indication:BMI 23.0-23.9, adult Start:01-Nov-2020 Instruction Type:Patient Education Patient Instructions Indication:Non-smoker Start:10-Apr-2020 Instruction Type:Provider Instructions for Treatment How to Access Health Informa tion Online using Patient Portal and [employer] Indication:Non-smoker Start:10-Apr-2020 Instruction Type:Patient Education How to access health informa tion online Indication:BMI 30.0-30.9,adult Start:10-Jan-2020 Instruction Type:Patient Education How to access health informa tion online - Detail Indication:BMI 30.0-30.9,adult Start:10-Jan-2020 Instruction Type:Patient Education Patient Instructions Indication:BMI 30.0-30.9,adult Start:10-Jan-2020 Instruction Type:Provider Instructions for Treatment How to access health informa tion online Indication:Non-smoker Start:01-Sep-2019 Instruction Type:Patient Education How to access health informa tion online - Detail Indication:Non-smoker Start:01-Sep-2019 Instruction Type:Patient Education Patient Instructions Indication:Non-smoker Start:01-Sep-2019 Instruction Type:Provider Instructions for Treatment How to access health informa tion online Indication:Non-smoker Start:05-May-2019 Instruction Type:Patient Education How to access health informa tion online - Detail Indication:Non-smoker Start:05-May-2019 Instruction Type:Patient Education Patient Instructions Indication:Non-smoker Start:05-May-2019 Instruction Type:Provider Instructions for Treatment How to access health informa tion online Indication:BMI 30.0-30.9,adult Start:24-Mar-2019 Instruction Type:Patient Education How to access health informa tion online - Detail Indication:BMI 30.0-30.9,adult Start:24-Mar-2019 Instruction Type:Patient Education Patient Instructions Indication:BMI 30.0-30.9,adult Start:24-Mar-2019 Instruction Type:Provider Instructions for Treatment How to access health informa tion online Indication:BMI 29.0-29.9,adult Start:28-Oct-2018 Instruction Type:Patient Education Patient Instructions Indication:BMI 29.0-29.9,adult Start:28-Oct-2018 Instruction Type:Provider Instructions for Treatment How to access health informa tion online Indication:Non-smoker Start:29-Apr-2018 Instruction Type:Patient Education How to access health informa tion online - Detail Indication:Non-smoker Start:29-Apr-2018 Instruction Type:Patient Education Patient Instructions Indication:Non-smoker Start:29-Apr-2018 Instruction Type:Provider Instructions for Treatment How to access health informa tion online Indication:BMI 26.0-26.9,adult Start:18-Feb-2018 Instruction Type:Patient Education How to access health informa tion online Indication:BMI 26.0-26.9,adult Start:18-Feb-2018 Instruction Type:Patient Education How to access health informa tion online - Detail Indication:BMI 26.0-26.9,adult Start:18-Feb-2018 Instruction Type:Patient Education Patient Instructions Indication:BMI 26.0-26.9,adult Start:18-Feb-2018 Instruction Type:Provider Instructions for Treatment How to access health informa tion online Indication:Current nonsmoker (Renamed from Current non-smoker) Start:21-Apr-2017 Instruction Type:Patient Education How to access health informa tion online - Detail Indication:Current nonsmoker (Renamed from Current non-smoker) Start:21-Apr-2017 Instruction Type:Patient Education Patient Instructions Indication:Current nonsmoker (Renamed from Current non-smoker) Start:21-Apr-2017 Instruction Type:Provider Instructions for Treatment How to access health informa tion online Indication:BMI 30.0-30.9,adult Start:25-Mar-2017 Instruction Type:Patient Education How to access health informa tion online - Detail Indication:BMI 30.0-30.9,adult Start:25-Mar-2017 Instruction Type:Patient Education Patient Instructions Indication:BMI 30.0-30.9,adult Start:25-Mar-2017 Instruction Type:Provider Instructions for Treatment How to access health informa tion online Indication:Physical exam, routine Start:09-Mar-2017 Instruction Type:Patient Education How to access health informa tion online - Detail Indication:Physical exam, routine Start:09-Mar-2017 Instruction Type:Patient Education Patient Instructions Indication:Physical exam, routine Start:09-Mar-2017 Instruction Type:Provider Instructions for Treatment How to access health informa tion online Indication:Impaired fasting glucose Start:14-Jan-2016 Instruction Type:Patient Education How to access health informa tion online - Detail Indication:Impaired fasting glucose Start:14-Jan-2016 Instruction Type:Patient Education Patient Instructions Indication:Impaired fasting glucose Start:14-Jan-2016 Instruction Type:Provider Instructions for Treatment How to access health informa tion online Indication:Impaired fasting glucose Start:09-Sep-2015 Instruction Type:Patient Education How to access health informa tion online - Detail Indication:Impaired fasting glucose Start:09-Sep-2015 Instruction Type:Patient Education Patient Instructions Indication:Impaired fasting glucose Start:09-Sep-2015 Instruction Type:Provider Instructions for Treatment How to access health informa tion online Indication:Physical exam, routine Start:11-Jun-2015 Instruction Type:Patient Education How to access health informa tion online - Detail Indication:Physical exam, routine Start:11-Jun-2015 Instruction Type:Patient Education Patient Instructions Indication:Physical exam, routine Start:11-Jun-2015 Instruction Type:Provider Instructions for Treatment Patient Instructions Indication:Low Back Pain (Renamed from LBP (low back pain)) Start:14-Nov-2013 Instruction Type:Provider Instructions for Treatment Patient Instructions Indication:Low Back Pain (Renamed from LBP (low back pain)) Start:10-Oct-2013 Instruction Type:Provider Instructions for Treatment Patient Instructions Indication:Anxiety Start:03-Jan-2013 Instruction Type:Provider Instructions for Treatment [facility] Work Phone: reason for referral (narrative)* Diagnostic Procedure Only (Routine) - Authorized Specialty Diagnoses / Procedures Referred By Contac t Referred To Contact [facility] Diagnoses Encounter for screening mammogram for breast cancer Procedures EMMA SCREENING SCREENING MAMMOGRAPHY BI 2-VIEW BREAST INC Sommer Zhang MD [address] [place] [address] [facility] [address] [place] [address] Referral ID Status Reason Start Date Expiration Date Visits Requested Visits Authorized [id number] Authorized Auto-Generat ed Referral 08/15/2021 09/14/2022 1 1 [facility] for referral (narrative)* Outpatient Procedure (Routine) - Pending Review Specialty Diagnoses / Procedures Referred By Contac t Referred To Contact [facility] Diagnoses Pulmonary hypertension (HCC) Procedures ECHO ECHO TTHRC R-T 2D W/WOM-MODE COMPL SPEC&COLR D Sulaiman Whyte MD [address] [place] [phone] [facility] [address] [place] [phone] Referral ID Status Reason Start Date Expiration Date Visits Requested Visits Authorized [id number] Pending Review Auto-Generat ed Referral 05/15/2022 05/15/2023 1 1 [facility] for referral (narrative)* Outpatient Procedure (Routine) - Closed Specialty Diagnoses / Procedures Referred By Contac t Referred To Contact [facility] Diagnoses Pulmonary hypertension (HCC) Procedures ECHO ECHO TTHRC R-T 2D W/WOM-MODE COMPL SPEC&COLR D Sulaiman Whyte MD [address] [place] [phone] [address] Referral ID Status Reason Start Date Expiration Date V isits Requested Visits Authorized [id number] Closed Auto-Generate d Referral 05/15/2022 05/15/2023 1 1 [facility] for referral (narrative)* Outpatient Procedure (Routine) - Authorized Specialty Diagnoses / Procedures Referred By Contac t Referred To Contact [facility] Diagnoses Pulmonary hypertension (HCC) Procedures ECHO ECHO TTHRC R-T 2D W/WOM-MODE COMPL SPEC&COLR D Sulaiman Whyte MD [address] [place] [id number] [facility] [place] [address] [place] [phone] Referral ID Status Reason Start Date Expiration Date Visits Requested Visits Authorized [id number] Authorized Auto-Generat ed Referral 11/20/2022 11/20/2023 1 1 T [facility] for referral (narrative)* Outpatient Procedure (Routine) - Closed Specialty Diagnoses / Procedures Referred By Contac t Ref[facility] Diagnoses Pulmonary hypertension (HCC) Procedures ECHO ECHO TTHRC R-T 2D W/WOM-MODE COMPL SPEC&COLR D Sulaiman Whyte MD [address] [place] [address] [facility] [place] [address] [place] [address] Referral ID Status Reason Start Date Expiration Date V isits Requested Visits Authorized [id number] Closed Auto-Generate d Referral 11/20/2022 11/20/2023 1 1 T [facility] for referral (narrative)* Diagnostic Procedure Only (Routine) - Closed Specialty Diagnoses / Procedures [facility] Diagnoses Encounter for screening mammogram for breast cancer Procedures EMMA SCREENING SCREENING MAMMOGRAPHY BI 2-VIEW BREAST INC CAD Sommer Matthew MD [address] [place] [address] [facility] [address] [place] [address] Referral ID Status Reason Start Date Expiration Date V isits Requested Visits Authorized [id number] Closed Auto-Generate d Referral 08/15/2021 09/14/2022 1 1 T [facility] for referral (narrative)* Diagnostic Procedure Only (Routine) - Authorized Specialty Diagnoses / Procedures Referred By Contac t Referred To Contact [facility] Diagnoses Encounter for screening mammogram for breast cancer Procedures EMMA SCREENING SCREENING MAMMOGRAPHY BI 2-VIEW BREAST INC CAD Danae Bar APRN.SNOW REMOVAL/PLOWING [address] [place] [address] [facility] [address] [place] [address] Referral ID Status Reason Start Date Expiration Date Visits Requested Visits Authorized [id number] Authorized Auto-Generat ed Referral 09/27/2023 10/26/2024 1 1 [facility] for referral (narrative)* Outpatient Procedure (Routine) - Closed Specialty Diagnoses / Procedures Referred By Contac t Referred To Contact [facility] [place] Diagnoses Pulmonary hypertension (HCC) Procedures ECHO ECHO TTHRC R-T 2D W/WOM-MODE COMPL SPEC&COLR D Sulaiman Whyte MD [address] [place] [phone] [address] Referral ID Status Reason Start Date Expiration Date V isits Requested Visits Authorized [id number] Closed Auto-Generate d Referral 04/09/2023 04/08/2024 1 1 [facility] for referral (narrative)* Outpatient Procedure (Routine) - New Request Specialty Diagnoses / Procedures Referred By Contac t Referred To [facility] [place] Diagnoses Pulmonary hypertension (HCC) Procedures ECHO ECHO TTHRC R-T 2D W/WOM-MODE COMPL SPEC&COLR D Sulaiman Whyte MD [address] [place] [phone] [address] Referral ID Status Reason Start Date Expiration Date Visits Requested Visits Authorized [id number] New Request Auto-Generat ed Referral 4 03/15/2025 1 1 [facility] for referral (narrative)No reason for referral information [facility] Work Phone: Reason for visit Narrative* Outpatient Procedure (Routine) - Closed Specialty Diagnoses / Procedures Referred By Contac t Referred To Contact [facility] Diagnoses Pulmonary hypertension (HCC) Procedures ECHO ECHO TTHRC R-T 2D W/WOM-MODE COMPL SPEC&COLR D Sulaiman Whyte MD [address] [place] [phone] [facility] [address] [place] [address] Referral ID Status Reason Start Date Expiration Date V isits Requested Visits Authorized [id number] Closed Auto-Generate d Referral 05/15/2022 05/15/2023 1 1 [facility] for visit Narrative* Outpatient Procedure (Routine) - Closed Specialty Diagnoses / Procedures Referred By Contac t Referred To Contact [facility] Diagnoses Pulmonary hypertension (HCC) Procedures ECHO ECHO TTHRC R-T 2D W/WOM-MODE COMPL SPEC&COLR D Sulaiman Whyte MD [address] [place] [phone] [facility] [address] [place] [address] Referral ID Status Reason Start Date Expiration Date V isits Requested Visits Authorized [id number] Closed Auto-Generate d Referral 11/20/2022 11/20/2023 1 1 [facility] for visit Narrative* Diagnostic Procedure Only (Routine) - Closed Specialty Diagnoses / Procedures Referred By Contac t Referred To Contact [facility] Diagnoses Encounter for screening mammogram for breast cancer Procedures EMMA SCREENING SCREENING MAMMOGRAPHY BI 2-VIEW BREAST INC CAD Sommer Matthew MD [address] [place] [address] [facility] [address] [place] [address] Referral ID Status Reason Start Date Expiration Date V isits Requested Visits Authorized [id number] Closed Auto-Generate d Referral 08/15/2021 09/14/2022 1 1 [facility] for visit Narrative* Diagnostic Procedure Only (Routine) - Closed Specialty Diagnoses / Procedures Referred By Contac t Referred To Contact [facility] Diagnoses Encounter for screening mammogram for breast cancer Procedures EMMA SCREENING SCREENING MAMMOGRAPHY BI 2-VIEW BREAST INC CAD Danae Bar, PAOLA.SNOW REMOVAL/PLOWING [address] [place] [address] [facility] [address] [place] [address] Referral ID Status Reason Start Date Expiration Date V isits Requested Visits Authorized [id number] Closed Auto-Generate d Referral 09/25/2022 10/25/2023 1 1 [facility] for visit Narrative* Outpatient Procedure (Routine) - Closed Specialty Diagnoses / Procedures Referred By Leroy t Referred To Contact [facility] Diagnoses Pulmonary hypertension (HCC) Procedures ECHO ECHO TTHRC R-T 2D W/WOM-MODE COMPL SPEC&COLR D Sulaiman Whyte MD [address] [place] [address] [facility] [address] [place] [address] Referral ID Status Reason Start Date Expiration Date V isits Requested Visits Authorized [id number] Closed Auto-Generate d Referral 04/09/2023 04/08/2024 1 1 [facility] for visit Narrative* Diagnostic Procedure Only (Routine) - Closed Specialty Diagnoses / Procedures Referred By Leroy t Referred To Contact [facility] Diagnoses Encounter for screening mammogram for breast cancer Procedures EMMA SCREENING SCREENING MAMMOGRAPHY BI 2-VIEW BREAST INC [facility] Danae Bar, DAMPER FITTER.SNOW REMOVAL/PLOWING [address] [place] [address] Phone: tel: fax: [facility] [address] [place] [phone] Referral ID Status Reason Start Date Expiration Date V isits Requested Visits Authorized [id number] Closed Auto-Generate d Referral 09/27/2023 10/26/2024 1 1 [facility] for visit Narrative* Diagnostic Procedure Only (Routine) - Closed Specialty Diagnoses / Procedures Referred By Leroy t Referred To Contact [facility] Diagnoses Abnormal mammogram Procedures EMMA DIAGNOSTIC RIGHT DIAGNOSTIC MAMMOGRAPHY COMPUTER-AIDED DETCJ UNI Danae Bar, DAMPER FITTER.SNOW REMOVAL/PLOWING [address] [place] [address] Phone: tel: fax: [facility] [address] [place] [address] Referral ID Status Reason Start Date Expiration Date V isits Requested Visits Authorized [id number] Closed Auto-Generate d Referral 09/29/2024 10/29/2025 1 1 [facility] Family History No Family History Records FoundUnknown Family Member Name Dates Details Father Comments:lung cancer smoker Status:Active Maternal Grandmother Comments:Hypothyroidism, hea rt disease Status:Active Mother Comments:Type II diabetes, C HF 50's, hypothyroid Status:Active Unknown Family Member Name Dates Details Father Comments:lung cancer smoker Status:Active Maternal Grandmother Comments:Hypothyroidism, hea rt disease Status:Active Mother Comments:Type II diabetes, C HF 50's, hypothyroid Status:Active Unknown Family Member Name Dates Details Father Comments:lung cancer smoker Status:Active Maternal Grandmother Comments:Hypothyroidism, hea rt disease Status:Active Mother Comments:Type II diabetes, C HF 50's, hypothyroid Status:Active Unknown Family Member Name Dates Details Father Comments:lung cancer smoker Status:Active Maternal Grandmother Comments:Hypothyroidism, hea rt disease Status:Active Mother Comments:Type II diabetes, C HF 50's, hypothyroid Status:Active Unknown Family Member Name Dates Details Father Comments:lung cancer smoker Status:Active Maternal Grandmother Comments:Hypothyroidism, hea rt disease Status:Active Mother Comments:Type II diabetes, C HF 50's, hypothyroid Status:Active Unknown Family Member Name Dates Details Father Comments:lung cancer smoker Status:Active Maternal Grandmother Comments:Hypothyroidism, hea rt disease Status:Active Mother Comments:Type II diabetes, C HF 50's, hypothyroid Status:Active Unknown Family Member Name Dates Details Father Comments:lung cancer smoker Status:Active Maternal Grandmother Comments:Hypothyroidism, hea rt disease Status:Active Mother Comments:Type II diabetes, C HF 50's, hypothyroid Status:Active Unknown Family Member Name Dates Details Father Comments:lung cancer smoker Status:Active Maternal Grandmother Comments:Hypothyroidism, hea rt disease Status:Active Mother Comments:Type II diabetes, C HF 50's, hypothyroid Status:Active Unknown Family Member Name Dates Details Father Comments:lung cancer smoker Status:Active Maternal Grandmother Comments:Hypothyroidism, hea rt disease Status:Active Mother Comments:Type II diabetes, C HF 50's, hypothyroid Status:Active Unknown Family Member Name Dates Details Father Comments:lung cancer smoker Status:Active Maternal Grandmother Comments:Hypothyroidism, hea rt disease Status:Active Mother Comments:Type II diabetes, C HF 50's, hypothyroid Status:Active Unknown Family Member Name Dates Details Father Comments:lung cancer smoker Status:Active Maternal Grandmother Comments:Hypothyroidism, hea rt disease Status:Active Mother Comments:Type II diabetes, C HF 50's, hypothyroid Status:Active Unknown Family Member Name Dates Details Father Comments:lung cancer smoker Status:Active Maternal Grandmother Comments:Hypothyroidism, hea rt disease Status:Active Mother Comments:Type II diabetes, C HF 50's, hypothyroid Status:Active Unknown Family Member Name Dates Details Father Comments:lung cancer smoker Status:Active Maternal Grandmother Comments:Hypothyroidism, hea rt disease Status:Active Mother Comments:Type II diabetes, C HF 50's, hypothyroid Status:Active Unknown Family Member Name Dates Details Father Comments:lung cancer smoker Status:Active Maternal Grandmother Comments:Hypothyroidism, hea rt disease Status:Active Mother Comments:Type II diabetes, C HF 50's, hypothyroid Status:Active Unknown Family Member Name Dates Details Father Comments:lung cancer smoker Status:Active Maternal Grandmother Comments:Hypothyroidism, hea rt disease Status:Active Mother Comments:Type II diabetes, C HF 50's, hypothyroid Status:Active Unknown Family Member Name Dates Details Father Comments:lung cancer smoker Status:Active Maternal Grandmother Comments:Hypothyroidism, hea rt disease Status:Active Mother Comments:Type II diabetes, C HF 50's, hypothyroid Status:Active Unknown Family Member Name Dates Details Father Comments:lung cancer smoker Status:Active Maternal Grandmother Comments:Hypothyroidism, hea rt disease Status:Active Mother Comments:Type II diabetes, C HF 50's, hypothyroid Status:Active Unknown Family Member Name Dates Details Father Comments:lung cancer smoker Status:Active Maternal Grandmother Comments:Hypothyroidism, hea rt disease Status:Active Mother Comments:Type II diabetes, C HF 50's, hypothyroid Status:Active Relationship Condition Age at Onset Recorded Date/T dejuan grandmother Cardiac disease Unknown Hypothyroidism Unknown mother Hypothyroidism Unknown Diabetes mellitus Unknown Congestive heart failure Unknown father Malignant neoplasm Unknown Unknown Family Member Name Dates Details Father Comments:lung cancer smoker Status:Active Maternal Grandmother Comments:Hypothyroidism, hea rt disease Status:Active Mother Comments:Type II diabetes, C HF 50's, hypothyroid Status:Active Unknown Family Member Name Dates Details Father Comments:lung cancer smoker Status:Active Maternal Grandmother Comments:Hypothyroidism, hea rt disease Status:Active Mother Comments:Type II diabetes, C HF 50's, hypothyroid Status:Active Unknown Family Member Name Dates Details Father Comments:lung cancer smoker Status:Active Maternal Grandmother Comments:Hypothyroidism, hea rt disease Status:Active Mother Comments:Type II diabetes, C HF 50's, hypothyroid Status:Active Unknown Family Member Name Dates Details Father Comments:lung cancer smoker Status:Active Maternal Grandmother Comments:Hypothyroidism, hea rt disease Status:Active Mother Comments:Type II diabetes, C HF 50's, hypothyroid Status:Active Unknown Family Member Name Dates Details Father Comments:lung cancer smoker Status:Active Maternal Grandmother Comments:Hypothyroidism, hea rt disease Status:Active Mother Comments:Type II diabetes, C HF 50's, hypothyroid Status:Active Unknown Family Member Name Dates Details Father Comments:lung cancer smoker Status:Active Maternal Grandmother Comments:Hypothyroidism, hea rt disease Status:Active Mother Comments:Type II diabetes, C HF 50's, hypothyroid Status:Active Unknown Family Member Name Dates Details Father Comments:lung cancer smoker Status:Active Maternal Grandmother Comments:Hypothyroidism, hea rt disease Status:Active Mother Comments:Type II diabetes, C HF 50's, hypothyroid Status:Active Unknown Family Member Name Dates Details Father Comments:lung cancer smoker Status:Active Maternal Grandmother Comments:Hypothyroidism, hea rt disease Status:Active Mother Comments:Type II diabetes, C HF 50's, hypothyroid Status:Active Unknown Family Member Name Dates Details Father Comments:lung cancer smoker Status:Active Maternal Grandmother Comments:Hypothyroidism, hea rt disease Status:Active Mother Comments:Type II diabetes, C HF 50's, hypothyroid Status:Active Unknown Family Member Name Dates Details Father Comments:lung cancer smoker Status:Active Maternal Grandmother Comments:Hypothyroidism, hea rt disease Status:Active Mother Comments:Type II diabetes, C HF 50's, hypothyroid Status:Active Instructions Name Dates Details BMI 26.0-26.9,adult : How to access health information online Indication:BMI 26.0-26.9,adult BMI 26.0-26.9,adult : How to access health information online - Detail Indication:BMI 26.0-26.9,adult BMI 26.0-26.9,adult : Patien t Instructions Indication:BMI 26.0-26.9,adult Current nonsmoker (Renamed f rom Current non-smoker) : How to access health information online Indication:Current nonsmoker (Renamed from Current non-smoker) Current nonsmoker (Renamed f rom Current non-smoker) : How to access health information online - Detail Indication:Current nonsmoker (Renamed from Current non-smoker) Current nonsmoker (Renamed f rom Current non-smoker) : Patient Instructions Indication:Current nonsmoker (Renamed from Current non-smoker) BMI 30.0-30.9,adult : How to access health information online Indication:BMI 30.0-30.9,adult BMI 30.0-30.9,adult : How to access health information online - Detail Indication:BMI 30.0-30.9,adult BMI 30.0-30.9,adult : Patien t Instructions Indication:BMI 30.0-30.9,adult Physical exam, routine : How to access health information online Indication:Physical exam, routine Physical exam, routine : How to access health information online - Detail Indication:Physical exam, routine Physical exam, routine : Pat ient Instructions Indication:Physical exam, routine Impaired fasting glucose : H ow to access health information online Indication:Impaired fasting glucose Impaired fasting glucose : H ow to access health information online - Detail Indication:Impaired fasting glucose Impaired fasting glucose : P atient Instructions Indication:Impaired fasting glucose Low Back Pain (Renamed from LBP (low back pain)) : Patient Instructions Indication:Low Back Pain (Renamed from LBP (low back pain)) Anxiety : Patient Instructio ns Indication:Anxiety Name Dates Details Non-smoker : How to access h ealth information online Indication:Non-smoker Non-smoker : How to access h ealth information online - Detail Indication:Non-smoker Non-smoker : Patient Instruc tions Indication:Non-smoker BMI 26.0-26.9,adult : How to access health information online Indication:BMI 26.0-26.9,adult BMI 26.0-26.9,adult : How to access health information online - Detail Indication:BMI 26.0-26.9,adult BMI 26.0-26.9,adult : Patien t Instructions Indication:BMI 26.0-26.9,adult Current nonsmoker (Renamed f rom Current non-smoker) : How to access health information online Indication:Current nonsmoker (Renamed from Current non-smoker) Current nonsmoker (Renamed f rom Current non-smoker) : How to access health information online - Detail Indication:Current nonsmoker (Renamed from Current non-smoker) Current nonsmoker (Renamed f rom Current non-smoker) : Patient Instructions Indication:Current nonsmoker (Renamed from Current non-smoker) BMI 30.0-30.9,adult : How to access health information online Indication:BMI 30.0-30.9,adult BMI 30.0-30.9,adult : How to access health information online - Detail Indication:BMI 30.0-30.9,adult BMI 30.0-30.9,adult : Patien t Instructions Indication:BMI 30.0-30.9,adult Physical exam, routine : How to access health information online Indication:Physical exam, routine Physical exam, routine : How to access health information online - Detail Indication:Physical exam, routine Physical exam, routine : Pat ient Instructions Indication:Physical exam, routine Impaired fasting glucose : H ow to access health information online Indication:Impaired fasting glucose Impaired fasting glucose : H ow to access health information online - Detail Indication:Impaired fasting glucose Impaired fasting glucose : P atient Instructions Indication:Impaired fasting glucose Low Back Pain (Renamed from LBP (low back pain)) : Patient Instructions Indication:Low Back Pain (Renamed from LBP (low back pain)) Anxiety : Patient Instructio ns Indication:Anxiety Name Dates Details Non-smoker : How to access h ealth information online Indication:Non-smoker Non-smoker : How to access h ealth information online - Detail Indication:Non-smoker Non-smoker : Patient Instruc tions Indication:Non-smoker BMI 26.0-26.9,adult : How to access health information online Indication:BMI 26.0-26.9,adult BMI 26.0-26.9,adult : How to access health information online - Detail Indication:BMI 26.0-26.9,adult BMI 26.0-26.9,adult : Patien t Instructions Indication:BMI 26.0-26.9,adult Current nonsmoker (Renamed f rom Current non-smoker) : How to access health information online Indication:Current nonsmoker (Renamed from Current non-smoker) Current nonsmoker (Renamed f rom Current non-smoker) : How to access health information online - Detail Indication:Current nonsmoker (Renamed from Current non-smoker) Current nonsmoker (Renamed f rom Current non-smoker) : Patient Instructions Indication:Current nonsmoker (Renamed from Current non-smoker) BMI 30.0-30.9,adult : How to access health information online Indication:BMI 30.0-30.9,adult BMI 30.0-30.9,adult : How to access health information online - Detail Indication:BMI 30.0-30.9,adult BMI 30.0-30.9,adult : Patien t Instructions Indication:BMI 30.0-30.9,adult Physical exam, routine : How to access health information online Indication:Physical exam, routine Physical exam, routine : How to access health information online - Detail Indication:Physical exam, routine Physical exam, routine : Pat ient Instructions Indication:Physical exam, routine Impaired fasting glucose : H ow to access health information online Indication:Impaired fasting glucose Impaired fasting glucose : H ow to access health information online - Detail Indication:Impaired fasting glucose Impaired fasting glucose : P atient Instructions Indication:Impaired fasting glucose Low Back Pain (Renamed from LBP (low back pain)) : Patient Instructions Indication:Low Back Pain (Renamed from LBP (low back pain)) Anxiety : Patient Instructio ns Indication:Anxiety Name Dates Details How to access health informa tion online Indication:BMI 29.0-29.9,adult Start:28-Oct-2018 Instruction Type:Patient Education Patient Instructions Indication:BMI 29.0-29.9,adult Start:28-Oct-2018 Instruction Type:Provider Instructions for Treatment How to access health informa tion online Indication:Non-smoker Start:29-Apr-2018 Instruction Type:Patient Education How to access health informa tion online - Detail Indication:Non-smoker Start:29-Apr-2018 Instruction Type:Patient Education Patient Instructions Indication:Non-smoker Start:29-Apr-2018 Instruction Type:Provider Instructions for Treatment How to access health informa tion online Indication:BMI 26.0-26.9,adult Start:18-Feb-2018 Instruction Type:Patient Education How to access health informa tion online - Detail Indication:BMI 26.0-26.9,adult Start:18-Feb-2018 Instruction Type:Patient Education Patient Instructions Indication:BMI 26.0-26.9,adult Start:18-Feb-2018 Instruction Type:Provider Instructions for Treatment How to access health informa tion online Indication:Current nonsmoker (Renamed from Current non-smoker) Start:21-Apr-2017 Instruction Type:Patient Education How to access health informa tion online - Detail Indication:Current nonsmoker (Renamed from Current non-smoker) Start:21-Apr-2017 Instruction Type:Patient Education Patient Instructions Indication:Current nonsmoker (Renamed from Current non-smoker) Start:21-Apr-2017 Instruction Type:Provider Instructions for Treatment How to access health informa tion online Indication:BMI 30.0-30.9,adult Start:25-Mar-2017 Instruction Type:Patient Education How to access health informa tion online - Detail Indication:BMI 30.0-30.9,adult Start:25-Mar-2017 Instruction Type:Patient Education Patient Instructions Indication:BMI 30.0-30.9,adult Start:25-Mar-2017 Instruction Type:Provider Instructions for Treatment How to access health informa tion online Indication:Physical exam, routine Start:09-Mar-2017 Instruction Type:Patient Education How to access health informa tion online - Detail Indication:Physical exam, routine Start:09-Mar-2017 Instruction Type:Patient Education Patient Instructions Indication:Physical exam, routine Start:09-Mar-2017 Instruction Type:Provider Instructions for Treatment How to access health informa tion online Indication:Impaired fasting glucose Start:14-Jan-2016 Instruction Type:Patient Education How to access health informa tion online - Detail Indication:Impaired fasting glucose Start:14-Jan-2016 Instruction Type:Patient Education Patient Instructions Indication:Impaired fasting glucose Start:14-Jan-2016 Instruction Type:Provider Instructions for Treatment How to access health informa tion online Indication:Impaired fasting glucose Start:09-Sep-2015 Instruction Type:Patient Education How to access health informa tion online - Detail Indication:Impaired fasting glucose Start:09-Sep-2015 Instruction Type:Patient Education Patient Instructions Indication:Impaired fasting glucose Start:09-Sep-2015 Instruction Type:Provider Instructions for Treatment How to access health informa tion online Indication:Physical exam, routine Start:11-Jun-2015 Instruction Type:Patient Education How to access health informa tion online - Detail Indication:Physical exam, routine Start:11-Jun-2015 Instruction Type:Patient Education Patient Instructions Indication:Physical exam, routine Start:11-Jun-2015 Instruction Type:Provider Instructions for Treatment Patient Instructions Indication:Low Back Pain (Renamed from LBP (low back pain)) Start:14-Nov-2013 Instruction Type:Provider Instructions for Treatment Patient Instructions Indication:Low Back Pain (Renamed from LBP (low back pain)) Start:10-Oct-2013 Instruction Type:Provider Instructions for Treatment Patient Instructions Indication:Anxiety Start:03-Jan-2013 Instruction Type:Provider Instructions for Treatment Name Dates Details How to access health informa tion online Indication:Non-smoker Start:01-Sep-2019 Instruction Type:Patient Education How to access health informa tion online - Detail Indication:Non-smoker Start:01-Sep-2019 Instruction Type:Patient Education Patient Instructions Indication:Non-smoker Start:01-Sep-2019 Instruction Type:Provider Instructions for Treatment How to access health informa tion online Indication:Non-smoker Start:05-May-2019 Instruction Type:Patient Education How to access health informa tion online - Detail Indication:Non-smoker Start:05-May-2019 Instruction Type:Patient Education Patient Instructions Indication:Non-smoker Start:05-May-2019 Instruction Type:Provider Instructions for Treatment How to access health informa tion online Indication:BMI 30.0-30.9,adult Start:24-Mar-2019 Instruction Type:Patient Education How to access health informa tion online - Detail Indication:BMI 30.0-30.9,adult Start:24-Mar-2019 Instruction Type:Patient Education Patient Instructions Indication:BMI 30.0-30.9,adult Start:24-Mar-2019 Instruction Type:Provider Instructions for Treatment How to access health informa tion online Indication:BMI 29.0-29.9,adult Start:28-Oct-2018 Instruction Type:Patient Education Patient Instructions Indication:BMI 29.0-29.9,adult Start:28-Oct-2018 Instruction Type:Provider Instructions for Treatment How to access health informa tion online Indication:Non-smoker Start:29-Apr-2018 Instruction Type:Patient Education How to access health informa tion online - Detail Indication:Non-smoker Start:29-Apr-2018 Instruction Type:Patient Education Patient Instructions Indication:Non-smoker Start:29-Apr-2018 Instruction Type:Provider Instructions for Treatment How to access health informa tion online Indication:BMI 26.0-26.9,adult Start:18-Feb-2018 Instruction Type:Patient Education How to access health informa tion online - Detail Indication:BMI 26.0-26.9,adult Start:18-Feb-2018 Instruction Type:Patient Education Patient Instructions Indication:BMI 26.0-26.9,adult Start:18-Feb-2018 Instruction Type:Provider Instructions for Treatment How to access health informa tion online Indication:Current nonsmoker (Renamed from Current non-smoker) Start:21-Apr-2017 Instruction Type:Patient Education How to access health informa tion online - Detail Indication:Current nonsmoker (Renamed from Current non-smoker) Start:21-Apr-2017 Instruction Type:Patient Education Patient Instructions Indication:Current nonsmoker (Renamed from Current non-smoker) Start:21-Apr-2017 Instruction Type:Provider Instructions for Treatment How to access health informa tion online Indication:BMI 30.0-30.9,adult Start:25-Mar-2017 Instruction Type:Patient Education How to access health informa tion online - Detail Indication:BMI 30.0-30.9,adult Start:25-Mar-2017 Instruction Type:Patient Education Patient Instructions Indication:BMI 30.0-30.9,adult Start:25-Mar-2017 Instruction Type:Provider Instructions for Treatment How to access health informa tion online Indication:Physical exam, routine Start:09-Mar-2017 Instruction Type:Patient Education How to access health informa tion online - Detail Indication:Physical exam, routine Start:09-Mar-2017 Instruction Type:Patient Education Patient Instructions Indication:Physical exam, routine Start:09-Mar-2017 Instruction Type:Provider Instructions for Treatment How to access health informa tion online Indication:Impaired fasting glucose Start:14-Jan-2016 Instruction Type:Patient Education How to access health informa tion online - Detail Indication:Impaired fasting glucose Start:14-Jan-2016 Instruction Type:Patient Education Patient Instructions Indication:Impaired fasting glucose Start:14-Jan-2016 Instruction Type:Provider Instructions for Treatment How to access health informa tion online Indication:Impaired fasting glucose Start:09-Sep-2015 Instruction Type:Patient Education How to access health informa tion online - Detail Indication:Impaired fasting glucose Start:09-Sep-2015 Instruction Type:Patient Education Patient Instructions Indication:Impaired fasting glucose Start:09-Sep-2015 Instruction Type:Provider Instructions for Treatment How to access health informa tion online Indication:Physical exam, routine Start:11-Jun-2015 Instruction Type:Patient Education How to access health informa tion online - Detail Indication:Physical exam, routine Start:11-Jun-2015 Instruction Type:Patient Education Patient Instructions Indication:Physical exam, routine Start:11-Jun-2015 Instruction Type:Provider Instructions for Treatment Patient Instructions Indication:Low Back Pain (Renamed from LBP (low back pain)) Start:14-Nov-2013 Instruction Type:Provider Instructions for Treatment Patient Instructions Indication:Low Back Pain (Renamed from LBP (low back pain)) Start:10-Oct-2013 Instruction Type:Provider Instructions for Treatment Patient Instructions Indication:Anxiety Start:03-Jan-2013 Instruction Type:Provider Instructions for Treatment Name Dates Details How to access health informa tion online Indication:BMI 30.0-30.9,adult Start:10-Jan-2020 Instruction Type:Patient Education How to access health informa tion online - Detail Indication:BMI 30.0-30.9,adult Start:10-Jan-2020 Instruction Type:Patient Education Patient Instructions Indication:BMI 30.0-30.9,adult Start:10-Jan-2020 Instruction Type:Provider Instructions for Treatment How to access health informa tion online Indication:Non-smoker Start:01-Sep-2019 Instruction Type:Patient Education How to access health informa tion online - Detail Indication:Non-smoker Start:01-Sep-2019 Instruction Type:Patient Education Patient Instructions Indication:Non-smoker Start:01-Sep-2019 Instruction Type:Provider Instructions for Treatment How to access health informa tion online Indication:Non-smoker Start:05-May-2019 Instruction Type:Patient Education How to access health informa tion online - Detail Indication:Non-smoker Start:05-May-2019 Instruction Type:Patient Education Patient Instructions Indication:Non-smoker Start:05-May-2019 Instruction Type:Provider Instructions for Treatment How to access health informa tion online Indication:BMI 30.0-30.9,adult Start:24-Mar-2019 Instruction Type:Patient Education How to access health informa tion online - Detail Indication:BMI 30.0-30.9,adult Start:24-Mar-2019 Instruction Type:Patient Education Patient Instructions Indication:BMI 30.0-30.9,adult Start:24-Mar-2019 Instruction Type:Provider Instructions for Treatment How to access health informa tion online Indication:BMI 29.0-29.9,adult Start:28-Oct-2018 Instruction Type:Patient Education Patient Instructions Indication:BMI 29.0-29.9,adult Start:28-Oct-2018 Instruction Type:Provider Instructions for Treatment How to access health informa tion online Indication:Non-smoker Start:29-Apr-2018 Instruction Type:Patient Education How to access health informa tion online - Detail Indication:Non-smoker Start:29-Apr-2018 Instruction Type:Patient Education Patient Instructions Indication:Non-smoker Start:29-Apr-2018 Instruction Type:Provider Instructions for Treatment How to access health informa tion online Indication:BMI 26.0-26.9,adult Start:18-Feb-2018 Instruction Type:Patient Education How to access health informa tion online - Detail Indication:BMI 26.0-26.9,adult Start:18-Feb-2018 Instruction Type:Patient Education Patient Instructions Indication:BMI 26.0-26.9,adult Start:18-Feb-2018 Instruction Type:Provider Instructions for Treatment How to access health informa tion online Indication:Current nonsmoker (Renamed from Current non-smoker) Start:21-Apr-2017 Instruction Type:Patient Education How to access health informa tion online - Detail Indication:Current nonsmoker (Renamed from Current non-smoker) Start:21-Apr-2017 Instruction Type:Patient Education Patient Instructions Indication:Current nonsmoker (Renamed from Current non-smoker) Start:21-Apr-2017 Instruction Type:Provider Instructions for Treatment How to access health informa tion online Indication:BMI 30.0-30.9,adult Start:25-Mar-2017 Instruction Type:Patient Education How to access health informa tion online - Detail Indication:BMI 30.0-30.9,adult Start:25-Mar-2017 Instruction Type:Patient Education Patient Instructions Indication:BMI 30.0-30.9,adult Start:25-Mar-2017 Instruction Type:Provider Instructions for Treatment How to access health informa tion online Indication:Physical exam, routine Start:09-Mar-2017 Instruction Type:Patient Education How to access health informa tion online - Detail Indication:Physical exam, routine Start:09-Mar-2017 Instruction Type:Patient Education Patient Instructions Indication:Physical exam, routine Start:09-Mar-2017 Instruction Type:Provider Instructions for Treatment How to access health informa tion online Indication:Impaired fasting glucose Start:14-Jan-2016 Instruction Type:Patient Education How to access health informa tion online - Detail Indication:Impaired fasting glucose Start:14-Jan-2016 Instruction Type:Patient Education Patient Instructions Indication:Impaired fasting glucose Start:14-Jan-2016 Instruction Type:Provider Instructions for Treatment How to access health informa tion online Indication:Impaired fasting glucose Start:09-Sep-2015 Instruction Type:Patient Education How to access health informa tion online - Detail Indication:Impaired fasting glucose Start:09-Sep-2015 Instruction Type:Patient Education Patient Instructions Indication:Impaired fasting glucose Start:09-Sep-2015 Instruction Type:Provider Instructions for Treatment How to access health informa tion online Indication:Physical exam, routine Start:11-Jun-2015 Instruction Type:Patient Education How to access health informa tion online - Detail Indication:Physical exam, routine Start:11-Jun-2015 Instruction Type:Patient Education Patient Instructions Indication:Physical exam, routine Start:11-Jun-2015 Instruction Type:Provider Instructions for Treatment Patient Instructions Indication:Low Back Pain (Renamed from LBP (low back pain)) Start:14-Nov-2013 Instruction Type:Provider Instructions for Treatment Patient Instructions Indication:Low Back Pain (Renamed from LBP (low back pain)) Start:10-Oct-2013 Instruction Type:Provider Instructions for Treatment Patient Instructions Indication:Anxiety Start:03-Jan-2013 Instruction Type:Provider Instructions for Treatment Name Dates Details How to access health informa tion online Indication:BMI 30.0-30.9,adult Start:10-Jan-2020 Instruction Type:Patient Education How to access health informa tion online - Detail Indication:BMI 30.0-30.9,adult Start:10-Jan-2020 Instruction Type:Patient Education Patient Instructions Indication:BMI 30.0-30.9,adult Start:10-Jan-2020 Instruction Type:Provider Instructions for Treatment How to access health informa tion online Indication:Non-smoker Start:01-Sep-2019 Instruction Type:Patient Education How to access health informa tion online - Detail Indication:Non-smoker Start:01-Sep-2019 Instruction Type:Patient Education Patient Instructions Indication:Non-smoker Start:01-Sep-2019 Instruction Type:Provider Instructions for Treatment How to access health informa tion online Indication:Non-smoker Start:05-May-2019 Instruction Type:Patient Education How to access health informa tion online - Detail Indication:Non-smoker Start:05-May-2019 Instruction Type:Patient Education Patient Instructions Indication:Non-smoker Start:05-May-2019 Instruction Type:Provider Instructions for Treatment How to access health informa tion online Indication:BMI 30.0-30.9,adult Start:24-Mar-2019 Instruction Type:Patient Education How to access health informa tion online - Detail Indication:BMI 30.0-30.9,adult Start:24-Mar-2019 Instruction Type:Patient Education Patient Instructions Indication:BMI 30.0-30.9,adult Start:24-Mar-2019 Instruction Type:Provider Instructions for Treatment How to access health informa tion online Indication:BMI 29.0-29.9,adult Start:28-Oct-2018 Instruction Type:Patient Education Patient Instructions Indication:BMI 29.0-29.9,adult Start:28-Oct-2018 Instruction Type:Provider Instructions for Treatment How to access health informa tion online Indication:Non-smoker Start:29-Apr-2018 Instruction Type:Patient Education How to access health informa tion online - Detail Indication:Non-smoker Start:29-Apr-2018 Instruction Type:Patient Education Patient Instructions Indication:Non-smoker Start:29-Apr-2018 Instruction Type:Provider Instructions for Treatment How to access health informa tion online Indication:BMI 26.0-26.9,adult Start:18-Feb-2018 Instruction Type:Patient Education How to access health informa tion online - Detail Indication:BMI 26.0-26.9,adult Start:18-Feb-2018 Instruction Type:Patient Education Patient Instructions Indication:BMI 26.0-26.9,adult Start:18-Feb-2018 Instruction Type:Provider Instructions for Treatment How to access health informa tion online Indication:Current nonsmoker (Renamed from Current non-smoker) Start:21-Apr-2017 Instruction Type:Patient Education How to access health informa tion online - Detail Indication:Current nonsmoker (Renamed from Current non-smoker) Start:21-Apr-2017 Instruction Type:Patient Education Patient Instructions Indication:Current nonsmoker (Renamed from Current non-smoker) Start:21-Apr-2017 Instruction Type:Provider Instructions for Treatment How to access health informa tion online Indication:BMI 30.0-30.9,adult Start:25-Mar-2017 Instruction Type:Patient Education How to access health informa tion online - Detail Indication:BMI 30.0-30.9,adult Start:25-Mar-2017 Instruction Type:Patient Education Patient Instructions Indication:BMI 30.0-30.9,adult Start:25-Mar-2017 Instruction Type:Provider Instructions for Treatment How to access health informa tion online Indication:Physical exam, routine Start:09-Mar-2017 Instruction Type:Patient Education How to access health informa tion online - Detail Indication:Physical exam, routine Start:09-Mar-2017 Instruction Type:Patient Education Patient Instructions Indication:Physical exam, routine Start:09-Mar-2017 Instruction Type:Provider Instructions for Treatment How to access health informa tion online Indication:Impaired fasting glucose Start:14-Jan-2016 Instruction Type:Patient Education How to access health informa tion online - Detail Indication:Impaired fasting glucose Start:14-Jan-2016 Instruction Type:Patient Education Patient Instructions Indication:Impaired fasting glucose Start:14-Jan-2016 Instruction Type:Provider Instructions for Treatment How to access health informa tion online Indication:Impaired fasting glucose Start:09-Sep-2015 Instruction Type:Patient Education How to access health informa tion online - Detail Indication:Impaired fasting glucose Start:09-Sep-2015 Instruction Type:Patient Education Patient Instructions Indication:Impaired fasting glucose Start:09-Sep-2015 Instruction Type:Provider Instructions for Treatment How to access health informa tion online Indication:Physical exam, routine Start:11-Jun-2015 Instruction Type:Patient Education How to access health informa tion online - Detail Indication:Physical exam, routine Start:11-Jun-2015 Instruction Type:Patient Education Patient Instructions Indication:Physical exam, routine Start:11-Jun-2015 Instruction Type:Provider Instructions for Treatment Patient Instructions Indication:Low Back Pain (Renamed from LBP (low back pain)) Start:14-Nov-2013 Instruction Type:Provider Instructions for Treatment Patient Instructions Indication:Low Back Pain (Renamed from LBP (low back pain)) Start:10-Oct-2013 Instruction Type:Provider Instructions for Treatment Patient Instructions Indication:Anxiety Start:03-Jan-2013 Instruction Type:Provider Instructions for Treatment Name Dates Details Patient Instructions Indication:Non-smoker Start:10-Apr-2020 Instruction Type:Provider Instructions for Treatment How to Access Health Informa tion Online using Patient Portal and [employer]rd [employer] Apps Indication:Non-smoker Start:10-Apr-2020 Instruction Type:Patient Education How to access health informa tion online Indication:BMI 30.0-30.9,adult Start:10-Jan-2020 Instruction Type:Patient Education How to access health informa tion online - Detail Indication:BMI 30.0-30.9,adult Start:10-Jan-2020 Instruction Type:Patient Education Patient Instructions Indication:BMI 30.0-30.9,adult Start:10-Jan-2020 Instruction Type:Provider Instructions for Treatment How to access health informa tion online Indication:Non-smoker Start:01-Sep-2019 Instruction Type:Patient Education How to access health informa tion online - Detail Indication:Non-smoker Start:01-Sep-2019 Instruction Type:Patient Education Patient Instructions Indication:Non-smoker Start:01-Sep-2019 Instruction Type:Provider Instructions for Treatment How to access health informa tion online Indication:Non-smoker Start:05-May-2019 Instruction Type:Patient Education How to access health informa tion online - Detail Indication:Non-smoker Start:05-May-2019 Instruction Type:Patient Education Patient Instructions Indication:Non-smoker Start:05-May-2019 Instruction Type:Provider Instructions for Treatment How to access health informa tion online Indication:BMI 30.0-30.9,adult Start:24-Mar-2019 Instruction Type:Patient Education How to access health informa tion online - Detail Indication:BMI 30.0-30.9,adult Start:24-Mar-2019 Instruction Type:Patient Education Patient Instructions Indication:BMI 30.0-30.9,adult Start:24-Mar-2019 Instruction Type:Provider Instructions for Treatment How to access health informa tion online Indication:BMI 29.0-29.9,adult Start:28-Oct-2018 Instruction Type:Patient Education Patient Instructions Indication:BMI 29.0-29.9,adult Start:28-Oct-2018 Instruction Type:Provider Instructions for Treatment How to access health informa tion online Indication:Non-smoker Start:29-Apr-2018 Instruction Type:Patient Education How to access health informa tion online - Detail Indication:Non-smoker Start:29-Apr-2018 Instruction Type:Patient Education Patient Instructions Indication:Non-smoker Start:29-Apr-2018 Instruction Type:Provider Instructions for Treatment How to access health informa tion online Indication:BMI 26.0-26.9,adult Start:18-Feb-2018 Instruction Type:Patient Education How to access health informa tion online - Detail Indication:BMI 26.0-26.9,adult Start:18-Feb-2018 Instruction Type:Patient Education Patient Instructions Indication:BMI 26.0-26.9,adult Start:18-Feb-2018 Instruction Type:Provider Instructions for Treatment How to access health informa tion online Indication:Current nonsmoker (Renamed from Current non-smoker) Start:21-Apr-2017 Instruction Type:Patient Education How to access health informa tion online - Detail Indication:Current nonsmoker (Renamed from Current non-smoker) Start:21-Apr-2017 Instruction Type:Patient Education Patient Instructions Indication:Current nonsmoker (Renamed from Current non-smoker) Start:21-Apr-2017 Instruction Type:Provider Instructions for Treatment How to access health informa tion online Indication:BMI 30.0-30.9,adult Start:25-Mar-2017 Instruction Type:Patient Education How to access health informa tion online - Detail Indication:BMI 30.0-30.9,adult Start:25-Mar-2017 Instruction Type:Patient Education Patient Instructions Indication:BMI 30.0-30.9,adult Start:25-Mar-2017 Instruction Type:Provider Instructions for Treatment How to access health informa tion online Indication:Physical exam, routine Start:09-Mar-2017 Instruction Type:Patient Education How to access health informa tion online - Detail Indication:Physical exam, routine Start:09-Mar-2017 Instruction Type:Patient Education Patient Instructions Indication:Physical exam, routine Start:09-Mar-2017 Instruction Type:Provider Instructions for Treatment How to access health informa tion online Indication:Impaired fasting glucose Start:14-Jan-2016 Instruction Type:Patient Education How to access health informa tion online - Detail Indication:Impaired fasting glucose Start:14-Jan-2016 Instruction Type:Patient Education Patient Instructions Indication:Impaired fasting glucose Start:14-Jan-2016 Instruction Type:Provider Instructions for Treatment How to access health informa tion online Indication:Impaired fasting glucose Start:09-Sep-2015 Instruction Type:Patient Education How to access health informa tion online - Detail Indication:Impaired fasting glucose Start:09-Sep-2015 Instruction Type:Patient Education Patient Instructions Indication:Impaired fasting glucose Start:09-Sep-2015 Instruction Type:Provider Instructions for Treatment How to access health informa tion online Indication:Physical exam, routine Start:11-Jun-2015 Instruction Type:Patient Education How to access health informa tion online - Detail Indication:Physical exam, routine Start:11-Jun-2015 Instruction Type:Patient Education Patient Instructions Indication:Physical exam, routine Start:11-Jun-2015 Instruction Type:Provider Instructions for Treatment Patient Instructions Indication:Low Back Pain (Renamed from LBP (low back pain)) Start:14-Nov-2013 Instruction Type:Provider Instructions for Treatment Patient Instructions Indication:Low Back Pain (Renamed from LBP (low back pain)) Start:10-Oct-2013 Instruction Type:Provider Instructions for Treatment Patient Instructions Indication:Anxiety Start:03-Jan-2013 Instruction Type:Provider Instructions for Treatment Name Dates Details Patient Instructions Indication:Non-smoker Start:10-Apr-2020 Instruction Type:Provider Instructions for Treatment How to Access Health Informa tion Online using Patient Portal and [employer]rd [employer] Apps Indication:Non-smoker Start:10-Apr-2020 Instruction Type:Patient Education How to access health informa tion online Indication:BMI 30.0-30.9,adult Start:10-Jan-2020 Instruction Type:Patient Education How to access health informa tion online - Detail Indication:BMI 30.0-30.9,adult Start:10-Jan-2020 Instruction Type:Patient Education Patient Instructions Indication:BMI 30.0-30.9,adult Start:10-Jan-2020 Instruction Type:Provider Instructions for Treatment How to access health informa tion online Indication:Non-smoker Start:01-Sep-2019 Instruction Type:Patient Education How to access health informa tion online - Detail Indication:Non-smoker Start:01-Sep-2019 Instruction Type:Patient Education Patient Instructions Indication:Non-smoker Start:01-Sep-2019 Instruction Type:Provider Instructions for Treatment How to access health informa tion online Indication:Non-smoker Start:05-May-2019 Instruction Type:Patient Education How to access health informa tion online - Detail Indication:Non-smoker Start:05-May-2019 Instruction Type:Patient Education Patient Instructions Indication:Non-smoker Start:05-May-2019 Instruction Type:Provider Instructions for Treatment How to access health informa tion online Indication:BMI 30.0-30.9,adult Start:24-Mar-2019 Instruction Type:Patient Education How to access health informa tion online - Detail Indication:BMI 30.0-30.9,adult Start:24-Mar-2019 Instruction Type:Patient Education Patient Instructions Indication:BMI 30.0-30.9,adult Start:24-Mar-2019 Instruction Type:Provider Instructions for Treatment How to access health informa tion online Indication:BMI 29.0-29.9,adult Start:28-Oct-2018 Instruction Type:Patient Education Patient Instructions Indication:BMI 29.0-29.9,adult Start:28-Oct-2018 Instruction Type:Provider Instructions for Treatment How to access health informa tion online Indication:Non-smoker Start:29-Apr-2018 Instruction Type:Patient Education How to access health informa tion online - Detail Indication:Non-smoker Start:29-Apr-2018 Instruction Type:Patient Education Patient Instructions Indication:Non-smoker Start:29-Apr-2018 Instruction Type:Provider Instructions for Treatment How to access health informa tion online Indication:BMI 26.0-26.9,adult Start:18-Feb-2018 Instruction Type:Patient Education How to access health informa tion online - Detail Indication:BMI 26.0-26.9,adult Start:18-Feb-2018 Instruction Type:Patient Education Patient Instructions Indication:BMI 26.0-26.9,adult Start:18-Feb-2018 Instruction Type:Provider Instructions for Treatment How to access health informa tion online Indication:Current nonsmoker (Renamed from Current non-smoker) Start:21-Apr-2017 Instruction Type:Patient Education How to access health informa tion online - Detail Indication:Current nonsmoker (Renamed from Current non-smoker) Start:21-Apr-2017 Instruction Type:Patient Education Patient Instructions Indication:Current nonsmoker (Renamed from Current non-smoker) Start:21-Apr-2017 Instruction Type:Provider Instructions for Treatment How to access health informa tion online Indication:BMI 30.0-30.9,adult Start:25-Mar-2017 Instruction Type:Patient Education How to access health informa tion online - Detail Indication:BMI 30.0-30.9,adult Start:25-Mar-2017 Instruction Type:Patient Education Patient Instructions Indication:BMI 30.0-30.9,adult Start:25-Mar-2017 Instruction Type:Provider Instructions for Treatment How to access health informa tion online Indication:Physical exam, routine Start:09-Mar-2017 Instruction Type:Patient Education How to access health informa tion online - Detail Indication:Physical exam, routine Start:09-Mar-2017 Instruction Type:Patient Education Patient Instructions Indication:Physical exam, routine Start:09-Mar-2017 Instruction Type:Provider Instructions for Treatment How to access health informa tion online Indication:Impaired fasting glucose Start:14-Jan-2016 Instruction Type:Patient Education How to access health informa tion online - Detail Indication:Impaired fasting glucose Start:14-Jan-2016 Instruction Type:Patient Education Patient Instructions Indication:Impaired fasting glucose Start:14-Jan-2016 Instruction Type:Provider Instructions for Treatment How to access health informa tion online Indication:Impaired fasting glucose Start:09-Sep-2015 Instruction Type:Patient Education How to access health informa tion online - Detail Indication:Impaired fasting glucose Start:09-Sep-2015 Instruction Type:Patient Education Patient Instructions Indication:Impaired fasting glucose Start:09-Sep-2015 Instruction Type:Provider Instructions for Treatment How to access health informa tion online Indication:Physical exam, routine Start:11-Jun-2015 Instruction Type:Patient Education How to access health informa tion online - Detail Indication:Physical exam, routine Start:11-Jun-2015 Instruction Type:Patient Education Patient Instructions Indication:Physical exam, routine Start:11-Jun-2015 Instruction Type:Provider Instructions for Treatment Patient Instructions Indication:Low Back Pain (Renamed from LBP (low back pain)) Start:14-Nov-2013 Instruction Type:Provider Instructions for Treatment Patient Instructions Indication:Low Back Pain (Renamed from LBP (low back pain)) Start:10-Oct-2013 Instruction Type:Provider Instructions for Treatment Patient Instructions Indication:Anxiety Start:03-Jan-2013 Instruction Type:Provider Instructions for Treatment Name Dates Details How to access health informa tion online Indication:BMI 29.0-29.9,adult Start:28-Oct-2018 Instruction Type:Patient Education Patient Instructions Indication:BMI 29.0-29.9,adult Start:28-Oct-2018 Instruction Type:Provider Instructions for Treatment How to access health informa tion online Indication:Non-smoker Start:29-Apr-2018 Instruction Type:Patient Education How to access health informa tion online - Detail Indication:Non-smoker Start:29-Apr-2018 Instruction Type:Patient Education Patient Instructions Indication:Non-smoker Start:29-Apr-2018 Instruction Type:Provider Instructions for Treatment How to access health informa tion online Indication:BMI 26.0-26.9,adult Start:18-Feb-2018 Instruction Type:Patient Education How to access health informa tion online - Detail Indication:BMI 26.0-26.9,adult Start:18-Feb-2018 Instruction Type:Patient Education Patient Instructions Indication:BMI 26.0-26.9,adult Start:18-Feb-2018 Instruction Type:Provider Instructions for Treatment How to access health informa tion online Indication:Current nonsmoker (Renamed from Current non-smoker) Start:21-Apr-2017 Instruction Type:Patient Education How to access health informa tion online - Detail Indication:Current nonsmoker (Renamed from Current non-smoker) Start:21-Apr-2017 Instruction Type:Patient Education Patient Instructions Indication:Current nonsmoker (Renamed from Current non-smoker) Start:21-Apr-2017 Instruction Type:Provider Instructions for Treatment How to access health informa tion online Indication:BMI 30.0-30.9,adult Start:25-Mar-2017 Instruction Type:Patient Education How to access health informa tion online - Detail Indication:BMI 30.0-30.9,adult Start:25-Mar-2017 Instruction Type:Patient Education Patient Instructions Indication:BMI 30.0-30.9,adult Start:25-Mar-2017 Instruction Type:Provider Instructions for Treatment How to access health informa tion online Indication:Physical exam, routine Start:09-Mar-2017 Instruction Type:Patient Education How to access health informa tion online - Detail Indication:Physical exam, routine Start:09-Mar-2017 Instruction Type:Patient Education Patient Instructions Indication:Physical exam, routine Start:09-Mar-2017 Instruction Type:Provider Instructions for Treatment How to access health informa tion online Indication:Impaired fasting glucose Start:14-Jan-2016 Instruction Type:Patient Education How to access health informa tion online - Detail Indication:Impaired fasting glucose Start:14-Jan-2016 Instruction Type:Patient Education Patient Instructions Indication:Impaired fasting glucose Start:14-Jan-2016 Instruction Type:Provider Instructions for Treatment How to access health informa tion online Indication:Impaired fasting glucose Start:09-Sep-2015 Instruction Type:Patient Education How to access health informa tion online - Detail Indication:Impaired fasting glucose Start:09-Sep-2015 Instruction Type:Patient Education Patient Instructions Indication:Impaired fasting glucose Start:09-Sep-2015 Instruction Type:Provider Instructions for Treatment How to access health informa tion online Indication:Physical exam, routine Start:11-Jun-2015 Instruction Type:Patient Education How to access health informa tion online - Detail Indication:Physical exam, routine Start:11-Jun-2015 Instruction Type:Patient Education Patient Instructions Indication:Physical exam, routine Start:11-Jun-2015 Instruction Type:Provider Instructions for Treatment Patient Instructions Indication:Low Back Pain (Renamed from LBP (low back pain)) Start:14-Nov-2013 Instruction Type:Provider Instructions for Treatment Patient Instructions Indication:Low Back Pain (Renamed from LBP (low back pain)) Start:10-Oct-2013 Instruction Type:Provider Instructions for Treatment Patient Instructions Indication:Anxiety Start:03-Jan-2013 Instruction Type:Provider Instructions for Treatment Name Dates Details How to access health informa tion online Indication:BMI 30.0-30.9,adult Start:10-Jan-2020 Instruction Type:Patient Education How to access health informa tion online - Detail Indication:BMI 30.0-30.9,adult Start:10-Jan-2020 Instruction Type:Patient Education Patient Instructions Indication:BMI 30.0-30.9,adult Start:10-Jan-2020 Instruction Type:Provider Instructions for Treatment How to access health informa tion online Indication:Non-smoker Start:01-Sep-2019 Instruction Type:Patient Education How to access health informa tion online - Detail Indication:Non-smoker Start:01-Sep-2019 Instruction Type:Patient Education Patient Instructions Indication:Non-smoker Start:01-Sep-2019 Instruction Type:Provider Instructions for Treatment How to access health informa tion online Indication:Non-smoker Start:05-May-2019 Instruction Type:Patient Education How to access health informa tion online - Detail Indication:Non-smoker Start:05-May-2019 Instruction Type:Patient Education Patient Instructions Indication:Non-smoker Start:05-May-2019 Instruction Type:Provider Instructions for Treatment How to access health informa tion online Indication:BMI 30.0-30.9,adult Start:24-Mar-2019 Instruction Type:Patient Education How to access health informa tion online - Detail Indication:BMI 30.0-30.9,adult Start:24-Mar-2019 Instruction Type:Patient Education Patient Instructions Indication:BMI 30.0-30.9,adult Start:24-Mar-2019 Instruction Type:Provider Instructions for Treatment How to access health informa tion online Indication:BMI 29.0-29.9,adult Start:28-Oct-2018 Instruction Type:Patient Education Patient Instructions Indication:BMI 29.0-29.9,adult Start:28-Oct-2018 Instruction Type:Provider Instructions for Treatment How to access health informa tion online Indication:Non-smoker Start:29-Apr-2018 Instruction Type:Patient Education How to access health informa tion online - Detail Indication:Non-smoker Start:29-Apr-2018 Instruction Type:Patient Education Patient Instructions Indication:Non-smoker Start:29-Apr-2018 Instruction Type:Provider Instructions for Treatment How to access health informa tion online Indication:BMI 26.0-26.9,adult Start:18-Feb-2018 Instruction Type:Patient Education How to access health informa tion online - Detail Indication:BMI 26.0-26.9,adult Start:18-Feb-2018 Instruction Type:Patient Education Patient Instructions Indication:BMI 26.0-26.9,adult Start:18-Feb-2018 Instruction Type:Provider Instructions for Treatment How to access health informa tion online Indication:Current nonsmoker (Renamed from Current non-smoker) Start:21-Apr-2017 Instruction Type:Patient Education How to access health informa tion online - Detail Indication:Current nonsmoker (Renamed from Current non-smoker) Start:21-Apr-2017 Instruction Type:Patient Education Patient Instructions Indication:Current nonsmoker (Renamed from Current non-smoker) Start:21-Apr-2017 Instruction Type:Provider Instructions for Treatment How to access health informa tion online Indication:BMI 30.0-30.9,adult Start:25-Mar-2017 Instruction Type:Patient Education How to access health informa tion online - Detail Indication:BMI 30.0-30.9,adult Start:25-Mar-2017 Instruction Type:Patient Education Patient Instructions Indication:BMI 30.0-30.9,adult Start:25-Mar-2017 Instruction Type:Provider Instructions for Treatment How to access health informa tion online Indication:Physical exam, routine Start:09-Mar-2017 Instruction Type:Patient Education How to access health informa tion online - Detail Indication:Physical exam, routine Start:09-Mar-2017 Instruction Type:Patient Education Patient Instructions Indication:Physical exam, routine Start:09-Mar-2017 Instruction Type:Provider Instructions for Treatment How to access health informa tion online Indication:Impaired fasting glucose Start:14-Jan-2016 Instruction Type:Patient Education How to access health informa tion online - Detail Indication:Impaired fasting glucose Start:14-Jan-2016 Instruction Type:Patient Education Patient Instructions Indication:Impaired fasting glucose Start:14-Jan-2016 Instruction Type:Provider Instructions for Treatment How to access health informa tion online Indication:Impaired fasting glucose Start:09-Sep-2015 Instruction Type:Patient Education How to access health informa tion online - Detail Indication:Impaired fasting glucose Start:09-Sep-2015 Instruction Type:Patient Education Patient Instructions Indication:Impaired fasting glucose Start:09-Sep-2015 Instruction Type:Provider Instructions for Treatment How to access health informa tion online Indication:Physical exam, routine Start:11-Jun-2015 Instruction Type:Patient Education How to access health informa tion online - Detail Indication:Physical exam, routine Start:11-Jun-2015 Instruction Type:Patient Education Patient Instructions Indication:Physical exam, routine Start:11-Jun-2015 Instruction Type:Provider Instructions for Treatment Patient Instructions Indication:Low Back Pain (Renamed from LBP (low back pain)) Start:14-Nov-2013 Instruction Type:Provider Instructions for Treatment Patient Instructions Indication:Low Back Pain (Renamed from LBP (low back pain)) Start:10-Oct-2013 Instruction Type:Provider Instructions for Treatment Patient Instructions Indication:Anxiety Start:03-Jan-2013 Instruction Type:Provider Instructions for Treatment Name Dates Details How to access health informa tion online Indication:BMI 29.0-29.9,adult Start:28-Oct-2018 Instruction Type:Patient Education Patient Instructions Indication:BMI 29.0-29.9,adult Start:28-Oct-2018 Instruction Type:Provider Instructions for Treatment How to access health informa tion online Indication:Non-smoker Start:29-Apr-2018 Instruction Type:Patient Education How to access health informa tion online - Detail Indication:Non-smoker Start:29-Apr-2018 Instruction Type:Patient Education Patient Instructions Indication:Non-smoker Start:29-Apr-2018 Instruction Type:Provider Instructions for Treatment How to access health informa tion online Indication:BMI 26.0-26.9,adult Start:18-Feb-2018 Instruction Type:Patient Education How to access health informa tion online - Detail Indication:BMI 26.0-26.9,adult Start:18-Feb-2018 Instruction Type:Patient Education Patient Instructions Indication:BMI 26.0-26.9,adult Start:18-Feb-2018 Instruction Type:Provider Instructions for Treatment How to access health informa tion online Indication:Current nonsmoker (Renamed from Current non-smoker) Start:21-Apr-2017 Instruction Type:Patient Education How to access health informa tion online - Detail Indication:Current nonsmoker (Renamed from Current non-smoker) Start:21-Apr-2017 Instruction Type:Patient Education Patient Instructions Indication:Current nonsmoker (Renamed from Current non-smoker) Start:21-Apr-2017 Instruction Type:Provider Instructions for Treatment How to access health informa tion online Indication:BMI 30.0-30.9,adult Start:25-Mar-2017 Instruction Type:Patient Education How to access health informa tion online - Detail Indication:BMI 30.0-30.9,adult Start:25-Mar-2017 Instruction Type:Patient Education Patient Instructions Indication:BMI 30.0-30.9,adult Start:25-Mar-2017 Instruction Type:Provider Instructions for Treatment How to access health informa tion online Indication:Physical exam, routine Start:09-Mar-2017 Instruction Type:Patient Education How to access health informa tion online - Detail Indication:Physical exam, routine Start:09-Mar-2017 Instruction Type:Patient Education Patient Instructions Indication:Physical exam, routine Start:09-Mar-2017 Instruction Type:Provider Instructions for Treatment How to access health informa tion online Indication:Impaired fasting glucose Start:14-Jan-2016 Instruction Type:Patient Education How to access health informa tion online - Detail Indication:Impaired fasting glucose Start:14-Jan-2016 Instruction Type:Patient Education Patient Instructions Indication:Impaired fasting glucose Start:14-Jan-2016 Instruction Type:Provider Instructions for Treatment How to access health informa tion online Indication:Impaired fasting glucose Start:09-Sep-2015 Instruction Type:Patient Education How to access health informa tion online - Detail Indication:Impaired fasting glucose Start:09-Sep-2015 Instruction Type:Patient Education Patient Instructions Indication:Impaired fasting glucose Start:09-Sep-2015 Instruction Type:Provider Instructions for Treatment How to access health informa tion online Indication:Physical exam, routine Start:11-Jun-2015 Instruction Type:Patient Education How to access health informa tion online - Detail Indication:Physical exam, routine Start:11-Jun-2015 Instruction Type:Patient Education Patient Instructions Indication:Physical exam, routine Start:11-Jun-2015 Instruction Type:Provider Instructions for Treatment Patient Instructions Indication:Low Back Pain (Renamed from LBP (low back pain)) Start:14-Nov-2013 Instruction Type:Provider Instructions for Treatment Patient Instructions Indication:Low Back Pain (Renamed from LBP (low back pain)) Start:10-Oct-2013 Instruction Type:Provider Instructions for Treatment Patient Instructions Indication:Anxiety Start:03-Jan-2013 Instruction Type:Provider Instructions for Treatment Advance Directives No Advanced Directives Records Found Name Dates Details Immunization Registry [place] - Effective on 02/18/2018. Expiration date unspecified Effective:18-Feb-2018 Name Dates Details Immunization Registry [place] - Effective on 02/18/2018. Expiration date unspecified Effective:18-Feb-2018 Name Dates Details Immunization Registry [place] - Effective on 02/18/2018. Expiration date unspecified Effective:18-Feb-2018 Name Dates Details Immunization Registry [place] - Effective on 02/18/2018. Expiration date unspecified Effective:18-Feb-2018 Name Dates Details Immunization Registry [place] - Effective on 02/18/2018. Expiration date unspecified Effective:18-Feb-2018 Name Dates Details Immunization Registry [place] - Effective on 02/18/2018. Expiration date unspecified Effective:18-Feb-2018 Name Dates Details Immunization Registry [place] - Effective on 02/18/2018. Expiration date unspecified Effective:18-Feb-2018 Name Dates Details Immunization Registry [place] - Effective on 02/18/2018. Expiration date unspecified Effective:18-Feb-2018 Name Dates Details Immunization Registry [place] - Effective on 02/18/2018. Expiration date unspecified Effective:18-Feb-2018 Name Dates Details Immunization Registry [place] - Effective on 02/18/2018. Expiration date unspecified Effective:18-Feb-2018 Name Dates Details Immunization Registry [place] - Effective on 02/18/2018. Expiration date unspecified Effective:18-Feb-2018 Name Dates Details Immunization Registry [place] - Effective on 02/18/2018. Expiration date unspecified Effective:18-Feb-2018 Name Dates Details Immunization Registry [place] - Effective on 02/18/2018. Expiration date unspecified Effective:18-Feb-2018 Name Dates Details Immunization Registry [place] - Effective on 02/18/2018. Expiration date unspecified Effective:18-Feb-2018 Name Dates Details Immunization Registry [place] - Effective on 02/18/2018. Expiration date unspecified Effective:18-Feb-2018 Name Dates Details Immunization Registry [place] - Effective on 02/18/2018. Expiration date unspecified Effective:18-Feb-2018 Advance Directive Response Recorded Date/ Time Living Will No December 07 2 12:06am Power of [employer] Specialist No December 07, 022 12:06am Name Dates Details Immunization Registry [place] - Effective on 02/18/2018. Expiration date unspecified Effective:18-Feb-2018 Advance Directive Response Recorded Date/ Time Living Will No January 23 2 10:07pm Power of [employer] Specialist No January 23, 2 022 10:07pm Name Dates Details Immunization Registry [place] - Effective on 02/18/2018. Expiration date unspecified Effective:18-Feb-2018 Advance Directive Response Recorded Date/ Time Living Will No January 23 2 9:07pm Power of Internet Security Specialist No January 23, 2 022 9:07pm Name Dates Details Immunization Registry [place] - Effective on 02/18/2018. Expiration date unspecified Effective:18-Feb-2018 Name Dates Details Immunization Registry [place] - Effective on 02/18/2018. Expiration date unspecified Effective:18-Feb-2018 Name Dates Details Immunization Registry [place] - Effective on 02/18/2018. Expiration date unspecified Effective:18-Feb-2018 Name Dates Details Immunization Registry [place] - Effective on 02/18/2018. Expiration date unspecified Effective:18-Feb-2018 Name Dates Details Immunization Registry [place] - Effective on 02/18/2018. Expiration date unspecified Effective:18-Feb-2018 Name Dates Details Immunization Registry [place] - Effective on 02/18/2018. Expiration date unspecified Effective:18-Feb-2018 Name Dates Details Immunization Registry [place] - Effective on 02/18/2018. Expiration date unspecified Effective:18-Feb-2018 Name Dates Details Immunization Registry [place] - Effective on 02/18/2018. Expiration date unspecified Effective:18-Feb-2018 Chief Complaint and Reason for Visit Chief Complaint PALPATATIONS Chief Complaint PALPATATIONS TRICUSPID INSUFFICIENCY Chief Complaint PALPATATIONS TRICUSPID INSUFFICIENCY Amb Documentation HTN Chief Complaint PALPATATIONS TRICUSPID INSUFFICIENCY Amb Documentation HTN RACING HB/REF. JAYA CHUCHOHTHMIA Reason for Visit Essential hypertensi on Non-rheumatic tricuspid valve insufficiency Palpitations Pulmonary hypertension Pure hypercholesterolemia Summary Purpose Medications Administered Section Inactive Administered Medications - up to 3 most recent administrations Medication Order MAR Action Action Date Dose Rate Site sodium chloride 0.9 % (flush) 10 mL (BD POSIFLUSH) 10 mL, INTRAVENOUS, DIRECTED NEEDED, 1 dose, Starting on Wed11/20/22 at 1124, Until Wed01/15/23 at 1238, Per Protocol - for use during ECHO procedure only, no IV access, insert saline lock prior to administering contrast. Discontinue saline lock post exam. If patient has central line or IVAD, may access for administration according to line specific nursing protocol. Once exam is complete, flush line and de-access per line specific nursing protocol. Given 01/15/2023 12:38 PM EDT 10 mL Additional Source Comments Source Comments (unrecognize d section and content) In the event this informatio n is protected by the Federal Confidentiality of Alcohol and Drug Abuse Patient Records regulations: The Federal rules restrict any use of the information to criminally investigate or prosecute any alcohol or drug abuse patient.[facility] the event this information is protected by the Federal Confidentiality of Alcohol and Drug Abuse Patient Records regulations: The Federal rules restrict any use of the information to criminally investigate or prosecute any alcohol or drug abuse patient.[facility] CenterIn the event this information is protected by the Federal Confidentiality of Alcohol and Drug Abuse Patient Records regulations: The Federal rules restrict any use of the information to criminally investigate or prosecute any alcohol or drug abuse patient.[facility] CenterIn the event this information is protected by the Federal Confidentiality of Alcohol and Drug Abuse Patient Records regulations: The Federal rules restrict any use of the information to criminally investigate or prosecute any alcohol or drug abuse patient.[facility] CenterIn the event this information is protected by the Federal Confidentiality of Alcohol and Drug Abuse Patient Records regulations: The Federal rules restrict any use of the information to criminally investigate or prosecute any alcohol or drug abuse patient.[facility] CenterIn the event this information is protected by the Federal Confidentiality of Alcohol and Drug Abuse Patient Records regulations: The Federal rules restrict any use of the information to criminally investigate or prosecute any alcohol or drug abuse patient.[facility] CenterIn the event this information is protected by the Federal Confidentiality of Alcohol and Drug Abuse Patient Records regulations: The Federal rules restrict any use of the information to criminally investigate or prosecute any alcohol or drug abuse patient.[facility] CenterIn the event this information is protected by the Federal Confidentiality of Alcohol and Drug Abuse Patient Records regulations: The Federal rules restrict any use of the information to criminally investigate or prosecute any alcohol or drug abuse patient.[facility] CenterIn the event this information is protected by the Federal Confidentiality of Alcohol and Drug Abuse Patient Records regulations: The Federal rules restrict any use of the information to criminally investigate or prosecute any alcohol or drug abuse patient.[facility] CenterIn the event this information is protected by the Federal Confidentiality of Alcohol and Drug Abuse Patient Records regulations: The Federal rules restrict any use of the information to criminally investigate or prosecute any alcohol or drug abuse patient.[facility] CenterIn the event this information is protected by the Federal Confidentiality of Alcohol and Drug Abuse Patient Records regulations: The Federal rules restrict any use of the information to criminally investigate or prosecute any alcohol or drug abuse patient.[facility] CenterIn the event this information is protected by the Federal Confidentiality of Alcohol and Drug Abuse Patient Records regulations: The Federal rules restrict any use of the information to criminally investigate or prosecute any alcohol or drug abuse patient.[facility] CenterIn the event this information is protected by the Federal Confidentiality of Alcohol and Drug Abuse Patient Records regulations: The Federal rules restrict any use of the information to criminally investigate or prosecute any alcohol or drug abuse patient.[facility] CenterIn the event this information is protected by the Federal Confidentiality of Alcohol and Drug Abuse Patient Records regulations: The Federal rules restrict any use of the information to criminally investigate or prosecute any alcohol or drug abuse patient.[facility] CenterIn the event this information is protected by the Federal Confidentiality of Alcohol and Drug Abuse Patient Records regulations: The Federal rules restrict any use of the information to criminally investigate or prosecute any alcohol or drug abuse patient.[facility] CenterIn the event this information is protected by the Federal Confidentiality of Alcohol and Drug Abuse Patient Records regulations: The Federal rules restrict any use of the information to criminally investigate or prosecute any alcohol or drug abuse patient.[facility] CenterIn the event this information is protected by the Federal Confidentiality of Alcohol and Drug Abuse Patient Records regulations: The Federal rules restrict any use of the information to criminally investigate or prosecute any alcohol or drug abuse patient.[facility] CenterIn the event this information is protected by the Federal Confidentiality of Alcohol and Drug Abuse Patient Records regulations: The Federal rules restrict any use of the information to criminally investigate or prosecute any alcohol or drug abuse patient.[facility] CenterIn the event this information is protected by the Federal Confidentiality of Alcohol and Drug Abuse Patient Records regulations: The Federal rules restrict any use of the information to criminally investigate or prosecute any alcohol or drug abuse patient.[facility] CenterIn the event this information is protected by the Federal Confidentiality of Alcohol and Drug Abuse Patient Records regulations: The Federal rules restrict any use of the information to criminally investigate or prosecute any alcohol or drug abuse patient.[facility] CenterIn the event this information is protected by the Federal Confidentiality of Alcohol and Drug Abuse Patient Records regulations: The Federal rules restrict any use of the information to criminally investigate or prosecute any alcohol or drug abuse patient.[facility] CenterIn the event this information is protected by the Federal Confidentiality of Alcohol and Drug Abuse Patient Records regulations: The Federal rules restrict any use of the information to criminally investigate or prosecute any alcohol or drug abuse patient.[facility] CenterIn the event this information is protected by the Federal Confidentiality of Alcohol and Drug Abuse Patient Records regulations: The Federal rules restrict any use of the information to criminally investigate or prosecute any alcohol or drug abuse patient.[facility] CenterIn the event this information is protected by the Federal Confidentiality of Alcohol and Drug Abuse Patient Records regulations: The Federal rules restrict any use of the information to criminally investigate or prosecute any alcohol or drug abuse patient.[facility] Reason for Visit (unrecogniz ed section and content) Reason Comments Refill Request Reason Comments Well Woman Reason Comments PH Reason Comments Results Reason Comments Sore Throat X 2 days Reason Comments Other Medical Records Reason Comments Yearly Exam Reason Comments Follow Up Reason Onset Date Comments Orders 09/29/2024 Reason Comments Mammogram Result Call Back right breast diag mamm and us cb per ld Reason Comments Radiology US Specialty Diagnoses / Procedures Referred By Contac t Referred To Contact [facility] Diagnoses Abnormal mammogram Procedures US BREAST LTD RIGHT US BREAST UNI REAL TIME WITH IMAGE LIMITED Danae Bar APRN.[facility]OVAL/PLOWING [address] [place] [address] Phone: tel: fax: [facility] [address] [place] [address] Referral ID Status Reason Start Date Expiration Date V isits Requested Visits Authorized [id number] Closed Auto-Generate d Referral 09/29/2024 10/29/2025 1 1 Care Teams (unrecognized sec tion and content) Credit Review Analyst Relationship Specialty Start Date End Date Stone Torres MD [address] [place] [address] 2 [place] [address] PCP - General 04/29/04 Credit Review Analyst Relationship Specialty Start Date End Date Stone Torres MD [address] [place] [address] 2 [place] [address] PCP - General 04/29/04 Credit Review Analyst Relationship Specialty Start Date End Date Stone Torres MD [address] [place] [address] 2 [place] [address] PCP - General 04/29/04 Credit Review Analyst Relationship Specialty Start Date End Date Stone Torres MD [address] [place] [address] 2 [place] [address] PCP - General 04/29/04 Credit Review Analyst Relationship Specialty Start Date End Date Stone Torres MD [address] [place] [address] 2 [place] [address] PCP - General 04/29/04 Credit Review Analyst Relationship Specialty Start Date End Date Stone Torres MD [facility] [address] [place] [address] PCP - General 04/29/04 Credit Review Analyst Relationship Specialty Start Date End Date Stone Torres MD [address] [place] [address] 2 [place] [address] PCP - General 04/29/04 Credit Review Analyst Relationship Specialty Start Date End Date Stone Torres MD [address] [place] [address] 2 [place] [address] PCP - General 04/29/04 Credit Review Analyst Relationship Specialty Start Date End Date Stone Torres MD [address] [place] [address] 2 [place] [address] PCP - General 04/29/04 Credit Review Analyst Relationship Specialty Start Date End Date Stone Torres MD [address] [place] [address] 2 [place] [address] PCP - General 04/29/04 Credit Review Analyst Relationship Specialty Start Date End Date Stone Torres MD [address] [place] [address] 2 [place] [address] PCP - General 04/29/04 Credit Review Analyst Relationship Specialty Start Date End Date Stone Torres MD [address] [place] [address] 2 [place] [address] PCP - General 04/29/04 Credit Review Analyst Relationship Specialty Start Date End Date Stone Torres MD [address] [place] [address] PCP - General 04/29/04 Credit Review Analyst Relationship Specialty Start Date End Date Stone Torres MD [address] [place] [address] 2 [place] [address] PCP - General 04/29/04 Credit Review Analyst Relationship Specialty Start Date End Date Stone Torres MD [address] [place] [address] 2 [place] [address] PCP - General 04/29/04 Credit Review Analyst Relationship Specialty Start Date End Date Stone Torres MD [address] [place] [address] 2 [place] [address] PCP - General 04/29/04 Credit Review Analyst Relationship Specialty Start Date End Date Stone Torres MD [address] [place] [address] 2 [place] [address] PCP - General 04/29/04 Sulaiman Whyte MD [address] [place] [address] Pulmonary and Critical Care Medicine 03/09/24 Credit Review Analyst Relationship Specialty Start Date End Date Stone Torres MD [address] [place] [address] 2 [place] [address] PCP - General 04/29/04 Sulaiman Whyte MD [address] [place] [address] Pulmonary and Critical Care Medicine 03/09/24 Credit Review Analyst Relationship Specialty Start Date End Date Stone Torres MD [address] [place] [address] 2 [place] [address] PCP - General 04/29/04 Sulaiman Whyte MD [address] [place] [address] Pulmonary and Critical Care Medicine 03/09/24 Credit Review Analyst Relationship Specialty Start Date End Date Stone Torres MD [address] [facility] [address] [place] [address] PCP - General 04/29/04 Sulaiman Whyte MD [address] [place] [address] Pulmonary and Critical Care Medicine 03/09/24 Credit Review Analyst Relationship Specialty Start Date End Date Stone Torres MD [address] [facility] [address] [place] [address] PCP - General 04/29/04 Sulaiman Whyte MD [address] [place] [address] Pulmonary and Critical Care Medicine 03/09/24 Credit Review Analyst Relationship Specialty Start Date End Date Stone Torres MD [address] [facility] [address] [place] [address] PCP - General 04/29/04 Sulaiman Whyte MD [address] [place] [address] Pulmonary and Critical Care Medicine 03/09/24 Goals (unrecognized section and content) Goals may be documented in a n alternate sectionGoals may be documented in an alternate sectionGoals may be documented in an alternate sectionGoals may be documented in an alternate sectionGoals may be documented in an alternate sectionGoals may be documented in an alternate section INFORMATION SOURCE (unrecogn ized section and content) DATE CREATED AUTHOR 02/28/2022 [employer] DATE CREATED AUTHOR AUTHOR'S ORGANIZ ATION 07/04/2022 [facility] DATE CREATED AUTHOR AUTHOR'S ORGANIZ ATION 03/06/2024 [facility] DATE CREATED AUTHOR AUTHOR'S ORGANIZ ATION 10/11/2024 [facility] DATE CREATED AUTHOR AUTHOR'S ORGANIZ ATION 02/24/2025 [facility] FOR RECORDS PERTAINING TO PATIENTS WHO ARE OR HAVE BEEN ENROLLED IN A CHEMICAL DEPENDENCY/SUBSTANCEABUSE PROGRAM, SOME INFORMATION MAY BE OMITTED. This clinical summary was aggregated from multiple sources. Caution should be exercised in using it in the provision of clinical care. This summary normalizes information from multiple sources, and as a consequence, information in this document may materially change the coding, format and clinical context of patient data. In addition, data may be omitted in some cases. CLINICAL DECISIONS SHOULD BE BASED ON THE PRIMARY CLINICAL RECORDS. [employer] [facility]. provides no warranty or guarantee of the accuracy or completeness of information in this document.
[2025-03-16 18:30] VITALS: BP 149/84; O2SAT 97
[2025-03-16 18:39] LABS: Anion Gap 13 (5-15); BUN 20 mg/dL (4-19); BUN/Creat Ratio 22.4 RATIO (10-20); Calcium,Total 9.0 mg/dL (7.6-11.0); Carbon Dioxide 24.7 mmol/L (21.0-32.0); Chloride 101 mmol/L (98-108); Estimated Creatinine Clearance 77.81 ml/min (50-250); Glucose 179 mg/dL (70-99); Potassium 4.1 mmol/L (3.3-5.1)
[2025-03-16 19:00] VITALS: BP 149/84; PULSE 113; RESP 18; TEMP 35.9; O2SAT 97
== END 2025-03-16 19:02 | disposition home or self-care (01) ==
PROVIDERS: Emergency Provider Emergency Medicine; PCP Internal Medicine; Visit Provider Emergency Medicine
DX: R00.2 Palpitations (principal); R00.0 Tachycardia, unspecified; E03.9 Hypothyroidism, unspecified; E78.00 Pure hypercholesterolemia, unspecified; F90.9 Attention-deficit hyperactivity disorder, unspecified type; I10 Essential (primary) hypertension
CPT/HCPCS: 80048; 85027; 93005; 99284; A4216